=== PATIENT | female | born 1930 | race African-American/Black ===

== ENCOUNTER 2018-04-07 16:47 | Inpatient (IN) | payer OTHER ==
--- OUTSIDE RECORDS SUMMARY | 2018-04-07 16:49 | XMS REPORT | Clinical Summary ---
:1930 Author Organization [facility] Address [address] [place] [address] Care Team Providers Name Role Phone Sharpless Primary Care Provider Unavailable Allergies Active Allergy Reactions Severity Noted Date Comments Penicillins Other (See Comments) High 09/22/2015 Unknown reaction Medications Medication Sig Dispensed Refills Start Date End Date Status tolterodine (DETROL) 2 Take 2 mg by 0 Active MG tabletIndications: mouth 2 (two) Urinary Urgency times daily. allopurinol (ZYLOPRIM) Take 200 mg by 0 Active 100 MG mouth daily . tabletIndications: gout rivaroxaban (XARELTO) 20 Take 20 mg by 0 Active mg Tab mouth daily. tabletIndications: heart stent amLODIPine (NORVASC) 10 Take 10 mg by 0 Active MG tablet mouth daily. atenolol (TENORMIN) 50 Take 50 mg by 0 Active MG tablet mouth daily. furosemide (LASIX) 40 MG Take 60 mg by 0 Active tablet mouth daily . levETIRAcetam (KEPPRA) Take 750 mg by 0 Active 750 MG tablet mouth 2 (two) times daily. sertraline (ZOLOFT) 25 Take 25 mg by 0 Active MG tablet mouth daily. valsartan (DIOVAN) 160 Take 160 mg by 0 Active MG tablet mouth daily. benzonatate (TESSALON) Take 100 mg by 0 Active 100 MG capsule mouth every 6 (six) hours as needed for Cough. doxycycline (DORYX) 100 Take 100 mg by 0 Active MG EC tablet mouth 2 (two) times daily. 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 Last Filed Vital Signs Not on file Plan of Treatment Not on file Results Not on fileafter 04/06/2017 Insurance Payer Benefit Plan / Group Subscriber ID Type Phone Address [facility] Maps Contracted Advance Directives For more information, please contact:[address] [phone] Code Status Date Activated Date Inactivated Comments Full Code 09/22/2015 10:53 AM 10/03/2015 5:33 PM This code status was determined by: Patient
--- OUTSIDE RECORDS SUMMARY | 2018-04-07 16:50 | XMS REPORT ---
:1930 [facility] [address] [place] [id number] Care Team Providers Name Role Phone JORDEN MUNOZ Unavailable Unavailable Problems This patient has no known problems. Allergies, Adverse Reactions, Alerts This patient has no known allergies or adverse reactions. Medications This patient has no known medications. Results Test Description Test Time Test Comments Text Results Atomic Results Result Comments BLOOD CULTURE 2016-10-29 18:00:00 Test Item Value Reference Range Comments CULTURE (BEAKER) (test fzxi=5598) No growth in 5 days BLOOD [id number] 18:00:00 Test Item Value Reference Range Comments CULTURE (BEAKER) (test xvbq=7090) No growth in 5 days POCT-GLUCOSE [id number] 07:52:00 Test Item Value Reference Range Comments POC-GLUCOSE METER (BEAKER) 95 mg/dL 70-[address] [facility] [address] [facility] (test vhul=9170) [facility] [address] TSH/FREE T4 IF [id number] 06:35:00 Test Item Value Reference Range Comments THYROID STIMULATING HORMONE (BEAKER) (test 1.58 uIU/mL 0.35-4.94 knwq=830) VITAMIN D, [id number] 05:55:00 Test Item Value Reference Range Comments VITAMIN D 25-OH (BEAKER) (test wfkn=1373) < ng/mL 13.0-47.8 TROPONIN [id number] 05:12:00 Test Item Value Reference Range Comments TROPONIN I (BEAKER) (test rwgk=965) 0.02 ng/mL 0.00-0.03 Effective 01/24/2014: Reference Range ChangeNew: 0.00-0.03 Previous 0.00- 0.15Troponin I (TnI) levels must be interpreted in the context of the presenting symptoms and the clinical findings. Elevated TnI levels indicate myocardial damage, but are not specific for ischemic heart disease. Elevated TnI levels are seen in patients with other cardiac conditions (including myocarditis and congestive heartfailure), and slight TnI elevations occur in patients with other conditions, including sepsis, renalfailure, acidosis, acute neurological disease, and persistent tachyarrhythmia.[id number] 05:04: 00 Test Item Value Reference Range Comments PHOSPHORUS (BEAKER) (test ivbp=473) 2.9 mg/dL 2.3-4.7 [id number] 05:04:00 Test Item Value Reference Range Comments MAGNESIUM (BEAKER) (test evfo=383) 1.9 mg/dL 1.6-2.6 BASIC METABOLIC [id number] 05:04:00 Test Item Value Reference Range Comments SODIUM (BEAKER) (test 142 meq/L 136-145 qkyx=238) POTASSIUM (BEAKER) (test 3.9 meq/L 3.5-5.1 vtgn=909) CHLORIDE (BEAKER) (test 112 meq/L 98-107 qvjw=473) CO2 (BEAKER) (test 23 meq/L 22-29 sjia=028) BLOOD UREA NITROGEN 19 mg/dL 7-21 (BEAKER) (test fmpl=232) CREATININE (BEAKER) (test 0.84 mg/dL 0.57-1.25 iqpx=634) GLUCOSE RANDOM (BEAKER) 107 mg/dL 70-105 (test rggd=928) CALCIUM (BEAKER) (test 8.9 mg/dL 8.4-10.2 lbax=031) EGFR (BEAKER) (test 78 mL/min/1.73 sq m ESTIMATED GFR IS NOT lybu=8295) ACCURATE CREATININE CLEARANCE IN PREDICTING GLOMERULAR FILTRATION RATE. ESTIMATED GFR IS NOT APPLICABLE FOR DIALYSIS PATIENTS. CBC W/PLT COUNT & AUTO [id number] 04:51:00 Test Item Value Reference Range Comments WHITE BLOOD CELL COUNT (BEAKER) (test ipvx=609) 8.3 K/ L 3.5-10.5 RED BLOOD CELL COUNT (BEAKER) (test nxtd=294) 3.07 M/ L 3.93-5.22 HEMOGLOBIN (BEAKER) (test gmqu=990) 9.2 GM/DL 11.2-15.7 HEMATOCRIT (BEAKER) (test akxv=157) 29.1 % 34.1-44.9 MEAN CORPUSCULAR VOLUME (BEAKER) (test uabq=800) 94.8 fL 79.4-94.8 MEAN CORPUSCULAR HEMOGLOBIN (BEAKER) (test 30.0 pg 25.6-32.2 glrv=455) MEAN CORPUSCULAR HEMOGLOBIN CONC (BEAKER) (test 31.6 GM/DL 32.2-35.5 usyu=875) RED CELL DISTRIBUTION WIDTH (BEAKER) (test 14.3 % 11.7-14.4 cnvw=474) PLATELET COUNT (BEAKER) (test gejo=194) 182 K/CU MM 150-450 MEAN PLATELET VOLUME (BEAKER) (test cmnk=989) 9.8 fL 9.4-12.3 NUCLEATED RED BLOOD CELLS (BEAKER) (test 0 /100 WBC 0-0 jkoy=521) NEUTROPHILS RELATIVE PERCENT (BEAKER) (test 61 % zsrj=483) LYMPHOCYTES RELATIVE PERCENT (BEAKER) (test 31 % nsds=113) MONOCYTES RELATIVE PERCENT (BEAKER) (test 8 % qxht=371) EOSINOPHILS RELATIVE PERCENT (BEAKER) (test 0 % mygw=820) BASOPHILS RELATIVE PERCENT (BEAKER) (test 1 % tlsg=618) NEUTROPHILS ABSOLUTE COUNT (BEAKER) (test 5.03 K/ L 1.56-6.13 ylme=977) LYMPHOCYTES ABSOLUTE COUNT (BEAKER) (test 2.54 K/ L 1.18-3.74 cfav=919) MONOCYTES ABSOLUTE COUNT (BEAKER) (test 0.64 K/ L 0.24-0.36 koiw=758) EOSINOPHILS ABSOLUTE COUNT (BEAKER) (test 0.01 K/ L 0.04-0.36 bqhz=789) BASOPHILS ABSOLUTE COUNT (BEAKER) (test 0.05 K/ L 0.01-0.08 ezjs=266) IMMATURE GRANULOCYTES-RELATIVE PERCENT (BEAKER) 1 % 0-1 (test lsxq=7390) POCT-GLUCOSE [id number] 23:47:00 Test Item Value Reference Range Comments POC-GLUCOSE METER (BEAKER) 121 mg/dL 70-[address] [facility] [address] [facility] (test cvfi=9380) [place] [address] CBC W/PLT COUNT & AUTO [id number] 07:13:00 Test Item Value Reference Range Comments WHITE BLOOD CELL COUNT (BEAKER) (test spbs=211) 8.9 K/ L 3.5-10.5 RED BLOOD CELL COUNT (BEAKER) (test mota=162) 3.47 M/ L 3.93-5.22 HEMOGLOBIN (BEAKER) (test zzjh=936) 10.6 GM/DL 11.2-15.7 HEMATOCRIT (BEAKER) (test ugja=228) 33.4 % 34.1-44.9 MEAN CORPUSCULAR VOLUME (BEAKER) (test nsyx=488) 96.3 fL 79.4-94.8 MEAN CORPUSCULAR HEMOGLOBIN (BEAKER) (test 30.5 pg 25.6-32.2 nbyo=711) MEAN CORPUSCULAR HEMOGLOBIN CONC (BEAKER) (test 31.7 GM/DL 32.2-35.5 yicn=506) RED CELL DISTRIBUTION WIDTH (BEAKER) (test 14.6 % 11.7-14.4 aeve=529) PLATELET COUNT (BEAKER) (test xtfn=690) 206 K/CU MM 150-450 MEAN PLATELET VOLUME (BEAKER) (test gnec=324) 10.2 fL 9.4-12.3 NUCLEATED RED BLOOD CELLS (BEAKER) (test 0 /100 WBC 0-0 uoyq=199) NEUTROPHILS RELATIVE PERCENT (BEAKER) (test 66 % wxph=011) LYMPHOCYTES RELATIVE PERCENT (BEAKER) (test 28 % zryj=032) MONOCYTES RELATIVE PERCENT (BEAKER) (test 6 % onic=051) EOSINOPHILS RELATIVE PERCENT (BEAKER) (test 0 % gpxl=453) BASOPHILS RELATIVE PERCENT (BEAKER) (test 1 % ckfd=098) NEUTROPHILS ABSOLUTE COUNT (BEAKER) (test 5.84 K/ L 1.56-6.13 lfjy=726) LYMPHOCYTES ABSOLUTE COUNT (BEAKER) (test 2.47 K/ L 1.18-3.74 tlng=899) MONOCYTES ABSOLUTE COUNT (BEAKER) (test 0.51 K/ L 0.24-0.36 yqcu=919) EOSINOPHILS ABSOLUTE COUNT (BEAKER) (test 0.01 K/ L 0.04-0.36 ddmt=280) BASOPHILS ABSOLUTE COUNT (BEAKER) (test 0.06 K/ L 0.01-0.08 mwji=595) IMMATURE GRANULOCYTES-RELATIVE PERCENT (BEAKER) 0 % 0-1 (test mvgd=1004) PHENYTOIN LEVEL, [id number] 06:29:00 Test Item Value Reference Range Comments PHENYTOIN (DILANTIN) (BEAKER) (test eaqr=082) 21.3 ug/mL 10.0-20.0 Prior to morning dose [id number] 06:18:00 Test Item Value Reference Range Comments PHOSPHORUS (BEAKER) (test zsyh=555) 2.8 mg/dL 2.3-4.7 [id number] 06:18:00 Test Item Value Reference Range Comments MAGNESIUM (BEAKER) (test hxyy=836) 2.1 mg/dL 1.6-2.6 BASIC METABOLIC [id number] 06:18:00 Test Item Value Reference Range Comments SODIUM (BEAKER) (test 142 meq/L 136-145 uody=599) POTASSIUM (BEAKER) (test 3.7 meq/L 3.5-5.1 oipi=970) CHLORIDE (BEAKER) (test 109 meq/L 98-107 klou=743) CO2 (BEAKER) (test 24 meq/L 22-29 moac=679) BLOOD UREA NITROGEN 12 mg/dL 7-21 (BEAKER) (test dfpo=642) CREATININE (BEAKER) (test 0.78 mg/dL 0.57-1.25 lsei=730) GLUCOSE RANDOM (BEAKER) 87 mg/dL 70-105 (test gadz=818) CALCIUM (BEAKER) (test 9.4 mg/dL 8.4-10.2 nfwr=122) EGFR (BEAKER) (test 85 mL/min/1.73 sq m ESTIMATED GFR IS NOT jyhm=1565) ACCURATE CREATININE CLEARANCE IN PREDICTING GLOMERULAR FILTRATION RATE. ESTIMATED GFR IS NOT APPLICABLE FOR DIALYSIS PATIENTS. [id number] 06:12:00 Test Item Value Reference Range Comments POTASSIUM (BEAKER) (test 4.0 meq/L 3.5-5.1 Specimen slightly hemolyzed gkal=778) [id number] 09:55:00 Test Item Value Reference Range Comments PHOSPHORUS (BEAKER) (test dpks=848) 2.5 mg/dL 2.3-4.7 PHENYTOIN LEVEL, [id number] 07:57:00 Test Item Value Reference Range Comments PHENYTOIN (DILANTIN) (BEAKER) (test zowa=659) 20.0 ug/mL 10.0-20.0 BLOOD GAS, [id number] 05:02:00 Test Item Value Reference Range Comments PH ARTERIAL (BEAKER) (test bvvv=061) 7.46 7.35-7.45 PCO2 ARTERIAL (BEAKER) (test bypf=537) 39 mmHg 35-45 PO2 ARTERIAL (BEAKER) (test zsdd=736) 144 mmHg 80-90 O2 SATURATION ARTERIAL (BEAKER) (test ijsc=033) 99.0 % 96.0-97.0 HCO3 ARTERIAL (BEAKER) (test dgnw=394) 27 mmol/L 21-29 BASE EXCESS ARTERIAL (BEAKER) (test dekr=888) 3.0 mmol/L -2.0-3.0 PATIENT TEMPERATURE (BEAKER) (test lzhi=8254) 37.0 C FIO2 (BEAKER) (test crqn=2206) 21.0 % BASIC METABOLIC [id number] 04:34:00 Test Item Value Reference Range Comments SODIUM (BEAKER) (test 144 meq/L 136-145 iora=983) POTASSIUM (BEAKER) (test 3.5 meq/L 3.5-5.1 tfwb=733) CHLORIDE (BEAKER) (test 112 meq/L 98-107 hqdz=848) CO2 (BEAKER) (test 24 meq/L 22-29 kzgw=352) BLOOD UREA NITROGEN 9 mg/dL 7-21 (BEAKER) (test hcbv=409) CREATININE (BEAKER) (test 0.80 mg/dL 0.57-1.25 ifsu=779) GLUCOSE RANDOM (BEAKER) 108 mg/dL 70-105 (test dbzf=713) CALCIUM (BEAKER) (test 9.2 mg/dL 8.4-10.2 jhvq=831) EGFR (BEAKER) (test 82 mL/min/1.73 sq m ESTIMATED GFR IS NOT zrgq=2903) ACCURATE CREATININE CLEARANCE IN PREDICTING GLOMERULAR FILTRATION RATE. ESTIMATED GFR IS NOT APPLICABLE FOR DIALYSIS PATIENTS. [id number] 04:30:00 Test Item Value Reference Range Comments MAGNESIUM (BEAKER) (test jzla=700) 2.3 mg/dL 1.6-2.6 CBC W/PLT COUNT & AUTO [id number] 04:12:00 Test Item Value Reference Range Comments WHITE BLOOD CELL COUNT (BEAKER) (test vmcw=314) 9.7 K/ L 3.5-10.5 RED BLOOD CELL COUNT (BEAKER) (test mugi=168) 3.07 M/ L 3.93-5.22 HEMOGLOBIN (BEAKER) (test abot=290) 9.4 GM/DL 11.2-15.7 HEMATOCRIT (BEAKER) (test qweo=293) 29.4 % 34.1-44.9 MEAN CORPUSCULAR VOLUME (BEAKER) (test lald=378) 95.8 fL 79.4-94.8 MEAN CORPUSCULAR HEMOGLOBIN (BEAKER) (test 30.6 pg 25.6-32.2 hffg=101) MEAN CORPUSCULAR HEMOGLOBIN CONC (BEAKER) (test 32.0 GM/DL 32.2-35.5 myja=128) RED CELL DISTRIBUTION WIDTH (BEAKER) (test 14.4 % 11.7-14.4 tvhy=051) PLATELET COUNT (BEAKER) (test udiq=718) 182 K/CU MM 150-450 MEAN PLATELET VOLUME (BEAKER) (test xidy=468) 9.4 fL 9.4-12.3 NUCLEATED RED BLOOD CELLS (BEAKER) (test 0 /100 WBC 0-0 ubat=991) NEUTROPHILS RELATIVE PERCENT (BEAKER) (test 71 % tfcl=283) LYMPHOCYTES RELATIVE PERCENT (BEAKER) (test 21 % ngtr=796) MONOCYTES RELATIVE PERCENT (BEAKER) (test 7 % hpxe=861) EOSINOPHILS RELATIVE PERCENT (BEAKER) (test 0 % iyfz=542) BASOPHILS RELATIVE PERCENT (BEAKER) (test 1 % rswy=107) NEUTROPHILS ABSOLUTE COUNT (BEAKER) (test 6.89 K/ L 1.56-6.13 ekom=261) LYMPHOCYTES ABSOLUTE COUNT (BEAKER) (test 2.05 K/ L 1.18-3.74 auog=278) MONOCYTES ABSOLUTE COUNT (BEAKER) (test 0.65 K/ L 0.24-0.36 onej=396) EOSINOPHILS ABSOLUTE COUNT (BEAKER) (test 0.01 K/ L 0.04-0.36 owna=106) BASOPHILS ABSOLUTE COUNT (BEAKER) (test 0.06 K/ L 0.01-0.08 axeq=764) IMMATURE GRANULOCYTES-RELATIVE PERCENT (BEAKER) 0 % 0-1 (test qdfa=0182) PHENYTOIN LEVEL, [id number] 22:07:00 Test Item Value Reference Range Comments PHENYTOIN (DILANTIN) (BEAKER) (test ruzq=588) 14.2 ug/mL 10.0-20.0 POCT-GLUCOSE [id number] 13:56:00 Test Item Value Reference Range Comments POC-GLUCOSE METER (BEAKER) 119 mg/dL 70-[address] [facility] [address] [place] [address] (test azja=4286) [facility] [address] URINE [id number] 11:44:00 Test Item Value Reference Range Comments CULTURE (BEAKER) (test htth=6056) See comment <10,000 col/mL Gram Negative rodsSPUTUM CULTURE + GRAM [id number] 09:04: 00 Test Item Value Reference Range Comments CULTURE (BEAKER) (test 4+ Normal respiratory rachel ijyk=7517) present GRAM STAIN RESULT (BEAKER) 1+ WBCs (test bfsz=0276) GRAM STAIN RESULT (BEAKER) 0-5 epithelial cells (test wwnq=26918) GRAM STAIN RESULT (BEAKER) 2+ gram positive cocci in chains (test wyso=26446) and pairs [id number] 05:12:00 Test Item Value Reference Range Comments MAGNESIUM (BEAKER) (test 2.5 mg/dL 1.6-2.6 Specimen slightly hemolyzed plqt=711) [id number] 05:12:00 Test Item Value Reference Range Comments PHOSPHORUS (BEAKER) (test 2.2 mg/dL 2.3-4.7 Specimen slightly hemolyzed ipsj=574) BASIC METABOLIC [id number] 05:12:00 Test Item Value Reference Range Comments SODIUM (BEAKER) (test 142 meq/L 136-145 msph=870) POTASSIUM (BEAKER) (test 4.0 meq/L 3.5-5.1 Specimen slightly eulq=866) hemolyzed CHLORIDE (BEAKER) (test 108 meq/L 98-107 ipge=413) CO2 (BEAKER) (test 22 meq/L 22-29 xyuo=066) BLOOD UREA NITROGEN 11 mg/dL 7-21 (BEAKER) (test ngcw=637) CREATININE (BEAKER) (test 0.92 mg/dL 0.57-1.25 Specimen slightly ipym=894) hemolyzed GLUCOSE RANDOM (BEAKER) 94 mg/dL 70-105 (test ahxh=433) CALCIUM (BEAKER) (test 9.7 mg/dL 8.4-10.2 tjdn=292) EGFR (BEAKER) (test mL/min/1.73 sq m INSUFFICIENT CLINICAL DATA uvqd=1191) TO CALCULATE ESTIMATED GFR. CBC W/PLT COUNT & AUTO [id number] 05:01:00 Test Item Value Reference Range Comments WHITE BLOOD CELL COUNT (BEAKER) (test heyq=996) 12.6 K/ L 3.5-10.5 RED BLOOD CELL COUNT (BEAKER) (test ckec=801) 3.42 M/ L 3.93-5.22 HEMOGLOBIN (BEAKER) (test ezlb=866) 10.3 GM/DL 11.2-15.7 HEMATOCRIT (BEAKER) (test kcki=094) 32.4 % 34.1-44.9 MEAN CORPUSCULAR VOLUME (BEAKER) (test sgto=404) 94.7 fL 79.4-94.8 MEAN CORPUSCULAR HEMOGLOBIN (BEAKER) (test 30.1 pg 25.6-32.2 twfn=037) MEAN CORPUSCULAR HEMOGLOBIN CONC (BEAKER) (test 31.8 GM/DL 32.2-35.5 oloc=898) RED CELL DISTRIBUTION WIDTH (BEAKER) (test 14.2 % 11.7-14.4 hdqn=833) PLATELET COUNT (BEAKER) (test rcyn=403) 219 K/CU MM 150-450 MEAN PLATELET VOLUME (BEAKER) (test slui=939) 10.0 fL 9.4-12.3 NUCLEATED RED BLOOD CELLS (BEAKER) (test 0 /100 WBC 0-0 jmlr=417) NEUTROPHILS RELATIVE PERCENT (BEAKER) (test 57 % uhaj=416) LYMPHOCYTES RELATIVE PERCENT (BEAKER) (test 35 % qsqj=974) MONOCYTES RELATIVE PERCENT (BEAKER) (test 7 % wfzu=689) EOSINOPHILS RELATIVE PERCENT (BEAKER) (test 0 % cbpg=481) BASOPHILS RELATIVE PERCENT (BEAKER) (test 1 % bvki=249) NEUTROPHILS ABSOLUTE COUNT (BEAKER) (test 7.19 K/ L 1.56-6.13 mwxc=423) LYMPHOCYTES ABSOLUTE COUNT (BEAKER) (test 4.39 K/ L 1.18-3.74 ltst=917) MONOCYTES ABSOLUTE COUNT (BEAKER) (test 0.91 K/ L 0.24-0.36 exyy=664) EOSINOPHILS ABSOLUTE COUNT (BEAKER) (test 0.01 K/ L 0.04-0.36 vxwx=397) BASOPHILS ABSOLUTE COUNT (BEAKER) (test 0.06 K/ L 0.01-0.08 ical=285) IMMATURE GRANULOCYTES-RELATIVE PERCENT (BEAKER) 0 % 0-1 (test ahgt=2739) [id number] 21:19:00 Test Item Value Reference Range Comments POTASSIUM (BEAKER) (test tclj=557) 3.8 meq/L 3.5-5.1 POCT-GLUCOSE [id number] 18:19:00 Test Item Value Reference Range Comments POC-GLUCOSE METER (BEAKER) 113 mg/dL 70-110 TESTED AT [address] (test duhf=6203) [place] [address] POCT-GLUCOSE [id number] 13:32:00 Test Item Value Reference Range Comments POC-GLUCOSE METER (BEAKER) 107 mg/dL 70-110 TESTED AT [address] (test oudg=3287) [place] [address] POCT-GLUCOSE [id number] 07:32:00 Test Item Value Reference Range Comments POC-GLUCOSE METER (BEAKER) 105 mg/dL 70-110 TESTED AT [address] (test naqw=1582) [place] [address] BASIC METABOLIC [id number] 05:54:00 Test Item Value Reference Range Comments SODIUM (BEAKER) (test 143 meq/L 136-145 shsr=467) POTASSIUM (BEAKER) (test 3.3 meq/L 3.5-5.1 Specimen slightly edzx=663) hemolyzed CHLORIDE (BEAKER) (test 109 meq/L 98-107 xayc=779) CO2 (BEAKER) (test 24 meq/L 22-29 wgec=705) BLOOD UREA NITROGEN 11 mg/dL 7-21 (BEAKER) (test olky=038) CREATININE (BEAKER) (test 0.79 mg/dL 0.57-1.25 Specimen slightly qizj=002) hemolyzed GLUCOSE RANDOM (BEAKER) 98 mg/dL 70-105 (test tskt=668) CALCIUM (BEAKER) (test 9.2 mg/dL 8.4-10.2 nwej=475) EGFR (BEAKER) (test mL/min/1.73 sq m INSUFFICIENT CLINICAL DATA ywya=1225) TO CALCULATE ESTIMATED GFR. BLOOD GAS, [id number] 05:44:00 Test Item Value Reference Range Comments PH ARTERIAL (BEAKER) (test wjzy=021) 7.45 7.35-7.45 PCO2 ARTERIAL (BEAKER) (test jplw=473) 40 mmHg 35-45 PO2 ARTERIAL (BEAKER) (test brji=161) 59 mmHg 80-90 O2 SATURATION ARTERIAL (BEAKER) (test lamp=914) 91.1 % 96.0-97.0 HCO3 ARTERIAL (BEAKER) (test drnv=835) 27 mmol/L 21-29 BASE EXCESS ARTERIAL (BEAKER) (test ntct=650) 2.6 mmol/L -2.0-3.0 PATIENT TEMPERATURE (BEAKER) (test crgg=7627) 37.5 C FIO2 (BEAKER) (test rfzr=6152) 40.0 % [id number] 05:38:00 Test Item Value Reference Range Comments MAGNESIUM (BEAKER) (test 2.4 mg/dL 1.6-2.6 Specimen slightly hemolyzed azfz=767) [id number] 05:38:00 Test Item Value Reference Range Comments PHOSPHORUS (BEAKER) (test 2.0 mg/dL 2.3-4.7 Specimen slightly hemolyzed qhjz=839) CBC W/PLT COUNT & AUTO [id number] 05:14:00 Test Item Value Reference Range Comments WHITE BLOOD CELL COUNT (BEAKER) (test unpx=099) 9.8 K/ L 3.5-10.5 RED BLOOD CELL COUNT (BEAKER) (test byfk=327) 3.07 M/ L 3.93-5.22 HEMOGLOBIN (BEAKER) (test takc=648) 9.5 GM/DL 11.2-15.7 HEMATOCRIT (BEAKER) (test vjmq=407) 29.6 % 34.1-44.9 MEAN CORPUSCULAR VOLUME (BEAKER) (test rnzk=107) 96.4 fL 79.4-94.8 MEAN CORPUSCULAR HEMOGLOBIN (BEAKER) (test 30.9 pg 25.6-32.2 zfxt=401) MEAN CORPUSCULAR HEMOGLOBIN CONC (BEAKER) (test 32.1 GM/DL 32.2-35.5 aghx=659) RED CELL DISTRIBUTION WIDTH (BEAKER) (test 14.2 % 11.7-14.4 ajbq=411) PLATELET COUNT (BEAKER) (test ajzo=533) 192 K/CU MM 150-450 MEAN PLATELET VOLUME (BEAKER) (test vhub=928) 10.0 fL 9.4-12.3 NUCLEATED RED BLOOD CELLS (BEAKER) (test 0 /100 WBC 0-0 cxne=671) NEUTROPHILS RELATIVE PERCENT (BEAKER) (test 74 % ifqv=925) LYMPHOCYTES RELATIVE PERCENT (BEAKER) (test 18 % mbbb=901) MONOCYTES RELATIVE PERCENT (BEAKER) (test 8 % drgu=600) EOSINOPHILS RELATIVE PERCENT (BEAKER) (test 0 % wzjg=665) BASOPHILS RELATIVE PERCENT (BEAKER) (test 0 % pgax=383) NEUTROPHILS ABSOLUTE COUNT (BEAKER) (test 7.28 K/ L 1.56-6.13 dndi=343) LYMPHOCYTES ABSOLUTE COUNT (BEAKER) (test 1.72 K/ L 1.18-3.74 elvx=449) MONOCYTES ABSOLUTE COUNT (BEAKER) (test 0.76 K/ L 0.24-0.36 ddpw=598) EOSINOPHILS ABSOLUTE COUNT (BEAKER) (test 0.00 K/ L 0.04-0.36 nvus=587) BASOPHILS ABSOLUTE COUNT (BEAKER) (test 0.03 K/ L 0.01-0.08 myix=368) IMMATURE GRANULOCYTES-RELATIVE PERCENT (BEAKER) 1 % 0-1 (test jbnj=5364) RAD, CHEST, 1 VIEW, NON [id number] 03:01:00Reason for exam:->ETT verficiationShould this be performed at the bedside?->YesFINAL REPORT EXAMINATION: AP PORTABLE CHEST RADIOGRAPH CLINICAL INDICATION: Intubated. Evaluate positioning of the endotracheal tube. FINDINGS: Compared with 10/24/2016. The tip of the endotracheal tube has been pulled back and now projects over the midline approximately 3 cm superior to the rfanklin. The tip of the nasogastric tube has been pulled back and now projects over the left lung base near the level of the diaphragm. The nasogastric tube could be advanced if clinically appropriate. The heart is enlarged but stable. Mediastinal contours are grossly unchanged with a mildly dilated and ectatic thoracic aorta. No definite evidence of new lobar lung consolidation, pulmonary edema, large pleural effusion or pneumothorax. Elevation of the right hemidiaphragm is again noted. IMPRESSION: In summary, repositioning of the endotracheal tube as detailed. Consider advancing the nasogastric tube. Otherwise stable exam. Signed: Presley Robert MDReport Verified Date/Time: 2016 03:01:35 Reading Location: [address] Reading Room TROPONIN [id number] 02:55:00 Test Item Value Reference Range Comments TROPONIN I (BEAKER) (test pind=759) 0.31 ng/mL 0.00-0.03 Effective 01/24/2014: Reference Range ChangeNew: 0.00-0.03 Previous 0.00- 0.15Troponin I (TnI) levels must be interpreted in the context of the presenting symptoms and the clinical findings. Elevated TnI levels indicate myocardial damage, but are not specific for ischemic heart disease. Elevated TnI levels are seen in patients with other cardiac conditions (including myocarditis and congestive heartfailure), and slight TnI elevations occur in patients with other conditions, including sepsis, renalfailure, acidosis, acute neurological disease, and persistent tachyarrhythmia.CREATINE KINASE (CK), TOTAL AND [id number] 02:36:00 Test Item Value Reference Range Comments CREATINE KINASE TOTAL (BEAKER) (test mwcs=894) 260 U/L 29-200 CREATINE KINASE-MB (BEAKER) (test gbxe=840) 4.5 ng/mL 0.0-6.6 CREATINE KINASE-MB INDEX (BEAKER) (test dhwl=834) 1.7 % Effective 01/24/2014: CK-MB Reference Range ChangeNew: 0.0-6.6 Previous: 0.0- 4.9CK-MB Reference Range:<6.7 Normal6.7-10.0 Borderline>10.0 AbnormalPOCT-GLUCOSE [id number] 00:18:00 Test Item Value Reference Range Comments POC-GLUCOSE METER (BEAKER) 103 mg/dL 70-110 TESTED AT [address] (test vjlb=4031) [place] [id number] BASIC METABOLIC [id number] 18:32:00 Test Item Value Reference Range Comments SODIUM (BEAKER) (test 142 meq/L 136-145 lrta=552) POTASSIUM (BEAKER) (test 3.0 meq/L 3.5-5.1 yqah=327) CHLORIDE (BEAKER) (test 107 meq/L 98-107 kirm=864) CO2 (BEAKER) (test 22 meq/L 22-29 jotn=770) BLOOD UREA NITROGEN 14 mg/dL 7-21 (BEAKER) (test jopl=976) CREATININE (BEAKER) (test 0.97 mg/dL 0.57-1.25 laum=951) GLUCOSE RANDOM (BEAKER) 119 mg/dL 70-105 (test yyjg=780) CALCIUM (BEAKER) (test 8.9 mg/dL 8.4-10.2 luwa=178) EGFR (BEAKER) (test mL/min/1.73 sq m INSUFFICIENT CLINICAL DATA njqj=7858) TO CALCULATE ESTIMATED GFR. [id number] 18:23:00 Test Item Value Reference Range Comments PHOSPHORUS (BEAKER) (test yois=874) 1.6 mg/dL 2.3-4.7 [id number] 18:23:00 Test Item Value Reference Range Comments MAGNESIUM (BEAKER) (test exos=152) 1.6 mg/dL 1.6-2.6 POCT-GLUCOSE [id number] 18:16:00 Test Item Value Reference Range Comments POC-GLUCOSE METER (BEAKER) 118 mg/dL 70-110 TESTED AT [address] (test rjrh=7874) [place] [address] TROPONIN [id number] 16:10:00 Test Item Value Reference Range Comments TROPONIN I (BEAKER) (test zqfv=598) 0.27 ng/mL 0.00-0.03 Effective 01/24/2014: Reference Range ChangeNew: 0.00-0.03 Previous 0.00- 0.15Troponin I (TnI) levels must be interpreted in the context of the presenting symptoms and the clinical findings. Elevated TnI levels indicate myocardial damage, but are not specific for ischemic heart disease. Elevated TnI levels are seen in patients with other cardiac conditions (including myocarditis and congestive heartfailure), and slight TnI elevations occur in patients with other conditions, including sepsis, renalfailure, acidosis, acute neurological disease, and persistent tachyarrhythmia.CREATINE KINASE (CK), TOTAL AND [id number] 15:44:00 Test Item Value Reference Range Comments CREATINE KINASE TOTAL (BEAKER) (test ewkk=032) 117 U/L 29-200 CREATINE KINASE-MB (BEAKER) (test xhua=388) 5.0 ng/mL 0.0-6.6 CREATINE KINASE-MB INDEX (BEAKER) (test jayj=630) 4.3 % Effective 01/24/2014: CK-MB Reference Range ChangeNew: 0.0-6.6 Previous: 0.0- 4.9CK-MB Reference Range:<6.7 Normal6.7-10.0 Borderline>10.0 AbnormalURINALYSIS W/ [id number] 15:35:00 Test Item Value Reference Range Comments COLOR (BEAKER) (test tyuq=446) Light Yellow CLARITY (BEAKER) (test uvdy=519) Clear SPECIFIC GRAVITY UA (BEAKER) (test lndp=393) 1.006 1.001-1.035 PH UA (BEAKER) (test iueu=364) 7.5 5.0-8.0 PROTEIN UA (BEAKER) (test azrp=176) Negative Negative GLUCOSE UA (BEAKER) (test nlha=345) Negative Negative KETONES UA (BEAKER) (test pdfw=243) Negative Negative BILIRUBIN UA (BEAKER) (test eodo=330) Negative Negative BLOOD UA (BEAKER) (test nppt=558) Trace Negative NITRITE UA (BEAKER) (test qtkv=172) Negative Negative LEUKOCYTE ESTERASE UA (BEAKER) (test dzuu=248) Negative Negative UROBILINOGEN UA (BEAKER) (test gzwz=994) 0.2 mg/dL 0.2-1.0 RBC UA (BEAKER) (test vjvn=493) 2 /HPF WBC UA (BEAKER) (test mchf=013) 2 /HPF BACTERIA (BEAKER) (test gsqm=828) Rare SQUAMOUS EPITHELIAL (BEAKER) (test wcow=570) 1 /HPF SOURCE(BEAKER) (test qapi=3240) Urine, [place] HEPATIC FUNCTION [id number] 15:06:00 Test Item Value Reference Range Comments TOTAL PROTEIN (BEAKER) (test kdze=188) 7.4 gm/dL 6.0-8.3 ALBUMIN (BEAKER) (test pclo=1932) 3.6 g/dL 3.5-5.0 BILIRUBIN TOTAL (BEAKER) (test hfbl=778) 0.3 mg/dL 0.2-1.2 BILIRUBIN DIRECT (BEAKER) (test yrmo=976) 0.2 mg/dL 0.1-0.5 ALKALINE PHOSPHATASE (BEAKER) (test dspi=886) 97 U/L 40-150 AST (SGOT) (BEAKER) (test tadp=923) 20 U/L 5-34 ALT (SGPT) (BEAKER) (test vdjc=582) 8 U/L 6-55 PROTHROMBIN TIME/[id number] 14:53:00 Test Item Value Reference Range Comments PROTIME (BEAKER) (test aofk=520) 17.0 seconds 11.7-14.7 INR (BEAKER) (test avmt=760) 1.4 <=5.9 RECOMMENDED COUMADIN/WARFARIN INR THERAPY RANGESSTANDARD DOSE: 2.0 - 3.0 Includes: PROPHYLAXIS forvenous thrombosis, systemic embolization; TREATMENT for venous thrombosis and/or pulmonary embolus.HIGH RISK: Target INR is 2.5-3.5 for patients with mechanical heart valves.[id number] 14:53:00 Test Item Value Reference Range Comments PARTIAL THROMBOPLASTIN TIME (BEAKER) (test 33.9 seconds 22.5-36.0 zqxq=524) BLOOD GAS, [id number] 14:44:00 Test Item Value Reference Range Comments PH ARTERIAL (BEAKER) (test wokx=014) 7.36 7.35-7.45 PCO2 ARTERIAL (BEAKER) (test fhsn=127) 46 mmHg 35-45 PO2 ARTERIAL (BEAKER) (test ecmb=682) 51 mmHg 80-90 O2 SATURATION ARTERIAL (BEAKER) (test foim=595) 84.2 % 96.0-97.0 HCO3 ARTERIAL (BEAKER) (test rxio=131) 25 mmol/L 21-29 BASE EXCESS ARTERIAL (BEAKER) (test oiex=289) -0.6 mmol/L -2.0-3.0 PATIENT TEMPERATURE (BEAKER) (test zxoj=1367) 37.0 C FIO2 (BEAKER) (test jdhc=8034) 40.0 %
[2018-04-07 17:35] LABS: Absolute Lymphocytes (CBC) 0.8 K/uL (0.7-4.9); Absolute Monocytes 1.6 K/uL (0.1-1.3); Absolute Neutrophil 28.1 K/uL (1.8-8.0); Basophils % 0.3 % (0-1.3); Hematocrit 33.7 % (36.0-45.0); Lymphocytes % 2.6 % (15.3-44.8); MPV 7.6 fL (7.6-11.3); Monocytes % 5.1 % (3.3-12.3)
[2018-04-07 17:40] LABS: RBC Red Blood Cell Count 3.51 M/uL (3.86-4.86)
--- NOTE | 2018-04-07 17:40 | RAD REPORT ---
EXAM DESCRIPTION: CT - Head Brain Wo Cont - 04/07/2018 5:33 pm CLINICAL HISTORY: Alteration of awareness/confusion COMPARISON: March 2017 TECHNIQUE: Computed axial tomography of the head was obtained. IV contrast was not requested. All CT scans are performed using dose optimization technique as appropriate and may include automated exposure control or mA/KV adjustment according to patient size. FINDINGS: An intracranial bleed is not seen . The ventricles are normal in caliber. No extra-axial fluid collection is noted. Moderate low-density areas within periventricular, deep and subcortical white matter likely represent ischemic changes secondary to small vessel disease. Fluid within the sinuses/ mastoids is not seen. IMPRESSION: No acute intracranial abnormality is seen. If patient's symptoms persist MRI of the bra in would be recommended.
[2018-04-07] MEDS ORDERED: LEVETIRACETAM IV ONE (17:45)
[2018-04-07] MEDS ORDERED: NA CHLORIDE 0.9% IV ONE (17:45)
[2018-04-07] MEDS ORDERED: NA CHLORIDE 0.9% 2,000 ML ONE (17:46)
--- NOTE | 2018-04-07 17:51 | RAD REPORT ---
EXAM DESCRIPTION: Jamir Single View04/07/2018 5:45 pm CLINICAL HISTORY: Chest pain COMPARISON: June 2017 FINDINGS: Mild right upper lobe opacities seen. Left lung appears clear. The heart is normal size IMPRESSION: Mild right upper lobe opacity probably representing pneumonia. This should be followed u ntil it is clear to exclude a post obstructive process/underlying mass
[2018-04-07 18:10] LABS: ALT/SGPT 16 U/L (12-78); AST/SGOT 14 U/L (15-37); Albumin 3.3 g/dL (3.4-5.0); Alkaline Phosphatase 99 U/L (45-117); BUN Blood Urea Nitrogen 12 mg/dL (7-18); Bicarbonate 28 mmol/L (21-32); Bilirubin Direct 0.1 mg/dL (0-0.2); Bilirubin Total 0.4 mg/dL (0.2-1.0); Glucose Level 118 mg/dL (74-106); Lipase 73 U/L (73-393); Protein, Total 7.9 g/dL (6.4-8.2); Sodium Level 139 mmol/L (136-145); Troponin (Emerg Dept Use Only) < 0.02 ng/mL (0.0-0.045)
[2018-04-07] MEDS ORDERED: CEFTRIAXONE/SWI 1gm 1 GM/10 ML SYR ONE (18:10)
[2018-04-07 18:22] LABS: Anisocytosis SLIGHT; Blood Morphology Comment NOTED (NOT SEEN); Platelet Estimate ADEQ
--- NOTE | 2018-04-07 18:33 | ER ---
Nurse's Notes [facility] Name: Lizette Evans Age: 87 yrs Sex: Female : 1930 Arrival Date: 04/07/2018 Time: 16:49 Bed 4 Private MD: Diagnosis: Urinary tract infection, site not specified;Sepsis due to unspecified staphylococcus Presentation: 04/07 16:45 Presenting complaint: EMS states: Generalized weakness and malaise x 3 days. hb 16:45 Method Of Arrival: [facility] hb 16:45 Transition of care: patient was not received from another setting of care. Onset of hb symptoms was April 04, 2018. Risk Assessment: Do you want to hurt yourself or someone else? Patient reports no desire to harm self or others. Initial Sepsis Screen: Does the patient meet any 2 criteria? No. Patient's initial sepsis screen is negative. Does the patient have a suspected source of infection? No. Patient's initial sepsis screen is negative. Care prior to arrival: Medication(s) given: Normal saline infusion, 500 mL, IV initiated. 20 GA, in the right antecubital area, Glucose check: 146. 16:45 Acuity: ERICKA 3 hb Historical: - Allergies: 16:57 PENICILLINS; hb - Home Meds: 18:51 allopurinol 100 mg Oral tab 2 tabs once daily [Active]; amlodipine 10 mg tab 1 tab once hb daily [Active]; atenolol 50 mg Oral tab 1 tab once daily [Active]; tolterodine 2 mg Oral tab 1 tab 2 times per day [Active]; Lamictal 150 mg Oral tab 2 times per day [Active]; 19:32 furosemide 40 mg oral tab 1.5 tab once daily [Active]; levetiracetam 750 mg Oral tab 1 ed1 tab every morning [Active]; levetiracetam 750 mg oral tab 0.5 tab every evening [Active]; losartan 50 mg oral tab 1 tab nightly [Active]; warfarin 1 mg Oral tab 2 tabs once daily [Active]; Risperdal 0.5 mg Oral tab 1 tab nightly [Active]; escitalopram oxalate 5 mg oral tab 1 tab once daily [Active]; - PMHx: 16:57 CVA; DVT; Hypertension; Seizures; TIA; hb - PSHx: 16:57 cardiac stent; hb - Immunization history:: Adult Immunizations up to date. - Social history:: Smoking status: Patient/guardian denies using tobacco, Patient/guardian denies using alcohol, street drugs, The patient lives with family. - Ebola Screening: : No symptoms or risks identified at this time. - Family history:: not pertinent. Screenin:00 Abuse screen: Denies threats or abuse. Denies injuries from another. Nutritional hb screening: No deficits noted. Tuberculosis screening: No symptoms or risk factors identified. Fall Risk Total Vega Fall Scale indicates High Risk Score (45 or more points). Fall prevention measures have been instituted. Side Rails Up X 2 Frequent Obs/Assessments Occuring As available patient and family educated on Fall Prevention Program and Strategies. Assessment: 16:55 General: Appears in no apparent distress. Behavior is calm, cooperative. Pain: Pain hb currently is 3 out of 10 on a pain scale. Neuro: Level of Consciousness is awake, alert, obeys commands, Oriented to person, place, time, situation. Cardiovascular: Heart tones S1 S2 present Capillary refill < 3 seconds Patient's skin is warm and dry. Respiratory: Airway is patent Trachea midline Respiratory effort is even, unlabored, Respiratory pattern is regular, symmetrical, Breath sounds are clear bilaterally. GI: Abdomen is obese, Bowel sounds present X 4 quads. Abd is soft and non tender X 4 quads. Reports lower abdominal pain. : Parent/caregiver report the patient having dark foul smelling urine x 2-3 days. EENT: No signs and/or symptoms were reported regarding the EENT system. Derm: Skin is intact, is healthy with good turgor. Musculoskeletal: No signs and/or symptoms reported regarding the musculoskeletal system. 17:45 Reassessment: Patient appears in no apparent distress at this time. No changes from hb previously documented assessment. Patient and/or family updated on plan of care and expected duration. Pain level reassessed. Patient is alert, oriented x 3, equal unlabored respirations, skin warm/dry/pink. 18:44 Reassessment: Patient appears in no apparent distress at this time. No changes from hb previously documented assessment. Patient and/or family updated on plan of care and expected duration. Pain level reassessed. Patient is alert, oriented x 3, equal unlabored respirations, skin warm/dry/pink. Vital Signs: 16:56 BP 148 / 68; Pulse 88; Resp 18; Temp 99; Pulse Ox 100% on R/A; Pain 3/10; hb 18:21 Weight 113.4 kg (R); hb 18:30 BP 126 / 59; Pulse 75; Resp 18; Pulse Ox 97% ; Pain 1/10; hb 19:32 BP 103 / 52; Pulse 84; Resp 18; Temp 97.5(O); Pulse Ox 96% on R/A; Pain 2/10; ed1 ED Course: 16:49 Patient arrived in ED. dl4 16:49 Peg Castelan MD is Attending Physician. ma2 16:56 Triage completed. hb 16:56 Arm band placed on. hb 17:[address] sj 17:25 EKG done, by certified cytotechnologist. reviewed by Peg Castelan MD. dt2 17:30 CT completed. Patient tolerated procedure well. Patient moved back from CT. vm2 17:36 CT Head Brain wo Cont In Process Unspecified. EDMS 17:42 Chest Single View XRAY In Process Unspecified. EDMS 18:20 Veronica Coffey, RN is Primary Nurse. hb 18:32 Gema Davila MD is Hospitalizing Provider. ma2 18:48 Patient has correct armband on for positive identification. Placed in gown. Bed in low hb position. Call light in reach. Side rails up X2. 19:18 Report received from Veronica Coffey RN. ed1 19:19 Primary Nurse role handed off by Veronica Coffey RN ed1 19:19 Sarah Valentine RN is Primary Nurse. ed1 19:37 No provider procedures requiring assistance completed. Maintain EMS IV. Dressing ed1 intact. Good blood return noted. Site clean \T\ dry. Gauge \T\ site: 20g right forearm. Patient admitted, IV remains in place. intact, No redness/swelling at site. Administered Medications: 17:15 Drug: NS 0.9% (30 ml/kg) 30 ml/kg Route: IV; Rate: bolus; Site: right antecubital; hb 19:49 Follow up: IV Status: Completed infusion ed1 19:51 Follow up: IV Intake: 3000ml ed1 18:10 Drug: Keppra 1000 mg Route: IV; Rate: calculated rate; Site: right antecubital; hb 18:30 Follow up: Response: No adverse reaction; IV Status: Completed infusion hb 18:22 Drug: Rocephin 1 grams Route: IV; Rate: calculated rate; Site: right antecubital; hb 18:45 Follow up: Response: No adverse reaction; IV Status: Completed infusion hb Intake: 19:51 IV: 3000ml; Total: 3000ml. ed1 Outcome: 18:33 Decision to Hospitalize by Provider. ma2 20:14 Admitted to ICU accompanied by nurse, family with patient, via stretcher, room ICU 7, ed1 on monitor, with chart, Report called to ALIYA Luciano 20:14 Condition: stable 20:14 Discharge instructions given to patient, family, Instructed on the need for admit, Demonstrated understanding of instructions. 20:14 Patient left the ED. ed1 Signatures: Dispatcher [employer] EDMS Yashira Sepulveda Erika, RN RN ed1 Veronica Coffey RN RN Ale Aguilar [facility] Peg Castelan MD MD ma2 Joanne Gomez dt2 Jose Camargo dl4 Corrections: (The following items were deleted from the chart) 19:32 18:51 Home Meds: benzonatate 100 mg Oral cap 1 cap every 6 hours for PRN for cough; ed1 19:32 18:51 Home Meds: doxycycline hyclate 100 mg Oral cap 1 cap every 12 hours; ed1 19:32 18:51 Home Meds: furosemide 80 mg Oral tab; ed1 19:32 18:51 Home Meds: levetiracetam 750 mg Oral tab 1 tab; ed1 19:32 18:51 Home Meds: sertraline 25 mg Oral tab 1 tab once daily; ed1 19:32 18:51 Home Meds: valsartan 160 mg Oral tab 1 tab once daily; ed1 19:32 18:51 Home Meds: Xarelto 20 mg Oral tab 1 tab once daily; ed1
--- NOTE | 2018-04-07 18:34 | EDPHYS ---
Physician Documentation [facility] Name: Lizette Evans Age: 87 yrs Sex: Female : 1930 Arrival Date: 04/07/2018 Time: 16:49 Bed 4 Private MD: ED Physician Peg Castelan HPI: 04/07 17:19 This 87 yrs old Black Female presents to ER via EMS with complaints of Altered Mental ma2 Status. 17:19 The patient presents with confusion, decreased mental status. Onset: The ma2 symptoms/episode began/occurred gradually, 1 day(s) ago. Associated signs and symptoms: Pertinent positives: Pertinent negatives: abdominal pain, chest pain, combativeness, diaphoresis, diarrhea, dizziness, headache, lightheadedness. Current symptoms: In the emergency department the patient's symptoms have resolved. The patient has experienced similar episodes in the past. Historical: - Allergies: 16:57 PENICILLINS; hb - Home Meds: 18:51 allopurinol 100 mg Oral tab 2 tabs once daily [Active]; amlodipine 10 mg tab 1 tab once hb daily [Active]; atenolol 50 mg Oral tab 1 tab once daily [Active]; tolterodine 2 mg Oral tab 1 tab 2 times per day [Active]; Lamictal 150 mg Oral tab 2 times per day [Active]; 19:32 furosemide 40 mg oral tab 1.5 tab once daily [Active]; levetiracetam 750 mg Oral tab 1 ed1 tab every morning [Active]; levetiracetam 750 mg oral tab 0.5 tab every evening [Active]; losartan 50 mg oral tab 1 tab nightly [Active]; warfarin 1 mg Oral tab 2 tabs once daily [Active]; Risperdal 0.5 mg Oral tab 1 tab nightly [Active]; escitalopram oxalate 5 mg oral tab 1 tab once daily [Active]; - PMHx: 16:57 CVA; DVT; Hypertension; Seizures; TIA; hb - PSHx: 16:57 cardiac stent; hb - Immunization history:: Adult Immunizations up to date. - Social history:: Smoking status: Patient/guardian denies using tobacco, Patient/guardian denies using alcohol, street drugs, The patient lives with family. - Ebola Screening: : No symptoms or risks identified at this time. - Family history:: not pertinent. ROS: 17:19 Constitutional: Negative for fever, chills, and weight loss, Cardiovascular: Negative ma2 for chest pain, palpitations, and edema, Respiratory: Negative for shortness of breath, cough, wheezing, and pleuritic chest pain, Abdomen/GI: Negative for abdominal pain, nausea, diarrhea, and constipation, Back: Negative for injury and pain, : Negative for injury, bleeding, discharge, and swelling, Skin: Negative for injury, rash, and discoloration, Neuro: Negative for headache, weakness, numbness, tingling, and seizure, Psych: Negative for depression, anxiety, suicide ideation, homicidal ideation, and hallucinations, Allergy/Immunology: Negative for hives, rash, and allergies. 17:19 Neuro: Positive for altered mental status, Negative for gait disturbance, hearing loss, ma2 numbness, speech changes, syncope. 17:19 All other systems are negative. Exam: 17:19 Constitutional: This is a well developed, well nourished patient who is awake, alert, ma2 and in no acute distress. Chest/axilla: Normal chest wall appearance and motion. Nontender with no deformity. No lesions are appreciated. Cardiovascular: Regular rate and rhythm with a normal S1 and S2. No gallops, murmurs, or rubs. Normal PMI, no JVD. No pulse deficits. Respiratory: Lungs have equal breath sounds bilaterally, clear to auscultation and percussion. No rales, rhonchi or wheezes noted. No increased work of breathing, no retractions or nasal flaring. Abdomen/GI: Soft, non-tender, with normal bowel sounds. No distension or tympany. No guarding or rebound. No evidence of tenderness throughout. MS/ Extremity: Pulses equal, no cyanosis. Neurovascular intact. Full, normal range of motion. Neuro: Awake and alert, GCS 15, oriented to person, place, time, and situation. Cranial nerves II-XII grossly intact. Motor strength 5/5 in all extremities. Sensory grossly intact. Cerebellar exam normal. Normal gait. Vital Signs: 16:56 BP 148 / 68; Pulse 88; Resp 18; Temp 99; Pulse Ox 100% on R/A; Pain 3/10; hb 18:21 Weight 113.4 kg (R); hb 18:30 BP 126 / 59; Pulse 75; Resp 18; Pulse Ox 97% ; Pain 1/10; hb 19:32 BP 103 / 52; Pulse 84; Resp 18; Temp 97.5(O); Pulse Ox 96% on R/A; Pain 2/10; ed1 MDM: 16:49 Patient medically screened. ma2 17:19 Differential Diagnosis: electrolyte abnormality, pneumonia, sepsis, UTI, volume ma2 depletion. 18:21 Data reviewed: vital signs, nurses notes. ma2 18:23 Sepsis 6 hour Focused Exam: Focused assessment performed: April 07, 2018 at 18:23 ma2 Heart: Regular rate/rhythm. Neuro: Patient's neurological exam has improved from previous exam. Counseling: I had a detailed discussion with the patient and/or guardian regarding: the historical points, exam findings, and any diagnostic results supporting the discharge/admit diagnosis, the presence of at least one elevated blood pressure reading (>120/80) during this emergency department visit. 18:31 Response to treatment: the patient's symptoms have markedly improved after treatment. ma2 ED course: patient has UTI and sepsis with wbc 30 given IVF and antibiotics her mental status is back to baseline, accepted by dr. boggs . 04/07 16:51 Order name: Blood Culture Adult (2) [facility] 04/07 16:51 Order name: Basic Metabolic Panel; Complete Time: 18:20 [facility] 04/07 16:51 Order name: CBC with Diff [facility] 04/07 16:51 Order name: Lactate; Complete Time: 18:20 [facility] 04/07 16:51 Order name: LFT's; Complete Time: 18:20 [facility] 04/07 16:51 Order name: Lipase; Complete Time: 18:20 [facility] 04/07 16:51 Order name: Procalcitonin [facility] 04/07 16:51 Order name: Protime (+inr); Complete Time: 18:20 [facility] 04/07 16:51 Order name: Ptt, Activated; Complete Time: 18:20 [facility] 04/07 16:51 Order name: Troponin (emerg Dept Use Only); Complete Time: 18:20 [facility] 04/07 16:51 Order name: Urine Microscopic Only [facility] 04/07 18:21 Order name: Urine Dipstick--Ancillary (enter results) bd 04/07 18:22 Order name: Manual Differential EDMS 04/07 16:51 Order name: Chest Single View XRAY; Complete Time: 18:20 ms2 04/07 16:51 Order name: Accucheck; Complete Time: 17:29 ms2 04/07 16:51 Order name: Cardiac monitoring; Complete Time: 17:29 ms2 04/07 16:51 Order name: EKG - Nurse/Tech; Complete Time: 17:29 ms2 04/07 16:51 Order name: IV Saline Lock - Large Bore; Complete Time: 17:29 [facility] 04/07 16:51 Order name: Labs collected and sent; Complete Time: 17:29 ms2 04/07 16:51 Order name: O2 Per Protocol; Complete Time: 17:29 ms2 04/07 16:51 Order name: O2 Sat Monitoring; Complete Time: 17:29 [facility] 04/07 16:51 Order name: Urine Dipstick-Ancillary (obtain specimen); Complete Time: 18:54 [facility] 04/07 17:21 Order name: CT Head Brain wo Cont; Complete Time: 17:45 [facility] 04/07 17:40 Order name: EKG Electrocardiogram [facility] 04/07 18:23 Order name: Straight Cath - Urine; Complete Time: 18:23 hb Administered Medications: 17:15 Drug: NS 0.9% (30 ml/kg) 30 ml/kg Route: IV; Rate: bolus; Site: right antecubital; hb 19:49 Follow up: IV Status: Completed infusion ed1 19:51 Follow up: IV Intake: 3000ml ed1 18:10 Drug: Keppra 1000 mg Route: IV; Rate: calculated rate; Site: right antecubital; hb 18:30 Follow up: Response: No adverse reaction; IV Status: Completed infusion hb 18:22 Drug: Rocephin 1 grams Route: IV; Rate: calculated rate; Site: right antecubital; hb 18:45 Follow up: Response: No adverse reaction; IV Status: Completed infusion hb Disposition: 04/07/18 18:33 Hospitalization ordered by Gema Boggs for Inpatient Admission. Preliminary diagnosis are Urinary tract infection, site not specified, Sepsis due to unspecified staphylococcus. - Bed requested for Intensive Care Unit. - Status is Inpatient Admission. ed1 - Condition is Stable. - Problem is new. - Symptoms are unchanged. UTI on Admission? No Signatures: Dispatcher [employer] EDGA Florencia Garcia, RN RN Sarah Valentine RN RN ed1 Veronica Coffey, RN RN Peg Castelan MD MD ms2 Corrections: (The following items were deleted from the chart) 18:25 17:42 CBC Smear Scan ordered. [facility] 19:24 18:33 Hospitalization Ordered by Gema Boggs MD for Inpatient Admission. Preliminary diagnosis is Urinary tract infection, site not specified; Sepsis due to unspecified staphylococcus. Bed requested for Telemetry/MedSurg (Inpatient). Status is Inpatient Admission. Condition is Stable. Problem is new. Symptoms are unchanged. UTI on Admission? No. ma2 19:32 18:51 Home Meds: benzonatate 100 mg Oral cap 1 cap every 6 hours for PRN for cough; ed1 19:32 18:51 Home Meds: doxycycline hyclate 100 mg Oral cap 1 cap every 12 hours; ed1 19:32 18:51 Home Meds: furosemide 80 mg Oral tab; ed1 19:32 18:51 Home Meds: levetiracetam 750 mg Oral tab 1 tab; ed1 19:32 18:51 Home Meds: sertraline 25 mg Oral tab 1 tab once daily; ed1 19:32 18:51 Home Meds: valsartan 160 mg Oral tab 1 tab once daily; ed1 19:32 18:51 Home Meds: Xarelto 20 mg Oral tab 1 tab once daily; ed1 20:14 19:24 04/07/2018 18:33 Hospitalization Ordered by Gema Boggs MD for Inpatient ed1 Admission. Preliminary diagnosis is Urinary tract infection, site not specified; Sepsis due to unspecified staphylococcus. Bed requested for Intensive Care Unit. Status is Inpatient Admission. Condition is Stable. Problem is new. Symptoms are unchanged. UTI on Admission? No. dw
[2018-04-07 18:57] LABS: Urine Blood 2+ (NEG); Urine Glucose NEGATIVE (NEG); Urine Protein NEGATIVE (NEG)
[2018-04-07 19:04] LABS: Urine Bacteria LOADED /HPF (<20); Urine Culture Reflex Order REFLEXED
[2018-04-07] MEDS ORDERED: ACETAMINOPHEN 500 MG TAB PO PRN (19:45)
[2018-04-07] MEDS ORDERED: ONDANSETRON 4 MG/2 ML VIAL IV PRN (19:45)
[2018-04-07] MEDS: INSULIN -REGULAR HUMAN 50 UNIT/0.5 ML ML SQ SCH (21:00)
[2018-04-08] MEDS: Meropenem 1,000 MG in NA CHLORIDE 0.9% 100 ML IV SCH ×3 (01:00→20:55)
[2018-04-08] MEDS ORDERED: Meropenem 1000 MG/VIAL IV SCH (01:00)
[2018-04-08] MEDS: NA CHLORIDE 0.9% 1,000 ML IV SCH ×3 (01:28→22:45)
[2018-04-08] MEDS ORDERED: Meropenem 1 GM/100 ML BAG ONE (01:31)
[2018-04-08 05:13] LABS: Absolute Monocytes 1.7 K/uL (0.1-1.3); Absolute Neutrophil 32.3 K/uL (1.8-8.0); Basophils % 0.3 % (0-1.3); Hematocrit 30.5 % (36.0-45.0); Lymphocytes % 5.6 % (15.3-44.8); MPV 7.7 fL (7.6-11.3); Monocytes % 4.8 % (3.3-12.3); RBC Red Blood Cell Count 3.16 M/uL (3.86-4.86)
[2018-04-08 05:31] LABS: Albumin 2.8 g/dL (3.4-5.0); Bilirubin Total 0.4 mg/dL (0.2-1.0); Magnesium 2.1 mg/dL (1.8-2.4); Phosphorus 2.6 mg/dL (2.5-4.9); Protein, Total 7.1 g/dL (6.4-8.2)
[2018-04-08 05:34] LABS: Potassium 2.9 mmol/L (3.5-5.1)
--- NOTE | 2018-04-08 05:52 | EKG ---
Test Date: 2018-04-07 Test Time: 17:19:51 Educational Sign Language Interpreter: ELODIA MEASUREMENT RESULTS: Intervals: Rate: 80 ID: [id number] QRSD: 84 QT: 410 QTc: 472 [place]: P: 10 ID: [id number] QRS: -19 T: -25 INTERPRETIVE STATEMENTS: Normal sinus rhythm Nonspecific T wave abnormality Abnormal ECG Compared to ECG 03/11/2017 00:40:32 T-wave abnormality now present Left-axis deviation no longer present Electronically Signed On 04-08-18 05:51:22 SHOPPING INVESTIGATOR by Micheal Lama
[2018-04-08] MEDS: KCL 20 MEQ/100 mL IVPB 20 MEQ/100 ML BAG IV SCH ×3 (06:30→19:53)
[2018-04-08] MEDS: INSULIN -REGULAR HUMAN 50 UNIT/0.5 ML ML SQ SCH ×4 (07:30→20:59)
[2018-04-08] MEDS ORDERED: TOLTERODINE TARTRATE PO SCH (09:00)
[2018-04-08] MEDS ORDERED: HOME MED 1 EA UNK (Escitalopram Oxalate [Lexapro] 5 MG) PO SCH (09:00)
[2018-04-08] MEDS ORDERED: LEVETIRACETAM 750 MG PO SCH ×2 (09:00→21:00)
[2018-04-08] MEDS: ALLOPURINOL 100 MG TAB PO SCH (09:04)
[2018-04-08] MEDS: ATENOLOL 50 MG TAB PO SCH (09:04)
[2018-04-08] MEDS: lamoTRIgine 150 MG TAB PO SCH ×2 (09:09→20:56)
--- NOTE | 2018-04-08 09:29 | P.HP ---
Certification for Inpatient Patient admitted to: Inpatient With expected LOS: >2 Midnights Patient will require the following post-hospital care: None Practitioner: I am a practitioner with admitting privileges, knowledge of patient current condition, hospital course, and medical plan of care. Services: Services provided to patient in accordance with Admission requirements found in Title 42 Section 412.3 of the Code of Federal Regulations Patient History Date of Service: 04/07/18 Reason for admission: Sepsis History of Present Illness: Patient is a 70-year-old who came to the hospital with altered mental status. Patient has been having confusion for the last 24 hr. patient was found have a UTI with encephalopathy. Patient was admitted to the hospital for further workup. Patient was started on IV Merrem. Patient was also given IV fluids. Patient is hemodynamically stable at this time. Will continue to monitor patient closely. Patient will be admitted to the hospital for further workup. Allergies Penicillins Allergy (Verified 11/08/14 16:44) UNKNOWN Home Medications: Allopurinol 2 tab PO DAILY 04/08/18 Amlodipine Besylate 1 tab PO DAILY 04/08/18 Atenolol 1 tab PO DAILY 04/08/18 Escitalopram Oxalate [Lexapro] 5 mg PO DAILY 04/08/18 Furosemide 1.5 tab PO DAILY 04/08/18 Levetiracetam [Keppra] 0.5 tab PO BEDTIME 04/08/18 Levetiracetam [Keppra] 750 mg PO DAILY 04/08/18 Losartan Potassium 50 mg PO BEDTIME 04/08/18 Tolterodine Tartrate [Detrol] 1 tab PO BID 04/08/18 Warfarin Sodium 2 tab PO DAILY 04/08/18 lamoTRIgine [Lamotrigine] 1 tab PO BID 04/08/18 risperiDONE [Risperidone] 1 tab PO BEDTIME 04/08/18 - Past Medical/Surgical History Has patient received pneumonia vaccine in the past: Yes Diabetic: No -: HTN -: Chronic kidney disease -: Coronary disease with previous stent -: Asthma -: Allergies -: Seizure disorder -: History of DVT -: cardiac stents Psychosocial/ Personal History: She is a , has 14 children, she lives at home. Family takes care of her. - Family History Mother Medical History: Diabetes Brother Medical History: Seizures - Social History Smoking Status: Never smoker Alcohol use: No CD- Drugs: No Caffeine use: Yes Place of Residence: Home Review of Systems 10-point ROS is otherwise unremarkable Physical Examination - Vital Signs Temperature: 98.4 F Blood Pressure: 125/54 Pulse: 80 Respirations: 24 Pulse Ox (%): 97 - Physical Exam General: Alert, In no apparent distress, Oriented x2 HEENT: Atraumatic, Normocephalic, PERRLA, Mucous membr. moist/pink Neck: Supple, 2+ carotid pulse no bruit, JVD not distended Respiratory: Clear to auscultation bilaterally, Normal air movement Cardiovascular: Normal S1 S2, No rubs, No murmurs Gastrointestinal: Normal bowel sounds, Hypoactive, Soft and benign, Non- distended Musculoskeletal: No clubbing, No swelling Integumentary: No rashes Neurological: Normal speech, Normal strength at 5/5 x4 extr, Normal tone, Sensation intact, Cranial nerves 3-12 intact, Abnormal gait Lymphatics: No axilla or inguinal lymphadenopathy - Studies Laboratory Data (last 24 hrs) 04/07/18 17:15: PT 23.8 H, INR 2.00, APTT 39.6 H 04/07/18 17:15: WBC 30.5 H*, Hgb 10.7 L, Hct 33.7 L, Plt Count 246 04/07/18 17:15: Sodium 139, Potassium 3.0 L, BUN 12, Creatinine 1.28, Glucose 118 H, Total Bilirubin 0.4, AST 14 L, ALT 16, Alkaline Phosphatase 99, Lipase 73 Assessment & Plan - Problems (Diagnosis) (1) Sepsis Current Visit: Yes Status: Acute (2) Hypokalemia Current Visit: No Status: Acute (3) Seizure disorder Onset Date: 03/11/17 Current Visit: No Status: Acute (4) UTI (urinary tract infection) Onset Date: 03/11/17 Current Visit: No Status: Acute Qualifiers: Urinary tract infection type: site unspecified Hematuria presence: without hematuria Qualified Code(s): N39.0 - Urinary tract infection, site not specified (5) CAD (coronary artery disease) Onset Date: 03/11/17 Current Visit: No Status: Chronic (6) Hypertension Onset Date: 03/11/17 Current Visit: No Status: Chronic Qualifiers: - Plan Plan: 1. IV fluids and IV antibiotics 2. Monitor vital signs closely 3. procalcitonin level & lactate 4. monitor renal function and chemistries closely 5. GI and DVT prophylaxis Discharge Plan: Home Plan to discharge in: 72 Hours - Advance Directives Does patient have a Living Will: Yes Does patient have a Durable POA for Healthcare: Yes - Code Status/Comfort Care Code Status Assessed: Yes Code Status: Full Code Critical Care: No Time Spent Managing PTS Care (In Minutes): 55
[2018-04-08] MEDS ORDERED: VANCOMYCIN 1.25 GM in NA CHLORIDE 0.9% 250 ML IVPB SCH (12:00)
[2018-04-08] MEDS: ESCITALOPRAM OXALATE 5 MG PO SCH (12:06)
[2018-04-08] MEDS: LEVETIRACETAM 750 MG PO SCH (12:06)
[2018-04-08] MEDS ORDERED: WARFARIN SODIUM 1 MG TAB PO SCH (13:00)
[2018-04-08] MEDS: VANCOMYCIN 1.5 GM in NA CHLORIDE 0.9% 500 ML IVPB SCH (13:29)
[2018-04-08] MEDS: WARFARIN SODIUM 2 MG TAB PO SCH (13:29)
--- NOTE | 2018-04-08 13:33 | RAD REPORT ---
EXAM DESCRIPTION: CT - Thorax Wo Con - 04/08/2018 1:16 pm CLINICAL HISTORY: Lung mass COMPARISON: April 07, 2018 chest x-ray TECHNIQUE: Computed axial tomography of the chest was obtained. Contrast was not requested. All CT scans are performed using dose optimization technique as appropriate and may include automated exposure control or mA/KV adjustment according to patient size. FINDINGS: The evaluation of mediastinum, merly and vessels is limited secondary to lack of IV contras t administration. 7.5 centimeter consolidation is present within the posterior right upper lobe. The left lung is clear. No mediastinal or hilar lymphadenopathy is seen. A pleural effusion is not present. A pericardial effusion is not noted. A small left diaphragmatic hernia contains fat Multiple gallstones are present without gallbladder wall thickening A 2.1 centimeter nonspecific low-density right renal mass is noted 2 centimeter nodule is suspected within the lower pole left lobe the thyroid gland IMPRESSION: 7.5 centimeter consolidation within the right upper lobe likely represents pneumonia. Th is should be followed until it is clear to exclude a post obstructive process/underlying mass 2 centimeter nodule is suspected within the lower pole left lobe the thyroid gland. Ultrasound is rec ommended
[2018-04-08] MEDS ORDERED: D50W 25 GM/50 ML SYRINGE IV PRN (15:58)
[2018-04-08] MEDS ORDERED: GLUCAGON 1 MG/VIAL IM PRN (15:58)
--- NOTE | 2018-04-08 17:02 | P.PN ---
Subjective Date of Service: 04/08/18 Chief Complaint: Sepsis Subjective: No new changes, No C/O voiced, Worsening, Doing well Review of Systems 10-point ROS is otherwise unremarkable Physical Examination - Vital Signs Temperature: 98.4 F Blood Pressure: 101/43 Pulse: 73 Respirations: 25 Pulse Ox (%): 97 - Physical Exam General: Alert, In no apparent distress HEENT: Atraumatic, PERRLA, EOMI Neck: Supple, JVD not distended Respiratory: Normal air movement, Crackles/rales, Expiratory wheezes, Inspiratory wheezes Cardiovascular: Regular rate/rhythm, Normal S1 S2 Gastrointestinal: Normal bowel sounds, No tenderness Musculoskeletal: No tenderness Integumentary: No rashes Neurological: Normal speech, Normal tone, Normal affect Lymphatics: No axilla or inguinal lymphadenopathy - Studies Laboratory Data (last 24 hrs) 04/07/18 17:15: PT 23.8 H, INR 2.00, APTT 39.6 H 04/07/18 17:15: WBC 30.5 H*, Hgb 10.7 L, Hct 33.7 L, Plt Count 246 04/07/18 17:15: Sodium 139, Potassium 3.0 L, BUN 12, Creatinine 1.28, Glucose 118 H, Total Bilirubin 0.4, AST 14 L, ALT 16, Alkaline Phosphatase 99, Lipase 73 Medications List Reviewed: Yes Assessment And Plan - Current Problems (Diagnosis) (1) Sepsis Onset Date: 04/08/18 Current Visit: Yes Status: Acute Plan: Most likely secondary to UTI verses pneumonia. Elevated white count and pro calcitonin at this -currently on IV meropenem will add vancomycin at this time -will get chest CT to assess for pneumonia versus mass -blood culture, urine culture, sputum culture pending at this time -will consult pulmonology depending on the results of the chest CT. Qualifiers: Sepsis type: sepsis due to unspecified organism Qualified Code(s): A41.9 - Sepsis, unspecified organism (2) UTI (urinary tract infection) Onset Date: 04/08/18 Current Visit: Yes Status: Acute Plan: UA consistent with UTI -urine culture positive for 4+ gram-negative rods -currently on IV meropenem. Added vancomycin at this time Qualifiers: Urinary tract infection type: acute cystitis Hematuria presence: without hematuria Qualified Code(s): N30.00 - Acute cystitis without hematuria (3) Seizure disorder Onset Date: 03/11/17 Current Visit: No Status: Chronic Plan: Patient with history of seizure disease. -Bertha restarted here -neurology consulted. Appreciated recommendations (4) CAD (coronary artery disease) Onset Date: 03/11/17 Current Visit: No Status: Chronic Qualifiers: Coronary Disease-Associated Artery/Lesion type: [place] artery [place] vs. transplanted heart: [place] heart Associated angina: without angina Qualified Code(s): I25.10 - Atherosclerotic heart disease of [place] coronary artery without angina pectoris (5) History of DVT (deep vein thrombosis) Onset Date: 03/11/17 Current Visit: No Status: Chronic (6) Hypertension Onset Date: 03/11/17 Current Visit: No Status: Chronic Qualifiers: Hypertension type: essential hypertension Discharge Plan: Other Plan to discharge in: Greater than 2 days - Code Status/Comfort Care Code Status Assessed: Yes Critical Care: No
[2018-04-08] MEDS ORDERED: LEVALBUTEROL 0.63 MG/3 ML NEB NEB PRN (17:16)
[2018-04-08] MEDS ORDERED: IPRATROPIUM BROM 0.5MG/2.5ML NEB PRN ×2 (17:39→20:00)
[2018-04-08 18:01] LABS: Absolute Lymphocytes (CBC) 1.9 K/uL (0.7-4.9); Absolute Monocytes 1.5 K/uL (0.1-1.3); Absolute Neutrophil 22.9 K/uL (1.8-8.0); Basophils % 0.4 % (0-1.3); Eosinophils % 0.2 % (0-4.4); Hematocrit 30.4 % (36.0-45.0); Lymphocytes % 7.3 % (15.3-44.8); MPV 7.6 fL (7.6-11.3); Monocytes % 5.7 % (3.3-12.3); RBC Red Blood Cell Count 3.16 M/uL (3.86-4.86)
[2018-04-08 19:40] LABS: Blood Morphology Comment NOT SEEN (NOT SEEN); Platelet Estimate ADEQ; Urine White Blood Cell Casts OK
[2018-04-08] MEDS ORDERED: KCL 20 MEQ/100 mL IVPB 20 MEQ/100 ML BAG IV ONE (19:57)
--- NOTE | 2018-04-08 20:34 | RAD REPORT ---
EXAM DESCRIPTION: US - Thyroid Para Parotid Gland - 04/08/2018 7:54 pm CLINICAL HISTORY: Thyroid mass, abnormal CT COMPARISON: CT study April 08 TECHNIQUE: Thyroid sonography performed. FINDINGS: Exam was limited. Patient had limited ability to cooperate with the examination. Isthmus is 7 mm in thickness. Right lobe is 4.8 x 2.4 x 2.7 cm. Left lobe is 4.1 x 2.5 x 2.3 cm. Erica ent has multiple solid and cystic nodules throughout the gland. There are numerous 5 mm or less solid or cystic nodules seen. In the superior right thyroid lobe there is a 15 millimeter thin-walled cyst . Left lobe shows a 14 millimeter cystic nodule in the superior margin. Additional 11 millimeter cyst present mid to superior left lobe. A solid 2 centimeter nodule is present in the inferior left lobe. This is the correlate to the CT finding. There is an adjacent 10 mm cyst. IMPRESSION: Multiple bilateral solid and cystic nodules within an overall enlarged gland. There is a dominant 2 centimeter nodule in the inferior left lobe. As clinical findings warrant, fine -needle aspiration could be performed at an appropriate time.
--- NOTE | 2018-04-08 20:36 | RAD REPORT ---
EXAM DESCRIPTION: US - Renal Ultrasound-Complete - 04/08/2018 7:56 pm CLINICAL HISTORY: Right renal mass, abnormal CT study COMPARISON: CT study April 08 FINDINGS: The right kidney measures 8.9 x 4.2 x 4.3 cm. The left kidney measures 8.9 x 4.3 x 4.8 cm . Cortical thickness is normal. Cortical echogenicity is increased. This could be parenchymal disease or body habitus artifact. Exam was limited by patient and mobility. No hydronephrosis. In the upper pole right kidney a 2.1 centimeter hypoechoic mass is present. This is probably a cyst but does not m eet strict criteria. Exam is technically limited. No bladder wall thickening or mass. No intraluminal stone or mass. IMPRESSION: Proximally 2.1 centimeter hypoechoic mass upper pole left kidney seen as a correlate to the CT finding. Right renal finding is most likely a cyst but does not meet strict criteria. Exam is limited by body habitus and patient mobility. Long-term significance of the finding is felt to be low. This can be mo nitored on follow-up imaging in 4-6 months or could be evaluated at a time when the patient may under go a contrast CT abdomen study. No other significant findings.
[2018-04-08] MEDS: LOSARTAN POTASSIUM 50 MG TABLET PO SCH (20:55)
[2018-04-08] MEDS: TOLTERODINE TARTRATE 2 MG PO SCH (20:56)
[2018-04-08] MEDS: RISPERIDONE 1 MG TABLET PO SCH (21:00)
[2018-04-08] MEDS ORDERED: levETIRAcetam 500 MG TAB ONE (22:25)
[2018-04-08] MEDS: levETIRAcetam 500 MG TAB PO SCH (22:45)
--- NOTE | 2018-04-09 01:28 | CON ---
Continuation: Past Medical History: History of seizure, prior stroke, and cardiac issues as alluded to. Medications: Anticonvulsant regimen as noted. She is on Coumadin. Should also be on sertraline 25; I do not think that is highly important currently. She is on risperidone here, that is not normally a chronic medication for her. Amlodipine is 2.5, atenolol 50, allopurinol 100, and normally on Lasi x 40 twice daily according to her medication list from the office. Allergies: PENICILLIN. Social History: She has a very attentive family. The patient needs assistance with advanced activit ies of daily living, although she is able to do basic activities of daily living independently. Family History: Noncontributory. Review of Systems: General: Acutely ill. Eyes: Denies. Ears, Nose, and Throat: No dysphagia. No dysarthria. Cardiovascular: As alluded to. Pulmonary: Probable pneumonia. Gastrointestinal: Negative. Genitourinary: Possible UTI. Musculoskeletal: Arthralgias and tremor, right upper extremity. Neurologic: As noted. Psychiatric: Negative. Endocrine: Negative, although has some slightly elevated blood glucose here. Hematologic: On Coumadin. Physical Examination: Vital Signs: On examination, temperature 98.4, heart rate 74, respiratory rate 24, and blood pressur e 130/52. General: Pleasant, slightly tachypneic, elderly lady, in no distress. Heart: Sinus rhythm presently. She does have some coarse breath sounds, right upper lobe. Psychiatric: She is awake, alert, and oriented; recognizes me; knows she is in the hospital. HEENT/Neurologic/Extremities: Pupils are equal, round, and reactive. Ocular motion is full. Rodriguez are full. Facial strength and sensation are normal. Tongue protrudes evenly. Soft palate elevates symmetrically bilaterally. Examination of her extremities reveals mild drift and dyspraxia on the r ight with mild intermittent resting tremor on the right as well without cogwheeling or rigidity or br adykinesia. Sensation is intact. Reflexes are 1+ for right toe upgoing. Cerebellar examination dem onstrates no ataxia. Pertinent Laboratory Data: White count as noted, hemoglobin 9.6. INR 2. Creatinine normal. Procal citonin 0.93. CT scan chest; 7.5-cm consolidation, right upper lobe. 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 Plan: We will continue Lamictal 150 twice daily. I would, at this juncture, make the Keppra 750 in the morning and 500 in the evening, and that can be titrated back down on discharge. Thank you for the consult. I will actually be out of town Thursday and Thursday for CME meeting, but w ill be available should the patient's clinical condition change significantly. Thank you for the consult. We will continue to follow. TENZIN Voice ID: [id number] Report ID: [id number]
--- NOTE | 2018-04-09 01:37 | CON ---
Date of Consultation: 04/08/2018 Reason For Consultation: Seizures, prior stroke. History Of Present Illness: An 87-year-old lady, known to myself, history of poststroke epilepsy, pr ior left MCA distribution stroke, fairly good recovery, but left with resultant seizures that have be en difficult to control. Historically, she goes in the complex partial status fairly readily. Diffi culties with sedation on high-dose Keppra. So, we have been titrating Lamictal up slowly over about the last 6 months. More recently, issues with just elevated Keppra level on a 750 b.i.d. dosing. So , she is on 750 in the morning and then a half tab in the evening of the Keppra. Keppra level in the 40s on that dosing regimen. She was in the office fairly recently. The family has been noting some intermittent rhythmic tremor, right upper extremity, with some brief alteration in consciousness, a little concerning for partial seizure, although the tremor proper has slight rhythmic component that is somewhat reminiscent of Parkinson's as well, but it is improved on the increased dose of Lamictal. She was on Xarelto, but is now on Coumadin as the Xarelto is cost prohibitive, while family brought her to the hospital because they found her to be confused. She has had issues with highly fluctuati ng INRs and has a history of paroxysmal atrial fibrillation. Evaluation in the emergency department revealed findings consistent with sepsis with a white count of 30,000, and an elevated procalcitonin and infiltrate on the chest x-ray. So, she is admitted to the ICU. White count was actually up to 3 6,000, this morning. It is down to 24,000, today. The patient clinically seems better with a questi on of a brief seizure while in the emergency department as well. CT scan negative for any acute villalta ges. She was given 1000 mg of Keppra IV in the ER. DICTATION ENDS HERE. GLEN/ALEXX Voice ID: [id number] Report ID: [id number]
[2018-04-09] MEDS: NA CHLORIDE 0.9% 1,000 ML IV SCH (01:45)
[2018-04-09] MEDS ORDERED: POTASSIUM 25 MEQ EFFERV TAB PO ONE (02:08)
[2018-04-09 05:32] LABS: Absolute Lymphocytes (CBC) 2.8 K/uL (0.7-4.9); Absolute Monocytes 1.2 K/uL (0.1-1.3); Absolute Neutrophil 15.9 K/uL (1.8-8.0); Basophils % 0.4 % (0-1.3); Eosinophils % 0.3 % (0-4.4); Hematocrit 30.2 % (36.0-45.0); Lymphocytes % 14.1 % (15.3-44.8); MPV 7.6 fL (7.6-11.3); Monocytes % 5.8 % (3.3-12.3); RBC Red Blood Cell Count 3.14 M/uL (3.86-4.86)
[2018-04-09 05:34] LABS: Protime INR 2.48
[2018-04-09 05:59] VITALS: BMI 33.7
[2018-04-09 06:01] LABS: Albumin 2.7 g/dL (3.4-5.0); Bilirubin Total 0.4 mg/dL (0.2-1.0); Magnesium 2.1 mg/dL (1.8-2.4); Phosphorus 1.7 mg/dL (2.5-4.9); Potassium 4.1 mmol/L (3.5-5.1); Protein, Total 6.9 g/dL (6.4-8.2); T4,Total 12.1 ug/dL (4.8-13.9); Thyroid Stimulating Hormone 1.25 uIU/mL (0.360-3.740)
[2018-04-09] MEDS ORDERED: POTASSIUM PHOS IN 0.9 % NACL 15 MMOL/250 ML BAG IV ONE (07:00)
[2018-04-09] MEDS: INSULIN -REGULAR HUMAN 50 UNIT/0.5 ML ML SQ SCH ×4 (07:30→20:33)
[2018-04-09] MEDS: ATENOLOL 50 MG TAB PO SCH (08:36)
[2018-04-09] MEDS: Meropenem 1,000 MG in NA CHLORIDE 0.9% 100 ML IV SCH (08:36)
[2018-04-09] MEDS: ALLOPURINOL 100 MG TAB PO SCH (08:37)
[2018-04-09] MEDS: TOLTERODINE TARTRATE 2 MG PO SCH ×2 (08:37→20:24)
[2018-04-09] MEDS: ESCITALOPRAM OXALATE 5 MG PO SCH (08:38)
[2018-04-09] MEDS: lamoTRIgine 150 MG TAB PO SCH ×2 (08:39→20:32)
[2018-04-09] MEDS: LEVETIRACETAM 750 MG PO SCH (08:40)
[2018-04-09] MEDS ORDERED: LEVETIRACETAM 750 MG PO SCH (09:00)
--- NOTE | 2018-04-09 10:50 | P.CNS ---
Date of Consult: 04/09/18 Chief Complaint: Sepsis History of Present Illness: Patient is 87 years of age admitted with acute onset of cough fever duct tape sputum some chest discomfort admitted with a diagnosis of right upper lobe pneumonia no prior history of pulmonary complaints patient has never smoked she does have a history of coronary artery disease status post stent placement patient is ambulatory at home found to have an elevated white count white count is declining she is high risk for resistant organisms patient is anti coagulated history of DVT on warfarin Allergies Penicillins Allergy (Verified 11/08/14 16:44) UNKNOWN Home Medications: Allopurinol 2 tab PO DAILY 04/08/18 Amlodipine Besylate 1 tab PO DAILY 04/08/18 Atenolol 1 tab PO DAILY 04/08/18 Escitalopram Oxalate [Lexapro] 5 mg PO DAILY 04/08/18 Furosemide 1.5 tab PO DAILY 04/08/18 Levetiracetam [Keppra] 0.5 tab PO BEDTIME 04/08/18 Levetiracetam [Keppra] 750 mg PO DAILY 04/08/18 Losartan Potassium 50 mg PO BEDTIME 04/08/18 Tolterodine Tartrate [Detrol] 1 tab PO BID 04/08/18 Warfarin Sodium 2 tab PO DAILY 04/08/18 lamoTRIgine [Lamotrigine] 1 tab PO BID 04/08/18 risperiDONE [Risperidone] 1 tab PO BEDTIME 04/08/18 - Past Medical/Surgical History Diabetic: No -: HTN -: Chronic kidney disease -: Coronary disease with previous stent -: Asthma -: Allergies -: Seizure disorder -: History of DVT -: cardiac stents Psychosocial/ Personal History: She is a , has 14 children, she lives at home. Family takes care of her. - Family History Mother Medical History: Diabetes Brother Medical History: Seizures - Social History Smoking Status: Unknown if ever smoked Alcohol use: No CD- Drugs: No Caffeine use: Yes Place of Residence: Home Review of Systems General: Weakness Respiratory: Cough, Shortness of Breath Physical Examination Temp Pulse Resp BP Pulse Ox 99.4 F 75 25 H 138/58 L 98 04/09/18 04:00 04/09/18 10:00 04/09/18 10:00 04/09/18 10:00 04/09/18 10:00 General: Alert, Oriented x3 HEENT: Atraumatic Neck: Supple Respiratory: Crackles/rales (Some crackles in the right upper zone) Cardiovascular: No edema, Normal S1 S2 Gastrointestinal: Normal bowel sounds, Soft and benign - Problems (1) Pneumonia Current Visit: Yes Status: Acute Plan: Patient is 87 years of age admitted with a right upper lobe pneumonia continue with present antibiotics until her white count is normal so far blood cultures are negative sputum cultures are pending patient is unable to cough up any sputum is currently on vancomycin and Augmentin vital signs are stable oxygenation satisfactory patient also has a multinodular goiter with a solid lesion in 1 of lower lobes the TH is very elevated I have ordered a serum pro calcitonin level he probably going to need a biopsy of the nodule as an outpatient stable to be transferred to the floor Qualifiers: Pneumonia type: due to unspecified organism Laterality: right
[2018-04-09] MEDS: WARFARIN SODIUM 2 MG TAB PO SCH (12:46)
--- NOTE | 2018-04-09 13:01 | P.PN ---
Subjective Date of Service: 04/09/18 Chief Complaint: Sepsis Review of Systems 10-point ROS is otherwise unremarkable Physical Examination - Vital Signs Temperature: 97.4 F Blood Pressure: 139/57 Pulse: 77 Respirations: 17 Pulse Ox (%): 100 - Physical Exam General: Alert, In no apparent distress HEENT: Atraumatic, PERRLA, EOMI Neck: Supple, JVD not distended Respiratory: Normal air movement, Crackles/rales, Expiratory wheezes, Inspiratory wheezes Cardiovascular: Regular rate/rhythm, Normal S1 S2 Gastrointestinal: Normal bowel sounds, No tenderness Musculoskeletal: No tenderness Integumentary: No rashes Neurological: Normal speech, Normal tone, Normal affect Lymphatics: No axilla or inguinal lymphadenopathy - Studies Microbiology Data (last 24 hrs): 04/07/18 18:17 Clean Catch Urine [place] Count - Final >100,000 CFU/ML. 04/07/18 18:17 Clean Catch Urine - Final Escherichia Coli Medications List Reviewed: Yes Assessment And Plan - Current Problems (Diagnosis) (1) Sepsis Onset Date: 04/08/18 Current Visit: Yes Status: Acute Plan: Most likely secondary to UTI verses pneumonia. Elevated white count and pro calcitonin at this -On IV Vancomycin for PNA (Possible MRSA) and Switched to Augmentin for ECOLI UTI -urine Culture + for ECOLI and Blood culture pending along with Sputum culture Qualifiers: Sepsis type: sepsis due to unspecified organism Qualified Code(s): A41.9 - Sepsis, unspecified organism (2) UTI (urinary tract infection) Onset Date: 04/08/18 Current Visit: Yes Status: Acute Plan: UA consistent with UTI -urine culture positive for Ecoli -currently on switced to PO augmentin Qualifiers: Urinary tract infection type: acute cystitis Hematuria presence: without hematuria Qualified Code(s): N30.00 - Acute cystitis without hematuria (3) Thyroid nodule Current Visit: Yes Status: Acute Plan: CT chest with thyroid nodule, along with renal nodule and questionable lung nodule vs PNA -US of the thyroid with Left lobe nodule -TSH WNL with high suspicious of Cold nodule. Reccs Fine Needle Aspiration -Renal US with Hypogenic Mass repeat CT recc in 3 to 4 months -PTH is also elevated with Low CA most likely GI malabsorption vs nodule. (4) Seizure disorder Onset Date: 03/11/17 Current Visit: No Status: Chronic Plan: Patient with history of seizure disease. -Bertha restarted here -neurology consulted. Appreciated recommendations (5) CAD (coronary artery disease) Onset Date: 03/11/17 Current Visit: No Status: Chronic Qualifiers: Coronary Disease-Associated Artery/Lesion type: [place] artery [place] vs. transplanted heart: [place] heart Associated angina: without angina Qualified Code(s): I25.10 - Atherosclerotic heart disease of [place] coronary artery without angina pectoris (6) History of DVT (deep vein thrombosis) Onset Date: 03/11/17 Current Visit: No Status: Chronic (7) Hypertension Onset Date: 03/11/17 Current Visit: No Status: Chronic Qualifiers: Hypertension type: essential hypertension Discharge Plan: Home Plan to discharge in: Greater than 2 days - Code Status/Comfort Care Code Status Assessed: Yes Critical Care: Yes
[2018-04-09] MEDS: LOSARTAN POTASSIUM 50 MG TABLET PO SCH (20:26)
[2018-04-09] MEDS: AMOX/K CLAV 875 MG TAB PO SCH (20:26)
[2018-04-09] MEDS: levETIRAcetam 500 MG TAB PO SCH (20:26)
[2018-04-09] MEDS: RISPERIDONE 1 MG TABLET PO SCH (20:32)
[2018-04-10] MEDS: VANCOMYCIN 1.5 GM in NA CHLORIDE 0.9% 500 ML IVPB SCH (00:37)
[2018-04-10 05:39] LABS: Absolute Lymphocytes (CBC) 1.3 K/uL (0.7-4.9); Absolute Monocytes 0.6 K/uL (0.1-1.3); Basophils % 0.7 % (0-1.3); Eosinophils % 0.8 % (0-4.4); Hematocrit 31.9 % (36.0-45.0); Lymphocytes % 9.6 % (15.3-44.8); Monocytes % 4.5 % (3.3-12.3); RBC Red Blood Cell Count 3.34 M/uL (3.86-4.86)
[2018-04-10 06:01] LABS: Protime INR 1.73
[2018-04-10 06:06] LABS: Albumin 2.6 g/dL (3.4-5.0); Bilirubin Total 0.3 mg/dL (0.2-1.0); Magnesium 2.3 mg/dL (1.8-2.4); Phosphorus 2.2 mg/dL (2.5-4.9); Potassium 3.5 mmol/L (3.5-5.1); Protein, Total 7.1 g/dL (6.4-8.2)
[2018-04-10] MEDS: INSULIN -REGULAR HUMAN 50 UNIT/0.5 ML ML SQ SCH ×2 (07:30→11:30)
[2018-04-10] MEDS ORDERED: POTASSIUM PHOS IN 0.9 % NACL 15 MMOL/250 ML BAG IV ONE (09:00)
[2018-04-10] MEDS: TOLTERODINE TARTRATE 2 MG PO SCH (10:10)
[2018-04-10] MEDS: LEVETIRACETAM 750 MG PO SCH (10:11)
[2018-04-10] MEDS: ESCITALOPRAM OXALATE 5 MG PO SCH (10:12)
[2018-04-10] MEDS: lamoTRIgine 150 MG TAB PO SCH (10:13)
[2018-04-10] MEDS: AMOX/K CLAV 875 MG TAB PO SCH (10:13)
[2018-04-10] MEDS: ATENOLOL 50 MG TAB PO SCH (10:14)
[2018-04-10] MEDS: ALLOPURINOL 100 MG TAB PO SCH (10:14)
--- NOTE | 2018-04-10 10:23 | P.PN ---
Subjective Date of Service: 04/10/18 Chief Complaint: Pneumonia Subjective: Improving (Patient is doing much better wants to go home denies any cough sputum hemoptysis fever chills) Review of Systems Unremarkable Physical Examination - Vital Signs Temperature: 97.3 F Blood Pressure: 148/67 Pulse: 81 Respirations: 18 Pulse Ox (%): 95 - Physical Exam General: Alert, In no apparent distress, Oriented x3 Respiratory: Clear to auscultation bilaterally Cardiovascular: No edema, Regular rate/rhythm - Studies Microbiology Data (last 24 hrs): 04/07/18 18:17 Clean Catch Urine [place] Count - Final >100,000 CFU/ML. 04/07/18 18:17 Clean Catch Urine - Final Escherichia Coli Medications List Reviewed: Yes Assessment & Plan - Problems (Diagnosis) (1) Pneumonia Current Visit: Yes Status: Acute Plan: Patient is 87 years of age admitted with right upper lobe pneumonia doing much better white count has declined significantly patient can be discharged home on a combination of Augmentin and doxycycline follow up with me in a couple of weeks and show that her chest x-rays cleared up title signs are stable oxygenation stable Qualifiers: Pneumonia type: due to unspecified organism Laterality: right
--- NOTE | 2018-04-10 11:27 | P.DS ---
Admission Date: 04/07/18 Discharge Date: 04/10/18 Disposition: ROUTINE DISCHARGE Discharge Condition: GOOD Reason for Admission: Pneumonia Consultations: Pulmonology - Problems (1) Sepsis Onset Date: 04/08/18 Current Visit: Yes Status: Acute Qualifiers: Sepsis type: sepsis due to unspecified organism Qualified Code(s): A41.9 - Sepsis, unspecified organism (2) UTI (urinary tract infection) Onset Date: 04/08/18 Current Visit: Yes Status: Acute Qualifiers: Urinary tract infection type: acute cystitis Hematuria presence: without hematuria Qualified Code(s): N30.00 - Acute cystitis without hematuria (3) Thyroid nodule Current Visit: Yes Status: Acute (4) Seizure disorder Onset Date: 03/11/17 Current Visit: No Status: Chronic (5) CAD (coronary artery disease) Onset Date: 03/11/17 Current Visit: No Status: Chronic Qualifiers: Coronary Disease-Associated Artery/Lesion type: [place] artery [place] vs. transplanted heart: [place] heart Associated angina: without angina Qualified Code(s): I25.10 - Atherosclerotic heart disease of [place] coronary artery without angina pectoris (6) History of DVT (deep vein thrombosis) Onset Date: 03/11/17 Current Visit: No Status: Chronic (7) Hypertension Onset Date: 03/11/17 Current Visit: No Status: Chronic Qualifiers: Hypertension type: essential hypertension Qualified Code(s): I10 - Essential (primary) hypertension Brief History of Present Illness: Patient is a 70-year-old who came to the hospital with altered mental status. Patient has been having confusion for the last 24 hr. patient was found have a UTI with encephalopathy. Patient was admitted to the hospital for further workup. Patient was started on IV Merrem. Patient was also given IV fluids. Patient is hemodynamically stable at this time. Will continue to monitor patient closely. Patient will be admitted to the hospital for further workup. Hospital Course: Overall during the hospital stay patient remained stable Patient was initially admitted to the hospital for sepsis most likely secondary to UTI and pneumonia. Patient were presented to the ER with Hypertensin fever and toxic metabolic encephalopathy. Patient was found to have urinary tract infection on UA. Initially patient was started on IV meropenem and vancomycin was added due to white blood count not getting better. Patient had marked improvement after the addition of vancomycin. Urine culture eventually grew pansensitive E. coli and this patient was switched over to Augmentin. Patient was continued on IV vancomycin for pneumonia her white count did improve markedly in next 24-48 hr and thus was switched over to doxycycline. Over the course of the hospital stay patient had marked improvement in her symptoms and was hemodynamically stable and thus was transferred to the regular floor. Patient in the regular floor worked with physical therapy was able to ambulate and tolerate her diet well and wanted to go home and thus was discharged home under stable condition. Patient was given prescription for Augmentin and doxycycline to be taken for total of 14 days. Blood cultures remained negative while here in the hospital. Sputum culture was sent collected as patient did not have any sputum production. While here in the hospital patient had imaging study done which was consistent with thyroid nodule along with renal nodule and chest CT which was consistent with pneumonia versus lung nodule. Pulmonology was consulted who thought that patient's lung findings are most likely pneumonia related rather than lung nodule. Patient had thyroid ultrasound done to evaluate for thyroid nodule and TSH was within normal limits. Patient's thyroid ultrasound comes consistent with multinodular gland with left lower lobe thyroid nodule. The detailed discussion was done with family member and patient at bedside who wanted to followup outpatient with the primary care doctor and pursue the workup of thyroid nodule outpatient. Patient did not have any symptoms at this time and thus was discharged and was asked to follow up with oncology in about 1-2 days post discharge along with a primary care doctor. Patient demonstrated understanding and thus was discharged home under stable condition Vital Signs/Physical Exam: Temp Pulse Resp BP Pulse Ox 97.3 F 81 18 148/67 H 95 04/10/18 10:23 04/10/18 10:23 04/10/18 10:23 04/10/18 10:23 04/10/18 10:23 General: Alert, In no apparent distress HEENT: Atraumatic, PERRLA, EOMI Neck: Supple, JVD not distended Respiratory: Clear to auscultation bilaterally, Normal air movement Cardiovascular: Regular rate/rhythm, Normal S1 S2 Gastrointestinal: Normal bowel sounds, No tenderness Musculoskeletal: No tenderness Integumentary: No rashes Neurological: Normal speech, Normal tone, Normal affect Lymphatics: No axilla or inguinal lymphadenopathy Laboratory Data at Discharge: WBC 13.0 K/uL (4.3-10.9) H D 04/10/18 04:55 Hgb 10.1 g/dL (12.0-15.0) L 04/10/18 04:55 Hct 31.9 % (36.0-45.0) L 04/10/18 04:55 Plt Count 209 K/uL (152-406) 04/10/18 04:55 PT 20.5 SECONDS (9.5-12.5) H 04/10/18 04:55 INR 1.73 04/10/18 04:55 APTT 39.6 SECONDS (24.3-36.9) H 04/07/18 17:15 Sodium 142 mmol/L (136-145) 04/10/18 04:55 Potassium 3.5 mmol/L (3.5-5.1) 04/10/18 04:55 BUN 10 mg/dL (7-18) 04/10/18 04:55 Creatinine 0.84 mg/dL (0.55-1.3) 04/10/18 04:55 Glucose 89 mg/dL (74-106) 04/10/18 04:55 Phosphorus 2.2 mg/dL (2.5-4.9) L 04/10/18 04:55 Magnesium 2.3 mg/dL (1.8-2.4) 04/10/18 04:55 Total Bilirubin 0.3 mg/dL (0.2-1.0) 04/10/18 04:55 AST 26 U/L (15-37) 04/10/18 04:55 ALT 17 U/L (12-78) 04/10/18 04:55 Alkaline Phosphatase 88 U/L (45-117) 04/10/18 04:55 Lipase 73 U/L (73-393) 04/07/18 17:15 Home Medications: Allopurinol 2 tab PO DAILY 04/08/18 Amlodipine Besylate 1 tab PO DAILY 04/08/18 Atenolol 1 tab PO DAILY 04/08/18 Escitalopram Oxalate [Lexapro] 5 mg PO DAILY 04/08/18 Furosemide 1.5 tab PO DAILY 04/08/18 Levetiracetam [Keppra] 0.5 tab PO BEDTIME 04/08/18 Levetiracetam [Keppra] 750 mg PO DAILY 04/08/18 Losartan Potassium 50 mg PO BEDTIME 04/08/18 Tolterodine Tartrate [Detrol] 1 tab PO BID 04/08/18 Warfarin Sodium 2 tab PO DAILY 04/08/18 lamoTRIgine [Lamotrigine] 1 tab PO BID 04/08/18 risperiDONE [Risperidone] 1 tab PO BEDTIME 04/08/18 Amox/Clavulanate [Augmentin 875-125 Tab*] 875 mg PO BID #28 tab 04/10/18 Doxycycline Hyclate 100 mg PO BID #28 capsule 04/10/18 New Medications: Amox/Clavulanate [Augmentin 875-125 Tab*] 875 mg PO BID #28 tab Doxycycline Hyclate 100 mg PO BID #28 capsule Patient Discharge Instructions: Please f.u with PCP and Pulmonology 1 to 2 week post discharge. New medication. Augmentin and doxycycline for 14 days for UTI and PNA Diet: Regular Activity: Ad dennise Followup: Michele Ahuja MD [ACTIVE - CAN ADMIT] - 1 Week
[2018-04-10 13:20] VITALS: O2SAT 92
[2018-04-10] MEDS: WARFARIN SODIUM 2 MG TAB PO SCH (13:27)
[2018-04-10 15:25] VITALS: BP 138/65; TEMP 97.8
[2018-04-11] MEDS ORDERED: VANCOMYCIN 1.5 GM in NA CHLORIDE 0.9% 500 ML IVPB SCH ×2
== END 2018-04-10 15:11 | disposition home or self-care (01) | DRG 871 ==
LOC: ER 16:47 → ERHOLD 18:32 → 3RD-ICU 19:48 → 2ND 04-09 14:30
PROVIDERS: ADMIT Family Medicine; ATTEND Family Medicine
DX: A41.9 Sepsis, unspecified organism (principal); G92 Toxic encephalopathy; J18.9 Pneumonia, unspecified organism; N30.00 Acute cystitis without hematuria; E04.1 Nontoxic single thyroid nodule; G40.909 Epilepsy, unspecified, not intractable, without status epilepticus; I25.10 Atherosclerotic heart disease of native coronary artery without angina pectoris; Z86.718 Personal history of other venous thrombosis and embolism; B96.20 Unspecified Escherichia coli [E. coli] as the cause of diseases classified elsewhere; Z88.0 Allergy status to penicillin; Z79.01 Long term (current) use of anticoagulants; Z95.5 Presence of coronary angioplasty implant and graft; E87.6 Hypokalemia; Z86.73 Personal history of transient ischemic attack (TIA), and cerebral infarction without residual deficits; N28.89 Other specified disorders of kidney and ureter; I12.9 Hypertensive chronic kidney disease with stage 1 through stage 4 chronic kidney disease, or unspecified chronic kidney disease; N18.9 Chronic kidney disease, unspecified
CPT/HCPCS: 36415; 70450; 71045; 71250; 76536; 76770; 80048; 80053; 80076; 80202; 81003; 81015; 82962; 83605; 83690; 83735; 83970; 84100; 84132; 84145; 84436; 84443; 84480; 84484; 85025; 85610; 85730; 87040; 87077; 87086; 87088; 87186; 93005; 94640; 96365; 96367; 99285; J0696; J1953; J2185; J7030

== ENCOUNTER → 2018-05-07 | Day surgery (SDC) | payer OTHER ==
[~2018-05-07] MED LIST: EPINEPHRINE/PF 1 MG/ML AMP ONE; LIDOCAINE 1.5% W/EPI AMP 5 ML ONE; NA CHLORIDE 0.9% 0 ML ONE
--- OUTSIDE RECORDS SUMMARY | 2018-05-07 10:56 | XMS REPORT | Clinical Summary ---
:1930 Author Organization [facility] Address [address] [place] [address] Care Team Providers Name Role Phone Sharpless [...] Not on file Results Not on fileafter 05/06/2017 Insurance Payer Benefit Plan / Group Subscriber ID Type Phone Address [facility] xxxxxxxxx Maps Contracted Advance Directives For more information, please contact:[address] [phone] Code Status Date Activated Date Inactivated Comments Full Code 09/22/2015 10:53 AM 10/03/2015 5:33 PM This code status was determined by: Patient
--- OUTSIDE RECORDS SUMMARY | 2018-05-07 10:57 | XMS REPORT ---
:1930 [facility] Address [address] [place] [address] Dr. Ram [address] [place] [id number] Care Team Providers Name Role Phone JORDEN MUNOZ Unavailable Unavailable Problems This patient has no known problems. Allergies, Adverse Reactions, Alerts This patient has no known allergies or adverse reactions. Medications This patient has no known medications. Results Test Description Test Time Test Comments Text Results Atomic Results Result Comments BLOOD CULTURE 2016-10-29 18:00:00 Test Item Value Reference Range Comments CULTURE (BEAKER) (test ifxp=3014) No growth in 5 days BLOOD [id number] 18:00:00 Test Item Value Reference Range Comments CULTURE (BEAKER) (test kewx=3987) No growth in 5 days POCT-GLUCOSE [id number] 07:52:00 Test Item Value Reference Range Comments POC-GLUCOSE METER (BEAKER) 95 mg/dL 70-110 TESTED AT [facility] [address] [place] [address] (test slpl=4415) [facility] [address] TSH/FREE T4 IF [id number] 06:35:00 Test Item Value Reference Range Comments THYROID STIMULATING HORMONE (BEAKER) (test 1.58 uIU/mL 0.35-4.94 sryz=241) VITAMIN D, [id number] 05:55:00 Test Item Value Reference Range Comments VITAMIN D 25-OH (BEAKER) (test bktv=3760) < ng/mL 13.0-47.8 TROPONIN [id number] 05:12:00 Test Item Value Reference Range Comments TROPONIN I (BEAKER) (test loid=461) 0.02 ng/mL 0.00-0.03 Effective 01/24/2014: Reference Range [...] renalfailure, acidosis, acute neurological disease, and persistent tachyarrhythmia.[id number] 05:04: 00 Test Item Value Reference Range Comments PHOSPHORUS (BEAKER) (test orrs=542) 2.9 mg/dL 2.3-4.7 [id number] 05:04:00 Test Item Value Reference Range Comments MAGNESIUM (BEAKER) (test tzza=448) 1.9 mg/dL 1.6-2.6 BASIC METABOLIC [id number] 05:04:00 Test Item Value Reference Range Comments SODIUM (BEAKER) (test 142 meq/L 136-145 pzjn=978) POTASSIUM (BEAKER) (test 3.9 meq/L 3.5-5.1 mcga=466) CHLORIDE (BEAKER) (test 112 meq/L 98-107 heoa=762) CO2 (BEAKER) (test 23 meq/L 22-29 ckqi=599) BLOOD UREA NITROGEN 19 mg/dL 7-21 (BEAKER) (test byox=123) CREATININE (BEAKER) (test 0.84 mg/dL 0.57-1.25 edgt=360) GLUCOSE RANDOM (BEAKER) 107 mg/dL 70-105 (test csid=406) CALCIUM (BEAKER) (test 8.9 mg/dL 8.4-10.2 tsyz=504) EGFR (BEAKER) (test 78 mL/min/1.73 sq m ESTIMATED GFR IS NOT penc=1036) ACCURATE CREATININE CLEARANCE IN PREDICTING GLOMERULAR FILTRATION RATE. ESTIMATED GFR IS NOT APPLICABLE FOR DIALYSIS PATIENTS. CBC W/PLT COUNT & AUTO [id number] 04:51:00 Test Item Value Reference Range Comments WHITE BLOOD CELL COUNT (BEAKER) (test xzjz=735) 8.3 K/ L 3.5-10.5 RED BLOOD CELL COUNT (BEAKER) (test dnli=496) 3.07 M/ L 3.93-5.22 HEMOGLOBIN (BEAKER) (test dopk=856) 9.2 GM/DL 11.2-15.7 HEMATOCRIT (BEAKER) (test nczv=594) 29.1 % 34.1-44.9 MEAN CORPUSCULAR VOLUME (BEAKER) (test wmbu=027) 94.8 fL 79.4-94.8 MEAN CORPUSCULAR HEMOGLOBIN (BEAKER) (test 30.0 pg 25.6-32.2 rrhe=987) MEAN CORPUSCULAR HEMOGLOBIN CONC (BEAKER) (test 31.6 GM/DL 32.2-35.5 ktbp=909) RED CELL DISTRIBUTION WIDTH (BEAKER) (test 14.3 % 11.7-14.4 wfzc=532) PLATELET COUNT (BEAKER) (test jufb=285) 182 K/CU MM 150-450 MEAN PLATELET VOLUME (BEAKER) (test jqra=811) 9.8 fL 9.4-12.3 NUCLEATED RED BLOOD CELLS (BEAKER) (test 0 /100 WBC 0-0 yupg=027) NEUTROPHILS RELATIVE PERCENT (BEAKER) (test 61 % vsff=884) LYMPHOCYTES RELATIVE PERCENT (BEAKER) (test 31 % pkhj=153) MONOCYTES RELATIVE PERCENT (BEAKER) (test 8 % nsai=132) EOSINOPHILS RELATIVE PERCENT (BEAKER) (test 0 % oqkq=370) BASOPHILS RELATIVE PERCENT (BEAKER) (test 1 % bpda=513) NEUTROPHILS ABSOLUTE COUNT (BEAKER) (test 5.03 K/ L 1.56-6.13 gxum=025) LYMPHOCYTES ABSOLUTE COUNT (BEAKER) (test 2.54 K/ L 1.18-3.74 zmpx=513) MONOCYTES ABSOLUTE COUNT (BEAKER) (test 0.64 K/ L 0.24-0.36 ozrt=145) EOSINOPHILS ABSOLUTE COUNT (BEAKER) (test 0.01 K/ L 0.04-0.36 rwek=538) BASOPHILS ABSOLUTE COUNT (BEAKER) (test 0.05 K/ L 0.01-0.08 uteh=791) IMMATURE GRANULOCYTES-RELATIVE PERCENT (BEAKER) 1 % 0-1 (test cpho=0033) POCT-GLUCOSE [id number] 23:47:00 Test Item Value Reference Range Comments POC-GLUCOSE METER (BEAKER) 121 mg/dL 70-110 TESTED AT [facility] [address] [facility] (test wudv=3493) [place] [address] CBC W/PLT COUNT & AUTO [id number] 07:13:00 Test Item Value Reference Range Comments WHITE BLOOD CELL COUNT (BEAKER) (test iboa=904) 8.9 K/ L 3.5-10.5 RED BLOOD CELL COUNT (BEAKER) (test houz=970) 3.47 M/ L 3.93-5.22 HEMOGLOBIN (BEAKER) (test wrii=191) 10.6 GM/DL 11.2-15.7 HEMATOCRIT (BEAKER) (test xnky=429) 33.4 % 34.1-44.9 MEAN CORPUSCULAR VOLUME (BEAKER) (test lknt=757) 96.3 fL 79.4-94.8 MEAN CORPUSCULAR HEMOGLOBIN (BEAKER) (test 30.5 pg 25.6-32.2 ropc=010) MEAN CORPUSCULAR HEMOGLOBIN CONC (BEAKER) (test 31.7 GM/DL 32.2-35.5 nxtp=099) RED CELL DISTRIBUTION WIDTH (BEAKER) (test 14.6 % 11.7-14.4 slhe=739) PLATELET COUNT (BEAKER) (test hzmn=338) 206 K/CU MM 150-450 MEAN PLATELET VOLUME (BEAKER) (test zxeo=734) 10.2 fL 9.4-12.3 NUCLEATED RED BLOOD CELLS (BEAKER) (test 0 /100 WBC 0-0 nvxm=686) NEUTROPHILS RELATIVE PERCENT (BEAKER) (test 66 % ylls=716) LYMPHOCYTES RELATIVE PERCENT (BEAKER) (test 28 % tqol=119) MONOCYTES RELATIVE PERCENT (BEAKER) (test 6 % rvbj=402) EOSINOPHILS RELATIVE PERCENT (BEAKER) (test 0 % naav=068) BASOPHILS RELATIVE PERCENT (BEAKER) (test 1 % oqpb=813) NEUTROPHILS ABSOLUTE COUNT (BEAKER) (test 5.84 K/ L 1.56-6.13 mxfz=733) LYMPHOCYTES ABSOLUTE COUNT (BEAKER) (test 2.47 K/ L 1.18-3.74 jxmu=536) MONOCYTES ABSOLUTE COUNT (BEAKER) (test 0.51 K/ L 0.24-0.36 sfih=429) EOSINOPHILS ABSOLUTE COUNT (BEAKER) (test 0.01 K/ L 0.04-0.36 camu=265) BASOPHILS ABSOLUTE COUNT (BEAKER) (test 0.06 K/ L 0.01-0.08 imhv=393) IMMATURE GRANULOCYTES-RELATIVE PERCENT (BEAKER) 0 % 0-1 (test kefn=6932) PHENYTOIN LEVEL, [id number] 06:29:00 Test Item Value Reference Range Comments PHENYTOIN (DILANTIN) (BEAKER) (test qkqf=004) 21.3 ug/mL 10.0-20.0 Prior to morning dose [id number] 06:18:00 Test Item Value Reference Range Comments PHOSPHORUS (BEAKER) (test paku=317) 2.8 mg/dL 2.3-4.7 [id number] 06:18:00 Test Item Value Reference Range Comments MAGNESIUM (BEAKER) (test ktyg=904) 2.1 mg/dL 1.6-2.6 BASIC METABOLIC [id number] 06:18:00 Test Item Value Reference Range Comments SODIUM (BEAKER) (test 142 meq/L 136-145 vked=685) POTASSIUM (BEAKER) (test 3.7 meq/L 3.5-5.1 hrrw=617) CHLORIDE (BEAKER) (test 109 meq/L 98-107 owor=668) CO2 (BEAKER) (test 24 meq/L 22-29 jusw=607) BLOOD UREA NITROGEN 12 mg/dL 7-21 (BEAKER) (test fedt=486) CREATININE (BEAKER) (test 0.78 mg/dL 0.57-1.25 zsbt=023) GLUCOSE RANDOM (BEAKER) 87 mg/dL 70-105 (test ccfy=827) CALCIUM (BEAKER) (test 9.4 mg/dL 8.4-10.2 hxgh=677) EGFR (BEAKER) (test 85 mL/min/1.73 sq m ESTIMATED GFR IS NOT sjlk=8086) ACCURATE CREATININE CLEARANCE IN PREDICTING GLOMERULAR FILTRATION RATE. ESTIMATED GFR IS NOT APPLICABLE FOR DIALYSIS PATIENTS. [id number] 06:12:00 Test Item Value Reference Range Comments POTASSIUM (BEAKER) (test 4.0 meq/L 3.5-5.1 Specimen slightly hemolyzed ztme=006) [id number] 09:55:00 Test Item Value Reference Range Comments PHOSPHORUS (BEAKER) (test rqwa=679) 2.5 mg/dL 2.3-4.7 PHENYTOIN LEVEL, [id number] 07:57:00 Test Item Value Reference Range Comments PHENYTOIN (DILANTIN) (BEAKER) (test muda=105) 20.0 ug/mL 10.0-20.0 BLOOD GAS, [id number] 05:02:00 Test Item Value Reference Range Comments PH ARTERIAL (BEAKER) (test qmts=736) 7.46 7.35-7.45 PCO2 ARTERIAL (BEAKER) (test iayk=765) 39 mmHg 35-45 PO2 ARTERIAL (BEAKER) (test rlwm=748) 144 mmHg 80-90 O2 SATURATION ARTERIAL (BEAKER) (test xaez=881) 99.0 % 96.0-97.0 HCO3 ARTERIAL (BEAKER) (test mscx=647) 27 mmol/L 21-29 BASE EXCESS ARTERIAL (BEAKER) (test zejj=875) 3.0 mmol/L -2.0-3.0 PATIENT TEMPERATURE (BEAKER) (test tnjr=6095) 37.0 C FIO2 (BEAKER) (test bace=2579) 21.0 % BASIC METABOLIC [id number] 04:34:00 Test Item Value Reference Range Comments SODIUM (BEAKER) (test 144 meq/L 136-145 owyo=396) POTASSIUM (BEAKER) (test 3.5 meq/L 3.5-5.1 siye=442) CHLORIDE (BEAKER) (test 112 meq/L 98-107 jzii=669) CO2 (BEAKER) (test 24 meq/L 22-29 islk=680) BLOOD UREA NITROGEN 9 mg/dL 7-21 (BEAKER) (test bujm=513) CREATININE (BEAKER) (test 0.80 mg/dL 0.57-1.25 ibrl=940) GLUCOSE RANDOM (BEAKER) 108 mg/dL 70-105 (test ofta=422) CALCIUM (BEAKER) (test 9.2 mg/dL 8.4-10.2 mhck=737) EGFR (BEAKER) (test 82 mL/min/1.73 sq m ESTIMATED GFR IS NOT rmsb=6267) ACCURATE CREATININE CLEARANCE IN PREDICTING GLOMERULAR FILTRATION RATE. ESTIMATED GFR IS NOT APPLICABLE FOR DIALYSIS PATIENTS. [id number] 04:30:00 Test Item Value Reference Range Comments MAGNESIUM (BEAKER) (test shkm=185) 2.3 mg/dL 1.6-2.6 CBC W/PLT COUNT & AUTO [id number] 04:12:00 Test Item Value Reference Range Comments WHITE BLOOD CELL COUNT (BEAKER) (test nsnx=846) 9.7 K/ L 3.5-10.5 RED BLOOD CELL COUNT (BEAKER) (test rnlg=784) 3.07 M/ L 3.93-5.22 HEMOGLOBIN (BEAKER) (test vzex=335) 9.4 GM/DL 11.2-15.7 HEMATOCRIT (BEAKER) (test edbb=752) 29.4 % 34.1-44.9 MEAN CORPUSCULAR VOLUME (BEAKER) (test wpcl=324) 95.8 fL 79.4-94.8 MEAN CORPUSCULAR HEMOGLOBIN (BEAKER) (test 30.6 pg 25.6-32.2 jnjv=496) MEAN CORPUSCULAR HEMOGLOBIN CONC (BEAKER) (test 32.0 GM/DL 32.2-35.5 zism=711) RED CELL DISTRIBUTION WIDTH (BEAKER) (test 14.4 % 11.7-14.4 helr=227) PLATELET COUNT (BEAKER) (test klvx=390) 182 K/CU MM 150-450 MEAN PLATELET VOLUME (BEAKER) (test iqlv=270) 9.4 fL 9.4-12.3 NUCLEATED RED BLOOD CELLS (BEAKER) (test 0 /100 WBC 0-0 qjty=561) NEUTROPHILS RELATIVE PERCENT (BEAKER) (test 71 % zhpx=562) LYMPHOCYTES RELATIVE PERCENT (BEAKER) (test 21 % bvmw=217) MONOCYTES RELATIVE PERCENT (BEAKER) (test 7 % mxvq=104) EOSINOPHILS RELATIVE PERCENT (BEAKER) (test 0 % qbuu=844) BASOPHILS RELATIVE PERCENT (BEAKER) (test 1 % pqaz=363) NEUTROPHILS ABSOLUTE COUNT (BEAKER) (test 6.89 K/ L 1.56-6.13 nfdx=130) LYMPHOCYTES ABSOLUTE COUNT (BEAKER) (test 2.05 K/ L 1.18-3.74 jkwr=730) MONOCYTES ABSOLUTE COUNT (BEAKER) (test 0.65 K/ L 0.24-0.36 ndly=224) EOSINOPHILS ABSOLUTE COUNT (BEAKER) (test 0.01 K/ L 0.04-0.36 eurr=728) BASOPHILS ABSOLUTE COUNT (BEAKER) (test 0.06 K/ L 0.01-0.08 qtec=971) IMMATURE GRANULOCYTES-RELATIVE PERCENT (BEAKER) 0 % 0-1 (test sbjs=4524) PHENYTOIN LEVEL, [id number] 22:07:00 Test Item Value Reference Range Comments PHENYTOIN (DILANTIN) (BEAKER) (test ggee=604) 14.2 ug/mL 10.0-20.0 POCT-GLUCOSE [id number] 13:56:00 Test Item Value Reference Range Comments POC-GLUCOSE METER (BEAKER) 119 mg/dL 70-110 TESTED AT [facility] [address] [place] [address] (test uhja=9737) [facility] [address] URINE [id number] 11:44:00 Test Item Value Reference Range Comments CULTURE (BEAKER) (test xtbc=0970) See comment <10,000 col/mL Gram Negative rodsSPUTUM CULTURE + GRAM [id number] 09:04: 00 Test Item Value Reference Range Comments CULTURE (BEAKER) (test 4+ Normal respiratory rachel eacp=1883) present GRAM STAIN RESULT (BEAKER) 1+ WBCs (test nnsu=0221) GRAM STAIN RESULT (BEAKER) 0-5 epithelial cells (test gsnt=12199) GRAM STAIN RESULT (BEAKER) 2+ gram positive cocci in chains (test uzdj=58255) and pairs [id number] 05:12:00 Test Item Value Reference Range Comments MAGNESIUM (BEAKER) (test 2.5 mg/dL 1.6-2.6 Specimen slightly hemolyzed gfmw=370) [id number] 05:12:00 Test Item Value Reference Range Comments PHOSPHORUS (BEAKER) (test 2.2 mg/dL 2.3-4.7 Specimen slightly hemolyzed rhxi=136) BASIC METABOLIC [id number] 05:12:00 Test Item Value Reference Range Comments SODIUM (BEAKER) (test 142 meq/L 136-145 seig=129) POTASSIUM (BEAKER) (test 4.0 meq/L 3.5-5.1 Specimen slightly iriv=048) hemolyzed CHLORIDE (BEAKER) (test 108 meq/L 98-107 kxdd=088) CO2 (BEAKER) (test 22 meq/L 22-29 ctbj=540) BLOOD UREA NITROGEN 11 mg/dL 7-21 (BEAKER) (test aeck=709) CREATININE (BEAKER) (test 0.92 mg/dL 0.57-1.25 Specimen slightly ifsj=693) hemolyzed GLUCOSE RANDOM (BEAKER) 94 mg/dL 70-105 (test tixl=887) CALCIUM (BEAKER) (test 9.7 mg/dL 8.4-10.2 rjrc=483) EGFR (BEAKER) (test mL/min/1.73 sq m INSUFFICIENT CLINICAL DATA fzpi=8397) TO CALCULATE ESTIMATED GFR. CBC W/PLT COUNT & AUTO [id number] 05:01:00 Test Item Value Reference Range Comments WHITE BLOOD CELL COUNT (BEAKER) (test lqtd=536) 12.6 K/ L 3.5-10.5 RED BLOOD CELL COUNT (BEAKER) (test abbw=018) 3.42 M/ L 3.93-5.22 HEMOGLOBIN (BEAKER) (test saxa=736) 10.3 GM/DL 11.2-15.7 HEMATOCRIT (BEAKER) (test pxrw=992) 32.4 % 34.1-44.9 MEAN CORPUSCULAR VOLUME (BEAKER) (test ygzq=447) 94.7 fL 79.4-94.8 MEAN CORPUSCULAR HEMOGLOBIN (BEAKER) (test 30.1 pg 25.6-32.2 csbw=321) MEAN CORPUSCULAR HEMOGLOBIN CONC (BEAKER) (test 31.8 GM/DL 32.2-35.5 kvhy=274) RED CELL DISTRIBUTION WIDTH (BEAKER) (test 14.2 % 11.7-14.4 tjbc=171) PLATELET COUNT (BEAKER) (test oknn=096) 219 K/CU MM 150-450 MEAN PLATELET VOLUME (BEAKER) (test snmk=491) 10.0 fL 9.4-12.3 NUCLEATED RED BLOOD CELLS (BEAKER) (test 0 /100 WBC 0-0 obnh=498) NEUTROPHILS RELATIVE PERCENT (BEAKER) (test 57 % otra=431) LYMPHOCYTES RELATIVE PERCENT (BEAKER) (test 35 % smyi=942) MONOCYTES RELATIVE PERCENT (BEAKER) (test 7 % whcz=812) EOSINOPHILS RELATIVE PERCENT (BEAKER) (test 0 % bruy=841) BASOPHILS RELATIVE PERCENT (BEAKER) (test 1 % cfvw=523) NEUTROPHILS ABSOLUTE COUNT (BEAKER) (test 7.19 K/ L 1.56-6.13 lqrt=139) LYMPHOCYTES ABSOLUTE COUNT (BEAKER) (test 4.39 K/ L 1.18-3.74 yvxu=381) MONOCYTES ABSOLUTE COUNT (BEAKER) (test 0.91 K/ L 0.24-0.36 hctq=549) EOSINOPHILS ABSOLUTE COUNT (BEAKER) (test 0.01 K/ L 0.04-0.36 ypwm=270) BASOPHILS ABSOLUTE COUNT (BEAKER) (test 0.06 K/ L 0.01-0.08 fldp=465) IMMATURE GRANULOCYTES-RELATIVE PERCENT (BEAKER) 0 % 0-1 (test hlin=0572) [id number] 21:19:00 Test Item Value Reference Range Comments POTASSIUM (BEAKER) (test chwf=703) 3.8 meq/L 3.5-5.1 POCT-GLUCOSE [id number] 18:19:00 Test Item Value Reference Range Comments POC-GLUCOSE METER (BEAKER) 113 mg/dL 70-110 TESTED AT [address] (test nmyd=1825) [place] [address] POCT-GLUCOSE [id number] 13:32:00 Test Item Value Reference Range Comments POC-GLUCOSE METER (BEAKER) 107 mg/dL 70-110 TESTED AT [address] (test dzuc=7324) [place] [address] POCT-GLUCOSE [id number] 07:32:00 Test Item Value Reference Range Comments POC-GLUCOSE METER (BEAKER) 105 mg/dL 70-110 TESTED AT [address] (test djjx=2220) [place] [address] BASIC METABOLIC [id number] 05:54:00 Test Item Value Reference Range Comments SODIUM (BEAKER) (test 143 meq/L 136-145 webe=181) POTASSIUM (BEAKER) (test 3.3 meq/L 3.5-5.1 Specimen slightly chvk=077) hemolyzed CHLORIDE (BEAKER) (test 109 meq/L 98-107 vzsl=607) CO2 (BEAKER) (test 24 meq/L 22-29 anvj=521) BLOOD UREA NITROGEN 11 mg/dL 7-21 (BEAKER) (test nghh=057) CREATININE (BEAKER) (test 0.79 mg/dL 0.57-1.25 Specimen slightly rsbx=743) hemolyzed GLUCOSE RANDOM (BEAKER) 98 mg/dL 70-105 (test kvbt=509) CALCIUM (BEAKER) (test 9.2 mg/dL 8.4-10.2 ygij=744) EGFR (BEAKER) (test mL/min/1.73 sq m INSUFFICIENT CLINICAL DATA pxkd=9082) TO CALCULATE ESTIMATED GFR. BLOOD GAS, [id number] 05:44:00 Test Item Value Reference Range Comments PH ARTERIAL (BEAKER) (test kgzv=834) 7.45 7.35-7.45 PCO2 ARTERIAL (BEAKER) (test nzmw=501) 40 mmHg 35-45 PO2 ARTERIAL (BEAKER) (test dbsv=605) 59 mmHg 80-90 O2 SATURATION ARTERIAL (BEAKER) (test cddk=556) 91.1 % 96.0-97.0 HCO3 ARTERIAL (BEAKER) (test diur=356) 27 mmol/L 21-29 BASE EXCESS ARTERIAL (BEAKER) (test npfx=103) 2.6 mmol/L -2.0-3.0 PATIENT TEMPERATURE (BEAKER) (test yfwu=5554) 37.5 C FIO2 (BEAKER) (test bvtq=6824) 40.0 % [id number] 05:38:00 Test Item Value Reference Range Comments MAGNESIUM (BEAKER) (test 2.4 mg/dL 1.6-2.6 Specimen slightly hemolyzed gfjr=124) [id number] 05:38:00 Test Item Value Reference Range Comments PHOSPHORUS (BEAKER) (test 2.0 mg/dL 2.3-4.7 Specimen slightly hemolyzed mjkv=398) CBC W/PLT COUNT & AUTO [id number] 05:14:00 Test Item Value Reference Range Comments WHITE BLOOD CELL COUNT (BEAKER) (test bzca=086) 9.8 K/ L 3.5-10.5 RED BLOOD CELL COUNT (BEAKER) (test genj=918) 3.07 M/ L 3.93-5.22 HEMOGLOBIN (BEAKER) (test tyxd=821) 9.5 GM/DL 11.2-15.7 HEMATOCRIT (BEAKER) (test iquq=433) 29.6 % 34.1-44.9 MEAN CORPUSCULAR VOLUME (BEAKER) (test wsdq=350) 96.4 fL 79.4-94.8 MEAN CORPUSCULAR HEMOGLOBIN (BEAKER) (test 30.9 pg 25.6-32.2 nesq=195) MEAN CORPUSCULAR HEMOGLOBIN CONC (BEAKER) (test 32.1 GM/DL 32.2-35.5 vhrd=257) RED CELL DISTRIBUTION WIDTH (BEAKER) (test 14.2 % 11.7-14.4 fpta=483) PLATELET COUNT (BEAKER) (test scne=913) 192 K/CU MM 150-450 MEAN PLATELET VOLUME (BEAKER) (test bzkk=739) 10.0 fL 9.4-12.3 NUCLEATED RED BLOOD CELLS (BEAKER) (test 0 /100 WBC 0-0 fwca=683) NEUTROPHILS RELATIVE PERCENT (BEAKER) (test 74 % fmzo=056) LYMPHOCYTES RELATIVE PERCENT (BEAKER) (test 18 % cwrx=715) MONOCYTES RELATIVE PERCENT (BEAKER) (test 8 % bdzu=823) EOSINOPHILS RELATIVE PERCENT (BEAKER) (test 0 % itob=230) BASOPHILS RELATIVE PERCENT (BEAKER) (test 0 % uddf=706) NEUTROPHILS ABSOLUTE COUNT (BEAKER) (test 7.28 K/ L 1.56-6.13 ejmy=797) LYMPHOCYTES ABSOLUTE COUNT (BEAKER) (test 1.72 K/ L 1.18-3.74 vqbg=604) MONOCYTES ABSOLUTE COUNT (BEAKER) (test 0.76 K/ L 0.24-0.36 ptvt=464) EOSINOPHILS ABSOLUTE COUNT (BEAKER) (test 0.00 K/ L 0.04-0.36 qmmn=521) BASOPHILS ABSOLUTE COUNT (BEAKER) (test 0.03 K/ L 0.01-0.08 tyff=251) IMMATURE GRANULOCYTES-RELATIVE PERCENT (BEAKER) 1 % 0-1 (test jlgk=8586) RAD, CHEST, 1 VIEW, NON [id number] 03:01:00Reason for exam:->ETT verficiationShould this be performed at the bedside?->YesFINAL REPORT EXAMINATION: AP PORTABLE CHEST RADIOGRAPH CLINICAL INDICATION: Intubated. Evaluate positioning of the endotracheal tube. FINDINGS: Compared with 10/24/2016. The tip of the endotracheal tube has been pulled back and now projects over the midline approximately 3 cm superior to the franklin. The tip of the nasogastric tube has [...] MDReport Verified Date/Time: 2016 03:01:35 Reading Location: [address] Reading Room TROPONIN [id number] 02:55:00 Test Item Value Reference Range Comments TROPONIN I (BEAKER) (test vamr=759) 0.31 ng/mL 0.00-0.03 Effective 01/24/2014: Reference Range [...] and persistent tachyarrhythmia.CREATINE KINASE (CK), TOTAL AND [id number] 02:36:00 Test Item Value Reference Range Comments CREATINE KINASE TOTAL (BEAKER) (test ecej=472) 260 U/L 29-200 CREATINE KINASE-MB (BEAKER) (test pnat=052) 4.5 ng/mL 0.0-6.6 CREATINE KINASE-MB INDEX (BEAKER) (test zjkr=586) 1.7 % Effective 01/24/2014: CK-MB Reference Range ChangeNew: 0.0-6.6 Previous: 0.0- 4.9CK-MB Reference Range:<6.7 Normal6.7-10.0 Borderline>10.0 AbnormalPOCT-GLUCOSE [id number] 00:18:00 Test Item Value Reference Range Comments POC-GLUCOSE METER (BEAKER) 103 mg/dL 70-110 TESTED AT [address] (test hgph=8405) [place] [address] BASIC METABOLIC [id number] 18:32:00 Test Item Value Reference Range Comments SODIUM (BEAKER) (test 142 meq/L 136-145 bart=196) POTASSIUM (BEAKER) (test 3.0 meq/L 3.5-5.1 ggsu=670) CHLORIDE (BEAKER) (test 107 meq/L 98-107 vygr=768) CO2 (BEAKER) (test 22 meq/L 22-29 gvut=095) BLOOD UREA NITROGEN 14 mg/dL 7-21 (BEAKER) (test hqih=293) CREATININE (BEAKER) (test 0.97 mg/dL 0.57-1.25 tvvf=739) GLUCOSE RANDOM (BEAKER) 119 mg/dL 70-105 (test idwu=643) CALCIUM (BEAKER) (test 8.9 mg/dL 8.4-10.2 uduu=439) EGFR (BEAKER) (test mL/min/1.73 sq m INSUFFICIENT CLINICAL DATA wxjw=4751) TO CALCULATE ESTIMATED GFR. [id number] 18:23:00 Test Item Value Reference Range Comments PHOSPHORUS (BEAKER) (test tcok=824) 1.6 mg/dL 2.3-4.7 [id number] 18:23:00 Test Item Value Reference Range Comments MAGNESIUM (BEAKER) (test brkb=352) 1.6 mg/dL 1.6-2.6 POCT-GLUCOSE [id number] 18:16:00 Test Item Value Reference Range Comments POC-GLUCOSE METER (BEAKER) 118 mg/dL 70-110 TESTED AT [address] (test tksb=1055) [place] [address] TROPONIN [id number] 16:10:00 Test Item Value Reference Range Comments TROPONIN I (BEAKER) (test afcj=541) 0.27 ng/mL 0.00-0.03 Effective 01/24/2014: Reference Range [...] and persistent tachyarrhythmia.CREATINE KINASE (CK), TOTAL AND [id number] 15:44:00 Test Item Value Reference Range Comments CREATINE KINASE TOTAL (BEAKER) (test srav=900) 117 U/L 29-200 CREATINE KINASE-MB (BEAKER) (test bcwz=562) 5.0 ng/mL 0.0-6.6 CREATINE KINASE-MB INDEX (BEAKER) (test eaiu=700) 4.3 % Effective 01/24/2014: CK-MB Reference Range ChangeNew: 0.0-6.6 Previous: 0.0- 4.9CK-MB Reference Range:<6.7 Normal6.7-10.0 Borderline>10.0 AbnormalURINALYSIS W/ [id number] 15:35:00 Test Item Value Reference Range Comments COLOR (BEAKER) (test nzvj=622) Light Yellow CLARITY (BEAKER) (test oauc=733) Clear SPECIFIC GRAVITY UA (BEAKER) (test aywi=478) 1.006 1.001-1.035 PH UA (BEAKER) (test huuk=319) 7.5 5.0-8.0 PROTEIN UA (BEAKER) (test kmrg=781) Negative Negative GLUCOSE UA (BEAKER) (test ptzf=723) Negative Negative KETONES UA (BEAKER) (test imli=159) Negative Negative BILIRUBIN UA (BEAKER) (test cgyx=553) Negative Negative BLOOD UA (BEAKER) (test fqve=008) Trace Negative NITRITE UA (BEAKER) (test etoj=347) Negative Negative LEUKOCYTE ESTERASE UA (BEAKER) (test phnj=377) Negative Negative UROBILINOGEN UA (BEAKER) (test ahsr=776) 0.2 mg/dL 0.2-1.0 RBC UA (BEAKER) (test nqcz=461) 2 /HPF WBC UA (BEAKER) (test leua=214) 2 /HPF BACTERIA (BEAKER) (test usgl=222) Rare SQUAMOUS EPITHELIAL (BEAKER) (test gzom=018) 1 /HPF SOURCE(BEAKER) (test rylp=1241) Urine, [place] HEPATIC FUNCTION [id number] 15:06:00 Test Item Value Reference Range Comments TOTAL PROTEIN (BEAKER) (test ujzw=149) 7.4 gm/dL 6.0-8.3 ALBUMIN (BEAKER) (test zppo=0594) 3.6 g/dL 3.5-5.0 BILIRUBIN TOTAL (BEAKER) (test gdqo=003) 0.3 mg/dL 0.2-1.2 BILIRUBIN DIRECT (BEAKER) (test yrxw=371) 0.2 mg/dL 0.1-0.5 ALKALINE PHOSPHATASE (BEAKER) (test vney=458) 97 U/L 40-150 AST (SGOT) (BEAKER) (test naay=126) 20 U/L 5-34 ALT (SGPT) (BEAKER) (test smnj=303) 8 U/L 6-55 PROTHROMBIN [id number] 14:53:00 Test Item Value Reference Range Comments PROTIME (BEAKER) (test fmft=122) 17.0 seconds 11.7-14.7 INR (BEAKER) (test bbbh=122) 1.4 <=5.9 RECOMMENDED COUMADIN/WARFARIN INR THERAPY RANGESSTANDARD DOSE: 2.0 - 3.0 Includes: PROPHYLAXIS forvenous thrombosis, systemic embolization; TREATMENT for venous thrombosis and/or pulmonary embolus.HIGH RISK: Target INR is 2.5-3.5 for patients with mechanical heart valves.[id number] 14:53:00 Test Item Value Reference Range Comments PARTIAL THROMBOPLASTIN TIME (BEAKER) (test 33.9 seconds 22.5-36.0 ljnc=859) BLOOD GAS, [id number] 14:44:00 Test Item Value Reference Range Comments PH ARTERIAL (BEAKER) (test dedu=823) 7.36 7.35-7.45 PCO2 ARTERIAL (BEAKER) (test nqgh=220) 46 mmHg 35-45 PO2 ARTERIAL (BEAKER) (test hqcx=760) 51 mmHg 80-90 O2 SATURATION ARTERIAL (BEAKER) (test gius=433) 84.2 % 96.0-97.0 HCO3 ARTERIAL (BEAKER) (test oavq=488) 25 mmol/L 21-29 BASE EXCESS ARTERIAL (BEAKER) (test gdko=592) -0.6 mmol/L -2.0-3.0 PATIENT TEMPERATURE (BEAKER) (test hafb=0640) 37.0 C FIO2 (BEAKER) (test izwl=4435) 40.0 %
--- NOTE | 2018-05-07 12:55 | RAD REPORT ---
EXAM DESCRIPTION: US - Guided FNA Non Breast - 05/07/2018 11:18 am CLINICAL HISTORY: ^E04.1 COMPARISON: Thyroid ultrasound April 08, 2018. TECHNIQUE: The patient presents for ultrasound-guided fine-needle aspiration of a previously detaile d approximately 2 cminferior left lobe nodule. The procedure, risks and alternatives to procedure were discussed with the patient and family member that had medical power of securities attorney. After answering all questions, both oral and written consent were obtained. The patient had no contraindicated allergy. The patient was off Coumadin therapy for 7 day s. Preliminary imaging again identified the nodule. Anterior left neck was prepped and draped in the usu al sterile fashion. Skin and deeper tissues were anesthetized with 1% lidocaine. Under direct sonogra phic visualization was 25 gauge needle was advanced into the nodule. Multiple to and fro excursions o f the needle tip were made. The FNA procedure was repeated with 3 additional 25 gauge needles. All ma terial was given to pathology for assessment. Post FNA imaging showed no hematoma or evidence for bleeding in the neck. A bandage was placed over t he puncture site. Post-procedure care and precaution instructions were given to the patient and famil y member. FINDINGS: Ultrasound-guided FNA was performed of a 2 cm nodule left lobe thyroid gland.
== END ==
LOC: FNA 10:41
PROVIDERS: ATTEND Internal Medicine Sleep Medicine
PROC: 0G9G3ZX Drainage of Left Thyroid Gland Lobe, Percutaneous Approach, Diagnostic (ICD-10-PCS; principal; 2018-05-07)
PROC: BG44ZZZ Ultrasonography of Thyroid Gland (ICD-10-PCS; 2018-05-07)
DX: E04.1 Nontoxic single thyroid nodule (principal)
CPT/HCPCS: 88161; J0171; J2001

== ENCOUNTER 2018-05-14 10:49 | Inpatient (IN) | payer OTHER ==
--- OUTSIDE RECORDS SUMMARY | 2018-05-14 10:51 | XMS REPORT | Clinical Summary ---
:1930 Author Organization [facility] Address [address] [place] [address] Care Team Providers Name Role Phone Sharpless [...] Not on file Results Not on fileafter 05/13/2017 Insurance Payer Benefit Plan / Group Subscriber ID Type Phone Address [facility] xxxxxxxxx Maps Contracted Advance Directives For more information, please contact:[address] [phone] Code Status Date Activated Date Inactivated Comments Full Code 09/22/2015 10:53 AM 10/03/2015 5:33 PM This code status was determined by: Patient
--- OUTSIDE RECORDS SUMMARY | 2018-05-14 10:52 | XMS REPORT ---
:1930 [facility] Organization [facility] Address [address] [place] [address] Dr[address] Ram [address] [place] [id number] Care Team Providers Name Role Phone JORDEN MUNOZ Unavailable Unavailable Problems This patient has no known problems. Allergies, Adverse Reactions, Alerts This patient has no known allergies or adverse reactions. Medications This patient has no known medications. Results Test Description Test Time Test Comments Text Results Atomic Results Result Comments BLOOD CULTURE 2016-10-29 18:00:00 Test Item Value Reference Range Comments CULTURE (BEAKER) (test pxti=7670) No growth in 5 days BLOOD [id number] 18:00:00 Test Item Value Reference Range Comments CULTURE (BEAKER) (test whuw=5549) No growth in 5 days POCT-GLUCOSE [id number] 07:52:00 Test Item Value Reference Range Comments POC-GLUCOSE METER (BEAKER) 95 mg/dL 70-110 TESTED AT [facility] [address] [facility] (test dqut=8556) [facility] [address] TSH/FREE T4 IF [id number] 06:35:00 Test Item Value Reference Range Comments THYROID STIMULATING HORMONE (BEAKER) (test 1.58 uIU/mL 0.35-4.94 tqtj=908) VITAMIN D, [id number] 05:55:00 Test Item Value Reference Range Comments VITAMIN D 25-OH (BEAKER) (test lzbv=5555) < ng/mL 13.0-47.8 TROPONIN [id number] 05:12:00 Test Item Value Reference Range Comments TROPONIN I (BEAKER) (test ecrz=789) 0.02 ng/mL 0.00-0.03 Effective 01/24/2014: Reference Range [...] renalfailure, acidosis, acute neurological disease, and persistent tachyarrhythmia.[id number] 05:04: 00 Test Item Value Reference Range Comments PHOSPHORUS (BEAKER) (test ozll=072) 2.9 mg/dL 2.3-4.7 [id number] 05:04:00 Test Item Value Reference Range Comments MAGNESIUM (BEAKER) (test lgxr=565) 1.9 mg/dL 1.6-2.6 BASIC METABOLIC [id number] 05:04:00 Test Item Value Reference Range Comments SODIUM (BEAKER) (test 142 meq/L 136-145 tjme=611) POTASSIUM (BEAKER) (test 3.9 meq/L 3.5-5.1 jrrc=557) CHLORIDE (BEAKER) (test 112 meq/L 98-107 rrjc=304) CO2 (BEAKER) (test 23 meq/L 22-29 ejel=184) BLOOD UREA NITROGEN 19 mg/dL 7-21 (BEAKER) (test euvf=691) CREATININE (BEAKER) (test 0.84 mg/dL 0.57-1.25 urwh=226) GLUCOSE RANDOM (BEAKER) 107 mg/dL 70-105 (test nzkq=699) CALCIUM (BEAKER) (test 8.9 mg/dL 8.4-10.2 ksdb=917) EGFR (BEAKER) (test 78 mL/min/1.73 sq m ESTIMATED GFR IS NOT aqxv=1400) ACCURATE CREATININE CLEARANCE IN PREDICTING GLOMERULAR FILTRATION RATE. ESTIMATED GFR IS NOT APPLICABLE FOR DIALYSIS PATIENTS. CBC W/PLT COUNT & AUTO [id number] 04:51:00 Test Item Value Reference Range Comments WHITE BLOOD CELL COUNT (BEAKER) (test wcyu=657) 8.3 K/ L 3.5-10.5 RED BLOOD CELL COUNT (BEAKER) (test tkzn=755) 3.07 M/ L 3.93-5.22 HEMOGLOBIN (BEAKER) (test plnt=019) 9.2 GM/DL 11.2-15.7 HEMATOCRIT (BEAKER) (test wyzi=600) 29.1 % 34.1-44.9 MEAN CORPUSCULAR VOLUME (BEAKER) (test qtab=197) 94.8 fL 79.4-94.8 MEAN CORPUSCULAR HEMOGLOBIN (BEAKER) (test 30.0 pg 25.6-32.2 ujnm=649) MEAN CORPUSCULAR HEMOGLOBIN CONC (BEAKER) (test 31.6 GM/DL 32.2-35.5 udqm=794) RED CELL DISTRIBUTION WIDTH (BEAKER) (test 14.3 % 11.7-14.4 nguh=212) PLATELET COUNT (BEAKER) (test ifwc=481) 182 K/CU MM 150-450 MEAN PLATELET VOLUME (BEAKER) (test irdw=038) 9.8 fL 9.4-12.3 NUCLEATED RED BLOOD CELLS (BEAKER) (test 0 /100 WBC 0-0 nelw=679) NEUTROPHILS RELATIVE PERCENT (BEAKER) (test 61 % xbjl=952) LYMPHOCYTES RELATIVE PERCENT (BEAKER) (test 31 % aghw=163) MONOCYTES RELATIVE PERCENT (BEAKER) (test 8 % xulg=499) EOSINOPHILS RELATIVE PERCENT (BEAKER) (test 0 % lpao=327) BASOPHILS RELATIVE PERCENT (BEAKER) (test 1 % xsvt=117) NEUTROPHILS ABSOLUTE COUNT (BEAKER) (test 5.03 K/ L 1.56-6.13 zboj=877) LYMPHOCYTES ABSOLUTE COUNT (BEAKER) (test 2.54 K/ L 1.18-3.74 cmcv=812) MONOCYTES ABSOLUTE COUNT (BEAKER) (test 0.64 K/ L 0.24-0.36 lvgl=144) EOSINOPHILS ABSOLUTE COUNT (BEAKER) (test 0.01 K/ L 0.04-0.36 haue=562) BASOPHILS ABSOLUTE COUNT (BEAKER) (test 0.05 K/ L 0.01-0.08 cxtz=312) IMMATURE GRANULOCYTES-RELATIVE PERCENT (BEAKER) 1 % 0-1 (test eeja=8603) POCT-GLUCOSE [id number] 23:47:00 Test Item Value Reference Range Comments POC-GLUCOSE METER (BEAKER) 121 mg/dL 70-110 TESTED AT [facility] [address] [facility] (test sygi=8192) [facility] [address] CBC W/PLT COUNT & AUTO [id number] 07:13:00 Test Item Value Reference Range Comments WHITE BLOOD CELL COUNT (BEAKER) (test klro=078) 8.9 K/ L 3.5-10.5 RED BLOOD CELL COUNT (BEAKER) (test knmg=300) 3.47 M/ L 3.93-5.22 HEMOGLOBIN (BEAKER) (test zufw=953) 10.6 GM/DL 11.2-15.7 HEMATOCRIT (BEAKER) (test ijlf=637) 33.4 % 34.1-44.9 MEAN CORPUSCULAR VOLUME (BEAKER) (test jide=864) 96.3 fL 79.4-94.8 MEAN CORPUSCULAR HEMOGLOBIN (BEAKER) (test 30.5 pg 25.6-32.2 nkwo=679) MEAN CORPUSCULAR HEMOGLOBIN CONC (BEAKER) (test 31.7 GM/DL 32.2-35.5 klxo=206) RED CELL DISTRIBUTION WIDTH (BEAKER) (test 14.6 % 11.7-14.4 ygpz=513) PLATELET COUNT (BEAKER) (test aphh=103) 206 K/CU MM 150-450 MEAN PLATELET VOLUME (BEAKER) (test mnpn=895) 10.2 fL 9.4-12.3 NUCLEATED RED BLOOD CELLS (BEAKER) (test 0 /100 WBC 0-0 wmwt=624) NEUTROPHILS RELATIVE PERCENT (BEAKER) (test 66 % prnm=042) LYMPHOCYTES RELATIVE PERCENT (BEAKER) (test 28 % nekl=473) MONOCYTES RELATIVE PERCENT (BEAKER) (test 6 % dyua=127) EOSINOPHILS RELATIVE PERCENT (BEAKER) (test 0 % odxu=913) BASOPHILS RELATIVE PERCENT (BEAKER) (test 1 % cwip=303) NEUTROPHILS ABSOLUTE COUNT (BEAKER) (test 5.84 K/ L 1.56-6.13 xcyo=597) LYMPHOCYTES ABSOLUTE COUNT (BEAKER) (test 2.47 K/ L 1.18-3.74 nngj=098) MONOCYTES ABSOLUTE COUNT (BEAKER) (test 0.51 K/ L 0.24-0.36 merv=686) EOSINOPHILS ABSOLUTE COUNT (BEAKER) (test 0.01 K/ L 0.04-0.36 frnd=304) BASOPHILS ABSOLUTE COUNT (BEAKER) (test 0.06 K/ L 0.01-0.08 azxf=438) IMMATURE GRANULOCYTES-RELATIVE PERCENT (BEAKER) 0 % 0-1 (test qnsp=9843) PHENYTOIN LEVEL, [id number] 06:29:00 Test Item Value Reference Range Comments PHENYTOIN (DILANTIN) (BEAKER) (test guxk=102) 21.3 ug/mL 10.0-20.0 Prior to morning dose [id number] 06:18:00 Test Item Value Reference Range Comments PHOSPHORUS (BEAKER) (test qroh=971) 2.8 mg/dL 2.3-4.7 [id number] 06:18:00 Test Item Value Reference Range Comments MAGNESIUM (BEAKER) (test tgvu=388) 2.1 mg/dL 1.6-2.6 BASIC METABOLIC [id number] 06:18:00 Test Item Value Reference Range Comments SODIUM (BEAKER) (test 142 meq/L 136-145 ihrd=869) POTASSIUM (BEAKER) (test 3.7 meq/L 3.5-5.1 aafl=804) CHLORIDE (BEAKER) (test 109 meq/L 98-107 ibeo=195) CO2 (BEAKER) (test 24 meq/L 22-29 pquu=534) BLOOD UREA NITROGEN 12 mg/dL 7-21 (BEAKER) (test zoso=798) CREATININE (BEAKER) (test 0.78 mg/dL 0.57-1.25 duuv=229) GLUCOSE RANDOM (BEAKER) 87 mg/dL 70-105 (test tqxf=543) CALCIUM (BEAKER) (test 9.4 mg/dL 8.4-10.2 ukeq=595) EGFR (BEAKER) (test 85 mL/min/1.73 sq m ESTIMATED GFR IS NOT odkl=1164) ACCURATE CREATININE CLEARANCE IN PREDICTING GLOMERULAR FILTRATION RATE. ESTIMATED GFR IS NOT APPLICABLE FOR DIALYSIS PATIENTS. [id number] 06:12:00 Test Item Value Reference Range Comments POTASSIUM (BEAKER) (test 4.0 meq/L 3.5-5.1 Specimen slightly hemolyzed wkwx=308) [id number] 09:55:00 Test Item Value Reference Range Comments PHOSPHORUS (BEAKER) (test wbvx=671) 2.5 mg/dL 2.3-4.7 PHENYTOIN LEVEL, [id number] 07:57:00 Test Item Value Reference Range Comments PHENYTOIN (DILANTIN) (BEAKER) (test xyqe=369) 20.0 ug/mL 10.0-20.0 BLOOD GAS, [id number] 05:02:00 Test Item Value Reference Range Comments PH ARTERIAL (BEAKER) (test gfzr=825) 7.46 7.35-7.45 PCO2 ARTERIAL (BEAKER) (test saxy=572) 39 mmHg 35-45 PO2 ARTERIAL (BEAKER) (test rduc=397) 144 mmHg 80-90 O2 SATURATION ARTERIAL (BEAKER) (test svcn=277) 99.0 % 96.0-97.0 HCO3 ARTERIAL (BEAKER) (test zkgb=393) 27 mmol/L 21-29 BASE EXCESS ARTERIAL (BEAKER) (test izyi=524) 3.0 mmol/L -2.0-3.0 PATIENT TEMPERATURE (BEAKER) (test tsjc=3957) 37.0 C FIO2 (BEAKER) (test leen=6492) 21.0 % BASIC METABOLIC [id number] 04:34:00 Test Item Value Reference Range Comments SODIUM (BEAKER) (test 144 meq/L 136-145 pxly=646) POTASSIUM (BEAKER) (test 3.5 meq/L 3.5-5.1 aisa=971) CHLORIDE (BEAKER) (test 112 meq/L 98-107 ntrv=149) CO2 (BEAKER) (test 24 meq/L 22-29 lggf=000) BLOOD UREA NITROGEN 9 mg/dL 7-21 (BEAKER) (test jndw=165) CREATININE (BEAKER) (test 0.80 mg/dL 0.57-1.25 mmtf=343) GLUCOSE RANDOM (BEAKER) 108 mg/dL 70-105 (test tbhw=165) CALCIUM (BEAKER) (test 9.2 mg/dL 8.4-10.2 pojp=147) EGFR (BEAKER) (test 82 mL/min/1.73 sq m ESTIMATED GFR IS NOT jpla=7375) ACCURATE CREATININE CLEARANCE IN PREDICTING GLOMERULAR FILTRATION RATE. ESTIMATED GFR IS NOT APPLICABLE FOR DIALYSIS PATIENTS. [id number] 04:30:00 Test Item Value Reference Range Comments MAGNESIUM (BEAKER) (test ywys=787) 2.3 mg/dL 1.6-2.6 CBC W/PLT COUNT & AUTO [id number] 04:12:00 Test Item Value Reference Range Comments WHITE BLOOD CELL COUNT (BEAKER) (test musj=204) 9.7 K/ L 3.5-10.5 RED BLOOD CELL COUNT (BEAKER) (test qftb=409) 3.07 M/ L 3.93-5.22 HEMOGLOBIN (BEAKER) (test wmfn=610) 9.4 GM/DL 11.2-15.7 HEMATOCRIT (BEAKER) (test znws=148) 29.4 % 34.1-44.9 MEAN CORPUSCULAR VOLUME (BEAKER) (test yzjp=644) 95.8 fL 79.4-94.8 MEAN CORPUSCULAR HEMOGLOBIN (BEAKER) (test 30.6 pg 25.6-32.2 nvzy=349) MEAN CORPUSCULAR HEMOGLOBIN CONC (BEAKER) (test 32.0 GM/DL 32.2-35.5 fktm=174) RED CELL DISTRIBUTION WIDTH (BEAKER) (test 14.4 % 11.7-14.4 wyzl=072) PLATELET COUNT (BEAKER) (test vexd=495) 182 K/CU MM 150-450 MEAN PLATELET VOLUME (BEAKER) (test tyyw=411) 9.4 fL 9.4-12.3 NUCLEATED RED BLOOD CELLS (BEAKER) (test 0 /100 WBC 0-0 hnwe=980) NEUTROPHILS RELATIVE PERCENT (BEAKER) (test 71 % rcfw=224) LYMPHOCYTES RELATIVE PERCENT (BEAKER) (test 21 % exwj=273) MONOCYTES RELATIVE PERCENT (BEAKER) (test 7 % jhks=490) EOSINOPHILS RELATIVE PERCENT (BEAKER) (test 0 % sxvy=001) BASOPHILS RELATIVE PERCENT (BEAKER) (test 1 % uuiv=946) NEUTROPHILS ABSOLUTE COUNT (BEAKER) (test 6.89 K/ L 1.56-6.13 hzrq=458) LYMPHOCYTES ABSOLUTE COUNT (BEAKER) (test 2.05 K/ L 1.18-3.74 dldk=765) MONOCYTES ABSOLUTE COUNT (BEAKER) (test 0.65 K/ L 0.24-0.36 dnsk=593) EOSINOPHILS ABSOLUTE COUNT (BEAKER) (test 0.01 K/ L 0.04-0.36 hoab=836) BASOPHILS ABSOLUTE COUNT (BEAKER) (test 0.06 K/ L 0.01-0.08 llpy=442) IMMATURE GRANULOCYTES-RELATIVE PERCENT (BEAKER) 0 % 0-1 (test esnk=3665) PHENYTOIN LEVEL, [id number] 22:07:00 Test Item Value Reference Range Comments PHENYTOIN (DILANTIN) (BEAKER) (test coiy=213) 14.2 ug/mL 10.0-20.0 POCT-GLUCOSE [id number] 13:56:00 Test Item Value Reference Range Comments POC-GLUCOSE METER (BEAKER) 119 mg/dL 70-110 TESTED AT [facility] [address] [facility] (test aauf=6956) [facility] [address] URINE [id number] 11:44:00 Test Item Value Reference Range Comments CULTURE (BEAKER) (test dwzl=3171) See comment <10,000 col/mL Gram Negative rodsSPUTUM CULTURE + GRAM [id number] 09:04: 00 Test Item Value Reference Range Comments CULTURE (BEAKER) (test 4+ Normal respiratory rachel vnek=7054) present GRAM STAIN RESULT (BEAKER) 1+ WBCs (test yvtf=9318) GRAM STAIN RESULT (BEAKER) 0-5 epithelial cells (test fbyz=76588) GRAM STAIN RESULT (BEAKER) 2+ gram positive cocci in chains (test swqu=27478) and pairs [id number] 05:12:00 Test Item Value Reference Range Comments MAGNESIUM (BEAKER) (test 2.5 mg/dL 1.6-2.6 Specimen slightly hemolyzed gzyq=088) [id number] 05:12:00 Test Item Value Reference Range Comments PHOSPHORUS (BEAKER) (test 2.2 mg/dL 2.3-4.7 Specimen slightly hemolyzed umtz=469) BASIC METABOLIC [id number] 05:12:00 Test Item Value Reference Range Comments SODIUM (BEAKER) (test 142 meq/L 136-145 clal=630) POTASSIUM (BEAKER) (test 4.0 meq/L 3.5-5.1 Specimen slightly pjql=407) hemolyzed CHLORIDE (BEAKER) (test 108 meq/L 98-107 odex=961) CO2 (BEAKER) (test 22 meq/L 22-29 gfaa=433) BLOOD UREA NITROGEN 11 mg/dL 7-21 (BEAKER) (test girq=616) CREATININE (BEAKER) (test 0.92 mg/dL 0.57-1.25 Specimen slightly korm=670) hemolyzed GLUCOSE RANDOM (BEAKER) 94 mg/dL 70-105 (test payn=002) CALCIUM (BEAKER) (test 9.7 mg/dL 8.4-10.2 svva=935) EGFR (BEAKER) (test mL/min/1.73 sq m INSUFFICIENT CLINICAL DATA fgzb=9462) TO CALCULATE ESTIMATED GFR. CBC W/PLT COUNT & AUTO [id number] 05:01:00 Test Item Value Reference Range Comments WHITE BLOOD CELL COUNT (BEAKER) (test feyn=296) 12.6 K/ L 3.5-10.5 RED BLOOD CELL COUNT (BEAKER) (test sqqc=102) 3.42 M/ L 3.93-5.22 HEMOGLOBIN (BEAKER) (test uzzd=392) 10.3 GM/DL 11.2-15.7 HEMATOCRIT (BEAKER) (test bask=813) 32.4 % 34.1-44.9 MEAN CORPUSCULAR VOLUME (BEAKER) (test fzgy=274) 94.7 fL 79.4-94.8 MEAN CORPUSCULAR HEMOGLOBIN (BEAKER) (test 30.1 pg 25.6-32.2 xyqs=772) MEAN CORPUSCULAR HEMOGLOBIN CONC (BEAKER) (test 31.8 GM/DL 32.2-35.5 tpvi=700) RED CELL DISTRIBUTION WIDTH (BEAKER) (test 14.2 % 11.7-14.4 rhxz=995) PLATELET COUNT (BEAKER) (test gyzm=561) 219 K/CU MM 150-450 MEAN PLATELET VOLUME (BEAKER) (test svxg=495) 10.0 fL 9.4-12.3 NUCLEATED RED BLOOD CELLS (BEAKER) (test 0 /100 WBC 0-0 rxyn=423) NEUTROPHILS RELATIVE PERCENT (BEAKER) (test 57 % zbcg=729) LYMPHOCYTES RELATIVE PERCENT (BEAKER) (test 35 % uecq=477) MONOCYTES RELATIVE PERCENT (BEAKER) (test 7 % kdkb=865) EOSINOPHILS RELATIVE PERCENT (BEAKER) (test 0 % nhlc=748) BASOPHILS RELATIVE PERCENT (BEAKER) (test 1 % gdzr=831) NEUTROPHILS ABSOLUTE COUNT (BEAKER) (test 7.19 K/ L 1.56-6.13 hyre=064) LYMPHOCYTES ABSOLUTE COUNT (BEAKER) (test 4.39 K/ L 1.18-3.74 ynvq=375) MONOCYTES ABSOLUTE COUNT (BEAKER) (test 0.91 K/ L 0.24-0.36 stqu=077) EOSINOPHILS ABSOLUTE COUNT (BEAKER) (test 0.01 K/ L 0.04-0.36 skts=853) BASOPHILS ABSOLUTE COUNT (BEAKER) (test 0.06 K/ L 0.01-0.08 nxtx=433) IMMATURE GRANULOCYTES-RELATIVE PERCENT (BEAKER) 0 % 0-1 (test yfdg=4449) [id number] 21:19:00 Test Item Value Reference Range Comments POTASSIUM (BEAKER) (test jnco=502) 3.8 meq/L 3.5-5.1 POCT-GLUCOSE [id number] 18:19:00 Test Item Value Reference Range Comments POC-GLUCOSE METER (BEAKER) 113 mg/dL 70-110 TESTED AT [address] (test nptt=7795) [place] [address] POCT-GLUCOSE [id number] 13:32:00 Test Item Value Reference Range Comments POC-GLUCOSE METER (BEAKER) 107 mg/dL 70-110 TESTED AT [address] (test djpj=8042) [place] [address] POCT-GLUCOSE [id number] 07:32:00 Test Item Value Reference Range Comments POC-GLUCOSE METER (BEAKER) 105 mg/dL 70-110 TESTED AT [address] (test rfzr=6700) [place] [address] BASIC METABOLIC [id number] 05:54:00 Test Item Value Reference Range Comments SODIUM (BEAKER) (test 143 meq/L 136-145 trld=645) POTASSIUM (BEAKER) (test 3.3 meq/L 3.5-5.1 Specimen slightly odfs=172) hemolyzed CHLORIDE (BEAKER) (test 109 meq/L 98-107 dnfm=352) CO2 (BEAKER) (test 24 meq/L 22-29 sfid=313) BLOOD UREA NITROGEN 11 mg/dL 7-21 (BEAKER) (test amen=686) CREATININE (BEAKER) (test 0.79 mg/dL 0.57-1.25 Specimen slightly xnkv=244) hemolyzed GLUCOSE RANDOM (BEAKER) 98 mg/dL 70-105 (test gyan=398) CALCIUM (BEAKER) (test 9.2 mg/dL 8.4-10.2 nzua=741) EGFR (BEAKER) (test mL/min/1.73 sq m INSUFFICIENT CLINICAL DATA nvst=6379) TO CALCULATE ESTIMATED GFR. BLOOD GAS, [id number] 05:44:00 Test Item Value Reference Range Comments PH ARTERIAL (BEAKER) (test noam=291) 7.45 7.35-7.45 PCO2 ARTERIAL (BEAKER) (test tbjg=277) 40 mmHg 35-45 PO2 ARTERIAL (BEAKER) (test qhzo=208) 59 mmHg 80-90 O2 SATURATION ARTERIAL (BEAKER) (test hmys=233) 91.1 % 96.0-97.0 HCO3 ARTERIAL (BEAKER) (test sdad=016) 27 mmol/L 21-29 BASE EXCESS ARTERIAL (BEAKER) (test wozi=743) 2.6 mmol/L -2.0-3.0 PATIENT TEMPERATURE (BEAKER) (test ydqj=7611) 37.5 C FIO2 (BEAKER) (test vjjy=6180) 40.0 % [id number] 05:38:00 Test Item Value Reference Range Comments MAGNESIUM (BEAKER) (test 2.4 mg/dL 1.6-2.6 Specimen slightly hemolyzed lszn=075) [id number] 05:38:00 Test Item Value Reference Range Comments PHOSPHORUS (BEAKER) (test 2.0 mg/dL 2.3-4.7 Specimen slightly hemolyzed mrkn=238) CBC W/PLT COUNT & AUTO [id number] 05:14:00 Test Item Value Reference Range Comments WHITE BLOOD CELL COUNT (BEAKER) (test uiug=846) 9.8 K/ L 3.5-10.5 RED BLOOD CELL COUNT (BEAKER) (test qigy=147) 3.07 M/ L 3.93-5.22 HEMOGLOBIN (BEAKER) (test empc=994) 9.5 GM/DL 11.2-15.7 HEMATOCRIT (BEAKER) (test pthl=110) 29.6 % 34.1-44.9 MEAN CORPUSCULAR VOLUME (BEAKER) (test tuoh=477) 96.4 fL 79.4-94.8 MEAN CORPUSCULAR HEMOGLOBIN (BEAKER) (test 30.9 pg 25.6-32.2 sqag=233) MEAN CORPUSCULAR HEMOGLOBIN CONC (BEAKER) (test 32.1 GM/DL 32.2-35.5 krvm=074) RED CELL DISTRIBUTION WIDTH (BEAKER) (test 14.2 % 11.7-14.4 zxjq=243) PLATELET COUNT (BEAKER) (test hvcb=110) 192 K/CU MM 150-450 MEAN PLATELET VOLUME (BEAKER) (test loxu=154) 10.0 fL 9.4-12.3 NUCLEATED RED BLOOD CELLS (BEAKER) (test 0 /100 WBC 0-0 czsi=760) NEUTROPHILS RELATIVE PERCENT (BEAKER) (test 74 % mzmz=055) LYMPHOCYTES RELATIVE PERCENT (BEAKER) (test 18 % pxqz=122) MONOCYTES RELATIVE PERCENT (BEAKER) (test 8 % mtyc=388) EOSINOPHILS RELATIVE PERCENT (BEAKER) (test 0 % imcu=980) BASOPHILS RELATIVE PERCENT (BEAKER) (test 0 % yawz=516) NEUTROPHILS ABSOLUTE COUNT (BEAKER) (test 7.28 K/ L 1.56-6.13 ltbr=319) LYMPHOCYTES ABSOLUTE COUNT (BEAKER) (test 1.72 K/ L 1.18-3.74 mcvu=941) MONOCYTES ABSOLUTE COUNT (BEAKER) (test 0.76 K/ L 0.24-0.36 odcx=313) EOSINOPHILS ABSOLUTE COUNT (BEAKER) (test 0.00 K/ L 0.04-0.36 ghta=414) BASOPHILS ABSOLUTE COUNT (BEAKER) (test 0.03 K/ L 0.01-0.08 blqk=909) IMMATURE GRANULOCYTES-RELATIVE PERCENT (BEAKER) 1 % 0-1 (test zcji=4708) RAD, CHEST, 1 VIEW, NON [id number] 03:01:00Reason for exam:->ETT verficiationShould this be performed [...] MDReport Verified Date/Time: 2016 03:01:35 Reading Location: [address] Reading Room TROPONIN [id number] 02:55:00 Test Item Value Reference Range Comments TROPONIN I (BEAKER) (test touo=398) 0.31 ng/mL 0.00-0.03 Effective 01/24/2014: Reference Range [...] and persistent tachyarrhythmia.CREATINE KINASE (CK), TOTAL AND [id number] 02:36:00 Test Item Value Reference Range Comments CREATINE KINASE TOTAL (BEAKER) (test azqb=316) 260 U/L 29-200 CREATINE KINASE-MB (BEAKER) (test jzry=991) 4.5 ng/mL 0.0-6.6 CREATINE KINASE-MB INDEX (BEAKER) (test gitj=492) 1.7 % Effective 01/24/2014: CK-MB Reference Range ChangeNew: 0.0-6.6 Previous: 0.0- 4.9CK-MB Reference Range:<6.7 Normal6.7-10.0 Borderline>10.0 AbnormalPOCT-GLUCOSE [id number] 00:18:00 Test Item Value Reference Range Comments POC-GLUCOSE METER (BEAKER) 103 mg/dL 70-110 TESTED AT [address] (test mtlw=1053) [place] [address] BASIC METABOLIC [id number] 18:32:00 Test Item Value Reference Range Comments SODIUM (BEAKER) (test 142 meq/L 136-145 iejy=878) POTASSIUM (BEAKER) (test 3.0 meq/L 3.5-5.1 xrfp=483) CHLORIDE (BEAKER) (test 107 meq/L 98-107 ulzc=775) CO2 (BEAKER) (test 22 meq/L 22-29 eyrj=975) BLOOD UREA NITROGEN 14 mg/dL 7-21 (BEAKER) (test wqli=885) CREATININE (BEAKER) (test 0.97 mg/dL 0.57-1.25 tzrv=806) GLUCOSE RANDOM (BEAKER) 119 mg/dL 70-105 (test pzfm=139) CALCIUM (BEAKER) (test 8.9 mg/dL 8.4-10.2 acgm=819) EGFR (BEAKER) (test mL/min/1.73 sq m INSUFFICIENT CLINICAL DATA uhmn=0016) TO CALCULATE ESTIMATED GFR. [id number] 18:23:00 Test Item Value Reference Range Comments PHOSPHORUS (BEAKER) (test kboa=728) 1.6 mg/dL 2.3-4.7 [id number] 18:23:00 Test Item Value Reference Range Comments MAGNESIUM (BEAKER) (test xetl=688) 1.6 mg/dL 1.6-2.6 POCT-GLUCOSE [id number] 18:16:00 Test Item Value Reference Range Comments POC-GLUCOSE METER (BEAKER) 118 mg/dL 70-110 TESTED AT [address] (test daww=0181) [place] [address] TROPONIN [id number] 16:10:00 Test Item Value Reference Range Comments TROPONIN I (BEAKER) (test vqhq=463) 0.27 ng/mL 0.00-0.03 Effective 01/24/2014: Reference Range [...] and persistent tachyarrhythmia.CREATINE KINASE (CK), TOTAL AND [id number] 15:44:00 Test Item Value Reference Range Comments CREATINE KINASE TOTAL (BEAKER) (test rglm=897) 117 U/L 29-200 CREATINE KINASE-MB (BEAKER) (test nunw=203) 5.0 ng/mL 0.0-6.6 CREATINE KINASE-MB INDEX (BEAKER) (test rvks=880) 4.3 % Effective 01/24/2014: CK-MB Reference Range ChangeNew: 0.0-6.6 Previous: 0.0- 4.9CK-MB Reference Range:<6.7 Normal6.7-10.0 Borderline>10.0 AbnormalURINALYSIS W/ [id number] 15:35:00 Test Item Value Reference Range Comments COLOR (BEAKER) (test wjzt=270) Light Yellow CLARITY (BEAKER) (test jbqf=064) Clear SPECIFIC GRAVITY UA (BEAKER) (test xsss=172) 1.006 1.001-1.035 PH UA (BEAKER) (test hzfx=465) 7.5 5.0-8.0 PROTEIN UA (BEAKER) (test xenp=713) Negative Negative GLUCOSE UA (BEAKER) (test dhso=338) Negative Negative KETONES UA (BEAKER) (test beyf=877) Negative Negative BILIRUBIN UA (BEAKER) (test vzdc=035) Negative Negative BLOOD UA (BEAKER) (test wfjz=075) Trace Negative NITRITE UA (BEAKER) (test gfij=799) Negative Negative LEUKOCYTE ESTERASE UA (BEAKER) (test nefp=815) Negative Negative UROBILINOGEN UA (BEAKER) (test suzo=550) 0.2 mg/dL 0.2-1.0 RBC UA (BEAKER) (test vlvk=756) 2 /HPF WBC UA (BEAKER) (test rthb=665) 2 /HPF BACTERIA (BEAKER) (test ktsm=248) Rare SQUAMOUS EPITHELIAL (BEAKER) (test xiyo=138) 1 /HPF SOURCE(BEAKER) (test wotc=2852) Urine, [place] HEPATIC FUNCTION [id number] 15:06:00 Test Item Value Reference Range Comments TOTAL PROTEIN (BEAKER) (test ddam=748) 7.4 gm/dL 6.0-8.3 ALBUMIN (BEAKER) (test efav=9354) 3.6 g/dL 3.5-5.0 BILIRUBIN TOTAL (BEAKER) (test zzpb=410) 0.3 mg/dL 0.2-1.2 BILIRUBIN DIRECT (BEAKER) (test ajwh=537) 0.2 mg/dL 0.1-0.5 ALKALINE PHOSPHATASE (BEAKER) (test loti=259) 97 U/L 40-150 AST (SGOT) (BEAKER) (test okbt=219) 20 U/L 5-34 ALT (SGPT) (BEAKER) (test subq=680) 8 U/L 6-55 PROTHROMBIN TIME/[id number] 14:53:00 Test Item Value Reference Range Comments PROTIME (BEAKER) (test hywp=595) 17.0 seconds 11.7-14.7 INR (BEAKER) (test siuw=369) 1.4 <=5.9 RECOMMENDED COUMADIN/WARFARIN INR THERAPY RANGESSTANDARD DOSE: 2.0 - 3.0 Includes: PROPHYLAXIS forvenous thrombosis, systemic embolization; TREATMENT for venous thrombosis and/or pulmonary embolus.HIGH RISK: Target INR is 2.5-3.5 for patients with mechanical heart valves.[id number] 14:53:00 Test Item Value Reference Range Comments PARTIAL THROMBOPLASTIN TIME (BEAKER) (test 33.9 seconds 22.5-36.0 wvok=334) BLOOD GAS, [id number] 14:44:00 Test Item Value Reference Range Comments PH ARTERIAL (BEAKER) (test qqso=475) 7.36 7.35-7.45 PCO2 ARTERIAL (BEAKER) (test qpcg=704) 46 mmHg 35-45 PO2 ARTERIAL (BEAKER) (test sfxq=516) 51 mmHg 80-90 O2 SATURATION ARTERIAL (BEAKER) (test wdgj=682) 84.2 % 96.0-97.0 HCO3 ARTERIAL (BEAKER) (test crka=675) 25 mmol/L 21-29 BASE EXCESS ARTERIAL (BEAKER) (test jtph=953) -0.6 mmol/L -2.0-3.0 PATIENT TEMPERATURE (BEAKER) (test uqfu=2615) 37.0 C FIO2 (BEAKER) (test atht=2777) 40.0 %
[2018-05-14] MEDS ORDERED: NA CHLORIDE 0.9% 2,000 ML ONE (11:34)
--- NOTE | 2018-05-14 11:37 | RAD REPORT ---
EXAM DESCRIPTION: CT - Head Brain Wo Cont - 05/14/2018 11:28 am CLINICAL HISTORY: MENTAL STATUS CHANGE Headache, drowsiness COMPARISON: Head Brain Wo Cont dated 04/07/2018; Head Brain Wo Cont dated 03/10/2017 TECHNIQUE: All CT scans are performed using dose optimization technique as appropriate and may inclu de automated exposure control or mA/KV adjustment according to patient size. FINDINGS: No intracranial hemorrhage, hydrocephalus or extra-axial fluid collection.Advanced general ized brain atrophy is present with advanced periventricular and deep white matter chronic microvascul ar ischemic changes.No areas of brain edema or evidence of midline shift. The paranasal sinuses and mastoids are clear. The calvarium is intact. Mild vertebral atherosclerosis . IMPRESSION: No acute intracranial abnormality.
[2018-05-14] MEDS ORDERED: CEFTRIAXONE/SWI 1gm 1 GM/10 ML SYR ONE (11:40)
[2018-05-14 12:27] LABS: Protime INR 1.26
[2018-05-14 12:37] LABS: ALT/SGPT 18 U/L (12-78); AST/SGOT 22 U/L (15-37); Albumin 2.7 g/dL (3.4-5.0); Alkaline Phosphatase 131 U/L (45-117); BUN Blood Urea Nitrogen 12 mg/dL (7-18); Bicarbonate 29 mmol/L (21-32); Bilirubin Direct 0.1 mg/dL (0-0.2); Bilirubin Total 0.3 mg/dL (0.2-1.0); CKMB Creatine Kinase MB 3.8 ng/mL (0.3-3.6); Creatine Phosphokinase 166 U/L (26-192); Glucose Level 120 mg/dL (74-106); Lipase 84 U/L (73-393); Potassium 3.6 mmol/L (3.5-5.1); Protein, Total 7.2 g/dL (6.4-8.2); Sodium Level 143 mmol/L (136-145); Troponin (Emerg Dept Use Only) < 0.02 ng/mL (0.0-0.045)
[2018-05-14 12:42] LABS: Absolute Lymphocytes (CBC) 1.7 K/uL (0.7-4.9); Absolute Monocytes 0.7 K/uL (0.1-1.3); Absolute Neutrophil 5.3 K/uL (1.8-8.0); Eosinophils % 1.2 % (0-4.4); Hematocrit 31.1 % (36.0-45.0); Lymphocytes % 21.3 % (15.3-44.8); MPV 7.5 fL (7.6-11.3); RBC Red Blood Cell Count 3.28 M/uL (3.86-4.86)
[2018-05-14 12:43] LABS: Urine Blood 1+ (NEG); Urine Glucose NEGATIVE (NEG); Urine Protein NEGATIVE (NEG); Urine Specific Gravity 1.015 (1.005-1.030); Urine pH 7.5 (5.0-7.0)
[2018-05-14 12:46] LABS: Urine Bacteria <20 /HPF (<20); Urine Culture Reflex Order REFLEXED; Urine RBC <5 /HPF (NONE SEEN)
--- NOTE | 2018-05-14 13:14 | RAD REPORT ---
EXAM DESCRIPTION: RAD - Chest Single View - 05/14/2018 1:04 pm CLINICAL HISTORY: AMS Chest pain. COMPARISON: Chest Pa And Lat (2 Views) dated 05/03/2018; Chest Single View dated 04/07/2018; Chest Pa And Lat (2 Views) dated 06/19/2017; Chest Single View dated 03/10/2017 FINDINGS: Portable technique limits examination quality. The lungs are underinflated resulting in vascular crowding. The heart is mildly enlarged in size with a tortuous atherosclerotic thoracic aorta. Degenerative changes are present left shoulder. IMPRESSION: Underinflated lungs.
--- NOTE | 2018-05-14 14:23 | ER ---
Nurse's Notes [facility] Name: Lizette Evans Age: 87 yrs Sex: Female : 1930 Arrival Date: 05/14/2018 Time: 10:54 Bed 18 Private MD: Diagnosis: Altered mental status, unspecified;Urinary tract infection, site not specified Presentation: 05/14 10:53 Presenting complaint: EMS states: called out for AMS, diagnosed with UTI and pneumonia em and was given antibiotics (Cipro) x 1 week, pt responsive to loud verbal stimuli, unable to talk, daughter reports pt is normally A\\T\\O 4, but this morning pt stated she was hot and began to "babble" when talking, EMS reported HR 140's initially, given 1 L 0.9% NS BODY MAKER, HR improved to 70's, respirations even and unlabored, mild wheezing noted to garry. lungs. 10:53 Transition of care: patient was not received from another setting of care. Onset of em symptoms was May 14, 2018. Risk Assessment: Do you want to hurt yourself or someone else? Unable to obtain. Initial Sepsis Screen: Does the patient meet any 2 criteria? RR > 20 per min. Temp <36.0*C (96.8*F)) or > 38.3*C (100.9*F). Altered Mental Status. Initial Sepsis Screen: Does the patient have a suspected source of infection? Yes: Productive cough/pneumonia. Care prior to arrival: Medication(s) given: Normal saline infusion, 1000 mL. 10:53 Method Of Arrival: [facility] em 10:54 Acuity: ERICKA 2 ph Triage Assessment: 11:15 General: Appears comfortable, Behavior is unresponsive. Pain: Unable to use pain scale. em Patient is unresponsive. Historical: - Allergies: 11:15 PENICILLINS; em - Home Meds: 11:15 Risperdal 0.5 mg Oral tab 1 tab nightly [Active]; warfarin 1 mg Oral tab 2 tabs once em daily [Active]; Cipro 500 mg Oral tab 1 tab every 12 hours [Active]; escitalopram oxalate 5 mg Oral tab 1 tab once daily [Active]; levetiracetam 750 mg Oral tab 1 tab every morning [Active]; losartan 50 mg Oral tab 1 tab nightly [Active]; amlodipine 10 mg tab 1 tab once daily [Active]; Lamictal 150 mg Oral tab 2 times per day [Active]; tolterodine 2 mg Oral tab 1 tab 2 times per day [Active]; allopurinol 100 mg Oral tab 2 tabs once daily [Active]; buspirone 10 mg Oral tab 1 tab 2 times per day [Active]; atenolol 50 mg Oral tab 1 tab once daily [Active]; furosemide 40 mg Oral tab 1.5 tab once daily [Active]; galantamine 4 mg oral tab 1 tab 2 times per day [Active]; levetiracetam 750 mg Oral tab 0.5 tab every evening [Active]; - PMHx: 11:15 CVA; DVT; Hypertension; Seizures; TIA; ADD/ADHD; em - Immunization history:: Adult Immunizations unknown. - Social history:: Smoking status: unknown. - Ebola Screening: : Patient negative for fever greater than or equal to 101.5 degrees Fahrenheit, and additional compatible Ebola Virus Disease symptoms Patient denies exposure to infectious person Patient denies travel to an Ebola-affected area in the 21 days before illness onset No symptoms or risks identified at this time. Screenin:00 Abuse screen: no apparent signs noted. Nutritional screening: No deficits noted. em Tuberculosis screening: No symptoms or risk factors identified. Fall Risk Fall in past 12 months (25 points). Secondary diagnosis (15 points) TIA, impaired mobility, Ambulatory Aid- None/Bed Rest/Nurse Assist (0 pts). Gait- Impaired (20 pts.). Mental Status- Overestimates/Forgets Limitations (15 pts.). Total Vega Fall Scale indicates High Risk Score (45 or more points). Side Rails Up X 2 Placed Close to Nursing Station Family Present and informed to notify staff if the need to leave the bedside. Assessment: 11:00 General: Appears comfortable, Behavior is calm, listless, quiet. Pain: Denies pain. em Neuro: Level of Consciousness is listless, Pupils are sluggish, responsive to loud stimuli, unable to preform neuro exam. Cardiovascular: Capillary refill < 3 seconds Patient's skin is warm and dry. Respiratory: Airway is patent Respiratory effort is even, unlabored, Respiratory pattern is regular, symmetrical, Breath sounds are clear bilaterally. GI: Abdomen is obese. Derm: Skin is intact, Skin is pink, warm \\T\\ dry. 11:15 Reassessment: I agree with previous assessment. hb 12:28 Reassessment: Patient appears in no apparent distress at this time. Patient and/or ph family updated on plan of care and expected duration. Pain level reassessed. Pt resting quietly w/ eyes closed, straight cathed to obtain urine sample, tolerated well, pt cleaned of urinary incontinence and clean brief in place, family at bedside. 13:30 Reassessment: Patient appears in no apparent distress at this time. Patient and/or em family updated on plan of care and expected duration. Pain level reassessed. Patient is alert, oriented x 3, equal unlabored respirations, skin warm/dry/pink. Patient denies pain at this time. Patient states symptoms have improved. 14:30 Reassessment: Patient appears in no apparent distress at this time. Patient and/or em family updated on plan of care and expected duration. Pain level reassessed. Patient is alert, oriented x 3, equal unlabored respirations, skin warm/dry/pink. Patient denies pain at this time. Patient states feeling better. Patient states symptoms have improved. 15:38 Reassessment: Patient appears in no apparent distress at this time. Patient and/or em family updated on plan of care and expected duration. Pain level reassessed. Patient is alert, oriented x 3, equal unlabored respirations, skin warm/dry/pink. family at bedside, pending room assignment Patient states feeling better. Patient states symptoms have improved. Vital Signs: 11:19 BP 130 / 64; Pulse 71; Resp 20; Temp 99.8(O); Pulse Ox 95% on R/A; em 11:24 Weight 99.79 kg; em 12:29 BP 92 / 80; Pulse 67; Resp 20; Pulse Ox 95% on R/A; ph 13:30 BP 118 / 91; Pulse 66; Resp 18; Pulse Ox 95% on R/A; em 14:30 BP 113 / 58; Pulse 68; Resp 18; Pulse Ox 96% on R/A; em ED Course: 10:54 Patient arrived in ED. ph 10:54 Triage completed. ph 10:55 Gabe Matt NP is PHCP. pm1 10:55 Rk Dawson MD is Attending Physician. pm1 10:57 Wiley, Angelo, BLACK TOPPER is Primary Nurse. em 11:10 Patient has correct armband on for positive identification. Placed in gown. Bed in low em position. Call light in reach. Side rails up X2. Adult w/ patient. graphics coordinator on. Pulse ox on. NIBP on. 11:19 Arm band placed on. em 11:19 Maintain EMS IV. Dressing intact. Good blood return noted. Site clean \\T\\ dry. Gauge \\T\\ em site: 20. 11:29 CT completed. Patient tolerated procedure well. Patient moved to CT via stretcher. vr Patient moved back from CT. 11:29 CT Head Brain wo Cont In Process Unspecified. EDMS 12:27 Straight cath inserted, using sterile technique, 16 Fr. Specimen obtained. Returned ph clear yellow urine. Patient tolerated well. 13:02 X-ray completed. Portable x-ray completed in exam room. Patient tolerated procedure jb2 well. 13:04 Chest Single View XRAY In Process Unspecified. EDMS 14:19 Rk Dawson MD is Hospitalizing Provider. pm1 14:19 Buck Vegas MD is Hospitalizing Provider. pm1 16:30 No provider procedures requiring assistance completed. Patient admitted, IV remains in em place. Administered Medications: 11:50 Drug: NS 0.9% (30 ml/kg) 30 ml/kg Route: IV; Rate: bolus; Site: right forearm; em 15:41 Follow up: IV Status: Completed infusion; IV Intake: 3000ml em 12:27 Drug: Rocephin 1 grams Route: IV; Rate: calculated rate; Site: right forearm; ph 13:00 Follow up: Response: No adverse reaction; IV Status: Completed infusion; IV Intake: 10mlem Point of Care Testing: Blood Glucose: 11:30 Blood Glucose: 139 mg/dL; em Ranges: Intake: 13:00 IV: 10ml; Total: 10ml. em 15:41 IV: 3000ml; Total: 3010ml. em Outcome: 14:22 Decision to Hospitalize by Provider. pm1 16:30 Admitted to Med/surg accompanied by tech, family with patient, via stretcher, room 211, em with chart, Report called to ALIYA Burroughs 16:30 Condition: good 16:30 Instructed on the need for admit, Demonstrated understanding of instructions. 16:33 Patient left the ED. em Signatures: Dispatcher [facility] Doni Hong angi2 Angelo Wiley, BLACK TOPPER BLACK TOPPER Ale Thomas Patricia, RN RN Gabe Matt, NATASHA [employer] SALES REPRESENTATIVE pm1 Veronica Coffey RN RN Corrections: (The following items were deleted from the chart) 15:40 11:00 Neuro: Level of Consciousness is listless, Pupils are constricted, responsive to em loud stimuli, unable to preform neuro exam. em 16:33 16:30 Admitted to Med/surg accompanied by tech, family with patient, via stretcher, em room 211, em 16:33 16:30 Instructed on the need for admit, Demonstrated understanding of instructions, em em
--- NOTE | 2018-05-14 14:23 | EDPHYS ---
Physician Documentation [facility] Name: Lizette Evans Age: 87 yrs Sex: Female : 1930 Arrival Date: 05/14/2018 Time: 10:54 Bed 18 Private MD: ED Physician Rk Dawson HPI: 05/14 12:00 This 87 yrs old Black Female presents to ER via EMS with complaints of Altered Mental pm1 Status. 12:00 The patient presents with decreased mental status, decreased responsiveness. Onset: The pm1 symptoms/episode began/occurred this morning, at 07:30. Possible causes: seizure, the patient has a known seizure history. Associated signs and symptoms: The patient has no apparent associated signs or symptoms. Current symptoms: In the emergency department the patient's symptoms are unchanged from the initial presentation. Patient's baseline: Neuro: orientated to person, place, Motor: no deficits, inabilty to walk since March 2018, Ambulation: unable to walk, Speech: normal, The patient has a previous history of CVA, TIA. The patient has experienced a previous episode, At the beginning of this year. The patient has been recently seen by a physician: the patient's primary care provider, given a prescription of Cipro which she is currently taking for pneumonia and UTI. Historical: - Allergies: 11:15 PENICILLINS; em - Home Meds: 11:15 Risperdal 0.5 mg Oral tab 1 tab nightly [Active]; warfarin 1 mg Oral tab 2 tabs once em daily [Active]; Cipro 500 mg Oral tab 1 tab every 12 hours [Active]; escitalopram oxalate 5 mg Oral tab 1 tab once daily [Active]; levetiracetam 750 mg Oral tab 1 tab every morning [Active]; losartan 50 mg Oral tab 1 tab nightly [Active]; amlodipine 10 mg tab 1 tab once daily [Active]; Lamictal 150 mg Oral tab 2 times per day [Active]; tolterodine 2 mg Oral tab 1 tab 2 times per day [Active]; allopurinol 100 mg Oral tab 2 tabs once daily [Active]; buspirone 10 mg Oral tab 1 tab 2 times per day [Active]; atenolol 50 mg Oral tab 1 tab once daily [Active]; furosemide 40 mg Oral tab 1.5 tab once daily [Active]; galantamine 4 mg oral tab 1 tab 2 times per day [Active]; levetiracetam 750 mg Oral tab 0.5 tab every evening [Active]; - PMHx: 11:15 CVA; DVT; Hypertension; Seizures; TIA; ADD/ADHD; em - Immunization history:: Adult Immunizations unknown. - Social history:: Smoking status: unknown. - Ebola Screening: : Patient negative for fever greater than or equal to 101.5 degrees Fahrenheit, and additional compatible Ebola Virus Disease symptoms Patient denies exposure to infectious person Patient denies travel to an Ebola-affected area in the 21 days before illness onset No symptoms or risks identified at this time. ROS: 12:00 Constitutional: Negative for fever, chills, and weight loss, Eyes: Negative for injury, pm1 pain, redness, and discharge, ENT: Negative for injury, pain, and discharge, Neck: Negative for injury, pain, and swelling, Cardiovascular: Negative for chest pain, palpitations, and edema, Respiratory: Negative for shortness of breath, cough, wheezing, and pleuritic chest pain, Abdomen/GI: Negative for abdominal pain, nausea, vomiting, diarrhea, and constipation, Back: Negative for injury and pain, : Negative for injury, bleeding, discharge, and swelling, MS/Extremity: Negative for injury and deformity, Skin: Negative for injury, rash, and discoloration. 12:00 Neuro: Positive for altered mental status. 12:00 Unable to obtain ROS due to altered mental status, obtained from daughter that lives with her. Exam: 12:00 Constitutional: This is a well developed, well nourished patient who is awake, alert, pm1 and in no acute distress. Head/Face: Normocephalic, atraumatic. Eyes: Pupils equal round and reactive to light, extra-ocular motions intact. Lids and lashes normal. Conjunctiva and sclera are non-icteric and not injected. Cornea within normal limits. Periorbital areas with no swelling, redness, or edema. ENT: Nares patent. No nasal discharge, no septal abnormalities noted. Tympanic membranes are normal and external auditory canals are clear. Oropharynx with no redness, swelling, or masses, exudates, or evidence of obstruction, uvula midline. Mucous membranes moist. Neck: Trachea midline, no thyromegaly or masses palpated, and no cervical lymphadenopathy. Supple, full range of motion without nuchal rigidity, or vertebral point tenderness. No Meningismus. Chest/axilla: Normal chest wall appearance and motion. Nontender with no deformity. No lesions are appreciated. Cardiovascular: Regular rate and rhythm with a normal S1 and S2. No gallops, murmurs, or rubs. Normal PMI, no JVD. No pulse deficits. Respiratory: Lungs have equal breath sounds bilaterally, clear to auscultation and percussion. No rales, rhonchi or wheezes noted. No increased work of breathing, no retractions or nasal flaring. Abdomen/GI: Soft, non-tender, with normal bowel sounds. No distension or tympany. No guarding or rebound. No evidence of tenderness throughout. Back: No spinal tenderness. No costovertebral tenderness. Full range of motion. Skin: Warm, dry with normal turgor. Normal color with no rashes, no lesions, and no evidence of cellulitis. MS/ Extremity: Pulses equal, no cyanosis. Neurovascular intact. Full, normal range of motion. 12:00 Neuro: Abnormal movements: resting tremor, is located in the right hand, left hand, right foot and left foot. Vital Signs: 11:19 BP 130 / 64; Pulse 71; Resp 20; Temp 99.8(O); Pulse Ox 95% on R/A; em 11:24 Weight 99.79 kg; em 12:29 BP 92 / 80; Pulse 67; Resp 20; Pulse Ox 95% on R/A; ph 13:30 BP 118 / 91; Pulse 66; Resp 18; Pulse Ox 95% on R/A; em 14:30 BP 113 / 58; Pulse 68; Resp 18; Pulse Ox 96% on R/A; em MDM: 10:57 Patient medically screened. pm1 14:18 Data reviewed: vital signs. Data interpreted: Pulse oximetry: on room air is 95 %. pm1 Interpretation: normal. Counseling: I had a detailed discussion with the patient and/or guardian regarding: the historical points, exam findings, and any diagnostic results supporting the discharge/admit diagnosis, lab results, radiology results, the need for further work-up and treatment in the hospital. 05/14 10:55 Order name: Basic Metabolic Panel ph 05/14 10:55 Order name: Blood Culture Adult (2) ph 05/14 10:55 Order name: CBC with Diff ph 05/14 10:55 Order name: Ckmb ph 05/14 10:55 Order name: CPK; Complete Time: 12:48 ph 05/14 10:55 Order name: Lactate; Complete Time: 12:48 ph 05/14 10:55 Order name: LFT's; Complete Time: 12:48 ph 05/14 10:55 Order name: Lipase; Complete Time: 12:48 ph 05/14 10:55 Order name: Procalcitonin; Complete Time: 13:19 ph 05/14 10:55 Order name: Protime (+inr); Complete Time: 12:48 ph 05/14 10:55 Order name: Ptt, Activated; Complete Time: 12:48 ph 05/14 10:55 Order name: Troponin (emerg Dept Use Only); Complete Time: 12:48 ph 05/14 10:55 Order name: Urine Microscopic Only; Complete Time: 12:48 ph 05/14 10:56 Order name: Basic Metabolic Panel; Complete Time: 12:48 EDMS 05/14 10:55 Order name: Chest Single View XRAY; Complete Time: 13:19 ph 05/14 10:55 Order name: Accucheck; Complete Time: 12:04 ph 05/14 10:55 Order name: Cardiac monitoring; Complete Time: 12:05 ph 05/14 10:55 Order name: EKG - Nurse/Tech; Complete Time: 12:05 ph 05/14 10:55 Order name: IV Saline Lock - Large Bore; Complete Time: 12:05 ph 05/14 10:55 Order name: Labs collected and sent; Complete Time: 12:05 ph 05/14 10:55 Order name: O2 Per Protocol; Complete Time: 12:05 ph 05/14 10:55 Order name: O2 Sat Monitoring; Complete Time: 11:25 ph 05/14 10:56 Order name: Blood Culture EDMS 05/14 10:56 Order name: CBC with Automated Diff; Complete Time: 12:48 EDMS 05/14 10:56 Order name: CKMB Creatine Kinase MB; Complete Time: 12:48 EDMS 05/14 10:58 Order name: CT Head Brain wo Cont; Complete Time: 11:43 pm1 05/14 12:34 Order name: Urine Dipstick--Ancillary (enter results); Complete Time: 12:48 eb 05/14 12:47 Order name: Urine Culture [facility] 05/14 10:55 Order name: Urine Dipstick-Ancillary (obtain specimen); Complete Time: 12:34 ph 05/14 10:58 Order name: Straight Cath - Urine; Complete Time: 12:26 pm1 Administered Medications: 11:50 Drug: NS 0.9% (30 ml/kg) 30 ml/kg Route: IV; Rate: bolus; Site: right forearm; em 15:41 Follow up: IV Status: Completed infusion; IV Intake: 3000ml em 12:27 Drug: Rocephin 1 grams Route: IV; Rate: calculated rate; Site: right forearm; ph 13:00 Follow up: Response: No adverse reaction; IV Status: Completed infusion; IV Intake: 10mlem Point of Care Testing: Blood Glucose: 11:30 Blood Glucose: 139 mg/dL; em Ranges: Critical Glucose Levels:Adult <50 mg/dl or >400 mg/dl <40 mg/dl or >180 mg/dl Disposition: 05/14/18 14:22 Hospitalization ordered by Buck Vegas for Inpatient Admission. Preliminary diagnosis are Altered mental status, unspecified, Urinary tract infection, site not specified. - Bed requested for Telemetry/MedSurg (Inpatient). - Status is Inpatient Admission. em - Condition is Stable. - Problem is new. - Symptoms have improved. UTI on Admission? Yes Addendum: 05/17/2018 06:58 Co-signature as Attending Physician, Rk Dawson MD I agree with the assessment and k dr plan of care. Signatures: Dispatcher [employer] [facility] Rk Dawson MD MD [facility] Angelo Wiley, POSTAL CARRIER POSTAL CARRIER Cindy Pan RN RN ph Gabe Matt, BRASS FINISHER BRASS FINISHER pm1 Mariana Hand Corrections: (The following items were deleted from the chart) 05/14 14:47 14:22 Hospitalization Ordered by Buck Vegas MD for Inpatient Admission. Preliminary eb diagnosis is Altered mental status, unspecified; Urinary tract infection, site not specified. Bed requested for Telemetry/MedSurg (Inpatient). Status is Inpatient Admission. Condition is Stable. Problem is new. Symptoms have improved. UTI on Admission? Yes. pm1 15:49 14:47 05/14/2018 14:22 Hospitalization Ordered by Buck Vegas MD for Inpatient eb Admission. Preliminary diagnosis is Altered mental status, unspecified; Urinary tract infection, site not specified. Bed requested for Telemetry/MedSurg (Inpatient). Status is Inpatient Admission. Condition is Stable. Problem is new. Symptoms have improved. UTI on Admission? Yes. eb 16:33 15:49 05/14/2018 14:22 Hospitalization Ordered by Buck Vegas MD for Inpatient em Admission. Preliminary diagnosis is Altered mental status, unspecified; Urinary tract infection, site not specified. Bed requested for Telemetry/MedSurg (Inpatient). Status is Inpatient Admission. Condition is Stable. Problem is new. Symptoms have improved. UTI on Admission? Yes. eb
[2018-05-14] MEDS ORDERED: ONDANSETRON 4 MG/2 ML VIAL IV PRN (16:32)
[2018-05-14] MEDS ORDERED: ACETAMINOPHEN 500 MG TAB PO PRN (16:32)
[2018-05-14] MEDS ORDERED: CEFTRIAXONE/SWI 1gm 1 GM/10 ML SYR IVP SCH (17:00)
[2018-05-14] MEDS ORDERED: BISACODYL 10 MG RECTAL SUPP PR PRN (17:26)
[2018-05-14] MEDS ORDERED: POLYETHYL GLY 3350 17 GM/DOSE PO PRN (17:26)
[2018-05-14] MEDS: NA CHLORIDE 0.9% 1,000 ML IV SCH (17:58)
[2018-05-14] MEDS: WARFARIN SODIUM 5 MG TAB PO SCH (17:59)
[2018-05-14] MEDS ORDERED: TOLTERODINE TARTRATE PO SCH (21:00)
[2018-05-14] MEDS ORDERED: LEVETIRACETAM PO SCH (21:00)
[2018-05-14] MEDS ORDERED: BUSPIRONE HCL PO SCH (21:00)
[2018-05-14] MEDS ORDERED: RISPERIDONE PO SCH (21:00)
[2018-05-14] MEDS: lamoTRIgine 150 MG TAB PO SCH (21:43)
[2018-05-14] MEDS: BUSPIRONE HCL 5 MG TABLET PO SCH (21:43)
[2018-05-14] MEDS: LOSARTAN POTASSIUM 50 MG TABLET PO SCH (21:43)
[2018-05-14] MEDS: GALANTAMINE 4 MG TAB PO SCH (21:44)
[2018-05-14] MEDS: RISPERIDONE 0.25 MG TABLET PO SCH (21:54)
[2018-05-15] MEDS: NA CHLORIDE 0.9% 1,000 ML IV SCH ×2 (03:06→12:32)
--- NOTE | 2018-05-15 03:50 | HP ---
Date of Admission: 05/14/2018 Chief Complaint: Altered mental status. Code Status: Full code. Primary Care Physician: Dr. Hightower. Consultants: Dr. Baxter with Neurology. History Of Present Illness: The patient is an 87-year-old female with past medical history of hypert ension, chronic kidney disease, asthma, seizure disorder, and history of DVT, on Coumadin, who was di scharged from the hospital in early April with sepsis and UTI. The patient was also found to have a thyroid nodule, which was biopsied using FNA. The patient had finished a course of antibiotics up on discharge. Since the past few days, the patient has not been herself. On the day of admission, [facility] health nurse noticed that the patient was altered, not responsive, and seemed to have had a seizu re episode with bladder incontinence. The patient does have a history of seizures. The patient's sy mptoms are constant, moderate, and progressively worsening. Therefore, she was brought into the ER f or further evaluation. When seen in the ER, she was awake, alert, and more responsive after initial resuscitation with 1 L fluids. She was given IV antibiotics as well. Past Medical History: Hypertension, chronic kidney disease, coronary artery disease status post sten t, asthma, seasonal allergies, seizure disorder, and history of DVT, on Coumadin. Surgical History: Cardiac stents. Allergies: TO PENICILLIN, UNKNOWN. Medications: List reviewed. Social History: The patient denies any tobacco use, alcohol use, or illicit drug use. The patient l mackenzie at home. Has good social support. Does have home health care coming out to her house. The pat ient since April has now become nonambulatory and has difficulty feeding herself. Family History: Mother has diabetes. Brother has seizure disorder. Review of Systems: Ten-point system review negative except as per HPI. Physical Examination: Vital Signs: Temperature 99.8, heart rate 71, blood pressure 130/64, respirations 20, and O2 95% on room air. General: Awake, alert, and oriented x3. Elderly female, obese, ill-appearing. HEENT: Normocephalic, atraumatic. PERRLA. EOMI. Dry mucous membranes. Oropharynx is clear. Conj unctivae anicteric. Poor dentition. Neck: Supple. No JVD. Trachea midline. CV: S1, S2. Regular rate and rhythm. Peripheral pulses present. Respiratory: Diminished breath sounds at the bases, otherwise moving air well. No stridor. No use of accessory muscles. Gastrointestinal: Abdomen is soft, nontender, and nondistended. Positive bowel sounds. No guarding or rigidity. Extremities: No clubbing, cyanosis, or edema. Neuro: Cranial nerves 2-12 intact grossly. The patient does have resting pill-rolling tremor. Musc le strength is symmetric in bilateral upper and lower extremities. Sensation intact to light touch. Skin: No rashes. Normal skin turgor. Psych: Mood is depressed. Affect is flat. Insight and judgment are fair. Laboratory Data: Sodium 143, potassium 3.6, chloride 107, CO2 29, BUN 12, creatinine 1.41, glucose 1 28, lactate 1.2, and calcium 8.7. Troponin less than 0.02. Procalcitonin less than 0.05. Lactate 1 .2. INR 1.26. WBC 7.9, H and H 10.1 and 31.1, and platelets 301. Keppra levels ordered. UA shows 3+ leukocyte esterase, negative nitrite, 20-50 WBC, less than 20 bacteria, and 10-20 squamous epithel ial cells. Chest x-ray shows underinflated lungs with vascular crowding, tortuous thoracic aorta, an d degenerative changes in the left shoulder. Head CT scan shows no acute intracranial abnormality. Assessment And Plan: An 87-year-old female with: 1.Acute metabolic encephalopathy, unclear etiology, may be related to seizure disorder versus due to UTI. Dr. Baxter is patient's neurologist, who has been consulted. We will treat for UTI. We will o rder EEG to rule out seizure episode. 2.History of seizures. We will continue on Keppra. We will check Keppra level. Seizure precaution s. We will order EEG. Neurology consultation. 3.Essential hypertension. We will resume home medications. 4.Chronic kidney disease. We will hold Lasix and allopurinol for now. Baseline seems to be close t o 1. Chronic kidney disease stage 2. 5.Intermittent asthma. We will continue ipratropium. 6.History of deep venous thrombosis, on Coumadin. INR is subtherapeutic. We will increase dose to 5 mg and check daily INR. 7.Coronary artery disease, status post stent, stable. 8.Obesity, BMI 35.5. 9.DVT prophylaxis. The patient is already on Coumadin. Admit the patient to Med-Surg, place as observation. Follow up with Dr. Baxter's recommendations. Guerrero goldenw up with EEG. /ALEXX Voice ID: [id number]
[2018-05-15 06:52] LABS: Absolute Lymphocytes (CBC) 1.5 K/uL (0.7-4.9); Absolute Monocytes 0.6 K/uL (0.1-1.3); Absolute Neutrophil 4.2 K/uL (1.8-8.0); Eosinophils % 2.1 % (0-4.4); Hematocrit 29.1 % (36.0-45.0); Lymphocytes % 23.4 % (15.3-44.8); MPV 7.1 fL (7.6-11.3); Monocytes % 8.5 % (3.3-12.3); Protime INR 1.38; RBC Red Blood Cell Count 3.05 M/uL (3.86-4.86)
[2018-05-15 07:13] LABS: Albumin 2.6 g/dL (3.4-5.0); Bilirubin Total 0.2 mg/dL (0.2-1.0); Potassium 3.4 mmol/L (3.5-5.1); Protein, Total 6.8 g/dL (6.4-8.2); Thyroid Stimulating Hormone 1.89 uIU/mL (0.360-3.740)
--- NOTE | 2018-05-15 07:18 | EKG ---
Test Date: 2018-05-14 Test Time: 11:13:15 Health Actuary: CLARIBEL MEASUREMENT RESULTS: Intervals: Rate: 71 HI: QRSD: 94 QT: 434 QTc: 471 [place]: P: HI: QRS: 3 T: 66 INTERPRETIVE STATEMENTS: Sinus rhythm Low voltage QRS Incomplete right bundle branch block Nonspecific T wave abnormality Prolonged QT Abnormal ECG Compared to ECG 04/07/2018 17:19:51 Low QRS voltage now present Prolonged QT interval now present Electronically Signed On 05-15-18 07:17:40 BUSINESS ANALYSIS CONSULTANT by Micheal Lama
[2018-05-15] MEDS: lamoTRIgine 150 MG TAB PO SCH ×2 (08:38→21:22)
[2018-05-15] MEDS: ATENOLOL 50 MG TAB PO SCH (08:39)
[2018-05-15] MEDS: CEFTRIAXONE/SWI 1gm 1 GM/10 ML SYR IVP SCH (08:39)
[2018-05-15] MEDS: AMLODIPINE 10 MG TAB PO SCH (08:39)
[2018-05-15] MEDS: GALANTAMINE 4 MG TAB PO SCH ×2 (08:39→21:21)
[2018-05-15] MEDS ORDERED: HOME MED 1 EA UNK (Escitalopram Oxalate [Lexapro] 5 MG) PO SCH (09:00)
[2018-05-15] MEDS ORDERED: FUROSEMIDE 40 MG TABLET PO SCH (09:00)
[2018-05-15] MEDS ORDERED: ALLOPURINOL 100 MG TAB PO SCH (09:00)
[2018-05-15] MEDS ORDERED: LEVETIRACETAM 750 MG PO SCH (09:00)
--- NOTE | 2018-05-15 12:54 | P.PN ---
Subjective Date of Service: 05/15/18 Patient seen and examined at bedside with RN. Chart reviewed. Case discussed with neurology at this time. No complaints to offer overnight. Doing well overall. Continues to have some tremors which is baseline for her at this time. Review of Systems 10-point ROS is otherwise unremarkable Physical Examination - Vital Signs Temperature: 97.9 F Blood Pressure: 152/70 Pulse: 79 Respirations: 17 Pulse Ox (%): 97 - Physical Exam General: Alert, In no apparent distress, Demented, Obese HEENT: Atraumatic, PERRLA, EOMI Neck: Supple, JVD not distended Respiratory: Normal air movement, Expiratory wheezes, Inspiratory wheezes Cardiovascular: Regular rate/rhythm, Normal S1 S2 Gastrointestinal: Normal bowel sounds, Soft and benign, Non-distended, No tenderness Musculoskeletal: No tenderness Integumentary: No rashes Neurological: Normal speech, Normal tone, Normal affect Lymphatics: No axilla or inguinal lymphadenopathy - Studies Laboratory Data (last 24 hrs) 05/15/18 05:46: PT 16.1 H, INR 1.38 05/15/18 05:46: Sodium 146 H, Potassium 3.4 L, BUN 8, Creatinine 1.09, Glucose 95, Total Bilirubin 0.2, AST 20, ALT 18, Alkaline Phosphatase 116 05/15/18 05:46: WBC 6.5 D, Hgb 9.2 L, Hct 29.1 L, Plt Count 270 Medications List Reviewed: Yes Assessment And Plan - Plan Assessment and plan: 1. Acute metabolic encephalopathy, most likely toxic encephalopathy secondary to seizure disorder versus due to UTI. -Dr. Baxter is patient's neurologist, who has been consulted. Recommend getting EEG to rule out any seizure episode at this time -We will also continue to treat for UTI with IV antibiotics. Urine cultures pending at this time 2.History of seizures. -will continue patient on home medication of Keppra at this time. Will check Keppra levels here in the hospital as well. -neurology consulted. Appreciated recommendations at this time -EEGs pending at this time 3.Essential hypertension. We will resume home medications. 4.Chronic kidney disease. -We will hold Lasix and allopurinol for now. Baseline seems to be close to 1. Chronic kidney disease stage 2. -BUN creatinine improving today. 5.Intermittent asthma. We will continue ipratropium. 6.History of deep venous thrombosis -on Coumadin, has increased dose to 5 mg here in the hospital due to subtherapeutic INR. -will recheck INR this morning was 7.Coronary artery disease, status post stent, stable. 8.Obesity, BMI 35.5. Disposition: Will continue to monitor patient closely here in the hospital. Will continue IV antibiotics until urine culture Discharge Plan: [facility] Plan to discharge in: 48 Hours - Code Status/Comfort Care Code Status Assessed: Yes Critical Care: No
[2018-05-15] MEDS: WARFARIN SODIUM 5 MG TAB PO SCH (16:39)
--- NOTE | 2018-05-15 19:32 | CON ---
Date of Consultation: 05/15/2018 Time: 1430. Reason: Seizures. 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 Over the last 6 months, she has had a tremor on the right. It is a resting tremor. A little concerning for Parkinson's and was in the hospital end of March or early April for sepsis. Never really got back to baseline after that admission. We called in for the memory through the office. She comes back into the hospital with confusion and seizure when at home and then another questionable seizure in the ER, was confused and unresponsive, found to have urinary tract infection that has been treated. She is better now. She is awake, conversant, follows commands. She is not excessively confused. Has not had any further seizures. CAT scan of the brain , atrophy, chronic ischemic change. EKG was sinus rhythm. Chest x-ray underinflated. White count 6.5, hemoglobin 9.2. INR subtherapeutic at 1.3. Procalcitonin negative. Given the seizure, consultation was requested. Past Medical History: As alluded to. Allergies: PENICILLIN. Medications: Normally BuSpar, Coumadin, atenolol, Detrol, losartan, Razadyne 4 twice daily, Lamictal 150 twice daily, Keppra 750 in the morning, half of a 750 at night, Risperdal, Lexapro, allopurinol. Social History: Patient requires assistance with activities of daily living. She is not ambulatory in the community setting. Review of Systems: General: Chronically ill. Eyes: Negative. Ears, Nose, Throat: Negative. Cardiovascular: Hypertension, history AFib. Pulmonary: Negative. GI: Negative. : Urinary infection. Musculoskeletal: Arthralgias, tremor. Neurologic: As noted. Psychiatric: Dementia with some behavioral problems. Endocrine: Negative. Hematologic: Anemia, on Coumadin. Physical Examination: Vital Signs: 97.9, 79, 17, 152/70. General: Pleasant , lady lying in bed, in no distress. Awake, alert, knows she is in the hospital. Knows her name. Follows simple commands. Neurologic: Pupils reactive. Ocular motion full. Rodriguez full. Facial strength sensation normal. Tongue protrudes evenly. Soft palate elevates symmetrically bilaterally. Dyspraxia and drift on the right. Full strength on the left. Resting tremor right hand occasionally. Right lip and face without cogwheeling or bradykinesia. Sensation decreased symmetrically distally. Reflexes trace to 1/4. Right toe was upgoing. Cerebellar exam demonstrates no ataxia given the tremor on the right. Pertinent Labs: Keppra level pending. 1+ blood, 3+ esterase on UA. White count and other labs as noted. She is subtherapeutic on her Coumadin with the INR 1.3. Impression: Intractable epilepsy, prior stroke. Plan: We will increase the Lamictal to 200 mg twice daily. She has an EEG pending for Thursday. I think that is a very appropriate study. We will request a brain MRI as well. Thank you for the consult. We will continue to follow with you. TENZIN Voice ID: [id number] Report ID: [id number] [place]
[2018-05-15] MEDS: lamoTRIgine 100 MG TAB PO SCH (21:20)
[2018-05-15] MEDS: JUVEN PACKET PO SCH (21:20)
[2018-05-15] MEDS: LOSARTAN POTASSIUM 50 MG TABLET PO SCH (21:20)
[2018-05-15] MEDS: BUSPIRONE HCL 5 MG TABLET PO SCH (21:21)
[2018-05-15] MEDS: RISPERIDONE 0.25 MG TABLET PO SCH (21:21)
[2018-05-16 05:09] LABS: Absolute Lymphocytes (CBC) 1.4 K/uL (0.7-4.9); Absolute Monocytes 0.5 K/uL (0.1-1.3); Absolute Neutrophil 4.2 K/uL (1.8-8.0); Basophils % 1.1 % (0-1.3); Eosinophils % 2.1 % (0-4.4); Hematocrit 30.5 % (36.0-45.0); Lymphocytes % 22.4 % (15.3-44.8); MPV 7.3 fL (7.6-11.3); Monocytes % 7.7 % (3.3-12.3); RBC Red Blood Cell Count 3.15 M/uL (3.86-4.86)
[2018-05-16 05:29] LABS: Albumin 2.8 g/dL (3.4-5.0); Bilirubin Total 0.2 mg/dL (0.2-1.0); Potassium 3.8 mmol/L (3.5-5.1); Protein, Total 7.1 g/dL (6.4-8.2)
[2018-05-16 05:45] LABS: Protime INR 1.87
[2018-05-16] MEDS: JUVEN PACKET PO SCH ×2 (09:06→21:23)
[2018-05-16] MEDS: lamoTRIgine 100 MG TAB PO SCH ×2 (09:07→21:22)
[2018-05-16] MEDS: GALANTAMINE 4 MG TAB PO SCH ×2 (09:07→21:26)
[2018-05-16] MEDS: ATENOLOL 50 MG TAB PO SCH (09:07)
[2018-05-16] MEDS: AMLODIPINE 10 MG TAB PO SCH (09:08)
[2018-05-16] MEDS ORDERED: LEVALBUTEROL 0.63 MG/3 ML NEB NEB PRN (09:10)
[2018-05-16] MEDS ORDERED: IPRATROPIUM BROM 0.5MG/2.5ML NEB PRN (09:10)
[2018-05-16] MEDS: lamoTRIgine 150 MG TAB PO SCH ×2 (09:11→21:00)
[2018-05-16] MEDS: CEFTRIAXONE/SWI 1gm 1 GM/10 ML SYR IVP SCH (09:12)
--- NOTE | 2018-05-16 10:33 | P.PN ---
Subjective Date of Service: 05/16/18 Patient seen and examined at bedside with RN. Chart reviewed. Case discussed with neurology at this time. No complaints to offer overnight. Doing well overall. Continues to have some tremors which is baseline for her at this time. Does state that her breakfast was bland. Review of Systems 10-point ROS is otherwise unremarkable Physical Examination - Vital Signs Temperature: 98.7 F Blood Pressure: 135/61 Pulse: 76 Respirations: 28 Pulse Ox (%): 97 - Physical Exam General: Alert, In no apparent distress, Other (Ill appearing) HEENT: Atraumatic, PERRLA, EOMI Neck: Supple, JVD not distended Respiratory: Normal air movement, Expiratory wheezes, Inspiratory wheezes Cardiovascular: Regular rate/rhythm, Normal S1 S2 Gastrointestinal: Normal bowel sounds, No tenderness Musculoskeletal: No tenderness Integumentary: No rashes Neurological: Normal speech, Normal tone, Normal affect Lymphatics: No axilla or inguinal lymphadenopathy - Studies Microbiology Data (last 24 hrs): 05/14/18 12:20 Clean Catch Urine [place] Count - Final >100,000 CFU/ML. 05/14/18 12:20 Clean Catch Urine - Final Proteus Mirabilis Medications List Reviewed: Yes Assessment And Plan - Plan Assessment and plan: 1. Acute metabolic encephalopathy, most likely toxic encephalopathy secondary to seizure disorder versus due to UTI. -Dr. Baxter has been consulted. Recommend getting EEG and brain MRI to rule out any seizure episode at this time. -urine Culture + for Proteus. Sensitive to Augmentin. Started on Augmentin today 2.History of seizures. No Seizures noted in last 24hrs. -will continue patient on home medication of Keppra and lamictal at this time. -Keppra Level pending at this time. -neurology consulted. Appreciated recommendations at this time -EEGs and Brain MRI pending at this time 3.Essential hypertension. -On Home medication 4. Acute on Chronic kidney disease. -We will hold Lasix and allopurinol for now. -Baseline seems to be close to 1. Chronic kidney disease stage 2. -BUN creatinine back to baseline 5.Intermittent asthma. -On Duonebs now. 6.History of deep venous thrombosis -on Coumadin, increased dose to 5 mg due to subtherapeutic INR. -INR today is 1.87. Will recheck melania AM 7.Coronary artery disease, status post stent, stable. 8.Obesity, BMI 35.5. Disposition: Will continue to monitor patient closely here in the hospital. Awaiting MRI and EEG at this time Discharge Plan: Assisted Plan to discharge in: 48 Hours - Code Status/Comfort Care Code Status Assessed: Yes Critical Care: No
[2018-05-16] MEDS: AMOX TR/K CLAV 400MG CHEW TAB PO SCH ×2 (12:40→21:22)
[2018-05-16] MEDS: WARFARIN SODIUM 5 MG TAB PO SCH (16:40)
[2018-05-16 18:27] VITALS: BMI 27.9
[2018-05-16] MEDS: BUSPIRONE HCL 5 MG TABLET PO SCH (21:22)
[2018-05-16] MEDS: RISPERIDONE 0.25 MG TABLET PO SCH (21:22)
[2018-05-16] MEDS: LOSARTAN POTASSIUM 50 MG TABLET PO SCH (21:23)
[2018-05-17 06:03] LABS: Absolute Lymphocytes (CBC) 1.5 K/uL (0.7-4.9); Absolute Monocytes 0.6 K/uL (0.1-1.3); Absolute Neutrophil 4.4 K/uL (1.8-8.0); Basophils % 1.3 % (0-1.3); Eosinophils % 2.4 % (0-4.4); Hematocrit 30.8 % (36.0-45.0); Lymphocytes % 22.4 % (15.3-44.8); MPV 7.2 fL (7.6-11.3); Monocytes % 8.3 % (3.3-12.3); Protime INR 2.32; RBC Red Blood Cell Count 3.21 M/uL (3.86-4.86)
[2018-05-17 06:17] LABS: Albumin 2.7 g/dL (3.4-5.0); Bilirubin Total 0.3 mg/dL (0.2-1.0); Protein, Total 6.9 g/dL (6.4-8.2)
[2018-05-17] MEDS: JUVEN PACKET PO SCH ×2 (09:00→20:38)
[2018-05-17] MEDS: AMLODIPINE 10 MG TAB PO SCH (09:46)
[2018-05-17] MEDS: AMOX TR/K CLAV 400MG CHEW TAB PO SCH ×2 (09:46→20:37)
[2018-05-17] MEDS: ATENOLOL 50 MG TAB PO SCH (09:47)
[2018-05-17] MEDS: GALANTAMINE 4 MG TAB PO SCH ×2 (09:47→20:37)
[2018-05-17] MEDS: lamoTRIgine 150 MG TAB PO SCH ×2 (09:48→20:38)
[2018-05-17] MEDS: lamoTRIgine 100 MG TAB PO SCH ×2 (09:48→20:38)
--- NOTE | 2018-05-17 11:51 | RAD REPORT ---
EXAM DESCRIPTION: MRI - Brain Wo Cont - 05/17/2018 11:43 am CLINICAL HISTORY: seizures Headache, drowsiness, seizure COMPARISON: Head Brain Wo Cont dated 05/14/2018 TECHNIQUE: Multi-sequence, multiplanar MR imaging of the brain was performed utilizing seizure claribel col without contrast. FINDINGS: Moderate global brain atrophy seen. No intracranial hemorrhage, hydrocephalus or extra-axi al fluid collections.Moderate confluent T2/FLAIR hyperintensity in the periventricular and deep white matter is present compatible with chronic microvascular ischemic changes. No edema or shift of midli ne structures. No findings to suspect brain mass. DWI is negative for acute CVA. Midline structures are normally formed. Coronal T1 and T2 thin-section imaging shows symmetric tempor al lobes and hippocampal structures. Mastoid air cells and paranasal sinuses are clear. IMPRESSION: No intracranial finding seen to explain seizure history. Negative for acute CVA or other acute intracranial process.
--- NOTE | 2018-05-17 14:02 | P.PN ---
Subjective Date of Service: 05/17/18 Patient seen and examined at bedside with RN. Chart reviewed. Case discussed with neurology at this time. No complaints to offer overnight. Doing well overall. Continues to have some tremors which is baseline for her at this time. This AM does appear Distress and repeats that she wants to go home. Review of Systems 10-point ROS is otherwise unremarkable Physical Examination - Vital Signs Temperature: 97.5 F Blood Pressure: 142/63 Pulse: 69 Respirations: 18 Pulse Ox (%): 96 - Physical Exam General: In no apparent distress, Demented HEENT: Atraumatic, PERRLA, EOMI Neck: Supple, JVD not distended Respiratory: Clear to auscultation bilaterally, Normal air movement Cardiovascular: Regular rate/rhythm, Normal S1 S2 Gastrointestinal: Normal bowel sounds, No tenderness Musculoskeletal: No tenderness Integumentary: No rashes Neurological: Normal speech, Normal tone, Normal affect Lymphatics: No axilla or inguinal lymphadenopathy - Studies Medications List Reviewed: Yes Assessment And Plan - Plan Assessment and plan: 1. Acute metabolic encephalopathy, most likely toxic encephalopathy secondary to seizure disorder versus due to UTI. -Dr. Baxter has been consulted. Recommend getting EEG and brain MRI to rule out any seizure episode at this time. -Pending EEG and MRI today -urine Culture + for Proteus. Sensitive to Augmentin. Started on Augmentin 04/22 2.History of seizures. No Seizures noted in last 24hrs. -will continue patient on home medication of Keppra and lamictal at this time. -Keppra Level pending at this time. -neurology consulted. Appreciated recommendations at this time -EEGs and Brain MRI pending at this time 3.Essential hypertension. -On Home medication 4. Acute on Chronic kidney disease. -We will hold Lasix and allopurinol for now. -Baseline seems to be close to 1. Chronic kidney disease stage 2. -BUN creatinine back to baseline 5.Intermittent asthma. -On Duonebs now. 6.History of deep venous thrombosis -on Coumadin, increased dose to 5 mg due to subtherapeutic INR. -INR today is 1.87. Will recheck melania AM 7.Coronary artery disease, status post stent, stable. 8.Obesity, BMI 35.5. Disposition: Will continue to monitor patient closely here in the hospital. Awaiting MRI and EEG at this time Discharge Plan: Other Plan to discharge in: 48 Hours - Code Status/Comfort Care Code Status Assessed: Yes Critical Care: No
--- NOTE | 2018-05-17 16:18 | RAD REPORT ---
EXAM DESCRIPTION: RAD - Barium Swallow Modified - 05/17/2018 4:01 pm CLINICAL HISTORY: ^Trouble swallowing COMPARISON: None. TECHNIQUE: The patient was given liquid, semi-solid and solid forms of barium. Lateral view fluorosc opic imaging was performed in conjunction with speech pathology service. FINDINGS: Cineloop acquisitions: 17 Fluoro time: 2 minutes 59 seconds Pharyngeal residue: Vallecular, mild to moderate residue with wayne cracker coated in barium pudding , cleared on subsequent swallows. Significantly reduced / inefficient mastication with regular solids, prolonged oral hold. unable to c lear barium tablet from oral cavity. mild to moderate esophageal stasis with regular wayne cracker. IMPRESSION: Modified barium swallow as detailed above and fully detailed on speech pathology report.
[2018-05-17] MEDS: WARFARIN SODIUM 5 MG TAB PO SCH (17:15)
--- NOTE | 2018-05-17 18:01 | PN ---
Date of Progress Note: 05/17/2018 Reason: Seizures. History: No seizures. The patient is stable, seen by Speech Therapy, who recommended a modified bar ium swallow. The patient was in the hospital just less than 2 months ago with pneumonia and sepsis. EEG pending. Brain MRI, no acute stroke or other structural explanation for the symptom complex. I think prudent to just get the modified barium swallow performed if the diet needs to be modified maday t can be accomplished, seems safer than having the patient come back in another 6 weeks with pneumoni a. Physical Examination: She is awake, alert, slightly confused, thinks she is at home or in the long term, not in the hosp ital. Conversant. Ocular motion full. Rodriguez full. Strength full. Sensation intact. Reflexes sy mmetric. Upgoing toe on the right. Pertinent Laboratory Data: White count 6.7, hemoglobin 10. INR 2.3. Creatinine 0.99. Keppra level pending. Impression: Complex partial seizures, stable. Plan: Continue Lamictal 200 twice daily on discharge as well as the Keppra. We will follow up on EE G once performed. Thank you for the consult. We will continue to follow with you. TENZIN Voice ID: [id number] Report ID: [id number]
[2018-05-17] MEDS: RISPERIDONE 0.25 MG TABLET PO SCH (20:37)
[2018-05-17] MEDS: BUSPIRONE HCL 5 MG TABLET PO SCH (20:37)
[2018-05-17] MEDS: LOSARTAN POTASSIUM 50 MG TABLET PO SCH (20:37)
[2018-05-18 06:26] LABS: Protime INR 2.99
[2018-05-18] MEDS: AMLODIPINE 10 MG TAB PO SCH (08:21)
[2018-05-18] MEDS: JUVEN PACKET PO SCH (08:21)
[2018-05-18] MEDS: AMOX TR/K CLAV 400MG CHEW TAB PO SCH (08:21)
[2018-05-18] MEDS: ATENOLOL 50 MG TAB PO SCH (08:21)
[2018-05-18] MEDS: lamoTRIgine 100 MG TAB PO SCH (08:22)
[2018-05-18] MEDS: GALANTAMINE 4 MG TAB PO SCH (08:22)
[2018-05-18] MEDS: lamoTRIgine 150 MG TAB PO SCH (08:23)
--- NOTE | 2018-05-18 11:22 | EEG ---
CHART: [id number] TEST ID#: [id number] DATE OF STUDY: 05/17/2018 THE EEG WAS RECORDED PORTABLE IN THE PATIENTS ROOM ON A 17 CHANNEL MACHINE. ELECTRODES WERE APPLIED IN THE USUAL MANNER USING THE INTERNATIONAL 10-20 SYSTEM. THE WAKING BACKGROUND RHYTHM IN THIS RECORD CONSISTS OF FAIRLY WELL DEVELOPED AND FAIRLY WELL ORGANIZED WAVES OF 9 HZ., MAXIMAL IN THE POSTERIOR HEAD REGIONS WHICH ATTENUATE NORMALLY WITH EYE OPENING. IN DROWSINESS THE BACKGROUND DROPS TO 8 HZ. EPISODES OF RIGHT HAND SHAKING ARE NOT ASSOCIATED WITH ANY CHANGES IN THE ONGOING EEG. THERE ARE NO FOCAL OR LATERALIZING FEATURES. NO EPILEPTIFORM ACTIVITY APPEARS. SLEEP DID NOT OCCUR. HYPERVENTILATION WAS NOT PERFORMED. PHOTIC STIMULATION PRODUCED FAIR DRIVING BILATERALLY. IMPRESSION: NORMAL EEG OF THE AGE OF THE PATIENT IN WAKE AND DROWSINESS.
[2018-05-18 12:45] VITALS: O2SAT 97
[2018-05-18 15:12] VITALS: BP 132/61; TEMP 97.8
--- NOTE | 2018-05-18 18:06 | P.DS ---
Admission Date: 05/15/18 Discharge Date: 05/18/18 Disposition: ROUTINE DISCHARGE Discharge Condition: GOOD Reason for Admission: Altered mental status Consultations: Neurology Brief History of Present Illness: The patient is an 87-year-old female with past medical history of hypertension, chronic kidney disease, asthma, seizure disorder, and history of DVT, on Coumadin, who was discharged from the hospital in early April with sepsis and UTI. The patient was also found to have a thyroid nodule, which was biopsied using FNA. The patient had finished a course of antibiotics upon discharge. Since the past few days, the patient has not been herself. On the day of admission, home health nurse noticed that the patient was altered, not responsive, and seemed to have had a seizure episode with bladder incontinence. The patient does have a history of seizures. The patient's symptoms are constant, moderate, and progressively worsening. Therefore, she was brought into the ER for further evaluation. When seen in the ER, she was awake, alert, and more responsive after initial resuscitation with 1 L fluids. She was given IV antibiotics as well. Hospital Course: Discharge diagnosis 1. Acute toxic encephalopathy 2.History of seizures. No Seizures noted in last 24hrs. 3.Essential hypertension. 4. Acute on Chronic kidney disease. 5.Intermittent asthma. 6.History of deep venous thrombosis 7.Coronary artery disease, status post stent, stable. 8.Obesity, BMI 35.5. Hospital Course Overall during the hospital course patient remained stable Patient was initially admitted to the hospital for acute metabolic encephalopathy most likely secondary to UTI. UA was done here in the hospital which was positive for Proteus. Initially patient was started on broad- spectrum antibiotics however was switched over to Augmentin as the Proteus was sensitive to Augmentin. Patient was initially admitted to the hospital with concerns of acute CVA. Thus head CT was done which was negative for any acute abnormality. Neurology was consulted who recommended an EEG to evaluate for seizures due to the underlying history of seizures. Patient's EEG was also within normal limits. Brain MRI was also negative for any acute abnormality. Patient also had speech therapy consulted who recommended modified barium swallow. Modified barium swallow was done and speech therapy recommended the chemical soft diet. Patient was thus switched to the chemical soft diet here in the hospital. Overall patient did well did have resolution of her altered mental status and thus was discharged home under stable condition was asked to follow up with primary care provider in about 1-2 days post discharge. Vital Signs/Physical Exam: Temp Pulse Resp BP Pulse Ox 97.8 F 75 18 132/61 98 05/18/18 12:00 05/18/18 12:00 05/18/18 12:00 05/18/18 12:00 05/18/18 12:00 General: Alert, In no apparent distress HEENT: Atraumatic, PERRLA, EOMI Neck: Supple, JVD not distended Respiratory: Clear to auscultation bilaterally, Normal air movement Cardiovascular: Regular rate/rhythm, Normal S1 S2 Gastrointestinal: Normal bowel sounds, No tenderness Musculoskeletal: No tenderness Integumentary: No rashes Neurological: Normal speech, Normal tone, Normal affect Lymphatics: No axilla or inguinal lymphadenopathy Laboratory Data at Discharge: WBC 6.7 K/uL (4.3-10.9) 05/17/18 05:36 Hgb 10.0 g/dL (12.0-15.0) L 05/17/18 05:36 Hct 30.8 % (36.0-45.0) L 05/17/18 05:36 Plt Count 266 K/uL (152-406) 05/17/18 05:36 PT 33.8 SECONDS (9.5-12.5) H 05/18/18 05:16 INR 2.99 05/18/18 05:16 APTT 35.7 SECONDS (24.3-36.9) 05/14/18 11:55 Sodium 143 mmol/L (136-145) 05/17/18 05:36 Potassium 4.0 mmol/L (3.5-5.1) 05/17/18 05:36 BUN 19 mg/dL (7-18) H 05/17/18 05:36 Creatinine 0.99 mg/dL (0.55-1.3) 05/17/18 05:36 Glucose 93 mg/dL (74-106) 05/17/18 05:36 Total Bilirubin 0.3 mg/dL (0.2-1.0) 05/17/18 05:36 AST 23 U/L (15-37) 05/17/18 05:36 ALT 20 U/L (12-78) 05/17/18 05:36 Alkaline Phosphatase 118 U/L (45-117) H 05/17/18 05:36 Lipase 84 U/L (73-393) 05/14/18 11:55 Home Medications: Allopurinol 2 tab PO DAILY 04/08/18 Amlodipine Besylate 1 tab PO DAILY 04/08/18 Atenolol 1 tab PO DAILY 04/08/18 Escitalopram Oxalate [Lexapro] 5 mg PO DAILY 04/08/18 Furosemide 1.5 tab PO DAILY 04/08/18 Levetiracetam [Keppra] 0.5 tab PO BEDTIME 04/08/18 Levetiracetam [Keppra] 750 mg PO DAILY 04/08/18 Losartan Potassium 50 mg PO BEDTIME 04/08/18 Tolterodine Tartrate [Detrol] 1 tab PO BID 04/08/18 lamoTRIgine [Lamotrigine] 1 tab PO BID 04/08/18 risperiDONE [Risperidone] 1 tab PO BEDTIME 04/08/18 Buspirone HCl [Buspar] 0.5 tab PO BEDTIME 05/14/18 Galantamine HBr [Razadyne] 4 mg PO BID 05/14/18 Amox/Clavulanate [Augmentin 400 mg Tab*] 400 mg PO BID #14 tab.chew 05/17/18 Warfarin Sodium [Coumadin*] 5 mg PO DAILY 5 PM #30 tab 05/17/18 New Medications: Amox/Clavulanate [Augmentin 400 mg Tab*] 400 mg PO BID #14 tab.chew Warfarin Sodium [Coumadin*] 5 mg PO DAILY 5 PM #30 tab Patient Discharge Instructions: Please f.u with PCP and Neurology in 1 to 2 week post discharge. New medication. Augmentin for 7 days for UTI. Warfarin Please take 5mg M,W,,Thu and take 3mg T,,Sat Diet: Regular Activity: Ad dennise Followup: Gerry Garcia MD [ASSOCIATE-ACTIVE - CAN ADMIT] - 1 Week
== END 2018-05-18 16:24 | disposition home health service (06) | DRG 689 ==
LOC: ER 10:49 → ERHOLD 14:56 → 2ND 16:22 → OBSVTOIN 05-15 11:01
PROVIDERS: ADMIT Family Medicine; ATTEND Family Medicine
DX: N39.0 Urinary tract infection, site not specified (principal); G92 Toxic encephalopathy; N17.9 Acute kidney failure, unspecified; G40.209 Localization-related (focal) (partial) symptomatic epilepsy and epileptic syndromes with complex partial seizures, not intractable, without status epilepticus; B96.4 Proteus (mirabilis) (morganii) as the cause of diseases classified elsewhere; J45.20 Mild intermittent asthma, uncomplicated; Z86.718 Personal history of other venous thrombosis and embolism; I25.10 Atherosclerotic heart disease of native coronary artery without angina pectoris; Z95.5 Presence of coronary angioplasty implant and graft; E66.9 Obesity, unspecified; Z68.35 Body mass index [BMI] 35.0-35.9, adult; Z88.0 Allergy status to penicillin; Z79.01 Long term (current) use of anticoagulants; I12.9 Hypertensive chronic kidney disease with stage 1 through stage 4 chronic kidney disease, or unspecified chronic kidney disease; N18.2 Chronic kidney disease, stage 2 (mild); F03.90 Unspecified dementia, unspecified severity, without behavioral disturbance, psychotic disturbance, mood disturbance, and anxiety; I48.0 Paroxysmal atrial fibrillation
CPT/HCPCS: 36415; 51702; 70450; 70551; 71045; 74230; 80048; 80053; 80076; 80177; 81003; 81015; 82550; 82553; 82962; 83605; 83690; 84145; 84443; 84484; 85025; 85610; 85730; 87040; 87077; 87086; 87088; 87186; 92610; 92611; 93005; 94640; 94760; 95819; 96365; 96366; 97110; 97163; 97530; 99285; G0378; J0696; J7030

== ENCOUNTER 2018-12-20 14:30 | Emergency (ER) | payer OTHER ==
[2018-12-20 15:40] LABS: Protime INR 2.47
--- NOTE | 2018-12-20 16:08 | ER ---
Nurse's Notes [facility] Name: Lizette Evans Age: 88 yrs Sex: Female : 1930 Arrival Date: 12/20/2018 Time: 14:31 Bed 19 Private MD: Diagnosis: Spontaneous ecchymoses Presentation: 12/20 14:37 Presenting complaint: Patient states: LEFT THIGH SWELLING. Transition of care: patient ss was not received from another setting of care. Onset of symptoms is unknown. Risk Assessment: Do you want to hurt yourself or someone else? Patient reports no desire to harm self or others. Initial Sepsis Screen: Does the patient meet any 2 criteria? No. Patient's initial sepsis screen is negative. Does the patient have a suspected source of infection? No. Patient's initial sepsis screen is negative. Care prior to arrival: None. 14:37 Method Of Arrival: Wheelchair ss 14:37 Acuity: ERICKA 3 ss Historical: - Allergies: 14:36 PENICILLINS; ss - Home Meds: 14:36 allopurinol 100 mg Oral tab 2 tabs once daily [Active]; amlodipine 10 mg tab 1 tab once ss daily [Active]; atenolol 50 mg Oral tab 1 tab once daily [Active]; buspirone 10 mg Oral tab 1 tab 2 times per day [Active]; escitalopram oxalate 5 mg Oral tab 1 tab once daily [Active]; furosemide 40 mg Oral tab 1.5 tab once daily [Active]; warfarin 1 mg Oral tab 2 tabs once daily [Active]; tolterodine 2 mg Oral tab 1 tab 2 times per day [Active]; Risperdal 0.5 mg Oral tab 1 tab nightly [Active]; losartan 50 mg Oral tab 1 tab nightly [Active]; levetiracetam 750 mg Oral tab 0.5 tab every evening [Active]; levetiracetam 750 mg Oral tab 1 tab every morning [Active]; Lamictal 150 mg Oral tab 2 times per day [Active]; galantamine 4 mg Oral tab 1 tab 2 times per day [Active]; - PMHx: 14:36 ADD/ADHD; CVA; DVT; Hypertension; Seizures; TIA; ss - Immunization history:: Adult Immunizations up to date. - Social history:: Smoking status: Patient/guardian denies using tobacco. - Ebola Screening: : No symptoms or risks identified at this time. Screenin:45 Abuse screen: Denies threats or abuse. Denies injuries from another. Nutritional sg screening: No deficits noted. Tuberculosis screening: No symptoms or risk factors identified. Never had TB. Fall Risk Gait- Weak (10 pts.). Total Vega Fall Scale indicates Low Risk Score (25-44 pts). Fall prevention measures have been instituted. Frequent Obs/Assesments occuring Family Present and informed to notify staff if they need to leave bedside. Assessment: 14:52 General: Appears in no apparent distress. well groomed, well developed, well nourished, sg Behavior is calm, cooperative, appropriate for age, quiet. Pain: Complains of pain in medial aspect of left thigh. Neuro: Level of Consciousness is awake, alert, obeys commands, Oriented to person, place, time, [employer] are equal bilaterally Moves all extremities. Speech is normal, Facial symmetry appears normal. Cardiovascular: Capillary refill is brisk in bilateral fingers Patient's skin is warm and dry. Respiratory: Airway is patent Respiratory effort is even, unlabored, Respiratory pattern is regular, symmetrical. GI: Abdomen is round non-distended, Reports tolerance of fluids, tolerance of food. : No signs and/or symptoms were reported regarding the genitourinary system. Derm: Skin is normal, Skin temperature is warm Rash noted that is red, on medial aspect of left thigh. Musculoskeletal: Circulation, motion, and sensation intact. Swelling present in medial aspect of left thigh. Vital Signs: 14:37 BP 107 / 58; Pulse 67; Resp 20; Temp 97.5; Pulse Ox 96% ; Weight 80.74 kg; ss 16:00 BP 126 / 59; Pulse 65 MON; Resp 17; Pulse Ox 100% on R/A; sg ED Course: 14:31 Patient arrived in ED. as 14:37 Triage completed. ss 14:37 Arm band placed on. ss 14:43 Charli Mcpherson PA is PHCP. jr8 14:43 Tacos Bland MD is Attending Physician. jr8 14:45 No provider procedures requiring assistance completed. sg 14:52 Krishna Thompson, RN is Primary Nurse. sg 15:29 Initial lab(s) drawn, by me, sent to lab. Inserted saline lock: 22 gauge in right sg wrist, using aseptic technique. Blood collected. 16:08 Ld wrap to left thigh. sg Administered Medications: No medications were administered Outcome: 16:07 Discharge ordered by MD. fowler 16:17 Patient left the ED. sg Signatures: Krishna Thompson RN Neha Issa Shelby, RN RN Charli Mcpherson PA PA jr8
--- NOTE | 2018-12-20 16:08 | EDPHYS ---
Physician Documentation [facility] Name: Lizette Evans Age: 88 yrs Sex: Female : 1930 Arrival Date: 12/20/2018 Time: 14:31 Bed 19 Private MD: ANEUDY Physician Tacos Bland HPI: 12/20 14:58 This 88 yrs old Black Female presents to ER via Wheelchair with complaints of Leg jr8 Swelling. 14:58 The patient presents with pain. The complaints affect the medial aspect of left thigh. jr8 Context: The problem was sustained at an unknown site, resulted from an unknown cause. Onset: The symptoms/episode began/occurred gradually, 2 day(s) ago. Modifying factors: The symptoms are alleviated by nothing. the symptoms are aggravated by movement. Associated signs and symptoms: The patient has no apparent associated signs or symptoms. Severity of symptoms: At their worst the symptoms were mild, in the emergency department the symptoms are unchanged. The patient has not experienced similar symptoms in the past. The patient has not recently seen a physician. Home health came to evaluate patient today. Noted tenderness and mass like structure under the skin to left medial thigh . Historical: - Allergies: 14:36 PENICILLINS; ss - Home Meds: 14:36 allopurinol 100 mg Oral tab 2 tabs once daily [Active]; amlodipine 10 mg tab 1 tab once ss daily [Active]; atenolol 50 mg Oral tab 1 tab once daily [Active]; buspirone 10 mg Oral tab 1 tab 2 times per day [Active]; escitalopram oxalate 5 mg Oral tab 1 tab once daily [Active]; furosemide 40 mg Oral tab 1.5 tab once daily [Active]; warfarin 1 mg Oral tab 2 tabs once daily [Active]; tolterodine 2 mg Oral tab 1 tab 2 times per day [Active]; Risperdal 0.5 mg Oral tab 1 tab nightly [Active]; losartan 50 mg Oral tab 1 tab nightly [Active]; levetiracetam 750 mg Oral tab 0.5 tab every evening [Active]; levetiracetam 750 mg Oral tab 1 tab every morning [Active]; Lamictal 150 mg Oral tab 2 times per day [Active]; galantamine 4 mg Oral tab 1 tab 2 times per day [Active]; - PMHx: 14:36 ADD/ADHD; CVA; DVT; Hypertension; Seizures; TIA; ss - Immunization history:: Adult Immunizations up to date. - Social history:: Smoking status: Patient/guardian denies using tobacco. - Ebola Screening: : No symptoms or risks identified at this time. ROS: 14:58 Eyes: Negative for injury, pain, redness, and discharge, ENT: Negative for injury, jr8 pain, and discharge, Neck: Negative for injury, pain, and swelling, Cardiovascular: Negative for chest pain, palpitations, and edema, Respiratory: Negative for shortness of breath, cough, wheezing, and pleuritic chest pain, Abdomen/GI: Negative for abdominal pain, nausea, vomiting, diarrhea, and constipation, Back: Negative for injury and pain, Skin: Negative for injury, rash, and discoloration, Neuro: Negative for headache, weakness, numbness, tingling, and seizure. 14:58 MS/extremity: Positive for pain, swelling, tenderness, of the left leg. Exam: 14:58 Eyes: Pupils equal round and reactive to light, extra-ocular motions intact. Lids and jr8 lashes normal. Conjunctiva and sclera are non-icteric and not injected. Cornea within normal limits. Periorbital areas with no swelling, redness, or edema. ENT: Nares patent. No nasal discharge, no septal abnormalities noted. Tympanic membranes are normal and external auditory canals are clear. Oropharynx with no redness, swelling, or masses, exudates, or evidence of obstruction, uvula midline. Mucous membranes moist. Neck: Trachea midline, no thyromegaly or masses palpated, and no cervical lymphadenopathy. Supple, full range of motion without nuchal rigidity, or vertebral point tenderness. No Meningismus. Cardiovascular: Regular rate and rhythm with a normal S1 and S2. No gallops, murmurs, or rubs. Normal PMI, no JVD. No pulse deficits. Respiratory: Lungs have equal breath sounds bilaterally, clear to auscultation and percussion. No rales, rhonchi or wheezes noted. No increased work of breathing, no retractions or nasal flaring. Abdomen/GI: Soft, non-tender, with normal bowel sounds. No distension or tympany. No guarding or rebound. No evidence of tenderness throughout. Back: No spinal tenderness. No costovertebral tenderness. Full range of motion. Skin: Warm, dry with normal turgor. Normal color with no rashes, no lesions, and no evidence of cellulitis. Neuro: Awake and alert, GCS 15, oriented to person, place, time, and situation. Cranial nerves II-XII grossly intact. Motor strength 5/5 in all extremities. Sensory grossly intact. Cerebellar exam normal. Normal gait. 14:58 Musculoskeletal/extremity: Extremities: grossly normal except: noted in the left leg and medial aspect of left thigh: Patient has bruising to left medial thigh with palpated round, well circumscribed cystic structure about 4 cm x 4 cm in dimension. No erythema or surrounding cellulitis. No other trauma noted , ROM: intact in all extremities, Circulation is intact in all extremities. Sensation intact. Vital Signs: 14:37 BP 107 / 58; Pulse 67; Resp 20; Temp 97.5; Pulse Ox 96% ; Weight 80.74 kg; ss 16:00 BP 126 / 59; Pulse 65 MON; Resp 17; Pulse Ox 100% on R/A; sg MDM: 14:43 Patient medically screened. jr8 16:04 Data reviewed: vital signs, nurses notes, and as a result, I will discharge patient. jr8 Data interpreted: Pulse oximetry: on room air is 100 %. Interpretation: normal. Counseling: I had a detailed discussion with the patient and/or guardian regarding: the historical points, exam findings, and any diagnostic results supporting the discharge/admit diagnosis, the need for outpatient follow up, a family practitioner, to return to the emergency department if symptoms worsen or persist or if there are any questions or concerns that arise at home. ED course: Hematoma palpated to left medial thigh with ecchymosis, no overlying cellulitis. Pt therapeutic on her warfarin. Discussed return precautions and FU. 12/20 14:58 Order name: Protime (+inr); Complete Time: 15:49 jr8 12/20 14:58 Order name: Ptt, Activated; Complete Time: 15:49 jr8 12/20 16:04 Order name: Ld Wrap; Complete Time: 16:07 jr8 Administered Medications: No medications were administered Disposition: 12/21 06:26 Co-signature as Attending Physician, Tacos Bland MD I agree with the assessment and corky plan of care. Disposition: 12/20/18 16:07 Discharged to Home. Impression: Spontaneous ecchymoses. - Condition is Stable. - Discharge Instructions: Hematoma, Warfarin Coagulopathy, What You Need to Know About Warfarin. - Medication Reconciliation Form, Thank You Letter form. - Follow up: Private Physician; When: 2 - 3 days; Reason: Recheck today's complaints, Re-evaluation by your physician. - Problem is new. - Symptoms are unchanged. Signatures: Dispatcher [employer] EDMS Krishna Thompson RN RN sg Anderson, Corey, MD MD cha Smirch, Shelby, RN RN ss Roszak, Josh, PA PA jr8 Corrections: (The following items were deleted from the chart) 12/20 16:17 16:07 12/20/2018 16:07 Discharged to Home. Impression: Spontaneous ecchymoses. sg Condition is Stable. Forms are Medication Reconciliation Form, Thank You Letter, Antibiotic Education, Prescription Opioid Use. Follow up: Private Physician; When: 2 - 3 days; Reason: Recheck today's complaints, Re-evaluation by your physician. Problem is new. Symptoms are unchanged. jr8
[2018-12-20 16:39] VITALS: TEMP 97.5
[2018-12-20 16:41] VITALS: BP 126/59; O2SAT 100
== END 2018-12-20 16:17 | disposition home or self-care (01) ==
LOC: ER 14:30
DX: R23.3 Spontaneous ecchymoses (principal); I10 Essential (primary) hypertension; F90.9 Attention-deficit hyperactivity disorder, unspecified type; Z86.73 Personal history of transient ischemic attack (TIA), and cerebral infarction without residual deficits; Z88.0 Allergy status to penicillin
CPT/HCPCS: 36415; 85610; 85730; 99283

== ENCOUNTER 2018-12-28 11:07 | Emergency (ER) | payer OTHER ==
--- NOTE | 2018-12-28 12:48 | RAD REPORT ---
EXAM DESCRIPTION: USExtremity Venous Uni Ltd12/28/2018 12:37 pm CLINICAL HISTORY: left leg pain and swelling. COMPARISON: None. FINDINGS: Left common femoral, superficial femoral, popliteal and posterior tibial veins are compre ssible and demonstrate augmentation. Doppler demonstrates good flow. IMPRESSION: No evidence of deep venous thrombosis involving the left lower extremity.
--- NOTE | 2018-12-28 12:55 | RAD REPORT ---
EXAM DESCRIPTION: US - Extremity Nonvascular Complete - 12/28/2018 12:37 pm CLINICAL HISTORY: Left thigh mass COMPARISON: None FINDINGS: 4.4 centimeter complex cystic mass is palpable within the left thigh. Smaller additional h ypoechoic mass seen. Increased vascularity is not noted. IMPRESSION: Complex cystic masses left thigh with the largest measuring 4.4 centimeters. These may r epresent necrotic lymph nodes. An infectious/inflammatory process is another consideration
[2018-12-28 13:39] LABS: Absolute Lymphocytes (CBC) 1.3 K/uL (0.7-4.9); Basophils % 1.2 % (0-1.3); Hematocrit 30.4 % (36.0-45.0); Lymphocytes % 15.2 % (15.3-44.8); MPV 7.3 fL (7.6-11.3); RBC Red Blood Cell Count 3.15 M/uL (3.86-4.86)
[2018-12-28 13:51] LABS: Protime INR 3.61
[2018-12-28 13:53] LABS: Albumin 3.1 g/dL (3.4-5.0); Bilirubin Total 0.4 mg/dL (0.2-1.0); Potassium 3.2 mmol/L (3.5-5.1); Protein, Total 7.5 g/dL (6.4-8.2)
--- NOTE | 2018-12-28 14:56 | EDPHYS ---
Physician Documentation [facility] Name: Lizette Evans Age: 88 yrs Sex: Female : 1930 Arrival Date: 12/28/2018 Time: 11:09 Bed 13 Private MD: ED Physician Connor Burton HPI: 12/28 12:36 This 88 yrs old Black Female presents to ER via Wheelchair with complaints of Bump on pm1 left thigh. 12:36 The patient presents with pain, mass. The complaints affect the medial aspect of left pm1 thigh. Context: The problem was sustained at home, resulted from an unknown cause, Problem is a result from a previous injury: No. Onset: The symptoms/episode began/occurred 10 day(s) ago. Modifying factors: The symptoms are alleviated by nothing. the symptoms are aggravated by palpation. Associated signs and symptoms: Pertinent negatives calf tenderness, fever. Treatment prior to arrival includes: no previous treatment. Severity of symptoms: in the emergency department the symptoms are actually worse, reports has grown in size since evaluation in the ER 7 days ago. The patient has not experienced similar symptoms in the past. The patient has been recently seen at the [facility] Emergency Department, 7 days ago for same complaint and dx with spontaneous hematoma. Historical: - Allergies: 11:39 PENICILLINS; la1 - PMHx: 11:39 ADD/ADHD; CVA; DVT; Hypertension; Seizures; TIA; la1 - Immunization history:: Adult Immunizations up to date. - Social history:: Smoking status: Patient/guardian denies using tobacco. - Ebola Screening: : No symptoms or risks identified at this time. ROS: 12:36 Constitutional: Negative for fever, chills, and weight loss, Cardiovascular: Negative pm1 for chest pain, palpitations, and edema, Respiratory: Negative for shortness of breath, cough, wheezing, and pleuritic chest pain, Abdomen/GI: Negative for abdominal pain, nausea, vomiting, diarrhea, and constipation, Back: Negative for injury and pain, MS/Extremity: Negative for injury and deformity. 12:36 Neuro: Negative for headache, weakness, numbness, tingling, and seizure. 12:36 Skin: Positive for bruise, mass on left medial thigh that grown in size. Exam: 12:36 Constitutional: This is a well developed, well nourished patient who is awake, alert, pm1 and in no acute distress. Head/Face: Normocephalic, atraumatic. Neck: Trachea midline, no thyromegaly or masses palpated, and no cervical lymphadenopathy. Supple, full range of motion without nuchal rigidity, or vertebral point tenderness. No Meningismus. Chest/axilla: Normal chest wall appearance and motion. Nontender with no deformity. No lesions are appreciated. Cardiovascular: Regular rate and rhythm with a normal S1 and S2. No gallops, murmurs, or rubs. Normal PMI, no JVD. No pulse deficits. Respiratory: Lungs have equal breath sounds bilaterally, clear to auscultation and percussion. No rales, rhonchi or wheezes noted. No increased work of breathing, no retractions or nasal flaring. Abdomen/GI: Soft, non-tender, with normal bowel sounds. No distension or tympany. No guarding or rebound. No evidence of tenderness throughout. Back: No spinal tenderness. No costovertebral tenderness. Full range of motion. 12:36 Skin: Appearance: normal except for affected area, cellulitis, is not appreciated, 3 cm x 5 cm palpable mass present on left medial thigh. Small reddish area central to mass. Vital Signs: 11:40 BP 119 / 91; Pulse 97; Resp 16; Temp 98.1; Pulse Ox 98% on R/A; la1 13:00 BP 118 / 84; Pulse 84; Resp 18; Pulse Ox 98% on R/A; ph 14:22 BP 105 / 54; Pulse 67; Resp 20; Temp 97.9(O); Pulse Ox 100% ; lt1 Procedures: 14:57 Performed Needle aspiration of left thigh mass with sterile technique. Cleansed with pm1 betadine prior to needle aspiration. Clear, light yellowish fluid aspirated which is consistent with lymph fluid. No purulent drainage present and minimal bleeding present after procedure. Cindy PISANO present to assist and thermal cutter hand. Patient tolerated procedure well . MDM: 11:57 Patient medically screened. pm1 14:52 Data reviewed: vital signs. Data interpreted: Pulse oximetry: on room air is 100 %. pm1 Interpretation: normal. Counseling: I had a detailed discussion with the patient and/or guardian regarding: the historical points, exam findings, and any diagnostic results supporting the discharge/admit diagnosis, lab results, radiology results, the need for outpatient follow up, to return to the emergency department if symptoms worsen or persist or if there are any questions or concerns that arise at home. 15:11 ED course: Patient's wbc wnls after 10 days of mass. Lymph fluid aspirated and no pm1 indication of abscess or cellulitis present. Due to small central area of redness over mass will prescribe doxycycline. Among ABX that would be appropriate, Doxycycline with minor interaction to warfarin. 12/28 12:04 Order name: CBC with Diff; Complete Time: 13:55 pm1 12/28 12:04 Order name: CMP; Complete Time: 13:55 pm1 12/28 12:04 Order name: PT-INR; Complete Time: 13:55 pm1 12/28 12:28 Order name: Extremity Venous Uni Ltd; Complete Time: 12:51 EDMS 12/28 12:04 Order name: IV Saline Lock; Complete Time: 13:59 pm1 12/28 12:30 Order name: Extremity Nonvascular Complete; Complete Time: 13:05 EDMS Administered Medications: 15:20 Drug: Doxycycline 100 mg Route: PO; la1 15:21 Follow up: Response: No adverse reaction la1 Disposition: 16:30 Co-signature as Attending Physician, Connor Burton MD. rn Disposition: 12/28/18 14:55 Discharged to Home. Impression: Localized swelling, mass and lump, left lower limb. - Condition is Stable. - Prescriptions for Doxycycline Hyclate 100 mg Oral Tablet - take 1 tablet by ORAL route every 12 hours; 20 tablet. - Medication Reconciliation Form, Thank You Letter, Antibiotic Education, Prescription Opioid Use form. - Follow up: Emergency Department; When: As needed; Reason: Worsening of condition. Follow up: Alfredo Jensen MD; When: 2 - 3 days; Reason: Recheck today's complaints, Continuance of care, Re-evaluation by your physician. - Problem is new. - Symptoms have improved. Signatures: Dispatcher [employer] EDMS Connor Burton MD MD rn Attema, Lee RN RN la1 Cindy Pan RN RN ph Marinas, Patrick, NATASHA TRACK REPAIR LABORER pm1 Corrections: (The following items were deleted from the chart) 12:27 12:05 Extremity Venous Uni Ltd+[email or web address] ordered. EDMS EDMS 12:28 12:27 Extremity Nonvascular Complete ordered. EDNV EDMS 15:36 14:55 12/28/2018 14:55 Discharged to Home. Impression: Localized swelling, mass and ph lump, left lower limb. Condition is Stable. Forms are Medication Reconciliation Form, Thank You Letter, Antibiotic Education, Prescription Opioid Use. Follow up: Emergency Department; When: As needed; Reason: Worsening of condition. Follow up: Alfredo Jensen; When: 2 - 3 days; Reason: Recheck today's complaints, Continuance of care, Re-evaluation by your physician. Problem is new. Symptoms have improved. pm1
--- NOTE | 2018-12-28 14:56 | ER ---
Nurse's Notes [facility] Name: Lizette Evans Age: 88 yrs Sex: Female : 1930 Arrival Date: 12/28/2018 Time: 11:09 Bed 13 Private MD: Diagnosis: Localized swelling, mass and lump, left lower limb Presentation: 12/28 11:39 Presenting complaint: Child states: She has a bump on her left thigh that has been la1 there for a while now, she was seen here and we were told it was a hematoma but its gotten bigger and the home health nurse was concerned. Transition of care: patient was not received from another setting of care. Onset of symptoms was December 28, 2018. Risk Assessment: Do you want to hurt yourself or someone else? Patient reports no desire to harm self or others. Initial Sepsis Screen: Does the patient meet any 2 criteria? No. Patient's initial sepsis screen is negative. Care prior to arrival: None. 11:39 Method Of Arrival: Wheelchair la1 11:39 Acuity: ERICKA 3 la1 18:51 Initial Sepsis Screen: Does the patient have a suspected source of infection?. ph Historical: - Allergies: 11:39 PENICILLINS; la1 - PMHx: 11:39 ADD/ADHD; CVA; DVT; Hypertension; Seizures; TIA; la1 - Immunization history:: Adult Immunizations up to date. - Social history:: Smoking status: Patient/guardian denies using tobacco. - Ebola Screening: : No symptoms or risks identified at this time. Screenin:21 Abuse screen: Denies threats or abuse. Denies injuries from another. Nutritional ph screening: No deficits noted. Tuberculosis screening: No symptoms or risk factors identified. Fall Risk None identified. Assessment: 12:30 General: Appears in no apparent distress. comfortable, well groomed, Behavior is calm, ph cooperative, appropriate for age, Denies fever. Pain: Complains of pain in medial aspect of left thigh. Neuro: Level of Consciousness is awake, alert, obeys commands, Oriented to person, place, time, situation. Cardiovascular: Capillary refill < 3 seconds in bilateral fingers Patient's skin is warm and dry. Respiratory: Airway is patent Respiratory effort is even, unlabored. Derm: Skin is intact, Skin is pink, warm \T\ dry. Musculoskeletal: Swelling present in medial aspect of left thigh. 14:00 Reassessment: Patient appears in no apparent distress at this time. Patient and/or ph family updated on plan of care and expected duration. Pain level reassessed. Patient is alert, oriented x 3, equal unlabored respirations, skin warm/dry/pink. Vital Signs: 11:40 BP 119 / 91; Pulse 97; Resp 16; Temp 98.1; Pulse Ox 98% on R/A; la1 13:00 BP 118 / 84; Pulse 84; Resp 18; Pulse Ox 98% on R/A; ph 14:22 BP 105 / 54; Pulse 67; Resp 20; Temp 97.9(O); Pulse Ox 100% ; lt1 ED Course: 11:09 Patient arrived in ED. mr 11:40 Triage completed. la1 11:41 Arm band placed on left wrist. la1 11:44 Gabe Matt NP is PHCP. pm1 11:44 Connor Burton MD is Attending Physician. pm1 12:01 Cindy Pan, ALIYA is Primary Nurse. ph 12:37 Extremity Venous Uni Ltd In Process Unspecified. EDMS 12:37 Extremity Nonvascular Complete In Process Unspecified. EDMS 13:16 Inserted saline lock: 22 gauge in left antecubital area, using aseptic technique. lt1 14:21 needle aspiration of L inner thigh. ph 14:22 Patient has correct armband on for positive identification. Placed in gown. Bed in low ph position. Call light in reach. Side rails up X 1. Pulse ox on. NIBP on. 14:53 Alfredo Jensen MD is Referral Physician. pm1 15:00 IV discontinued, intact, bleeding controlled, No redness/swelling at site. Pressure ph dressing applied. Administered Medications: 15:20 Drug: Doxycycline 100 mg Route: PO; la1 15:21 Follow up: Response: No adverse reaction la1 Outcome: 14:55 Discharge ordered by . pm1 15:22 Discharged to home via wheelchair. la1 15:22 Condition: stable 15:22 Discharge instructions given to patient, Instructed on discharge instructions, follow up and referral plans. medication usage, Demonstrated understanding of instructions, follow-up care, medications, Prescriptions given X 1. 15:36 Patient left the ED. ph Signatures: Dispatcher [employer] Celeste Hinson mr Austin, Baltazar, RN RN la1 Cindy Pan, RN RN Gabe Hines, SUPERVISOR FABRICATION DEPARTMENT SUPERVISOR FABRICATION DEPARTMENT pm1 Claudia Casillas [facility]
[2018-12-28] MEDS ORDERED: DOXYCYCLINE 100 MG CAP PO ONE (15:12)
[2018-12-28 15:55] VITALS: BP 105/54; TEMP 97.9; O2SAT 100
== END 2018-12-28 15:36 | disposition home or self-care (01) ==
LOC: ER 11:07
PROC: 0H9JXZX Drainage of Left Upper Leg Skin, External Approach, Diagnostic (ICD-10-PCS; principal; 2018-12-28)
DX: R22.42 Localized swelling, mass and lump, left lower limb (principal); I10 Essential (primary) hypertension; Z88.0 Allergy status to penicillin
CPT/HCPCS: 36415; 76881; 80053; 85025; 85610; 93971; 99284

== ENCOUNTER 2019-05-24 08:51 | Inpatient (IN) | payer OTHER ==
--- OUTSIDE RECORDS SUMMARY | 2019-05-24 08:55 | XMS REPORT ---
:1930 [facility] Organization [facility] Address [address] [place] [address] [address] [place] [address] Care Team Providers Name Role Phone JORDEN MUNOZ Unavailable Unavailable Problems This patient has no known problems. Allergies, Adverse Reactions, Alerts This patient has no known allergies or adverse reactions. Medications This patient has no known medications. Results Test Description Test Time Test Comments Text Results Atomic Results Result Comments BLOOD CULTURE 2016-10-29 18:00:00 Test Item Value Reference Range Comments CULTURE (BEAKER) (test pkff=1088) No growth in 5 days BLOOD [id number] 18:00:00 Test Item Value Reference Range Comments CULTURE (BEAKER) (test bbef=5675) No growth in 5 days POCT-GLUCOSE [id number] 07:52:00 Test Item Value Reference Range Comments POC-GLUCOSE METER (BEAKER) 95 mg/dL 70-110 TESTED AT [facility] [address] [place] [address] (test qxcz=1373) [facility] [address] TSH/FREE T4 IF [id number] 06:35:00 Test Item Value Reference Range Comments THYROID STIMULATING HORMONE (BEAKER) (test 1.58 uIU/mL 0.35-4.94 rceo=983) VITAMIN D, [id number] 05:55:00 Test Item Value Reference Range Comments VITAMIN D 25-OH (BEAKER) (test tuyk=5099) < ng/mL 13.0-47.8 TROPONIN [id number] 05:12:00 Test Item Value Reference Range Comments TROPONIN I (BEAKER) (test bzyt=245) 0.02 ng/mL 0.00-0.03 Effective 01/24/2014: Reference Range [...] renalfailure, acidosis, acute neurological disease, and persistent tachyarrhythmia.[id number] 05:04: 00 Test Item Value Reference Range Comments PHOSPHORUS (BEAKER) (test ncef=128) 2.9 mg/dL 2.3-4.7 [id number] 05:04:00 Test Item Value Reference Range Comments MAGNESIUM (BEAKER) (test xbyy=029) 1.9 mg/dL 1.6-2.6 BASIC METABOLIC [id number] 05:04:00 Test Item Value Reference Range Comments SODIUM (BEAKER) (test 142 meq/L 136-145 qkpz=848) POTASSIUM (BEAKER) (test 3.9 meq/L 3.5-5.1 wcwl=362) CHLORIDE (BEAKER) (test 112 meq/L 98-107 engf=219) CO2 (BEAKER) (test 23 meq/L 22-29 cwrf=608) BLOOD UREA NITROGEN 19 mg/dL 7-21 (BEAKER) (test jiai=111) CREATININE (BEAKER) (test 0.84 mg/dL 0.57-1.25 lcib=576) GLUCOSE RANDOM (BEAKER) 107 mg/dL 70-105 (test vizo=782) CALCIUM (BEAKER) (test 8.9 mg/dL 8.4-10.2 fzrd=314) EGFR (BEAKER) (test 78 mL/min/1.73 sq m ESTIMATED GFR IS NOT lyrs=1729) ACCURATE CREATININE CLEARANCE IN PREDICTING GLOMERULAR FILTRATION RATE. ESTIMATED GFR IS NOT APPLICABLE FOR DIALYSIS PATIENTS. CBC W/PLT COUNT & AUTO [id number] 04:51:00 Test Item Value Reference Range Comments WHITE BLOOD CELL COUNT (BEAKER) (test fjzu=064) 8.3 K/ L 3.5-10.5 RED BLOOD CELL COUNT (BEAKER) (test ngmm=631) 3.07 M/ L 3.93-5.22 HEMOGLOBIN (BEAKER) (test gtrl=586) 9.2 GM/DL 11.2-15.7 HEMATOCRIT (BEAKER) (test wmtw=517) 29.1 % 34.1-44.9 MEAN CORPUSCULAR VOLUME (BEAKER) (test hggp=250) 94.8 fL 79.4-94.8 MEAN CORPUSCULAR HEMOGLOBIN (BEAKER) (test 30.0 pg 25.6-32.2 hbcy=340) MEAN CORPUSCULAR HEMOGLOBIN CONC (BEAKER) (test 31.6 GM/DL 32.2-35.5 tonn=596) RED CELL DISTRIBUTION WIDTH (BEAKER) (test 14.3 % 11.7-14.4 cdmh=404) PLATELET COUNT (BEAKER) (test mjkt=601) 182 K/CU MM 150-450 MEAN PLATELET VOLUME (BEAKER) (test lusm=122) 9.8 fL 9.4-12.3 NUCLEATED RED BLOOD CELLS (BEAKER) (test 0 /100 WBC 0-0 rptx=754) NEUTROPHILS RELATIVE PERCENT (BEAKER) (test 61 % rkhu=484) LYMPHOCYTES RELATIVE PERCENT (BEAKER) (test 31 % onyz=017) MONOCYTES RELATIVE PERCENT (BEAKER) (test 8 % ucrj=135) EOSINOPHILS RELATIVE PERCENT (BEAKER) (test 0 % bqfx=594) BASOPHILS RELATIVE PERCENT (BEAKER) (test 1 % kmoh=947) NEUTROPHILS ABSOLUTE COUNT (BEAKER) (test 5.03 K/ L 1.56-6.13 ekrl=524) LYMPHOCYTES ABSOLUTE COUNT (BEAKER) (test 2.54 K/ L 1.18-3.74 ukhx=940) MONOCYTES ABSOLUTE COUNT (BEAKER) (test 0.64 K/ L 0.24-0.36 kcdw=027) EOSINOPHILS ABSOLUTE COUNT (BEAKER) (test 0.01 K/ L 0.04-0.36 fgne=980) BASOPHILS ABSOLUTE COUNT (BEAKER) (test 0.05 K/ L 0.01-0.08 bdir=802) IMMATURE GRANULOCYTES-RELATIVE PERCENT (BEAKER) 1 % 0-1 (test pjli=2117) POCT-GLUCOSE [id number] 23:47:00 Test Item Value Reference Range Comments POC-GLUCOSE METER (BEAKER) 121 mg/dL 70-110 TESTED AT [facility] [address] [facility] (test cokm=0919) [facility] [address] CBC W/PLT COUNT & AUTO [id number] 07:13:00 Test Item Value Reference Range Comments WHITE BLOOD CELL COUNT (BEAKER) (test kwal=293) 8.9 K/ L 3.5-10.5 RED BLOOD CELL COUNT (BEAKER) (test ofhr=680) 3.47 M/ L 3.93-5.22 HEMOGLOBIN (BEAKER) (test ehgs=069) 10.6 GM/DL 11.2-15.7 HEMATOCRIT (BEAKER) (test yggy=690) 33.4 % 34.1-44.9 MEAN CORPUSCULAR VOLUME (BEAKER) (test pquy=043) 96.3 fL 79.4-94.8 MEAN CORPUSCULAR HEMOGLOBIN (BEAKER) (test 30.5 pg 25.6-32.2 auqe=884) MEAN CORPUSCULAR HEMOGLOBIN CONC (BEAKER) (test 31.7 GM/DL 32.2-35.5 wgyi=711) RED CELL DISTRIBUTION WIDTH (BEAKER) (test 14.6 % 11.7-14.4 mmeh=151) PLATELET COUNT (BEAKER) (test vuin=869) 206 K/CU MM 150-450 MEAN PLATELET VOLUME (BEAKER) (test bcki=093) 10.2 fL 9.4-12.3 NUCLEATED RED BLOOD CELLS (BEAKER) (test 0 /100 WBC 0-0 ummc=604) NEUTROPHILS RELATIVE PERCENT (BEAKER) (test 66 % ghos=710) LYMPHOCYTES RELATIVE PERCENT (BEAKER) (test 28 % rbwg=222) MONOCYTES RELATIVE PERCENT (BEAKER) (test 6 % urjs=320) EOSINOPHILS RELATIVE PERCENT (BEAKER) (test 0 % hztv=380) BASOPHILS RELATIVE PERCENT (BEAKER) (test 1 % waqv=046) NEUTROPHILS ABSOLUTE COUNT (BEAKER) (test 5.84 K/ L 1.56-6.13 hxks=750) LYMPHOCYTES ABSOLUTE COUNT (BEAKER) (test 2.47 K/ L 1.18-3.74 rnvd=568) MONOCYTES ABSOLUTE COUNT (BEAKER) (test 0.51 K/ L 0.24-0.36 ypue=100) EOSINOPHILS ABSOLUTE COUNT (BEAKER) (test 0.01 K/ L 0.04-0.36 fbqv=370) BASOPHILS ABSOLUTE COUNT (BEAKER) (test 0.06 K/ L 0.01-0.08 zfwb=226) IMMATURE GRANULOCYTES-RELATIVE PERCENT (BEAKER) 0 % 0-1 (test smut=7368) PHENYTOIN LEVEL, [id number] 06:29:00 Test Item Value Reference Range Comments PHENYTOIN (DILANTIN) (BEAKER) (test uqmx=750) 21.3 ug/mL 10.0-20.0 Prior to morning dose [id number] 06:18:00 Test Item Value Reference Range Comments PHOSPHORUS (BEAKER) (test wklt=014) 2.8 mg/dL 2.3-4.7 [id number] 06:18:00 Test Item Value Reference Range Comments MAGNESIUM (BEAKER) (test ynmt=496) 2.1 mg/dL 1.6-2.6 BASIC METABOLIC [id number] 06:18:00 Test Item Value Reference Range Comments SODIUM (BEAKER) (test 142 meq/L 136-145 wxym=066) POTASSIUM (BEAKER) (test 3.7 meq/L 3.5-5.1 mrnh=167) CHLORIDE (BEAKER) (test 109 meq/L 98-107 cjro=589) CO2 (BEAKER) (test 24 meq/L 22-29 abqe=138) BLOOD UREA NITROGEN 12 mg/dL 7-21 (BEAKER) (test nhvs=160) CREATININE (BEAKER) (test 0.78 mg/dL 0.57-1.25 zksp=248) GLUCOSE RANDOM (BEAKER) 87 mg/dL 70-105 (test hbvc=055) CALCIUM (BEAKER) (test 9.4 mg/dL 8.4-10.2 bujv=885) EGFR (BEAKER) (test 85 mL/min/1.73 sq m ESTIMATED GFR IS NOT ovmp=4988) ACCURATE CREATININE CLEARANCE IN PREDICTING GLOMERULAR FILTRATION RATE. ESTIMATED GFR IS NOT APPLICABLE FOR DIALYSIS PATIENTS. [id number] 06:12:00 Test Item Value Reference Range Comments POTASSIUM (BEAKER) (test 4.0 meq/L 3.5-5.1 Specimen slightly hemolyzed wjwv=219) [id number] 09:55:00 Test Item Value Reference Range Comments PHOSPHORUS (BEAKER) (test ktfn=981) 2.5 mg/dL 2.3-4.7 PHENYTOIN LEVEL, [id number] 07:57:00 Test Item Value Reference Range Comments PHENYTOIN (DILANTIN) (BEAKER) (test jhrm=644) 20.0 ug/mL 10.0-20.0 BLOOD GAS, [id number] 05:02:00 Test Item Value Reference Range Comments PH ARTERIAL (BEAKER) (test czfv=154) 7.46 7.35-7.45 PCO2 ARTERIAL (BEAKER) (test xfbm=923) 39 mmHg 35-45 PO2 ARTERIAL (BEAKER) (test eyhw=470) 144 mmHg 80-90 O2 SATURATION ARTERIAL (BEAKER) (test aysi=676) 99.0 % 96.0-97.0 HCO3 ARTERIAL (BEAKER) (test iqyg=654) 27 mmol/L 21-29 BASE EXCESS ARTERIAL (BEAKER) (test hdet=940) 3.0 mmol/L -2.0-3.0 PATIENT TEMPERATURE (BEAKER) (test xkss=1989) 37.0 C FIO2 (BEAKER) (test frpo=5984) 21.0 % BASIC METABOLIC [id number] 04:34:00 Test Item Value Reference Range Comments SODIUM (BEAKER) (test 144 meq/L 136-145 vgwl=009) POTASSIUM (BEAKER) (test 3.5 meq/L 3.5-5.1 pjkd=078) CHLORIDE (BEAKER) (test 112 meq/L 98-107 bwzt=631) CO2 (BEAKER) (test 24 meq/L 22-29 opzb=729) BLOOD UREA NITROGEN 9 mg/dL 7-21 (BEAKER) (test aocr=050) CREATININE (BEAKER) (test 0.80 mg/dL 0.57-1.25 stvy=878) GLUCOSE RANDOM (BEAKER) 108 mg/dL 70-105 (test nsbg=362) CALCIUM (BEAKER) (test 9.2 mg/dL 8.4-10.2 hnjg=174) EGFR (BEAKER) (test 82 mL/min/1.73 sq m ESTIMATED GFR IS NOT isgg=7533) ACCURATE CREATININE CLEARANCE IN PREDICTING GLOMERULAR FILTRATION RATE. ESTIMATED GFR IS NOT APPLICABLE FOR DIALYSIS PATIENTS. [id number] 04:30:00 Test Item Value Reference Range Comments MAGNESIUM (BEAKER) (test pdjt=809) 2.3 mg/dL 1.6-2.6 CBC W/PLT COUNT & AUTO [id number] 04:12:00 Test Item Value Reference Range Comments WHITE BLOOD CELL COUNT (BEAKER) (test yimf=907) 9.7 K/ L 3.5-10.5 RED BLOOD CELL COUNT (BEAKER) (test pzsf=741) 3.07 M/ L 3.93-5.22 HEMOGLOBIN (BEAKER) (test uphy=962) 9.4 GM/DL 11.2-15.7 HEMATOCRIT (BEAKER) (test cdsy=713) 29.4 % 34.1-44.9 MEAN CORPUSCULAR VOLUME (BEAKER) (test lzeo=724) 95.8 fL 79.4-94.8 MEAN CORPUSCULAR HEMOGLOBIN (BEAKER) (test 30.6 pg 25.6-32.2 jmbr=706) MEAN CORPUSCULAR HEMOGLOBIN CONC (BEAKER) (test 32.0 GM/DL 32.2-35.5 lmes=032) RED CELL DISTRIBUTION WIDTH (BEAKER) (test 14.4 % 11.7-14.4 idxr=695) PLATELET COUNT (BEAKER) (test uzrr=954) 182 K/CU MM 150-450 MEAN PLATELET VOLUME (BEAKER) (test dzmw=147) 9.4 fL 9.4-12.3 NUCLEATED RED BLOOD CELLS (BEAKER) (test 0 /100 WBC 0-0 nbly=591) NEUTROPHILS RELATIVE PERCENT (BEAKER) (test 71 % ohuf=960) LYMPHOCYTES RELATIVE PERCENT (BEAKER) (test 21 % lxjx=473) MONOCYTES RELATIVE PERCENT (BEAKER) (test 7 % xhaj=371) EOSINOPHILS RELATIVE PERCENT (BEAKER) (test 0 % ppiv=363) BASOPHILS RELATIVE PERCENT (BEAKER) (test 1 % pxhc=717) NEUTROPHILS ABSOLUTE COUNT (BEAKER) (test 6.89 K/ L 1.56-6.13 fwyp=332) LYMPHOCYTES ABSOLUTE COUNT (BEAKER) (test 2.05 K/ L 1.18-3.74 fpvv=802) MONOCYTES ABSOLUTE COUNT (BEAKER) (test 0.65 K/ L 0.24-0.36 iolg=030) EOSINOPHILS ABSOLUTE COUNT (BEAKER) (test 0.01 K/ L 0.04-0.36 tgom=003) BASOPHILS ABSOLUTE COUNT (BEAKER) (test 0.06 K/ L 0.01-0.08 qjjw=010) IMMATURE GRANULOCYTES-RELATIVE PERCENT (BEAKER) 0 % 0-1 (test mjvk=9630) PHENYTOIN LEVEL, [id number] 22:07:00 Test Item Value Reference Range Comments PHENYTOIN (DILANTIN) (BEAKER) (test nquy=710) 14.2 ug/mL 10.0-20.0 POCT-GLUCOSE [id number] 13:56:00 Test Item Value Reference Range Comments POC-GLUCOSE METER (BEAKER) 119 mg/dL 70-110 TESTED AT [facility] [address] [facility] (test zeoh=2372) [facility] [address] URINE [id number] 11:44:00 Test Item Value Reference Range Comments CULTURE (BEAKER) (test xfen=3690) See comment <10,000 col/mL Gram Negative rodsSPUTUM CULTURE + GRAM [id number] 09:04: 00 Test Item Value Reference Range Comments CULTURE (BEAKER) (test 4+ Normal respiratory rachel nqrz=3756) present GRAM STAIN RESULT (BEAKER) 1+ WBCs (test trgb=7509) GRAM STAIN RESULT (BEAKER) 0-5 epithelial cells (test hlrx=92661) GRAM STAIN RESULT (BEAKER) 2+ gram positive cocci in chains (test ruev=94220) and pairs [id number] 05:12:00 Test Item Value Reference Range Comments MAGNESIUM (BEAKER) (test 2.5 mg/dL 1.6-2.6 Specimen slightly hemolyzed jqnv=336) [id number] 05:12:00 Test Item Value Reference Range Comments PHOSPHORUS (BEAKER) (test 2.2 mg/dL 2.3-4.7 Specimen slightly hemolyzed rgua=739) BASIC METABOLIC [id number] 05:12:00 Test Item Value Reference Range Comments SODIUM (BEAKER) (test 142 meq/L 136-145 icmg=417) POTASSIUM (BEAKER) (test 4.0 meq/L 3.5-5.1 Specimen slightly gejy=028) hemolyzed CHLORIDE (BEAKER) (test 108 meq/L 98-107 zwzq=942) CO2 (BEAKER) (test 22 meq/L 22-29 hevx=113) BLOOD UREA NITROGEN 11 mg/dL 7-21 (BEAKER) (test urop=449) CREATININE (BEAKER) (test 0.92 mg/dL 0.57-1.25 Specimen slightly qyin=642) hemolyzed GLUCOSE RANDOM (BEAKER) 94 mg/dL 70-105 (test xfpf=985) CALCIUM (BEAKER) (test 9.7 mg/dL 8.4-10.2 whjq=486) EGFR (BEAKER) (test mL/min/1.73 sq m INSUFFICIENT CLINICAL DATA ghmj=6769) TO CALCULATE ESTIMATED GFR. CBC W/PLT COUNT & AUTO [id number] 05:01:00 Test Item Value Reference Range Comments WHITE BLOOD CELL COUNT (BEAKER) (test cqte=756) 12.6 K/ L 3.5-10.5 RED BLOOD CELL COUNT (BEAKER) (test alfl=006) 3.42 M/ L 3.93-5.22 HEMOGLOBIN (BEAKER) (test jace=426) 10.3 GM/DL 11.2-15.7 HEMATOCRIT (BEAKER) (test olof=968) 32.4 % 34.1-44.9 MEAN CORPUSCULAR VOLUME (BEAKER) (test czdr=826) 94.7 fL 79.4-94.8 MEAN CORPUSCULAR HEMOGLOBIN (BEAKER) (test 30.1 pg 25.6-32.2 ccup=079) MEAN CORPUSCULAR HEMOGLOBIN CONC (BEAKER) (test 31.8 GM/DL 32.2-35.5 vnav=330) RED CELL DISTRIBUTION WIDTH (BEAKER) (test 14.2 % 11.7-14.4 ldxn=152) PLATELET COUNT (BEAKER) (test qtfe=400) 219 K/CU MM 150-450 MEAN PLATELET VOLUME (BEAKER) (test jxux=735) 10.0 fL 9.4-12.3 NUCLEATED RED BLOOD CELLS (BEAKER) (test 0 /100 WBC 0-0 xclc=308) NEUTROPHILS RELATIVE PERCENT (BEAKER) (test 57 % nvtf=751) LYMPHOCYTES RELATIVE PERCENT (BEAKER) (test 35 % navr=861) MONOCYTES RELATIVE PERCENT (BEAKER) (test 7 % nqja=704) EOSINOPHILS RELATIVE PERCENT (BEAKER) (test 0 % zjwo=876) BASOPHILS RELATIVE PERCENT (BEAKER) (test 1 % qrvz=161) NEUTROPHILS ABSOLUTE COUNT (BEAKER) (test 7.19 K/ L 1.56-6.13 mhqm=071) LYMPHOCYTES ABSOLUTE COUNT (BEAKER) (test 4.39 K/ L 1.18-3.74 osje=198) MONOCYTES ABSOLUTE COUNT (BEAKER) (test 0.91 K/ L 0.24-0.36 gyqz=029) EOSINOPHILS ABSOLUTE COUNT (BEAKER) (test 0.01 K/ L 0.04-0.36 sdwg=300) BASOPHILS ABSOLUTE COUNT (BEAKER) (test 0.06 K/ L 0.01-0.08 ovtw=938) IMMATURE GRANULOCYTES-RELATIVE PERCENT (BEAKER) 0 % 0-1 (test gjxs=1638) [id number] 21:19:00 Test Item Value Reference Range Comments POTASSIUM (BEAKER) (test imkc=866) 3.8 meq/L 3.5-5.1 POCT-GLUCOSE [id number] 18:19:00 Test Item Value Reference Range Comments POC-GLUCOSE METER (BEAKER) 113 mg/dL 70-110 TESTED AT [address] (test ahyz=9488) [place] [address] POCT-GLUCOSE [id number] 13:32:00 Test Item Value Reference Range Comments POC-GLUCOSE METER (BEAKER) 107 mg/dL 70-110 TESTED AT [address] (test cnsu=9601) [place] [address] POCT-GLUCOSE [id number] 07:32:00 Test Item Value Reference Range Comments POC-GLUCOSE METER (BEAKER) 105 mg/dL 70-110 TESTED AT [address] (test mcpy=1696) [place] [address] BASIC METABOLIC [id number] 05:54:00 Test Item Value Reference Range Comments SODIUM (BEAKER) (test 143 meq/L 136-145 ilfk=171) POTASSIUM (BEAKER) (test 3.3 meq/L 3.5-5.1 Specimen slightly wjjj=729) hemolyzed CHLORIDE (BEAKER) (test 109 meq/L 98-107 mekq=982) CO2 (BEAKER) (test 24 meq/L 22-29 vqyb=265) BLOOD UREA NITROGEN 11 mg/dL 7-21 (BEAKER) (test obuy=939) CREATININE (BEAKER) (test 0.79 mg/dL 0.57-1.25 Specimen slightly xfex=855) hemolyzed GLUCOSE RANDOM (BEAKER) 98 mg/dL 70-105 (test rsce=142) CALCIUM (BEAKER) (test 9.2 mg/dL 8.4-10.2 wfwt=119) EGFR (BEAKER) (test mL/min/1.73 sq m INSUFFICIENT CLINICAL DATA hgzj=9440) TO CALCULATE ESTIMATED GFR. BLOOD GAS, [id number] 05:44:00 Test Item Value Reference Range Comments PH ARTERIAL (BEAKER) (test fuvr=158) 7.45 7.35-7.45 PCO2 ARTERIAL (BEAKER) (test dlkt=751) 40 mmHg 35-45 PO2 ARTERIAL (BEAKER) (test iwzy=435) 59 mmHg 80-90 O2 SATURATION ARTERIAL (BEAKER) (test vgfv=932) 91.1 % 96.0-97.0 HCO3 ARTERIAL (BEAKER) (test xfgr=690) 27 mmol/L 21-29 BASE EXCESS ARTERIAL (BEAKER) (test vgqd=957) 2.6 mmol/L -2.0-3.0 PATIENT TEMPERATURE (BEAKER) (test igsp=9976) 37.5 C FIO2 (BEAKER) (test mxnb=8324) 40.0 % [id number] 05:38:00 Test Item Value Reference Range Comments MAGNESIUM (BEAKER) (test 2.4 mg/dL 1.6-2.6 Specimen slightly hemolyzed mxll=369) [id number] 05:38:00 Test Item Value Reference Range Comments PHOSPHORUS (BEAKER) (test 2.0 mg/dL 2.3-4.7 Specimen slightly hemolyzed yqnd=011) CBC W/PLT COUNT & AUTO [id number] 05:14:00 Test Item Value Reference Range Comments WHITE BLOOD CELL COUNT (BEAKER) (test sdbq=903) 9.8 K/ L 3.5-10.5 RED BLOOD CELL COUNT (BEAKER) (test ayua=249) 3.07 M/ L 3.93-5.22 HEMOGLOBIN (BEAKER) (test ikzj=225) 9.5 GM/DL 11.2-15.7 HEMATOCRIT (BEAKER) (test pysx=345) 29.6 % 34.1-44.9 MEAN CORPUSCULAR VOLUME (BEAKER) (test bpso=102) 96.4 fL 79.4-94.8 MEAN CORPUSCULAR HEMOGLOBIN (BEAKER) (test 30.9 pg 25.6-32.2 yvvt=448) MEAN CORPUSCULAR HEMOGLOBIN CONC (BEAKER) (test 32.1 GM/DL 32.2-35.5 lzel=920) RED CELL DISTRIBUTION WIDTH (BEAKER) (test 14.2 % 11.7-14.4 hzdp=921) PLATELET COUNT (BEAKER) (test cotn=605) 192 K/CU MM 150-450 MEAN PLATELET VOLUME (BEAKER) (test cptp=014) 10.0 fL 9.4-12.3 NUCLEATED RED BLOOD CELLS (BEAKER) (test 0 /100 WBC 0-0 vvhx=602) NEUTROPHILS RELATIVE PERCENT (BEAKER) (test 74 % zied=289) LYMPHOCYTES RELATIVE PERCENT (BEAKER) (test 18 % ekox=559) MONOCYTES RELATIVE PERCENT (BEAKER) (test 8 % isgn=921) EOSINOPHILS RELATIVE PERCENT (BEAKER) (test 0 % kvjv=383) BASOPHILS RELATIVE PERCENT (BEAKER) (test 0 % ifgm=600) NEUTROPHILS ABSOLUTE COUNT (BEAKER) (test 7.28 K/ L 1.56-6.13 ohrc=266) LYMPHOCYTES ABSOLUTE COUNT (BEAKER) (test 1.72 K/ L 1.18-3.74 lczs=698) MONOCYTES ABSOLUTE COUNT (BEAKER) (test 0.76 K/ L 0.24-0.36 xtto=071) EOSINOPHILS ABSOLUTE COUNT (BEAKER) (test 0.00 K/ L 0.04-0.36 gidd=463) BASOPHILS ABSOLUTE COUNT (BEAKER) (test 0.03 K/ L 0.01-0.08 kzur=205) IMMATURE GRANULOCYTES-RELATIVE PERCENT (BEAKER) 1 % 0-1 (test dhbu=9773) RAD, CHEST, 1 VIEW, NON [id number] 03:01:00Reason for exam:->ETT verficiationShould this be performed [...] MDReport Verified Date/Time: 2016 03:01:35 Reading Location: [address] Reading Room TROPONIN [id number] 02:55:00 Test Item Value Reference Range Comments TROPONIN I (BEAKER) (test bvjo=900) 0.31 ng/mL 0.00-0.03 Effective 01/24/2014: Reference Range [...] and persistent tachyarrhythmia.CREATINE KINASE (CK), TOTAL AND [id number] 02:36:00 Test Item Value Reference Range Comments CREATINE KINASE TOTAL (BEAKER) (test orey=781) 260 U/L 29-200 CREATINE KINASE-MB (BEAKER) (test vpip=264) 4.5 ng/mL 0.0-6.6 CREATINE KINASE-MB INDEX (BEAKER) (test iyqs=541) 1.7 % Effective 01/24/2014: CK-MB Reference Range ChangeNew: 0.0-6.6 Previous: 0.0- 4.9CK-MB Reference Range:<6.7 Normal6.7-10.0 Borderline>10.0 AbnormalPOCT-GLUCOSE [id number] 00:18:00 Test Item Value Reference Range Comments POC-GLUCOSE METER (BEAKER) 103 mg/dL 70-110 TESTED AT [address] (test cqjc=3825) [place] [address] BASIC METABOLIC [id number] 18:32:00 Test Item Value Reference Range Comments SODIUM (BEAKER) (test 142 meq/L 136-145 rhwc=305) POTASSIUM (BEAKER) (test 3.0 meq/L 3.5-5.1 izdx=881) CHLORIDE (BEAKER) (test 107 meq/L 98-107 womp=664) CO2 (BEAKER) (test 22 meq/L 22-29 usel=791) BLOOD UREA NITROGEN 14 mg/dL 7-21 (BEAKER) (test fonf=388) CREATININE (BEAKER) (test 0.97 mg/dL 0.57-1.25 rfoa=493) GLUCOSE RANDOM (BEAKER) 119 mg/dL 70-105 (test qxfn=423) CALCIUM (BEAKER) (test 8.9 mg/dL 8.4-10.2 nwhb=806) EGFR (BEAKER) (test mL/min/1.73 sq m INSUFFICIENT CLINICAL DATA tgar=7714) TO CALCULATE ESTIMATED GFR. [id number] 18:23:00 Test Item Value Reference Range Comments PHOSPHORUS (BEAKER) (test ynjy=057) 1.6 mg/dL 2.3-4.7 [id number] 18:23:00 Test Item Value Reference Range Comments MAGNESIUM (BEAKER) (test hfah=929) 1.6 mg/dL 1.6-2.6 POCT-GLUCOSE [id number] 18:16:00 Test Item Value Reference Range Comments POC-GLUCOSE METER (BEAKER) 118 mg/dL 70-110 TESTED AT [address] (test upwg=5312) [place] [address] TROPONIN [id number] 16:10:00 Test Item Value Reference Range Comments TROPONIN I (BEAKER) (test jvjx=148) 0.27 ng/mL 0.00-0.03 Effective 01/24/2014: Reference Range [...] and persistent tachyarrhythmia.CREATINE KINASE (CK), TOTAL AND [id number] 15:44:00 Test Item Value Reference Range Comments CREATINE KINASE TOTAL (BEAKER) (test daju=373) 117 U/L 29-200 CREATINE KINASE-MB (BEAKER) (test sxiy=573) 5.0 ng/mL 0.0-6.6 CREATINE KINASE-MB INDEX (BEAKER) (test uqow=096) 4.3 % Effective 01/24/2014: CK-MB Reference Range ChangeNew: 0.0-6.6 Previous: 0.0- 4.9CK-MB Reference Range:<6.7 Normal6.7-10.0 Borderline>10.0 AbnormalURINALYSIS W/ [id number] 15:35:00 Test Item Value Reference Range Comments COLOR (BEAKER) (test irtg=956) Light Yellow CLARITY (BEAKER) (test blqo=470) Clear SPECIFIC GRAVITY UA (BEAKER) (test jwcj=243) 1.006 1.001-1.035 PH UA (BEAKER) (test veyv=084) 7.5 5.0-8.0 PROTEIN UA (BEAKER) (test lukj=112) Negative Negative GLUCOSE UA (BEAKER) (test avcr=400) Negative Negative KETONES UA (BEAKER) (test xqji=860) Negative Negative BILIRUBIN UA (BEAKER) (test bkvk=862) Negative Negative BLOOD UA (BEAKER) (test yjac=161) Trace Negative NITRITE UA (BEAKER) (test avfc=824) Negative Negative LEUKOCYTE ESTERASE UA (BEAKER) (test kpyx=913) Negative Negative UROBILINOGEN UA (BEAKER) (test sitj=314) 0.2 mg/dL 0.2-1.0 RBC UA (BEAKER) (test nbyk=683) 2 /HPF WBC UA (BEAKER) (test lcuu=536) 2 /HPF BACTERIA (BEAKER) (test oewe=966) Rare SQUAMOUS EPITHELIAL (BEAKER) (test rils=464) 1 /HPF SOURCE(BEAKER) (test bnyo=7533) Urine, [facility] HEPATIC FUNCTION [id number] 15:06:00 Test Item Value Reference Range Comments TOTAL PROTEIN (BEAKER) (test zdav=967) 7.4 gm/dL 6.0-8.3 ALBUMIN (BEAKER) (test jzdb=4813) 3.6 g/dL 3.5-5.0 BILIRUBIN TOTAL (BEAKER) (test eaci=755) 0.3 mg/dL 0.2-1.2 BILIRUBIN DIRECT (BEAKER) (test nils=620) 0.2 mg/dL 0.1-0.5 ALKALINE PHOSPHATASE (BEAKER) (test zctb=741) 97 U/L 40-150 AST (SGOT) (BEAKER) (test nmpr=617) 20 U/L 5-34 ALT (SGPT) (BEAKER) (test upca=067) 8 U/L 6-55 PROTHROMBIN [id number] 14:53:00 Test Item Value Reference Range Comments PROTIME (BEAKER) (test fzxs=089) 17.0 seconds 11.7-14.7 INR (BEAKER) (test iltv=047) 1.4 <=5.9 RECOMMENDED COUMADIN/WARFARIN INR THERAPY RANGESSTANDARD DOSE: 2.0 - 3.0 Includes: PROPHYLAXIS forvenous thrombosis, systemic embolization; TREATMENT for venous thrombosis and/or pulmonary embolus.HIGH RISK: Target INR is 2.5-3.5 for patients with mechanical heart valves.[id number] 14:53:00 Test Item Value Reference Range Comments PARTIAL THROMBOPLASTIN TIME (BEAKER) (test 33.9 seconds 22.5-36.0 thtt=961) BLOOD GAS, [id number] 14:44:00 Test Item Value Reference Range Comments PH ARTERIAL (BEAKER) (test boqw=174) 7.36 7.35-7.45 PCO2 ARTERIAL (BEAKER) (test wqaa=217) 46 mmHg 35-45 PO2 ARTERIAL (BEAKER) (test ukiw=947) 51 mmHg 80-90 O2 SATURATION ARTERIAL (BEAKER) (test akdg=116) 84.2 % 96.0-97.0 HCO3 ARTERIAL (BEAKER) (test tgoe=598) 25 mmol/L 21-29 BASE EXCESS ARTERIAL (BEAKER) (test vqqp=099) -0.6 mmol/L -2.0-3.0 PATIENT TEMPERATURE (BEAKER) (test tsfp=9586) 37.0 C FIO2 (BEAKER) (test nqxt=5008) 40.0 %
[2019-05-24 09:37] LABS: Absolute Lymphocytes (CBC) 1.7 K/uL (0.7-4.9); Basophils % 1.2 % (0-1.3); Hematocrit 27.7 % (36.0-45.0); MPV 7.5 fL (7.6-11.3); RBC Red Blood Cell Count 2.78 M/uL (3.86-4.86)
[2019-05-24 09:51] LABS: Potassium 3.4 mmol/L (3.5-5.1)
--- NOTE | 2019-05-24 10:07 | RAD REPORT ---
EXAM DESCRIPTION: US - Extremity Nonvascular Limited - 05/24/2019 9:45 am CLINICAL HISTORY: Left lower ext swelling, possible abscess, eval size/depth COMPARISON: None FINDINGS: Limited sonographic evaluation was performed of the posterolateral left calf with the anupam ent has localized pain and swelling. Overlying subcutaneous fatty tissues are edematous. At the area of concern, there is a 7 x 3 x 5 cm h eterogeneous hypoechoic mass. No thickened rim or rind identified. Doppler evaluation shows no production internship al blood flow and no increased blood flow along the rim or rind of this collection. The mass has the appearance of an old hematoma. There is overlap in the characteristics of hematoma and abscess. Secon ramon infection of the hematoma is possible. The superficial margin of this mass is 4 mm below the skin surface. IMPRESSION: A superficial 7 x 3 x 5 cm heterogeneous hypoechoic mass is present in the soft tissues posterolateral left calf at the area of concern. Overlying soft tissues are edematous. No other focal abnormality seen. The mass has the appearance of an old hematoma. However, is secondarily infected hematoma or an absce ss can have similar characteristics. The superficial margin of the mass is 4 mm below the skin surface.
[2019-05-24] MEDS ORDERED: NA CHLORIDE 0.9% 500 ML ONE (10:32)
[2019-05-24] MEDS ORDERED: VANCOMYCIN/NS 1 gm 1 GM/250 ML BAG IV ONE (10:45)
--- NOTE | 2019-05-24 10:47 | ER ---
Nurse's Notes [facility] Name: Lizette Evans Age: 88 yrs Sex: Female : 1930 Arrival Date: 05/24/2019 Time: 08:55 Bed 19 Private MD: Diagnosis: Infected hematoma left lower leg;Abscess, left lower leg Presentation: 05/23 09:10 Chief complaint: Patient's son or daughter states: bump on leg left leg, reports fever em at 99.9 today, was seen for bump on leg before and was told it was not a blood clot, redness and swelling noted. Coronavirus screen: The patient has NOT traveled to a country currently being monitored by the [facility] within the last 14 days. The patient has NOT had contact with any known and/or suspected case of coronavirus. Ebola Screen: Patient negative for fever greater than or equal to 101.5 degrees Fahrenheit, and additional compatible Ebola Virus Disease symptoms Patient denies exposure to infectious person. Patient denies travel to an Ebola-affected area in the 21 days before illness onset. No symptoms or risks identified at this time. Initial Sepsis Screen: Does the patient meet any 2 criteria? No. Patient's initial sepsis screen is negative. Does the patient have a suspected source of infection? Yes: Skin breakdown/wound. Risk Assessment: Do you want to hurt yourself or someone else? Patient reports no desire to harm self or others. 09:10 Method Of Arrival: Wheelchair em 09:10 Acuity: ERICKA 3 em Historical: - Allergies: 09:16 PENICILLINS; em - Home Meds: 09:16 allopurinol 100 mg Oral tab 2 tabs once daily [Active]; amlodipine 10 mg tab 1 tab once em daily [Active]; atenolol 50 mg Oral tab 1 tab once daily [Active]; buspirone 10 mg Oral tab 1 tab 2 times per day [Active]; escitalopram oxalate 10 mg oral tab 1 tab [Active]; furosemide 40 mg Oral tab 1.5 tab once daily [Active]; galantamine 4 mg Oral tab 1 tab 2 times per day [Active]; levetiracetam 750 mg Oral tab 1 tab every morning [Active]; losartan 50 mg Oral tab 1 tab nightly [Active]; Risperdal 0.5 mg Oral tab 1 tab nightly [Active]; warfarin 2 mg oral tab 1 tab [Active]; carbidopa-levodopa 25-100 mg Oral tab [Active]; Protonix 40 mg Oral TbEC [Active]; - PMHx: 09:16 ADD/ADHD; CVA; DVT; Hypertension; Seizures; TIA; em - Immunization history:: Adult Immunizations up to date. - Social history:: Smoking status: Patient denies any tobacco usage or history of. - Family history:: not pertinent. - Hospitalizations: : No recent hospitalization is reported. Screenin:17 Abuse screen: Denies threats or abuse. Nutritional screening: No deficits noted. em Tuberculosis screening: No symptoms or risk factors identified. Fall Risk None identified. Assessment: 09:10 General: Appears in no apparent distress. comfortable, Behavior is calm, cooperative, em Reports fever for 1-2 days. Pain: Complains of pain in left calf Pain currently is 10 out of 10 on a pain scale. Pain began about 3 weeks ago. Neuro: Level of Consciousness is awake, alert, obeys commands, Oriented to person, place, time, situation, Appropriate for age. Cardiovascular: Capillary refill < 3 seconds Patient's skin is warm and dry. Respiratory: Airway is patent Respiratory effort is even, unlabored, Respiratory pattern is regular, symmetrical. Derm: Skin is intact, is thin, Skin is pink, warm \T\ dry. Wound noted left calf Wound is red and hot to touch, no drainage noted. Musculoskeletal: Capillary refill < 3 seconds, Range of motion: intact in all extremities. 11:57 Reassessment: Patient appears in no apparent distress at this time. Patient and/or em family updated on plan of care and expected duration. Pain level reassessed. Patient is alert, oriented x 3, equal unlabored respirations, skin warm/dry/pink. Vital Signs: 09:10 BP 102 / 54; Pulse 70; Resp 18; Temp 97.5(O); Pulse Ox 99% on R/A; Weight 74.84 kg; em Height 5 ft. 0 in. (152.40 cm); Pain 10/10; 10:15 BP 95 / 52; Pulse 69; Resp 18; Pulse Ox 97% on R/A; em 10:45 BP 119 / 51; Pulse 67; Resp 18; Pulse Ox 98% on R/A; em 11:57 BP 119 / 53; Pulse 72; Resp 18; Pulse Ox 100% on R/A; em 09:10 Body Mass Index 32.22 (74.84 kg, 152.40 cm) em ED Course: 08:55 Patient arrived in ED. rg4 08:57 Connor Burton MD is Attending Physician. rn 08:57 Angelo Wiley RN is Primary Nurse. em 09:12 Triage completed. em 09:16 Arm band placed on. em 09:16 Patient has correct armband on for positive identification. Bed in low position. Call em light in reach. Side rails up X2. Adult w/ patient. Pulse ox on. NIBP on. 09:30 Inserted saline lock: 20 gauge in right forearm, using aseptic technique. Blood em collected. 09:30 Initial lab(s) drawn, by me, sent to lab. First set of blood cultures drawn by me. em 09:45 US Extrmty Nonvasular Limited In Process Unspecified. EDMS 10:45 Gerard Fournier DO is Hospitalizing Provider. rn 12:21 No provider procedures requiring assistance completed. Patient admitted, IV remains in em place. Administered Medications: 10:38 Drug: NS 0.9% 500 ml Route: IV; Rate: bolus; Site: right forearm; em 11:09 Follow up: IV Status: Completed infusion; IV Intake: 500ml em 11:08 Drug: vancoMYCIN 1 grams Route: IVPB; Infused Over: 2 hrs; Site: right forearm; em Intake: 11:09 IV: 500ml; Total: 500ml. em Outcome: 10:46 Decision to Hospitalize by Provider. rn 12:45 Admitted to Med/surg accompanied by tech, via stretcher, room 430, with chart, Report em called to ALIYA Caal 12:45 Condition: good 12:45 Instructed on the need for admit, Demonstrated understanding of instructions. 12:50 Patient left the ED. em Signatures: Dispatcher [employer] EDOR Angelo Wiley, RN RN em Connor Burton MD MD rn Garcia, Rubi rg4
--- NOTE | 2019-05-24 10:48 | EDPHYS ---
Physician Documentation [facility] Name: Lizette Evans Age: 88 yrs Sex: Female : 1930 Arrival Date: 05/24/2019 Time: 08:55 Bed 19 Private MD: ED Physician Connor Burton HPI: 05/23 09:04 This 88 yrs old Black Female presents to ER via Unassigned with complaints of Leg Pain, rn Fever. 09:04 The patient presents with pain, swelling. The complaints affect the left calf. Onset: rn The symptoms/episode began/occurred 2 week(s) ago. Modifying factors: The symptoms are alleviated by nothing. the symptoms are aggravated by movement. Severity of symptoms: At their worst the symptoms were moderate, in the emergency department the symptoms are unchanged. The patient has not experienced similar symptoms in the past. Reports leg pain and fever, started small, present for about 2 weeks, tender to touch, no trauma, is bedbound. . Historical: - Allergies: 09:16 PENICILLINS; em - Home Meds: 09:16 allopurinol 100 mg Oral tab 2 tabs once daily [Active]; amlodipine 10 mg tab 1 tab once em daily [Active]; atenolol 50 mg Oral tab 1 tab once daily [Active]; buspirone 10 mg Oral tab 1 tab 2 times per day [Active]; escitalopram oxalate 10 mg oral tab 1 tab [Active]; furosemide 40 mg Oral tab 1.5 tab once daily [Active]; galantamine 4 mg Oral tab 1 tab 2 times per day [Active]; levetiracetam 750 mg Oral tab 1 tab every morning [Active]; losartan 50 mg Oral tab 1 tab nightly [Active]; Risperdal 0.5 mg Oral tab 1 tab nightly [Active]; warfarin 2 mg oral tab 1 tab [Active]; carbidopa-levodopa 25-100 mg Oral tab [Active]; Protonix 40 mg Oral TbEC [Active]; - PMHx: 09:16 ADD/ADHD; CVA; DVT; Hypertension; Seizures; TIA; em - Immunization history:: Adult Immunizations up to date. - Social history:: Smoking status: Patient denies any tobacco usage or history of. - Family history:: not pertinent. - Hospitalizations: : No recent hospitalization is reported. ROS: 09:04 Constitutional: + fever Neck: Negative for injury, pain, and swelling, Cardiovascular: rn Negative for chest pain, palpitations, and edema, Respiratory: Negative for shortness of breath, cough, wheezing, and pleuritic chest pain, Abdomen/GI: Negative for abdominal pain, nausea, vomiting, diarrhea, and constipation, MS/Extremity: + left leg pain and swelling Skin: + warmth and pain to LLE Neuro: Negative for headache, weakness, numbness, tingling, and seizure. Exam: 09:04 Constitutional: This is a well developed, well nourished patient who is awake, alert, rn and in no acute distress. ENT: dry MM Cardiovascular: Regular rate and rhythm . No pulse deficits. Respiratory: No increased work of breathing, no retractions or nasal flaring. Abdomen/GI: soft, non-tender Skin: Warm, dry MS/ Extremity: Pulses equal, no cyanosis. + area of unduration approx 10cm x 8cm left lateral lower ext and calf, + central fluctuance and warmth. Neuro: Awake and alert, GCS 15 Vital Signs: 09:10 BP 102 / 54; Pulse 70; Resp 18; Temp 97.5(O); Pulse Ox 99% on R/A; Weight 74.84 kg; em Height 5 ft. 0 in. (152.40 cm); Pain 10/10; 10:15 BP 95 / 52; Pulse 69; Resp 18; Pulse Ox 97% on R/A; em 10:45 BP 119 / 51; Pulse 67; Resp 18; Pulse Ox 98% on R/A; em 11:57 BP 119 / 53; Pulse 72; Resp 18; Pulse Ox 100% on R/A; em 09:10 Body Mass Index 32.22 (74.84 kg, 152.40 cm) em MDM: 08:57 Patient medically screened. rn 10:41 Differential diagnosis: abscess, hematoma. Data reviewed: vital signs, nurses notes, endoscopy rn test result(s), radiologic studies, ultrasound, and as a result, I will admit patient. Counseling: I had a detailed discussion with the patient and/or guardian regarding: the historical points, exam findings, and any diagnostic results supporting the discharge/admit diagnosis, lab results, radiology results, the need for further work-up and treatment in the hospital. Response to treatment: the patient's symptoms have mildly improved after treatment, and as a result, I will admit patient. Admission orders: after a detailed discussion of the patient's condition and case, the admit orders are written by me. ED course: Consulted with Dr. Jensen, will admit with IV abx to hospitalist, and likely OR drainage of infected hematoma/abscess. 05/23 09:04 Order name: CBC with Diff; Complete Time: 10:27 rn 05/23 09:04 Order name: Basic Metabolic Panel; Complete Time: 10:27 rn 05/23 09:04 Order name: Blood Culture Adult (2) rn 05/23 09:04 Order name: Procalcitonin; Complete Time: 10:27 rn 05/23 10:38 Order name: Lactate; Complete Time: 11:41 em 05/23 10:55 Order name: PT-INR; Complete Time: 12:27 rn 05/23 09:04 Order name: IV Start; Complete Time: 09:32 rn 05/23 09:04 Order name: US Extrmty Nonvasular Limited; Complete Time: 10:33 rn Administered Medications: 10:38 Drug: NS 0.9% 500 ml Route: IV; Rate: bolus; Site: right forearm; em 11:09 Follow up: IV Status: Completed infusion; IV Intake: 500ml em 11:08 Drug: vancoMYCIN 1 grams Route: IVPB; Infused Over: 2 hrs; Site: right forearm; em Disposition: 05/24/19 10:46 Hospitalization ordered by Gerard Fournier for Inpatient Admission. Preliminary diagnosis are Infected hematoma left lower leg, Abscess, left lower leg. - Bed requested for Telemetry/MedSurg (Inpatient). - Status is Inpatient Admission. em - Condition is Stable. - Problem is new. - Symptoms have improved. Signatures: Dispatcher [employer] Florencia Bennett RN RN dw Munoz, Edgar, RN RN em Nieto, Roman, MD MD rn Attema, Lee, HYPO DIPPER-C HYPO DIPPER-Cla1 Corrections: (The following items were deleted from the chart) 11:48 10:46 Hospitalization Ordered by Gerard Fournier DO for Inpatient Admission. Preliminary dw diagnosis is Infected hematoma left lower leg; Abscess, left lower leg. Bed requested for Telemetry/MedSurg (Inpatient). Status is Inpatient Admission. Condition is Stable. Problem is new. Symptoms have improved. rn 12:50 11:48 05/24/2019 10:46 Hospitalization Ordered by Gerard Fournier DO for Inpatient em Admission. Preliminary diagnosis is Infected hematoma left lower leg; Abscess, left lower leg. Bed requested for Telemetry/MedSurg (Inpatient). Status is Inpatient Admission. Condition is Stable. Problem is new. Symptoms have improved. dw
--- NOTE | 2019-05-24 12:10 | P.HP ---
Certification for Inpatient Patient admitted to: Inpatient With expected LOS: >2 Midnights Patient will require the following post-hospital care: Home Health Services Practitioner: I am a practitioner with admitting privileges, knowledge of patient current condition, hospital course, and medical plan of care. Services: Services provided to patient in accordance with Admission requirements found in Title 42 Section 412.3 of the Code of Federal Regulations Patient History Date of Service: 05/24/19 Primary Care Provider: NATASHA Hightower; Cardiology-Dr. Benavides; Neurology-Dr. Baxter Reason for admission: Lower extremity calf pain History of Present Illness: 88-year-old female with history of CAD, CVA, seizure disorder, atrial fibrillation on chronic anti coagulation therapy-Coumadin, hypertension, GERD, Parkinson's and dementia. Patient presented with left calf pain. Most information came from the daughter who was present. She reports that she had a possibly Dunbar cyst to the left Knee region. Then over the last 2-3 weeks this appear to have ruptured as the daughter in noted edema from the knee to the calf. Over the last several days she has been having increasing pain, erythema to the left lateral calf region. Patient reports fever. Pain rated above 8. She was seen by her home health agent today. It was recommended she go to the ER for further evaluation and treatment. Patient was evaluated in the emergency room. Vital signs stable. White count 9.8, hemoglobin 9.0. Platelet count 275. INR pending at this time. Lactic acid and pro calcitonin within normal range. Sodium 140, potassium 3.4, BUN of 20, creatinine 1.32 with a GFR 46. Venous Doppler of the lower extremity showed superficial 7 x 3 x 5 cm heterogeneous hypoechoic mass present in the soft tissues posterior lateral left calf region. This likely is an old hematoma suspect infected. Superficial margin of the mass this 4 mm pillow the skin surface. Patient was started on IV vancomycin in the ER. ER spoke to the ER physician. Patient admitted for further evaluation and treatment. When I saw the patient the ER, she did not appear in any distress. She did appear septic. Family at bedside. Allergies Penicillins Allergy (Verified 01/12/19 11:18) UNKNOWN Home medications list reviewed: Yes Home Medications: Amlodipine Besylate 1 tab PO [id number] 04/08/18 Escitalopram Oxalate [Lexapro] 10 mg PO DAILY 04/08/18 Furosemide 1.5 tab PO DAILY 04/08/18 Levetiracetam [Keppra] 0.5 tab PO BEDTIME 04/08/18 Levetiracetam [Keppra] 750 mg PO DAILY 04/08/18 Losartan Potassium 50 mg PO BEDTIME 04/08/18 Tolterodine Tartrate [Detrol] 1 tab PO BID 04/08/18 allopurinoL [Allopurinol] 2 tab PO DAILY 04/08/18 atenoloL [Atenolol] 1 tab PO [id number] 04/08/18 lamoTRIgine [Lamotrigine] 1 tab PO BID 04/08/18 risperiDONE [Risperidone] 1 tab PO BEDTIME 04/08/18 Buspirone HCl [Buspar] 0.5 tab PO BID 05/14/18 Galantamine HBr [Razadyne] 4 mg PO BID 05/14/18 Carbidopa/Levodopa [Carbidopa-Levo 25-100 mg Odt] 1 each PO BID 01/12/19 Potassium Chloride [Micro-K] 10 meq PO DAILY 01/12/19 Warfarin Sodium [Coumadin*] 4 mg PO DAILY 5 PM 01/12/19 - Past Medical/Surgical History Diabetic: No -: HTN -: Chronic kidney disease stage 3 -: Coronary disease with previous stent -: Parkinson's -: Chronic allergies -: Seizure disorder -: History of DVT -: A. fibrillation on chronic anti coagulation -: cardiac stents Psychosocial/ Personal History: She is a , has 14 children, she lives at home. Family takes care of her. - Family History Family History: Reviewed- Non-Contributory - Family History Mother -: Diabetes Brother -: Seizures - Social History Smoking Status: Never smoker Alcohol use: No CD- Drugs: No Caffeine use: Yes Place of Residence: Home Review of Systems General: Fever, As per HPI Eyes: Unremarkable ENT: Unremarkable Respiratory: Unremarkable Cardiovascular: Unremarkable Gastrointestinal: Unremarkable Genitourinary: Unremarkable Musculoskeletal: As per HPI (Pain to the left lower extremity) Integumentary: As per HPI Neurological: Unremarkable Lymphatics: Unremarkable Physical Examination - Physical Exam General: Alert, In no apparent distress, Cooperative, Demented (Mild) HEENT: Atraumatic, Normocephalic, EOMI Neck: Supple Respiratory: Clear to auscultation bilaterally, Normal air movement Cardiovascular: Normal pulses, Regular rate/rhythm Gastrointestinal: Normal bowel sounds, No tenderness, No masses, No rebound, No guarding Musculoskeletal: Other (Posterior lateral calf region has area of erythema and pain.) Integumentary: Tenderness/swelling (To the left posterior lateral calf region), Other (Multiple decubitus ulcers to the sacral region) Neurological: Normal speech, Normal strength at 5/5 x4 extr, Normal tone, Other (Patient is bed-bound.), Dementia (Mild dementia) - Studies Laboratory Data (last 24 hrs) 05/24/19 09:30: Sodium 140, Potassium 3.4 L, BUN 20 H, Creatinine 1.32 H, Glucose 97 05/24/19 09:30: WBC 9.8, Hgb 9.0 L, Hct 27.7 L, Plt Count 275 Assessment and Plan - Plan Impression: Posterior lateral left infected hematoma likely from ruptured Dunbar's cyst Atrial fibrillation on chronic anti coagulation therapy-Coumadin Multiple sacral decubitus ulcers, chronic Seizure disorder History of CVA Hypertension GERD Dementia Plan: Posterior lateral left infected hematoma likely from ruptured Dunbar's cyst: Patient admitted for further evaluation and treatment. Procalcitonin and lactic acid within normal range. Patient is not septic. Will start IV vancomycin. ER discuss case with surgery. Will discuss further with surgery. Anticipate no surgical intervention. Will monitor on antibiotic therapy. Will pharmacy monitor and adjust medication. Awaiting INR to adjust Coumadin. This is being monitored and adjusted by her rug cutter. Anticipate improvement over the next 48-72 hr. Atrial fibrillation on chronic anti coagulation therapy-Coumadin: Patient takes Coumadin. Will need to verify doses. Will check INR. Will adjust accordingly. Maintain INR between 2 and 3. Will hold Coumadin if INR greater than 3.0. Multiple sacral decubitus ulcers, chronic: Multiple ulcers appear chronic. Will have wound care evaluate and treat. Will also have them document. Seizure disorder: Continue her Keppra. History of CVA: Obtain and verify home medication. Hypertension: Obtain and verify and restart home medication. GERD: Restart Protonix. Dementia: Obtain and verify and restart home medication. Discharge Plan: Home Plan to discharge in: Greater than 2 days - Advance Directives Does patient have a Living Will: Yes Does patient have a Durable POA for Healthcare: Yes - Code Status/Comfort Care Code Status Assessed: Yes (Patient is DNR) Time Spent Managing Pts Care (In Minutes): 55
[2019-05-24 12:21] LABS: Protime INR 2.87
[2019-05-24] MEDS ORDERED: WARFARIN SODIUM 4 MG TAB PO SCH (13:22)
[2019-05-24] MEDS ORDERED: ACETAMINOPHEN 500 MG TAB PO PRN (13:22)
[2019-05-24] MEDS ORDERED: ONDANSETRON 4 MG/2 ML VIAL IV PRN (13:22)
[2019-05-24 13:45] VITALS: BMI 32.2
[2019-05-24] MEDS ORDERED: WARFARIN SODIUM 2 MG TAB PO SCH ×2 (14:00)
--- NOTE | 2019-05-24 16:20 | CON ---
Date of Consultation: 05/24/2019 Brief History Of Present Illness: Patient is an 88-year-old black female with a history of coronary artery disease, CVA, seizure disorder, atrial fibrillation on chronic anticoagulation with Coumadin/w arfarin. She additionally has hypertension, GERD, Parkinson's dementia. She reports left calf pain. Her daughter was present at the bedside. I spoke to her regarding this. She has apparently had se veral episodes of hematomas in the same said leg, but the last time was on the medial upper thigh are a, which took some period of time to resolve, but ultimately did resolve well, as of late she had not ed a new fluid collection on the posterior medial calf area which emerged over an unspecified period of time, but got somewhat larger and more tender as of late. She was seen by home health agency [facility], was recommended to go to the ER for further evaluation as there had been several days of increasin g pain to this area. Past Medical History: As above includes CVA, coronary artery disease, seizure disorder, atrial fibri llation, on chronic anticoagulation, hypertension, GERD, Parkinson's, chronic kidney disease, chronic allergies, history of a DVT. Past Surgical History: She has coronary artery stents placed. She is a and has 14 children. Lives at home. Her family takes care of her. Allergies: PENICILLIN. Home Medications: Include Keppra, losartan, Detrol, allopurinol, atenolol, lamotrigine, risperidone, BuSpar, galantamine, carbidopa and levodopa combination, Micro-K, Coumadin 4 mg per day. Social History: She has no smoking, alcohol, or recreational drug use history. Review of Systems: On 10-point review of systems other than HPI, denies although patient is minimally conversive. Physical Examination: Vital Signs: At the time of my examination, her BMI is 32. Her blood pressure is 116/76, pulse 72, respiratory rate 17, temperature 98.0. General: She is awake and alert, but has low-grade confusion. She is accompanied by family, one of her daughters who takes care of her. HEENT: Otherwise sclerae were anicteric. Mucous membranes are moist. Chest: Normal expansion and excursion. Cardiovascular: Regular rate and rhythm. Pulmonary: Clear to auscultation bilaterally. Extremities: Focused examination of the left lower e xtremity posterior calf area, there is approximately 4 cm round tender cyst consistent with a hematom a of the calf area. There is no expansion of this area. No ecchymosis. Laboratory Data: Reveals a white blood count of 9.8, hemoglobin is 9.0, hematocrit of 27.7, platelet count is 275. Her PT is 32.5, INR 2.87. Her sodium is 140, potassium 3.4, chloride 107, carbon saira xide 27, BUN 20, creatinine 1.3, glucose is 97. Lactic acid 1.2. Procalcitonin less than 0.05. She had an ultrasound performed which was officially read as a superficial 7 x 3 x 5 cm heterogeneous hy poechoic mass present within the soft tissue of the posterior lateral left calf. Overlying soft tiss ues are edematous. No focal abnormality seen. The mass has the appearance of an old hematoma, but a secondarily infected hematoma or abscess had a similar characteristics. Superficial margin of the m ass is 4 mm below the skin surface. Assessment And Plan: This is an 88-year-old female who has a superficial hematoma likely due to anti coagulation of the left calf area. 1.Continue medical management. 2.I recommend wrapping with gentle Ld bandages, elevation and cooling packs to the area as well as antibiotic coverage. We will try nonoperative management as the patient is currently on anticoagulat ion and has a significant intraoperative complication risk by her previous medical comorbidities. Fahad sheppard, I have discussed that should our nonoperative management be unsuccessful, we will consider ashok hernan at that time, understanding that the risk would be significantly increased and we would likely l vanessa to bridge her off her Coumadin onto a shorter acting anticoagulation medication, perform the surg torsten, and then resume her as soon as safely can be done postoperatively. The patient and family agree s to proceed as indicated. Thank you for this interesting consult. MERY/ALEXX Voice ID: [id number] Report ID: [id number]
[2019-05-24] MEDS: GALANTAMINE 4 MG TAB PO SCH (16:40)
[2019-05-24] MEDS: FUROSEMIDE 40 MG TABLET PO SCH (16:40)
[2019-05-24] MEDS ORDERED: POTASSIUM CL SA 10 MEQ TAB PO ONE (21:00)
[2019-05-24] MEDS: RISPERIDONE 0.25 MG TABLET PO SCH (22:54)
[2019-05-24] MEDS: BUSPIRONE HCL 5 MG TABLET PO SCH (22:55)
[2019-05-24] MEDS: levETIRAcetam 500 MG TAB PO SCH (22:55)
[2019-05-25] MEDS: atenoloL 50 MG TAB PO SCH (06:00)
[2019-05-25] MEDS: PANTOPRAZOLE 40MG TABLET PO SCH (06:10)
[2019-05-25 06:15] LABS: Magnesium 2.3 mg/dL (1.8-2.4); Potassium 3.9 mmol/L (3.5-5.1)
[2019-05-25 06:17] LABS: Absolute Lymphocytes (CBC) 1.7 K/uL (0.7-4.9); Basophils % 1.1 % (0-1.3); Hematocrit 28.7 % (36.0-45.0); Lymphocytes % 18.8 % (15.3-44.8); MPV 7.5 fL (7.6-11.3)
[2019-05-25 06:19] LABS: Protime INR 2.73
[2019-05-25] MEDS ORDERED: POTASSIUM 25 MEQ EFFERV TAB PO ONE (08:00)
[2019-05-25] MEDS: BUSPIRONE HCL 5 MG TABLET PO SCH ×2 (08:47→21:36)
[2019-05-25] MEDS: LOSARTAN POTASSIUM 50 MG TABLET PO SCH (08:47)
[2019-05-25] MEDS: FUROSEMIDE 40 MG TABLET PO SCH ×2 (08:48→17:19)
[2019-05-25] MEDS: GALANTAMINE 4 MG TAB PO SCH ×2 (08:48→17:18)
[2019-05-25] MEDS: levETIRAcetam 500 MG TAB PO SCH ×2 (08:48→21:36)
[2019-05-25] MEDS: ESCITALOPRAM 20 MG TAB PO SCH (08:48)
[2019-05-25] MEDS: AMLODIPINE 10 MG TAB PO SCH (08:49)
[2019-05-25] MEDS: CARBIDOPA/LEVODOPA 25/100 TAB PO SCH (08:49)
[2019-05-25] MEDS: allopurinoL 100 MG TAB PO SCH (08:49)
[2019-05-25] MEDS ORDERED: VANCOMYCIN 1 GM in NA CHLORIDE 0.9% 500 ML IVPB SCH (09:00)
--- NOTE | 2019-05-25 09:34 | P.PN ---
Subjective Date of Service: 05/25/19 Primary Care Provider: NATASHA Hightower; Cardiology-Dr. Benavides; Neurology-Dr. Baxter Chief Complaint: Lower extremity calf pain Subjective: Improving Physical Examination - Vital Signs Temperature: 98.6 F Blood Pressure: 103/52 Pulse: 73 Respirations: 18 Pulse Ox (%): 94 - Physical Exam General: Alert, In no apparent distress, Oriented x3, Cooperative HEENT: Atraumatic Neck: Supple Respiratory: Clear to auscultation bilaterally, Normal air movement Cardiovascular: Normal pulses, Regular rate/rhythm Integumentary: Other (Erythema and swelling improved to the left lower extremity.) Neurological: Normal speech, Normal strength at 5/5 x4 extr, Normal tone, Normal affect - Studies Laboratory Data (last 24 hrs) 05/24/19 09:30: Sodium 140, Potassium 3.4 L, BUN 20 H, Creatinine 1.32 H, Glucose 97 05/24/19 09:30: WBC 9.8, Hgb 9.0 L, Hct 27.7 L, Plt Count 275 Medications List Reviewed: Yes Assessment & Plan Discharge Plan: Home Plan to discharge in: 24 Hours Physician Review Additional Text: Impression: Posterior lateral left infected hematoma likely from ruptured Dunbar's cyst Atrial fibrillation on chronic anti coagulation therapy-Coumadin Multiple sacral decubitus ulcers, chronic Seizure disorder History of CVA Hypertension GERD Dementia Plan: Posterior lateral left infected hematoma likely from ruptured Dunbar's cyst: Erythema and swelling has significantly improved. Continue IV vancomycin. Will discuss with surgery. No surgical intervention needed at this time. Anticipate improvement over the next 24 hr. Will plan for discharge likely tomorrow. Atrial fibrillation on chronic anti coagulation therapy-Coumadin: Patient currently takes Coumadin. Will check with cardiology to see if this can be changed over to Eliquis or Xarelto. Patient previously on Xarelto likely changed over to Coumadin related to cost. INR stable this time. Multiple sacral decubitus ulcers, chronic: Multiple ulcers appear chronic. Will have wound care evaluate and treat. Will also have them document. Seizure disorder: Continue her Keppra. History of CVA: Obtain and restart home medication. Hypertension: Obtain and restart home medication. GERD: Continue Protonix. Dementia: Obtain and verify and restart home medication. Time Spent Managing Pts Care (In Minutes): 55
--- NOTE | 2019-05-25 17:34 | P.PN ---
Subjective Date of Service: 05/25/19 Primary Care Provider: NATASHA Hightower; Cardiology-Dr. Benavides; Neurology-Dr. Baxter Chief Complaint: Lower extremity calf pain Subjective: Improving (patient has less pain.) Physical Examination - Vital Signs Temperature: 97.6 F Blood Pressure: 107/49 Pulse: 75 Respirations: 18 Pulse Ox (%): 97 - Physical Exam General: Alert, In no apparent distress Integumentary: Other (LLE swelling is slightly improved, no significant change) - Studies Medications List Reviewed: Yes Assessment And Plan - Plan 88 year old woman with hematoma of calf - continue daily wraps - cool packing PRN - elevate lower extremity - no surgical indication at this time - continue medical managment Physician Review Additional Text: Impression: Posterior lateral left infected hematoma likely from ruptured Dunbar's cyst Atrial fibrillation on chronic anti coagulation therapy-Coumadin Multiple sacral decubitus ulcers, chronic Seizure disorder History of CVA Hypertension GERD Dementia Plan: Posterior lateral left infected hematoma likely from ruptured Dunbar's cyst: Erythema and swelling has significantly improved. Continue IV vancomycin. Will discuss with surgery. No surgical intervention needed at this time. Anticipate improvement over the next 24 hr. Will plan for discharge likely tomorrow. Atrial fibrillation on chronic anti coagulation therapy-Coumadin: Patient currently takes Coumadin. Will check with cardiology to see if this can be changed over to Eliquis or Xarelto. Patient previously on Xarelto likely changed over to Coumadin related to cost. INR stable this time. Multiple sacral decubitus ulcers, chronic: Multiple ulcers appear chronic. Will have wound care evaluate and treat. Will also have them document. Seizure disorder: Continue her Keppra. History of CVA: Obtain and restart home medication. Hypertension: Obtain and restart home medication. GERD: Continue Protonix. Dementia: Obtain and verify and restart home medication.
[2019-05-25] MEDS ORDERED: VANCOMYCIN 1.25 GM in NA CHLORIDE 0.9% 250 ML IVPB SCH (18:00)
[2019-05-25] MEDS: JUVEN PACKET PO SCH (21:00)
[2019-05-25] MEDS: RISPERIDONE 0.25 MG TABLET PO SCH (21:36)
[2019-05-26] MEDS: atenoloL 50 MG TAB PO SCH (05:46)
[2019-05-26] MEDS: PANTOPRAZOLE 40MG TABLET PO SCH (05:46)
[2019-05-26 06:39] LABS: Absolute Lymphocytes (CBC) 1.8 K/uL (0.7-4.9); Basophils % 1.1 % (0-1.3); Hematocrit 29.1 % (36.0-45.0); Lymphocytes % 18.3 % (15.3-44.8); MPV 7.6 fL (7.6-11.3); RBC Red Blood Cell Count 2.99 M/uL (3.86-4.86)
[2019-05-26 06:54] LABS: Protime INR 2.25
[2019-05-26 07:42] LABS: Magnesium 2.3 mg/dL (1.8-2.4); Potassium 3.6 mmol/L (3.5-5.1)
[2019-05-26] MEDS: CARBIDOPA/LEVODOPA 25/100 TAB PO SCH (09:05)
[2019-05-26] MEDS: BUSPIRONE HCL 5 MG TABLET PO SCH (09:05)
[2019-05-26] MEDS: AMLODIPINE 10 MG TAB PO SCH (09:05)
[2019-05-26] MEDS: allopurinoL 100 MG TAB PO SCH (09:05)
[2019-05-26] MEDS: FUROSEMIDE 40 MG TABLET PO SCH (09:05)
[2019-05-26] MEDS: GALANTAMINE 4 MG TAB PO SCH (09:06)
[2019-05-26] MEDS: levETIRAcetam 500 MG TAB PO SCH (09:06)
[2019-05-26] MEDS: ESCITALOPRAM 20 MG TAB PO SCH (09:06)
[2019-05-26] MEDS: LOSARTAN POTASSIUM 50 MG TABLET PO SCH (09:06)
[2019-05-26] MEDS: JUVEN PACKET PO SCH (09:07)
[2019-05-26 10:59] VITALS: O2SAT 96
--- NOTE | 2019-05-26 11:05 | P.DS ---
Admission Date: 05/24/19 Discharge Date: 05/26/19 Primary Care Provider: NATASHA Hightower; Cardiology-Dr. Benavides; Neurology-Dr. Baxter Disposition: ROUTINE DISCHARGE Discharge Condition: GOOD Reason for Admission: Lower extremity calf pain Consultations: Surgery-Dr. Jensen Procedures: Venous Doppler: Medical Problem List: Posterior lateral left infected hematoma likely from ruptured Dunbar's cyst Atrial fibrillation on chronic anti coagulation therapy-Coumadin Multiple sacral decubitus ulcers, chronic Seizure disorder History of CVA Hypertension GERD Dementia Brief History of Present Illness: 88-year-old female with history of CAD, CVA, seizure disorder, atrial fibrillation on chronic anti coagulation therapy-Coumadin, hypertension, GERD, Parkinson's and dementia. Patient presented with left calf pain. Most information came from the daughter who was present. She reports that she had a possibly Dunbar cyst to the left Knee region. Then over the last 2-3 weeks this appear to have ruptured as the daughter in noted edema from the knee to the calf. Over the last several days she has been having increasing pain, erythema to the left lateral calf region. Patient reports fever. Pain rated above 8. She was seen by her home health agent today. It was recommended she go to the ER for further evaluation and treatment. Patient was evaluated in the emergency room. Vital signs stable. White count 9.8, hemoglobin 9.0. Platelet count 275. INR pending at this time. Lactic acid and pro calcitonin within normal range. Sodium 140, potassium 3.4, BUN of 20, creatinine 1.32 with a GFR 46. Venous Doppler of the lower extremity showed superficial 7 x 3 x 5 cm heterogeneous hypoechoic mass present in the soft tissues posterior lateral left calf region. This likely is an old hematoma suspect infected. Superficial margin of the mass this 4 mm pillow the skin surface. Patient was started on IV vancomycin in the ER. ER spoke to the ER physician. Patient admitted for further evaluation and treatment. When I saw the patient the ER, she did not appear in any distress. She did appear septic. Family at bedside. Hospital Course: Patient presented with posterior lateral left infected hematoma. This is likely from a ruptured Dunbar cyst. Patient was placed on IV antibiotic therapy. Patient improved. Surgery was consulted. No surgical intervention was required. At discharge patient will continue with doxycycline 100 mg twice daily for 7 more days. Recommend follow up with surgery in 1-2 weeks. Recommend to elevate leg when sitting or lying. Patient with atrial fibrillation on chronic anti coagulation therapy. Patient has been taking Coumadin. It was recommended to discontinue Coumadin and replace it with Eliquis. She had been on Xarelto in the past but this was too costly. At discharge she will continue off Coumadin and switched over to Eliquis 2.5 mg twice daily. This has been adjusted for her kidney function and age. Education on Eliquis will be provided. This was discussed with nephrology. 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 Patient also history with hypertension. Patient will continue with Norvasc 10 mg daily, atenolol 50 mg daily, and losartan 50 mg daily. Recommend to monitor her blood pressure daily. Recommend to maintain blood pressures less 150/80. For adjustment can be done by her PCP or cardiology. Patient with history of seizure disorder. Patient will continue with Keppra as previous. Patient with GERD. Patient will continue with her medication. Patient with dementia. She will continue with her medication. Patient with Parkinson's. At discharge she will continue with carbidopa levodopa 25/100 mg 1 pill twice daily. Patient with urinary incontinence. Patient may continue with Detrol. Patient with chronic renal disease stage III. This has remained stable. I was able to get in contact with nephrology who follows her. Plan of care discussed with him. Recommend to recheck BMP in 1-2 weeks to follow up this hospitalization. Recommend no further use of nonsteroidal anti-inflammatories. Future medications will need to be renally dose. Vital Signs/Physical Exam: Temp Pulse Resp BP Pulse Ox 97.5 F 73 16 113/53 L 95 05/26/19 08:00 05/26/19 09:05 05/26/19 08:00 05/26/19 09:05 05/26/19 08:00 General: Alert, In no apparent distress, Oriented x3, Oriented x1 HEENT: Atraumatic Neck: Supple Respiratory: Clear to auscultation bilaterally, Normal air movement Cardiovascular: Normal pulses, Regular rate/rhythm Gastrointestinal: Normal bowel sounds, Soft and benign, Non-distended, No masses , No rebound, No guarding Musculoskeletal: No warmth Integumentary: Other (Left calf hematoma if approved. Less swelling noted. No erythema. Minimal pain.) Neurological: Normal speech, Normal strength at 5/5 x4 extr, Normal tone, Normal affect Laboratory Data at Discharge: WBC 9.8 K/uL (4.3-10.9) 05/26/19 06:06 Hgb 9.4 g/dL (12.0-15.0) L 05/26/19 06:06 Hct 29.1 % (36.0-45.0) L 05/26/19 06:06 Plt Count 291 K/uL (152-406) D 05/26/19 06:06 PT 26.1 SECONDS (9.5-12.5) H 05/26/19 06:06 INR 2.25 05/26/19 06:06 Sodium 141 mmol/L (136-145) 05/26/19 06:06 Potassium 3.6 mmol/L (3.5-5.1) 05/26/19 06:06 BUN 22 mg/dL (7-18) H 05/26/19 06:06 Creatinine 1.04 mg/dL (0.55-1.3) 05/26/19 06:06 Glucose 97 mg/dL (74-106) 05/26/19 06:06 Magnesium 2.3 mg/dL (1.8-2.4) 05/26/19 06:06 Home Medications: Amlodipine Besylate 1 tab PO DAILY 04/08/18 Escitalopram Oxalate [Lexapro] 10 mg PO DAILY 04/08/18 Furosemide 1.5 tab PO DAILY 04/08/18 Levetiracetam [Keppra] 0.5 tab PO BEDTIME 04/08/18 Levetiracetam [Keppra] 750 mg PO DAILY 04/08/18 Losartan Potassium 50 mg PO BEDTIME 04/08/18 Tolterodine Tartrate [Detrol] 1 tab PO BID 04/08/18 allopurinoL [Allopurinol] 2 tab PO DAILY 04/08/18 atenoloL [Atenolol] 1 tab PO DAILY 04/08/18 lamoTRIgine [Lamotrigine] 1 tab PO BID 04/08/18 risperiDONE [Risperidone] 1 tab PO BEDTIME 04/08/18 Galantamine HBr [Razadyne] 4 mg PO BID 05/14/18 Carbidopa/Levodopa [Carbidopa-Levo 25-100 mg Odt] 1 each PO BID 11/06/19 Potassium Chloride [Micro-K] 10 meq PO DAILY 01/12/19 Buspirone HCl [Buspar] 10 mg PO DAILY 05/24/19 Escitalopram Oxalate [Lexapro] 10 mg PO DAILY 05/24/19 Ferrous Sulfate [Ferrous Sulfate*] 1 tab PO DAILY 05/24/19 Pantoprazole Sodium 40 mg PO DAILY 05/24/19 Apixaban [Eliquis] 2.5 mg PO BID #60 tablet 05/25/19 Doxycycline Hyclate 100 mg PO BID #14 tablet 05/26/19 New Medications: Apixaban [Eliquis] 2.5 mg PO BID #60 tablet Doxycycline Hyclate 100 mg PO BID #14 tablet Patient Discharge Instructions: 1. Follow up with her PCP in 1 week to follow up this hospitalization. 2. Patient presented with posterior lateral left infected hematoma. This is likely from a ruptured Dunbar cyst. Patient was placed on IV antibiotic therapy. Patient improved. Surgery was consulted. No surgical intervention was required. At discharge patient will continue with doxycycline 100 mg twice daily for 7 more days. Recommend follow up with surgery in 1-2 weeks. Recommend to elevate leg when sitting or lying. 3. Patient with atrial fibrillation on chronic anti coagulation therapy. Patient has been taking Coumadin. It was recommended to discontinue Coumadin and replace it with Eliquis. She had been on Xarelto in the past but this was too costly. At discharge she will continue off Coumadin and switched over to Eliquis 2.5 mg twice daily. This has been adjusted for her kidney function and age. Education on Eliquis will be provided. This was discussed with nephrology. 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 4. Patient also history with hypertension. Patient will continue with Norvasc 10 mg daily, atenolol 50 mg daily, and losartan 50 mg daily. Recommend to monitor her blood pressure daily. Recommend to maintain blood pressures less 150/80. For adjustment can be done by her PCP or cardiology. 5. Patient with history of seizure disorder. Patient will continue with Keppra as previous. 6. Patient with GERD. Patient will continue with her medication. 7. Patient with dementia. She will continue with her medication. 8. Patient with Parkinson's. At discharge she will continue with carbidopa levodopa 25/100 mg 1 pill twice daily. 9. Patient with urinary incontinence. Patient may continue with Detrol. 10. Patient with chronic renal disease stage III. This has remained stable. I was able to get in contact with nephrology who follows her. Plan of care discussed with him. Recommend to recheck BMP in 1-2 weeks to follow up this hospitalization. Recommend no further use of nonsteroidal anti-inflammatories. Future medications will need to be renally dose. Diet: AHA Activity: Fall precautions Time spent managing pt's care (in minutes): 55
[2019-05-26 12:55] VITALS: BP 102/52; TEMP 97.3
== END 2019-05-26 13:10 | disposition home health service (06) | DRG 555 ==
LOC: ER 08:51 → ERHOLD 11:31 → 2ND 12:26
PROVIDERS: ADMIT Family Medicine; ATTEND Family Medicine
DX: M79.81 Nontraumatic hematoma of soft tissue (principal); L89.153 Pressure ulcer of sacral region, stage 3; I48.20 Chronic atrial fibrillation, unspecified; I48.91 Unspecified atrial fibrillation; I25.10 Atherosclerotic heart disease of native coronary artery without angina pectoris; K21.9 Gastro-esophageal reflux disease without esophagitis; G20 Parkinson's disease; F02.80 Dementia in other diseases classified elsewhere, unspecified severity, without behavioral disturbance, psychotic disturbance, mood disturbance, and anxiety; I12.9 Hypertensive chronic kidney disease with stage 1 through stage 4 chronic kidney disease, or unspecified chronic kidney disease; N18.3 Chronic kidney disease, stage 3 (moderate); G40.909 Epilepsy, unspecified, not intractable, without status epilepticus; M66.0 Rupture of popliteal cyst; Z79.01 Long term (current) use of anticoagulants; Z86.73 Personal history of transient ischemic attack (TIA), and cerebral infarction without residual deficits; Z95.5 Presence of coronary angioplasty implant and graft
CPT/HCPCS: 36415; 76882; 80048; 80202; 83605; 83735; 84145; 85025; 85610; 87040; 96361; 96374; 99285; J3370; J7030; J7040

== ENCOUNTER 2019-06-24 09:49 | Emergency (ER) | payer OTHER ==
--- OUTSIDE RECORDS SUMMARY | 2019-06-24 10:01 | XMS REPORT ---
:1930 Author Organization [facility] t Address [address] [place] [address] Care Team Providers Name Role Phone HARINIARIDIS Unavailable Unavailable Problems This patient has no known problems. Allergies, Adverse Reactions, Alerts This patient has no known allergies or adverse reactions. Medications This patient has no known medications. Results Test Description Test Time Test Comments Text Results Atomic Results Result Comments BLOOD CULTURE 2016-10-29 18:00:00 Test Item Value Reference Range Comments CULTURE (BEAKER) (test code = 1095) No growth in 5 days BLOOD [id number] 18:00:00 Test Item Value Reference Range Comments CULTURE (BEAKER) (test code = 1095) No growth in 5 days POCT-GLUCOSE [id number] 07:52:00 Test Item Value Reference Range Comments POC-GLUCOSE METER (BEAKER) 95 mg/dL 70-110 TESTE D AT [facility] [address] [facility] (test code = 1538) [facility] 77 030 TSH/FREE T4 IF [id number] 06:35:00 Test Item Value Reference Range Comments THYROID STIMULATING HORMONE (BEAKER) (test code 1.58 uIU/mL 0.35-4.94 = 772) VITAMIN D, [id number] 05:55:00 Test Item Value Reference Range Comments VITAMIN D 25-OH (BEAKER) (test code = 2764) < ng/mL 13.0 -47.8 TROPONIN [id number] 05:12:00 Test Item Value Reference Range Comments TROPONIN I (BEAKER) (test code = 397) 0.02 ng/mL 0.00-0.03 Effective 01/24/2014: Reference Range [...] renalfailure, acidosis, acute neurological disease, and persistent tachyarrhythmia.[id number] 05:04:00 Test Item Value Reference Range Comments PHOSPHORUS (BEAKER) (test code = 604) 2.9 mg/dL 2.3-4.7 [id number] 05:04:00 Test Item Value Reference Range Comments MAGNESIUM (BEAKER) (test code = 627) 1.9 mg/dL 1.6-2.6 BASIC METABOLIC [id number] 05:04:00 Test Item Value Reference Range Comments SODIUM (BEAKER) (test 142 meq/L 136-145 code = 381) POTASSIUM (BEAKER) (test 3.9 meq/L 3.5-5.1 code = 379) CHLORIDE (BEAKER) (test 112 meq/L 98-107 code = 382) CO2 (BEAKER) (test code = 23 meq/L 22-29 355) BLOOD UREA NITROGEN 19 mg/dL 7-21 (BEAKER) (test code = 354) CREATININE (BEAKER) (test 0.84 mg/dL 0.57-1.25 code = 358) GLUCOSE RANDOM (BEAKER) 107 mg/dL 70-105 (test code = 652) CALCIUM (BEAKER) (test 8.9 mg/dL 8.4-10.2 code = 697) EGFR (BEAKER) (test code 78 mL/min/1.73 sq m EST IMATED GFR IS NOT = 1092) ACCURATE CREA TININE CLEARANCE IN PRE DICTING GLOMERULAR FILTR ATION RATE. ESTIMATED GFR IS NOT APPLICABLE F OR DIALYSIS PATIENT S. CBC W/PLT COUNT & AUTO [id number] 04:51:00 Test Item Value Reference Range Comments WHITE BLOOD CELL COUNT (BEAKER) (test code = 8.3 K/ L 3.5 -10.5 775) RED BLOOD CELL COUNT (BEAKER) (test code = 761) 3.07 M/ L 3.93-5.22 HEMOGLOBIN (BEAKER) (test code = 410) 9.2 GM/DL 11.2-15.7 HEMATOCRIT (BEAKER) (test code = 411) 29.1 % 34.1-44.9 MEAN CORPUSCULAR VOLUME (BEAKER) (test code = 94.8 fL 79 .4-94.8 753) MEAN CORPUSCULAR HEMOGLOBIN (BEAKER) (test code 30.0 pg 25.6-32.2 = 751) MEAN CORPUSCULAR HEMOGLOBIN CONC (BEAKER) (test 31.6 GM/DL 32.2-35.5 code = 752) RED CELL DISTRIBUTION WIDTH (BEAKER) (test code 14.3 % 11.7-14.4 = 412) PLATELET COUNT (BEAKER) (test code = 756) 182 K/CU MM 150-45 0 MEAN PLATELET VOLUME (BEAKER) (test code = 754) 9.8 fL 9.4-12.3 NUCLEATED RED BLOOD CELLS (BEAKER) (test code = 0 /100 WBC 0-0 413) NEUTROPHILS RELATIVE PERCENT (BEAKER) (test code 61 % = 429) LYMPHOCYTES RELATIVE PERCENT (BEAKER) (test code 31 % = 430) MONOCYTES RELATIVE PERCENT (BEAKER) (test code = 8 % 431) EOSINOPHILS RELATIVE PERCENT (BEAKER) (test code 0 % = 432) BASOPHILS RELATIVE PERCENT (BEAKER) (test code = 1 % 437) NEUTROPHILS ABSOLUTE COUNT (BEAKER) (test code = 5.03 K/ L 1.56-6.13 670) LYMPHOCYTES ABSOLUTE COUNT (BEAKER) (test code = 2.54 K/ L 1.18-3.74 414) MONOCYTES ABSOLUTE COUNT (BEAKER) (test code = 0.64 K/ L 0 .24-0.36 415) EOSINOPHILS ABSOLUTE COUNT (BEAKER) (test code = 0.01 K/ L 0.04-0.36 416) BASOPHILS ABSOLUTE COUNT (BEAKER) (test code = 0.05 K/ L 0 .01-0.08 417) IMMATURE GRANULOCYTES-RELATIVE PERCENT (BEAKER) 1 % 0-1 (test code = 2801) POCT-GLUCOSE [id number] 23:47:00 Test Item Value Reference Range Comments POC-GLUCOSE METER (BEAKER) 121 mg/dL 70-110 TESTE D AT [facility] [address] (test code = 1538) [facility] 77 030 CBC W/PLT COUNT & AUTO [id number] 07:13:00 Test Item Value Reference Range Comments WHITE BLOOD CELL COUNT (BEAKER) (test code = 8.9 K/ L 3.5 -10.5 775) RED BLOOD CELL COUNT (BEAKER) (test code = 761) 3.47 M/ L 3.93-5.22 HEMOGLOBIN (BEAKER) (test code = 410) 10.6 GM/DL 11.2-15.7 HEMATOCRIT (BEAKER) (test code = 411) 33.4 % 34.1-44.9 MEAN CORPUSCULAR VOLUME (BEAKER) (test code = 96.3 fL 79 .4-94.8 753) MEAN CORPUSCULAR HEMOGLOBIN (BEAKER) (test code 30.5 pg 25.6-32.2 = 751) MEAN CORPUSCULAR HEMOGLOBIN CONC (BEAKER) (test 31.7 GM/DL 32.2-35.5 code = 752) RED CELL DISTRIBUTION WIDTH (BEAKER) (test code 14.6 % 11.7-14.4 = 412) PLATELET COUNT (BEAKER) (test code = 756) 206 K/CU MM 150-45 0 MEAN PLATELET VOLUME (BEAKER) (test code = 754) 10.2 fL 9.4-12.3 NUCLEATED RED BLOOD CELLS (BEAKER) (test code = 0 /100 WBC 0-0 413) NEUTROPHILS RELATIVE PERCENT (BEAKER) (test code 66 % = 429) LYMPHOCYTES RELATIVE PERCENT (BEAKER) (test code 28 % = 430) MONOCYTES RELATIVE PERCENT (BEAKER) (test code = 6 % 431) EOSINOPHILS RELATIVE PERCENT (BEAKER) (test code 0 % = 432) BASOPHILS RELATIVE PERCENT (BEAKER) (test code = 1 % 437) NEUTROPHILS ABSOLUTE COUNT (BEAKER) (test code = 5.84 K/ L 1.56-6.13 670) LYMPHOCYTES ABSOLUTE COUNT (BEAKER) (test code = 2.47 K/ L 1.18-3.74 414) MONOCYTES ABSOLUTE COUNT (BEAKER) (test code = 0.51 K/ L 0 .24-0.36 415) EOSINOPHILS ABSOLUTE COUNT (BEAKER) (test code = 0.01 K/ L 0.04-0.36 416) BASOPHILS ABSOLUTE COUNT (BEAKER) (test code = 0.06 K/ L 0 .01-0.08 417) IMMATURE GRANULOCYTES-RELATIVE PERCENT (BEAKER) 0 % 0-1 (test code = 2801) PHENYTOIN LEVEL, [id number] 06:29:00 Test Item Value Reference Range Comments PHENYTOIN (DILANTIN) (BEAKER) (test code = 605) 21.3 ug/mL 10.0-20.0 Prior to morning dose [id number] 06:18:00 Test Item Value Reference Range Comments PHOSPHORUS (BEAKER) (test code = 604) 2.8 mg/dL 2.3-4.7 [id number] 06:18:00 Test Item Value Reference Range Comments MAGNESIUM (BEAKER) (test code = 627) 2.1 mg/dL 1.6-2.6 BASIC METABOLIC [id number] 06:18:00 Test Item Value Reference Range Comments SODIUM (BEAKER) (test 142 meq/L 136-145 code = 381) POTASSIUM (BEAKER) (test 3.7 meq/L 3.5-5.1 code = 379) CHLORIDE (BEAKER) (test 109 meq/L 98-107 code = 382) CO2 (BEAKER) (test code = 24 meq/L 22-29 355) BLOOD UREA NITROGEN 12 mg/dL 7-21 (BEAKER) (test code = 354) CREATININE (BEAKER) (test 0.78 mg/dL 0.57-1.25 code = 358) GLUCOSE RANDOM (BEAKER) 87 mg/dL 70-105 (test code = 652) CALCIUM (BEAKER) (test 9.4 mg/dL 8.4-10.2 code = 697) EGFR (BEAKER) (test code 85 mL/min/1.73 sq m EST IMATED GFR IS NOT = 1092) ACCURATE CREA TININE CLEARANCE IN PRE DICTING GLOMERULAR FILTR ATION RATE. ESTIMATED GFR IS NOT APPLICABLE F OR DIALYSIS PATIENT S. [id number] 06:12:00 Test Item Value Reference Range Comments POTASSIUM (BEAKER) (test code = 4.0 meq/L 3.5-5.1 Specimen slightly hemolyzed 379) [id number] 09:55:00 Test Item Value Reference Range Comments PHOSPHORUS (BEAKER) (test code = 604) 2.5 mg/dL 2.3-4.7 PHENYTOIN LEVEL, [id number] 07:57:00 Test Item Value Reference Range Comments PHENYTOIN (DILANTIN) (BEAKER) (test code = 605) 20.0 ug/mL 10.0-20.0 BLOOD GAS, [id number] 05:02:00 Test Item Value Reference Range Comments PH ARTERIAL (BEAKER) (test code = 383) 7.46 7.35-7.45 PCO2 ARTERIAL (BEAKER) (test code = 384) 39 mmHg 35-45 PO2 ARTERIAL (BEAKER) (test code = 385) 144 mmHg 80-90 O2 SATURATION ARTERIAL (BEAKER) (test code = 386) 99.0 % 96.0-97.0 HCO3 ARTERIAL (BEAKER) (test code = 388) 27 mmol/L 21-29 BASE EXCESS ARTERIAL (BEAKER) (test code = 387) 3.0 mmol/L -2.0-3.0 PATIENT TEMPERATURE (BEAKER) (test code = 1818) 37.0 C FIO2 (BEAKER) (test code = 1819) 21.0 % BASIC METABOLIC [id number] 04:34:00 Test Item Value Reference Range Comments SODIUM (BEAKER) (test 144 meq/L 136-145 code = 381) POTASSIUM (BEAKER) (test 3.5 meq/L 3.5-5.1 code = 379) CHLORIDE (BEAKER) (test 112 meq/L 98-107 code = 382) CO2 (BEAKER) (test code = 24 meq/L 22-29 355) BLOOD UREA NITROGEN 9 mg/dL 7-21 (BEAKER) (test code = 354) CREATININE (BEAKER) (test 0.80 mg/dL 0.57-1.25 code = 358) GLUCOSE RANDOM (BEAKER) 108 mg/dL 70-105 (test code = 652) CALCIUM (BEAKER) (test 9.2 mg/dL 8.4-10.2 code = 697) EGFR (BEAKER) (test code 82 mL/min/1.73 sq m EST IMATED GFR IS NOT = 1092) ACCURATE CREA TININE CLEARANCE IN PRE DICTING GLOMERULAR FILTR ATION RATE. ESTIMATED GFR IS NOT APPLICABLE F OR DIALYSIS PATIENT S. [id number] 04:30:00 Test Item Value Reference Range Comments MAGNESIUM (BEAKER) (test code = 627) 2.3 mg/dL 1.6-2.6 CBC W/PLT COUNT & AUTO [id number] 04:12:00 Test Item Value Reference Range Comments WHITE BLOOD CELL COUNT (BEAKER) (test code = 9.7 K/ L 3.5 -10.5 775) RED BLOOD CELL COUNT (BEAKER) (test code = 761) 3.07 M/ L 3.93-5.22 HEMOGLOBIN (BEAKER) (test code = 410) 9.4 GM/DL 11.2-15.7 HEMATOCRIT (BEAKER) (test code = 411) 29.4 % 34.1-44.9 MEAN CORPUSCULAR VOLUME (BEAKER) (test code = 95.8 fL 79 .4-94.8 753) MEAN CORPUSCULAR HEMOGLOBIN (BEAKER) (test code 30.6 pg 25.6-32.2 = 751) MEAN CORPUSCULAR HEMOGLOBIN CONC (BEAKER) (test 32.0 GM/DL 32.2-35.5 code = 752) RED CELL DISTRIBUTION WIDTH (BEAKER) (test code 14.4 % 11.7-14.4 = 412) PLATELET COUNT (BEAKER) (test code = 756) 182 K/CU MM 150-45 0 MEAN PLATELET VOLUME (BEAKER) (test code = 754) 9.4 fL 9.4-12.3 NUCLEATED RED BLOOD CELLS (BEAKER) (test code = 0 /100 WBC 0-0 413) NEUTROPHILS RELATIVE PERCENT (BEAKER) (test code 71 % = 429) LYMPHOCYTES RELATIVE PERCENT (BEAKER) (test code 21 % = 430) MONOCYTES RELATIVE PERCENT (BEAKER) (test code = 7 % 431) EOSINOPHILS RELATIVE PERCENT (BEAKER) (test code 0 % = 432) BASOPHILS RELATIVE PERCENT (BEAKER) (test code = 1 % 437) NEUTROPHILS ABSOLUTE COUNT (BEAKER) (test code = 6.89 K/ L 1.56-6.13 670) LYMPHOCYTES ABSOLUTE COUNT (BEAKER) (test code = 2.05 K/ L 1.18-3.74 414) MONOCYTES ABSOLUTE COUNT (BEAKER) (test code = 0.65 K/ L 0 .24-0.36 415) EOSINOPHILS ABSOLUTE COUNT (BEAKER) (test code = 0.01 K/ L 0.04-0.36 416) BASOPHILS ABSOLUTE COUNT (BEAKER) (test code = 0.06 K/ L 0 .01-0.08 417) IMMATURE GRANULOCYTES-RELATIVE PERCENT (BEAKER) 0 % 0-1 (test code = 2801) PHENYTOIN LEVEL, [id number] 22:07:00 Test Item Value Reference Range Comments PHENYTOIN (DILANTIN) (BEAKER) (test code = 605) 14.2 ug/mL 10.0-20.0 POCT-GLUCOSE [id number] 13:56:00 Test Item Value Reference Range Comments POC-GLUCOSE METER (BEAKER) 119 mg/dL 70-110 TESTE D AT [facility] [address] [facility] (test code = 1538) [facility] 77 030 URINE [id number] 11:44:00 Test Item Value Reference Range Comments CULTURE (BEAKER) (test code = 1095) See comment <10,000 col/mL Gram Negative rodsSPUTUM CULTURE + GRAM [id number] 09:04:00 Test Item Value Reference Range Comments CULTURE (BEAKER) (test code 4+ Normal respiratory rachel = 1095) present GRAM STAIN RESULT (BEAKER) 1+ WBCs (test code = 1123) GRAM STAIN RESULT (BEAKER) 0-5 epithelial cells (test code = 47403) GRAM STAIN RESULT (BEAKER) 2+ gram positive cocci in chains (test code = 55095) and pairs [id number] 05:12:00 Test Item Value Reference Range Comments MAGNESIUM (BEAKER) (test code = 2.5 mg/dL 1.6-2.6 Specimen slightly hemolyzed 627) [id number] 05:12:00 Test Item Value Reference Range Comments PHOSPHORUS (BEAKER) (test code 2.2 mg/dL 2.3-4.7 S pecimen slightly hemolyzed = 604) BASIC METABOLIC [id number] 05:12:00 Test Item Value Reference Range Comments SODIUM (BEAKER) (test 142 meq/L 136-145 code = 381) POTASSIUM (BEAKER) (test 4.0 meq/L 3.5-5.1 Specime n slightly code = 379) hemolyzed CHLORIDE (BEAKER) (test 108 meq/L 98-107 code = 382) CO2 (BEAKER) (test code = 22 meq/L 22-29 355) BLOOD UREA NITROGEN 11 mg/dL 7-21 (BEAKER) (test code = 354) CREATININE (BEAKER) (test 0.92 mg/dL 0.57-1.25 Specim en slightly code = 358) hemolyzed GLUCOSE RANDOM (BEAKER) 94 mg/dL 70-105 (test code = 652) CALCIUM (BEAKER) (test 9.7 mg/dL 8.4-10.2 code = 697) EGFR (BEAKER) (test code mL/min/1.73 sq m INSUF FICIENT CLINICAL DATA = 1092) TO CALCULATE EST IMATED GFR. CBC W/PLT COUNT & AUTO [id number] 05:01:00 Test Item Value Reference Range Comments WHITE BLOOD CELL COUNT (BEAKER) (test code = 12.6 K/ L 3.5 -10.5 775) RED BLOOD CELL COUNT (BEAKER) (test code = 761) 3.42 M/ L 3.93-5.22 HEMOGLOBIN (BEAKER) (test code = 410) 10.3 GM/DL 11.2-15.7 HEMATOCRIT (BEAKER) (test code = 411) 32.4 % 34.1-44.9 MEAN CORPUSCULAR VOLUME (BEAKER) (test code = 94.7 fL 79 .4-94.8 753) MEAN CORPUSCULAR HEMOGLOBIN (BEAKER) (test code 30.1 pg 25.6-32.2 = 751) MEAN CORPUSCULAR HEMOGLOBIN CONC (BEAKER) (test 31.8 GM/DL 32.2-35.5 code = 752) RED CELL DISTRIBUTION WIDTH (BEAKER) (test code 14.2 % 11.7-14.4 = 412) PLATELET COUNT (BEAKER) (test code = 756) 219 K/CU MM 150-45 0 MEAN PLATELET VOLUME (BEAKER) (test code = 754) 10.0 fL 9.4-12.3 NUCLEATED RED BLOOD CELLS (BEAKER) (test code = 0 /100 WBC 0-0 413) NEUTROPHILS RELATIVE PERCENT (BEAKER) (test code 57 % = 429) LYMPHOCYTES RELATIVE PERCENT (BEAKER) (test code 35 % = 430) MONOCYTES RELATIVE PERCENT (BEAKER) (test code = 7 % 431) EOSINOPHILS RELATIVE PERCENT (BEAKER) (test code 0 % = 432) BASOPHILS RELATIVE PERCENT (BEAKER) (test code = 1 % 437) NEUTROPHILS ABSOLUTE COUNT (BEAKER) (test code = 7.19 K/ L 1.56-6.13 670) LYMPHOCYTES ABSOLUTE COUNT (BEAKER) (test code = 4.39 K/ L 1.18-3.74 414) MONOCYTES ABSOLUTE COUNT (BEAKER) (test code = 0.91 K/ L 0 .24-0.36 415) EOSINOPHILS ABSOLUTE COUNT (BEAKER) (test code = 0.01 K/ L 0.04-0.36 416) BASOPHILS ABSOLUTE COUNT (BEAKER) (test code = 0.06 K/ L 0 .01-0.08 417) IMMATURE GRANULOCYTES-RELATIVE PERCENT (BEAKER) 0 % 0-1 (test code = 2801) [id number] 21:19:00 Test Item Value Reference Range Comments POTASSIUM (BEAKER) (test code = 379) 3.8 meq/L 3.5-5.1 POCT-GLUCOSE [id number] 18:19:00 Test Item Value Reference Range Comments POC-GLUCOSE METER (BEAKER) 113 mg/dL 70-110 TESTE D AT [address] (test code = 1538) [place] [address] POCT-GLUCOSE [id number] 13:32:00 Test Item Value Reference Range Comments POC-GLUCOSE METER (BEAKER) 107 mg/dL 70-110 TESTE D AT [address] (test code = 1538) [place] [address] POCT-GLUCOSE [id number] 07:32:00 Test Item Value Reference Range Comments POC-GLUCOSE METER (BEAKER) 105 mg/dL 70-110 TESTE D AT [address] (test code = 1538) [place] [address] BASIC METABOLIC [id number] 05:54:00 Test Item Value Reference Range Comments SODIUM (BEAKER) (test 143 meq/L 136-145 code = 381) POTASSIUM (BEAKER) (test 3.3 meq/L 3.5-5.1 Specime n slightly code = 379) hemolyzed CHLORIDE (BEAKER) (test 109 meq/L 98-107 code = 382) CO2 (BEAKER) (test code = 24 meq/L 22-29 355) BLOOD UREA NITROGEN 11 mg/dL 7-21 (BEAKER) (test code = 354) CREATININE (BEAKER) (test 0.79 mg/dL 0.57-1.25 Specim en slightly code = 358) hemolyzed GLUCOSE RANDOM (BEAKER) 98 mg/dL 70-105 (test code = 652) CALCIUM (BEAKER) (test 9.2 mg/dL 8.4-10.2 code = 697) EGFR (BEAKER) (test code mL/min/1.73 sq m INSUF FICIENT CLINICAL DATA = 1092) TO CALCULATE EST IMATED GFR. BLOOD GAS, [id number] 05:44:00 Test Item Value Reference Range Comments PH ARTERIAL (BEAKER) (test code = 383) 7.45 7.35-7.45 PCO2 ARTERIAL (BEAKER) (test code = 384) 40 mmHg 35-45 PO2 ARTERIAL (BEAKER) (test code = 385) 59 mmHg 80-90 O2 SATURATION ARTERIAL (BEAKER) (test code = 386) 91.1 % 96.0-97.0 HCO3 ARTERIAL (BEAKER) (test code = 388) 27 mmol/L 21-29 BASE EXCESS ARTERIAL (BEAKER) (test code = 387) 2.6 mmol/L -2.0-3.0 PATIENT TEMPERATURE (BEAKER) (test code = 1818) 37.5 C FIO2 (BEAKER) (test code = 1819) 40.0 % [id number] 05:38:00 Test Item Value Reference Range Comments MAGNESIUM (BEAKER) (test code = 2.4 mg/dL 1.6-2.6 Specimen slightly hemolyzed 627) [id number] 05:38:00 Test Item Value Reference Range Comments PHOSPHORUS (BEAKER) (test code 2.0 mg/dL 2.3-4.7 S pecimen slightly hemolyzed = 604) CBC W/PLT COUNT & AUTO [id number] 05:14:00 Test Item Value Reference Range Comments WHITE BLOOD CELL COUNT (BEAKER) (test code = 9.8 K/ L 3.5 -10.5 775) RED BLOOD CELL COUNT (BEAKER) (test code = 761) 3.07 M/ L 3.93-5.22 HEMOGLOBIN (BEAKER) (test code = 410) 9.5 GM/DL 11.2-15.7 HEMATOCRIT (BEAKER) (test code = 411) 29.6 % 34.1-44.9 MEAN CORPUSCULAR VOLUME (BEAKER) (test code = 96.4 fL 79 .4-94.8 753) MEAN CORPUSCULAR HEMOGLOBIN (BEAKER) (test code 30.9 pg 25.6-32.2 = 751) MEAN CORPUSCULAR HEMOGLOBIN CONC (BEAKER) (test 32.1 GM/DL 32.2-35.5 code = 752) RED CELL DISTRIBUTION WIDTH (BEAKER) (test code 14.2 % 11.7-14.4 = 412) PLATELET COUNT (BEAKER) (test code = 756) 192 K/CU MM 150-45 0 MEAN PLATELET VOLUME (BEAKER) (test code = 754) 10.0 fL 9.4-12.3 NUCLEATED RED BLOOD CELLS (BEAKER) (test code = 0 /100 WBC 0-0 413) NEUTROPHILS RELATIVE PERCENT (BEAKER) (test code 74 % = 429) LYMPHOCYTES RELATIVE PERCENT (BEAKER) (test code 18 % = 430) MONOCYTES RELATIVE PERCENT (BEAKER) (test code = 8 % 431) EOSINOPHILS RELATIVE PERCENT (BEAKER) (test code 0 % = 432) BASOPHILS RELATIVE PERCENT (BEAKER) (test code = 0 % 437) NEUTROPHILS ABSOLUTE COUNT (BEAKER) (test code = 7.28 K/ L 1.56-6.13 670) LYMPHOCYTES ABSOLUTE COUNT (BEAKER) (test code = 1.72 K/ L 1.18-3.74 414) MONOCYTES ABSOLUTE COUNT (BEAKER) (test code = 0.76 K/ L 0 .24-0.36 415) EOSINOPHILS ABSOLUTE COUNT (BEAKER) (test code = 0.00 K/ L 0.04-0.36 416) BASOPHILS ABSOLUTE COUNT (BEAKER) (test code = 0.03 K/ L 0 .01-0.08 417) IMMATURE GRANULOCYTES-RELATIVE PERCENT (BEAKER) 1 % 0-1 (test code = 2801) RAD, CHEST, 1 VIEW, NON [id number] 03:01:00Reason for exam:->ETT verficiationShould this be performed [...] exam. Signed: Presley Robert MDReport Verified Date/Time: 10/25/2016 03:01:35 Reading Location: [address] Reading Room TROPONIN [id number] 02:55:00 Test Item Value Reference Range Comments TROPONIN I (BEAKER) (test code = 397) 0.31 ng/mL 0.00-0.03 Effective 01/24/2014: Reference Range [...] and persistent tachyarrhythmia.CREATINE KINASE (CK), TOTAL AND MB 2016-10-25 02:36:00 Test Item Value Reference Range Comments CREATINE KINASE TOTAL (BEAKER) (test code = 380) 260 U/L 29-200 CREATINE KINASE-MB (BEAKER) (test code = 750) 4.5 ng/mL 0. 0-6.6 CREATINE KINASE-MB INDEX (BEAKER) (test code = 1.7 % 395) Effective 01/24/2014: CK-MB Reference Range ChangeNew: 0.0-6.6 Previous: 0.0-4.9CK-MB Reference Range:<6.7 Normal6.7-10.0 Borderline>10.0 AbnormalPOCT-GLUCOSE [id number] 00:18:00 Test Item Value Reference Range Comments POC-GLUCOSE METER (BEAKER) 103 mg/dL 70-110 TESTE D AT [address] (test code = 1538) [place] [address] BASIC METABOLIC [id number] 18:32:00 Test Item Value Reference Range Comments SODIUM (BEAKER) (test 142 meq/L 136-145 code = 381) POTASSIUM (BEAKER) (test 3.0 meq/L 3.5-5.1 code = 379) CHLORIDE (BEAKER) (test 107 meq/L 98-107 code = 382) CO2 (BEAKER) (test code = 22 meq/L 22-29 355) BLOOD UREA NITROGEN 14 mg/dL 7-21 (BEAKER) (test code = 354) CREATININE (BEAKER) (test 0.97 mg/dL 0.57-1.25 code = 358) GLUCOSE RANDOM (BEAKER) 119 mg/dL 70-105 (test code = 652) CALCIUM (BEAKER) (test 8.9 mg/dL 8.4-10.2 code = 697) EGFR (BEAKER) (test code mL/min/1.73 sq m INSUF FICIENT CLINICAL DATA = 1092) TO CALCULATE EST IMATED GFR. [id number] 18:23:00 Test Item Value Reference Range Comments PHOSPHORUS (BEAKER) (test code = 604) 1.6 mg/dL 2.3-4.7 [id number] 18:23:00 Test Item Value Reference Range Comments MAGNESIUM (BEAKER) (test code = 627) 1.6 mg/dL 1.6-2.6 POCT-GLUCOSE [id number] 18:16:00 Test Item Value Reference Range Comments POC-GLUCOSE METER (BEAKER) 118 mg/dL 70-110 TESTE D AT [place] [id number] [facility] (test code = 1538) [place] [address] 030 TROPONIN [id number] 16:10:00 Test Item Value Reference Range Comments TROPONIN I (BEAKER) (test code = 397) 0.27 ng/mL 0.00-0.03 Effective 01/24/2014: Reference Range [...] and persistent tachyarrhythmia.CREATINE KINASE (CK), TOTAL AND MB 2016-10-24 15:44:00 Test Item Value Reference Range Comments CREATINE KINASE TOTAL (BEAKER) (test code = 380) 117 U/L 29-200 CREATINE KINASE-MB (BEAKER) (test code = 750) 5.0 ng/mL 0. 0-6.6 CREATINE KINASE-MB INDEX (BEAKER) (test code = 4.3 % 395) Effective 01/24/2014: CK-MB Reference Range ChangeNew: 0.0-6.6 Previous: 0.0-4.9CK-MB Reference Range:<6.7 Normal6.7-10.0 Borderline>10.0 AbnormalURINALYSIS W/ [id number] 15:35:00 Test Item Value Reference Range Comments COLOR (BEAKER) (test code = 470) Light Yellow CLARITY (BEAKER) (test code = 469) Clear SPECIFIC GRAVITY UA (BEAKER) (test code = 468) 1.006 1 .001-1.035 PH UA (BEAKER) (test code = 467) 7.5 5.0-8.0 PROTEIN UA (BEAKER) (test code = 464) Negative Negative GLUCOSE UA (BEAKER) (test code = 365) Negative Negative KETONES UA (BEAKER) (test code = 371) Negative Negative BILIRUBIN UA (BEAKER) (test code = 462) Negative Negative BLOOD UA (BEAKER) (test code = 461) Trace Negative NITRITE UA (BEAKER) (test code = 465) Negative Negative LEUKOCYTE ESTERASE UA (BEAKER) (test code = Negative Nega tive 466) UROBILINOGEN UA (BEAKER) (test code = 463) 0.2 mg/dL 0.2-1 .0 RBC UA (BEAKER) (test code = 519) 2 /HPF WBC UA (BEAKER) (test code = 520) 2 /HPF BACTERIA (BEAKER) (test code = 517) Rare SQUAMOUS EPITHELIAL (BEAKER) (test code = 516) 1 /HPF SOURCE(BEAKER) (test code = 2795) Urine, [place] HEPATIC FUNCTION [id number] 15:06:00 Test Item Value Reference Range Comments TOTAL PROTEIN (BEAKER) (test code = 770) 7.4 gm/dL 6.0-8.3 ALBUMIN (BEAKER) (test code = 1145) 3.6 g/dL 3.5-5.0 BILIRUBIN TOTAL (BEAKER) (test code = 377) 0.3 mg/dL 0.2-1 .2 BILIRUBIN DIRECT (BEAKER) (test code = 706) 0.2 mg/dL 0.1- 0.5 ALKALINE PHOSPHATASE (BEAKER) (test code = 346) 97 U/L 40-150 AST (SGOT) (BEAKER) (test code = 353) 20 U/L 5-34 ALT (SGPT) (BEAKER) (test code = 347) 8 U/L 6-55 PROTHROMBIN [id number] 14:53:00 Test Item Value Reference Range Comments PROTIME (BEAKER) (test code = 759) 17.0 seconds 11.7-14.7 INR (BEAKER) (test code = 370) 1.4 <=5.9 RECOMMENDED COUMADIN/WARFARIN INR THERAPY RANGESSTANDARD DOSE: 2.0 - 3.0 Includes: PROPHYLAXIS forvenous thrombosis, systemic embolization; TREATMENT for venous thrombosis and/or pulmonary embolus.HIGH RISK: Target INR is 2.5-3.5 for patients with mechanical heart valves.[id number] 14:53:00 Test Item Value Reference Range Comments PARTIAL THROMBOPLASTIN TIME (BEAKER) (test code 33.9 seconds 22.5-36.0 = 760) BLOOD GAS, [id number] 14:44:00 Test Item Value Reference Range Comments PH ARTERIAL (BEAKER) (test code = 383) 7.36 7.35-7.45 PCO2 ARTERIAL (BEAKER) (test code = 384) 46 mmHg 35-45 PO2 ARTERIAL (BEAKER) (test code = 385) 51 mmHg 80-90 O2 SATURATION ARTERIAL (BEAKER) (test code = 84.2 % 96. 0-97.0 386) HCO3 ARTERIAL (BEAKER) (test code = 388) 25 mmol/L 21-29 BASE EXCESS ARTERIAL (BEAKER) (test code = 387) -0.6 mmol/L -2.0-3.0 PATIENT TEMPERATURE (BEAKER) (test code = 1818) 37.0 C FIO2 (BEAKER) (test code = 1819) 40.0 %
[2019-06-24 10:55] LABS: Absolute Lymphocytes (CBC) 1.6 K/uL (0.7-4.9); Basophils % 0.2 % (0-1.3); Hematocrit 29.9 % (36.0-45.0); Lymphocytes % 25.7 % (15.3-44.8); MPV 7.6 fL (7.6-11.3)
[2019-06-24 11:06] LABS: Potassium 3.2 mmol/L (3.5-5.1)
--- NOTE | 2019-06-24 11:09 | RAD REPORT ---
EXAM DESCRIPTION: RAD - Tib Fib Left - 06/24/2019 11:02 am CLINICAL HISTORY: PAIN COMPARISON: No comparisons FINDINGS: Prominent diffuse osteopenia is seen. Small calcaneal spurs are evident. No acute fracture or dislocation seen. Mild vascular calcifications.
--- NOTE | 2019-06-24 11:10 | RAD REPORT ---
EXAM DESCRIPTION: RAD - Foot Left 3 View - 06/24/2019 11:02 am CLINICAL HISTORY: PAIN COMPARISON: No comparisons FINDINGS: Diffuse osteopenia is seen. Moderate soft tissue swelling is seen along the dorsum of the foot. Acute fracture is not identified. Small calcaneal spurs are seen.
--- NOTE | 2019-06-24 11:33 | RAD REPORT ---
EXAM DESCRIPTION: US - Extremity Venous Uni Ltd - 06/24/2019 11:27 am CLINICAL HISTORY: PAIN Leg swelling and edema. COMPARISON: Extremity Venous Uni Ltd dated 12/28/2018 FINDINGS: Left lower extremity venous system was interrogated with Doppler technique. Normal flow, c ompressibility and augmentation was noted. There is no DVT present. IMPRESSION: No evidence of left lower extremity deep venous thrombosis.
--- NOTE | 2019-06-24 12:32 | EDPHYS ---
Physician Documentation [facility] Name: Lizette Evans Age: 88 yrs Sex: Female : 1930 Arrival Date: 06/24/2019 Time: 09:50 Bed 3 Private MD: ED Physician Rk Dawson HPI: 06/23 14:58 This 88 yrs old Black Female presents to ER via EMS with complaints of Leg Swelling. kdr 14:58 The patient was sent by family for possible increased pain and swelling to left lower kdr extremity. The patient reportedly has chronic pain in the left lower extremity but that may be worse. The patient herself denies pain but when the extremity is moved, she winces in apparent pain.. 18:31 Onset: The symptoms/episode began/occurred today, and became worse and became kdr persistent. Severity of symptoms: At their worst the symptoms were mild in the emergency department the symptoms are unchanged. The patient has experienced similar episodes in the past, multiple times, chronically. It is unknown whether or not the patient has recently seen a physician. Historical: - Allergies: 09:54 PENICILLINS; bp - PMHx: 09:54 ADD/ADHD; CVA; DVT; Hypertension; Seizures; TIA; Atrial Fib; bp - Immunization history:: Adult Immunizations unknown. - Social history:: Smoking status: Patient denies any tobacco usage or history of. ROS: 18:31 Constitutional: Negative for fever, chills, and weight loss, Eyes: Negative for injury, kdr pain, redness, and discharge, Neck: Negative for injury, pain, and swelling, Cardiovascular: Negative for chest pain, palpitations, and edema, Respiratory: Negative for shortness of breath, cough, wheezing, and pleuritic chest pain, Abdomen/GI: Negative for abdominal pain, nausea, vomiting, diarrhea, and constipation, Back: Negative for injury and pain, : Negative for injury, bleeding, discharge, and swelling, Psych: Negative for depression, anxiety, suicide ideation, homicidal ideation, and hallucinations, Allergy/Immunology: Negative for hives, rash, and allergies, Endocrine: Negative for neck swelling, polydipsia, polyuria, polyphagia, and marked weight changes, Hematologic/Lymphatic: Negative for swollen nodes, abnormal bleeding, and unusual bruising. 18:31 MS/extremity: Positive for decreased range of motion, pain, tenderness, Negative for injury or acute deformity, contusion, deformity, laceration, pain, paresthesias, tenderness. Exam: 18:31 Constitutional: This is a well developed, well nourished patient who is awake, alert, kdr and in no acute distress. Head/Face: Normocephalic, atraumatic. Eyes: Pupils equal round and reactive to light, extra-ocular motions intact. Lids and lashes normal. Conjunctiva and sclera are non-icteric and not injected. Cornea within normal limits. Periorbital areas with no swelling, redness, or edema. Neck: Trachea midline, no thyromegaly or masses palpated, and no cervical lymphadenopathy. Supple, full range of motion without nuchal rigidity, or vertebral point tenderness. No Meningismus. Chest/axilla: Normal chest wall appearance and motion. Nontender with no deformity. No lesions are appreciated. Cardiovascular: Regular rate and rhythm with a normal S1 and S2. No gallops, murmurs, or rubs. Normal PMI, no JVD. No pulse deficits. Respiratory: Lungs have equal breath sounds bilaterally, clear to auscultation and percussion. No rales, rhonchi or wheezes noted. No increased work of breathing, no retractions or nasal flaring. Abdomen/GI: Soft, non-tender, with normal bowel sounds. No distension or tympany. No guarding or rebound. No evidence of tenderness throughout. Back: No spinal tenderness. No costovertebral tenderness. Full range of motion. Skin: Warm, dry with normal turgor. Normal color with no rashes, no lesions, and no evidence of cellulitis. MS/ Extremity: Pulses equal, no cyanosis. Neurovascular intact. Full, normal range of motion. 18:31 Neuro: Orientation: to person, Not oriented to Vital Signs: 09:50 Weight 72.57 kg; bp 09:54 BP 98 / 48; Pulse 62; Resp 24; Pulse Ox 98% ; bp 09:59 BP 98 / 48; Pulse 63; Resp 14; Temp 97.8; Pulse Ox 99% on R/A; ph 10:58 BP 106 / 54; Pulse 59; Resp 22; Pulse Ox 99% on R/A; ph 11:58 BP 119 / 55; Pulse 59; Resp 17; Pulse Ox 99% ; bp 12:44 BP 110 / 64; Pulse 61; Resp 19; Pulse Ox 100% ; bp 13:35 Temp 97.6(A); ph MDM: 12:31 Patient medically screened. kdr 18:34 Data reviewed: vital signs, nurses notes, lab test result(s), radiologic studies. kdr Counseling: I had a detailed discussion with the patient and/or guardian regarding: the historical points, exam findings, and any diagnostic results supporting the discharge/admit diagnosis, lab results, radiology results, the need for outpatient follow up. 06/23 10:19 Order name: CBC with Diff; Complete Time: 12:27 kdr 06/23 10:19 Order name: Chem 7; Complete Time: 12:27 kdr 06/23 10:19 Order name: Tib Fib Left XRAY; Complete Time: 12:27 kdr 06/23 10:19 Order name: Foot Left 3 View XRAY; Complete Time: 12:27 kdr 06/23 10:19 Order name: US Extremity Venous Unilateral Ltd; Complete Time: 12:27 [facility] 06/23 12:47 Order name: Urine Dipstick--Ancillary (enter results) eb 06/23 10:19 Order name: Urine Dipstick-Ancillary (obtain specimen): Cath; Complete Time: 12:42 kdr Administered Medications: 13:10 Drug: Rocephin - (cefTRIAXone) 1 grams Route: IVPB; Infused Over: 30 mins; Site: right bp hand; 13:36 Follow up: Response: No adverse reaction; IV Status: Completed infusion ph Disposition: 06/24/19 12:31 Discharged to Home. Impression: Left Lower Extremity Pain. - Condition is Stable. - Discharge Instructions: Leg Cramps, Musculoskeletal Pain. - Medication Reconciliation Form, Thank You Letter form. - Follow up: Private Physician; When: 2 - 3 days; Reason: If symptoms return, Further diagnostic work-up, Recheck today's complaints, Continuance of care, Re-evaluation by your physician. - Problem is an ongoing problem. - Symptoms are unchanged. Signatures: Dispatcher [employer] EDMS Rk Dawson MD MD kdr Cindy Pan RN RN ph Presley Fisher RN RN bp Corrections: (The following items were deleted from the chart) 13:36 12:31 06/24/2019 12:31 Discharged to Home. Impression: Left Lower Extremity Pain. ph Condition is Stable. Forms are Medication Reconciliation Form, Thank You Letter, Antibiotic Education, Prescription Opioid Use. Follow up: Private Physician; When: 2 - 3 days; Reason: If symptoms return, Further diagnostic work-up, Recheck today's complaints, Continuance of care, Re-evaluation by your physician. Problem is an ongoing problem. Symptoms are unchanged. kdr
--- NOTE | 2019-06-24 12:32 | ER ---
Nurse's Notes [facility] Name: Lizette Evans Age: 88 yrs Sex: Female : 1930 Arrival Date: 06/24/2019 Time: 09:50 Bed 3 Private MD: Diagnosis: Left Lower Extremity Pain Presentation: 06/23 09:50 Chief complaint: EMS states: INCREASED LLE SWELLING/PAIN. Coronavirus screen: Proceed bp with normal triage. Ebola Screen: No symptoms or risks identified at this time. Initial Sepsis Screen: Does the patient meet any 2 criteria? Altered Mental Status. No. Patient's initial sepsis screen is negative. Does the patient have a suspected source of infection? Yes: Skin breakdown/wound. Risk Assessment: Do you want to hurt yourself or someone else? Patient reports no desire to harm self or others. Onset of symptoms is unknown. Care prior to arrival: IV initiated. 22 GA, in the right hand. 09:50 Method Of Arrival: EMS: [facility] bp 09:50 Acuity: ERICKA 3 bp Triage Assessment: 09:54 General: Appears in no apparent distress. uncomfortable, Behavior is cooperative, bp drowsy. Pain: Complains of pain in left leg. EENT: No deficits noted. Neuro: Level of Consciousness is obeys commands, confused, lethargic, Oriented to person. Cardiovascular: Rhythm is. Respiratory: No deficits noted. GI: Abdomen is. : No signs and/or symptoms were reported regarding the genitourinary system. Injury Description: Bruise. Historical: - Allergies: 09:54 PENICILLINS; bp - PMHx: 09:54 ADD/ADHD; CVA; DVT; Hypertension; Seizures; TIA; Atrial Fib; bp - Immunization history:: Adult Immunizations unknown. - Social history:: Smoking status: Patient denies any tobacco usage or history of. Screenin:02 Abuse screen: Denies threats or abuse. Denies injuries from another. Nutritional ph screening: No deficits noted. Tuberculosis screening: No symptoms or risk factors identified. Fall Risk No fall in past 12 months (0 pts). Secondary diagnosis (15 points) seizures, TIA, impaired mobility, CVA, IV access (20 points). Ambulatory Aid- None/Bed Rest/Nurse Assist (0 pts). Gait- Normal/Bed Rest/Wheelchair (0 pts) Mental Status- Overestimates/Forgets Limitations (15 pts.). Total Vega Fall Scale indicates High Risk Score (45 or more points). Fall prevention measures have been instituted. Side Rails Up X 2 Placed Close to Nursing Station Frequent Obs/Assessments Occuring As available patient and family educated on Fall Prevention Program and Strategies. Assessment: 10:02 General: SEE TRIAGE NOTE. bp 10:57 Reassessment: Patient appears in no apparent distress at this time. Patient and/or ph family updated on plan of care and expected duration. Pain level reassessed. US at bedside. 11:59 Reassessment: UOP PENDING. U/S COMPLETE. AWAITING FINAL RESULTS FOR DISPO. bp 12:44 Reassessment: PT D/C HOME, DX WITH LEG CRAMPS. TRANSPORT PENDING. bp 13:35 Reassessment: Patient appears in no apparent distress at this time. Patient and/or ph family updated on plan of care and expected duration. Pain level reassessed. IV antibiotics complete, pt assisted into wheelchair and d/c home w/ son. Vital Signs: 09:50 Weight 72.57 kg; bp 09:54 BP 98 / 48; Pulse 62; Resp 24; Pulse Ox 98% ; bp 09:59 BP 98 / 48; Pulse 63; Resp 14; Temp 97.8; Pulse Ox 99% on R/A; ph 10:58 BP 106 / 54; Pulse 59; Resp 22; Pulse Ox 99% on R/A; ph 11:58 BP 119 / 55; Pulse 59; Resp 17; Pulse Ox 99% ; bp 12:44 BP 110 / 64; Pulse 61; Resp 19; Pulse Ox 100% ; bp 13:35 Temp 97.6(A); ph ED Course: 09:50 Patient arrived in ED. bp 09:52 Triage completed. bp 09:54 Arm band placed on. bp 09:56 Rk Dawson MD is Attending Physician. kdr 10:02 Maintain EMS IV. Dressing intact. Good blood return noted. Site clean \T\ dry. Gauge \T\ bp site: 22 GAUGE R HAND. 10:03 Patient has correct armband on for positive identification. Bed in low position. Call ph light in reach. Side rails up X2. monitoring engineer on. Pulse ox on. NIBP on. Warm blanket given. 10:36 Presley Fisher, RN is Primary Nurse. bp 11:02 Tib Fib Left XRAY In Process Unspecified. EDMS 11:02 Foot Left 3 View XRAY In Process Unspecified. EDMS 11:27 US Extremity Venous Unilateral Ltd In Process Unspecified. EDMS 12:46 Straight cath inserted, using sterile technique, 16 Fr. Specimen obtained. Returned ph cloudy urine. Patient tolerated well. 12:46 No provider procedures requiring assistance completed. ph 13:36 IV discontinued, intact, bleeding controlled, No redness/swelling at site. Pressure ph dressing applied. Administered Medications: 13:10 Drug: Rocephin - (cefTRIAXone) 1 grams Route: IVPB; Infused Over: 30 mins; Site: right bp hand; 13:36 Follow up: Response: No adverse reaction; IV Status: Completed infusion ph Outcome: 12:31 Discharge ordered by . kdr 13:36 Discharged to home via wheelchair, with family. ph 13:36 Condition: good 13:36 Discharge instructions given to patient, family, Instructed on discharge instructions, follow up and referral plans. Demonstrated understanding of instructions, follow-up care. 13:36 Patient left the ED. ph Signatures: Dispatcher [employer] [facility] Rk Dawson MD MD kdr Cindy Pan RN RN ph rPesley Fisher, ALIYA RN bp
[2019-06-24 13:00] LABS: Urine Blood 3+ (NEG); Urine Glucose NEGATIVE (NEG); Urine Protein 2+ (NEG)
[2019-06-24] MEDS ORDERED: CEFTRIAXONE/SWI 1gm 1 GM/10 ML SYR ONE (13:12)
[2019-06-24] MEDS ORDERED: NA CHLORIDE 0.9% 100 ML IV ONE (13:12)
[2019-06-24 13:48] VITALS: BP 110/64; O2SAT 100
[2019-06-24 13:49] VITALS: TEMP 97.6
== END 2019-06-24 13:36 | disposition home or self-care (01) ==
LOC: ER 09:49
DX: M79.662 Pain in left lower leg (principal); I10 Essential (primary) hypertension; Z88.0 Allergy status to penicillin; Z86.73 Personal history of transient ischemic attack (TIA), and cerebral infarction without residual deficits
CPT/HCPCS: 96365; 85025; 80048; 36415; 81003; 73630; 73590; 93971; 51702; 99284; J0696

== ENCOUNTER 2019-08-01 21:07 | Inpatient (IN) | payer OTHER ==
--- OUTSIDE RECORDS SUMMARY | 2019-08-01 21:13 | XMS REPORT ---
:1930 Author Organization [facility] t Address [address] [place] [address] Care Team Providers Name Role Phone Doctor Unassigned, Name Attending Clinician Unavailable LAZARIDIS Attending Clinician Unavailable LAZARIDIS Admitting Clinician Unavailable Problems This patient has no known problems. Allergies, Adverse Reactions, Alerts This patient has no known allergies or adverse reactions. Medications This patient has no known medications. Procedures This patient has no known procedures. Encounters Start End Encounter Admission Attending Care Care Encounter Source Date/Time Date/Time Type Type Clinicians Facility Department ID 2018-11-18 2018-11-18 Orders Doctor ENEDELIA [id number] 00:00:00 00:00:00 Only Unassigned, HANH [id number] [facility] [id number] Results Test Description Test Time Test Comments Results Result Comments Source BLOOD CULTURE 2016-10-29 18:00:00 Test Item Value Reference Range Interpretation Comme nts CULTURE ([employer]) (test code = 1095) No growth in 5 days BLOOD [id number] 18:00:00 Test Item Value Reference Range Interpretation Comments CULTURE ([employer]) (test No growth in 5 days code = 1095) POCT-GLUCOSE [id number] 07:52:00 Test Item Value Reference Range Interpretation Comments POC-GLUCOSE METER 95 mg/dL 70-110 TESTED AT [facility] [address] ([facility]) (test code = RASHAD Farah [facility] [address] 1538) TSH/FREE T4 IF [id number] 06:35:00 Test Item Value Reference Range Interpretation Comments THYROID STIMULATING HORMONE 1.58 uIU/mL 0.35-4.94 (BEAKER) (test code = 772) VITAMIN D, [id number] 05:55:00 Test Item Value Reference Range Interpretation Comments VITAMIN D 25-OH (BEAKER) (test code = < ng/mL 13.0-47.8 L 2764) TROPONIN [id number] 05:12:00 Test Item Value Reference Range Interpretation Comments TROPONIN I (BEAKER) (test code = 0.02 ng/mL 0.00-0.03 397) Effective 01/24/2014: Reference Range ChangeNew: 0.00-0.03 Previous [...] renalfailure, acidosis, acute neurological disease, and persistent tachyarrhythmia.[id number] 05:04:00 Test Item Value Reference Range Interpretation Comments PHOSPHORUS (BEAKER) (test code = 2.9 mg/dL 2.3-4.7 604) [id number] 05:04:00 Test Item Value Reference Range Interpretation Comments MAGNESIUM (BEAKER) (test code = 1.9 mg/dL 1.6-2.6 627) BASIC METABOLIC [id number] 05:04:00 Test Item Value Reference Range Interpretation Comments SODIUM (BEAKER) 142 meq/L 136-145 (test code = 381) POTASSIUM (BEAKER) 3.9 meq/L 3.5-5.1 (test code = 379) CHLORIDE (BEAKER) 112 meq/L 98-107 H (test code = 382) CO2 (BEAKER) (test 23 meq/L 22-29 code = 355) BLOOD UREA NITROGEN 19 mg/dL 7-21 (BEAKER) (test code = 354) CREATININE (BEAKER) 0.84 mg/dL 0.57-1.25 (test code = 358) GLUCOSE RANDOM 107 mg/dL 70-105 H (BEAKER) (test code = 652) CALCIUM (BEAKER) 8.9 mg/dL 8.4-10.2 (test code = 697) EGFR (BEAKER) (test 78 mL/min/1.73 ESTIMA WALE GFR IS code = 1092) sq m NOT ACCURATE CREATININE CLEARANCE IN PREDICTING GLOMERULAR FILTRATION RATE . ESTIMATED GFR I S NOT APPLICABLE FOR DIALYSIS PATIEN TS. CBC W/PLT COUNT & AUTO [id number] 04:51:00 Test Item Value Reference Range Interpretation Comments WHITE BLOOD CELL COUNT (BEAKER) 8.3 K/ L 3.5-10.5 (test code = 775) RED BLOOD CELL COUNT (BEAKER) 3.07 M/ L 3.93-5.22 L (test code = 761) HEMOGLOBIN (BEAKER) (test code = 9.2 GM/DL 11.2-15.7 L 410) HEMATOCRIT (BEAKER) (test code = 29.1 % 34.1-44.9 L 411) MEAN CORPUSCULAR VOLUME (BEAKER) 94.8 fL 79.4-94.8 (test code = 753) MEAN CORPUSCULAR HEMOGLOBIN 30.0 pg 25.6-32.2 (BEAKER) (test code = 751) MEAN CORPUSCULAR HEMOGLOBIN CONC 31.6 GM/DL 32.2-35.5 L (BEAKER) (test code = 752) RED CELL DISTRIBUTION WIDTH 14.3 % 11.7-14.4 (BEAKER) (test code = 412) PLATELET COUNT (BEAKER) (test 182 K/CU MM 150-450 code = 756) MEAN PLATELET VOLUME (BEAKER) 9.8 fL 9.4-12.3 (test code = 754) NUCLEATED RED BLOOD CELLS 0 /100 WBC 0-0 (BEAKER) (test code = 413) NEUTROPHILS RELATIVE PERCENT 61 % (BEAKER) (test code = 429) LYMPHOCYTES RELATIVE PERCENT 31 % (BEAKER) (test code = 430) MONOCYTES RELATIVE PERCENT 8 % (BEAKER) (test code = 431) EOSINOPHILS RELATIVE PERCENT 0 % (BEAKER) (test code = 432) BASOPHILS RELATIVE PERCENT 1 % (BEAKER) (test code = 437) NEUTROPHILS ABSOLUTE COUNT 5.03 K/ L 1.56-6.13 (BEAKER) (test code = 670) LYMPHOCYTES ABSOLUTE COUNT 2.54 K/ L 1.18-3.74 (BEAKER) (test code = 414) MONOCYTES ABSOLUTE COUNT (BEAKER) 0.64 K/ L 0.24-0.36 H (test code = 415) EOSINOPHILS ABSOLUTE COUNT 0.01 K/ L 0.04-0.36 L (BEAKER) (test code = 416) BASOPHILS ABSOLUTE COUNT (BEAKER) 0.05 K/ L 0.01-0.08 (test code = 417) IMMATURE GRANULOCYTES-RELATIVE 1 % 0-1 PERCENT (BEAKER) (test code = 2801) POCT-GLUCOSE [id number] 23:47:00 Test Item Value Reference Range Interpretation Comments POC-GLUCOSE METER 121 mg/dL 70-110 H TESTED AT [facility] 6720 (BEAKER) (test code = RASHAD ALLRED 1538) [address] CBC W/PLT COUNT & AUTO [id number] 07:13:00 Test Item Value Reference Range Interpretation Comments WHITE BLOOD CELL COUNT (BEAKER) 8.9 K/ L 3.5-10.5 (test code = 775) RED BLOOD CELL COUNT (BEAKER) 3.47 M/ L 3.93-5.22 L (test code = 761) HEMOGLOBIN (BEAKER) (test code = 10.6 GM/DL 11.2-15.7 L 410) HEMATOCRIT (BEAKER) (test code = 33.4 % 34.1-44.9 L 411) MEAN CORPUSCULAR VOLUME (BEAKER) 96.3 fL 79.4-94.8 H (test code = 753) MEAN CORPUSCULAR HEMOGLOBIN 30.5 pg 25.6-32.2 (BEAKER) (test code = 751) MEAN CORPUSCULAR HEMOGLOBIN CONC 31.7 GM/DL 32.2-35.5 L (BEAKER) (test code = 752) RED CELL DISTRIBUTION WIDTH 14.6 % 11.7-14.4 H (BEAKER) (test code = 412) PLATELET COUNT (BEAKER) (test 206 K/CU MM 150-450 code = 756) MEAN PLATELET VOLUME (BEAKER) 10.2 fL 9.4-12.3 (test code = 754) NUCLEATED RED BLOOD CELLS 0 /100 WBC 0-0 (BEAKER) (test code = 413) NEUTROPHILS RELATIVE PERCENT 66 % (BEAKER) (test code = 429) LYMPHOCYTES RELATIVE PERCENT 28 % (BEAKER) (test code = 430) MONOCYTES RELATIVE PERCENT 6 % (BEAKER) (test code = 431) EOSINOPHILS RELATIVE PERCENT 0 % (BEAKER) (test code = 432) BASOPHILS RELATIVE PERCENT 1 % (BEAKER) (test code = 437) NEUTROPHILS ABSOLUTE COUNT 5.84 K/ L 1.56-6.13 (BEAKER) (test code = 670) LYMPHOCYTES ABSOLUTE COUNT 2.47 K/ L 1.18-3.74 (BEAKER) (test code = 414) MONOCYTES ABSOLUTE COUNT (BEAKER) 0.51 K/ L 0.24-0.36 H (test code = 415) EOSINOPHILS ABSOLUTE COUNT 0.01 K/ L 0.04-0.36 L (BEAKER) (test code = 416) BASOPHILS ABSOLUTE COUNT (BEAKER) 0.06 K/ L 0.01-0.08 (test code = 417) IMMATURE GRANULOCYTES-RELATIVE 0 % 0-1 PERCENT (BEAKER) (test code = 2801) PHENYTOIN LEVEL, [id number] 06:29:00 Test Item Value Reference Range Interpretation Comments PHENYTOIN (DILANTIN) (BEAKER) 21.3 ug/mL 10.0-20.0 H (test code = 605) Prior to morning dose [id number] 06:18:00 Test Item Value Reference Range Interpretation Comments PHOSPHORUS (BEAKER) (test code = 2.8 mg/dL 2.3-4.7 604) [id number] 06:18:00 Test Item Value Reference Range Interpretation Comments MAGNESIUM (BEAKER) (test code = 2.1 mg/dL 1.6-2.6 627) BASIC METABOLIC [id number] 06:18:00 Test Item Value Reference Range Interpretation Comments SODIUM (BEAKER) 142 meq/L 136-145 (test code = 381) POTASSIUM (BEAKER) 3.7 meq/L 3.5-5.1 (test code = 379) CHLORIDE (BEAKER) 109 meq/L 98-107 H (test code = 382) CO2 (BEAKER) (test 24 meq/L 22-29 code = 355) BLOOD UREA NITROGEN 12 mg/dL 7-21 (BEAKER) (test code = 354) CREATININE (BEAKER) 0.78 mg/dL 0.57-1.25 (test code = 358) GLUCOSE RANDOM 87 mg/dL 70-105 (BEAKER) (test code = 652) CALCIUM (BEAKER) 9.4 mg/dL 8.4-10.2 (test code = 697) EGFR (BEAKER) (test 85 mL/min/1.73 ESTIMA WALE GFR IS code = 1092) sq m NOT ACCURATE CREATININE CLEARANCE IN PREDICTING GLOMERULAR FILTRATION RATE . ESTIMATED GFR I S NOT APPLICABLE FOR DIALYSIS PATIEN TS. [id number] 06:12:00 Test Item Value Reference Range Interpretation Comments POTASSIUM (BEAKER) 4.0 meq/L 3.5-5.1 Specimen slightly (test code = 379) hemolyzed [id number] 09:55:00 Test Item Value Reference Range Interpretation Comments PHOSPHORUS (BEAKER) (test code = 2.5 mg/dL 2.3-4.7 604) PHENYTOIN LEVEL, [id number] 07:57:00 Test Item Value Reference Range Interpretation Comments PHENYTOIN (DILANTIN) (BEAKER) 20.0 ug/mL 10.0-20.0 (test code = 605) BLOOD GAS, [id number] 05:02:00 Test Item Value Reference Range Interpretation Comments PH ARTERIAL (BEAKER) (test code = 7.46 7.35-7.45 H 383) PCO2 ARTERIAL (BEAKER) (test code 39 mmHg 35-45 = 384) PO2 ARTERIAL (BEAKER) (test code = 144 mmHg 80-90 H 385) O2 SATURATION ARTERIAL (BEAKER) 99.0 % 96.0-97.0 H (test code = 386) HCO3 ARTERIAL (BEAKER) (test code 27 mmol/L 21-29 = 388) BASE EXCESS ARTERIAL (BEAKER) 3.0 mmol/L -2.0-3.0 (test code = 387) PATIENT TEMPERATURE (BEAKER) (test 37.0 C code = 1818) FIO2 (BEAKER) (test code = 1819) 21.0 % BASIC METABOLIC [id number] 04:34:00 Test Item Value Reference Range Interpretation Comments SODIUM (BEAKER) 144 meq/L 136-145 (test code = 381) POTASSIUM (BEAKER) 3.5 meq/L 3.5-5.1 (test code = 379) CHLORIDE (BEAKER) 112 meq/L 98-107 H (test code = 382) CO2 (BEAKER) (test 24 meq/L 22-29 code = 355) BLOOD UREA NITROGEN 9 mg/dL 7-21 (BEAKER) (test code = 354) CREATININE (BEAKER) 0.80 mg/dL 0.57-1.25 (test code = 358) GLUCOSE RANDOM 108 mg/dL 70-105 H (BEAKER) (test code = 652) CALCIUM (BEAKER) 9.2 mg/dL 8.4-10.2 (test code = 697) EGFR (BEAKER) (test 82 mL/min/1.73 ESTIMA WALE GFR IS code = 1092) sq m NOT ACCURATE CREATININE CLEARANCE IN PREDICTING GLOMERULAR FILTRATION RATE . ESTIMATED GFR I S NOT APPLICABLE FOR DIALYSIS PATIEN TS. [id number] 04:30:00 Test Item Value Reference Range Interpretation Comments MAGNESIUM (BEAKER) (test code = 2.3 mg/dL 1.6-2.6 627) CBC W/PLT COUNT & AUTO [id number] 04:12:00 Test Item Value Reference Range Interpretation Comments WHITE BLOOD CELL COUNT (BEAKER) 9.7 K/ L 3.5-10.5 (test code = 775) RED BLOOD CELL COUNT (BEAKER) 3.07 M/ L 3.93-5.22 L (test code = 761) HEMOGLOBIN (BEAKER) (test code = 9.4 GM/DL 11.2-15.7 L 410) HEMATOCRIT (BEAKER) (test code = 29.4 % 34.1-44.9 L 411) MEAN CORPUSCULAR VOLUME (BEAKER) 95.8 fL 79.4-94.8 H (test code = 753) MEAN CORPUSCULAR HEMOGLOBIN 30.6 pg 25.6-32.2 (BEAKER) (test code = 751) MEAN CORPUSCULAR HEMOGLOBIN CONC 32.0 GM/DL 32.2-35.5 L (BEAKER) (test code = 752) RED CELL DISTRIBUTION WIDTH 14.4 % 11.7-14.4 (BEAKER) (test code = 412) PLATELET COUNT (BEAKER) (test 182 K/CU MM 150-450 code = 756) MEAN PLATELET VOLUME (BEAKER) 9.4 fL 9.4-12.3 (test code = 754) NUCLEATED RED BLOOD CELLS 0 /100 WBC 0-0 (BEAKER) (test code = 413) NEUTROPHILS RELATIVE PERCENT 71 % (BEAKER) (test code = 429) LYMPHOCYTES RELATIVE PERCENT 21 % (BEAKER) (test code = 430) MONOCYTES RELATIVE PERCENT 7 % (BEAKER) (test code = 431) EOSINOPHILS RELATIVE PERCENT 0 % (BEAKER) (test code = 432) BASOPHILS RELATIVE PERCENT 1 % (BEAKER) (test code = 437) NEUTROPHILS ABSOLUTE COUNT 6.89 K/ L 1.56-6.13 H (BEAKER) (test code = 670) LYMPHOCYTES ABSOLUTE COUNT 2.05 K/ L 1.18-3.74 (BEAKER) (test code = 414) MONOCYTES ABSOLUTE COUNT (BEAKER) 0.65 K/ L 0.24-0.36 H (test code = 415) EOSINOPHILS ABSOLUTE COUNT 0.01 K/ L 0.04-0.36 L (BEAKER) (test code = 416) BASOPHILS ABSOLUTE COUNT (BEAKER) 0.06 K/ L 0.01-0.08 (test code = 417) IMMATURE GRANULOCYTES-RELATIVE 0 % 0-1 PERCENT (BEAKER) (test code = 2801) PHENYTOIN LEVEL, [id number] 22:07:00 Test Item Value Reference Range Interpretation Comments PHENYTOIN (DILANTIN) (BEAKER) 14.2 ug/mL 10.0-20.0 (test code = 605) POCT-GLUCOSE [id number] 13:56:00 Test Item Value Reference Range Interpretation Comments POC-GLUCOSE METER 119 mg/dL 70-110 H TESTED AT [facility] 6720 (BEAKER) (test code = RASHAD [place] 1538) [id number] URINE [id number] 11:44:00 Test Item Value Reference Range Interpretation Comments CULTURE (BEAKER) (test code = See comment 1095) <10,000 col/mL Gram Negative rodsSPUTUM CULTURE + GRAM [id number] 09:04:00 Test Item Value Reference Range Interpretation Comments CULTURE (BEAKER) 4+ Normal respiratory (test code = 1095) rachel present GRAM STAIN RESULT 1+ WBCs (BEAKER) (test code = 1123) GRAM STAIN RESULT 0-5 epithelial cells (BEAKER) (test code = 41488) GRAM STAIN RESULT 2+ gram positive cocci (BEAKER) (test code = in chains and pairs 41964) [id number] 05:12:00 Test Item Value Reference Range Interpretation Comments MAGNESIUM (BEAKER) 2.5 mg/dL 1.6-2.6 Specimen slightly (test code = 627) hemolyzed [id number] 05:12:00 Test Item Value Reference Range Interpretation Comments PHOSPHORUS (BEAKER) 2.2 mg/dL 2.3-4.7 L Specimen slightly (test code = 604) hemolyzed BASIC METABOLIC [id number] 05:12:00 Test Item Value Reference Range Interpretation Comments SODIUM (BEAKER) 142 meq/L 136-145 (test code = 381) POTASSIUM (BEAKER) 4.0 meq/L 3.5-5.1 Specimen slightly (test code = 379) hemolyzed CHLORIDE (BEAKER) 108 meq/L 98-107 H (test code = 382) CO2 (BEAKER) (test 22 meq/L 22-29 code = 355) BLOOD UREA NITROGEN 11 mg/dL 7-21 (BEAKER) (test code = 354) CREATININE (BEAKER) 0.92 mg/dL 0.57-1.25 Specimen slightly (test code = 358) hemolyzed GLUCOSE RANDOM 94 mg/dL 70-105 (BEAKER) (test code = 652) CALCIUM (BEAKER) 9.7 mg/dL 8.4-10.2 (test code = 697) EGFR (BEAKER) (test mL/min/1.73 INSUFFIC IENT CLINICAL code = 1092) sq m DATA TO CALCULA TE ESTIMATED GFR. CBC W/PLT COUNT & AUTO [id number] 05:01:00 Test Item Value Reference Range Interpretation Comments WHITE BLOOD CELL COUNT (BEAKER) 12.6 K/ L 3.5-10.5 H (test code = 775) RED BLOOD CELL COUNT (BEAKER) 3.42 M/ L 3.93-5.22 L (test code = 761) HEMOGLOBIN (BEAKER) (test code = 10.3 GM/DL 11.2-15.7 L 410) HEMATOCRIT (BEAKER) (test code = 32.4 % 34.1-44.9 L 411) MEAN CORPUSCULAR VOLUME (BEAKER) 94.7 fL 79.4-94.8 (test code = 753) MEAN CORPUSCULAR HEMOGLOBIN 30.1 pg 25.6-32.2 (BEAKER) (test code = 751) MEAN CORPUSCULAR HEMOGLOBIN CONC 31.8 GM/DL 32.2-35.5 L (BEAKER) (test code = 752) RED CELL DISTRIBUTION WIDTH 14.2 % 11.7-14.4 (BEAKER) (test code = 412) PLATELET COUNT (BEAKER) (test 219 K/CU MM 150-450 code = 756) MEAN PLATELET VOLUME (BEAKER) 10.0 fL 9.4-12.3 (test code = 754) NUCLEATED RED BLOOD CELLS 0 /100 WBC 0-0 (BEAKER) (test code = 413) NEUTROPHILS RELATIVE PERCENT 57 % (BEAKER) (test code = 429) LYMPHOCYTES RELATIVE PERCENT 35 % (BEAKER) (test code = 430) MONOCYTES RELATIVE PERCENT 7 % (BEAKER) (test code = 431) EOSINOPHILS RELATIVE PERCENT 0 % (BEAKER) (test code = 432) BASOPHILS RELATIVE PERCENT 1 % (BEAKER) (test code = 437) NEUTROPHILS ABSOLUTE COUNT 7.19 K/ L 1.56-6.13 H (BEAKER) (test code = 670) LYMPHOCYTES ABSOLUTE COUNT 4.39 K/ L 1.18-3.74 H (BEAKER) (test code = 414) MONOCYTES ABSOLUTE COUNT (BEAKER) 0.91 K/ L 0.24-0.36 H (test code = 415) EOSINOPHILS ABSOLUTE COUNT 0.01 K/ L 0.04-0.36 L (BEAKER) (test code = 416) BASOPHILS ABSOLUTE COUNT (BEAKER) 0.06 K/ L 0.01-0.08 (test code = 417) IMMATURE GRANULOCYTES-RELATIVE 0 % 0-1 PERCENT (BEAKER) (test code = 2801) [id number] 21:19:00 Test Item Value Reference Range Interpretation Comments POTASSIUM (BEAKER) (test code = 3.8 meq/L 3.5-5.1 379) POCT-GLUCOSE [id number] 18:19:00 Test Item Value Reference Range Interpretation Comments POC-GLUCOSE METER 113 mg/dL 70-110 H TESTED AT [facility] 6720 (BEAKER) (test code = RASHAD ALLRED 1538) [id number] POCT-GLUCOSE [id number] 13:32:00 Test Item Value Reference Range Interpretation Comments POC-GLUCOSE METER 107 mg/dL 70-110 TESTED AT [facility] 6720 (BEAKER) (test code = RASHAD Farah [place] 1538) [address] POCT-GLUCOSE [id number] 07:32:00 Test Item Value Reference Range Interpretation Comments POC-GLUCOSE METER 105 mg/dL 70-110 TESTED AT [facility] 6720 (BEAKER) (test code = RASHAD Farah [place] 1538) [id number] BASIC METABOLIC [id number] 05:54:00 Test Item Value Reference Range Interpretation Comments SODIUM (BEAKER) 143 meq/L 136-145 (test code = 381) POTASSIUM (BEAKER) 3.3 meq/L 3.5-5.1 L Specimen slightly (test code = 379) hemolyzed CHLORIDE (BEAKER) 109 meq/L 98-107 H (test code = 382) CO2 (BEAKER) (test 24 meq/L 22-29 code = 355) BLOOD UREA NITROGEN 11 mg/dL 7-21 (BEAKER) (test code = 354) CREATININE (BEAKER) 0.79 mg/dL 0.57-1.25 Specimen slightly (test code = 358) hemolyzed GLUCOSE RANDOM 98 mg/dL 70-105 (BEAKER) (test code = 652) CALCIUM (BEAKER) 9.2 mg/dL 8.4-10.2 (test code = 697) EGFR (BEAKER) (test mL/min/1.73 INSUFFIC IENT CLINICAL code = 1092) sq m DATA TO CALCULA TE ESTIMATED GFR. BLOOD GAS, [id number] 05:44:00 Test Item Value Reference Range Interpretation Comments PH ARTERIAL (BEAKER) (test code = 7.45 7.35-7.45 383) PCO2 ARTERIAL (BEAKER) (test code 40 mmHg 35-45 = 384) PO2 ARTERIAL (BEAKER) (test code = 59 mmHg 80-90 L 385) O2 SATURATION ARTERIAL (BEAKER) 91.1 % 96.0-97.0 L (test code = 386) HCO3 ARTERIAL (BEAKER) (test code 27 mmol/L 21-29 = 388) BASE EXCESS ARTERIAL (BEAKER) 2.6 mmol/L -2.0-3.0 (test code = 387) PATIENT TEMPERATURE (BEAKER) (test 37.5 C code = 1818) FIO2 (BEAKER) (test code = 1819) 40.0 % [id number] 05:38:00 Test Item Value Reference Range Interpretation Comments MAGNESIUM (BEAKER) 2.4 mg/dL 1.6-2.6 Specimen slightly (test code = 627) hemolyzed [id number] 05:38:00 Test Item Value Reference Range Interpretation Comments PHOSPHORUS (BEAKER) 2.0 mg/dL 2.3-4.7 L Specimen slightly (test code = 604) hemolyzed CBC W/PLT COUNT & AUTO [id number] 05:14:00 Test Item Value Reference Range Interpretation Comments WHITE BLOOD CELL COUNT (BEAKER) 9.8 K/ L 3.5-10.5 (test code = 775) RED BLOOD CELL COUNT (BEAKER) 3.07 M/ L 3.93-5.22 L (test code = 761) HEMOGLOBIN (BEAKER) (test code = 9.5 GM/DL 11.2-15.7 L 410) HEMATOCRIT (BEAKER) (test code = 29.6 % 34.1-44.9 L 411) MEAN CORPUSCULAR VOLUME (BEAKER) 96.4 fL 79.4-94.8 H (test code = 753) MEAN CORPUSCULAR HEMOGLOBIN 30.9 pg 25.6-32.2 (BEAKER) (test code = 751) MEAN CORPUSCULAR HEMOGLOBIN CONC 32.1 GM/DL 32.2-35.5 L (BEAKER) (test code = 752) RED CELL DISTRIBUTION WIDTH 14.2 % 11.7-14.4 (BEAKER) (test code = 412) PLATELET COUNT (BEAKER) (test 192 K/CU MM 150-450 code = 756) MEAN PLATELET VOLUME (BEAKER) 10.0 fL 9.4-12.3 (test code = 754) NUCLEATED RED BLOOD CELLS 0 /100 WBC 0-0 (BEAKER) (test code = 413) NEUTROPHILS RELATIVE PERCENT 74 % (BEAKER) (test code = 429) LYMPHOCYTES RELATIVE PERCENT 18 % (BEAKER) (test code = 430) MONOCYTES RELATIVE PERCENT 8 % (BEAKER) (test code = 431) EOSINOPHILS RELATIVE PERCENT 0 % (BEAKER) (test code = 432) BASOPHILS RELATIVE PERCENT 0 % (BEAKER) (test code = 437) NEUTROPHILS ABSOLUTE COUNT 7.28 K/ L 1.56-6.13 H (BEAKER) (test code = 670) LYMPHOCYTES ABSOLUTE COUNT 1.72 K/ L 1.18-3.74 (BEAKER) (test code = 414) MONOCYTES ABSOLUTE COUNT (BEAKER) 0.76 K/ L 0.24-0.36 H (test code = 415) EOSINOPHILS ABSOLUTE COUNT 0.00 K/ L 0.04-0.36 L (BEAKER) (test code = 416) BASOPHILS ABSOLUTE COUNT (BEAKER) 0.03 K/ L 0.01-0.08 (test code = 417) IMMATURE GRANULOCYTES-RELATIVE 1 % 0-1 PERCENT (BEAKER) (test code = 2801) RAD, CHEST, 1 VIEW, NON [id number] 03:01:00Reason for exam:->ETT verficiationShould this be performed [...] MDReport Verified Date/Time: 10/25/2016 03:01:35 Reading Location: [address] Reading Room TROPONIN [id number] 02:55:00 Test Item Value Reference Range Interpretation Comments TROPONIN I (BEAKER) (test code = 0.31 ng/mL 0.00-0.03 HH 397) Effective 01/24/2014: Reference Range ChangeNew: 0.00-0.03 Previous [...] 2016-10-25 02:36:00 Test Item Value Reference Range Interpretation Comments CREATINE KINASE TOTAL (BEAKER) 260 U/L 29-200 H (test code = 380) CREATINE KINASE-MB (BEAKER) (test 4.5 ng/mL 0.0-6.6 code = 750) CREATINE KINASE-MB INDEX (BEAKER) 1.7 % (test code = 395) Effective 01/24/2014: CK-MB Reference Range ChangeNew: 0.0-6.6 Previous: 0.0-4.9CK-MB Reference Range:<6.7 Normal6.7-10.0 Borderline>10.0 AbnormalPOCT-GLUCOSE [id number] 00:18:00 Test Item Value Reference Range Interpretation Comments POC-GLUCOSE METER 103 mg/dL 70-110 TESTED AT [facility] [address] ([facility]) (test code = [place] 1538) [address] BASIC METABOLIC [id number] 18:32:00 Test Item Value Reference Range Interpretation Comments SODIUM (BEAKER) 142 meq/L 136-145 (test code = 381) POTASSIUM (BEAKER) 3.0 meq/L 3.5-5.1 L (test code = 379) CHLORIDE (BEAKER) 107 meq/L 98-107 (test code = 382) CO2 (BEAKER) (test 22 meq/L 22-29 code = 355) BLOOD UREA NITROGEN 14 mg/dL 7-21 (BEAKER) (test code = 354) CREATININE (BEAKER) 0.97 mg/dL 0.57-1.25 (test code = 358) GLUCOSE RANDOM 119 mg/dL 70-105 H (ASHOKAKER) (test code = 652) CALCIUM (BEAKER) 8.9 mg/dL 8.4-10.2 (test code = 697) EGFR (BEAKER) (test mL/min/1.73 INSUFFIC IENT CLINICAL code = 1092) sq m DATA TO CALCULA TE ESTIMATED GFR. [id number] 18:23:00 Test Item Value Reference Range Interpretation Comments PHOSPHORUS (BEAKER) (test code = 1.6 mg/dL 2.3-4.7 L 604) [id number] 18:23:00 Test Item Value Reference Range Interpretation Comments MAGNESIUM (BEAKER) (test code = 1.6 mg/dL 1.6-2.6 627) POCT-GLUCOSE [id number] 18:16:00 Test Item Value Reference Range Interpretation Comments POC-GLUCOSE METER 118 mg/dL 70-110 H TESTED AT [facility] [address] ([facility]) (test code = RASHAD Farah [facility] 1538) [id number] TROPONIN [id number] 16:10:00 Test Item Value Reference Range Interpretation Comments TROPONIN I (MAT) (test code = 0.27 ng/mL 0.00-0.03 HH 397) Effective 01/24/2014: Reference Range ChangeNew: 0.00-0.03 Previous [...] 2016-10-24 15:44:00 Test Item Value Reference Range Interpretation Comments CREATINE KINASE TOTAL (ASHOKAKER) 117 U/L 29-200 (test code = 380) CREATINE KINASE-MB (BEAKER) (test 5.0 ng/mL 0.0-6.6 code = 750) CREATINE KINASE-MB INDEX (ASHOKAKER) 4.3 % (test code = 395) Effective 01/24/2014: CK-MB Reference Range ChangeNew: 0.0-6.6 Previous: 0.0-4.9CK-MB Reference Range:<6.7 Normal6.7-10.0 Borderline>10.0 AbnormalURINALYSIS W/ [id number] 15:35:00 Test Item Value Reference Range Interpretation Comments COLOR (BEAKER) (test code = 470) Light Yellow CLARITY (BEAKER) (test code = Clear 469) SPECIFIC GRAVITY UA (BEAKER) 1.006 1.001-1.035 (test code = 468) PH UA (BEAKER) (test code = 467) 7.5 5.0-8.0 PROTEIN UA (BEAKER) (test code = Negative Negative 464) GLUCOSE UA (BEAKER) (test code = Negative Negative 365) KETONES UA (BEAKER) (test code = Negative Negative 371) BILIRUBIN UA (BEAKER) (test code Negative Negative = 462) BLOOD UA (BEAKER) (test code = Trace Negative A 461) NITRITE UA (BEAKER) (test code = Negative Negative 465) LEUKOCYTE ESTERASE UA (BEAKER) Negative Negative (test code = 466) UROBILINOGEN UA (BEAKER) (test 0.2 mg/dL 0.2-1.0 code = 463) RBC UA (BEAKER) (test code = 2 /HPF 519) WBC UA (BEAKER) (test code = 2 /HPF 520) BACTERIA (BEAKER) (test code = Rare 517) SQUAMOUS EPITHELIAL (BEAKER) 1 /HPF (test code = 516) SOURCE(BEAKER) (test code = Urine, [place] 2986) HEPATIC FUNCTION [id number] 15:06:00 Test Item Value Reference Range Interpretation Comments TOTAL PROTEIN (BEAKER) (test code = 7.4 gm/dL 6.0-8.3 770) ALBUMIN (BEAKER) (test code = 1145) 3.6 g/dL 3.5-5.0 BILIRUBIN TOTAL (BEAKER) (test code 0.3 mg/dL 0.2-1.2 = 377) BILIRUBIN DIRECT (BEAKER) (test 0.2 mg/dL 0.1-0.5 code = 706) ALKALINE PHOSPHATASE (BEAKER) (test 97 U/L 40-150 code = 346) AST (SGOT) (BEAKER) (test code = 20 U/L 5-34 353) ALT (SGPT) (BEAKER) (test code = 8 U/L 6-55 347) PROTHROMBIN [id number] 14:53:00 Test Item Value Reference Range Interpretation Comments PROTIME (BEAKER) (test code = 17.0 seconds 11.7-14.7 H 759) INR (BEAKER) (test code = 370) 1.4 <=5.9 RECOMMENDED COUMADIN/WARFARIN INR THERAPY RANGESSTANDARD DOSE: 2.0 - 3.0 Includes: PROPHYLAXIS forvenous thrombosis, systemic embolization; TREATMENT for venous thrombosis and/or pulmonary embolus.HIGH RISK: Target INR is 2.5-3.5 for patients with mechanical heart valves.[id number] 14:53:00 Test Item Value Reference Range Interpretation Comments PARTIAL THROMBOPLASTIN TIME 33.9 seconds 22.5-36.0 (BEAKER) (test code = 760) BLOOD GAS, [id number] 14:44:00 Test Item Value Reference Range Interpretation Comments PH ARTERIAL (BEAKER) (test code = 7.36 7.35-7.45 383) PCO2 ARTERIAL (BEAKER) (test code 46 mmHg 35-45 H = 384) PO2 ARTERIAL (BEAKER) (test code 51 mmHg 80-90 L = 385) O2 SATURATION ARTERIAL (BEAKER) 84.2 % 96.0-97.0 L (test code = 386) HCO3 ARTERIAL (BEAKER) (test code 25 mmol/L 21-29 = 388) BASE EXCESS ARTERIAL (BEAKER) -0.6 mmol/L -2.0-3.0 (test code = 387) PATIENT TEMPERATURE (BEAKER) 37.0 C (test code = 1818) FIO2 (BEAKER) (test code = 1819) 40.0 %
--- OUTSIDE RECORDS SUMMARY | 2019-08-01 21:13 | XMS REPORT | Clinical Summary ---
:1930 Author Organization [facility] Address [address] [place] [address] Care Team Providers Name Role Phone Sharpless Primary Care Provider Unavailable Allergies Active Allergy Reactions Severity Noted Date Comments Penicillins Other (See Comments) High 09/22/2015 Unknown reaction Medications Medication Sig Dispensed Refills Start Date End Date Status tolterodine (DETROL) 2 Take 2 mg by 0 Active MG tabletIndications: mouth 2 (two) urinary urgency times daily. 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
[2019-08-01] MEDS ORDERED: NA CHLORIDE 0.9% 2,000 ML ONE (21:40)
[2019-08-01] MEDS ORDERED: ACETAMINOPHEN 500 MG TAB ONE (21:40)
[2019-08-01] MEDS ORDERED: CEFTRIAXONE/SWI 1gm 1 GM/10 ML SYR ONE (21:40)
[2019-08-01 21:44] LABS: Absolute Lymphocytes (CBC) 0.4 K/uL (0.7-4.9); Basophils % 0.4 % (0-1.3); Hematocrit 29.3 % (36.0-45.0); Lymphocytes % 1.8 % (15.3-44.8); MPV 8.7 fL (7.6-11.3); RBC Red Blood Cell Count 2.96 M/uL (3.86-4.86)
[2019-08-01 21:59] LABS: Protime INR 1.79
[2019-08-01 22:05] LABS: Albumin 2.4 g/dL (3.4-5.0); Alkaline Phosphatase 95 U/L (45-117); Amylase 74 U/L (25-115); BUN Blood Urea Nitrogen 41 mg/dL (7-18); Bicarbonate 25 mmol/L (21-32); Bilirubin Direct 0.2 mg/dL (0-0.2); Bilirubin Total 0.4 mg/dL (0.2-1.0); CKMB Creatine Kinase MB < 1.0 ng/mL (0.3-3.6); Creatine Phosphokinase 70 U/L (26-192); Glucose Level 130 mg/dL (74-106); Lipase 35 U/L (73-393); Protein, Total 7.2 g/dL (6.4-8.2); Sodium Level 137 mmol/L (136-145); Troponin (Emerg Dept Use Only) < 0.02 ng/mL (0.0-0.045)
--- NOTE | 2019-08-01 22:05 | RAD REPORT ---
EXAM DESCRIPTION: RAD - Chest Single View - 08/01/2019 9:58 pm CLINICAL HISTORY: CONGESTION Chest pain. COMPARISON: Chest Single View dated 05/14/2018; Chest Pa And Lat (2 Views) dated 05/03/2018; Chest Sing le View dated 04/07/2018; Chest Pa And Lat (2 Views) dated 06/19/2017 FINDINGS: Portable technique limits examination quality. Mild interstitial prominence is present suggesting interstitial pulmonary edema or interstitial pneum onia. The heart is moderately enlarged in size. Tortuous thoracic aorta.
[2019-08-01 22:06] LABS: ALT/SGPT < 6 U/L (12-78); AST/SGOT 15 U/L (15-37)
[2019-08-01] MEDS ORDERED: ACETAMINOPHEN 650MG/RECT SUPP PR ONE (22:14)
[2019-08-01 22:30] LABS: Blood Morphology Comment NOT SEEN (NOT SEEN); Platelet Estimate ADEQ
[2019-08-01 22:40] LABS: Urine Bacteria LOADED /HPF (<20); Urine Culture Reflex Order NOT NEEDED
[2019-08-01 22:41] LABS: Urine RBC <5 /HPF (NONE SEEN)
[2019-08-01] MEDS ORDERED: NA CHLORIDE 0.9% 250 ML ONE (23:43)
[2019-08-01] MEDS ORDERED: VANCOMYCIN 1 GM/VIAL ONE (23:43)
[2019-08-02] MEDS ORDERED: ONDANSETRON 4 MG/2 ML VIAL IV PRN (00:44)
[2019-08-02] MEDS ORDERED: ACETAMINOPHEN 500 MG TAB PO PRN (00:44)
[2019-08-02] MEDS ORDERED: ALBUTEROL 2.5 MG/3 ML NEB SOL NEB PRN (00:44)
[2019-08-02] MEDS ORDERED: LORAZEPAM 0.5 MG TABLET PO PRN (00:46)
[2019-08-02] MEDS ORDERED: Oxycodone HCl/Acetaminophen 1 TAB TAB PO PRN (00:46)
[2019-08-02] MEDS ORDERED: HYDRALAZINE HCL 20 MG/ML VIAL IV PRN (00:46)
--- NOTE | 2019-08-02 00:56 | P.HP ---
Certification for Inpatient With expected LOS: >2 Midnights Patient will require the following post-hospital care: Home Health Services Practitioner: I am a practitioner with admitting privileges, knowledge of patient current condition, hospital course, and medical plan of care. Services: Services provided to patient in accordance with Admission requirements found in Title 42 Section 412.3 of the Code of Federal Regulations Patient History Date of Service: 08/02/19 Reason for admission: Fever, altered mental status History of Present Illness: 88-year-old female with past medical history of HTN, dementia, history of seizure disorder , AFib on chronic anticoagulation with Eliquis,status post recent admission for fall with ruptured Dunbar's cyst and hematoma 2 months ago, baseline CKD with creatinine of 1.0-1.1 admitted today after being prompted by daughter because of increasing lethargy, worsening confusion and reported fever at home. In the ER are temperature was 103. She admits to mild cough but no sputum. Daughter works as a nurse in a prison but states recent covid testing for her was negative. On presentation patient was noted with urine showing multiple WBCs and bacteria. Chest x-ray shows no infiltrate. Her blood pressure was low with systolic in the 80s but improved with 1 L bolus to 100s systolic now. Patient mentation has improved and she is able to answer questions. She admits to intermittent abdominal cramps but denies any nausea or vomiting. She feels she would like to eat something now. She is drowsy but she is giving appropriate answers at this time. Hydrated temperature has decreased to 100.2 after a rectal Tylenol given Allergies nitrofurantoin Allergy (Verified 05/24/19 14:17) unknown Penicillins Allergy (Verified 05/24/19 14:15) UNKNOWN Home medications list reviewed: No Home Medications: Amlodipine Besylate 1 tab PO DAILY 04/08/18 Escitalopram Oxalate [Lexapro] 10 mg PO DAILY 04/08/18 Furosemide 1.5 tab PO DAILY 04/08/18 Levetiracetam [Keppra] 0.5 tab PO BEDTIME 04/08/18 Levetiracetam [Keppra] 750 mg PO DAILY 04/08/18 Losartan Potassium 50 mg PO BEDTIME 04/08/18 Tolterodine Tartrate [Detrol] 1 tab PO BID 04/08/18 allopurinoL [Allopurinol] 2 tab PO DAILY 04/08/18 atenoloL [Atenolol] 1 tab PO DAILY 04/08/18 lamoTRIgine [Lamotrigine] 1 tab PO BID 04/08/18 risperiDONE [Risperidone] 1 tab PO BEDTIME 04/08/18 Galantamine HBr [Razadyne] 4 mg PO BID 05/14/18 Carbidopa/Levodopa [Carbidopa-Levo 25-100 mg Odt] 1 each PO BID 01/12/19 Potassium Chloride [Micro-K] 10 meq PO DAILY 01/12/19 Buspirone HCl [Buspar] 10 mg PO DAILY 05/24/19 Escitalopram Oxalate [Lexapro] 10 mg PO DAILY 05/24/19 Ferrous Sulfate [Ferrous Sulfate*] 1 tab PO DAILY 05/24/19 Pantoprazole Sodium 40 mg PO DAILY 05/24/19 Apixaban [Eliquis] 2.5 mg PO BID #60 tablet 05/25/19 Doxycycline Hyclate 100 mg PO BID #14 tablet 05/26/19 - Past Medical/Surgical History Diabetic: No -: HTN -: Chronic kidney disease stage 3 -: Coronary disease with previous stent -: Parkinson's -: Chronic allergies -: Seizure disorder -: History of DVT -: A. fibrillation on chronic anti coagulation -: cardiac stents Psychosocial/ Personal History: She is a , has 14 children, she lives at home. Family takes care of her. - Family History Mother -: Diabetes Brother -: Hypertension, Diabetes - Social History Alcohol use: No CD- Drugs: No Caffeine use: No Place of Residence: Home Review of Systems 10-point ROS is otherwise unremarkable (Except as noted in HPI) Physical Examination - Vital Signs Temperature: 100.2 F Blood Pressure: 104/65 Pulse: 74 Respirations: 19 Pulse Ox (%): 98 - Physical Exam General: In no apparent distress, Other ( drowsy but is easily arousable) HEENT: Atraumatic, Normocephalic Neck: Supple, 2+ carotid pulse no bruit, JVD not distended Respiratory: Clear to auscultation bilaterally, Normal air movement Cardiovascular: No edema, Regular rate/rhythm, Normal S1 S2 Capillary refill: <2 Seconds Gastrointestinal: Normal bowel sounds, Soft and benign, Non-distended, No ascites, No tenderness Musculoskeletal: No clubbing, No swelling Integumentary: Rash(es) (Dry flaky on lower extremity ) Neurological: Normal speech, Cranial nerves 3-12 intact - Studies Laboratory Data (last 24 hrs) 08/01/19 21:23: PT 20.9 H, INR 1.79, APTT 34.8 08/01/19 21:23: WBC 21.8 H*, Hgb 9.3 L, Hct 29.3 L, Plt Count 256 08/01/19 21:23: Sodium 137, Potassium 4.0, BUN 41 H, Creatinine 3.00 H, Glucose 130 H, Total Bilirubin 0.4, AST 15, ALT < 6 L, Alkaline Phosphatase 95, Amylase 74, Lipase 35 L Microbiology Data (last 24 hrs): 08/01/19 21:15 Nasopharnyx Coronavirus COVID-19 PCR - Final 08/01/19 21:15 Throat Group A Streptococcus Rapid Screen - Final 08/01/19 21:15 Nasopharnyx Influenza Type A Antigen Screen - Final 08/01/19 21:15 Nasopharnyx Influenza Type B Antigen Screen - Final Assessment and Plan - Problems (Diagnosis) (1) Sepsis associated hypotension Current Visit: Yes Status: Acute (2) Leukocytosis Current Visit: Yes Status: Acute (3) Acute renal failure Current Visit: Yes Status: Acute (4) Chronic anticoagulation Current Visit: Yes Status: Acute (5) UTI (urinary tract infection) Onset Date: 03/11/17 Current Visit: No Status: Acute Qualifiers: Urinary tract infection type: site unspecified Hematuria presence: without hematuria Qualified Code(s): N39.0 - Urinary tract infection, site not specified (6) Chronic renal disease Current Visit: No Status: Chronic Qualifiers: Chronic kidney disease stage: stage 2 (mild) Qualified Code(s): N18.2 - Chronic kidney disease, stage 2 (mild) - Advance Directives Does patient have a Living Will: Yes Does patient have a Durable POA for Healthcare: Yes Physician Review: Patient Assessed, Agree with Above Assessment and Plan Physician Review Additional Text: UTI with sepsis-improving low blood pressure with IVF Continue gentle IVF with normal saline at 75 cc/hour. P Week repeat bolus IV fluid if recurrent low blood pressure. Start empirical antibiotics with Rocephin Follow urine and blood culture Continue anti-pyretic with Tylenol as needed -follow leukocytosis trend Hypertension-improving Continue to hold BP meds-atenolol/losartan/amlodipine Continue IVF Acute renal failure-likely due to pre renal azotemia Follow with gentle IVF Will consult Nephrology - obtain random urine creatinine/sodium if not improving in a.m. -we hold losartan for now Chronic anticoagulation-resume Eliquis Metabolic encephalopathy-improving with improving blood pressure Hold sedative medications for now Weakness-patient admits to history of non ambulate tree status at baseline -if resolved sepsis will consider PT/OT planning prior to discharge History of recent sacral decubitus ulcers noted DVT prophylaxis-on Eliquis Advanced directive-we keep full code for now - will need to rediscuss with family Time Spent Managing Pts Care (In Minutes): 65
[2019-08-02] MEDS ORDERED: D5 0.9 NS 1,000 ML IV SCH (01:00)
[2019-08-02] MEDS ORDERED: NA CHLORIDE 0.9% 1,000 ML ONE (03:12)
[2019-08-02] MEDS: MIDODRINE HCL 5 MG TABLET PO SCH ×4 (04:44→20:49)
--- NOTE | 2019-08-02 06:51 | P.PN ---
Date of Service: 08/02/19 Patient seen again, developed worsening shortness of breath with mild upper respiratory wheezes. Her blood pressure trended down to the 80s systolic with reduce IVF. Shortness of breath improved with nasal cannula O2 use. New onset shortness of breath Was felt to be due to fluid IV fluid was held. She was started on Midodrine for low blood pressure and blood pressure has improved to 95/65 now after 1 dose. - We will obtain repeat labs this morning. -continue midodrine, if recurrent hypotension ,will transferred to the ICU with need for IV pressors
[2019-08-02 07:23] LABS: Basophils % 0.3 % (0-1.3); Hematocrit 29.1 % (36.0-45.0); Lymphocytes % 6.1 % (15.3-44.8); RBC Red Blood Cell Count 2.94 M/uL (3.86-4.86)
[2019-08-02 07:38] LABS: Potassium 3.6 mmol/L (3.5-5.1)
[2019-08-02] MEDS: Levofloxacin500mg IV 500 MG/100 ML BAG IV SCH (08:03)
[2019-08-02] MEDS: FAMOTIDINE 20 MG TAB PO SCH (08:03)
[2019-08-02] MEDS: APIXABAN 2.5 MG TABLET PO SCH ×2 (08:03→20:48)
[2019-08-02] MEDS: ALBUTEROL 2.5 MG/3 ML NEB SOL NEB SCH ×3 (14:40→23:05)
[2019-08-02] MEDS ORDERED: METHYLPREDNISOLONE 125 MG INJ IV SCH (14:59)
--- NOTE | 2019-08-02 15:24 | RAD REPORT ---
EXAM DESCRIPTION: RAD - Chest Single View - 08/02/2019 3:16 pm CLINICAL HISTORY: SOB Chest pain. COMPARISON: Chest Single View dated 08/01/2019; Chest Single View dated 05/14/2018; Chest Pa And Lat (2 Views) dated 05/03/2018; Chest Single View dated 04/07/2018 FINDINGS: Portable technique limits examination quality. The lungs are grossly clear. The heart is mildly enlarged with a tortuous thoracic aorta. No displace d fractures. IMPRESSION: No acute intrathoracic process suspected.
[2019-08-02 15:29] LABS: Arterial Blood Carboxyhemoglob 0.9 % (0-1.5); Blood Gas Oxyhemoglobin 94.8 % (94-97); Blood O2 Saturation 96.5 % (92-98.5)
[2019-08-02] MEDS: levETIRAcetam 750 MG in NA CHLORIDE 0.9% 100 ML IV SCH ×3 (15:30→20:48)
[2019-08-02] MEDS ORDERED: FUROSEMIDE 40 MG/4 ML VIAL IV ONE (16:00)
[2019-08-02] MEDS ORDERED: ALBUMIN HUMAN 25% 12.5 GM, FUROSEMIDE 100 MG in NA CHLORIDE 0.9% 40 ML IV SCH (16:00)
[2019-08-02] MEDS: METHYLPREDNISOLONE 125 MG INJ IV SCH ×2 (18:09→23:34)
--- NOTE | 2019-08-02 18:19 | RAD REPORT ---
EXAM DESCRIPTION: CT - Head Brain Wo Cont - 08/02/2019 2:51 am CLINICAL HISTORY: 88 years Female CONFUSED COMPARISON: MRI brain dated May 17, 2018 TECHNIQUE: Contiguous axial images of the brain were obtained without the administration of intraven ous contrast.This exam was performed according to our departmental dose-optimization program which in cludes use of Automated Exposure Control, adjustment of the mA and/or kV according to patient size an d/or use of iterative reconstruction technique. DLP: 819 mGy*cm FINDINGS: Brain: No acute intracranial hemorrhage. No extra-axial collection. No mass effect or mono iation. Prominence of the sulci and cisterns. Confluent periventricular and subcortical white matte r hypodensity is noted. Intracranial vascular calcifications. Ventricles: Prominence of the ventricular system without hydrocephalus.. Globes and orbits: No acute abnormality. Bones: No acute osseous finding Paranasal sinuses: No air-fluid level. Mastoid air cells: Well pneumatized. Soft tissues: Within normal limits IMPRESSION: No acute intracranial hemorrhage, hydrocephalus or herniation. Cerebral volume loss and advanced chronic small vessel ischemic changes. If persistent clinical sky rn for acute ischemia, consider MRI brain without contrast for further evaluation. Electronically signed by: Jose Eduardo Connor DO 08/01/2019 11:34 PM CDT Due to temporary technical issues with the PACS/Fluency reporting system, reports are being signed by the in house radiologist without review as a courtesy to ensure prompt reporting. The interpreting r adiologist is fully responsible for the content of the report.
[2019-08-02] MEDS: BUSPIRONE HCL 5 MG TABLET PO SCH (20:48)
[2019-08-02] MEDS: LOSARTAN POTASSIUM 50 MG TABLET PO SCH (20:48)
[2019-08-02] MEDS: RISPERIDONE 0.25 MG TABLET PO SCH (20:49)
[2019-08-02] MEDS: lamoTRIgine 150 MG TAB PO SCH (20:49)
[2019-08-02] MEDS: GALANTAMINE 4 MG TAB PO SCH (20:49)
[2019-08-02] MEDS: LEVETIRACETAM PO SCH (20:49)
[2019-08-02] MEDS: CARBIDOPA/LEVODOPA 25/100 TAB PO SCH (20:49)
[2019-08-02] MEDS ORDERED: TOLTERODINE TARTRATE PO SCH (21:00)
[2019-08-02] MEDS ORDERED: HOME MED 1 EA UNK (Buspirone Hcl [Buspar] 10 MG) PO SCH (21:00)
[2019-08-02] MEDS ORDERED: CEFTRIAXONE/SWI 1gm 1 GM/10 ML SYR IV SCH (21:00)
[2019-08-02] MEDS ORDERED: HOME MED 1 EA UNK (Risperidone [Risperidone] 0.5 MG) PO SCH (21:00)
[2019-08-03] MEDS: ALBUTEROL 2.5 MG/3 ML NEB SOL NEB SCH ×3 (03:20→12:00)
--- NOTE | 2019-08-03 06:12 | EKG ---
Test Date: 2019-08-01 Test Time: 21:21:49 Engineer Second Assistant: CHRISTOPHER MEASUREMENT RESULTS: Intervals: Rate: 83 WY: 166 QRSD: 86 QT: 378 QTc: 444 [place]: P: -29 WY: 166 QRS: -20 T: 4 INTERPRETIVE STATEMENTS: Normal sinus rhythm Possible Lateral infarct, age undetermined Abnormal ECG Compared to ECG 05/14/2018 11:13:15 Myocardial infarct finding now present Incomplete right bundle-branch block no longer present T-wave abnormality no longer present Prolonged QT interval no longer present Electronically Signed On 08-03-19 06:11:16 CDT by Soham Fitzgerald
[2019-08-03 06:31] LABS: Bilirubin Total 0.3 mg/dL (0.2-1.0); Protein, Total 6.5 g/dL (6.4-8.2)
[2019-08-03] MEDS: METHYLPREDNISOLONE 125 MG INJ IV SCH ×2 (06:39→12:22)
[2019-08-03 06:45] LABS: Protime INR 1.61
[2019-08-03 07:08] LABS: Absolute Lymphocytes (CBC) 0.7 K/uL (0.7-4.9); Basophils % 0.2 % (0-1.3); Hematocrit 25.6 % (36.0-45.0); Lymphocytes % 3.7 % (15.3-44.8); RBC Red Blood Cell Count 2.58 M/uL (3.86-4.86)
[2019-08-03] MEDS ORDERED: POTASSIUM CL SA 10 MEQ TAB PO ONE (07:58)
[2019-08-03] MEDS: ESCITALOPRAM 20 MG TAB PO SCH (08:34)
[2019-08-03] MEDS: FAMOTIDINE 20 MG TAB PO SCH (08:35)
[2019-08-03] MEDS: allopurinoL 100 MG TAB PO SCH (08:35)
[2019-08-03] MEDS: MIDODRINE HCL 5 MG TABLET PO SCH ×3 (08:35→21:42)
[2019-08-03] MEDS: APIXABAN 2.5 MG TABLET PO SCH ×2 (08:36→21:43)
[2019-08-03] MEDS: FERROUS SULFATE 325 MG TAB PO SCH (08:36)
[2019-08-03] MEDS: POTASSIUM CL SA 10 MEQ TAB PO SCH (08:37)
[2019-08-03] MEDS ORDERED: FUROSEMIDE 40 MG TABLET PO SCH (09:00)
[2019-08-03] MEDS ORDERED: HOME MED 1 EA UNK (Potassium Chloride [Micro-K] 10 MEQ) PO SCH (09:00)
[2019-08-03] MEDS ORDERED: HOME MED 1 EA UNK (Escitalopram Oxalate [Lexapro] 10 MG) PO SCH (09:00)
[2019-08-03] MEDS ORDERED: PANTOPRAZOLE 40MG TABLET PO SCH (09:00)
[2019-08-03] MEDS: CARBIDOPA/LEVODOPA 25/100 TAB PO SCH ×2 (09:46→21:42)
[2019-08-03] MEDS: GALANTAMINE 4 MG TAB PO SCH ×2 (09:46→21:41)
[2019-08-03] MEDS: lamoTRIgine 150 MG TAB PO SCH ×2 (09:46→21:41)
[2019-08-03] MEDS: BUSPIRONE HCL 5 MG TABLET PO SCH ×2 (09:46→21:41)
[2019-08-03] MEDS: levETIRAcetam 750 MG in NA CHLORIDE 0.9% 100 ML IV SCH ×2 (09:47→22:07)
--- NOTE | 2019-08-03 11:58 | PN ---
Date of Progress Note: 08/03/2019 Patient seen and examined. Chart reviewed and case discussed with RN. Code status full. Patient has been doing well. No seizure activity overnight. Blood pressure improving. Did have some difficulty breathing yesterday with wheezing but chest x-ray was clear. Medications: List reviewed. Physical Examination: Vital Signs: Temperature 97.4, heart rate 69, blood pressure 111/59, respirations 14, O2 100% on room air. General: Awake, alert, oriented x3. Elderly female, not in any acute distress. CV: S1, S2. Peripheral pulses present. Respiratory: Moving air well bilaterally. No wheezing or stridor. Gastrointestinal: Abdomen is soft, nontender, nondistended. Positive bowel sounds. Extremities: No clubbing, cyanosis. Trace pedal edema. Neuro: Patient has weakness bilateral lower extremities, which is chronic. Skin: Patient has stage II sacral decubitus ulcer. Laboratory Data: Sodium 142, potassium 3, chloride 109, CO2 of 22, BUN 46, creatinine 2.71, glucose 159, calcium 8.1. WBC is 19.7, H and H 8.1/25.6, platelets 201, neutrophils 93%. Urine culture growing out 4+ gram-negative rods. Blood cultures, no growth to date. COVID screen is negative. Chest x- ray shows no acute intrathoracic process. Assessment: 88-year-old female with: 1. Sepsis with septic shock, improving likely secondary to urinary tract infection. Continue antibiotics, renally dosed. Procalcitonin is still elevated. White blood cell count elevated. 2. Acute cystitis without hematuria secondary to gram-negative rods. ID and sensitivity are pending. We will continue with Levaquin, renally dosed. Follow up on culture results. 3. Acute kidney injury. Creatinine is somewhat better. Nephrology has been consulted. Patient still has low urine volume, may be due to sepsis. Does have chronic kidney disease stage 3. 4. Atrial fibrillation, controlled ventricular rate, on chronic anticoagulation. Continue with rate control. 5. Acute metabolic encephalopathy, improved likely secondary to hypotension. 6. Generalized weakness. Patient is nonambulatory at baseline, uses a wheelchair. 7. History of seizure disorder. Keppra has been resumed. 8. Deep vein thrombosis prophylaxis. Patient is on Eliquis, renally dosed. Plan: We will step down from ICU. We will touch base with Nephrology. SA/ALEXX Voice ID: [id number] Report ID: [id number] [place]
--- NOTE | 2019-08-03 12:31 | P.CNS ---
Date of Consult: 08/03/19 Reason for Consult: Respiratory distress Chief Complaint: Respiratory distress History of Present Illness: Patient is 88 years of age was transferred from the floor with respiratory distress she was moaning as some grunting sounds patient improved fairly quickly she has had a history of seizures patient is very alert oriented responsive cooperative no prior history of respiratory complaints patient is on seizure medication has had seizures at home chronic renal failure a Allergies nitrofurantoin Allergy (Verified 05/24/19 14:17) unknown Penicillins Allergy (Verified 05/24/19 14:15) UNKNOWN Home Medications: Furosemide 1.5 tab PO DAILY 04/08/18 Levetiracetam [Keppra] 0.5 tab PO BEDTIME 04/08/18 Levetiracetam [Keppra] 750 mg PO DAILY 04/08/18 Losartan Potassium 50 mg PO BEDTIME 04/08/18 Tolterodine Tartrate [Detrol] 1 tab PO BID 04/08/18 allopurinoL [Allopurinol] 2 tab PO DAILY 04/08/18 atenoloL [Atenolol] 50 mg PO DAILY 04/08/18 lamoTRIgine [Lamotrigine] 1 tab PO BID 04/08/18 risperiDONE [Risperidone] 0.5 mg PO BEDTIME 04/08/18 Galantamine HBr [Razadyne] 4 mg PO BID 05/14/18 Potassium Chloride [Micro-K] 10 meq PO DAILY 01/12/19 Buspirone HCl [Buspar] 10 mg PO BID 05/24/19 Escitalopram Oxalate [Lexapro] 10 mg PO DAILY 05/24/19 Ferrous Sulfate [Ferrous Sulfate*] 1 tab PO DAILY 05/24/19 Pantoprazole Sodium 40 mg PO DAILY 05/24/19 Apixaban [Eliquis] 2.5 mg PO BID #60 tablet 05/25/19 Carbidopa/Levodopa 25-100 [Sinemet 25-100*] 1 tab PO BID 08/02/19 - Past Medical/Surgical History Diabetic: No -: HTN -: Chronic kidney disease stage 3 -: Coronary disease with previous stent -: Parkinson's -: Chronic allergies -: Seizure disorder -: History of DVT -: A. fibrillation on chronic anti coagulation -: cardiac stents -: castellanos cyst Psychosocial/ Personal History: She is a , has 14 children, she lives at home. Family takes care of her. - Family History Mother Medical History: Diabetes Brother Medical History: Hypertension, Diabetes - Social History Smoking Status: Unknown if ever smoked Alcohol use: No CD- Drugs: No Caffeine use: Yes Place of Residence: Home Review of Systems 10-point ROS is otherwise unremarkable General: Weakness Physical Examination Temp Pulse Resp BP Pulse Ox 97.6 F 96 H 17 103/65 98 08/03/19 08:00 08/03/19 09:00 08/03/19 09:00 08/03/19 09:00 08/03/19 08:00 General: Alert, In no apparent distress, Oriented x3 HEENT: Atraumatic Neck: Supple Respiratory: Clear to auscultation bilaterally Cardiovascular: No edema, Regular rate/rhythm Gastrointestinal: Normal bowel sounds, Soft and benign - Problems (1) Respiratory distress Current Visit: Yes Status: Acute Plan: Patient is 88 years of age transferred to to the ICU with respiratory distress and may be having some seizures acute on chronic renal failure patient is bacteremic urine is positive for gram-negative rods white count is declining patient is on IV Levaquin chest x-rays clear vital signs stable patient has an essential tremor history of Parkinson's (2) Renal failure (ARF), acute on chronic Current Visit: Yes Status: Acute Plan: Patient has acute on chronic renal failure hold on diuretics for now all of some IV fluid Qualifiers: Acute renal failure type: unspecified Chronic kidney disease stage: stage 3 (moderate) Qualified Code(s): N17.9 - Acute kidney failure, unspecified; N18.3 - Chronic kidney disease, stage 3 (moderate)
[2019-08-03] MEDS: NA CHLORIDE 0.9% 1,000 ML IV SCH (13:55)
--- NOTE | 2019-08-03 14:48 | RAD REPORT ---
EXAM DESCRIPTION: US - Renal Ultrasound-Complete - 08/03/2019 2:33 pm CLINICAL HISTORY: Renal failure COMPARISON: None FINDINGS: The right kidney measures 8.2 x 4.2 x 3.9 cm. The left kidney measures 10.4 x 5.8 x 4.1 c m. Cortical thickness is normal in each kidney. There is increased echogenicity in the right renal pa renchyma. Pelvis and calyx dilatation noted on the left. A nonobstructing 10 mm calyx or pyramid calc ifications present on the left. The left UPJ was not sufficiently visualized to evaluate for any poss ible stone. A 2.3 centimeter cyst present upper pole of the right kidney. Bladder is too contracted allow assessment. IMPRESSION: Left hydronephrosis is evident with suboptimal visualization. UPJ and ureter were not ad equately visualized for possible stone detection. Smaller more echogenic right kidney indicating medical renal disease. No right-sided hydronephrosis.
--- NOTE | 2019-08-03 20:44 | P.CNS ---
Date of Consult: 08/01/19 Reason for Consult: COSME on CKD Requesting Physician: Virginia Lu Chief Complaint: Respiratory distress History of Present Illness: Pt is an 88 y/o female with past medical hx of Afib on eliquis, hypertension, CKD with a known baseline of 1.0 to 1.14, who presented with progressive lethargy, fatigue, poor p.o. intake per daughter. History is limited because patient is altered. On arrival, patient was noted to be hypotensive, possibly septic and is currently being treated with antibiotics. She was initially maintained in ICU, got some fluids but became short of breath and was then discontinued. She was placed on midodrine which maintain blood pressures between 100 to 120s over 70s to 150s. subsequently once more stable, fluids was resumed and is currently infusing Renal ultrasound was obtained, and results pending.On arrival, patient's creatinine was noted to be high 2s with his gradually down trended to lower 2s. Unclear of patient's baseline. Renal has been consulted due to the elevated creatinine and COSME which has gradually been improving. Allergies nitrofurantoin Allergy (Verified 05/24/19 14:17) unknown Penicillins Allergy (Verified 05/24/19 14:15) UNKNOWN Home medications list reviewed: Yes Home Medications: Furosemide 1.5 tab PO DAILY 04/08/18 Levetiracetam [Keppra] 0.5 tab PO BEDTIME 04/08/18 Levetiracetam [Keppra] 750 mg PO DAILY 04/08/18 Losartan Potassium 50 mg PO BEDTIME 04/08/18 Tolterodine Tartrate [Detrol] 1 tab PO BID 04/08/18 allopurinoL [Allopurinol] 2 tab PO DAILY 04/08/18 atenoloL [Atenolol] 50 mg PO DAILY 04/08/18 lamoTRIgine [Lamotrigine] 1 tab PO BID 04/08/18 risperiDONE [Risperidone] 0.5 mg PO BEDTIME 04/08/18 Galantamine HBr [Razadyne] 4 mg PO BID 05/14/18 Potassium Chloride [Micro-K] 10 meq PO DAILY 01/12/19 Buspirone HCl [Buspar] 10 mg PO BID 05/24/19 Escitalopram Oxalate [Lexapro] 10 mg PO DAILY 05/24/19 Ferrous Sulfate [Ferrous Sulfate*] 1 tab PO DAILY 05/24/19 Pantoprazole Sodium 40 mg PO DAILY 05/24/19 Apixaban [Eliquis] 2.5 mg PO BID #60 tablet 05/25/19 Carbidopa/Levodopa 25-100 [Sinemet 25-100*] 1 tab PO BID 08/02/19 - Past Medical/Surgical History Diabetic: No Past Medical History: Reviewed- Non-Contributory -: HTN -: Chronic kidney disease stage 3 -: Coronary disease with previous stent -: Parkinson's -: Chronic allergies -: Seizure disorder -: History of DVT -: A. fibrillation on chronic anti coagulation -: cardiac stents -: castellanos cyst Psychosocial/ Personal History: She is a , has 14 children, she lives at home. Family takes care of her. - Family History Mother Medical History: Diabetes Brother Medical History: Hypertension, Diabetes - Social History Smoking Status: Unknown if ever smoked Alcohol use: No CD- Drugs: No Caffeine use: Yes Place of Residence: Home Review of Systems unable to obtain due to altered mentation Physical Examination Temp Pulse Resp BP Pulse Ox 97.0 F 76 20 114/57 L 98 08/03/19 16:00 08/03/19 16:00 08/03/19 16:00 08/03/19 16:08/03/19 16:00 General: Alert, Demented HEENT: Atraumatic, Normocephalic, PERRLA Neck: Supple, No Thyromegaly Respiratory: Diminished Cardiovascular: No edema Gastrointestinal: Normal bowel sounds, Soft and benign Musculoskeletal: No swelling, No contractures, No tenderness, No warmth Integumentary: Rash(es), No ulcers Neurological: Dementia Urinary: Dialysis catheter - Problems (1) Renal failure (ARF), acute on chronic Current Visit: Yes Status: Acute Plan: Most likely acute on chronic kidney failure Acute portion 2/2 ATN, obstructive uropathy Renal ultrasound suggestive of renal disease, also notable mild obstructive uropathy from left hydronephrosis Discussed with primary team urology consulted Continue gentle hydration with IVF @75CC/H Maintain warren for strict i/os and obstructive uropathy Avoid nephrotoxins, nsaids, CT contrasted studies, caution with acei and arb Would hold lasix at this time. Qualifiers: Acute renal failure type: with other specified pathological lesion Chronic kidney disease stage: stage 3 (moderate) Qualified Code(s): N17.8 - Other acute kidney failure; N18.3 - Chronic kidney disease, stage 3 (moderate) (2) Hypokalemia Onset Date: 04/08/18 Current Visit: No Status: Acute Plan: Repleted with 20meq of Kcl. Cautious repletion given compromised kidney function (3) UTI (urinary tract infection) Onset Date: 04/08/18 Current Visit: No Status: Acute Qualifiers: Urinary tract infection type: acute cystitis Hematuria presence: without hematuria Qualified Code(s): N30.00 - Acute cystitis without hematuria Conclusions/Impression: Management per primary team Antibiotic adeqautely dosed
[2019-08-03] MEDS: LEVETIRACETAM PO SCH (21:00)
[2019-08-03] MEDS: RISPERIDONE 0.25 MG TABLET PO SCH (21:42)
[2019-08-04] MEDS: NA CHLORIDE 0.9% 1,000 ML IV SCH ×2 (02:35→15:14)
[2019-08-04 05:01] LABS: Absolute Lymphocytes (CBC) 0.9 K/uL (0.7-4.9); Basophils % 0.3 % (0-1.3); Hematocrit 26.2 % (36.0-45.0); Lymphocytes % 5.1 % (15.3-44.8); MPV 9.1 fL (7.6-11.3); RBC Red Blood Cell Count 2.67 M/uL (3.86-4.86)
[2019-08-04 05:20] LABS: AST/SGOT 24 U/L (15-37); Albumin 2.1 g/dL (3.4-5.0); Alkaline Phosphatase 120 U/L (45-117); BUN Blood Urea Nitrogen 61 mg/dL (7-18); Bicarbonate 24 mmol/L (21-32); Bilirubin Total 0.1 mg/dL (0.2-1.0); Glucose Level 148 mg/dL (74-106); Potassium 3.2 mmol/L (3.5-5.1); Protein, Total 6.6 g/dL (6.4-8.2); Sodium Level 139 mmol/L (136-145)
[2019-08-04 05:22] LABS: ALT/SGPT < 6 U/L (12-78)
[2019-08-04] MEDS: Levofloxacin500mg IV 500 MG/100 ML BAG IV SCH (06:22)
[2019-08-04] MEDS: POTASSIUM CL SA 10 MEQ TAB PO SCH (09:00)
[2019-08-04] MEDS: levETIRAcetam 750 MG in NA CHLORIDE 0.9% 100 ML IV SCH ×2 (09:43→21:28)
[2019-08-04] MEDS: BUSPIRONE HCL 5 MG TABLET PO SCH ×2 (09:47→21:28)
[2019-08-04] MEDS: lamoTRIgine 150 MG TAB PO SCH ×2 (09:47→21:27)
[2019-08-04] MEDS: GALANTAMINE 4 MG TAB PO SCH ×2 (09:47→21:28)
[2019-08-04] MEDS: FERROUS SULFATE 325 MG TAB PO SCH (09:48)
[2019-08-04] MEDS: APIXABAN 2.5 MG TABLET PO SCH ×2 (09:48→21:27)
[2019-08-04] MEDS: FAMOTIDINE 20 MG TAB PO SCH (09:48)
[2019-08-04] MEDS: allopurinoL 100 MG TAB PO SCH (09:48)
[2019-08-04] MEDS: POTASSIUM CL SA 10 MEQ TAB PO ONE ×2 (09:49→09:51)
[2019-08-04] MEDS: CARBIDOPA/LEVODOPA 25/100 TAB PO SCH ×2 (09:49→21:27)
[2019-08-04] MEDS: ESCITALOPRAM 20 MG TAB PO SCH (09:50)
[2019-08-04] MEDS: MIDODRINE HCL 5 MG TABLET PO SCH ×3 (09:50→21:27)
[2019-08-04] MEDS: JUVEN PACKET PO SCH ×2 (09:52→21:29)
[2019-08-04] MEDS: CEFTRIAXONE/SWI 1gm 1 GM/10 ML SYR IV SCH ×2 (09:58→21:26)
[2019-08-04] MEDS ORDERED: POTASSIUM CL SA 10 MEQ TAB PO ONE (10:37)
--- NOTE | 2019-08-04 10:56 | RAD REPORT ---
EXAM DESCRIPTION: CT - Stone Protocol - 08/04/2019 10:41 am CLINICAL HISTORY: Abdominal pain. COMPARISON: August 03, 2019 ultrasound TECHNIQUE: Computed axial tomography of the abdomen pelvis was obtained without oral or IV contrast. Lack of IV and oral contrast limits evaluation of solid organs, bowel, and vessels. Coronal reformat hitesh images were obtained and reviewed. All CT scans are performed using dose optimization technique as appropriate and may include automated exposure control or mA/KV adjustment according to patient size. FINDINGS: Bilateral renal calculi. 15 millimeter calculus left UPJ Hounsfield unit 630. Moderate lef t hydronephrosis. Small renal cysts. Gallstones. Gallbladder wall is not thickened. The liver, spleen, pancreas and adrenals appear grossly normal There is no evidence of diverticulitis. The appendix appears normal The rectum is distended with stool. Rectum measures 8 centimeters. A Huntley catheter is present within the bladder. Small umbilical hernia IMPRESSION: 15 millimeter calculus left UPJ resulting in moderate left hydronephrosis
--- NOTE | 2019-08-04 11:16 | RAD REPORT ---
EXAM DESCRIPTION: RAD - Barium Swallow Modified - 08/04/2019 11:08 am CLINICAL HISTORY: Coughing, choking, dysphagia FINDINGS: No aspiration. No supraglottic penetration. Pharyngeal Residue: Vallecular: trace w/ thin, cleared on subsequent swallow Other: 2 sec swallow delay, prominent cricopharyngeal Fluoroscopy time 2 minutes. Fifteen fluoroscopic spot series obtained
--- NOTE | 2019-08-04 11:26 | P.PN ---
Subjective Date of Service: 08/04/19 Chief Complaint: Respiratory distress Subjective: Doing well Pt seen and examined. Daughter by bedside. She feels like her mother is improved. She still feels liek he rmother is having difficulty ingeting foods probably because of the consistency. She eats a pureed diet at home. Otherwise no acute events overnight Review of Systems Unremarkable (Still has decreased po intake) Physical Examination - Vital Signs Temperature: 97.3 F Blood Pressure: 112/54 Pulse: 71 Respirations: 20 Pulse Ox (%): 99 - Physical Exam General: In no apparent distress HEENT: Atraumatic, Normocephalic, PERRLA Neck: Supple Respiratory: Diminished Cardiovascular: No edema Gastrointestinal: Normal bowel sounds, Soft and benign Musculoskeletal: No swelling, No tenderness, No warmth Integumentary: No rashes Neurological: Dementia Urinary: Warren catheter - Studies Microbiology Data (last 24 hrs): 08/01/19 21:15 Throat Culture & Sensitivity - Final NORMAL UPPER RESPIRATORY TEGAN GROWN. 08/01/19 22:02 Catheterized Urine Lester Count - Final >100,000 CFU/ML. 08/01/19 22:02 Catheterized Urine - Final Proteus Mirabilis 08/01/19 21:58 Blood - Blood Blood Culture Gram Stain - Final 08/01/19 21:58 Blood - Blood Anaerobic Blood Culture - Final 08/01/19 21:40 Blood - Blood Aerobic Blood Culture - Final Proteus Mirabilis 08/01/19 21:40 Blood - Blood Blood Culture Gram Stain - Final 08/01/19 21:40 Blood - Blood Anaerobic Blood Culture - Final Proteus Mirabilis 08/01/19 21:40 Blood - Blood Gram Stain - Final Assessment & Plan - Problems (Diagnosis) (1) Renal failure (ARF), acute on chronic Current Visit: Yes Status: Acute Plan: Most likely acute on chronic kidney failure; Improving Acute portion 2/2 ATN, obstructive uropathy Renal ultrasound suggestive of renal disease, also notable mild obstructive uropathy from left hydronephrosis Urology consult pending Continue gentle hydration with IVF @75CC/H Maintain warren for strict i/os and obstructive uropathy. Bladder scan negative fro retention in bladder Avoid nephrotoxins, nsaids, CT contrasted studies, caution with acei and arb Would continue to hold lasix at this time. Qualifiers: Acute renal failure type: with other specified pathological lesion Chronic kidney disease stage: stage 3 (moderate) Qualified Code(s): N17.8 - Other acute kidney failure; N18.3 - Chronic kidney disease, stage 3 (moderate) (2) Hypokalemia Onset Date: 04/08/18 Current Visit: No Status: Acute Plan: Repleted with 20meq of Kcl. Cautious repletion given compromised kidney function (3) UTI (urinary tract infection) Onset Date: 04/08/18 Current Visit: No Status: Acute Qualifiers: Urinary tract infection type: acute cystitis Hematuria presence: without hematuria Qualified Code(s): N30.00 - Acute cystitis without hematuria Physician Review: Patient Assessed, Agree with Above Assessment and Plan
--- NOTE | 2019-08-04 13:59 | PN ---
Date of Progress Note: 08/04/2019 Subjective: Patient seen and examined, chart reviewed, and case discussed with RN and speech therapist. Patient having some confusion today. Also has had some difficulty swallowing, therefore modified barium swallow study was recommended by speech therapist. I did speak with Dr. Soto, touch up edger, saw the patient yesterday. Medications: List reviewed. Physical Examination: Vital Signs: Temperature 96, heart rate 65, blood pressure 119/58, respirations 18, O2 99% on room air. General: Awake, alert, oriented x3. Somewhat confused elderly female. CV: S1, S2. Peripheral pulses present. Regular rate and rhythm. Respiratory: Moving air well bilaterally. No wheezing or stridor. Gastrointestinal: Abdomen is soft, nontender, nondistended. Positive bowel sounds. Extremities: No clubbing, cyanosis, or edema. Neurologic: Nonfocal. Cranial nerves 2 through 12 intact grossly. Moves all 4 extremities. Speech is normal. Laboratory Data: Sodium 139, potassium 3.2, chloride 110, CO2 of 24, BUN 61, creatinine 2.35, glucose 148, calcium 8.7, albumin 2.1. WBC 17.6, H and H 8.2 and 26.2, platelets 215, neutrophils 91%. Urine culture growing out Proteus, resistant to Levaquin. Blood culture is also growing out Proteus, also resistant to fluoroquinolones. Assessment: An 88-year-old female with: 1. Sepsis with shock, improving, secondary to urinary tract infection and bacteremia. We will adjust antibiotics. Levaquin is resistant. Therefore, we will switch over to Rocephin. Patient's white blood cell count trending down slowly. 2. Acute cystitis without hematuria secondary to Proteus. Culture results and sensitivities reviewed. 3. Bacteremia secondary to Proteus. Likely source is the cystitis. We will adjust IV antibiotics. We will consult Infectious Disease. 4. Acute kidney injury. Creatinine slightly better. Appreciate Nephrology input. We will continue to monitor urine output closely. 5. Atrial fibrillation with controlled ventricular rate, on chronic anticoagulation. Continue rate control. 6. Acute metabolic encephalopathy, likely secondary to bacteremia, hypotension, and kidney dysfunction. Somewhat confused this morning. 7. Generalized weakness. Patient is nonambulatory at baseline, uses wheelchair. We will continue with PT. 8. History of seizure disorder. Continue Keppra. 9. Deep venous thrombosis prophylaxis with Eliquis, renally dosed. Plan: Continue monitoring closely. IV antibiotics had been adjusted. Likely discharge in the next 48-72 hours depending on clinical improvement. ADDENDUM: Case discussed with touch up edger Dr. Soto and urologist Dr. Bustillos. Patient seems to have decreased urinary output. Renal ultrasound showing hydronephrosis. CT stone protocol was ordered and showed a 1.5 mm stone on the left. Patient will need to go for surgery likely stent placement by neurology for decompression. Patient unfortunately ate lunch therefore will not be able to go for procedure until tomorrow. Patient will be NPO after midnight. Assessment and plan -Hydronephrosis secondary to urolithiasis. Huntley catheter in place. Continue IV fluids. Urology on board. Surgery in a.m. -urolithiasis SA/MODL Voice ID: [id number] Report ID: [id number] MTDD
--- NOTE | 2019-08-04 14:55 | P.CNS ---
Date of Consult: 08/04/19 Subjective: Patient is an 88 year old female who presents with AMS, lethargy and fever. Patient has history of dementia. Patients daughter lives with her and helps take care of her. Patient found to have UTI and bacteremia which I have been consulted for. Patient with history of dementia therefore is a poor historian. Medical history obtained from the medical records. Past medical/surgical history: HTN, CKD, CAD, Parkinsons, Seizure disorder, DVT, A.fib Family history: Mother with diabetes. Brother with HTN and diabetes Allergies: Nitrofurantoin, PCN Active Medications Acetaminophen (Tylenol -Extra Strength) 500 mg PO Q6H PRN PRN Reason: TEMP > 100' F Stop: 09/01/19 00:45 Allopurinol (Zyloprim) 200 mg PO DAILY [facility] Stop: 09/02/19 09:01 Last Admin: 08/04/19 09:48 Dose: 200 mg Documented by: Apixaban (Eliquis) 2.5 mg PO BID [facility] Stop: 09/01/19 09:01 Last Admin: 08/04/19 09:48 Dose: 2.5 mg Documented by: Atenolol (Tenormin) 50 mg PO DAILY [facility] Stop: 09/02/19 09:01 Buspirone HCl (Buspar) 10 mg PO BID [facility] Stop: 09/01/19 21:01 Last Admin: 08/04/19 09:47 Dose: 10 mg Documented by: Carbidopa/Levodopa (Sinemet 25-100) 1 tab PO BID [facility] Stop: 09/01/19 21:01 Last Admin: 08/04/19 09:49 Dose: 1 tab Documented by: Escitalopram Oxalate (Lexapro) 10 mg PO DAILY [facility] Stop: 09/02/19 09:01 Last Admin: 08/04/19 09:50 Dose: 10 mg Documented by: Famotidine (Pepcid) 20 mg PO DAILY [facility]; Protocol Stop: 09/01/19 09:01 Last Admin: 08/04/19 09:48 Dose: 20 mg Documented by: Ferrous Sulfate (Feosol) 325 mg PO DAILY [facility] Stop: 09/02/19 09:01 Last Admin: 08/04/19 09:48 Dose: 325 mg Documented by: Galantamine Hydrobromide (Razadyne) 4 mg PO BID [facility] Stop: 09/01/19 21:01 Last Admin: 08/04/19 09:47 Dose: 4 mg Documented by: Home Med (Levetiracetam [Keppra]) 0.5 tab PO BEDTIME [facility] Stop: 09/01/19 21:01 Last Admin: 08/03/19 21:00 Dose: Not Given Documented by: Home Med (Tolterodine Tartrate [Detrol]) 1 tab PO BID [facility] Stop: 09/01/19 21:01 Hydralazine HCl (Apresoline) 10 mg IV Q6HP PRN PRN Reason: Titrate to SBP (MUST DEFINE) Stop: 09/01/19 00:47 Levetiracetam 750 mg/ Sodium (Chloride) 107.5 mls @ 430 mls/hr IV BID [facility] Stop: 09/01/19 15:31 Last Admin: 08/04/19 09:43 Dose: 107.5 mls Documented by: Sodium Chloride (Ns 1000 Ml Ivbag) 1,000 mls @ 75 mls/hr IV .[id number] [facility] Stop: 09/02/19 13:01 Last Admin: 08/04/19 02:35 Dose: 1,000 mls Documented by: Ceftriaxone Sodium/Sodium Chloride (Rocephin 1 Gm/10 Ml Swi Ivp) 1 gm in 10 mls @ 600 mls/hr IV Q12HR [facility]; Protocol Stop: 09/03/19 09:46 Last Admin: 08/04/19 09:58 Dose: 10 mls Documented by: L-Arginine/L-Glutamine/HMB (Jamel) 1 pkt PO BID [facility] Stop: 09/03/19 09:01 Last Admin: 08/04/19 09:52 Dose: 1 pkt Documented by: Lamotrigine (Lamictal) 150 mg PO BID [facility] Stop: 09/01/19 21:01 Last Admin: 08/04/19 09:47 Dose: 150 mg Documented by: Levetiracetam (Keppra Tab) 750 mg PO DAILY [facility] Stop: 09/02/19 09:01 Lorazepam (Ativan) 0.5 mg PO DAILY PRN PRN Reason: INSOMNIA Stop: 09/01/19 00:47 Losartan Potassium (Cozaar) 50 mg PO BEDTIME [facility] Stop: 09/01/19 21:01 Last Admin: 08/02/19 20:48 Dose: Not Given Documented by: Midodrine (Proamatine) 10 mg PO TID [facility] Stop: 09/01/19 04:41 Last Admin: 08/04/19 09:50 Dose: 10 mg Documented by: Morphine Sulfate (Morphine Sulfate) 2 mg IV Q4H PRN PRN Reason: Pain scale 5-7 (Moderate) Stop: 09/01/19 00:45 Ondansetron HCl (Zofran) 4 mg IV Q8H PRN PRN Reason: NAUSEA / VOMITING Stop: 09/01/19 00:45 Oxycodone/Acetaminophen (Percocet 5/325 Tab) 1 tab PO Q4H PRN PRN Reason: Pain scale 5-7 (Moderate) Stop: 09/01/19 00:47 Potassium Chloride (Klor-Con 10 Meq Tab) 10 meq PO DAILY [facility] Stop: 09/02/19 09:01 Last Admin: 08/04/19 09:00 Dose: Not Given Documented by: Risperidone (Risperdal 0.25 Mg Tab) 0.5 mg PO BEDTIME [facility] Stop: 09/01/19 21:01 Last Admin: 08/03/19 21:42 Dose: 0.5 mg Documented by: Sodium Chloride (Normal Saline Flush) 10 ml IV BID [facility] Stop: 09/01/19 09:01 Last Admin: 08/04/19 09:52 Dose: 10 ml Documented by: ROS: CV: Denies chest pain RESP: Denies shortness of breath : Denies dysuria GI: Denies nausea, reports episode of diarrhea MSK: Reports nonambulatory Objective: Temp Pulse Resp BP Pulse Ox 97.3 F 71 20 112/54 L 99 08/04/19 11:31 08/04/19 11:31 08/04/19 11:31 08/04/19 11:31 08/04/19 11:31 Labs: Na 139, K 43., BUN 61, Creat 2.35, Pro angelica 85.62, WBC 17.6, Hgb 8.2, Hct 26.2, Bands 16 Chest x-ray 07/31: Pulmonary edema Vs. Pneumonia Chest x-ray 08/01: Negative Abd CT 08/03: 15mm Calculus left UPJ and Left hydronephrosis ROS: General: Awake, alert, unsure of where she is CV: S1,S2 RESP: good breath sounds ABD: round, soft, bowel sounds present : Huntley catheter with cloudy dark urine Extremities: no edema Assessment and plan: Leukocytosis secondary to UTI and bacteremia Urine and blood culture positive for Proteus Mirabilis, sensitive to Rocephin Renal stone, patient to have renal stent placed tomorrow Recommend to continue Rocephin IV, will repeat blood cultures and reevaluate antibiotics Pro angelica malnourished, MBS done and recommended Puree diet Will continue to monitor Patient discussed with Dr. Katz
[2019-08-04] MEDS: LEVETIRACETAM PO SCH (21:00)
[2019-08-04] MEDS: RISPERIDONE 0.25 MG TABLET PO SCH (21:27)
[2019-08-05] MEDS: NA CHLORIDE 0.9% 1,000 ML IV SCH (04:28)
[2019-08-05 05:05] VITALS: BMI 29.3
[2019-08-05 05:37] LABS: Bilirubin Total 0.1 mg/dL (0.2-1.0); Potassium 3.8 mmol/L (3.5-5.1)
[2019-08-05 05:43] LABS: Absolute Lymphocytes (CBC) 0.4 K/uL (0.7-4.9); Basophils % 0.3 % (0-1.3); MPV 8.9 fL (7.6-11.3); RBC Red Blood Cell Count 2.67 M/uL (3.86-4.86)
[2019-08-05] MEDS: CEFTRIAXONE/SWI 1gm 1 GM/10 ML SYR IV SCH (08:45)
[2019-08-05] MEDS: MORPHINE 2 MG/ML SYR IV PRN ×2 (08:49→14:57)
[2019-08-05] MEDS: FERROUS SULFATE 325 MG TAB PO SCH (08:53)
[2019-08-05] MEDS: JUVEN PACKET PO SCH ×2 (08:53→21:22)
[2019-08-05] MEDS: BUSPIRONE HCL 5 MG TABLET PO SCH ×2 (08:53→21:19)
[2019-08-05] MEDS: lamoTRIgine 150 MG TAB PO SCH ×2 (08:53→21:19)
[2019-08-05] MEDS: APIXABAN 2.5 MG TABLET PO SCH ×2 (08:53→21:19)
[2019-08-05] MEDS: POTASSIUM CL SA 10 MEQ TAB PO SCH (08:53)
[2019-08-05] MEDS: ESCITALOPRAM 20 MG TAB PO SCH (08:54)
[2019-08-05] MEDS: FAMOTIDINE 20 MG TAB PO SCH (08:55)
[2019-08-05] MEDS: GALANTAMINE 4 MG TAB PO SCH ×2 (08:58→21:18)
[2019-08-05] MEDS: MIDODRINE HCL 5 MG TABLET PO SCH ×3 (08:58→21:18)
[2019-08-05] MEDS: allopurinoL 100 MG TAB PO SCH (08:58)
[2019-08-05] MEDS: CARBIDOPA/LEVODOPA 25/100 TAB PO SCH ×2 (08:58→21:18)
--- NOTE | 2019-08-05 09:34 | RAD REPORT ---
EXAM DESCRIPTION: RAD - Abdomen 1 View (KUB) - 08/05/2019 9:16 am CLINICAL HISTORY: pre stent placement , obstructing left UPJ calculus COMPARISON: Stone Protocol dated 08/04/2019 FINDINGS: The oval-shaped obstructing UPJ calculus is again identified along the left lateral margin L3 body. Lower pole left renal calculi seen on the CT study are obscured by retained contrast and st ool in the colon. Patient has a large amount of stool distending the rectum. No bowel obstruction or free air. IMPRESSION: Oval shaped obstructing left UPJ calculus is identified and unchanged in position from August 03 CT study.
[2019-08-05] MEDS ORDERED: CEFEPIME 2 GM in NA CHLORIDE 0.9% 100 ML IV SCH (10:00)
[2019-08-05] MEDS: levETIRAcetam 750 MG in NA CHLORIDE 0.9% 100 ML IV SCH ×2 (10:07→21:17)
--- NOTE | 2019-08-05 10:17 | PN ---
Date of Progress Note: 08/05/2019 Patient seen and examined. Chart reviewed and case discussed with RN and Dr. Bustillos. The patient is going for a procedure today by Dr. Bustillos, currently n.p.o. Medications: List reviewed. Physical Examination: Vital Signs: Temperature 97, heart rate 74, blood pressure 135/57, respirations 20, O2 98% on room air. General: Awake, alert, oriented x2, somewhat confused, elderly female, ill- appearing. CV: S1, S2. Regular rate and rhythm. Peripheral pulses present. Respiratory: Moving air well bilaterally. No wheezing or stridor. No use of accessory muscles. Gastrointestinal: Abdomen is soft, nontender, nondistended. Some left-sided flank pain. Extremities: No clubbing, cyanosis, or significant edema. Neuro: Nonfocal. Skin: No rashes. Normal skin turgor. Laboratory Data: Sodium 145, potassium 3.8, chloride 114, CO2 of 23, BUN 58, creatinine 2.04, glucose 92, calcium 8.4. WBC 14.5, H and H 8.1 and 26, platelets 211, neutrophils 91%. Urine culture is growing out proteus. Blood culture is growing out proteus as well, and now pseudomonas resistant to Rocephin. Assessment And Plan: 88-year-old female with: 1. Sepsis with shock, improving. Blood pressure is better. Secondary to urinary tract infection and bacteremia. Blood cultures now showing pseudomonas as well which is resistant to Rocephin. We will adjust intravenous antibiotics. White blood cell count trending down. 2. Bacteremia secondary to proteus and pseudomonas. Intravenous antibiotics adjusted again. We will start on cefepime, renally dosed. Appreciate Infectious Disease input. 3. Acute cystitis without hematuria secondary to proteus. 4. Acute kidney injury. Creatinine is improving. Appreciate Nephrology input. We will continue to monitor closely. 5. Left ureteropelvic junction stone. Patient is scheduled for procedure today by Dr. Bustillos. Patient does have hydronephrosis. 6. Hydronephrosis on the left kidney secondary to above. 7. Atrial fibrillation, controlled ventricular rate. We will hold Eliquis due to procedure. Continue rate control. 8. Acute metabolic encephalopathy secondary to sepsis, bacteremia, and hypotension. Should improve as clinical status improves. 9. Generalized weakness. Patient is nonambulatory at baseline, uses wheelchair. 10. History of seizure disorder. Continue Keppra. No seizure episodes during the hospitalization. 11. Deep vein thrombosis prophylaxis. Eliquis currently held due to procedure. 12. Dysphagia. The patient usually is on a pureed diet. Plan: Anticipate procedure today. IV antibiotics have been adjusted. Likely discharge in the next 48 hours depending on clinical improvement. MARTY Voice ID: [id number] Report ID: [id number] [place]
[2019-08-05] MEDS: CEFEPIME/SWI 2gm 2 GM/20 ML SYR IV SCH (10:31)
[2019-08-05] MEDS ORDERED: Ringers Lactate 1,000 ML IV ONE (12:33)
[2019-08-05] MEDS ORDERED: propofoL 200 MG/20 ML VIAL IV ONE ×2 (12:52→13:27)
[2019-08-05] MEDS ORDERED: FENTANYL CITR 100 MCG/2 ML ONE (12:53)
[2019-08-05] MEDS ORDERED: Phenylephrine HCl 10 MG/ML 1 ML VIAL ONE (13:20)
[2019-08-05] MEDS ORDERED: NS 0.9% VIAL 20 ML ONE (13:21)
--- NOTE | 2019-08-05 13:44 | ECHO ---
HEIGHT: 5 ft 2 in WEIGHT: 160 lb 4.8 oz DATE OF STUDY: 08/04/[address]: Michele Ahuja MD 2-DIMENSIONAL: YES M.MODE: YES DOPPLER: YES COLOR FLOW: YES TDS: YES PORTABLE: NO DEFINITY: NO BUBBLE STUDY: NO DIAGNOSIS: HISTORY OF CONGESTIVE HEART FAILURE CARDIAC HISTORY: CATHERIZATION: SURGERY: PROSTHETIC VALVE: PACEMAKER: MEASUREMENTS (cm) DIASTOLIC (NORMALS) SYSTOLIC (NORMALS) IVSd 1.0 (0.6-1.2) LA Diam 3.4 (1.9-4.0) LVEF 55-60% LVIDd 4.3 (3.5-5.7) LVIDs 2.3 (2.0-3.5) %FS 47% LVPWd 1.1 (0.6-1.2) Ao Diam 2.9 (2.0-3.7) 2 DIMENSIONAL ASSESSMENT: RIGHT ATRIUM: NORMAL LEFT ATRIUM: NORMAL RIGHT VENTRICLE: NORMAL LEFT VENTRICLE: NORMAL TRICUSPID VALVE: MODERATE TRICUSPID REGURGITATION MITRAL VALVE: MILD MITRAL REGURGITATION PULMONIC VALVE: MILD PULMONARY INSUFFICIENCY AORTIC VALVE: MILD AORTIC INSUFFICIENCY PERICARDIAL EFFUSION: NONE AORTIC ROOT: NORMAL LEFT VENTRICULAR WALL MOTION: NORMAL. DOPPLER/COLOR FLOW: AT LEAST MODERATE PULMONARY HYPERTENSION. COMMENTS: NORMAL LEFT VENTRICULAR EJECTION FRACTION 55-60% WITH NORMAL WALL MOTION. DIASTOLIC DYSFUNCTION. MODERATE PULMONARY HYPERTENSION, RIGHT VENTRICULAR SYSTOLIC PRESSURE IS GREATER THAN 50mmHg. MILD MITRAL REGURGITATION, MILD AORTIC INSUFFICIENCY, MILD PULMONIC INSUFFICIENCY, MODERATE TRICUSPID REGURGITATION. TECHNOLOGIST: KEISHA KEENAN
--- NOTE | 2019-08-05 14:02 | RAD REPORT ---
EXAM DESCRIPTION: RAD - Cystography - 08/05/2019 1:48 pm CLINICAL HISTORY: ICD N 20.0 ureteral calculus FINDINGS: 8 fluoroscopic spot images obtained. Fluoroscopy time 0.50 minutes Left ureter was cannulated and contrast administered. Subsequently a left ureteral stent was placed. Examination was performed by
--- NOTE | 2019-08-05 15:26 | P.PN ---
Date of Service: 08/05/19 Subjective: Patient is an 88 year old female who presents with AMS, lethargy and fever. Patient has history of dementia. Patients daughter lives with her and helps take care of her. Patient found to have UTI and bacteremia which I have been consulted for. Patient examined at bedside, lethargic. Patient had renal stent placed today. Urine and blood cultures positive. Patient has daughter who lives at home with her and able to care for her. Objective: Temp Pulse Resp BP Pulse Ox 98 F 72 16 113/56 L 97 08/05/19 14:12 08/05/19 14:12 08/05/19 14:12 08/05/19 14:12 08/05/19 12:00 Labs: Na 145, K 3.8, BUN 58, Creat 2.04, Pro angelica 85.62, WBC 14.5, Hgb 8.1, Hct 26.0, Bands 16 Chest x-ray 07/31: Pulmonary edema Vs. Pneumonia Chest x-ray 08/01: Negative Abd CT 08/03: 15mm Calculus left UPJ and Left hydronephrosis ROS: General: lethargic CV: S1,S2 RESP: good breath sounds ABD: round, soft, bowel sounds present : Huntley catheter with hematuria s/p renal stent Extremities: no edema Assessment and plan: Leukocytosis secondary to UTI and bacteremia Urine culture positive for Proteus Mirabilis Blood cultures positive for Proteus Mirabilis and Pseudomonas Aeruinosa Recommend to continue IV Merrem, awaiting repeat blood cultures Patient will need 2 weeks of antibiotics Pro angelica malnourished, MBS done and recommended Puree diet Will continue to monitor Patient discussed with Dr. Katz
--- NOTE | 2019-08-05 17:36 | P.PN ---
Subjective Date of Service: 08/05/19 Chief Complaint: Respiratory distress Subjective: No new changes No new acute changes. Pt in no distress. Plans for stenting of left hydronephrosis tommorrow, Npo after midnight Review of Systems Unable to obtain due to dementia Physical Examination - Vital Signs Temperature: 97.6 F Blood Pressure: 182/85 Pulse: 65 Respirations: 18 Pulse Ox (%): 96 - Physical Exam HEENT: Atraumatic, Normocephalic, PERRLA Neck: 2+ carotid pulse no bruit Respiratory: Clear to auscultation bilaterally, Diminished Cardiovascular: No edema, Normal pulses Capillary refill: <2 Seconds Gastrointestinal: Normal bowel sounds, Soft and benign, No ascites Integumentary: No rashes, No erythema, No warmth Urinary: Dialysis catheter - Studies Microbiology Data (last 24 hrs): 08/01/19 21:58 Blood - Blood Aerobic Blood Culture - Final Pseudomonas Aeruginosa 08/01/19 21:58 Blood - Blood Blood Culture Gram Stain - Final 08/01/19 21:58 Blood - Blood Anaerobic Blood Culture - Final Assessment And Plan - Current Problems (Diagnosis) (1) Renal failure (ARF), acute on chronic Current Visit: Yes Status: Acute Plan: Most likely acute on chronic kidney failure; Improving Acute portion 2/2 prerenal , ATN, obstructive uropathy Renal ultrasound suggestive of renal disease, also notable mild obstructive uropathy from left hydronephrosis Pt to get ureteral stenting due to large size of stone Continue gentle hydration with IVF @75CC/H, however will switch fluids to 1/2ns@75cc/h Maintain warren for strict i/os and obstructive uropathy. Avoid nephrotoxins, nsaids, CT contrasted studies, caution with acei and arb Would continue to hold lasix and losartan at this time. Qualifiers: Acute renal failure type: with other specified pathological lesion Chronic kidney disease stage: stage 3 (moderate) Qualified Code(s): N17.8 - Other acute kidney failure; N18.3 - Chronic kidney disease, stage 3 (moderate) (2) UTI (urinary tract infection) Onset Date: 04/08/18 Current Visit: No Status: Acute Plan: Management with antibiotics per primary team. On cefepime. Renallydosed appropriately Qualifiers: Urinary tract infection type: acute cystitis Hematuria presence: without hematuria Qualified Code(s): N30.00 - Acute cystitis without hematuria (3) Hypertension Onset Date: 03/11/17 Current Visit: No Status: Chronic Plan: Hypertension controlled earlier in the day 114/80. Now worsened top 180/90. If persistently high tommorrow, would increase atenolol. Recommend holding losartan still kris to recovering COSME Qualifiers: Hypertension type: essential hypertension Qualified Code(s): I10 - Essential (primary) hypertension - Plan Initially controlled earlier in the day 114/80, now 180/90, if sustained tomorrow, will need to increase atenolol. Would still hold losartan in the setting of COSME Physician Review: Patient Assessed, Agree with Above Assessment and Plan
[2019-08-05] MEDS: NACHLORIDE 0.45% 1,000 ML IV SCH (18:21)
--- NOTE | 2019-08-05 18:58 | CON ---
History Of Present Illness: An 88-year-old black lady presented with altered mental status, lethargy, and fever. She was diagnosed for urosepsis. She was found to have left hydronephrosis. CT scan showed 15 mm left UPJ stone Hounsfield unit 630 with moderate left hydro and small cysts. She also had some stones on the right side, but nonobstructive. Appears that they were on the right may be in the parenchyma of the kidney and she may possible have had a percutaneous procedure done before. However, she is a poor historian, does not remember that. Past Medical History: Hypertension, chronic kidney disease, coronary artery disease, Parkinson's, seizure, DVT, atrial fibrillation. Family History: Significant for diabetes. Allergies: TO NITROFURANTOIN, PENICILLIN. Active Medications: Tylenol, allopurinol, Eliquis, atenolol, BuSpar, Sinemet, Lexapro, Pepcid, iron, Razadyne, Keppra, tolterodine, hydralazine, levetiracetam, ceftriaxone, Jamel, Lamictal, lorazepam, Cozaar, morphine sulfate, Zofran, Percocet, potassium chloride, Risperdal. Review of Systems: Denies chest pain. Respiratory: no shortness of breath. : No dysuria. GI: No nausea, no vomiting. Musculoskeletal: Nonambulatory. Physical Examination: Vital Signs: Today; 96.9, 74, respirations 22, BP 103/58, saturations 97%. HEENT: Atraumatic, normocephalic. Chest: Clear. Heart: Regular rate and rhythm. Abdomen: Soft, nontender. Extremities: Normal range of motion. Laboratory Data: White count was 21.8 on 07/31, today is 14.5 with antibiotics; H and H are 8 and 26, platelet count 211. Coagulations: PT 18.8, INR 1.6. Chemistry shows sodium 145, potassium 3.8, chloride 114, carbon dioxide 23, BUN 58, creatinine 2, GFR 28, glucose 92. Microbiology: Urine culture grew Proteus mirabilis. Proteus mirabilis sensitive to Bactrim, Augmentin, Keflex; resistant to Cipro and Levaquin. Assessment: 15 mm left ureteropelvic junction stone, status post urosepsis, now better on IV antibiotics. Plan: Plan is to go ahead and place a double-J stent placement. She will eventually need a lithotripsy of some sort. The Hounsfield unit is low 630, so since the stone can be seen in KUB, which certainly can give the shot and try to do an ESWL in a few weeks. She knows all general information, alternatives, and risks. Consent was obtained from the power of banking attorney, one of her daughters and ready to proceed. JOI/ALEXX Voice ID: [id number] Report ID: [id number] MTDD
[2019-08-05] MEDS: LEVETIRACETAM PO SCH (21:00)
[2019-08-05] MEDS: RISPERIDONE 0.25 MG TABLET PO SCH (21:18)
[2019-08-06 05:32] LABS: Absolute Lymphocytes (CBC) 0.8 K/uL (0.7-4.9); Basophils % 0.4 % (0-1.3); Hematocrit 25.1 % (36.0-45.0); Lymphocytes % 8.2 % (15.3-44.8); MPV 9.6 fL (7.6-11.3); RBC Red Blood Cell Count 2.56 M/uL (3.86-4.86)
[2019-08-06 05:42] LABS: AST/SGOT 52 U/L (15-37); Alkaline Phosphatase 98 U/L (45-117); BUN Blood Urea Nitrogen 42 mg/dL (7-18); Bicarbonate 24 mmol/L (21-32); Bilirubin Total 0.2 mg/dL (0.2-1.0); Glucose Level 75 mg/dL (74-106); Potassium 3.3 mmol/L (3.5-5.1); Sodium Level 146 mmol/L (136-145)
[2019-08-06 05:51] LABS: ALT/SGPT < 6 U/L (12-78)
[2019-08-06] MEDS: MORPHINE 2 MG/ML SYR IV PRN ×2 (08:39→15:36)
[2019-08-06] MEDS: lamoTRIgine 150 MG TAB PO SCH ×2 (08:52→20:20)
[2019-08-06] MEDS: APIXABAN 2.5 MG TABLET PO SCH ×2 (08:52→20:20)
[2019-08-06] MEDS: MIDODRINE HCL 5 MG TABLET PO SCH ×3 (08:52→20:20)
[2019-08-06] MEDS: GALANTAMINE 4 MG TAB PO SCH ×2 (08:53→20:20)
[2019-08-06] MEDS: allopurinoL 100 MG TAB PO SCH (08:53)
[2019-08-06] MEDS: BUSPIRONE HCL 5 MG TABLET PO SCH ×2 (08:53→20:20)
[2019-08-06] MEDS: levETIRAcetam 500 MG TAB PO SCH (08:54)
[2019-08-06] MEDS: CARBIDOPA/LEVODOPA 25/100 TAB PO SCH ×2 (08:55→20:20)
[2019-08-06] MEDS: FAMOTIDINE 20 MG TAB PO SCH (08:55)
[2019-08-06] MEDS: ESCITALOPRAM 20 MG TAB PO SCH (08:55)
[2019-08-06] MEDS: POTASSIUM CL SA 10 MEQ TAB PO SCH (08:56)
[2019-08-06] MEDS: FERROUS SULFATE 325 MG TAB PO SCH (08:56)
[2019-08-06] MEDS: JUVEN PACKET PO SCH ×2 (08:57→20:21)
[2019-08-06] MEDS: levETIRAcetam 750 MG in NA CHLORIDE 0.9% 100 ML IV SCH ×2 (08:57→20:20)
[2019-08-06] MEDS: atenoloL 50 MG TAB PO SCH (08:58)
[2019-08-06] MEDS: CEFEPIME/SWI 2gm 2 GM/20 ML SYR IV SCH (08:59)
[2019-08-06] MEDS: NACHLORIDE 0.45% 1,000 ML IV SCH ×2 (08:59→17:10)
--- NOTE | 2019-08-06 10:39 | P.PN ---
Subjective Date of Service: 08/06/19 Chief Complaint: Respiratory distress Subjective: No new changes Review of Systems is unable to be obtained Physical Examination - Vital Signs Temperature: 97.2 F Blood Pressure: 118/58 Pulse: 79 Respirations: 18 Pulse Ox (%): 97 - Physical Exam General: Alert, Confused HEENT: Atraumatic, Normocephalic Neck: Supple Respiratory: Clear to auscultation bilaterally Cardiovascular: Normal pulses, Regular rate/rhythm Capillary refill: <2 Seconds Gastrointestinal: Soft and benign, W/out hepatosplenomegaly Musculoskeletal: No clubbing, No swelling Integumentary: No rashes Neurological: Other (Alert , ) Lymphatics: No axilla or inguinal lymphadenopathy Rectal: Deferred - Studies Laboratory Last Values WBC 21.8 K/uL (4.3-10.9) H* 08/01/19 21: RBC 2.96 M/uL (3.86-4.86) L 08/01/19 21:23 Hgb 9.3 g/dL (12.0-15.0) L 08/01/19 21:23 Hct 29.3 % (36.0-45.0) L 08/01/19 21:23 MCV 98.9 fL (80-100) 08/01/19 21:23 MCH 31.4 pg (27.0-35.0) 08/01/19 21: MCHC 31.7 g/dL (32.0-36.0) L 08/01/19 21:23 RDW 15.9 % (12.1-15.2) H 08/01/19 21:23 Plt Count 256 K/uL (152-406) 08/01/19 21:23 MPV 8.7 fL (7.6-11.3) 08/01/19 21:23 Neutrophils % 93.8 % (41.7-73.7) H 08/01/19 21:23 Lymphocytes % 1.8 % (15.3-44.8) L 08/01/19 21:23 Monocytes % 4.0 % (3.3-12.3) 08/01/19 21: Eosinophils % 0.0 % (0-4.4) 08/01/19 21: Basophils % 0.4 % (0-1.3) 08/01/19 21:23 Absolute Neutrophils 20.5 K/uL (1.8-8.0) H 08/01/19 21:23 Segmented Neutrophils 74 % (40-80) 08/01/19 21: Band Neutrophils 16 % (0-1) H* 08/01/19 21:23 Absolute Lymphocytes 0.4 K/uL (0.7-4.9) L 08/01/19 21: Lymphocytes 4 % (15-42) L 08/01/19 21: Monocytes 6 % (0-10) 08/01/19 21: Absolute Monocytes 0.9 K/uL (0.1-1.3) 08/01/19 21: Absolute Eosinophils 0.0 K/uL (0-0.5) 08/01/19 21: Absolute Basophils 0.1 K/uL (0-0.5) 08/01/19 21: Morphology Comment Not seen (NOT SEEN) 08/01/19 21: PT 20.9 SECONDS (9.5-12.5) H 08/01/19 21: INR 1.79 08/01/19 21:23 APTT 34.8 SECONDS (24.3-36.9) 08/01/19 21:23 Sodium 137 mmol/L (136-145) 08/01/19 21: Potassium 4.0 mmol/L (3.5-5.1) 08/01/19 21: Chloride 103 mmol/L (98-107) 08/01/19 21: Carbon Dioxide 25 mmol/L (21-32) 08/01/19 21: BUN 41 mg/dL (7-18) H 08/01/19 21:23 Creatinine 3.00 mg/dL (0.55-1.3) H 08/01/19 21:23 Estimated GFR 18 mL/min (=/>90) L 08/01/19 21:23 Glucose 130 mg/dL (74-106) H 08/01/19 21:23 Lactic Acid 1.3 mmol/L (0.4-2.0) 08/01/19 21: Calcium 8.4 mg/dL (8.5-10.1) L 08/01/19 21:23 Total Bilirubin 0.4 mg/dL (0.2-1.0) 08/01/19 21:23 Direct Bilirubin 0.2 mg/dL (0-0.2) 08/01/19 21:23 AST 15 U/L (15-37) 08/01/19 21:23 ALT < 6 U/L (12-78) L 08/01/19 21:23 Alkaline Phosphatase 95 U/L (45-117) 08/01/19 21:23 Creatine Kinase 70 U/L (26-192) 08/01/19 21:23 CK-MB (CK-2) < 1.0 ng/mL (0.3-3.6) 08/01/19 21: Rapid Troponin I < 0.02 ng/mL (0.0-0.045) 08/01/19 21: Serum Total Protein 7.2 g/dL (6.4-8.2) 08/01/19 21: Albumin 2.4 g/dL (3.4-5.0) L 08/01/19 21: Globulin 4.8 g/dL (2.3-3.5) H 08/01/19 21: Albumin/Globulin Ratio 0.5 (1.1-1.8) L 08/01/19 21: Amylase 74 U/L (25-115) 08/01/19 21: Lipase 35 U/L (73-393) L 08/01/19 21:23 Procalcitonin 85.62 ng/mL (<0.50) H 08/01/19 21:23 Urine RBC <5 /HPF (NONE SEEN) 08/01/19 22:02 Urine WBC >50 /HPF (<5) H 08/01/19 22:02 Ur Squamous Epith Cells 10-20 /HPF (NONE SEEN) H 08/01/19 22:02 Ur Urothelial Cells 5-10 /HPF (NONE SEEN) 08/01/19 22:02 Urine Bacteria Loaded /HPF (<20) H 08/01/19 22:02 Urine Culture Reflexed Not needed 08/01/19 22:02 Microbiology Data (last 24 hrs): 08/01/19 21:58 Blood - Blood Aerobic Blood Culture - Final Pseudomonas Aeruginosa 08/01/19 21:58 Blood - Blood Blood Culture Gram Stain - Final 08/01/19 21:58 Blood - Blood Anaerobic Blood Culture - Final Assessment & Plan Physician Review: Patient Assessed, Agree with Above Assessment and Plan Physician Review Additional Text: Assessment And Plan: 1. Sepsis with shock, improving. Secondary to urinary tract infection and bacteremia. Blood cultures positive for Proteus and Pseudomonas Leukocytosis normalized . 2. Bacteremia with proteus and pseudomonas. Appreciate ID consult Antibiotics adjusted Repeat blood cultures negative so far 3. Acute cystitis without hematuria secondary to proteus. 4. Acute kidney injury. Creatinine is improving. Appreciate Nephrology input. We will continue to monitor closely. 5. Left ureteropelvic junction stone. Appreciate help from Dr. Bustillos. Status post stent placement 6. Hydronephrosis on the left kidney secondary to above. Monitor renal parameters 7. Atrial fibrillation, controlled ventricular rate. Continue rate control. Continue anticoagulation 8. Acute metabolic encephalopathy secondary to sepsis, bacteremia, and hypotension. Monitor neuro vital signs closely 9. Generalized weakness. Patient is nonambulatory at baseline, uses wheelchair. 10. History of seizure disorder. Continue Keppra. No seizure episodes duringthe hospitalization. 11. Deep vein thrombosis prophylaxis. Eliquis currently held due to procedure. 12. Dysphagia. The patient usually is on a pureed diet. Disposition Awaiting final culture report or the blood If negative and if clinically better possible DC to SNF Time Spent Managing Pts Care (In Minutes): 36
[2019-08-06] MEDS: LEVETIRACETAM PO SCH (20:11)
[2019-08-06] MEDS: RISPERIDONE 0.25 MG TABLET PO SCH (20:20)
[2019-08-07] MEDS: NACHLORIDE 0.45% 1,000 ML IV SCH ×4 (03:42→20:21)
[2019-08-07] MEDS: APIXABAN 2.5 MG TABLET PO SCH ×2 (08:46→20:19)
[2019-08-07] MEDS: atenoloL 50 MG TAB PO SCH (08:46)
[2019-08-07] MEDS: levETIRAcetam 500 MG TAB PO SCH (08:46)
[2019-08-07] MEDS: BUSPIRONE HCL 5 MG TABLET PO SCH ×2 (08:47→20:19)
[2019-08-07] MEDS: allopurinoL 100 MG TAB PO SCH (08:47)
[2019-08-07] MEDS: GALANTAMINE 4 MG TAB PO SCH ×2 (08:47→20:19)
[2019-08-07] MEDS: CARBIDOPA/LEVODOPA 25/100 TAB PO SCH ×2 (08:48→20:20)
[2019-08-07] MEDS: FERROUS SULFATE 325 MG TAB PO SCH (08:48)
[2019-08-07] MEDS: ESCITALOPRAM 20 MG TAB PO SCH (08:48)
[2019-08-07] MEDS: FAMOTIDINE 20 MG TAB PO SCH (08:48)
[2019-08-07] MEDS: lamoTRIgine 150 MG TAB PO SCH ×2 (08:49→20:19)
[2019-08-07] MEDS: POTASSIUM CL SA 10 MEQ TAB PO SCH (08:49)
[2019-08-07] MEDS: levETIRAcetam 750 MG in NA CHLORIDE 0.9% 100 ML IV SCH ×2 (08:50→20:19)
[2019-08-07] MEDS: CEFEPIME/SWI 2gm 2 GM/20 ML SYR IV SCH (08:50)
[2019-08-07] MEDS: JUVEN PACKET PO SCH ×2 (08:53→20:19)
--- NOTE | 2019-08-07 08:57 | P.PN ---
Subjective Date of Service: 08/06/19 Chief Complaint: Respiratory distress Subjective: No new changes S/p ureteral stenting. Urine output dramatically increased. Suspect post obstructive diuresis. Pt comfortable. No complaints. Still confused Review of Systems Unable to obtain due to dementia but looks comfortable. No complaints Physical Examination - Vital Signs Temperature: 96.6 F Blood Pressure: 144/55 Pulse: 82 Respirations: 18 Pulse Ox (%): 95 - Physical Exam General: Alert, Oriented x1 HEENT: Atraumatic, Normocephalic Neck: Supple, JVD not distended Respiratory: Clear to auscultation bilaterally, Normal air movement, Diminished Cardiovascular: No edema, No gallops, No rubs Capillary refill: Brisk Gastrointestinal: Normal bowel sounds, Soft and benign, Non-distended Musculoskeletal: No clubbing Integumentary: No rashes Assessment & Plan - Problems (Diagnosis) (1) Renal failure (ARF), acute on chronic Current Visit: Yes Status: Acute Plan: Most likely acute on chronic kidney failure; Improving s/p ureteral stenting; 2.1--->1.6 Acute portion 2/2 prerenal , ATN, obstructive uropathy Will increase hydration to 1/2ns @100cc/h due to hypernatremia if persistently elevated will switch to 1/4 ns Maintain warren for strict i/os Avoid nephrotoxins, nsaids, CT contrasted studies, caution with acei and arb Would continue to hold lasix and losartan at this time, if kidney function and blood pressure improved or clsoe to baseline . May resume losartan on discharge. If kidney fucntion improved as well as sodium improved to normal tommorrow, pt is renally clear for discharge to follow up in 2 weeks in clinic Will continue to follow Qualifiers: Acute renal failure type: with other specified pathological lesion Chronic kidney disease stage: stage 3 (moderate) Qualified Code(s): N17.8 - Other acute kidney failure; N18.3 - Chronic kidney disease, stage 3 (moderate) (2) UTI (urinary tract infection) Onset Date: 04/08/18 Current Visit: No Status: Acute Plan: Management with antibiotics per primary team. On cefepime. Renally dosed appropriately Qualifiers: Urinary tract infection type: acute cystitis Hematuria presence: without hematuria Qualified Code(s): N30.00 - Acute cystitis without hematuria (3) Hypertension Onset Date: 03/11/17 Current Visit: No Status: Chronic Plan: Stable. Continue to monitor need to resume antihypertensive. May start with atenolol before losartan prior to discharge. Please if any questions regarding care of pt. Please free to call [phone] Qualifiers: Hypertension type: essential hypertension
[2019-08-07] MEDS: MIDODRINE HCL 5 MG TABLET PO SCH (09:00)
[2019-08-07 09:33] LABS: Potassium 3.4 mmol/L (3.5-5.1)
--- NOTE | 2019-08-07 11:36 | PN ---
Date of Progress Note: 08/07/2019 Patient seen and examined. Chart reviewed and case discussed with RN. Patient is still somewhat confused. No family at the bedside. Medications: List reviewed. Code status addressed Physical Examination: Vital Signs: Temperature 96.6, heart rate 82, blood pressure 144/55, respirations 18, O2 95% on room air. General: Awake, alert, oriented x1, elderly female, somewhat confused, ill- appearing. CV: S1, S2. Regular rate and rhythm. Peripheral pulses present. Respiratory: Diminished breath sounds at the bases. No wheezing or stridor. Gastrointestinal: Abdomen is soft, nontender, nondistended. Positive bowel sounds. Extremities: No clubbing or cyanosis. No pedal edema. Neuro: Moves all 4 extremities, confused, not really able to follow commands. Skin: No rashes. Normal skin turgor. Laboratory Data: Labs pending. Cultures growing out proteus from urine and pseudomonas, as well as proteus from the blood. Assessment: 88-year-old female with: 1. Sepsis with shock, improving. Blood pressure is better. We will hold midodrine secondary to urinary tract infection and bacteremia. Cultures positive for proteus and pseudomonas. White blood cells normalized. 2. Bacteremia secondary to proteus and pseudomonas. Appreciate Infectious Disease input. Patient is on cefepime. May need long-term intravenous antibiotics. We will discuss with Infectious Disease. Repeat blood cultures are negative. 3. Acute cystitis without hematuria secondary to proteus. Continue cefepime. 4. Acute kidney injury. Creatinine is improving. Nephrology on board. We will continue to monitor creatinine level closely. Avoid nonsteroidal anti- inflammatory drugs and nephrotoxins. 5. Left ureteropelvic junction stone with pus found in the left kidney. Patient has now stent placement. She will need stone retrieval in a couple weeks with Dr. Bustillos. 6. Hydronephrosis secondary to above, improving. Urine output is better. 7. Atrial fibrillation, controlled ventricular rate. Continue rate control and anticoagulation. 8. Acute metabolic encephalopathy secondary to sepsis, bacteremia, and hypotension. Patient is still somewhat confused. Consider neurology evaluation. 9. Generalized weakness. Patient is nonambulatory at baseline. Continue physical therapy. 10. History of seizure disorder. Continue Keppra. No seizure episodes currently. Continue with seizure precautions. 11. Deep venous thrombosis prophylaxis with Eliquis. 12. Dysphagia. Patient is on pureed diet. Plan: May need to discharge to SNF due to her condition. We will discuss with family. Mental status not improving, consider Neuro eval. SA/MODL Voice ID: [id number] Report ID: [id number] MTDD
[2019-08-07] MEDS ORDERED: POTASSIUM 25 MEQ EFFERV TAB PO ONE (12:00)
[2019-08-07] MEDS: RISPERIDONE 0.25 MG TABLET PO SCH (20:19)
[2019-08-07] MEDS: LEVETIRACETAM PO SCH (20:21)
[2019-08-07] MEDS: MORPHINE 2 MG/ML SYR IV PRN (21:55)
[2019-08-08] MEDS: NACHLORIDE 0.45% 1,000 ML IV SCH ×3 (05:00→10:05)
[2019-08-08 06:22] LABS: Absolute Lymphocytes (CBC) 1.8 K/uL (0.7-4.9); Basophils % 0.8 % (0-1.3); Hematocrit 24.4 % (36.0-45.0); Lymphocytes % 13.5 % (15.3-44.8); MPV 8.8 fL (7.6-11.3); RBC Red Blood Cell Count 2.53 M/uL (3.86-4.86)
[2019-08-08 06:31] LABS: Potassium 3.8 mmol/L (3.5-5.1)
[2019-08-08 07:30] LABS: Anisocytosis 1+; Blood Morphology Comment NOTED (NOT SEEN); Platelet Estimate ADEQ; Poikilocytosis 1+
[2019-08-08] MEDS: GALANTAMINE 4 MG TAB PO SCH ×2 (08:02→22:54)
[2019-08-08] MEDS: FAMOTIDINE 20 MG TAB PO SCH (08:02)
[2019-08-08] MEDS: FERROUS SULFATE 325 MG TAB PO SCH (08:02)
[2019-08-08] MEDS: APIXABAN 2.5 MG TABLET PO SCH ×2 (08:03→22:54)
[2019-08-08] MEDS: POTASSIUM CL SA 10 MEQ TAB PO SCH (08:03)
[2019-08-08] MEDS: BUSPIRONE HCL 5 MG TABLET PO SCH ×2 (08:03→22:54)
[2019-08-08] MEDS: allopurinoL 100 MG TAB PO SCH (08:03)
[2019-08-08] MEDS: CARBIDOPA/LEVODOPA 25/100 TAB PO SCH ×2 (08:03→22:57)
[2019-08-08] MEDS: ESCITALOPRAM 20 MG TAB PO SCH (08:03)
[2019-08-08] MEDS: lamoTRIgine 150 MG TAB PO SCH ×2 (08:03→22:55)
[2019-08-08] MEDS: levETIRAcetam 500 MG TAB PO SCH (08:03)
[2019-08-08] MEDS: atenoloL 50 MG TAB PO SCH (08:04)
[2019-08-08] MEDS: JUVEN PACKET PO SCH ×2 (08:04→21:00)
[2019-08-08] MEDS: levETIRAcetam 750 MG in NA CHLORIDE 0.9% 100 ML IV SCH ×2 (08:15→22:55)
[2019-08-08] MEDS ORDERED: POTASSIUM 25 MEQ EFFERV TAB PO ONE (09:00)
[2019-08-08] MEDS: CEFEPIME/SWI 2gm 2 GM/20 ML SYR IV SCH (09:11)
--- NOTE | 2019-08-08 10:05 | P.PN ---
Subjective Date of Service: 08/08/19 Chief Complaint: Respiratory distress Pt more confused today compared to other days. Review of Systems Neurological: Confusion Physical Examination - Vital Signs Temperature: 97.5 F Blood Pressure: 145/65 Pulse: 75 Respirations: 16 Pulse Ox (%): 95 - Physical Exam General: Alert, Oriented x1 HEENT: Atraumatic, Normocephalic, PERRLA Neck: Supple Respiratory: Clear to auscultation bilaterally, Diminished Cardiovascular: No edema, Normal pulses, No gallops, No rubs, No murmurs Capillary refill: >2 Seconds Gastrointestinal: Normal bowel sounds, Soft and benign, Non-distended, No ascites Assessment And Plan - Current Problems (Diagnosis) (1) Renal failure (ARF), acute on chronic Current Visit: Yes Status: Acute Plan: 2/2 acute on chronic kidney failure; Improving s/p ureteral stenting; 2.1--->1.6--->1.2--->0.98 Acute portion 2/2 prerenal , ATN, obstructive uropathy Fluids down to KVO Consider discontinuing warren cather and assess for post void residuals. Avoid nephrotoxins, nsaids, CT contrasted studies, caution with acei and arb If needed may resume losartan for blood pressure cotrol Qualifiers: Acute renal failure type: with other specified pathological lesion Chronic kidney disease stage: stage 3 (moderate) Qualified Code(s): N17.8 - Other acute kidney failure; N18.3 - Chronic kidney disease, stage 3 (moderate) (2) UTI (urinary tract infection) Onset Date: 04/08/18 Current Visit: No Status: Acute Plan: Management with antibiotics per primary team. On cefepime. Renally dosed appropriately Qualifiers: Urinary tract infection type: acute cystitis Hematuria presence: without hematuria Qualified Code(s): N30.00 - Acute cystitis without hematuria (3) Hypertension Onset Date: 03/11/17 Current Visit: No Status: Chronic Plan: Stable. Currently controlled on atenolol. May resume patients home dose of losartan for icnreasing bloo dpressures as needed. Pt is renally clear for discharge. Will continue to follow during hospital course Please free to call [phone] if you have any questions Qualifiers: Hypertension type: essential hypertension Qualified Code(s): I10 - Essential (primary) hypertension
--- NOTE | 2019-08-08 11:07 | RAD REPORT ---
EXAM DESCRIPTION: CT - Abdomen Pelvis W Contrast - 08/08/2019 10:37 am CLINICAL HISTORY: ureteral stent, on anticoag, r/out retroperi bleed, abdominal pain COMPARISON: Stone Protocol dated 08/04/2019; Thorax Wo Con dated 04/08/2018 TECHNIQUE: Biphasic, helical CT imaging of the abdomen and pelvis was performed following 100 ml non -ionic IV contrast. Oral contrast was given. All CT scans are performed using dose optimization technique as appropriate and may include automated exposure control or mA/KV adjustment according to patient size. FINDINGS: No suspicious findings in the lung bases. Cardiomegaly is present. Liver and spleen show no suspicious findings. Pancreatic duct is enlarged in the head. No pancreatic parenchymal abnormality identifiable. Gallbladder size is normal. Multiple small stones or collecting in the fundus of the gallbladder. No biliary tree dilatation. Renal function is symmetric. 3 centimeter cyst in the upper pole of the right kidney noted. No pyelon ephritis or acute renal parenchymal process seen. Double pigtail stent is in place in the left collec ting system. Proximal pigtail is in the upper pole of the right kidney. A 10 millimeter UPJ calculus is still present. No intraparenchymal or perinephric hemorrhage. There is a 12 millimeter stone in th e lower pole. Urinary bladder is fully contracted around a Huntley catheter. This precludes ability to accurately assess for any hemorrhage within the urinary bladder. No adrenal abnormalities. Uterus and ovaries show no suspicious findings for age. No dilated bowel loops or bowel wall thickening. Prominent bustillos diverticulosis without diverticulitis. The appendix is normal. Large amount of stool and contrast dilates the rectum to 8 cm. No free air o r pneumatosis. Fluid retention is present in the subcutaneous fatty tissues. No ascites. No soft tiss ue hematoma or acute hemorrhage seen. No mass or bulky lymphadenopathy. Disc and bony degenerative changes are present. No clearly pathologic bone process seen. IMPRESSION: Double pigtail stent is in place in the left collecting system. No renal or perinephric hemorrhage. The obstructing UPJ stone 10 mm in size is still present. Urinary bladder is fully contracted around a Huntley catheter limiting assessment of any hemorrhage wit hin the bladder lumen. No soft tissue hematoma or evidence for acute bleeding. Pancreatic duct dilatation in the head. No mass identified. Stones can be occult. Biliary tree is not dilated though the patient does have cholelithiasis. Correlation is needed with any evidence for bustillos creatic duct or biliary tree duct obstructive process.
--- NOTE | 2019-08-08 12:47 | ER ---
Nurse's Notes [facility] Name: Lizette Evans Age: 88 yrs Sex: Female : 1930 Arrival Date: 08/01/2019 Time: 21:14 Bed 8 Private MD: Diagnosis: Severe sepsis without septic shock;Cystitis, unspecified without hematuria Presentation: 07/31 21:15 Chief complaint: EMS states: patient developed fever and is complaining of generalized rv weakness. patient is living with a positive covid patient. 21:15 Coronavirus screen: Surgical mask placed on patient. Patient moved to private room, rv placed in contact and droplet isolation with eye protection until further assessment. Patient reports a cough. Patient reports a measured and/or subjective temperature greater than 100.4F. Patient reports contact with known and/or suspected case of COVID-19. Ebola Screen: No symptoms or risks identified at this time. Initial Sepsis Screen: Does the patient meet any 2 criteria? RR > 20 per min. Temp <36.0*C (96.8*F)) or > 38.3*C (100.9*F). HR > 90 bpm. Initial Sepsis Screen: Does the patient have a suspected source of infection? Yes: Productive cough/pneumonia. Risk Assessment: Do you want to hurt yourself or someone else? Patient reports no desire to harm self or others. Onset of symptoms is unknown. 21:15 Acuity: ERICKA 2 rv Triage Assessment: 21:43 General: Appears ill, Behavior is calm, cooperative. EENT: No signs and/or symptoms rv were reported regarding the EENT system. Neuro: Level of Consciousness is awake, confused, Oriented to person. Cardiovascular: Patient's skin is warm and dry. Rhythm is sinus rhythm. Respiratory: Airway is patent Respiratory effort is even, unlabored, Breath sounds are coarse bilaterally. GI: No signs and/or symptoms were reported involving the gastrointestinal system. GI: No signs and/or symptoms were reported involving the gastrointestinal system. Derm: Skin with poor turgor. Historical: - Allergies: 21:43 PENICILLINS; rv 22:33 Nitrofurantoin; sg - Home Meds: 08/01 00:02 FeroSul 325 mg (65 mg iron) oral tab daily [Active]; Eliquis 2.5 mg oral tab 1 tab 2 ea times per day [Active]; lamotrigine 150 mg oral tab 1 tab 2 times per day [Active]; galantamine 4 mg Oral tab 1 tab daily [Active]; buspirone 10 mg Oral tab 1 tab 2 times per day [Active]; tolterodine 2 mg Oral tab 1 tab 2 times per day [Active]; escitalopram oxalate 10 mg Oral tab 1 tab once daily [Active]; furosemide 40 mg Oral tab 1.5 tab once daily [Active]; levetiracetam 750 mg Oral tab 1 tab every morning [Active]; Risperdal 0.5 mg Oral tab 1 tab nightly [Active]; atenolol 50 mg Oral tab 1 tab once daily [Active]; amlodipine 10 mg tab 1 tab once daily [Active]; potassium chloride 10 mEq Oral cpER 1 cap once daily [Active]; - PMHx: 07/31 21:43 ADD/ADHD; Atrial Fib; CVA; DVT; Hypertension; Seizures; TIA; rv - PSHx: 21:43 Unable to obtain; rv - Immunization history:: Adult Immunizations up to date. - Social history:: Smoking status: unknown Patient/guardian denies using alcohol, street drugs, The patient lives with family. Screenin:52 Abuse screen: confused. Nutritional screening: No deficits noted. Tuberculosis ea screening: No symptoms or risk factors identified. Fall Risk No fall in past 12 months (0 pts). Secondary diagnosis (15 points) confused. IV access (20 points). Ambulatory Aid- None/Bed Rest/Nurse Assist (0 pts). Gait- Weak (10 pts.). Mental Status- Overestimates/Forgets Limitations (15 pts.). Total Vega Fall Scale indicates High Risk Score (45 or more points). Fall prevention measures have been instituted. Side Rails Up X 2 Frequent Obs/Assessments Occuring As available patient and family educated on Fall Prevention Program and Strategies. Assessment: 21:30 General: Appears uncomfortable, Behavior is cooperative, drowsy. Pain: Unable to use ea pain scale. FLACC scale score is 3 out of 10. Neuro: Level of Consciousness is confused, Oriented to none. Respiratory: Airway is patent Respiratory effort is even, unlabored, Respiratory pattern is regular, tachypnea. Derm: Skin is fragile, Skin is dry, Skin is normal, Skin temperature is warm. 22:30 Reassessment: Pt resting with eyes closed, respiration rate improved. Pt is confused, ea is able to follow some commands. 23:20 Reassessment: Pt returned from CT. Pt resting with eyes closed, respirations even and ea unlabored. Chest expansions even and symmetrical. 08/01 00:03 Reassessment: Patient and/or family updated on plan of care and expected duration. Pain ea level reassessed. Pt resting with eyes closed, respirations even and unlabored. Chest expansions even and symmetrical. No s/s of pain or discomfort noted at this time. 01:08 Reassessment: Patient and/or family updated on plan of care and expected duration. Pain ea level reassessed. Pt awake, alert and oriented to self. Pt denies pain at this time. 01:48 Reassessment: Patient and/or family updated on plan of care and expected duration. Pain ea level reassessed. Pt alert and oriented to self. Pt admitted to fourth floor, per tech, pt tolerating well. No s/s of pain or discomfort noted at this time. Vital Signs: 07/31 21:15 BP 87 / 34; Pulse 81; Resp 27; Temp 103; Pulse Ox 96% on R/A; ea 21:36 Weight 81.65 kg; rv 22:37 BP 88 / 44; Pulse 79; Resp 22; Pulse Ox 98% on 2 lpm NC; ea 22:56 BP 92 / 53; Pulse 79; Resp 21; Temp 100.2(O); Pulse Ox 100% on 2 lpm NC; rv 23:06 Temp 100.2(O); rv 23:56 BP 100 / 50; Pulse 73; Resp 22; Pulse Ox 99% on 2 lpm NC; ea 08/01 00:28 BP 103 / 51; Pulse 74; Resp 23; Pulse Ox 99% on R/A; ea 01:10 BP 105 / 87; Pulse 73; Resp 20; Temp 97.6(O); Pulse Ox 100% on R/A; ea ED Course: 07/31 21:14 Patient arrived in ED. ma2 21:16 Peg Castelan MD is Attending Physician. ma2 21:42 Triage completed. rv 21:43 Arm band placed on Patient placed in the treatment room, on a stretcher, on cardiac rv monitor, on pulse oximetry, Patient notified of wait time. EKG completed in triage. Results shown to MD. 21:53 Patient has correct armband on for positive identification. pest control service technician on. Pulse ea ox on. NIBP on. 21:58 Chest Single View XRAY In Process Unspecified. EDMS 22:13 Phillip Laurent, RN is Primary Nurse. rv 22:56 Inserted midline power glide 20G x 10cm, right upper arm. rv 23:30 CT Head Brain wo Cont In Process Unspecified. EDMS 23:38 Virginia Lu MD is Hospitalizing Provider. ma2 23:54 No provider procedures requiring assistance completed. Patient admitted, IV remains in ea place. Administered Medications: 21:25 Drug: NS 0.9% (30 ml/kg) 30 ml/kg Route: IV; Rate: bolus; Site: right forearm; rv 23:07 Follow up: IV Status: Completed infusion; IV Intake: 2500ml rv 22:00 Drug: Rocephin 1 grams Route: IV; Rate: calculated rate; Site: right forearm; rv 23:53 Follow up: Response: No adverse reaction; IV Status: Completed infusion ea 22:12 Drug: Tylenol Suppository 650 mg Route: [place]; rv 23:06 Follow up: Temp 100.2 Oral; Response: Temperature is decreased rv 23:43 Drug: vancoMYCIN 1 grams Route: IVPB; Infused Over: 2 hrs; Site: right upper arm; rv 08/01 01:29 Follow up: Response: No adverse reaction; IV Status: Completed infusion; IV Intake: ea 250ml Intake: 07/31 23:07 IV: 2500ml; Total: 2500ml. rv 08/01 01:29 IV: 250ml; Total: 2750ml. ea Outcome: 07/31 23:39 Decision to Hospitalize by Provider. ma2 23:54 Instructed on Family Katelin notified of admission (daughter) [phone] 08/01 01:47 Admitted to Med/surg accompanied by tech, room 414, with chart, Report called to fredrick Allan RN Condition: stable 01:49 Patient left the ED. ea Signatures: Dispatcher [employer] Krishna Reyes, RN Mary Santiago RN Peg Herrera ea, MD MD fl2 Mehran, Phillip, RN RN rv
--- NOTE | 2019-08-08 12:47 | EDPHYS ---
Physician Documentation [facility] Name: Lizette Evans Age: 88 yrs Sex: Female : 1930 Arrival Date: 08/01/2019 Time: 21:14 Bed 8 Private MD: ED Physician Peg Castelan HPI: 07/31 23:35 This 88 yrs old Black Female presents to ER via Unassigned with complaints of Fever, ma2 General Weakness. 23:35 The patient presents with confusion, decreased mental status. Onset: The ma2 symptoms/episode began/occurred gradually, 1 day(s) ago. Associated signs and symptoms: Pertinent negatives: ataxia, chest pain, confusion, diarrhea, dizziness. The patient reports fever, with an emergency department temperature of 103 degrees Fahrenheit. Associated signs and symptoms: Pertinent negatives: abdominal pain, backache, chest pain, diarrhea, nausea, night sweats, sinus congestion. Severity of symptoms: At their worst the symptoms were moderate in the emergency department the symptoms are unchanged. The patient has experienced a previous episode. Historical: - Allergies: 21:43 PENICILLINS; rv 22:33 Nitrofurantoin; sg - Home Meds: 08/01 00:02 FeroSul 325 mg (65 mg iron) oral tab daily [Active]; Eliquis 2.5 mg oral tab 1 tab 2 ea times per day [Active]; lamotrigine 150 mg oral tab 1 tab 2 times per day [Active]; galantamine 4 mg Oral tab 1 tab daily [Active]; buspirone 10 mg Oral tab 1 tab 2 times per day [Active]; tolterodine 2 mg Oral tab 1 tab 2 times per day [Active]; escitalopram oxalate 10 mg Oral tab 1 tab once daily [Active]; furosemide 40 mg Oral tab 1.5 tab once daily [Active]; levetiracetam 750 mg Oral tab 1 tab every morning [Active]; Risperdal 0.5 mg Oral tab 1 tab nightly [Active]; atenolol 50 mg Oral tab 1 tab once daily [Active]; amlodipine 10 mg tab 1 tab once daily [Active]; potassium chloride 10 mEq Oral cpER 1 cap once daily [Active]; - PMHx: 07/31 21:43 ADD/ADHD; Atrial Fib; CVA; DVT; Hypertension; Seizures; TIA; rv - PSHx: 21:43 Unable to obtain; rv - Immunization history:: Adult Immunizations up to date. - Social history:: Smoking status: unknown Patient/guardian denies using alcohol, street drugs, The patient lives with family. ROS: 23:35 Constitutional: Negative for fever, chills, and weight loss. ma2 23:35 All other systems are negative. 23:35 Unable to obtain ROS due to altered mental status. Exam: 23:35 Eyes: Pupils equal round and reactive to light, extra-ocular motions intact. Lids and ma2 lashes normal. Conjunctiva and sclera are non-icteric and not injected. Cornea within normal limits. Periorbital areas with no swelling, redness, or edema. ENT: Nares patent. No nasal discharge, no septal abnormalities noted. Tympanic membranes are normal and external auditory canals are clear. Oropharynx with no redness, swelling, or masses, exudates, or evidence of obstruction, uvula midline. Mucous membranes moist. Neck: Trachea midline, no thyromegaly or masses palpated, and no cervical lymphadenopathy. Supple, full range of motion without nuchal rigidity, or vertebral point tenderness. No Meningismus. Chest/axilla: Normal chest wall appearance and motion. Nontender with no deformity. No lesions are appreciated. Cardiovascular: Regular rate and rhythm with a normal S1 and S2. No gallops, murmurs, or rubs. Normal PMI, no JVD. No pulse deficits. Respiratory: Lungs have equal breath sounds bilaterally, clear to auscultation and percussion. No rales, rhonchi or wheezes noted. No increased work of breathing, no retractions or nasal flaring. Abdomen/GI: Soft, non-tender, with normal bowel sounds. No distension or tympany. No guarding or rebound. No evidence of tenderness throughout. 23:35 Constitutional: The patient appears lethargic, obviously ill. 23:35 Neuro: Orientation: unable to test, ams. she is arousable to verbal stimuli, moving all extremities. Vital Signs: 21:15 BP 87 / 34; Pulse 81; Resp 27; Temp 103; Pulse Ox 96% on R/A; ea 21:36 Weight 81.65 kg; rv 22:37 BP 88 / 44; Pulse 79; Resp 22; Pulse Ox 98% on 2 lpm NC; ea 22:56 BP 92 / 53; Pulse 79; Resp 21; Temp 100.2(O); Pulse Ox 100% on 2 lpm NC; rv 23:06 Temp 100.2(O); rv 23:56 BP 100 / 50; Pulse 73; Resp 22; Pulse Ox 99% on 2 lpm NC; ea 08/01 00:28 BP 103 / 51; Pulse 74; Resp 23; Pulse Ox 99% on R/A; ea 01:10 BP 105 / 87; Pulse 73; Resp 20; Temp 97.6(O); Pulse Ox 100% on R/A; ea MDM: 07/31 21:16 Patient medically screened. [facility] 23:35 Differential diagnosis: viral Infection, bacterial infection, URI, bronchitis, ma2 pneumonia UTI, gastroenteritis. Differential Diagnosis: hypoglycemia, meningitis, overdose, seizure, volume depletion. Data reviewed: vital signs, nurses notes. Post IV fluid administration reassessment for Sepsis: Sepsis focused reassessment complete. Focused assessment performed: August 01, 2019 at 23:37 Heart: Regular rate/rhythm. Lungs: noted to be clear bilaterally. Capillary refill examination performed. Capillary refill noted to be brisk. Peripheral pulse evaluation performed. Radial Peripheral pulses noted to be 3+ normal. Skin examination performed. Skin noted to be flushed. Current patient vital signs reviewed: Yes. Passive leg raise examination performed. Neuro: Patient's neurological exam has improved from previous exam. Cardio: Cardiovascular exam improved from previous exam. Heart rate and blood pressure have improved. Respiratory: Respiratory exam improved from previous exam. Counseling: I had a detailed discussion with the patient and/or guardian regarding: the historical points, exam findings, and any diagnostic results supporting the discharge/admit diagnosis, the presence of at least one elevated blood pressure reading (>120/80) during this emergency department visit, the need for further work-up and treatment in the hospital. 07/31 21:20 Order name: Urine Culture [facility] 07/31 21:20 Order name: Amylase, Serum; Complete Time: 23:31 [facility] 07/31 21:20 Order name: Basic Metabolic Panel; Complete Time: 23:31 [facility] 07/31 21:20 Order name: Blood Culture Adult (2) [facility] 07/31 21:20 Order name: CBC with Diff; Complete Time: 23:31 [facility] 07/31 21:20 Order name: Ckmb; Complete Time: : [facility] 07/31 21:20 Order name: CPK; Complete Time: : [facility] 07/31 21:20 Order name: Lactate; Complete Time: : [facility] 07/31 21:20 Order name: LFT's; Complete Time: : [facility] 07/31 21:20 Order name: Lipase; Complete Time: : [facility] 07/31 21:20 Order name: Procalcitonin; Complete Time: : [facility] 07/31 21:20 Order name: Protime (+inr); Complete Time: : [facility] 07/31 21:20 Order name: Ptt, Activated; Complete Time: : [facility] 07/31 21:20 Order name: Troponin (emerg Dept Use Only); Complete Time: : [facility] 07/31 21:20 Order name: Urine Microscopic Only; Complete Time: : [facility] 07/31 21:20 Order name: Chest Single View XRAY; Complete Time: : [facility] 07/31 21:20 Order name: Flu; Complete Time: : [facility] 07/31 21:20 Order name: COVID-19 [facility] 07/31 21:20 Order name: Strep; Complete Time: : [facility] 07/31 21:55 Order name: Manual Differential; Complete Time: : [facility] 07/31 22:05 Order name: Throat Culture [facility] 07/31 22:31 Order name: CT Head Brain wo Cont [facility] 08/01 01:00 Order name: CBC with Automated Diff [facility] 08/01 01:00 Order name: CBC with Automated Diff [facility] 08/01 01:00 Order name: Comprehensive Metabolic Panel [facility] 08/01 01:00 Order name: Comprehensive Metabolic Panel [facility] 08/01 01:00 Order name: Protime (+INR) [facility] 08/01 01:00 Order name: Protime (+INR) [facility] 07/31 21:20 Order name: Accucheck; Complete Time: 23:08 [facility] 07/31 21:20 Order name: Cardiac monitoring; Complete Time: 22:10 [facility] 07/31 21:20 Order name: EKG - Nurse/Tech; Complete Time: 22:10 [facility] 07/31 21:20 Order name: IV Saline Lock - Large Bore; Complete Time: 22:10 [facility] 07/31 21:20 Order name: Labs collected and sent; Complete Time: 22:11 [facility] 07/31 21:20 Order name: O2 Per Protocol; Complete Time: 22:11 [facility] 07/31 21:20 Order name: O2 Sat Monitoring; Complete Time: 22:11 [facility] 07/31 21:20 Order name: Urine Dipstick-Ancillary (obtain specimen); Complete Time: 22:09 [facility] 07/31 21:20 Order name: Droplet/Contact Precautions; Complete Time: 22:13 [facility] 08/01 00:58 Order name: CONS Pharmacy Consult [facility] 08/01 00:58 Order name: CONS Physician Consult [facility] 08/01 00:59 Order name: Full Liquid EDDE Administered Medications: 21:25 Drug: NS 0.9% (30 ml/kg) 30 ml/kg Route: IV; Rate: bolus; Site: right forearm; rv 23:07 Follow up: IV Status: Completed infusion; IV Intake: 2500ml rv 22:00 Drug: Rocephin 1 grams Route: IV; Rate: calculated rate; Site: right forearm; rv 23:53 Follow up: Response: No adverse reaction; IV Status: Completed infusion ea 22:12 Drug: Tylenol Suppository 650 mg Route: [place]; rv 23:06 Follow up: Temp 100.2 Oral; Response: Temperature is decreased rv 23:43 Drug: vancoMYCIN 1 grams Route: IVPB; Infused Over: 2 hrs; Site: right upper arm; rv 08/01 01:29 Follow up: Response: No adverse reaction; IV Status: Completed infusion; IV Intake: ea 250ml Disposition: 07/31 23:35 Critical Care:. ma2 Disposition: 08/01/19 23:39 Hospitalization ordered by Virginia Lu for Inpatient Admission. Preliminary diagnosis are Severe sepsis without septic shock, Cystitis, unspecified without hematuria. - Bed requested for Telemetry/MedSurg (Inpatient). - Status is Inpatient Admission. ea - Condition is Stable. - Problem is new. - Symptoms are unchanged. Critical care time excluding procedures: 23:35 Critical care time: Bedside Care: 20 minutes, Consultation: 10 minutes, Family ma2 Intervention: 5 minutes. Total time: 35 minutes Signatures: Dispatcher [employer] EDDE Ashley Alonso RN RN Krishna Thompson RN ALIYA Mary Griffin RN RN ea Alzahri, Mohammad, MD MD [facility] Phillip Laurent RN ALIYA rv Corrections: (The following items were deleted from the chart) 08/01 00:56 07/31 23:39 Hospitalization Ordered by Virginia Lu MD for Inpatient Admission. Preliminary diagnosis is Severe sepsis without septic shock; Cystitis, unspecified without hematuria. Bed requested for Telemetry/MedSurg (Inpatient). Status is Inpatient Admission. Condition is Stable. Problem is new. Symptoms are unchanged. [facility] 08/01 01:49 00:56 08/01/2019 23:39 Hospitalization Ordered by Virginia Lu MD for Inpatient ea Admission. Preliminary diagnosis is Severe sepsis without septic shock; Cystitis, unspecified without hematuria. Bed requested for Telemetry/MedSurg (Inpatient). Status is Inpatient Admission. Condition is Stable. Problem is new. Symptoms are unchanged.
--- NOTE | 2019-08-08 16:00 | PN ---
Date of Progress Note: 08/08/2019 Subjective: Patient seen and examined. Chart reviewed and case discussed with RN. Patient still so mewhat confused, slightly better than yesterday. Medications List: Reviewed. Physical Examination: Vital Signs: Temperature 97.5, heart rate 75, blood pressure 145/65, respirations 16, O2 95% on room air. General: Awake, alert, oriented x2, not in any acute distress, elderly female. CV: S1, S2. Regular rate and rhythm. Peripheral pulses present. Respiratory: Diminished breath sounds at the bases. No wheezing or stridor. No use of accessory mu scles. Gastrointestinal: Abdomen is soft, nontender, nondistended. Positive bowel sounds. No guarding or rigidity. Extremities: No clubbing, cyanosis. Patient has some pedal edema. Skin: Patient has dry lower extremity skin and excoriations. Neurologic: Nonfocal. Patient has generalized weakness and decreased strength in the bilateral lowe r extremities. Laboratory Data: Sodium 144, potassium 3.8, chloride 114, CO2 of 22, BUN 20, creatinine 0.98, glucos e 92, calcium 8.1. WBC 13, H and H 7.7 and 24.4, platelets 159, neutrophils 75%. Blood cultures, Ps eudomonas and Proteus. Urine culture growing Proteus. Abdomen and pelvis CT scan shows a double pig tail stent in place in the left collecting system. No renal or perinephric hemorrhage, obstructing U PJ stone 10 mm size is still present. Urinary bladder is fully contracted. No soft tissue hematoma or evidence of acute bleeding. Pancreatic duct dilatation in the head. No mass identified. Stones can be occult. Biliary tree is not dilated, though the patient does have cholelithiasis. Assessment: An 88-year-old female with: 1.Sepsis with shock, improved. Blood pressure better. Continue antibiotics secondary to bacteremia and urinary tract infection. Cultures positive for Proteus and Pseudomonas both in the blood and Pr oteus in the urine. 2.Bacteremia secondary to Proteus and Pseudomonas. Infectious Disease on board. Continue cefepime. Patient will likely need long-term IV antibiotics. Repeat blood cultures are negative to date. 3.Acute cystitis without hematuria secondary to Proteus. We will continue cefepime. 4.Acute kidney injury. Creatinine is normalized. Appreciate Nephrology input. Avoid NSAIDs and ne phrotoxins. Continue to monitor creatinine level. 5.Left ureteropelvic junction stone with pus in the left kidney, status post stent placement by Dr. Bustillos. Will need stone retrieval in a couple weeks. 6.Hydronephrosis secondary to above, improving. 7.Acute metabolic encephalopathy, likely secondary to sepsis, bacteremia, and hypotension, still héctor ewhat confused. Neurology evaluation. 8.Atrial fibrillation, controlled ventricular rate. Continue rate control and anticoagulation. 9.Anemia may be secondary to blood thinners. CT scan of the abdomen was done to rule out any retrop eritoneal bleed negative. 10.Generalized weakness, nonambulatory at baseline. We will continue PT for in bed exercises. Uses wheelchair at home. 11.History of seizure disorder. Continue Keppra. No episodes currently. 12.Dysphagia. Continue pureed diet. 13.Deep venous thrombosis prophylaxis. Continue Eliquis. Plan: Patient will likely need placement for IV antibiotics and due to rehab, Neurology evaluation. Follow up on H and H, stool occult. /ALEXX Voice ID: [id number] Report ID: [id number]
--- NOTE | 2019-08-08 19:25 | RAD REPORT ---
EXAM DESCRIPTION: MRI - Brain W/Wo Cont - 08/08/2019 6:38 pm CLINICAL HISTORY: CVA Headache, drowsiness, CVA symptomology COMPARISON: MRA Head Wo Cont dated 08/08/2019 TECHNIQUE: Multi-sequence, multiplanar MR imaging of the brain was performed with contrast. FINDINGS: No intracranial hemorrhage, hydrocephalus, or extra-axial fluid collection.Moderate genera lized brain atrophy is present with advanced periventricular and deep white matter chronic microvascu lar ischemic changes. No edema or shift of midline structures. No intracranial mass. DWI is negative for acute CVA. The midline structures are normally formed. Mastoid air cells and paranasal sinuses are clear. Post-contrast images show no abnormal enhancement to suggest tumor or infection. IMPRESSION: Negative for acute CVA or other acute intracranial process.
--- NOTE | 2019-08-08 19:35 | RAD REPORT ---
EXAM DESCRIPTION: MRI - MRA Head Wo Cont - 08/08/2019 6:17 pm CLINICAL HISTORY: r/o cva CVA COMPARISON: Head Brain Wo Cont dated 08/01/2019 FINDINGS: 3D noncontrast [id number] MR angiography of the [place] was performed. No aneurysm, flow-limiting stenosis or vascular malformation is seen. Forward flow seen in codominant vertebral arteries. The visualized dural venous sinuses appear patent. IMPRESSION: No significant flow abnormality of the [place] is identified.
--- NOTE | 2019-08-08 19:38 | RAD REPORT ---
EXAM DESCRIPTION: MRI - MRA Neck W/Wo Cont - 08/08/2019 6:38 pm CLINICAL HISTORY: CVA Headache, drowsiness, CVA symptomology COMPARISON: No comparisons FINDINGS: Contrast enhance 2D [id number] MR angiography of the neck vessels was performed. A left aortic arch is noted. Both common carotid arteries and subclavian arteries are widely patent. No significant internal carotid artery stenosis is seen. Narrowing is present at the origin of both e xternal carotid arteries. Antegrade flow seen in both vertebral arteries. IMPRESSION: No significant internal carotid artery stenosis is identified.
[2019-08-08] MEDS: LEVETIRACETAM PO SCH (21:00)
--- NOTE | 2019-08-08 21:08 | CON ---
Date of Consultation: 08/08/2019 Time: 1600 Reason For Consultation: Altered mental status. History: This is an 88-year-old lady with a history of prior stroke, [facility] to the fact that she tends to go into partial seizures fairly easily, atrial fibrillation , chronic renal insufficiency, brought to the emergency department on the with lethargy, confusi on, fever, relative hypotension with blood pressures systolic in the 80s. Workup revealed bacterial sepsis from the urinary tract with hydronephrosis. White count on admission 21,000; 16% bands, creat inine 3, procalcitonin 85. She is doing better. Creatinine is down to 0.98. White count is 13, but now plagued with anemia with a hemoglobin of 7.7, 9.[address] scan of the brain on admission atrophy, chronic ischemic change, no acute intracranial abnormalities. The patient is not back to her baseline, which is she has memory problems, but patient is still somewhat confused. No one has noticed any seizure activity. She is taking her anticonvulsants. She is on Lamictal 150 twice a day. The Keppra has been changed to IV at 750 b.i.d. She does tend to run a little high on t he Keppra level at that dose, but as noted no one has noticed any seizure activity. Given the improv ement in the renal function and the white count and the overall clinical picture with a slight lag in her mentation, consultation was requested. Past Medical History: As alluded to. Medications: Are copious: Allopurinol, Eliquis 2.5 twice daily, atenolol, BuSpar, Sinemet b.i.d. S he is on cefepime, Lexapro, iron, galantamine 4 mg b.i.d., hydralazine, Lamictal 150 b.i.d., Keppra 7 50 IV b.i.d., Cozaar, Zofran, Risperdal. Allergies: PENICILLIN, NITROFURANTOIN. Social History: Patient lives with family. Requires assistance with activities of daily living. No rmally nonambulatory. Review of Systems: General: Chronically ill. Eyes: Negative. Ears, Nose, Throat: Presbycusis. Cardiovascular: Atrial fibrillation. Pulmonary: Negative. GI: As alluded to. : Anemia. Musculoskeletal: Arthralgias. Neurologic: As noted. Psychiatric: Dementia. Endocrine: Negative. Hematologic: Anemia, on Eliquis. Physical Examination: Vital Signs: 97.2, 76, 16, 145/64. General: She is an elderly, female lying in bed, in no distress. She is awake. Ea sily arousable to verbal stimuli. Knows her name. Follows simple 1 and 2 step commands. Does not k now the day or the date. HEENT: Pupils are reactive. Ocular motion is full without nystagmus. Visual marino are full to thr eat. Facial strength and sensation are normal. Tongue protrudes evenly. Soft palate elevates symme trically bilaterally. Extremities: Examination of her extremities reveal greater than 4+ out of 5 throughout. Sensation i ntact to pain. Reflexes 1/4. Toes are neutral. Gait and cerebellar not tested. Pertinent Laboratory Data: As alluded to. Impression: Post stroke epilepsy, altered mental status, likely multifactorial. She does not appear to be in complex partial status currently, although patient has a history of having complex partial status in the past. It has been difficult to control sometimes. Plan: We will check an EEG tomorrow. She has chronic AFib. She is a high risk for stroke. Check b rain MRI. Check Lamictal and Keppra levels in the morning as well. Thank you for the consult. We will continue to follow with you. TENZIN Voice ID: [id number] Report ID: [id number]
[2019-08-08] MEDS: LOSARTAN POTASSIUM 50 MG TABLET PO SCH (22:54)
[2019-08-08] MEDS: RISPERIDONE 0.25 MG TABLET PO SCH (22:57)
[2019-08-09 05:17] LABS: Absolute Lymphocytes (CBC) 1.9 K/uL (0.7-4.9); Basophils % 0.5 % (0-1.3); Hematocrit 24.5 % (36.0-45.0); Lymphocytes % 20.1 % (15.3-44.8); MPV 7.8 fL (7.6-11.3); RBC Red Blood Cell Count 2.54 M/uL (3.86-4.86)
[2019-08-09 05:34] LABS: Potassium 3.6 mmol/L (3.5-5.1)
[2019-08-09] MEDS: ESCITALOPRAM 20 MG TAB PO SCH (08:41)
[2019-08-09] MEDS: FAMOTIDINE 20 MG TAB PO SCH (08:41)
[2019-08-09] MEDS: APIXABAN 2.5 MG TABLET PO SCH ×2 (08:42→21:42)
[2019-08-09] MEDS: allopurinoL 100 MG TAB PO SCH (08:42)
[2019-08-09] MEDS: GALANTAMINE 4 MG TAB PO SCH ×2 (08:42→21:42)
[2019-08-09] MEDS: lamoTRIgine 150 MG TAB PO SCH ×2 (08:42→21:43)
[2019-08-09] MEDS: BUSPIRONE HCL 5 MG TABLET PO SCH ×2 (08:42→21:42)
[2019-08-09] MEDS: CARBIDOPA/LEVODOPA 25/100 TAB PO SCH ×2 (08:43→21:44)
[2019-08-09] MEDS: atenoloL 50 MG TAB PO SCH (08:43)
[2019-08-09] MEDS: levETIRAcetam 750 MG in NA CHLORIDE 0.9% 100 ML IV SCH (08:45)
[2019-08-09] MEDS: JUVEN PACKET PO SCH ×2 (08:46→21:43)
[2019-08-09] MEDS: POTASSIUM CL SA 10 MEQ TAB PO SCH (08:58)
[2019-08-09] MEDS ORDERED: POTASSIUM 25 MEQ EFFERV TAB PO ONE (09:00)
[2019-08-09] MEDS: CEFEPIME/SWI 2gm 2 GM/20 ML SYR IV SCH (09:59)
[2019-08-09 11:00] LABS: Hematocrit 25.5 % (36.0-45.0)
--- NOTE | 2019-08-09 13:19 | P.PN ---
Subjective Date of Service: 08/09/19 Chief Complaint: Respiratory distress Subjective: No new changes, Tolerating diet, Improving Review of Systems General: Unremarkable Eyes: Unremarkable ENT: Unremarkable Respiratory: Unremarkable Cardiovascular: Unremarkable Gastrointestinal: Unremarkable Genitourinary: Unremarkable Musculoskeletal: Unremarkable Integumentary: Unremarkable Neurological: Unremarkable Lymphatics: Unremarkable Physical Examination - Vital Signs Temperature: 97.1 F Blood Pressure: 147/65 Pulse: 71 Respirations: 18 Pulse Ox (%): 98 - Physical Exam General: Alert HEENT: Atraumatic, Normocephalic Neck: Supple Respiratory: Clear to auscultation bilaterally, Normal air movement Cardiovascular: Normal S1 S2 Capillary refill: <2 Seconds Gastrointestinal: Normal bowel sounds, Soft and benign Musculoskeletal: No clubbing Integumentary: No erythema Neurological: Normal tone Assessment & Plan Discharge Plan: Other (nursing home facility) Plan to discharge in: 24 Hours - Code Status/Comfort Care Code Status Assessed: Yes Physician Review: Patient Assessed, Agree with Above Assessment and Plan Physician Review Additional Text: Assessment Sepsis with bacteremia and shock secondary to acute cystitis with left ureteropelvic junction stone with possible kidney status post stent placement Acute kidney injury Acute metabolic encephalopathy Atrial fibrillation, controlled ventricular rate Anemia Generalized weakness History of seizure disorder Dysphagia Deep venous thrombosis prophylaxis Plan Sepsis with bacteremia and shock secondary to acute cystitis with left ureteropelvic junction stone with possible kidney status post stent placement, improved. Blood pressure better. Continue antibiotics secondary to bacteremia and urinary tract infection. Cultures positive for Proteus and Pseudomonas both in the blood and Proteus in the urine. Bacteremia secondary to Proteus and Pseudomonas. Infectious Disease on board. Continue cefepime. Patient will likely need long-term IV antibiotics. Repeat blood cultures are negative to date. Acute kidney injury. Creatinine is normalized. Appreciate Nephrology input. Avoid NSAIDs and nephrotoxins. Continue to monitor creatinine level. Acute metabolic encephalopathy, likely secondary to sepsis, bacteremia, and hypotension, still somewhat confused. Neurology evaluation, patient has had an MRI stroke protocol and in the EEG appreciate further input from the Neurology. Atrial fibrillation, controlled ventricular rate. Continue rate control and anticoagulation. Anemia H&H stable at this time. Will continue to monitor. Generalized weakness, nonambulatory at baseline. We will continue PT for in bed exercises. Uses wheelchair at home. History of seizure disorder. Continue Keppra. No episodes currently. Dysphagia. Continue pureed diet. Deep venous thrombosis prophylaxis. Continue Eliquis. Plan: Patient will likely need placement for IV antibiotics and due to rehab, Neurology evaluation. Critical Care: No Time Spent Managing Pts Care (In Minutes): 55
--- NOTE | 2019-08-09 14:48 | P.PN ---
Date of Service: 08/09/19 Subjective: Patient is an 88 year old female who presents with AMS, lethargy and fever. Patient has history of dementia. Patients daughter lives with her and helps take care of her. Patient found to have UTI and bacteremia which I have been consulted for. Patient examined at bedside, lethargic. Patient had renal stent placed today. Urine and blood cultures positive. Patient has daughter who lives at home with her and able to care for her. Objective: Temp Pulse Resp BP Pulse Ox 97.1 F 71 18 147/65 H 98 08/09/19 13:19 08/09/19 13:19 08/09/19 13:19 08/09/19 13:19 08/09/19 13:19 Labs: Na 142, K 3.6, BUN 14, Creat 0.88, Pro angelica 85.62, WBC 9.3, Hgb 8.1, Hct 25.5 Chest x-ray 07/31: Pulmonary edema Vs. Pneumonia Chest x-ray 08/01: Negative Abd CT 08/03: 15mm Calculus left UPJ and Left hydronephrosis ROS: General: lethargic CV: S1,S2 RESP: good breath sounds ABD: round, soft, bowel sounds present : Huntley catheter with dark urine Extremities: no edema Assessment and plan: Leukocytosis secondary to UTI and bacteremia Urine culture positive for Proteus Mirabilis Blood cultures positive for Proteus Mirabilis and Pseudomonas Aeruinosa Recommend to continue Maxipime Patient will need 2 weeks of antibiotics from negative blood cultures on 08/03 Pro angelica malnourished, MBS done and recommended Puree diet Patient would benefit from LTAC facility for IV antibiotics Will continue to monitor Patient discussed with Dr. Katz
[2019-08-09] MEDS: LOSARTAN POTASSIUM 50 MG TABLET PO SCH (21:42)
[2019-08-09] MEDS: ENSURE HIGH PROTEIN 237 ML CAN PO SCH (21:43)
[2019-08-09] MEDS: RISPERIDONE 0.25 MG TABLET PO SCH (21:44)
[2019-08-09] MEDS: levETIRAcetam 500 MG TAB PO SCH (21:50)
--- NOTE | 2019-08-09 23:27 | PN ---
Date of Progress Note: 08/09/2019 Time: 1914. Reason: Altered mental status, seizures. Interval History: Patient is stable, arousable to verbal stimuli. I think it just may take some red e for her to improve back to baseline, which is debilitated. Anticonvulsant level is pending. EEG; generalized slowing, 8 Hz, but no epileptiform abnormalities. Physical Examination: She is awake, easily arousable, tangential, somewhat confused. Thought the IV pole was a door. Pupi ls reactive. Ocular motion full. Rodriguez full. Follow commands. Strength greater than 4+. Sensati on intact. Reflexes symmetric. Toes downgoing. Pertinent Laboratory Data: EEG is noted. Brain MRI; no acute stroke, no large vessel stenosis. Hem oglobin is 8.1, white count is 9.3. Creatinine is 0.88. Impression: 1.Complex partial seizures. 2.Dementia. Plan: We will decrease the Keppra to 500 p.o. b.i.d. It may be contributing to some of the sedation as noted. Historically, the Keppra level at that dose was felt to be high. We will continue to fol low with you. GLEN/ALEXX Voice ID: [id number] Report ID: [id number]
[2019-08-10] MEDS: NACHLORIDE 0.45% 1,000 ML IV SCH (03:26)
[2019-08-10 05:53] LABS: Potassium 3.2 mmol/L (3.5-5.1)
[2019-08-10] MEDS: KCL 20 MEQ/100 mL IVPB 20 MEQ/100 ML BAG IV SCH ×2 (07:46→09:56)
[2019-08-10] MEDS: FERROUS SULFATE 325 MG TAB PO SCH (08:12)
[2019-08-10] MEDS: lamoTRIgine 150 MG TAB PO SCH ×2 (08:12→21:20)
[2019-08-10] MEDS: ESCITALOPRAM 20 MG TAB PO SCH (08:12)
[2019-08-10] MEDS: GALANTAMINE 4 MG TAB PO SCH ×2 (08:12→21:20)
[2019-08-10] MEDS: allopurinoL 100 MG TAB PO SCH (08:12)
[2019-08-10] MEDS: JUVEN PACKET PO SCH ×2 (08:13→21:15)
[2019-08-10] MEDS: FAMOTIDINE 20 MG TAB PO SCH (08:13)
[2019-08-10] MEDS: levETIRAcetam 500 MG TAB PO SCH ×2 (08:13→21:20)
[2019-08-10] MEDS: CARBIDOPA/LEVODOPA 25/100 TAB PO SCH ×2 (08:13→21:20)
[2019-08-10] MEDS: APIXABAN 2.5 MG TABLET PO SCH ×2 (08:13→21:20)
[2019-08-10] MEDS: BUSPIRONE HCL 5 MG TABLET PO SCH ×2 (08:13→21:20)
[2019-08-10] MEDS: ENSURE HIGH PROTEIN 237 ML CAN PO SCH ×2 (08:14→21:15)
[2019-08-10] MEDS: POTASSIUM CL SA 10 MEQ TAB PO SCH (08:21)
--- NOTE | 2019-08-10 08:30 | EEG ---
CHART: [id number] TEST ID#: [id number] DATE OF STUDY: 08/09/19 THE EEG WAS RECORDED PORTABLE IN THE PATIENT'S ROOM ON A 17 CHANNEL MACHINE. ELECTRODES WERE APPLIED IN THE USUAL MANNER USING THE INTERNATIONAL 10-20 SYSTEM. THE WAKING BACKGROUND RHYTHM IN THIS RECORD CONSISTS OF POORLY DEVELOPED AND POORLY ORGANIZED WAVES OF 8 HZ., MAXIMAL IN THE POSTERIOR HEAD REGIONS WHICH ATTENUATE NORMALLY WITH EYE OPENING. IN DROWSINESS THE BACKGROUND DROPS TO 7 HZ. THERE ARE NO FOCAL OR LATERALIZING FEATURES. NO EPILEPTIFORM ACTIVITY APPEARS. SLEEP DID NOT OCCUR. HYPERVENTILATION WAS NOT PERFORMED. PHOTIC STIMULATION PRODUCED FAIR DRIVING BILATERALLY. IMPRESSION: ABNORMAL EEG BECAUSE OF GENERALIZED SLOWING OF THE BACKGROUND. THE ABOVE SUGGESTS DIFFUSE CEREBRAL DYSFUNCTION.
[2019-08-10] MEDS: atenoloL 50 MG TAB PO SCH (09:57)
[2019-08-10] MEDS: CEFEPIME/SWI 2gm 2 GM/20 ML SYR IV SCH (09:58)
--- NOTE | 2019-08-10 15:16 | RAD REPORT ---
EXAM DESCRIPTION: RAD - Chest Single View - 08/10/2019 2:57 pm CLINICAL HISTORY: PICC line placement COMPARISON: August 01 FINDINGS: Portable chest was obtained following placement of a right upper extremity PICC line. The catheter tip is in the proximal to mid SVC.
--- NOTE | 2019-08-10 17:06 | P.PN ---
Subjective Date of Service: 08/10/19 Chief Complaint: Respiratory distress Subjective: No new changes Review of Systems Unremarkable General: Unremarkable Eyes: Unremarkable ENT: Unremarkable Respiratory: Unremarkable Cardiovascular: Unremarkable Gastrointestinal: Unremarkable Genitourinary: As per HPI, Unremarkable Musculoskeletal: Unremarkable Integumentary: Unremarkable Physical Examination - Vital Signs Temperature: 97 F Blood Pressure: 146/70 Pulse: 76 Respirations: 20 Pulse Ox (%): 100 - Physical Exam General: Alert, In no apparent distress HEENT: Normocephalic Neck: Supple Respiratory: Clear to auscultation bilaterally, Normal air movement Cardiovascular: Normal S1 S2 Capillary refill: <2 Seconds Gastrointestinal: Normal bowel sounds, Soft and benign Musculoskeletal: No clubbing Integumentary: No significant lesion Neurological: Normal speech Assessment & Plan Discharge Plan: Home Plan to discharge in: 24 Hours Physician Review: Patient Assessed, Agree with Above Assessment and Plan Physician Review Additional Text: Assessment Sepsis with bacteremia and shock secondary to acute cystitis with left ureteropelvic junction stone with possible kidney status post stent placement Acute kidney injury Acute metabolic encephalopathy Atrial fibrillation, controlled ventricular rate Anemia Generalized weakness History of seizure disorder Dysphagia Deep venous thrombosis prophylaxis Plan Sepsis with bacteremia and shock secondary to acute cystitis with left ureteropelvic junction stone with possible kidney status post stent placement, improved. Blood pressure better. Continue antibiotics secondary to bacteremia and urinary tract infection. Cultures positive for Proteus and Pseudomonas both in the blood and Proteus in the urine. Infectious disease consult on the case recommend long-term antibiotics family prefers that the patient receive IV antibiotics at home rather than at nursing facility. Working with social and political studies professor to determine if patient can receive IV antibiotics at home. Plan discharge next 24-48 hr pending approval for home antibiotics. If not improved patient may need halfway facility for IV antibiotics. Acute kidney injury. Creatinine is normalized. Appreciate Nephrology input. Avoid NSAIDs and nephrotoxins. Continue to monitor creatinine level. Acute metabolic encephalopathy, likely secondary to sepsis, bacteremia, and hypotension, still somewhat confused. Patient is more oriented today, appears to be improving. Will continue to monitor. Atrial fibrillation, controlled ventricular rate. Continue rate control and anticoagulation. Anemia H&H stable at this time. Will continue to monitor. Generalized weakness, nonambulatory at baseline. We will continue PT for in bed exercises. Uses wheelchair at home. History of seizure disorder. Continue Keppra. No episodes currently. Dysphagia. Continue pureed diet. Deep venous thrombosis prophylaxis. Continue Eliquis. Critical Care: No Time Spent Managing Pts Care (In Minutes): 55
--- NOTE | 2019-08-10 19:16 | PN ---
Subjective: Patient is lying in bed. No new acute event. Chart reviewed. Objective: Vital Signs: Temperature 97, pulse 70, respirations 16, blood pressure 152/66. Lungs: Re veal few crackles. Heart: S1, S2. Abdomen: Soft, nontender. Bowel sounds present. EXTREMITIES: No edema. Laboratory Data: WBC 9.3, hemoglobin 7.9, platelets 180. Micro data, blood cultures are growing Pse udomonas aeruginosa and Proteus mirabilis. Urine cultures are growing Proteus mirabilis. Proteus mi rabilis is sensitive to everything except quinolones. Pseudomonas sensitive to gentamicin, ceftazidim e, tobramycin, Zosyn, cefepime, meropenem, amikacin. Patient is currently being treated with cefepim e and home medication. Assessment And Plan: Bacteremia secondary to Proteus mirabilis and Pseudomonas aeruginosa, urinary t ract infection. Leukocytosis is improved. Continue antibiotic and supportive care. We will follow the patient as needed. Consider long-term acute care. NF/MODL Voice ID: [id number] Report ID: [id number]
[2019-08-10] MEDS ORDERED: KCL 20 MEQ/100 mL IVPB 20 MEQ/100 ML BAG IV SCH (21:00)
[2019-08-10] MEDS: RISPERIDONE 0.25 MG TABLET PO SCH (21:20)
[2019-08-10] MEDS: LOSARTAN POTASSIUM 50 MG TABLET PO SCH (21:27)
[2019-08-11 05:53] LABS: BUN Blood Urea Nitrogen 17 mg/dL (7-18); Bicarbonate 29 mmol/L (21-32); Glucose Level 82 mg/dL (74-106); Potassium 3.6 mmol/L (3.5-5.1); Sodium Level 142 mmol/L (136-145)
[2019-08-11] MEDS: ENSURE HIGH PROTEIN 237 ML CAN PO SCH (07:47)
[2019-08-11] MEDS: APIXABAN 2.5 MG TABLET PO SCH (07:47)
[2019-08-11] MEDS: ESCITALOPRAM 20 MG TAB PO SCH (07:47)
[2019-08-11] MEDS: GALANTAMINE 4 MG TAB PO SCH (07:47)
[2019-08-11] MEDS: BUSPIRONE HCL 5 MG TABLET PO SCH (07:47)
[2019-08-11] MEDS: allopurinoL 100 MG TAB PO SCH (07:48)
[2019-08-11] MEDS: atenoloL 50 MG TAB PO SCH (07:48)
[2019-08-11] MEDS: POTASSIUM CL SA 10 MEQ TAB PO SCH (07:48)
[2019-08-11] MEDS: lamoTRIgine 150 MG TAB PO SCH (07:48)
[2019-08-11] MEDS: levETIRAcetam 500 MG TAB PO SCH (07:48)
[2019-08-11] MEDS: FERROUS SULFATE 325 MG TAB PO SCH (07:48)
[2019-08-11] MEDS: FAMOTIDINE 20 MG TAB PO SCH (07:48)
[2019-08-11] MEDS: JUVEN PACKET PO SCH (07:49)
[2019-08-11] MEDS: CARBIDOPA/LEVODOPA 25/100 TAB PO SCH (07:49)
[2019-08-11] MEDS: CEFEPIME/SWI 2gm 2 GM/20 ML SYR IV SCH (07:50)
[2019-08-11] MEDS ORDERED: KCL 20 MEQ/100 mL IVPB 20 MEQ/100 ML BAG IV SCH (09:00)
[2019-08-11 09:50] VITALS: O2SAT 96
[2019-08-11 10:06] VITALS: TEMP 97
--- NOTE | 2019-08-11 11:42 | P.DS ---
Admission Date: 08/02/19 Discharge Date: 08/11/19 Primary Care Provider: NATASHA Hightower(Dr. Sosa) Disposition: [place] HOME/HOME HEALTH CARE Discharge Condition: GOOD Reason for Admission: Respiratory distress Consultations: Nephrology-Dr. Soto Infectious disease-Dr. Katz Neurology-Dr. Baxter Urology-Dr. Bustillos Procedures: Renal US: FINDINGS: The right kidney measures 8.2 x 4.2 x 3.9 cm. The left kidney measures 10.4 x 5.8 x 4.1 cm. Cortical thickness is normal in each kidney. There is increased echogenicity in the right renal parenchyma. Pelvis and calyx dilatation noted on the left. A nonobstructing 10 mm calyx or pyramid calcifications present on the left. The left UPJ was not sufficiently visualized to evaluate for any possible stone. A 2.3 centimeter cyst present upper pole of the right kidney. Bladder is too contracted allow assessment. IMPRESSION: Left hydronephrosis is evident with suboptimal visualization. UPJ and ureter were not adequately visualized for possible stone detection. Smaller more echogenic right kidney indicating medical renal disease. No right- sided hydronephrosis. Urology Procedure: Cystoscopy with Stent placement Follow up CT AB: FINDINGS: No suspicious findings in the lung bases. Cardiomegaly is present. Liver and spleen show no suspicious findings. Pancreatic duct is enlarged in the head. No pancreatic parenchymal abnormality identifiable. Gallbladder size is normal. Multiple small stones or collecting in the fundus of the gallbladder. No biliary tree dilatation. Renal function is symmetric. 3 centimeter cyst in the upper pole of the right kidney noted. No pyelonephritis or acute renal parenchymal process seen. Double pigtail stent is in place in the left collecting system. Proximal pigtail is in the upper pole of the right kidney. A 10 millimeter UPJ calculus is still present. No intraparenchymal or perinephric hemorrhage. There is a 12 millimeter stone in the lower pole. Urinary bladder is fully contracted around a Huntley catheter. This precludes ability to accurately assess for any hemorrhage within the urinary bladder. No adrenal abnormalities. Uterus and ovaries show no suspicious findings for age. No dilated bowel loops or bowel wall thickening. Prominent bustillos diverticulosis without diverticulitis. The appendix is normal. Large amount of stool and contrast dilates the rectum to 8 cm. No free air or pneumatosis. Fluid retention is present in the subcutaneous fatty tissues. No ascites. No soft tissue hematoma or acute hemorrhage seen. No mass or bulky lymphadenopathy. Disc and bony degenerative changes are present. No clearly pathologic bone process seen. IMPRESSION: Double pigtail stent is in place in the left collecting system. No renal or perinephric hemorrhage. The obstructing UPJ stone 10 mm in size is still present. Urinary bladder is fully contracted around a Huntley catheter limiting assessment of any hemorrhage within the bladder lumen. No soft tissue hematoma or evidence for acute bleeding. Pancreatic duct dilatation in the head. No mass identified. Stones can be occult. Biliary tree is not dilated though the patient does have cholelithiasis. Correlation is needed with any evidence for pancreatic duct or biliary tree duct obstructive process. ECHO: Ejection fraction 55% LEFT VENTRICULAR WALL MOTION: NORMAL. DOPPLER/COLOR FLOW: AT LEAST MODERATE PULMONARY HYPERTENSION. COMMENTS: NORMAL LEFT VENTRICULAR EJECTION FRACTION 55-60% WITH NORMAL WALL MOTION. DIASTOLIC DYSFUNCTION. MODERATE PULMONARY HYPERTENSION, RIGHT VENTRICULAR SYSTOLIC PRESSURE IS GREATER THAN 50mmHg. MILD MITRAL REGURGITATION, MILD AORTIC INSUFFICIENCY, MILD PULMONIC INSUFFICIENCY, MODERATE TRICUSPID REGURGITATION. MRI Brain: FINDINGS: No intracranial hemorrhage, hydrocephalus, or extra-axial fluid collection.Moderate generalized brain atrophy is present with advanced periventricular and deep white matter chronic microvascular ischemic changes. No edema or shift of midline structures. No intracranial mass. DWI is negative for acute CVA. The midline structures are normally formed. Mastoid air cells and paranasal sinuses are clear. Post-contrast images show no abnormal enhancement to suggest tumor or infection. IMPRESSION: Negative for acute CVA or other acute intracranial process. MRA Brain: COMPARISON: Head Brain Wo Cont dated 08/01/2019 FINDINGS: 3D noncontrast [id number] MR angiography of the [place] was performed. No aneurysm, flow-limiting stenosis or vascular malformation is seen. Forward flow seen in codominant vertebral arteries. The visualized dural venous sinuses appear patent. IMPRESSION: No significant flow abnormality of the [place] is identified. MRA Neck: FINDINGS: Contrast enhance 2D [id number] MR angiography of the neck vessels was performed. A left aortic arch is noted. Both common carotid arteries and subclavian arteries are widely patent. No significant internal carotid artery stenosis is seen. Narrowing is present at the origin of both external carotid arteries. Antegrade flow seen in both vertebral arteries. IMPRESSION: No significant internal carotid artery stenosis is identified. Medical problem list: Acute metabolic encephalopathy secondary to Sepsis with bacteremia and septic shock related to acute cystitis with left obstructing UPJ stone 10 mm/left hydronephrosis status post double pigtail stent placed in the left collecting system, urine culture positive for Proteus, blood culture positive for Pseudomonas and Proteus Acute kidney injury secondary to above Atrial fibrillation, controlled on chronic anti coagulation therapy Chronic diastolic CHF with moderate pulmonary hypertension ejection fraction 55- 60% with noted moderate tricuspid regurgitation Anemia of chronic disease History of post CVA seizure disorder Dysphagia History of dementia History of Parkinson's Hypertension Depression with anxiety Brief History of Present Illness: 80-year-old female with multiple medical problems including atrial fibrillation, chronic diastolic CHF, anemia of chronic disease, post CVA seizure disorder, dementia, Parkinson's anxiety. Patient presented with altered mental status. Patient was found to have septic shock. Patient admitted for further evaluation. Hospital Course: Patient presented with acute metabolic encephalopathy secondary to sepsis with bacteremia and septic shock related to acute cystitis with left obstructing UPJ stone 10 mm in size. Patient also had left hydronephrosis. The course of her stay was complicated. She saw multiple specialists including Nephrology, Urology, Neurology and Infectious Disease. Patient required cystoscopy with double pigtail stent placed to the left collecting system. Patient also had acute renal injury secondary to above. Her condition improved. Patient was found to have the urine culture positive for Proteus and blood culture positive for Pseudomonas and Proteus. Both showed multiple resistance to medications. Infectious Disease was consulted. Sensitivity was noted to cefepime. Patient r equires IV antibiotic therapy for a total of 14 days. PICC line has been placed. At discharge renal function back to baseline. Family preferred patient to go home with IV antibiotic therapy. Arrangements have been made to continue IV antibiotic therapy at home with home health and physical therapy. At discharge patient will continue with cefepime 2 g IV daily for the next 7 days. Recommend to recheck urine and blood culture at that time to monitor resolution. Patient will also continue with Detrol 2 mg 1 pill twice daily. Recommend follow up with urology in 2-4 weeks to further monitor and address. Her stent will need to be removed likely at that time. Will reach out to her PCP to discuss plan of care. Recommend follow up with nephrology in 1-2 weeks to further address and monitor. Will discuss further with nephrology. Patient with atrial fibrillation on chronic anti coagulation therapy, and diastolic CHF with pulmonary hypertension. This has remained stable. At discharge she will continue with Eliquis 2.5 mg 1 pill twice daily, losartan 50 mg daily, and atenolol 50 mg daily. Patient will also continue with Lasix 60 mg daily along with potassium supplementation. Patient may continue with a 1500 cc per day fluid restriction and low-salt diet. Recommend to monitor her weight daily. Recommend follow up with cardiology to further monitor and address. Patient with anemia chronic disease. This has remained stable. At discharge will recommend to increase iron to 325 mg 1 pill twice daily. Recommend to recheck lab-CBC in 2-4 weeks to monitor progress. Patient with history of post CVA seizure disorder. Patient was evaluated by Neurology during the course of her stay. MRI brain, MRA brain/neck were unremarkable. Medications were adjusted. Keppra was adjusted. At discharge she will continue with Lamictal 150 mg 1 pill twice daily and Keppra 500 mg 1 pill twice daily. Patient may follow up with neurology in 2-4 weeks to follow up this hospitalization. Patient with Parkinson's. At discharge she will continue with her regimen of carbidopa levodopa twice daily. Patient with underlying dementia. At discharge she will continue with Galantamine 4 mg 1 pill twice daily. Patient with depression with anxiety. At discharge she will continue with Buspar 10 mg 1 pill twice daily, Lexapro 10 mg daily, and Risperdal 0.5mg 1 pill at bedtime. Further adjustment can be done by her PCP. Patient with GERD. At discharge she will continue with Protonix 40 mg daily. Vital Signs/Physical Exam: Temp Pulse Resp BP Pulse Ox 97 F 72 20 144/65 H 0 L 08/11/19 08:00 08/11/19 08:00 08/11/19 08:00 08/11/19 08:00 08/11/19 08:00 General: Alert, In no apparent distress, Oriented x3, Cooperative HEENT: Atraumatic Neck: Supple Respiratory: Clear to auscultation bilaterally, Normal air movement Cardiovascular: Normal pulses, Regular rate/rhythm Gastrointestinal: Normal bowel sounds, No masses, No rebound, No guarding Musculoskeletal: No tenderness, No warmth Integumentary: No cyanosis Neurological: Normal speech, Normal strength at 5/5 x4 extr, Other (Patient mainly bed-bound) Laboratory Data at Discharge: WBC 9.3 K/uL (4.3-10.9) D 08/09/19 04:29 Hgb 8.1 g/dL (12.0-15.0) L 08/09/19 10:44 Hct 25.5 % (36.0-45.0) L 08/09/19 10:44 Plt Count 180 K/uL (152-406) 08/09/19 04:29 PT 18.8 SECONDS (9.5-12.5) H 08/03/19 04:45 INR 1.61 08/03/19 04:45 APTT 34.8 SECONDS (24.3-36.9) 08/01/19 21:23 Sodium 142 mmol/L (136-145) 08/11/19 04:47 Potassium 3.6 mmol/L (3.5-5.1) 08/11/19 04:47 BUN 17 mg/dL (7-18) 08/11/19 04:47 Creatinine 0.71 mg/dL (0.55-1.3) 08/11/19 04:47 Glucose 82 mg/dL (74-106) 08/11/19 04:47 Total Bilirubin 0.2 mg/dL (0.2-1.0) 08/06/19 05:00 AST 52 U/L (15-37) H 08/06/19 05:00 ALT < 6 U/L (12-78) L 08/06/19 05:00 Alkaline Phosphatase 98 U/L (45-117) 08/06/19 05:00 Amylase 74 U/L (25-115) 08/01/19 21:23 Lipase 35 U/L (73-393) L 08/01/19 21:23 Home Medications: Furosemide 1.5 tab PO DAILY 04/08/18 Losartan Potassium 50 mg PO BEDTIME 04/08/18 Tolterodine Tartrate [Detrol] 1 tab PO BID 04/08/18 allopurinoL [Allopurinol] 2 tab PO DAILY 04/08/18 atenoloL [Atenolol] 50 mg PO DAILY 04/08/18 lamoTRIgine [Lamotrigine] 1 tab PO BID 04/08/18 risperiDONE [Risperidone] 0.5 mg PO BEDTIME 04/08/18 Galantamine HBr [Razadyne] 4 mg PO BID 05/14/18 Potassium Chloride [Micro-K] 10 meq PO DAILY 01/12/19 Buspirone HCl [Buspar] 10 mg PO BID 05/24/19 Escitalopram Oxalate [Lexapro] 10 mg PO DAILY 05/24/19 Pantoprazole Sodium 40 mg PO DAILY 05/24/19 Apixaban [Eliquis *] 2.5 mg PO BID #60 tablet 05/25/19 Carbidopa/Levodopa 25-100 [Sinemet 25-100*] 1 tab PO BID 08/02/19 Ensure High Protein 237 ml PO BID #60 can 08/11/19 Ferrous Sulfate [Ferrous Sulfate*] 1 tab PO BID #60 tab 08/11/19 levETIRAcetam [Keppra*] 500 mg PO BID #60 tab 08/11/19 New Medications: Ensure High Protein 237 ml PO BID #60 can Ferrous Sulfate [Ferrous Sulfate*] 1 tab PO BID #60 tab levETIRAcetam [Keppra*] 500 mg PO BID #60 tab Patient Discharge Instructions: 1. Patient will go home with home health and IV antibiotic therapy. 2. Patient presented with acute metabolic encephalopathy secondary to sepsis with bacteremia and septic shock related to acute cystitis with left obstructing UPJ stone 10 mm in size. Patient also had left hydronephrosis. The course of her stay was complicated. She saw multiple specialists including Nephrology, Urology, Neurology and Infectious Disease. Patient required cystoscopy with double pigtail stent placed to the left collecting system. Patient also had acute renal injury secondary to above. Her condition improved. Patient was found to have the urine culture positive for Proteus and blood culture positive for Pseudomonas and Proteus. Both showed multiple resistance to medications. Infectious Disease was consulted. Sensitivity was noted to cefepime. Patient requires IV antibiotic therapy for a total of 14 days. PICC line has been placed. At discharge renal function back to baseline. Family preferred patient to go home with IV antibiotic t herapy. Arrangements have been made to continue IV antibiotic therapy at home with home health and physical therapy. At discharge patient will continue with cefepime 2 g IV daily for the next 7 days. Recommend to recheck urine and blood culture at that time to monitor resolution. Patient will also continue with Detrol 2 mg 1 pill twice daily. Recommend follow up with urology in 2-4 weeks to further monitor and address. Her stent will need to be removed likely at that time. Will reach out to her PCP to discuss plan of care. Recommend follow up with nephrology in 1-2 weeks to further address and monitor. Will discuss further with nephrology. 3. Patient with atrial fibrillation on chronic anti coagulation therapy, and diastolic CHF with pulmonary hypertension. This has remained stable. At discharge she will continue with Eliquis 2.5 mg 1 pill twice daily, losartan 50 mg daily, and atenolol 50 mg daily. Patient will also continue with Lasix 60 mg daily along with potassium supplementation. Patient may continue with a 1500 cc per day fluid restriction and low-salt diet. Recommend to monitor her weight daily. Recommend follow up with cardiology to further monitor and address. 4. Patient with anemia chronic disease. This has remained stable. At discharge will recommend to increase iron to 325 mg 1 pill twice daily. Recommend to recheck lab-CBC in 2-4 weeks to monitor progress. 5. Patient with history of post CVA seizure disorder. Patient was evaluated by Neurology during the course of her stay. MRI brain, MRA brain/neck were unremarkable. Medications were adjusted. Keppra was adjusted. At discharge she will continue with Lamictal 150 mg 1 pill twice daily and Keppra 500 mg 1 pill twice daily. Patient may follow up with neurology in 2-4 weeks to follow up this hospitalization. 6. Patient with Parkinson's. At discharge she will continue with her regimen of carbidopa levodopa twice daily. 7. Patient with underlying dementia. At discharge she will continue with Galantamine 4 mg 1 pill twice daily. 8. Patient with depression with anxiety. At discharge she will continue with Buspar 10 mg 1 pill twice daily, Lexapro 10 mg daily, and Risperdal 0.5mg 1 pill at bedtime. Further adjustment can be done by her PCP. 9. Patient with GERD. At discharge she will continue with Protonix 40 mg daily. Diet: AHA Activity: Fall precautions Time spent managing pt's care (in minutes): 55
--- NOTE | 2019-08-11 15:19 | P.PN ---
Date of Service: 08/11/19 Subjective: Patient is an 88 year old female who presents with AMS, lethargy and fever. Patient has history of dementia. Patients daughter lives with her and helps take care of her. Patient found to have UTI and bacteremia which I have been consulted for. Patient examined at bedside, more alert. Daughter at bedside. Patient to be di scharged home with HH and PT. Objective: Temp Pulse Resp BP Pulse Ox 97 F 70 20 135/72 97 08/11/19 12:08/11/19 12:08/11/19 12:08/11/19 12:08/11/19 12:00 Labs: Na 142, K 3.6, BUN 147, Creat 0.71 No new CBC available Chest x-ray 07/31: Pulmonary edema Vs. Pneumonia Chest x-ray 08/01: Negative Abd CT 08/03: 15mm Calculus left UPJ and Left hydronephrosis ROS: General: More alert CV: S1,S2 RESP: good breath sounds ABD: round, soft, bowel sounds present : Huntley catheter with blood tinged urine Extremities: no edema Assessment and plan: Leukocytosis secondary to UTI and bacteremia Urine culture positive for Proteus Mirabilis Blood cultures positive for Proteus Mirabilis and Pseudomonas Aeruinosa Recommend to continue Maxipime Patient will need 2 weeks of antibiotics from negative blood cultures on 08/03 Pro angelica malnourished, MBS done and recommended Puree diet Patient lives with daughter, will discharge home with HH and PT Will continue to monitor Patient discussed with Dr. Katz
[2019-08-11 17:29] VITALS: BP 138/59
--- NOTE | 2019-08-16 22:17 | P.PN ---
Subjective Date of Service: 08/16/19 Primary Care Provider: NATASHA Hightower(Dr. Sosa) Chief Complaint: Respiratory distress Subjective: Improving Pt doing well, pretty much ready for discharge. No fevers or chills. Doing well. Daughter by bed side. Answer all questions Review of Systems General: Unremarkable Eyes: Unremarkable ENT: Unremarkable Respiratory: Unremarkable Cardiovascular: Unremarkable Gastrointestinal: Unremarkable Genitourinary: Unremarkable Physical Examination - Vital Signs Temperature: 97 F Blood Pressure: 138/59 Pulse: 76 Respirations: 20 Pulse Ox (%): 98 - Physical Exam General: Alert, Oriented x1 HEENT: Atraumatic, Normocephalic, PERRLA Neck: Supple Respiratory: Clear to auscultation bilaterally Cardiovascular: No edema, Regular rate/rhythm, Normal S1 S2 Capillary refill: <2 Seconds Gastrointestinal: Normal bowel sounds, Soft and benign, Non-distended, No ascites, No tenderness Musculoskeletal: No swelling, No erythema Integumentary: No rashes, No breakdown Neurological: Normal gait, Normal speech Assessment And Plan - Current Problems (Diagnosis) (1) Renal failure (ARF), acute on chronic Status: Acute Plan: 2/2 acute on chronic kidney failure; Improving s/p ureteral stenting; 2.1--->1.6--->1.2--->0.98-->0.86 Acute portion 2/2 prerenal , ATN, obstructive uropathy; completely resolved Consider discontinuing warren cather and assess for post void residuals. Avoid nephrotoxins, nsaids, CT contrasted studies, caution with acei and arb Qualifiers: Acute renal failure type: with other specified pathological lesion Chronic kidney disease stage: stage 3 (moderate) Qualified Code(s): N17.8 - Other acute kidney failure; N18.3 - Chronic kidney disease, stage 3 (moderate) (2) UTI (urinary tract infection) Onset Date: 04/08/18 Status: Acute Plan: Management with antibiotics per primary team. On cefepime. Renally dosed appropriately Qualifiers: Urinary tract infection type: acute cystitis Hematuria presence: without hematuria Qualified Code(s): N30.00 - Acute cystitis without hematuria (3) Hypertension Onset Date: 03/11/17 Status: Chronic Plan: Stable. Currently controlled on atenolol and losartan Pt is renally clear for discharge. Please free to call [phone] if you have any questions Qualifiers: Hypertension type: essential hypertension Qualified Code(s): I10 - Esse ntial (primary) hypertension - Plan Blood pressure and kidney function improved. Daughter by bedside, Gave clinic information for follow up in the outpatient. May follow up in 2-3 weeks post discharge Physician Review: Patient Assessed, Agree with Above Assessment and Plan
== END 2019-08-11 18:44 | disposition home health service (06) | DRG 853 ==
LOC: ER 21:07 → ERHOLD 08-02 01:03 → 4TH 08-02 01:31 → 3RD-ICU 08-02 14:50 → 2ND 08-03 09:22
PROVIDERS: ADMIT Internal Medicine; ATTEND Family Medicine
PROC: BT1F1ZZ Fluoroscopy of Left Kidney, Ureter and Bladder using Low Osmolar Contrast (ICD-10-PCS; 2019-08-05)
PROC: 0T778DZ Dilation of Left Ureter with Intraluminal Device, Via Natural or Artificial Opening Endoscopic (ICD-10-PCS; principal; 2019-08-05 13:45)
PROC: 02HV33Z Insertion of Infusion Device into Superior Vena Cava, Percutaneous Approach (ICD-10-PCS; 2019-08-10)
DX: A41.9 Sepsis, unspecified organism (principal); G93.41 Metabolic encephalopathy; N17.0 Acute kidney failure with tubular necrosis; R65.21 Severe sepsis with septic shock; E46 Unspecified protein-calorie malnutrition; N13.6 Pyonephrosis; E87.0 Hyperosmolality and hypernatremia; G40.209 Localization-related (focal) (partial) symptomatic epilepsy and epileptic syndromes with complex partial seizures, not intractable, without status epilepticus; I48.91 Unspecified atrial fibrillation; Z79.01 Long term (current) use of anticoagulants; Z20.828 Contact with and (suspected) exposure to other viral communicable diseases; R50.9 Fever, unspecified; R05 Cough; Z88.1 Allergy status to other antibiotic agents; Z88.0 Allergy status to penicillin; Z79.899 Other long term (current) drug therapy; I12.9 Hypertensive chronic kidney disease with stage 1 through stage 4 chronic kidney disease, or unspecified chronic kidney disease; I25.10 Atherosclerotic heart disease of native coronary artery without angina pectoris; Z95.5 Presence of coronary angioplasty implant and graft; G20 Parkinson's disease; Z86.718 Personal history of other venous thrombosis and embolism; N13.9 Obstructive and reflux uropathy, unspecified; N18.3 Chronic kidney disease, stage 3 (moderate); E87.6 Hypokalemia; R06.03 Acute respiratory distress; B96.4 Proteus (mirabilis) (morganii) as the cause of diseases classified elsewhere; B96.5 Pseudomonas (aeruginosa) (mallei) (pseudomallei) as the cause of diseases classified elsewhere; Z68.29 Body mass index [BMI] 29.0-29.9, adult; F03.90 Unspecified dementia, unspecified severity, without behavioral disturbance, psychotic disturbance, mood disturbance, and anxiety; R13.10 Dysphagia, unspecified; D64.9 Anemia, unspecified; Z86.73 Personal history of transient ischemic attack (TIA), and cerebral infarction without residual deficits
CPT/HCPCS: 36415; 36569; 51600; 70450; 70544; 70549; 70553; 71045; 74018; 74176; 74177; 74230; 74430; 76377; 76770; 80048; 80053; 80076; 80177; 81015; 82150; 82274; 82550; 82553; 82805; 82947; 83605; 83690; 84132; 84145; 84484; 85014; 85018; 85025; 85610; 85730; 87040; 87070; 87077; 87081; 87086; 87088; 87186; 87205; 87804; 92526; 92610; 92611; 93005; 93306; 94660; 95819; 97110; 97161; 97530; 99285; A9577; J0360; J0692; J0696; J1940; J1953; J2270; J2370; J2704; J2930; J3010; J7030; J7042; J7120; P9047; Q9967; U0002

== ENCOUNTER 2019-08-17 12:44 | Emergency (ER) | payer OTHER ==
--- OUTSIDE RECORDS SUMMARY | 2019-08-17 12:47 | XMS REPORT | Clinical Summary ---
:1930 Author Organization [facility] Address [address] [place] [address] Care Team Providers Name Role Phone Sharpless Primary Care Provider Unavailable Allergies Active Allergy Reactions Severity Noted Date Comments Penicillins Other (See Comments) High 09/22/2015 Unknown reaction Medications Medication Sig Dispensed Refills Start Date End Date Status tolterodine (DETROL) 2 Take 2 mg by 0 Active MG tabletIndications: mouth 2 (two) urinary urgency, or the times daily. sudden urge to urinate allopurinol (ZYLOPRIM) Take 200 mg by 0 Active 100 MG mouth daily . tabletIndications: a type of joint disorder due to excess uric acid in the blood called gout rivaroxaban (XARELTO) 20 Take 20 mg [...] extremity 09/23/2015 Status epilepticus 09/23/2015 Seizure 09/22/2015 Encounters Date Type Specialty Care Team Description 08/02/2019 Lab Requisition Lab after 08/16/2018 Social History Tobacco Use Types Packs/Day Years Used Date Never Smoker Alcohol Use Drinks/Week oz/Week Comments No Sex Assigned at Date Recorded Not on file Job Start Date Occupation Industry Not on file Not on file Not on file Travel History Travel Start Travel End No recent travel history available. Last Filed Vital Signs Not on file Plan of Treatment Not on file Procedures Procedure Name Priority Date/Time Associated Diagnosis Comme nts SARS-COV2/RT-PCR Routine 08/01/2019 9:15 PM Resu lts for this ([facility]) CDT procedure are in the results section. after 08/16/2018 Results SARS-CoV2/RT-PCR ([facility]) (08/01/2019 9:15 PM CDT) SARS-COV2/RT-PCR Not Detected Not Detected, Negative [facility] SARS-COV-2 PERFORMING LAB [facility] Specimen Other Narrative Performed At Negative results do not preclude SARS-CoV-2 [facility] infection and should not be used as the sole basis for patient management decisions. Negative results must be combined with clinical observations, patient history, and epidemiological information. A false negative result may occur if a specimen is improperly collected, transported or handled. The limit of detection for this assay is 250 copies/mL. This SARS CoV-2 test is a rapid, real-time RT-PCR test intended for the qualitative detection of nucleic acid from SARS-CoV-2 in a nasopharyngeal swab specimen collected from individuals suspected of COVID-19 by their healthcare provider. This test has not been Food and Drug Administration (FDA) cleared or approved and has been authorized by FDA under an Emergency Use Authorization (EUA). This EUA will be effective until the declaration that circumstances exist justifying the authorization of the emergency use of in vitro diagnostic tests for detection and/or diagnosis of COVID-19 is terminated under Section 564(b)(2) of the Act or the EUA is revoked under Section 564(g) of the Act. Fact Sheet for Healthcare Providers: https://www.[employer]/Documents/Xpert%20Xpre ss%20SARS%20CoV-2/Fact%20Sheets/3023802%20SAR S-COV-2%20HEALTHCARE%20PROVIDERS%20FACT%20SHEE T.pdf Fact Sheet for Healthcare Patients: https://www.[employer]/Documents/Xpert%20Xpre ss%20SARS%20CoV-2/Fact%20Sheets/3023801%20SAR S-COV-2%20PATIENT%20FACT%20SHEET.pdf Performing Laboratory: [address] [place] [address] Performing Organization Address City/State/Zipcode Phone Number [address] [address] CENTER after 08/16/2018 Insurance Payer Benefit Plan / Group Subscriber ID Type Phone A ddress [employer] xxxxxxxxx Maps Contracted Advance Directives For more information, please contact:[address] [phone] Code Status Date Activated Date Inactivated Comments Full Code 09/22/2015 10:53 AM 10/03/2015 5:33 PM This code status was determined by: Patient
--- OUTSIDE RECORDS SUMMARY | 2019-08-17 12:49 | XMS REPORT | Continuity of Care Document ---
:1930 Author Organization [facility] t Address [address] [place] [address] Care Team Providers Name Role Phone Sharpless Primary Care Physician Unavailable Doctor Unassigned, Name Attending Clinician Unavailable LAZARIDIS Attending Clinician Unavailable LAZARIDIS Admitting Clinician Unavailable Payers Payer Name Policy Type Policy Number Effective Expiration Source Date Date TEXANPLUSTEXANPLUS O xxxxxxxxx [facility] Problems Condition Condition Condition Status Onset Resolution Last Treating Co mments Source Name Details Category Date Date Treatment Clinician Date Essential Essential Disease Active [facility] hypertensi hypertensi 09-27 Elana kes - on on 00:00: Medical 00 [place] 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 [place] - type 2, type 2, 00:00: Medical controlled controlled 00 Ce nter , without , without complicati complicati ons ons Atrial Atrial Disease Active [facility] fibrillati fibrillati 09-27 Elana kes - on on 00:00: Medical 00 [place] 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-27 Elana kes - heart heart 00:00: Medical failure failure 00 Center 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 n n On enteral On enteral Disease Active [facility] nutrition nutrition 09-27 Luestrella s - 00:00: Medical 00 Center Physical Physical Disease Active [facility] deconditio deconditio 09-27 kes - yrn yrn 00:00: Medical 00 [place] 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 7-17 Luke s - requiring requiring 00:00: Medi angelica intubation intubation 00 Ce nter 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 7 Elana kes - 00:00: Medical 00 [place] 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[facility] 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 00:00: Me dical (DVT) of (DVT) of 00 Center distal distal vein of vein of right right lower lower extremity extremity Status 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 09-22 Elana kes - s s 00:00: Medical 00 [place] Seizure Seizure Disease Active [facility] 09-21 [facility] - 00:00: Medical 00 [place] Allergies, Adverse Reactions, Alerts Allergy Allergy Status Severity Reaction(s) Onset Inactive Treating Comm ents Source Name Type Date Date Clinician Penicill Drug Active Other (See Unknown [facility] ins Allergy Comments) 09-21 reaction Luke s - 00:00: Medical 00 [place] Social History Social Habit Start Date Stop Date Quantity Comments Source Sex Assigned At [facility] Smoking Status Start Date Stop Date Source Never smoker [facility] Medications Ordered Filled Start Stop Current Ordering Indication Dosage Frequency Signature Comments Components Source Medication Medication Date Date Medication? Clinician (SIG) Name Name furosemide Yes 60mg QD Take [address] (LASIX) 40 8-18 by mouth [facility] - MG tablet 16:48: daily . Medic al 52 [place] allopurinol Yes a type of 200mg QD Take [address] [address] (ZYLOPRIM) 8-18 joint mg by [facility] - 100 MG 13:18: disorder mouth Medica l tablet 18 due to daily . 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 Medical tablet 18 [place] levETIRAcet Yes 750mg Q.5D Take [address] am (KEPPRA) 8-18 mg by [facility] - 750 MG 13:18: mouth 2 Medical tablet 18 (two) Center times daily. sertraline 2017 Yes 25mg QD Take [address] (ZOLOFT) 25 8-18 by mouth Luke s - MG tablet 13:18: daily. Medica l 18 Center valsartan Yes 160mg QD Take [address] (DIOVAN) 8-18 mg by [facility] - 160 MG 13:18: mouth Medical tablet 18 daily. Center benzonatate Yes 100mg Take [address] (TESSALON) 8-18 mg by [facility] - 100 MG 13:18: mouth Medical capsule 18 every 6 Center (six) hours as needed for Cough. doxycycline 2017 Yes 100mg Q.5D Take [address] (DORYX) 100 8-18 mg by [facility] - MG EC 13:18: mouth 2 Medical tablet 18 (two) Center times daily. amLODIPine Yes 10mg QD Take [address] (NORVASC) 8-18 by mouth [facility] - 10 MG 13:18: daily. Medical tablet 17 Center rivaroxaban Yes 20mg QD Take [address] (XARELTO) 7-16 by mouth [facility] - 20 mg Tab 11:25: daily. Medica l tablet 24 Center tolterodine Yes urinary 2mg Q.5D Take [address] [facility] (DETROL) 2 7-16 urgency, or by mouth 2 [facility] - MG tablet 11:25: the sudden (two) M edical 23 urge to times Center urinate daily. Procedures Procedure Date / Time Performed Performing Clinician Sour e SARS-COV2/RT-PCR ([facility] 2019-08-01 21:15:00 [facility] Center Encounters Start End Encounter Admission Attending Care Care Encounter Source Date/Time Date/Time Type Type Clinicians Facility Department ID 2018-11-18 2018-11-18 Orders Doctor ENEDELIA [id number] 00:00:00 00:00:00 Only Unassigned, HANH [id number] [place] [facility] [id number] Results Test Description Test Time Test Comments Results Result Comments Source SARS-CoV2/RT-PCR ([facility] & Ref Labs) 2019-08-02 05:46:00 Test Item Value Reference Range Interpretation Comme nts SARS-COV2/RT-PCR (test code = Not Detected Not Detected, Negative ) SARS-COV-2 PERFORMING LAB [facility] (test code = 8525530) LONG (test code = LONG) Negative results do not preclude SARS-CoV-2 infection and should not be used as [...] of the Act. Fact Sheet for Healthcare Providers:https://www.DigiMeld/Documents/Xpert%20Xpress %20SARS%20CoV-2/Fact%20Sheets /3023802%34IABD-PEI-4%20HEAL THCARE%20PROVIDERS%20FACT%20S HEET.pdf Fact Sheet for Healthcare Patients:https://www.Office Depot/Documents/Xpert%20Xpress% 20SARS%20CoV-2/Fact%20Sheets/ 3023801%51YWZJ-ASR-1%20PATIE NT%20FACT%20SHEET.pdf Performing Laboratory:[facility] [place] [address] [facility] & REF LABS)2019-08-02 05:46:00 Test Item Value Reference Range Interpretation Comments SARS-COV2/RT-PCR (test Not Detected Not Detected, Negative code = 9850804) SARS-COV-2 PERFORMING LAB [facility] (test code = 2521719) Negative results do not preclude SARS-CoV-2 infection and should not be used as the sole basis for patient management decisions. Negative results must be combined with clinical observations, patient history, and epidemiological information. A false negative result may occur if a specimen is improperly collected, transported or handled.The limit of detection for this assay is 250 copies/mL.This SARS CoV-2 test is a rapid, real-time RT-PCR test intended for the qualitative detection of nucleic acid from SARS-CoV-2 in a nasopharyngeal swab specimen collected from individuals suspected of COVID-19 by their healthcare provider.This test has not been Food and Drug [...] is revoked under Section 564(g) of the Act.Fact Sheet for Healthcare Pro viders:https://www.Flytenow.CritiTech/Documents/Xpert%20Xpress%20SARS%20CoV-2/Fact%20Sh eets/302-3802%58ZVXV-EZR-6%20HEALTHCARE%20PROVIDERS%20FACT%20SHEET.pdfFact Sheet for Healthcare Patients:https://www.Go Overseas id.CritiTech/Documents/Xpert%20Xpress%20SARS%20CoV-2/Fact%20Sheets/302-3801%20SARS-COV -2%20PATIENT%20FACT%20SHEET.pdfPerforming Laboratory:[facility], [place] [address]INSGK [id number] 18:00:00 Test Item Value Reference Range Interpretation Comments CULTURE (BEAKER) (test No growth in 5 days code = 1095) BLOOD [id number] 18:00:00 Test Item Value Reference Range Interpretation Comments CULTURE (BEAKER) (test No growth in 5 days code = 1095) POCT-GLUCOSE [id number] 07:52:00 Test Item Value Reference Range Interpretation Comments POC-GLUCOSE METER 95 mg/dL 70-110 TESTED AT [facility] 6720 (BEAKER) (test code = [place] [address] 1538) TSH/FREE T4 IF [id number] 06:35:00 Test Item Value Reference Range Interpretation Comments THYROID STIMULATING HORMONE 1.58 uIU/mL 0.35-4.94 (BEAKER) (test code = 772) VITAMIN D, [id number] 05:55:00 Test Item Value Reference Range Interpretation Comments VITAMIN D 25-OH (BEAKER) (test code = < ng/mL 13.0-47.8 L 2764) TROPONIN [id number] 05:12:00 Test Item Value Reference Range Interpretation [...] renalfailure, acidosis, acute neurological disease, and persistent tachyarrhythmia.[id number] 05:04:00 Test Item Value Reference Range Interpretation Comments PHOSPHORUS (BEAKER) (test code = 2.9 mg/dL 2.3-4.7 604) [id number] 05:04:00 Test Item Value Reference Range Interpretation Comments MAGNESIUM (BEAKER) (test code = 1.9 mg/dL 1.6-2.6 627) BASIC METABOLIC [id number] 05:04:00 Test Item Value Reference Range Interpretation [...] PATIEN TS. CBC W/PLT COUNT & AUTO [id number] 04:51:00 Test Item Value Reference Range Interpretation [...] PERCENT (BEAKER) (test code = 2801) POCT-GLUCOSE [id number] 23:47:00 Test Item Value Reference Range Interpretation Comments POC-GLUCOSE METER 121 mg/dL 70-110 H TESTED AT [facility] 6720 (BEAKER) (test code = RASHAD [facility] 1538) [address] CBC W/PLT COUNT & AUTO [id number] 07:13:00 Test Item Value Reference Range Interpretation [...] (BEAKER) (test code = 2801) PHENYTOIN LEVEL, [id number] 06:29:00 Test Item Value Reference Range Interpretation Comments PHENYTOIN (DILANTIN) (BEAKER) 21.3 ug/mL 10.0-20.0 H (test code = 605) Prior to morning dose [id number] 06:18:00 Test Item Value Reference Range Interpretation Comments PHOSPHORUS (BEAKER) (test code = 2.8 mg/dL 2.3-4.7 604) [id number] 06:18:00 Test Item Value Reference Range Interpretation Comments MAGNESIUM (BEAKER) (test code = 2.1 mg/dL 1.6-2.6 627) BASIC METABOLIC [id number] 06:18:00 Test Item Value Reference Range Interpretation [...] S NOT APPLICABLE FOR DIALYSIS PATIEN TS. [id number] 06:12:00 Test Item Value Reference Range Interpretation Comments POTASSIUM (BEAKER) 4.0 meq/L 3.5-5.1 Specimen slightly (test code = 379) hemolyzed [id number] 09:55:00 Test Item Value Reference Range Interpretation Comments PHOSPHORUS (BEAKER) (test code = 2.5 mg/dL 2.3-4.7 604) PHENYTOIN LEVEL, [id number] 07:57:00 Test Item Value Reference Range Interpretation Comments PHENYTOIN (DILANTIN) (BEAKER) 20.0 ug/mL 10.0-20.0 (test code = 605) BLOOD GAS, [id number] 05:02:00 Test Item Value Reference Range Interpretation [...] TEMPERATURE (BEAKER) (test 37.0 C code = 7948) FIO2 (BEAKER) (test code = 1819) 21.0 % BASIC METABOLIC [id number] 04:34:00 Test Item Value Reference Range Interpretation [...] S NOT APPLICABLE FOR DIALYSIS PATIEN TS. [id number] 04:30:00 Test Item Value Reference Range Interpretation Comments MAGNESIUM (BEAKER) (test code = 2.3 mg/dL 1.6-2.6 627) CBC W/PLT COUNT & AUTO [id number] 04:12:00 Test Item Value Reference Range Interpretation [...] (BEAKER) (test code = 2801) PHENYTOIN LEVEL, [id number] 22:07:00 Test Item Value Reference Range Interpretation Comments PHENYTOIN (DILANTIN) (BEAKER) 14.2 ug/mL 10.0-20.0 (test code = 605) POCT-GLUCOSE [id number] 13:56:00 Test Item Value Reference Range Interpretation Comments POC-GLUCOSE METER 119 mg/dL 70-110 H TESTED AT [facility] 6720 (BEAKER) (test code = [place] 1538) [address] URINE [id number] 11:44:00 Test Item Value Reference Range Interpretation Comments CULTURE (BEAKER) (test code = See comment 1095) <10,000 col/mL Gram Negative rodsSPUTUM CULTURE + GRAM [id number] 09:04:00 Test Item Value Reference Range Interpretation Comments CULTURE (BEAKER) 4+ Normal respiratory (test code = 1095) rachel present GRAM STAIN RESULT 1+ WBCs (BEAKER) (test code = 1123) GRAM STAIN RESULT 0-5 epithelial cells (BEAKER) (test code = 92801) GRAM STAIN RESULT 2+ gram positive cocci (BEAKER) (test code = in chains and pairs 84290) [id number] 05:12:00 Test Item Value Reference Range Interpretation Comments MAGNESIUM (BEAKER) 2.5 mg/dL 1.6-2.6 Specimen slightly (test code = 627) hemolyzed [id number] 05:12:00 Test Item Value Reference Range Interpretation Comments PHOSPHORUS (BEAKER) 2.2 mg/dL 2.3-4.7 L Specimen slightly (test code = 604) hemolyzed BASIC METABOLIC [id number] 05:12:00 Test Item Value Reference Range Interpretation [...] ESTIMATED GFR. CBC W/PLT COUNT & AUTO [id number] 05:01:00 Test Item Value Reference Range Interpretation [...] 0-1 PERCENT (BEAKER) (test code = 2801) [id number] 21:19:00 Test Item Value Reference Range Interpretation Comments POTASSIUM (BEAKER) (test code = 3.8 meq/L 3.5-5.1 379) POCT-GLUCOSE [id number] 18:19:00 Test Item Value Reference Range Interpretation Comments POC-GLUCOSE METER 113 mg/dL 70-110 H TESTED AT [place] [address] (BEAKER) (test code = RASH[place] 1538) [address] POCT-GLUCOSE [id number] 13:32:00 Test Item Value Reference Range Interpretation Comments POC-GLUCOSE METER 107 mg/dL 70-110 TESTED AT [place] [address] (BEAKER) (test code = [facility] 1538) [address] POCT-GLUCOSE [id number] 07:32:00 Test Item Value Reference Range Interpretation Comments POC-GLUCOSE METER 105 mg/dL 70-110 TESTED AT [place] [address] (BEAKER) (test code = [facility] 1538) [address] BASIC METABOLIC [id number] 05:54:00 Test Item Value Reference Range Interpretation [...] TO CALCULA TE ESTIMATED GFR. BLOOD GAS, [id number] 05:44:00 Test Item Value Reference Range Interpretation [...] (BEAKER) (test code = 1819) 40.0 % [id number] 05:38:00 Test Item Value Reference Range Interpretation Comments MAGNESIUM (BEAKER) 2.4 mg/dL 1.6-2.6 Specimen slightly (test code = 627) hemolyzed [id number] 05:38:00 Test Item Value Reference Range Interpretation Comments PHOSPHORUS (BEAKER) 2.0 mg/dL 2.3-4.7 L Specimen slightly (test code = 604) hemolyzed CBC W/PLT COUNT & AUTO [id number] 05:14:00 Test Item Value Reference Range Interpretation [...] = 2801) RAD, CHEST, 1 VIEW, NON [id number] 03:01:00Reason for exam:->ETT verficiationShould this be performed [...] the nasogastric tube. Otherwise stable exam. Signed: Daysi Robert MDReport Verified Date/Time: 10/25/2016 03:01:35 Reading Location: [address] Reading Room TROPONIN [id number] 02:55:00 Test Item Value Reference Range Interpretation Comments TROPONIN I (BEAKER) (test code = 0.31 ng/mL 0.00-0.03 397) Effective 01/24/2014: Reference Range [...] Previous: 0.0-4.9CK-MB Reference Range:<6.7 Normal6.7-10.0 Borderline>10.0 AbnormalPOCT-GLUCOSE [id number] 00:18:00 Test Item Value Reference Range Interpretation Comments POC-GLUCOSE METER 103 mg/dL 70-110 TESTED AT [facility] 67[address] (BEAKER) (test code = RASH[place] 1538) [address] BASIC METABOLIC [id number] 18:32:00 Test Item Value Reference Range Interpretation [...] 358) GLUCOSE RANDOM 119 mg/dL 70-105 H (BEAKER) (test code = 652) CALCIUM (BEAKER) 8.9 mg/dL 8.4-10.2 (test code = 697) EGFR (BEAKER) (test mL/min/1.73 INSUFFIC IENT CLINICAL code = 1092) sq m DATA TO CALCULA TE ESTIMATED GFR. [id number] 18:23:00 Test Item Value Reference Range Interpretation Comments PHOSPHORUS (BEAKER) (test code = 1.6 mg/dL 2.3-4.7 L 604) [id number] 18:23:00 Test Item Value Reference Range Interpretation Comments MAGNESIUM (BEAKER) (test code = 1.6 mg/dL 1.6-2.6 627) POCT-GLUCOSE [id number] 18:16:00 Test Item Value Reference Range Interpretation Comments POC-GLUCOSE METER 118 mg/dL 70-110 H TESTED AT [facility] [address] (BEAKER) (test code = [place] 1538) [address] TROPONIN [id number] 16:10:00 Test Item Value Reference Range Interpretation Comments TROPONIN I (BEAKER) (test code = 0.27 ng/mL 0.00-0.03 397) Effective 01/24/2014: Reference Range [...] Range Interpretation Comments CREATINE KINASE TOTAL (BEAKER) 117 U/L 29-200 (test code = 380) CREATINE KINASE-MB (BEAKER) (test 5.0 ng/mL 0.0-6.6 code = 750) CREATINE KINASE-MB INDEX (BEAKER) 4.3 % (test code = 395) Effective 01/24/2014: CK-MB Reference Range ChangeNew: 0.0-6.6 Previous: 0.0-4.9CK-MB Reference Range:<6.7 Normal6.7-10.0 Borderline>10.0 AbnormalURINALYSIS W/ [id number] 15:35:00 Test Item Value Reference Range Interpretation [...] 516) SOURCE(BEAKER) (test code = Urine, [place] 5561) HEPATIC FUNCTION [id number] 15:06:00 Test Item Value Reference Range Interpretation [...] code = 8 U/L 6-55 347) PROTHROMBIN TIME/[id number] 14:53:00 Test Item Value Reference Range Interpretation Comments PROTIME (BEAKER) (test code = 17.0 seconds 11.7-14.7 H 759) INR (BEAKER) (test code = 370) 1.4 <=5.9 RECOMMENDED COUMADIN/WARFARIN INR THERAPY RANGESSTANDARD DOSE: 2.0 - 3.0 Includes: PROPHYLAXIS forvenous thrombosis, systemic embolization; TREATMENT for venous thrombosis and/or pulmonary embolus.HIGH RISK: Target INR is 2.5-3.5 for patients with mechanical heart valves.[id number] 14:53:00 Test Item Value Reference Range Interpretation Comments PARTIAL THROMBOPLASTIN TIME 33.9 seconds 22.5-36.0 (BEAKER) (test code = 760) BLOOD GAS, [id number] 14:44:00 Test Item Value Reference Range Interpretation [...]
[2019-08-17 13:24] LABS: Absolute Lymphocytes (CBC) 1.9 K/uL (0.7-4.9); Basophils % 0.2 % (0-1.3); Hematocrit 27.5 % (36.0-45.0); Lymphocytes % 25.9 % (15.3-44.8); MPV 7.8 fL (7.6-11.3); RBC Red Blood Cell Count 2.87 M/uL (3.86-4.86)
[2019-08-17 13:38] LABS: Potassium 3.8 mmol/L (3.5-5.1)
--- NOTE | 2019-08-17 15:46 | ER ---
Nurse's Notes [facility] Name: Lizette Evans Age: 88 yrs Sex: Female : 1930 Arrival Date: 08/17/2019 Time: 12:46 Bed 15 Private MD: Diagnosis: Anemia Presentation: 08/16 12:48 Chief complaint: EMS states: was sent by Dr. Hightower for low hemoglobin, needs a blood iw transfusion, pt c/o feeling tired, pt has PICC line in place, and warren catheter in place, does not know what medications she is on. Coronavirus screen: Proceed with normal triage. Patient denies a cough. Patient denies shortness of breath or difficulty breathing. Patient denies measured and/or subjective temperature greater than 100.4F prior to today's visit. Patient denies travel on a cruise ship or to a country the [facility] currently lists as an affected area. Patient denies contact with known and/or suspected case of COVID-19. Ebola Screen: Patient negative for fever greater than or equal to 101.5 degrees Fahrenheit, and additional compatible Ebola Virus Disease symptoms Patient denies exposure to infectious person. Patient denies travel to an Ebola-affected area in the 21 days before illness onset. No symptoms or risks identified at this time. 12:48 Method Of Arrival: EMS: [facility] iw 12:48 Acuity: ERICKA 3 iw 13:00 Initial Sepsis Screen: Does the patient meet any 2 criteria? No. Patient's initial iw sepsis screen is negative. Does the patient have a suspected source of infection? No. Patient's initial sepsis screen is negative. Risk Assessment: Do you want to hurt yourself or someone else? Patient reports no desire to harm self or others. Onset of symptoms was August 17, 2019. Historical: - Allergies: 15:45 PENICILLINS; iw 15:45 Nitrofurantoin; iw - PMHx: 15:45 ADD/ADHD; Atrial Fib; CVA; DVT; Hypertension; Seizures; TIA; iw - Immunization history:: Adult Immunizations unknown. - Social history:: Smoking status: Patient denies any tobacco usage or history of. Screenin:51 Abuse screen: Denies threats or abuse. Nutritional screening: No deficits noted. tw2 Tuberculosis screening: No symptoms or risk factors identified. Fall Risk Secondary diagnosis (15 points) impaired mobility. Assessment: 13:00 General: Appears in no apparent distress. Behavior is anxious. Pain: Denies pain. iw Neuro: Level of Consciousness is awake, alert, obeys commands, Weakness in bilateral leg(s). Cardiovascular: Patient's skin is warm and dry. Respiratory: Respiratory effort is even, unlabored, Respiratory pattern is regular. : Warren in place to gravity drainage. Derm: Skin is normal. Derm: Decubitus located on sacrum. Musculoskeletal: Range of motion: limited in all extremities. 14:00 Reassessment: Patient appears in no apparent distress at this time. Patient and/or iw family updated on plan of care and expected duration. Pain level reassessed. Patient denies pain at this time. 16:18 Reassessment: Patient waiting on EMS for ride home. vc Vital Signs: 12:55 BP 103 / 64; Pulse 74; Resp 16; Temp 98.0; Pulse Ox 98% on R/A; Pain 0/10; iw 13:47 BP 94 / 73; Pulse 121; Resp 15; Pulse Ox 98% ; vc 14:15 BP 85 / 73; Pulse 71; Resp 16; Pulse Ox 98% ; vc 15:15 BP 91 / 49; Pulse 69; Resp 15; Pulse Ox 96% ; vc 16:00 BP 97 / 46; Pulse 75; Resp 15; Pulse Ox 98% ; vc ED Course: 12:46 Patient arrived in ED. iw 12:47 Nikki Houston, RN is Primary Nurse. iw 12:50 Triage completed. iw 12:51 Bed in low position. Call light in reach. Side rails up X2. equipment monitor phototypesetting on. Pulse tw2 ox on. NIBP on. Warm blanket given. 12:52 Arm band placed on. tw2 12:54 Charli Mcpherson PA is PHCP. jr8 12:54 Tacos Bland MD is Attending Physician. jr8 13:00 Accessed PICC line. using per hospital protocol. Clean \T\ dry. Dressing intact. Good iw blood return. Flushes easily. 15:20 Cleaned of incontinence. calazime cream applied to ulcer in sacral area. jp3 16:53 No provider procedures requiring assistance completed. Patient did not have IV access iw during this emergency room visit. Administered Medications: No medications were administered Outcome: 15:45 Discharge ordered by MD. jr8 16:53 Discharged to home via ambulance. iw 16:53 Condition: good 16:53 Discharge instructions given to family, Instructed on discharge instructions, follow up and referral plans. Demonstrated understanding of instructions, follow-up care. 16:54 Patient left the ED. iw Signatures: Nikki Houston RN RN Charli Mcpherson PA PA jr8 Kristina Thomas RN RN tw2 Devaughn Deshpande jp3 Ashley Wilson RN RN vc
--- NOTE | 2019-08-17 15:46 | EDPHYS ---
Physician Documentation [facility] Name: Lizette Evans Age: 88 yrs Sex: Female : 1930 Arrival Date: 08/17/2019 Time: 12:46 Bed 15 Private MD: ED Physician Tacos Bland HPI: 08/16 14:17 This 88 yrs old Black Female presents to ER via EMS with complaints of Abnormal Lab jr8 Results. 14:17 Patient was sent to ED on behalf of her PCP for low H/H. Stated that she was just jr8 released from hospital for sepsis secondary to UTI. Patient on Eliquis . Severity of symptoms: At their worst the symptoms were mild. It is unknown whether or not the patient has had similar symptoms in the past. The patient has been recently seen by a physician:. Historical: - Allergies: 15:45 PENICILLINS; iw 15:45 Nitrofurantoin; iw - PMHx: 15:45 ADD/ADHD; Atrial Fib; CVA; DVT; Hypertension; Seizures; TIA; iw - Immunization history:: Adult Immunizations unknown. - Social history:: Smoking status: Patient denies any tobacco usage or history of. ROS: 14:17 Eyes: Negative for injury, pain, redness, and discharge, ENT: Negative for injury, jr8 pain, and discharge, Neck: Negative for injury, pain, and swelling, Cardiovascular: Negative for chest pain, palpitations, and edema, Respiratory: Negative for shortness of breath, cough, wheezing, and pleuritic chest pain, Abdomen/GI: Negative for abdominal pain, nausea, vomiting, diarrhea, and constipation, Back: Negative for injury and pain, MS/Extremity: Negative for injury and deformity, Skin: Negative for injury, rash, and discoloration, Neuro: Negative for headache, weakness, numbness, tingling, and seizure. Exam: 14:17 Eyes: Pupils equal round and reactive to light, extra-ocular motions intact. Lids and jr8 lashes normal. Conjunctiva and sclera are non-icteric and not injected. Cornea within normal limits. Periorbital areas with no swelling, redness, or edema. ENT: Nares patent. No nasal discharge, no septal abnormalities noted. Tympanic membranes are normal and external auditory canals are clear. Oropharynx with no redness, swelling, or masses, exudates, or evidence of obstruction, uvula midline. Mucous membranes moist. Neck: Trachea midline, no thyromegaly or masses palpated, and no cervical lymphadenopathy. Supple, full range of motion without nuchal rigidity, or vertebral point tenderness. No Meningismus. Cardiovascular: Regular rate and rhythm with a normal S1 and S2. No gallops, murmurs, or rubs. Normal PMI, no JVD. No pulse deficits. Respiratory: Lungs have equal breath sounds bilaterally, clear to auscultation and percussion. No rales, rhonchi or wheezes noted. No increased work of breathing, no retractions or nasal flaring. Abdomen/GI: Soft, non-tender, with normal bowel sounds. No distension or tympany. No guarding or rebound. No evidence of tenderness throughout. Negative stool guiac Back: No spinal tenderness. No costovertebral tenderness. Full range of motion. Skin: Warm, dry with normal turgor. Normal color with no rashes, no lesions, and no evidence of cellulitis. MS/ Extremity: Pulses equal, no cyanosis. Neurovascular intact. Full, normal range of motion. Neuro: Awake and alert, GCS 15, oriented to person, place, time, and situation. Cranial nerves II-XII grossly intact. Motor strength 5/5 in all extremities. Sensory grossly intact. Vital Signs: 12:55 BP 103 / 64; Pulse 74; Resp 16; Temp 98.0; Pulse Ox 98% on R/A; Pain 0/10; iw 13:47 BP 94 / 73; Pulse 121; Resp 15; Pulse Ox 98% ; vc 14:15 BP 85 / 73; Pulse 71; Resp 16; Pulse Ox 98% ; vc 15:15 BP 91 / 49; Pulse 69; Resp 15; Pulse Ox 96% ; vc 16:00 BP 97 / 46; Pulse 75; Resp 15; Pulse Ox 98% ; vc MDM: 12:54 Patient medically screened. jr8 14:17 Data reviewed: vital signs, nurses notes, lab test result(s). Data interpreted: Pulse jr8 oximetry: on room air is 98 %. Interpretation: normal. Counseling: I had a detailed discussion with the patient and/or guardian regarding: the historical points, exam findings, and any diagnostic results supporting the discharge/admit diagnosis, lab results. ED course: Discussed with family that patient does not require blood transfusion at this time based on todays labs. That they can set up for an outpatient iron transfusion at there PCPs discretion and that there rack puller needs to assess whether patient should stay on Eliquis or not. Negative quaiac study. Not likely that Eliquis is cause for hemoglobin. Based on previous labs appears that patient has underlying long standing anemia. Recommend redraw of H/H after the weekend to further assess stability. If worse to come back to ED. Family and patient is good with this plan . 08/16 12:59 Order name: CBC with Diff; Complete Time: 13:33 [facility] 08/16 12:59 Order name: Basic Metabolic Panel; Complete Time: 13:46 [facility] 08/16 12:59 Order name: T\T\S; Complete Time: 14:15 [facility] 08/16 12:59 Order name: IV; Complete Time: 14:48 [facility] 08/16 14:14 Order name: Labs collected and sent: collect abo/rh no charge; Complete Time: 16:41 bd 08/16 15:42 Order name: Occult Blood--Ancillary; Complete Time: 15:46 bd Administered Medications: No medications were administered Disposition: 08/17/19 15:45 Discharged to Home. Impression: Anemia. - Condition is Stable. - Discharge Instructions: Iron Deficiency Anemia, Adult, Anemia, Nonspecific. - Medication Reconciliation Form, Thank You Letter, Antibiotic Education, Prescription Opioid Use form. - Follow up: Private Physician; When: 2 - 3 days; Reason: Recheck today's complaints, Continuance of care, Re-evaluation by your physician. - Problem is new. - Symptoms are unchanged. Addendum: 08/18/2019 18:41 Co-signature as Attending Physician, Tacos Bland MD I agree with the assessment and c goyal plan of care. Signatures: Dispatcher [employer] EDMS Debbie Chaduhry Corey, MD MD cha Williams, Irene, RN RN iw Roszak, Josh, PA PA jr8 Corrections: (The following items were deleted from the chart) 08/16 15:42 14:17 Eyes: Pupils equal round and reactive to light, extra-ocular motions intact. Lids jr8 and lashes normal. Conjunctiva and sclera are non-icteric and not injected. Cornea within normal limits. Periorbital areas with no swelling, redness, or edema. ENT: Nares patent. No nasal discharge, no septal abnormalities noted. Tympanic membranes are normal and external auditory canals are clear. Oropharynx with no redness, swelling, or masses, exudates, or evidence of obstruction, uvula midline. Mucous membranes moist. Neck: Trachea midline, no thyromegaly or masses palpated, and no cervical lymphadenopathy. Supple, full range of motion without nuchal rigidity, or vertebral point tenderness. No Meningismus. Cardiovascular: Regular rate and rhythm with a normal S1 and S2. No gallops, murmurs, or rubs. Normal PMI, no JVD. No pulse deficits. Respiratory: Lungs have equal breath sounds bilaterally, clear to auscultation and percussion. No rales, rhonchi or wheezes noted. No increased work of breathing, no retractions or nasal flaring. Abdomen/GI: Soft, non-tender, with normal bowel sounds. No distension or tympany. No guarding or rebound. No evidence of tenderness throughout. Back: No spinal tenderness. No costovertebral tenderness. Full range of motion. Skin: Warm, dry with normal turgor. Normal color with no rashes, no lesions, and no evidence of cellulitis. MS/ Extremity: Pulses equal, no cyanosis. Neurovascular intact. Full, normal range of motion. Neuro: Awake and alert, GCS 15, oriented to person, place, time, and situation. Cranial nerves II-XII grossly intact. Motor strength 5/5 in all extremities. Sensory grossly intact. jr8 15:44 14:17 ED course: Discussed with family that patient does not require blood transfusion jr8 at this time based on todays labs. That they can set up for an outpatient iron transfusion at there PCPs discretion and that there rack puller needs to assess whether patient should stay on Eliquis or not. jr8 16:54 15:45 08/17/2019 15:45 Discharged to Home. Impression: Anemia. Condition is Stable. iw Forms are Medication Reconciliation Form, Thank You Letter, Antibiotic Education, Prescription Opioid Use. Follow up: Private Physician; When: 2 - 3 days; Reason: Recheck today's complaints, Continuance of care, Re-evaluation by your physician. Problem is new. Symptoms are unchanged. jr8
[2019-08-17 17:00] VITALS: TEMP 98
[2019-08-17 17:05] VITALS: BP 97/46; O2SAT 98
== END 2019-08-17 16:54 | disposition home or self-care (01) ==
LOC: ER 12:44
DX: D64.9 Anemia, unspecified (principal); Z88.0 Allergy status to penicillin; Z88.8 Allergy status to other drugs, medicaments and biological substances
CPT/HCPCS: 36415; 80048; 82272; 85025; 86850; 86900; 86901; 99285

== ENCOUNTER 2019-08-29 09:55 | Emergency (ER) | payer OTHER ==
[2019-08-29] MEDS ORDERED: VANCOMYCIN/NS 1 gm 1 GM/250 ML BAG IV ONE (10:30)
[2019-08-29] MEDS ORDERED: ACETAMINOPHEN 650MG/RECT SUPP PR ONE (10:42)
[2019-08-29] MEDS ORDERED: NA CHLORIDE 0.9% 2,000 ML ONE (10:43)
[2019-08-29 11:08] LABS: Absolute Lymphocytes (CBC) 2.3 K/uL (0.7-4.9); Basophils % 0.6 % (0-1.3); Hematocrit 29.5 % (36.0-45.0); Lymphocytes % 10.3 % (15.3-44.8); MPV 7.6 fL (7.6-11.3); RBC Red Blood Cell Count 3.03 M/uL (3.86-4.86)
[2019-08-29 11:15] LABS: Protime INR 1.83
--- OUTSIDE RECORDS SUMMARY | 2019-08-29 11:28 | XMS REPORT | Clinical Summary ---
:1930 Author Organization [facility] Address [address] [place] [address] Care Team Providers Name Role Phone Sharpless [...] Team Description 08/02/2019 Lab Requisition Lab after 08/28/2018 Social History Tobacco Use Types Packs/Day Years [...] procedure are in the results section. after 08/28/2018 Results SARS-CoV2/RT-PCR ([facility]) (08/01/2019 9:15 PM CDT) SARS-COV2/RT-PCR Not Detected Not Detected, Negative [facility] SARS-COV-2 PERFORMING LAB [facility] Specimen Other Narrative Performed At Negative results do not preclude SARS-CoV-2 [facility] infection and should not be used as [...] the Act. Fact Sheet for Healthcare Providers: https://www.[employer]/Documents/Xpert%20Xpre ss%20SARS%20CoV-2/Fact%20Sheets/3023802%20SAR S-COV-2%20HEALTHCARE%20PROVIDERS%20FACT%20SHEE T.pdf Fact Sheet for Healthcare Patients: https://www.[employer]/Documents/Xpert%20Xpre ss%20SARS%20CoV-2/Fact%20Sheets/3023801%20SAR S-COV-2%20PATIENT%20FACT%20SHEET.pdf Performing Laboratory: [address] [place] [address] Performing Organization Address City/State/Zipcode Phone Number [address] [address] CENTER after 08/28/2018 Insurance Payer Benefit Plan / Group Subscriber ID Type Phone A ddress [employer] xxxxxxxxx Maps Contracted Advance Directives For more information, please contact:[address] [phone] Code Status Date Activated Date Inactivated Comments Full Code 09/22/2015 10:53 AM 10/03/2015 5:33 PM This code status was determined by: Patient
--- OUTSIDE RECORDS SUMMARY | 2019-08-29 11:29 | XMS REPORT | Continuity of Care Document ---
:1930 Author Organization [facility] t Address [address] [place] [address] Care Team Providers Name Role Phone Sharpless Primary Care Physician Unavailable Doctor Unassigned, Name Attending Clinician Unavailable LAZARIDIS Attending Clinician Unavailable LAZARIDIS Admitting Clinician Unavailable Payers Payer Name Policy Type Policy Number Effective Expiration Source Date Date TEXANPLUSTEXANPLUS O xxxxxxxxx I St ALLxxxxxxxxxMaps [facility] [place] Problems Condition Condition Condition Status Onset Resolution Last Treating Co mments Source Name Details Category Date Date Treatment Clinician Date Essential Essential Disease Active [facility] hypertensi hypertensi 09-27 Elana kes - on on 00:00: Medical 00 [place] 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 [place] - type 2, type 2, 00:00: Medical controlled controlled 00 Ce nter , without , without complicati complicati ons ons Atrial Atrial Disease Active [facility] fibrillati fibrillati 09-27 Elana kes - on on 00:00: Medical 00 Center 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-27 Elana kes - heart heart 00:00: Medical failure failure 00 Center 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 n n On enteral On enteral Disease Active [facility] nutrition nutrition 09-27 Luke s - 00:00: Medical 00 [place] Physical Physical Disease Active [facility] deconditio deconditio 09-27 estrellas - yrn yrn 00:00: Medical 00 [place] 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 09-22 Luke s - requiring requiring 00:00: Medi angelica intubation intubation 00 Ce nter 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 09-22 Elana kes - 00:00: Medical 00 [place] 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[facility] 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 00:00: Me dical (DVT) of (DVT) of 00 Center distal distal vein of vein of right right lower lower extremity extremity 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 Ordered Filled Start Stop Current Ordering Indication Dosage Frequency Signature Comments Components Source Medication Medication Date Date Medication? Clinician (SIG) Name Name furosemide Yes 60mg QD Take [address] (LASIX) 40 8-18 by mouth [facility] - MG tablet 16:48: daily . Medic al 52 [place] allopurinol Yes a type of 200mg QD Take [address] (ZYLOPRIM) 8-18 joint mg by [facility] - 100 MG 13:18: disorder mouth Medica l tablet 18 due to daily . 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 Medical tablet 18 [place] levETIRAcet Yes 750mg Q.5D Take 750 C [...] mouth Medical tablet 18 daily. Center benzonatate 2017 Yes 100mg Take [address] [...] Procedure Date / Time Performed Performing Clinician Sourc e SARS-COV2/RT-PCR ([facility] 2019-08-01 21:15:00 [facility] Center Encounters Start End Encounter Admission Attending Care Care Encounter Source Date/Time Date/Time Type Type Clinicians Facility Department ID 2018-11-18 2018-11-18 Orders Doctor MCDANIELS [id number] 00:00:00 00:00:00 Only Unassigned, HANH [id number] [place] [facility] [id number] Results Test Description Test Time Test Comments Results Result Comments Source SARS-CoV2/RT-PCR ([facility] & Ref Labs) 2019-08-02 05:46:00 Test Item Value Reference Range Interpretation Comme nts SARS-COV2/RT-PCR (test code = Not Detected Not Detected, Negative 22590-3) SARS-COV-2 PERFORMING LAB [facility] (test code = 63415-8) LONG (test code = LONG) Negative results [...] of the Act. Fact Sheet for Healthcare Providers:https://www.Droplet/Documents/Xpert%20Xpress %20SARS%20CoV-2/Fact%20Sheets /3023802%71LZRG-SCV-9%20HEAL THCARE%20PROVIDERS%20FACT%20S HEET.pdf Fact Sheet for Healthcare Patients:https://www.ReadyForZero/Documents/Xpert%20Xpress% 20SARS%20CoV-2/Fact%20Sheets/ 3023801%94QINV-DDL-1%20PATIE NT%20FACT%20SHEET.pdf Performing Laboratory:[facility] [place] [address] [facility] & REF LABS)2019-08-02 05:46:00 Test Item Value Reference Range Interpretation Comments SARS-COV2/RT-PCR (test Not Detected Not Detected, Negative code = 0607920) SARS-COV-2 PERFORMING LAB [facility] (test code = 5358784) Negative results do not preclude SARS-CoV-2 infection [...] of the Act.Fact Sheet for Healthcare Pro viders:https://www.NaviExpert.GaN Systems/Documents/Xpert%20Xpress%20SARS%20CoV-2/Fact%20Sh eets/3023802%20ZCBL-QDB-0%20HEALTHCARE%20PROVIDERS%20FACT%20SHEET.pdfFact Sheet for Healthcare Patients:https://www.Subimage/Documents/Xpert%20Xpress%20SARS%20CoV-2/Fact%20Sheets/3023801%20SARS-COV -2%20PATIENT%20FACT%20SHEET.pdfPerforming Laboratory:[facility], [place] [address]AENJI [id number] 18:00:00 Test Item Value Reference Range Interpretation Comments CULTURE (BEAKER) (test No growth in 5 days code = 1095) BLOOD [id number] 18:00:00 Test Item Value Reference Range Interpretation Comments CULTURE (BEAKER) (test No growth in 5 days code = 1095) POCT-GLUCOSE [id number] 07:52:00 Test Item Value Reference Range Interpretation Comments POC-GLUCOSE METER 95 mg/dL 70-110 TESTED AT [facility] [address] (BEAKER) (test code = [place] [address] 1538) TSH/FREE T4 IF [id number] 06:35:00 Test Item Value Reference Range Interpretation Comments THYROID STIMULATING HORMONE 1.58 uIU/mL 0.35-4.94 (BEAKER) (test code = 772) VITAMIN D, [id number] 05:55:00 Test Item Value Reference Range Interpretation Comments VITAMIN D 25-OH (BEAKER) (test code = < ng/mL 13.0-47.8 L 2764) TROPONIN [id number] 05:12:00 Test Item Value Reference Range Interpretation [...] renalfailure, acidosis, acute neurological disease, and persistent tachyarrhythmia.[id number] 05:04:00 Test Item Value Reference Range Interpretation Comments PHOSPHORUS (BEAKER) (test code = 2.9 mg/dL 2.3-4.7 604) [id number] 05:04:00 Test Item Value Reference Range Interpretation Comments MAGNESIUM (BEAKER) (test code = 1.9 mg/dL 1.6-2.6 627) BASIC METABOLIC [id number] 05:04:00 Test Item Value Reference Range Interpretation [...] PATIEN TS. CBC W/PLT COUNT & AUTO [id number] 04:51:00 Test Item Value Reference Range Interpretation [...] PERCENT (BEAKER) (test code = 2801) POCT-GLUCOSE [id number] 23:47:00 Test Item Value Reference Range Interpretation Comments POC-GLUCOSE METER 121 mg/dL 70-110 H TESTED AT [facility] [address] (BEAKER) (test code = [place] 1538) [address] CBC W/PLT COUNT & AUTO [id number] 07:13:00 Test Item Value Reference Range Interpretation [...] (BEAKER) (test code = 2801) PHENYTOIN LEVEL, [id number] 06:29:00 Test Item Value Reference Range Interpretation Comments PHENYTOIN (DILANTIN) (BEAKER) 21.3 ug/mL 10.0-20.0 H (test code = 605) Prior to morning dose [id number] 06:18:00 Test Item Value Reference Range Interpretation Comments PHOSPHORUS (BEAKER) (test code = 2.8 mg/dL 2.3-4.7 604) [id number] 06:18:00 Test Item Value Reference Range Interpretation Comments MAGNESIUM (BEAKER) (test code = 2.1 mg/dL 1.6-2.6 627) BASIC METABOLIC [id number] 06:18:00 Test Item Value Reference Range Interpretation [...] S NOT APPLICABLE FOR DIALYSIS PATIEN TS. [id number] 06:12:00 Test Item Value Reference Range Interpretation Comments POTASSIUM (BEAKER) 4.0 meq/L 3.5-5.1 Specimen slightly (test code = 379) hemolyzed [id number] 09:55:00 Test Item Value Reference Range Interpretation Comments PHOSPHORUS (BEAKER) (test code = 2.5 mg/dL 2.3-4.7 604) PHENYTOIN LEVEL, [id number] 07:57:00 Test Item Value Reference Range Interpretation Comments PHENYTOIN (DILANTIN) (BEAKER) 20.0 ug/mL 10.0-20.0 (test code = 605) BLOOD GAS, [id number] 05:02:00 Test Item Value Reference Range Interpretation [...] code = 1819) 21.0 % BASIC METABOLIC [id number] 04:34:00 Test Item Value Reference Range Interpretation [...] S NOT APPLICABLE FOR DIALYSIS PATIEN TS. [id number] 04:30:00 Test Item Value Reference Range Interpretation Comments MAGNESIUM (BEAKER) (test code = 2.3 mg/dL 1.6-2.6 627) CBC W/PLT COUNT & AUTO [id number] 04:12:00 Test Item Value Reference Range Interpretation [...] (BEAKER) (test code = 2801) PHENYTOIN LEVEL, [id number] 22:07:00 Test Item Value Reference Range Interpretation Comments PHENYTOIN (DILANTIN) (BEAKER) 14.2 ug/mL 10.0-20.0 (test code = 605) POCT-GLUCOSE [id number] 13:56:00 Test Item Value Reference Range Interpretation Comments POC-GLUCOSE METER 119 mg/dL 70-110 H TESTED AT [facility] [address] (BEAKER) (test code = [place] [place] 1538) [address] URINE [id number] 11:44:00 Test Item Value Reference Range Interpretation Comments CULTURE (BEAKER) (test code = See comment 1095) <10,000 col/mL Gram Negative rodsSPUTUM CULTURE + GRAM [id number] 09:04:00 Test Item Value Reference Range Interpretation Comments CULTURE (BEAKER) 4+ Normal respiratory (test code = 1095) rachel present GRAM STAIN RESULT 1+ WBCs (BEAKER) (test code = 1123) GRAM STAIN RESULT 0-5 epithelial cells (BEAKER) (test code = 16331) GRAM STAIN RESULT 2+ gram positive cocci (BEAKER) (test code = in chains and pairs 04835) [id number] 05:12:00 Test Item Value Reference Range Interpretation Comments MAGNESIUM (BEAKER) 2.5 mg/dL 1.6-2.6 Specimen slightly (test code = 627) hemolyzed [id number] 05:12:00 Test Item Value Reference Range Interpretation Comments PHOSPHORUS (BEAKER) 2.2 mg/dL 2.3-4.7 L Specimen slightly (test code = 604) hemolyzed BASIC METABOLIC [id number] 05:12:00 Test Item Value Reference Range Interpretation [...] ESTIMATED GFR. CBC W/PLT COUNT & AUTO [id number] 05:01:00 Test Item Value Reference Range Interpretation [...] 0-1 PERCENT (BEAKER) (test code = 2801) [id number] 21:19:00 Test Item Value Reference Range Interpretation Comments POTASSIUM (BEAKER) (test code = 3.8 meq/L 3.5-5.1 379) POCT-GLUCOSE [id number] 18:19:00 Test Item Value Reference Range Interpretation Comments POC-GLUCOSE METER 113 mg/dL 70-110 H TESTED AT [facility] [address] (BEAKER) (test code = [address] [place] 1538) [address] POCT-GLUCOSE [id number] 13:32:00 Test Item Value Reference Range Interpretation Comments POC-GLUCOSE METER 107 mg/dL 70-110 TESTED AT [facility] [address] (BEAKER) (test code = MACARIOSD [place] 1538) [address] POCT-GLUCOSE [id number] 07:32:00 Test Item Value Reference Range Interpretation Comments POC-GLUCOSE METER 105 mg/dL 70-110 TESTED AT [place] [address] ([facility]) (test code = [facility] [place] 1538) [address] BASIC METABOLIC [id number] 05:54:00 Test Item Value Reference Range Interpretation [...] TO CALCULA TE ESTIMATED GFR. BLOOD GAS, [id number] 05:44:00 Test Item Value Reference Range Interpretation [...] (BEAKER) (test code = 1819) 40.0 % [id number] 05:38:00 Test Item Value Reference Range Interpretation Comments MAGNESIUM (BEAKER) 2.4 mg/dL 1.6-2.6 Specimen slightly (test code = 627) hemolyzed [id number] 05:38:00 Test Item Value Reference Range Interpretation Comments PHOSPHORUS (BEAKER) 2.0 mg/dL 2.3-4.7 L Specimen slightly (test code = 604) hemolyzed CBC W/PLT COUNT & AUTO [id number] 05:14:00 Test Item Value Reference Range Interpretation [...] = 2801) RAD, CHEST, 1 VIEW, NON [id number] 03:01:00Reason for exam:->ETT verficiationShould this be performed [...] MDReport Verified Date/Time: 10/25/2016 03:01:35 Reading Location: [address] Reading Room TROPONIN [id number] 02:55:00 Test Item Value Reference Range Interpretation [...] Previous: 0.0-4.9CK-MB Reference Range:<6.7 Normal6.7-10.0 Borderline>10.0 AbnormalPOCT-GLUCOSE [id number] 00:18:00 Test Item Value Reference Range Interpretation Comments POC-GLUCOSE METER 103 mg/dL 70-110 TESTED AT [facility] [address] (BEAKER) (test code = [place] 1538) [address] BASIC METABOLIC [id number] 18:32:00 Test Item Value Reference Range Interpretation [...] m DATA TO CALCULA TE ESTIMATED GFR. [id number] 18:23:00 Test Item Value Reference Range Interpretation Comments PHOSPHORUS (BEAKER) (test code = 1.6 mg/dL 2.3-4.7 L 604) [id number] 18:23:00 Test Item Value Reference Range Interpretation Comments MAGNESIUM (BEAKER) (test code = 1.6 mg/dL 1.6-2.6 627) POCT-GLUCOSE [id number] 18:16:00 Test Item Value Reference Range Interpretation Comments POC-GLUCOSE METER 118 mg/dL 70-110 H TESTED AT [facility] [address] (BEAKER) (test code = [place] 1538) [address] TROPONIN [id number] 16:10:00 Test Item Value Reference Range Interpretation [...] 0.0-4.9CK-MB Reference Range:<6.7 Normal6.7-10.0 Borderline>10.0 AbnormalURINALYSIS W/ [id number] 15:35:00 Test Item Value Reference Range Interpretation [...] 516) SOURCE(BEAKER) (test code = Urine, [place] 6605) HEPATIC FUNCTION [id number] 15:06:00 Test Item Value Reference Range Interpretation [...] code = 8 U/L 6-55 347) PROTHROMBIN TIME/[id number] 14:53:00 Test Item Value Reference Range Interpretation Comments PROTIME (BEAKER) (test code = 17.0 seconds 11.7-14.7 H 759) INR (BEAKER) (test code = 370) 1.4 <=5.9 RECOMMENDED COUMADIN/WARFARIN INR THERAPY RANGESSTANDARD DOSE: 2.0 - 3.0 Includes: PROPHYLAXIS forvenous thrombosis, systemic embolization; TREATMENT for venous thrombosis and/or pulmonary embolus.HIGH RISK: Target INR is 2.5-3.5 for patients with mechanical heart valves.[id number] 14:53:00 Test Item Value Reference Range Interpretation Comments PARTIAL THROMBOPLASTIN TIME 33.9 seconds 22.5-36.0 (BEAKER) (test code = 760) BLOOD GAS, [id number] 14:44:00 Test Item Value Reference Range Interpretation [...]
[2019-08-29 11:32] LABS: AST/SGOT 16 U/L (15-37); Albumin 2.1 g/dL (3.4-5.0); Alkaline Phosphatase 89 U/L (45-117); BUN Blood Urea Nitrogen 34 mg/dL (7-18); Bicarbonate 29 mmol/L (21-32); Bilirubin Direct 0.1 mg/dL (0-0.2); Bilirubin Total 0.2 mg/dL (0.2-1.0); Creatine Phosphokinase 97 U/L (26-192); Glucose Level 130 mg/dL (74-106); Lipase 65 U/L (73-393); Potassium 3.1 mmol/L (3.5-5.1); Protein, Total 7.4 g/dL (6.4-8.2); Sodium Level 150 mmol/L (136-145); Troponin (Emerg Dept Use Only) < 0.02 ng/mL (0.0-0.045)
[2019-08-29 11:34] LABS: ALT/SGPT < 6 U/L (12-78)
[2019-08-29 11:54] LABS: Urine Bacteria >50 /HPF (<20); Urine Culture Reflex Order NOT NEEDED; Urine RBC >50 /HPF (NONE SEEN); Urine Yeast PRESENT (NONE SEEN)
--- NOTE | 2019-08-29 12:03 | RAD REPORT ---
EXAM DESCRIPTION: Jamir Single View08/29/2019 11:42 am CLINICAL HISTORY: Hypertension/atrial fibrillation COMPARISON: July 2019 FINDINGS: PICC line has its tip in the right atrium. Lungs appear clear of acute infiltrate. The heart is moderately enlarged
[2019-08-29 12:52] LABS: Blood Morphology Comment NOT SEEN (NOT SEEN); Platelet Estimate ADEQ
[2019-08-29] MEDS ORDERED: PANTOPRAZOLE 40 MG INJ ONE (13:10)
[2019-08-29] MEDS ORDERED: KCL 20 MEQ/100 mL IVPB 20 MEQ/100 ML BAG IV ONE (13:11)
[2019-08-29] MEDS ORDERED: PANTOPRAZOLE INJ 80 MG in NA CHLORIDE 0.9% 250 ML IV ONE (13:15)
--- NOTE | 2019-08-29 13:22 | EDPHYS ---
Physician Documentation [facility] Name: Lizette Evans Age: 88 yrs Sex: Female : 1930 Arrival Date: 08/29/2019 Time: 10:02 Bed 3 Private MD: ED Physician Peg Castelan HPI: 08/28 10:03 This 88 yrs old Black Female presents to ER via Unassigned with complaints of Altered cp Mental Status. 10:03 The patient presents with decreased responsiveness. cp 10:05 Onset: The symptoms/episode began/occurred at an unknown time. cp 10:05 Possible causes: sepsis, the patient has an indwelling Huntley catheter. Associated signs cp and symptoms: Pertinent positives: dark colored stools and low grade fever. Patient's baseline: Motor: no deficits, Ambulation: unable to walk, is bedridden, Speech: the patient makes incomprehensible sounds, patient is usually responsive to voice. Historical: - Allergies: 10:08 Nitrofurantoin; hb 10:08 PENICILLINS; hb - Home Meds: 10:08 allopurinol 100 mg Oral tab 2 tabs once daily [Active]; amlodipine 10 mg tab 1 tab once hb daily [Active]; atenolol 50 mg Oral tab 1 tab once daily [Active]; buspirone 10 mg Oral tab 1 tab 2 times per day [Active]; carbidopa-levodopa 25-100 mg Oral tab [Active]; Eliquis 2.5 mg Oral tab 1 tab 2 times per day [Active]; escitalopram oxalate 10 mg Oral tab 1 tab once daily [Active]; FeroSul 325 mg (65 mg iron) Oral tab daily [Active]; furosemide 40 mg Oral tab 1.5 tab once daily [Active]; galantamine 4 mg Oral tab 1 tab daily [Active]; Lamictal 150 mg Oral tab 2 times per day [Active]; lamotrigine 150 mg Oral tab 1 tab 2 times per day [Active]; levetiracetam 750 mg Oral tab 1 tab every morning [Active]; losartan 50 mg Oral tab 1 tab nightly [Active]; potassium chloride 10 mEq Oral cpER 1 cap once daily [Active]; Protonix 40 mg Oral TbEC [Active]; Risperdal 0.5 mg Oral tab 1 tab nightly [Active]; tolterodine 2 mg Oral tab 1 tab 2 times per day [Active]; - PMHx: 10:08 ADD/ADHD; Atrial Fib; CVA; Hypertension; DVT; Seizures; TIA; hb - Immunization history:: Adult Immunizations up to date. - Social history:: Smoking status: Patient denies any tobacco usage or history of. ROS: 10:03 Unable to obtain ROS due to altered mental status. cp Exam: 10:10 Head/Face: Normocephalic, atraumatic. cp 10:10 Constitutional: The patient appears non-diaphoretic, non-toxic, well developed, well nourished. 10:10 Eyes: Periorbital structures: appear normal, Pupils: equal, round, and reactive to light and accomodation, Conjunctiva: normal, no exudate, no injection, Sclera: no appreciated abnormality, Lids and lashes: appear normal, bilaterally. 10:10 ENT: External ear(s): are unremarkable, Nose: is normal, Mouth: Lips: moist, Oral mucosa: moist, Posterior pharynx: Airway: no evidence of obstruction, patent. 10:10 Neck: ROM/movement: Meningeal signs: are not present, nuchal rigidity, is not appreciated. 10:10 Chest/axilla: Inspection: normal, Palpation: is normal, no crepitus, no tenderness. 10:10 Cardiovascular: Rate: normal, Rhythm: regular, Edema: is not appreciated, JVD: is not appreciated. 10:10 Respiratory: the patient does not display signs of respiratory distress, Respirations: cp normal, no use of accessory muscles, no retractions, no tachypnea, labored breathing, is not present, Breath sounds: bronchial sounds, that are mild, are heard diffusely, stridor, is not appreciated, wheezing: is not appreciated. 10:10 Abdomen/GI: Inspection: abdomen appears normal, Bowel sounds: active, all quadrants, Palpation: abdomen is soft and non-tender, in all quadrants, involuntary guarding, is not appreciated. 10:10 Skin: cellulitis, is not appreciated, no rash present. 10:10 Neuro: Mentation: responsive to pain. 11:20 ECG was reviewed by the Attending Physician. cp Vital Signs: 10:02 BP 95 / 53; Pulse 83; Resp 16; Temp 100.2(TE); Pulse Ox 97% on R/A; Weight 80 kg; Pain hb 5/10; 11:00 BP 94 / 49; Pulse 80; Resp 26; Pulse Ox 98% on R/A; hb 12:00 BP 101 / 51; Pulse 80; Resp 19; Pulse Ox 98% on R/A; hb 13:00 BP 113 / 95; Pulse 74; Resp 20; Temp 99; Pulse Ox 99% ; hb 13:30 BP 101 / 46; Pulse 72; Resp 20; Pulse Ox 99% on R/A; hb 14:00 BP 95 / 50; Pulse 74; Resp 27; Pulse Ox 100% ; hb 14:30 BP 96 / 52; Pulse 70; Resp 23; Pulse Ox 100% ; hb 15:00 BP 108 / 50; Pulse 72; Resp 25; Temp 98.7(TE); Pulse Ox 98% on R/A; hb 15:30 BP 94 / 46; Pulse 70; Resp 20; Pulse Ox 98% ; hb 16:00 BP 87 / 48; Pulse 70; Resp 17; Pulse Ox 100% on R/A; hb 16:30 BP 94 / 51; Pulse 70; Resp 22; Pulse Ox 98% on R/A; hb 16:45 BP 83 / 48; Pulse 69; hb 17:00 BP 86 / 49; Pulse 69; hb 17:15 BP 94 / 56; Pulse 73; Resp 18; Pulse Ox 100% ; hb 17:30 BP 91 / 57; Pulse 74; hb 17:45 BP 98 / 55; Pulse 74; hb 18:00 BP 103 / 54; Pulse 77; Resp 20; Temp 99; Pulse Ox 99% ; hb 18:15 BP 107 / 54; Pulse 78; hb 19:50 BP 107 / 60; Pulse 75; Resp 19; Temp 96.7; Pulse Ox 99% on R/A; mg2 20:10 BP 115 / 70; Pulse 76; Resp 18; Temp 96.8(TE); Pulse Ox 99% on 2 lpm NC; mg2 21:15 BP 92 / 55; Pulse 72; Resp 19; Temp 96.9(TE); Pulse Ox 99% on R/A; mg2 21:35 BP 122 / 77; Pulse 73; Resp 19; Temp 96.7; Pulse Ox 99% on R/A; mg2 23:22 BP 96 / 52; Pulse 67; Resp 18; Pulse Ox 100% on R/A; mg2 23:34 BP 107 / 56; Pulse 67; Resp 18; Pulse Ox 100% on R/A; mg2 / 00:52 BP 113 / 66; Pulse 68; Resp 19; Temp 96.8(TE); Pulse Ox 100% on R/A; mg2 01:03 BP 115 / 65; Pulse 67; Resp 19; Temp 96.8; Pulse Ox 100% on R/A; mg2 02:00 BP 109 / 64; Pulse 65; Resp 18; Pulse Ox 100% on R/A; mg2 02:16 BP 116 / 55; Pulse 67; Resp 19; Pulse Ox 100% on R/A; mg2 03:39 BP 106 / 55; Pulse 69; Resp 18; Pulse Ox 100% on R/A; mg2 03:49 BP 124 / 60; Pulse 69; Resp 18; Pulse Ox 100% on R/A; mg2 04:24 BP 111 / 74; Pulse 68; Resp 20; Temp 96.9; Pulse Ox 100% on R/A; mg2 05:06 BP 110 / 66; Pulse 69; Resp 20; Temp 96.9; Pulse Ox 98% on R/A; mg2 06:10 BP 116 / 61; Pulse 70; Resp 18; Temp 96.9(TE); Pulse Ox 100% on R/A; mg2 07:39 BP 110 / 59; Pulse 74; Resp 23; Temp 97.9(TE); Pulse Ox 99% ; hb 08:15 BP 115 / 61; Pulse 71; Resp 22; Temp 97.2; Pulse Ox 98% on 2 lpm NC; hb 08/28 10:02 Elyssa (FACES) hb MDM: 08/28 10:09 Patient medically screened. 12:35 Data reviewed: vital signs, nurses notes, lab test result(s), EKG, I have discussed the cp patient's presentation/case with the attending Emergency Department Physician;. 12:35 Test interpretation: by ED physician or midlevel provider: ECG. cp 13:01 Physician consultation: was contacted at 13:01, regarding regarding transfer, to [facility]. DR Lord, GI physician, requests transfer to ICU. 13:20 Physician consultation: was contacted at 13:10, regarding regarding transfer, to [facility]. patient's condition, DR Morse, precision instrument maker, will accept patient as transfer. 08/28 10:08 Order name: Urine Culture 08/28 10:08 Order name: Basic Metabolic Panel; Complete Time: 11:39 08/28 11:39 Interpretation: Normal except: NA 150; K 3.1; CL 115; GLUC 130; BUN 34; CRE 2.07; GFR cp 27. 08/28 10:08 Order name: Blood Culture Adult (2) 08/28 10:08 Order name: CBC with Diff; Complete Time: 12:59 08/28 11:40 Interpretation: Normal except: WBC 22.1; RBC 3.03; HGB 9.0; HCT 29.5; MCHC 30.5; PLT cp 393; RDW 16.8; TRANG% 82.4; LYM% 10.3; NEUT A 18.2; MNA 1.4. 08/28 10:08 Order name: CPK; Complete Time: 11:39 08/28 10:08 Order name: Lactate; Complete Time: 11:39 08/28 11:41 Interpretation: LAC 0.8; Reviewed. 08/28 10:08 Order name: LFT's; Complete Time: 11:39 08/28 10:08 Order name: Lipase; Complete Time: 11:39 08/28 10:08 Order name: Procalcitonin; Complete Time: 11:54 08/28 11:54 Interpretation: Abnormal: Procalcitonin 0.67. 08/28 10:08 Order name: Protime (+inr); Complete Time: 11:39 08/28 11:40 Interpretation: Reviewed. 08/28 10:08 Order name: Ptt, Activated; Complete Time: 11:39 08/28 10:08 Order name: Troponin (emerg Dept Use Only); Complete Time: 11:39 08/28 11:41 Interpretation: TROPED < 0.02; Reviewed. 08/28 10:08 Order name: Urine Microscopic Only; Complete Time: 12:22 08/28 12:23 Interpretation: Reviewed. 08/28 10:08 Order name: Influenza Screen (a \T\ B); Complete Time: 11:39 08/28 10:08 Order name: Chest Single View XRAY; Complete Time: 12:22 08/28 12:23 Interpretation: Report review. cp 08/28 10:08 Order name: Type And Screen cp 08/28 10:08 Order name: COVID-19; Complete Time: 17:43 cp 08/28 11:24 Order name: Urine Dipstick--Ancillary (enter results); Complete Time: 07:21 bd 08/28 12:47 Order name: Occult Blood--Ancillary; Complete Time: 17:43 bd 08/28 12:53 Order name: Manual Differential; Complete Time: 12:59 EDMS 08/28 16:29 Order name: Hematocrit; Complete Time: 17:43 cp 08/28 16:29 Order name: Hemoglobin; Complete Time: 17:43 cp 08/28 16:40 Order name: Bb Add On ss 08/28 16:51 Order name: Packed RBCs (Additional Unit) EDTN 08/29 04:25 Order name: CBC with Diff; Complete Time: 07:21 mg2 08/29 08:08 Order name: Glucose, Ancillary Testing EDTN 08/29 08:09 Order name: Glucose, Ancillary Testing EDTN 08/28 10:08 Order name: Accucheck; Complete Time: 11:28 cp 08/28 10:08 Order name: Cardiac monitoring; Complete Time: 11:28 cp 08/28 10:08 Order name: EKG - Nurse/Tech; Complete Time: 11:28 cp 08/28 10:08 Order name: IV Saline Lock - Large Bore; Complete Time: 11:28 cp 08/28 10:08 Order name: Labs collected and sent; Complete Time: 11:28 cp 08/28 10:08 Order name: O2 Per Protocol; Complete Time: 11:28 cp 08/28 10:08 Order name: O2 Sat Monitoring; Complete Time: 11:28 cp 08/28 10:08 Order name: Urine Dipstick-Ancillary (obtain specimen); Complete Time: 11:28 cp 08/28 14:35 Order name: EKG Electrocardiogram EDTN 08/28 17:43 Order name: Transfuse; Complete Time: 20:05 cp EC:20 Rate is 79 beats/min. Rhythm is regular. VT interval is normal. QRS interval is normal. cp QT interval is normal. Interpreted by me. Reviewed by me. Administered Medications: 10:55 Drug: NS 0.9% (30 ml/kg) 30 ml/kg Route: IV; Rate: bolus; Site: PICC; hb 12:15 Follow up: Response: No adverse reaction; IV Status: Completed infusion; IV Intake: hb 2400ml 10:55 Drug: Tylenol Suppository 650 mg Route: VT; hb 12:00 Follow up: Response: No adverse reaction; Temperature is decreased hb 10:55 Drug: Cefepime 1 grams Route: IVPB; Rate: 200 ml/hr; Infused Over: 30 mins; Site: PICC; hb 11:59 Follow up: Response: No adverse reaction; IV Status: Completed infusion; IV Intake: hb 100ml 11:45 Drug: vancoMYCIN 1 grams Route: IVPB; Infused Over: 2 hrs; Site: PICC; hb 13:45 Follow up: Response: No adverse reaction; IV Status: Completed infusion; IV Intake: hb 100ml 13:25 Drug: ProTONIX 40 mg Route: IVP; Site: PICC; hb 14:00 Follow up: Response: No adverse reaction hb 13:29 Drug: Potassium Chloride 20 mEq Route: IV; Rate: calculated rate; Site: PICC; hb 14:32 Follow up: Response: No adverse reaction; IV Status: Completed infusion; IV Intake: hb 100ml 13:29 Drug: ProTONIX 8 mg/hr Route: IV; Rate: 25 ml/hr; Site: PICC; hb 08/29 01:11 Follow up: Response: No adverse reaction; IV Status: Completed infusion; IV Intake: mg2 250ml 08/28 13:53 Drug: Ativan 0.5 mg Route: IVP; Site: PICC; hb 14:30 Follow up: Response: No adverse reaction hb 16:09 Drug: NS 0.9% 1000 ml Route: IV; Rate: 100 ml/hr; Site: PICC; hb 21:15 Follow up: Response: No adverse reaction; IV Status: Completed infusion; IV Intake: mg2 1000ml 17:09 Drug: Norepinephrine (4 mg/250 mL D5W) 4 mcg/min Route: IV; Rate: calculated rate; hb Site: PICC; 08/29 01:10 Follow up: Response: No adverse reaction; IV Status: Completed infusion mg2 01:30 Drug: ProTONIX 8 mg/hr Route: IV; Rate: 25 ml/hr; Site: right upper arm; mg2 Disposition: 08/28 13:30 Chart complete. cp Disposition: 08/29/19 13:21 Transfer ordered to [facility]. Diagnosis are Altered mental status, unspecified, Other sepsis, Gastrointestinal hemorrhage, unspecified, Anemia in chronic diseases classified elsewhere. - Reason for transfer: Higher level of care. - Accepting physician is DR Morse. - Condition is Stable. - Problem is new. - Symptoms have improved. Addendum: 09/04/2019 02:27 Co-signature as Attending Physician, Peg Castelan MD. m a2 Signatures: Dispatcher [employer] EDMS Connor Burton MD MD rn Tacos Ballesteros PA PA cp Veronica Coffey, RN RN hb Presley Fisher RN RN bp Peg Castelan MD MD ma2 Norman Otoole RN RN mg2 Corrections: (The following items were deleted from the chart) 08/28 11:40 11:40 Normal except: WBC 22.1; RBC 3.03; HGB 9.0; HCT 29.5; MCHC 30.5; PLT 393; RDW cp 16.8; TRANG% 82.4; LYM% 10.3; NEUT A 18.2. cp 12:46 10:08 Home Meds: levetiracetam 750 mg Oral tab 0.5 tab every evening; hb hb 12:46 10:08 Home Meds: warfarin 2 mg Oral tab 1 tab; hb hb 08/29 09:36 08/28 13:21 08/29/2019 13:21 Transfer ordered to [facility]. hb Diagnosis is Altered mental status, unspecified; Other sepsis; Gastrointestinal hemorrhage, unspecified; Anemia in chronic diseases classified elsewhere. Reason for transfer: Higher level of care. Accepting physician is DR Morse. Condition is Stable. Problem is new. Symptoms have improved. cp
--- NOTE | 2019-08-29 13:22 | ER ---
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 SBP 70s, hb T101, BGL 137. Coronavirus screen: Proceed with normal triage. Ebola Screen: No symptoms or risks identified at this time. Initial Sepsis Screen: Does the patient meet any 2 criteria? Temp <36.0*C (96.8*F)) or > 38.3*C (100.9*F). Does the patient have a suspected source of infection? No. Patient's initial sepsis screen is negative. Risk Assessment: Do you want to hurt yourself or someone else? Patient reports no desire to harm self or others. Onset of symptoms was August 29, 2019. 10:02 Method Of Arrival: EMS[facility] hb 10:02 Acuity: ERICKA 2 hb Triage Assessment: 10:05 General: Appears in no apparent distress. Behavior is calm. Pain: Unable to use pain hb scale. FLACC scale score is 5 out of 10. EENT: No signs and/or symptoms were reported regarding the EENT system. Neuro: Level of Consciousness is lethargic, Oriented to person. Cardiovascular: Capillary refill < 3 seconds Patient's skin is warm and dry. Respiratory: Airway is patent Respiratory effort is labored, Respiratory pattern is regular, symmetrical. GI: No signs and/or symptoms were reported involving the gastrointestinal system. : No signs and/or symptoms were reported regarding the genitourinary system. Derm: Skin is pink, warm \\T\\ dry. Musculoskeletal: No signs and/or symptoms reported regarding the musculoskeletal system. Historical: - Allergies: 10:08 Nitrofurantoin; hb 10:08 PENICILLINS; hb - Home Meds: 10:08 allopurinol 100 mg Oral tab 2 tabs once daily [Active]; amlodipine 10 mg tab 1 tab once hb daily [Active]; atenolol 50 mg Oral tab 1 tab once daily [Active]; buspirone 10 mg Oral tab 1 tab 2 times per day [Active]; carbidopa-levodopa 25-100 mg Oral tab [Active]; Eliquis 2.5 mg Oral tab 1 tab 2 times per day [Active]; escitalopram oxalate 10 mg Oral tab 1 tab once daily [Active]; FeroSul 325 mg (65 mg iron) Oral tab daily [Active]; furosemide 40 mg Oral tab 1.5 tab once daily [Active]; galantamine 4 mg Oral tab 1 tab daily [Active]; Lamictal 150 mg Oral tab 2 times per day [Active]; lamotrigine 150 mg Oral tab 1 tab 2 times per day [Active]; levetiracetam 750 mg Oral tab 1 tab every morning [Active]; losartan 50 mg Oral tab 1 tab nightly [Active]; potassium chloride 10 mEq Oral cpER 1 cap once daily [Active]; Protonix 40 mg Oral TbEC [Active]; Risperdal 0.5 mg Oral tab 1 tab nightly [Active]; tolterodine 2 mg Oral tab 1 tab 2 times per day [Active]; - PMHx: 10:08 ADD/ADHD; Atrial Fib; CVA; Hypertension; DVT; Seizures; TIA; hb - Immunization history:: Adult Immunizations up to date. - Social history:: Smoking status: Patient denies any tobacco usage or history of. Screenin:08 Abuse screen: Denies threats or abuse. Denies injuries from another. Nutritional hb screening: No deficits noted. Tuberculosis screening: No symptoms or risk factors identified. Fall Risk Total Vega Fall Scale indicates High Risk Score (45 or more points). Fall prevention measures have been instituted. Side Rails Up X 2 Frequent Obs/Assessments Occuring As available patient and family educated on Fall Prevention Program and Strategies. Assessment: 10:05 General: see triage. hb 11:00 Reassessment: Pt resting with eyes closed, SBP remains in the 90s, PA Page aware. No hb new orders at this time. 12:00 Reassessment: Pt restless, moaning loudly, PA Page notified, no new orders at this hb time. Pt repositioned, lights turned down. Bed locked in low position. Awaiting lab result at this time. 13:00 Reassessment: No changes from previously documented assessment. Remains loudly moaning, hb SBP 90s-low 100s, PA Page aware. No new orders at this time. 13:45 Reassessment: Pt agitated, moaning loudly, PA Page notified, Ativan administered as hb ordered. 14:30 Reassessment: Pt resting with eyes closed, SBP 80-90s, respirations even and unlabored hb on RA. PA Page aware. 15:30 Reassessment: Patient appears in no apparent distress at this time. No changes from hb previously documented assessment. 16:30 Reassessment: Patient appears in no apparent distress at this time. No changes from hb previously documented assessment. PA Page aware of BP. 17:15 Reassessment: SBP 80s-90s, PA page notified again, Levophed started at 5mcg/min. hb 18:06 Reassessment: Pt resting with eyes closed, arouses to verbal stimuli, answers yes or no hb to simple questions. Levophed infusing 10 mcg/min. Awaiting room assignment at this time. 18:25 Reassessment: Daughters Katelin [phone], Gsiel [phone]. hb 19:10 Reassessment: blood transfusion consent was called to Katelin (daughter) -consented to mg2 give the blood to the patient. me and DANELLE Martin verified the consent via telephone. 21:14 Reassessment: Patient appears in no apparent distress at this time. Patient and/or mg2 family updated on plan of care and expected duration. Pain level reassessed. 08/29 00:51 Reassessment: Patient appears in no apparent distress at this time. Patient and/or mg2 family updated on plan of care and expected duration. Pain level reassessed. dressing done by ANEUDY Hawkins in the buttocks. 2nd degree pressure sores noted on each buttocks. 03:49 Reassessment: Patient appears in no apparent distress at this time. patient sleeping. mg2 04:23 Reassessment: patient might be transferred to [facility] in the morning due to mg2 unavailability of ICU bed. 06:11 Reassessment: Patient appears in no apparent distress at this time. mg2 07:28 Reassessment: Dr. Burton, Charge Nurse Nikki PISANO, and ED Director Alexys notified pt hb transfer to [facility] ICU still pending, awaiting plan update at this time. Pt awake, alert, AOx1-2, VSS. NAD. 08:15 Reassessment: Report called to Patricia PISANO at [facility]. hb 08:20 Reassessment: BGL 91, Dr. Burton notified, no new orders oat this time. VSS. Protonix hb and NS infusing to RUE PICC. Vital Signs: 08/28 10:02 BP 95 / 53; Pulse 83; Resp 16; Temp 100.2(TE); Pulse Ox 97% on R/A; Weight 80 kg; Pain hb 5/10; 11:00 BP 94 / 49; Pulse 80; Resp 26; Pulse Ox 98% on R/A; hb 12:00 BP 101 / 51; Pulse 80; Resp 19; Pulse Ox 98% on R/A; hb 13:00 BP 113 / 95; Pulse 74; Resp 20; Temp 99; Pulse Ox 99% ; hb 13:30 BP 101 / 46; Pulse 72; Resp 20; Pulse Ox 99% on R/A; hb 14:00 BP 95 / 50; Pulse 74; Resp 27; Pulse Ox 100% ; hb 14:30 BP 96 / 52; Pulse 70; Resp 23; Pulse Ox 100% ; hb 15:00 BP 108 / 50; Pulse 72; Resp 25; Temp 98.7(TE); Pulse Ox 98% on R/A; hb 15:30 BP 94 / 46; Pulse 70; Resp 20; Pulse Ox 98% ; hb 16:00 BP 87 / 48; Pulse 70; Resp 17; Pulse Ox 100% on R/A; hb 16:30 BP 94 / 51; Pulse 70; Resp 22; Pulse Ox 98% on R/A; hb 16:45 BP 83 / 48; Pulse 69; hb 17:00 BP 86 / 49; Pulse 69; hb 17:15 BP 94 / 56; Pulse 73; Resp 18; Pulse Ox 100% ; hb 17:30 BP 91 / 57; Pulse 74; hb 17:45 BP 98 / 55; Pulse 74; hb 18:00 BP 103 / 54; Pulse 77; Resp 20; Temp 99; Pulse Ox 99% ; hb 18:15 BP 107 / 54; Pulse 78; hb 19:50 BP 107 / 60; Pulse 75; Resp 19; Temp 96.7; Pulse Ox 99% on R/A; mg2 20:10 BP 115 / 70; Pulse 76; Resp 18; Temp 96.8(TE); Pulse Ox 99% on 2 lpm NC; mg2 21:15 BP 92 / 55; Pulse 72; Resp 19; Temp 96.9(TE); Pulse Ox 99% on R/A; mg2 21:35 BP 122 / 77; Pulse 73; Resp 19; Temp 96.7; Pulse Ox 99% on R/A; mg2 23:22 BP 96 / 52; Pulse 67; Resp 18; Pulse Ox 100% on R/A; mg2 23:34 BP 107 / 56; Pulse 67; Resp 18; Pulse Ox 100% on R/A; mg2 08/29 00:52 BP 113 / 66; Pulse 68; Resp 19; Temp 96.8(TE); Pulse Ox 100% on R/A; mg2 01:03 BP 115 / 65; Pulse 67; Resp 19; Temp 96.8; Pulse Ox 100% on R/A; mg2 02:00 BP 109 / 64; Pulse 65; Resp 18; Pulse Ox 100% on R/A; mg2 02:16 BP 116 / 55; Pulse 67; Resp 19; Pulse Ox 100% on R/A; mg2 03:39 BP 106 / 55; Pulse 69; Resp 18; Pulse Ox 100% on R/A; mg2 03:49 BP 124 / 60; Pulse 69; Resp 18; Pulse Ox 100% on R/A; mg2 04:24 BP 111 / 74; Pulse 68; Resp 20; Temp 96.9; Pulse Ox 100% on R/A; mg2 05:06 BP 110 / 66; Pulse 69; Resp 20; Temp 96.9; Pulse Ox 98% on R/A; mg2 06:10 BP 116 / 61; Pulse 70; Resp 18; Temp 96.9(TE); Pulse Ox 100% on R/A; mg2 07:39 BP 110 / 59; Pulse 74; Resp 23; Temp 97.9(TE); Pulse Ox 99% ; hb 08:15 BP 115 / 61; Pulse 71; Resp 22; Temp 97.2; Pulse Ox 98% on 2 lpm NC; hb 08/28 10:02 Elyssa (FACES) hb ED Course: 08/28 10:02 Patient arrived in ED. hb 10:02 Tacos Ballesteros PA is PHCP. cp 10:02 Peg Castelan MD is Attending Physician. cp 10:04 Triage completed. hb 10:08 Arm band placed on. hb 10:09 Patient has correct armband on for positive identification. Bed in low position. Call light in reach. Side rails up X2. quality assurance monitor on. Pulse ox on. NIBP on. 11:27 Veronica Coffey, RN is Primary Nurse. hb 11:27 Chest Single View XRAY Sent. hb 11:43 Chest Single View XRAY In Process Unspecified. EDMS 13:[address] [facility], no icu bed available at this time. one will bd be available in a couple of hrs, talked to payam ballesteros, he states that is ok for the patient to wait for icu bed. Mariana Hardin will call back when bed becomes available. 16:[address] [facility] called, states icu bed still isnt available. bd 16:08 attempted transfer to [facility], pt denied for lack of capacity at any of the [facility] hospitals, per Ketty. 16:12 attempted transfer to [facility], pt denied due to no icu beds available. per cheo. 16:15 attempted transfer to [facility]. bd 16:43 pt denied at [facility] due to lack of capacity, per lorri saldaña. bd 16:49 attempted transfer to [facility]. bd 17:[address] [facility] for lack of capacity,per Lior. bd 17:[address] [facility], talked to Mariana Hardin, still waiting on icu bed to become available. 18:36 talked with pts family, they are of why pt is still in er, informed them that i had attempted to transfer pt to another hospitals, they prefer pt to go to [facility]. 18:49 talked to Mariana Hardin at [facility], pt is still on the list to get a icu bed, hospital is now on saturation until 1100. 19:50 Inserted saline lock: 20 gauge in left wrist, using aseptic technique. mg2 20:05 No provider procedures requiring assistance completed. mg2 21:35 Patient transferred, IV remains in place. mg2 22:17 called [facility] spoke with Denisha Child to get status update on transfer. she mw2 stated "still no beds". 23:35 Bettie Vasquez called me from [facility] to notify me that they "will not have any beds mw2 tonight maybe in the morning but we will keep her on the waiting list.". 08/29 00:53 Door closed. Warm blanket given. Cleaned of incontinence. mg2 05:00 Notified ED physician of a critical lab result(s). WBC of 23.3 Notified primary nurse sg of. Administered Medications: 08/28 10:55 Drug: NS 0.9% (30 ml/kg) 30 ml/kg Route: IV; Rate: bolus; Site: PICC; hb 12:15 Follow up: Response: No adverse reaction; IV Status: Completed infusion; IV Intake: hb 2400ml 10:55 Drug: Tylenol Suppository 650 mg Route: CT; hb 12:00 Follow up: Response: No adverse reaction; Temperature is decreased hb 10:55 Drug: Cefepime 1 grams Route: IVPB; Rate: 200 ml/hr; Infused Over: 30 mins; Site: PICC; hb 11:59 Follow up: Response: No adverse reaction; IV Status: Completed infusion; IV Intake: hb 100ml 11:45 Drug: vancoMYCIN 1 grams Route: IVPB; Infused Over: 2 hrs; Site: PICC; hb 13:45 Follow up: Response: No adverse reaction; IV Status: Completed infusion; IV Intake: hb 100ml 13:25 Drug: ProTONIX 40 mg Route: IVP; Site: PICC; hb 14:00 Follow up: Response: No adverse reaction hb 13:29 Drug: Potassium Chloride 20 mEq Route: IV; Rate: calculated rate; Site: PICC; hb 14:32 Follow up: Response: No adverse reaction; IV Status: Completed infusion; IV Intake: hb 100ml 13:29 Drug: ProTONIX 8 mg/hr Route: IV; Rate: 25 ml/hr; Site: PICC; hb 08/29 01:11 Follow up: Response: No adverse reaction; IV Status: Completed infusion; IV Intake: mg2 250ml 08/28 13:53 Drug: Ativan 0.5 mg Route: IVP; Site: PICC; hb 14:30 Follow up: Response: No adverse reaction hb 16:09 Drug: NS 0.9% 1000 ml Route: IV; Rate: 100 ml/hr; Site: PICC; hb 21:15 Follow up: Response: No adverse reaction; IV Status: Completed infusion; IV Intake: mg2 1000ml 17:09 Drug: Norepinephrine (4 mg/250 mL D5W) 4 mcg/min Route: IV; Rate: calculated rate; hb Site: PICC; 08/29 01:10 Follow up: Response: No adverse reaction; IV Status: Completed infusion mg2 01:30 Drug: ProTONIX 8 mg/hr Route: IV; Rate: 25 ml/hr; Site: right upper arm; mg2 Medication: 08/28 19:55 Blood products: PRBCs X 1 unit given. See transfusion record. mg2 22:05 Blood products: PRBCs X 1 unit given. See transfusion record. mg2 Intake: 11:59 IV: 100ml; Total: 100ml. hb 12:15 IV: 2400ml; Total: 2500ml. hb 13:45 IV: 100ml; Total: 2600ml. hb 14:32 IV: 100ml; Total: 2700ml. hb 21:15 IV: 1000ml; Total: 3700ml. mg2 08/29 01:11 IV: 250ml; Total: 3950ml. mg2 01:12 bloody urine noted mg2 Output: 01:12 Urine: 500ml ([place]); Total: 500ml. mg2 01:12 bloody urine noted mg2 Outcome: 08/28 13:21 ER care complete, transfer ordered by . thelma 08/29 09:36 Patient left the ED. hb Signatures: Dispatcher [employer] EDMS Debbie Chaudhry Steven, RN RN sg Page, Corey, PA PA Veroinca Coffey RN RN Kaity Whitley 2 Norman Otoole RN RN mg2 Corrections: (The following items were deleted from the chart) 08/28 12:46 10:08 Home Meds: levetiracetam 750 mg Oral tab 0.5 tab every evening; hb hb 12:46 10:08 Home Meds: warfarin 2 mg Oral tab 1 tab; hb hb 12:51 12:00 BP 124 / 5; hb hb 20:33 20:32 BP 107 / 60; Pulse 75bpm; Resp 19bpm; Pulse Ox 99% RA; Temp 96.7F; mg2 mg2 08/29 05:02 05:00 Notified ED physician of a critical lab result(s). WBC of 20.3 Notified primary sg nurse of 06:11 08/28 23:21 Reassessment: Patient appears in no apparent distress at this time. Patient mg2 is alert, oriented x 3, equal unlabored respirations, skin warm/dry/pink. mg2
[2019-08-29] MEDS ORDERED: LORazepam 2 MG/ML VIAL ONE (13:58)
[2019-08-29] MEDS ORDERED: NA CHLORIDE 0.9% 1,000 ML ONE (16:12)
[2019-08-29] MEDS ORDERED: NOREPINEPHRINE 4mg/D5W 250mL 4 MG/250 ML BAG IV ONE (17:01)
[2019-08-29 17:34] LABS: Hematocrit 23.3 % (36.0-45.0)
[2019-08-29 18:54] LABS: Urine Blood 3+ (NEG); Urine Glucose NEGATIVE (NEG); Urine Protein 3+ (NEG); Urine pH 5.5 (5.0-7.0)
[2019-08-29] MEDS ORDERED: NA CHLORIDE 0.9% 500 ML ONE (19:45)
[2019-08-30] MEDS ORDERED: NA CHLORIDE 0.9% 250 ML ONE (01:48)
[2019-08-30] MEDS ORDERED: PANTOPRAZOLE 40 MG INJ ONE (01:48)
[2019-08-30 04:53] LABS: Absolute Lymphocytes (CBC) 1.3 K/uL (0.7-4.9); Basophils % 0.4 % (0-1.3); Hematocrit 36.7 % (36.0-45.0); Lymphocytes % 5.7 % (15.3-44.8); MPV 7.2 fL (7.6-11.3); RBC Red Blood Cell Count 3.87 M/uL (3.86-4.86)
[2019-08-30] MEDS ORDERED: NA CHLORIDE 0.9% 1,000 ML ONE (07:42)
[2019-08-30 10:32] VITALS: TEMP 96.9
[2019-08-30 10:34] VITALS: BP 110/66; O2SAT 98
== END 2019-08-30 09:36 | disposition short-term general hospital (02) ==
LOC: ER 09:55
PROC: 30233N1 Transfusion of Nonautologous Red Blood Cells into Peripheral Vein, Percutaneous Approach (ICD-10-PCS; principal; 2019-08-30)
DX: A41.89 Other specified sepsis (principal); D64.9 Anemia, unspecified; K92.2 Gastrointestinal hemorrhage, unspecified; Z88.0 Allergy status to penicillin; Z88.8 Allergy status to other drugs, medicaments and biological substances; I10 Essential (primary) hypertension; I48.91 Unspecified atrial fibrillation; Z79.01 Long term (current) use of anticoagulants; Z86.73 Personal history of transient ischemic attack (TIA), and cerebral infarction without residual deficits; G40.909 Epilepsy, unspecified, not intractable, without status epilepticus
CPT/HCPCS: 36415; 36430; 71045; 80048; 80076; 81003; 81015; 82272; 82550; 82947; 83605; 83690; 84145; 84484; 85014; 85018; 85025; 85610; 85730; 86850; 86900; 86901; 87040; 87086; 87088; 87205; 87804; 93005; 96365; 96366; 96367; 96368; 99285; C9113; J3370; J7030; J7040; P9016; U0002

== ENCOUNTER 2019-09-01 22:27 | Inpatient (IN) | payer OTHER ==
--- OUTSIDE RECORDS SUMMARY | 2019-09-01 22:31 | XMS REPORT | Clinical Summary ---
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 automated exposure control, adjustment of the mA and/or kV according to patient size and/or use of interactive reconstruction technique. COMMENT: Liver and spleen are normal in size without focal abnormality. Gallbladder is contracted. Multiple small gallstones are present. No biliary dilatation is no hitesh. Pancreas and adrenals are unremarkable. Both kidneys are normal in size. No hydr onephrosis, hydroureter, urolithiasis is seen. A 2.1 x 2.6 cm cys t is seen in the upper pole right kidney. A 1.5 x 2 cm cyst is seen in the inferior pole left kidney. A peripheral calcified hypodense lesion is seen in the inferior pole left kidney measuring 1.1 cm in size. A 5 x 12 mm stone is seen in the inferior pole left kidney . A 2 mm stone is seen in the inferior pole right kidney. A double-J ureteral stent is seen on the left. No hydronephrosis or hydroureter is seen. Diverticular disease is seen in the larg e bowel without diverticulitis. Small bowel and appendix are normal in caliber. Wall thickening is seen in the distal si gmoid colon and rectum suggestive of proctocolitis. There is so ft tissue stranding in the presacral pelvis and perirectal fascia. IMPRESSION: 1. Findings suggestive of proctocolitis. 2. Diverticulosis. 3. Bilateral renal cysts and peripheral calcified cystic lesion in the inferior pole left kidney. 4. Bilateral renal stones with posterior left ureteral stent without hydronephrosis. 5. Cholelithiasis without biliary dilata tion. Signed: Theresa Verde MD Report Verified Date/Time: 08/30/2019 1 7:31:27 Reading Location: [facility] B1 C013Y CT [facility] Room Performing Organization Address City/State/Zipcode Phone Number GE RIS Urinalysis w/Microscopic + Reflex to Culture (08/30/2019 3:36 PM CDT) Color, UA [place] [facility] Clarity, UA Hazy [facility] Specific [employer], UA 1.016 1.001 - 1.035 [facility] pH, UA 6.5 5.0 - 8.[address] [facility] Protein, UA 200 mg/dL (A) Negative [facility] Glucose, UA Negative Negative [facility] Ketones, UA Trace (A) Negative [facility] Bilirubin, UA Negative Negative [facility] Blood, UA Large (A) Negative [facility] Nitrite, UA Negative Negative [facility] Leukocytes, UA Large (A) Negative [facility] Urobilinogen, UA 0.2 0.2 - 1.0 mg/dL [facility] RBC, UA 701 /HPF [facility] WBC, UA 44 /HPF [facility] Mucus Rare [facility] Squam Epithel, UA 2 /HPF [facility] Specimen Source [facility] Specimen Urine Narrative Performed At Handicapped Teacher ID - [auto] [facility] Handicapped Teacher ID - tech Performing Organization Address City/State/Zipcode Phone Number [facility] [address] [place] [address] CENTER US renal complete (08/30/2019 2:07 PM CDT) Specimen Narrative Performed At FINAL REPORT [employer] TECHNIQUE: Grayscale ultrasound of the k idneys and bladder. INDICATION: hematuria. COMPARISON: None. FINDINGS: RIGHT KIDNEY: The right kidney measures 8.7 x 4.5 x 3.7 cm with a cortical thickness of 0.8 cm. Mildly hyp erechoic cortex. No solid mass lesions. No hydronephrosis. Renal a rtery and vein are patent. A right upper pole anechoic renal lesion w ith posterior acoustic enhancement measures 2 x 2.7 x 2.2 cm. N o routine follow-up imaging is recommended. LEFT KIDNEY: The left kidney measures 9. 1 x 5.2 x 4.1 cm with a cortical thickness of 1.1 cm. No solid m ass lesions. No hydronephrosis. Renal artery and vein ar e patent. A hyperechoic focus in the left lower pole with posterior ac oustic shadowing measures 1 cm. BLADDER: Not visualized. IMPRESSION: 1.A left lower pole renal stone measures 1 cm. 2.The right kidney is small, and the cor tices are mildly hyperechoic. This can be seen with chronic medical re nal disease. Signed: Neri Kim MD Report Verified Date/Time:08/30/2019 16:20:28 Reading Location: [address] Radiolog [address] Reading Room Procedure Note Interface, External Ris In - 08/30/2019 4:22 PM CDT FINAL REPORT TECHNIQUE: Grayscale ultrasound of the k idneys and bladder. INDICATION: hematuria. COMPARISON: None. FINDINGS: RIGHT KIDNEY: The right kidney measures 8.7 x 4.5 x 3.7 cm with a cortical thickness of 0.8 cm. Mildly hyp erechoic cortex. No solid mass lesions. No hydronephrosis. Renal a rtery and vein are patent. A right upper pole anechoic renal lesion w ith posterior acoustic enhancement measures 2 x 2.7 x 2.2 cm. N o routine follow-up imaging is recommended. LEFT KIDNEY: The left kidney measures 9. 1 x 5.2 x 4.1 cm with a cortical thickness of 1.1 cm. No solid m ass lesions. No hydronephrosis. Renal artery and vein ar e patent. A hyperechoic focus in the left lower pole with posterior ac oustic shadowing measures 1 cm. BLADDER: Not visualized. IMPRESSION: 1.A left lower pole renal stone measures 1 cm. 2.The right kidney is small, and the cor tices are mildly hyperechoic. This can be seen with chronic medical re nal disease. Signed: Neri Kim MD Report Verified Date/Time: 08/30/2019 1 6:20:28 Reading Location: [address] Radiolog y Reading Room Performing Organization Address City/State/Zipcode Phone Number [facility] Clostridium difficile GDH Toxin (08/30/2019 1:27 PM CDT) C. Difficle Toxin Positive (A) Negative [facility] C. Difficile [facility] Antigen Positive (A) Negative [facility] Comment: MEDICAL CENTER Confirms Clostridium difficile-associated infect ion. First line therapy - oral [place] ncomycin.Continue enteric isolation until 72 hours after treatment is discontinued and symptoms have resolved. Specimen Stool Narrative Performed At Testing performed by [employer] [facility] Assay.For GDH, published sensitivity of the assay is 98.7% compared to cytotoxicity testing.For Toxin AB, published sensitivity is 87.8% and specificity 99.4% compared to cytotoxicity testing. Verification of kit performance was done by the [facility] Microbiology Lab prior to clinical use. Performing Organization Address City/State/Zipcode Phone Number [address] [address] CENTER [place]H, manual (08/30/2019 12:52 PM CDT) ABO Grouping O [facility] Rh Factor POS [facility] Specimen Blood Performing Organization Address City/[facility] Phone Number [address] [address] XR chest 1 view portable / bedside (08/30/2019 11:48 AM CDT) Specimen Narrative Performed At FINAL REPORT GE [facility] INDICATION: arrived from OSH, GI bleed a nd PICC in place COMPARISON: October 25, 2016 TECHNIQUE: Single frontal view of the est. FINDINGS: Lungs and pleura: Clear lungs. No effusi on. Heart and mediastinum: Normal heart size . Unremarkable mediastinal contours. Osseous structures: No acute abnormality . Other: PICC tip overlies right atrium. R etraction of 3-4 cm is suggested.. IMPRESSION: No acute intrathoracic abnormality. Signed: Cristina Méndez MD Report Verified Date/Time:08/30/2019 12:14:27 Reading Location: [facility] y Reading Room Procedure Note Interface, External Ris In - 08/30/2019 12:16 PM CDT FINAL REPORT INDICATION: arrived from OSH, GI bleed a nd PICC in place COMPARISON: October 25, 2016 TECHNIQUE: Single frontal view of the est. FINDINGS: Lungs and pleura: Clear lungs. No effusi on. Heart and mediastinum: Normal heart size . Unremarkable mediastinal contours. Osseous structures: No acute abnormality . Other: PICC tip overlies right atrium. R etraction of 3-4 cm is suggested.. IMPRESSION: No acute intrathoracic abnormality. Signed: Cristina Méndez MD Report Verified Date/Time: 08/30/2019 1 2:14:27 Reading Location: [facility] Radiolog y Reading Room Performing Organization Address [facility] Phone Number GE RIS Type and screen, automated (08/30/2019 11:48 AM CDT) ABO/RH AUTOMATED (BEAKER) O POSITIVE [facility] Ab Scrn NEGATIVE [facility] Specimen Blood Performing Organization Address [facility] Phone Number [address] [address] PT/aPTT (08/30/2019 11:47 AM CDT) Protime 18.2 (H) 11.9 - 14.2 seconds [facility] INR 1.6 <=5.9 [facility] PTT 35.4 22.5 - 36.0 seconds [facility] Specimen Blood Narrative Performed At Effective 08/04/2018: PT Reference Range [facility] Change New: 11.9-14.2Previous: 11.7-14.7 RECOMMENDED COUMADIN/WARFARIN INR THERAPY RANGES STANDARD DOSE: 2.0-3.0Includes: PROPHYLAXIS for venous thrombosis, systemic embolization; TREATMENT for venous thrombosis and/or pulmonary embolus. HIGH RISK: Target INR is 2.5-3.5 for patients wiht mechanical heart valves. Performing Organization Address [facility] Phone Number [address] [address] [place] Prothrombin time/INR (08/30/2019 11:47 AM CDT) Protime 18.2 (H) 11.9 - 14.2 seconds [facility] INR 1.6 <=5.9 [facility] Specimen Blood Narrative Performed At Effective 08/04/2018: PT Reference Range [facility] Change New: 11.9-14.2Previous: 11.7-14.7 RECOMMENDED COUMADIN/WARFARIN INR THERAPY RANGES STANDARD DOSE: 2.0-3.0Includes: PROPHYLAXIS for venous thrombosis, systemic embolization; TREATMENT for venous thrombosis and/or pulmonary embolus. HIGH RISK: Target INR is 2.5-3.5 for patients wiht mechanical heart valves. Performing Organization Address [facility] Phone Number [address] [address] [place] Blood gas, venous (08/30/2019 11:47 AM CDT) pH, Vimal 7.35 7.32 - 7.42 [facility] pCO2, Vimal 39 (L) 41 - 51 mmHg [facility] pO2, Vimal 51 (H) 25 - 40 mmHg [facility] O2 Sat, Vimal 84.4 (H) 40.0 - 70.0 % [facility] HCO3, Vimal 21 21 - 29 mmol/L [facility] Base Excess, Vimal -4.3 (L) -2.0 - 3.0 mmol/L [facility] Patient Temperature 36.8 C [facility] FIO2 21.0 % [facility] Specimen Blood Performing Organization Address City/[facility] Phone Number [address] [address] [place] SARS-CoV2/RT-PCR ([facility] & Ref Labs) (08/29/2019 10:30 AM CDT)Only the most recent of2 resultswithin the time period is included. SARS-COV2/RT-PCR Not Detected Not Detected, Negative [facility] SARS-COV-2 PERFORMING LAB BSC [facility] Specimen Other Narrative Performed At Negative results do not preclude SARS-CoV-2 [facility] infection and should not be used as [...] the Act. Fact Sheet for Healthcare Providers: https://www.ProTip/Documents/Xpert%20Xpre ss%20SARS%20CoV-2/Fact%20Sheets/3023802%20SAR S-COV-2%20HEALTHCARE%20PROVIDERS%20FACT%20SHEE T.pdf Fact Sheet for Healthcare Patients: https://www.ProTip/Documents/Xpert%20Xpre ss%20SARS%20CoV-2/Fact%20Sheets/3023801%20SAR S-COV-2%20PATIENT%20FACT%20SHEET.pdf Performing Laboratory: [facility] [address] [place] [address] Performing Organization Address City/State/Zipcode Phone Number [facility] [address] [place] [address] CENTER after 08/31/2018 Insurance Payer Benefit Plan / Group Subscriber ID Type Phone A ddress [employer] ALL xxxxxxxxx Maps Contracted Advance Directives For more information, please contact:[facility] [place], [place] [phone] Code Status Date Activated Date Inactivated Comments Partial Code 08/30/2019 1:13 PM This code status was determined by: Child Drug Protocol After Arrest Occurs? No Mechanical Ventilation with Intubation? Yes Bag/Mask? Yes Internal/External Pacemaker? Yes Transfer to Critical Care? Yes Chest Compressions? No Defibrillation/Cardioversion? No Partial Code 08/30/2019 11:50 AM 08/30/2019 1:13 PM This code status was determined by: Child Drug Protocol After Arrest Occurs? No Mechanical Ventilation with Intubation? Yes Bag/Mask? Yes Internal/External Pacemaker? Yes Transfer to Critical Care? Yes Chest Compressions? No Defibrillation/Cardioversion? No Full Code 08/30/2019 11:07 AM 08/30/2019 11:50 AM This code status was determined by: Patient Full Code 09/22/2015 10:53 AM 10/03/2015 5:33 PM This code status was determined by: Patient
--- OUTSIDE RECORDS SUMMARY | 2019-09-01 22:37 | XMS REPORT | Continuity of Care Document ---
:1930 Author Organization [facility] t Address [address] [place] [address] Care Team Providers Name Role Phone Pcp Primary Care Physician Unavailable SHAHZAD Attending Clinician Unavailable Shahzad PENG Attending Clinician Jonny Andrade MD Attending Clinician Doctor Unassigned, Name Attending Clinician Unavailable ALEXANDER Attending Clinician Unavailable SHAHZAD Admitting Clinician Unavailable ALEXANDER Admitting Clinician Unavailable Payers Payer Name Policy Type Policy Number Effective Expiration Source Date Date TEXANPLUSTEXANPLUS O x[facility] Advance Directives Directive Decision Effective Date Termination Date Comments Sour ce Partial Code This Yes 2019-08-[address] [facility] - code status was 00:00:00 Medical C enter determined by: Child Drug Protocol After Arrest Occurs? No Mechanical Ventilation with Intubation? Yes Bag/Mask? Yes Internal/External Pacemaker? Yes Transfer to Critical Care? Yes Chest Compressions? No Defibrillation/Card ioversion? 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, type 2, 00:00: Medical controlled controlled 00 Ce nter , without , without complicati complicati ons ons Atrial Atrial Disease Active [facility] fibrillati fibrillati 09-27 Elana kes - on on 00:00: Medical Center 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-27 Elana kes - heart heart 00:00: Medical failure failure 00 Center 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 n n On enteral On enteral Disease Active [facility] nutrition nutrition 09-27 [facility] - 00:00: Medical [place] Physical Physical Disease Active [facility] deconditio deconditio 09-27 Elana kes - yrn yrn 00:00: Medical Center 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 09-22 [facility] - requiring requiring 00:00: Medi angelica intubation intubation 00 Ce nter 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 09-22 Elana kes - 00:00: Medical Center 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[facility] 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 00:00: Me dical (DVT) of (DVT) of 00 Center distal distal vein of vein of right right lower lower extremity extremity Status 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 09-22 Elana kes - s s 00:00: Medical 00 Center Seizure Seizure Disease Active [facility] - 00:[facility]: Medical 00 Center Allergies, Adverse Reactions, Alerts Allergy Allergy Status Severity Reaction(s) Onset Inactive Treating Comm ents Source Name Type Date Date Clinician Garrickfushahzad Leeensi Active unknown [facility] antoin ty to 08-29 [facility] - adverse 00:00: Medical reaction 00 Center s Penicill Drug Active Other (See Unknown [facility] ins Allergy Comments) 09-21 reaction [facility] - 00:00: Medical 00 Center Social History Social Habit Start Date Stop Date Quantity Comments Source Sex Assigned At [facility] Smoking Status Start Date Stop Date Source Never smoker [facility] Medications Ordered Filled Start Stop Current Ordering Indication Dosage Frequency Signature Comments Components Source Medication Medication Date Date Medication? Clinician (SIG) Name Name furosemide Yes 60mg QD Take [address] (LASIX) 40 8-18 by mouth [facility] - MG tablet 16:48: daily . Medic al 52 [place] allopurinol Yes a type of 200mg QD Take [address] [address] (ZYLOPRIM) 8-18 joint mg by [facility] - 100 MG 13:18: disorder mouth Medica l tablet 18 due to daily . 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 Medical tablet 18 [place] levETIRAcet Yes 750mg Q.5D Take [address] am (KEPPRA) 8-18 mg by [facility] - 750 MG 13:18: mouth 2 Medical tablet 18 (two) Center times daily. sertraline Yes 25mg QD Take [address] (ZOLOFT) 25 8-18 by mouth [facility] - MG tablet 13:18: daily. Medica l 18 [place] valsartan Yes 160mg QD Take [address] (DIOVAN) 8-18 mg by [facility] - 160 MG 13:18: mouth Medical tablet 18 daily. [place] benzonatate Yes 100mg Take [address] (TESSALON) 8-18 mg by [facility] - 100 MG 13:18: mouth Medical capsule 18 every 6 Center (six) hours as needed for Cough. doxycycline Yes 100mg Q.5D Take [address] (DORYX) 100 8-18 mg by [facility] - MG EC 13:18: mouth 2 Medical tablet 18 (two) Center times daily. amLODIPine Yes 10mg QD Take [address] (NORVASC) 8-18 by mouth [facility] - 10 MG 13:18: daily. Medical tablet 17 [place] rivaroxaban Yes 20mg QD Take [address] (XARELTO) 7-16 by mouth [facility] - 20 mg Tab 11:25: daily. Medica l tablet 24 Center tolterodine 2016-0 Yes urinary 2mg Q.5D Take 2 mg [facility] (DETROL) 2 7-16 urgency, or by mouth 2 [facility] - MG tablet 11:25: the sudden (two) M edical 23 urge to times Center urinate daily. Vital Signs Vital Name Observation Time Observation Value Comments Source Systolic blood 2019-09-01 20:00:00 116 mm[Hg] [facility] Diastolic blood 2019-09-01 20:00:00 64 mm[Hg] [facility] Heart rate 2019-09-01 20:00:00 83 /min [facility] Respiratory rate 2019-09-01 20:00:00 18 /min [facility] Oxygen saturation in 2019-09-01 20:00:00 100 /min [facility] Arterial blood by Medical Ce nter Pulse oximetry Body temperature 2019-09-01 16:00:00 36.39 Hilda [facility] Body weight Measured 2019-09-01 05:15:00 68.6 kg [facility] BMI 2019-09-01 05:15:00 28.58 kg/m2 [facility] Body height 2019-08-30 11:00:[address] [facility] Procedures Procedure Date / Time Performed Performing Clinician Sour e BASIC METABOLIC PANEL 2019-09-01 15:20:00 Rachelle Esparza [facility] (7) [facility] MAGNESIUM 2019-09-01 15:20:[address] [facility] 2D ECHO W/ DOPPLER 2019-09-01 14:51:00 Susan Sierra [facility] (CW/PW/COLOR) [facility] POCT-GLUCOSE METER 2019-09-01 11:45:00 Chaz Andrade [facility] CBC W/PLT COUNT & AUTO 2019-09-01 11:45:00 Derrek Gonzalez [facility] POCT-GLUCOSE METER 2019-09-01 06:19:00 Chaz Andrade [facility] BASIC METABOLIC PANEL 2019-09-01 03:01:00 Yarely Garcia [place] [id number]) [facility] HEPATIC FUNCTION PANEL 2019-09-01 03:01:00 Yarely Garcia [facility] MAGNESIUM 2019-09-01 03:01:00 Yarely Garcia [facility] PHOSPHORUS 2019-09-01 03:01:00 Yarely Garcia [facility] HEMOGLOBIN AND 2019-09-01 03:01:00 [facility] HEMOGLOBIN AND 2019-08-31 21:46:00 Marley Rizo [facility] - HEMATOCRIT [facility] BASIC METABOLIC PANEL 2019-08-31 21:46:00 Cristina Duran CH, I [address] POCT-GLUCOSE METER 2019-08-31 20:58:00 [facility] 2019-08-31 18:46:00 Raymond [facility] TRANSFUSION SERVICE 2019-08-31 18:03:00 Jimmy Dias [facility] POCT-GLUCOSE METER 2019-08-31 16:51:00 Chaz Andrade [facility] HEMOGLOBIN AND 2019-08-31 16:46:00 Marley Rizo [facility] - HEMATOCRIT [facility] HEMOGLOBIN AND 2019-08-31 10:08:00 Marley Rizo [facility] - HEMATOCRIT [facility] LACTIC ACID, VENOUS 2019-08-31 08:41:00 Derrek Gonzalez [facility] BASIC METABOLIC PANEL 2019-08-31 04:21:00 Yarely Garcia [place] [id number]) [facility] HEPATIC FUNCTION PANEL 2019-08-31 04:21:00 Yarely Garcia [facility] MAGNESIUM 2019-08-31 04:21:00 Yarely Garcia [facility] PHOSPHORUS 2019-08-31 04:21:00 Yarely Garcia [facility] VANCOMYCIN LEVEL, RANDOM 2019-08-31 04:21:00 [facility] INDICATED 2019-08-31 04:21:00 [facility] HEMOGLOBIN AND 2019-08-31 04:21:00 [place] HEMATOCRIT [facility] CBC (HEMOGRAM ONLY) 2019-08-30 21:47:00 [facility] HEMOGLOBIN AND 2019-08-30 18:09:00 Radha [facility] HEMATOCRIT [facility] BASIC METABOLIC PANEL 2019-08-30 18:09:00 [facility] () [facility] CT ABDOMEN/PELVIS 2019-08-30 16:45:00 [facility] WITHOUT IV CONTRAST Medical Cent er URINE CULTURE 2019-08-30 15:36:00 Radha [facility] URINALYSIS W/ REFLEX 2019-08-30 15:36:00 Yarely Garcia [facility] URINE CULTURE [facility] US RENAL COMPLETE 2019-08-30 14:07:00 Radha [facility] C. DIFFICILE GDH TOXIN 2019-08-30 13:27:00 Yarely Garcia [facility] ABORH, MANUAL 2019-08-30 12:52:00 Martha Trujillo [facility] XR CHEST 1 VIEW 2019-08-30 11:48:00 Yarely Garcia [facility] - PORTABLE/BEDSIDE Medical Center TYPE AND SCREEN, 2019-08-30 11:48:00 Yarely Garcia [facility] - AUTOMATED [facility] BLOOD CULTURE 2019-08-30 11:47:00 Yarely Garcia [facility] BLOOD GAS, VENOUS 2019-08-30 11:47:00 Yarely Garcia [facility] CBC (HEMOGRAM ONLY) 2019-08-30 11:47:[address] [facility] BASIC METABOLIC PANEL 2019-08-30 11:47:00 Yarely Garcia [facility] () [facility] LACTIC ACID, VENOUS 2019-08-30 11:47:[address] [facility] PROTHROMBIN TIME/INR 2019-08-30 11:47:00 Radha Yarely [facility] PT/APTT 2019-08-30 11:47:00 Yarely Garcia [facility] BLOOD CULTURE 2019-08-30 11:46:00 GarciaYarely [facility] SARS-COV2/RT-PCR ([facility] & 2019-08-29 10:30:00 [facility] REF LABS) [facility] SARS-COV2/RT-PCR ([facility] & 2019-08-01 21:15:00 [facility] REF LABS) [facility] Encounters Start End Encounter Admission Attending Care Care Encounter Source Date/Time Date/Time Type Type Clinicians Facility Department ID 2018-11-18 2018-11-18 Orders Doctor ENEDELIA [id number] 00:00:00 00:00:00 Only Unassigned, HANH [id number] Di Giorgio [facility] [id number] Results Test Description Test Time Test Comments Results Result Sour e Comments 2D Echo 2019-08-09 [facility]/PW/C 5 ECHO [facility] - [facility]) 18:34:29 [facility] CPACSInterface, External Ris In - 09/01/2019 6:34 PM CDTTransthoracic Echocardiography Report (TTE) Demographics Patient Name MICAELA MARIANO Date of Study 09/01/2019 ROSALIO Gender Female Visit Number [id number] Race Black Room Number 7107 Number Date of 1930 Referring Physician Susan Sierra Age 88 year(s) Vacuum Frame Operator Dana Maria, LOYD Interpreting Shashank Hu MD Physician Fellow NORMA Lira Procedure Type of Study TTE procedure:2DECHO W DOPPLER(CW/PW/COLOR) (Routine) Indications:Sepsis.Cl inical HistoryHGB 10.2HCT 33.8 %A-fib, DM, CHF, DVT, Epilepsy, HTN, Sepsis, C-diffHeight: 61 inches Weight: 68.49 kg (151 lbs) BSA: 1.68 m^2 BMI: 28.53 kg/m^2HR: 80 bpm BP: 118/50 mmHg Summary 1. [...] Previous Study No prior studies available for comparison. Signature - - Findings Technical Quality: Technically adequate exam. Rhythm/BP Regular sinus rhythm during the exam. Left Ventricle The LV endocardium is well visualized. The left ventricle is chamber size (by vol index) is small. Normal LV wall thickness. All of the LV segments are hyperkinetic . LVEF by Vaughn's method of disk assessment is increased (>60%) . Grade 1 diastolic dysfunction (impaired relaxation and low-normal LA pressure). Left Atrium LA size is normal . Right Ventricle The right ventricular chamber size and systolic function are within normal limits. Right Atrium RA size is probably normal based on available views. Atrial Septum Normal interatrial septum by available views. Aortic Valve Mild AoV cusp thickening. Trace central aortic insufficiency Mitral Valve Mild MV leaflet thickening. Trace mitral regurgitation. Tricuspid Valve TV structure is normal. Mild tricuspid regurgitation. Estimated peak systolic PA pressure is 40-45 mmHg (mild pulmonary hypertension) Pulmonic Valve Normal PV structure. Mild pulmonary regurgitation. Aorta Aortic root size (SInus of Valsalva diameter) is normal . Pericardium No significant pericardial effusion is visualized. IVC/SVC/PA/PV/Pleural The estimated RA [...] Mitral Valve MV Peak E-Wave: 0.63 m/s MV Peak A-Wave: 1.03 m/s E/A Ratio: 0.62 Peak Gradient: 1.6 mmHg Deceleration Time: 251.9 msec MV Fady. Peak: Tissue Doppler E' Septal Velocity: 0.04 m/s E/E': 11.09 E' Lateral Velocity: 0.06 m/s Aortic Valve Peak Velocity: 1.16 m/s Mean Velocity: 0.82 m/s Peak Gradient: 5.37 mmHg Mean Gradient: 3 mmHg AV Area (continuity): 3.61 cm^2 AV VTI: 21.3 cm AV DVI: 1.14 LVOT Peak Velocity: 1.18 m/s Peak Gradient: 5.61 mmHg Mean Velocity: 0.79 m/s Mean Gradient: 2.78 mmHg LVOT Diameter: 2.01 cm LVOT VTI: 24.23 cm LVOT Area: 3.17 cm^2 LVOT SV:76.84 ml LVOT CO: 6.15 l/min LVOT CI: 3.66 l/min/m^2 Tricuspid Valve TR Velocity: 3.17 m/s TR Gradient: 40.07 mmHg Magnesium 2019-09-01 16:40:00 Test Item Value Reference Range Interpretation Comme nts Magnesium (test code = 08829-0) 2.3 mg/dL 1.6-2.6 LONG (test code = LONG) Loan Documentation Specialist ID - DB Lab Interpretation (test code = 26160-9) Normal [facility] 16:40:00 Test Item Value Reference Range Interpretation Comments MAGNESIUM (BEAKER) (test code = 2.3 mg/dL 1.6-2.6 627) Loan Documentation Specialist ID - DBBasi Metabolic [id number] 15:55:00 Test Item Value Reference Range Interpretation Comments Sodium (test code = 152 meq/L 136-145 H 2951-2) Potassium (test code = 3.4 meq/L 3.5-5.1 L 2823-3) Chloride (test code = 125 meq/L 98-107 H 2075-0) CO2 (test code = 22 meq/L 22-29 2028-9) BUN (test code = 19 mg/dL 7-21 3094-0) Creatinine (test code 1.24 mg/dL 0.57-1.25 = 2160-0) Glucose (test code = 190 mg/dL 70-105 H 2345-7) Calcium (test code = 8.4 mg/dL 8.4-10.2 81093-5) EGFR (test code = 49 mL/min/1.73 [place] [address]-5) NOT ACCURATE CREATININE CLEARANCE IN PREDICTING GLOMERULAR FILTRATION RATE . ESTIMATED GFR I S NOT APPLICABLE FOR DIALYSIS PATIENTS. LONG (test code = LONG) Loan Documentation Specialist ID - DB Lab Interpretation Abnormal (test code = 35704-1) [facility] METABOLIC [id number] 15:55:00 Test Item Value Reference Range Interpretation Comments SODIUM (BEAKER) 152 meq/L 136-145 H (test code = 381) POTASSIUM (BEAKER) 3.4 meq/L 3.5-5.1 L (test code = 379) CHLORIDE (BEAKER) 125 meq/L 98-107 H (test code = 382) CO2 (BEAKER) (test 22 meq/L 22-29 code = 355) BLOOD UREA NITROGEN 19 mg/dL 7-21 (BEAKER) (test code = 354) CREATININE (BEAKER) 1.24 mg/dL 0.57-1.25 (test code = 358) GLUCOSE RANDOM 190 mg/dL 70-105 H (BEAKER) (test code = 652) CALCIUM (BEAKER) 8.4 mg/dL 8.4-10.2 (test code = 697) EGFR (MAT) (test 49 mL/min/1.73 ESTIMA WALE GFR IS code = 1092) sq m NOT ACCURATE CREATININE CLEARANCE IN PREDICTING GLOMERULAR FILTRATION RATE . ESTIMATED GFR I S NOT APPLICABLE FOR DIALYSIS PATIEN TS. Loan Documentation Specialist ID - DBPOC-Glucose [id number] 11:57:00 Test Item Value Reference Range Interpretation Comments POC-Glucose Meter (test 166 mg/dL 70-110 H : TE STED AT [facility] code = 1538) [address] [facility], 770 30: Loan Documentation Specialist/Techni colby ID = [id number] for GISELLE SOUTH Lab Interpretation (test Abnormal code = 85351-5) [facility] [id number] 11:57:00 Test Item Value Reference Range Interpretation Comments POC-GLUCOSE METER 166 mg/dL 70-110 H : TESTED A T [facility] 6720 (MAT) (test code = BERTKY R [facility], 1538) [address]: Loan Documentation Specialist/Techni colby ID = [id number] for GISELLE JOHNSON CBC with platelet count + automated [id number] 11:54:00 Test Item Value Reference Range Interpretation Comments WBC (test code = 6690-2) 21.1 3.5- 10.5 K/L H RBC (test code = 789-8) 3.46 3.93- 5.22 M/L L MCHC (test code = 786-4) 30.2 32.2- 35.5 GM/DL L Hematocrit (test code = 4544-3) 33.8 % 34.1-44.9 L MCV (test code = 787-2) 97.7 fL 79.4-94.8 H MCH (test code = 785-6) 29.5 pg 25.6-32.2 RDW (test code = 788-0) 18.6 % 11.7-14.4 H Platelets (test code = 777-3) 204 150- 450 K/CU MM MPV (test code = 29933-2) 8.8 fL 9.4-12.3 L nRBC (test code = 413) 0 0- 0 /100 WBC % Neutros (test code = 429) 86 % % Lymphs (test code = 430) 7 % % Monos (test code = 431) 5 % % Eos (test code = 432) 0 % % Baso (test code = 437) 0 % # Neutros (test code = 670) 18.19 1.56- 6.13 K/L H # Lymphs (test code = 414) 1.47 1.18- 3.74 K/L # Monos (test code = 415) 1.06 0.24- 0.36 K/L H # Eos (test code = 416) 0.09 0.04- 0.36 K/L # Baso (test code = 417) 0.09 0.01- 0.08 K/L H Immature Granulocytes-Relative 1 % 0-1 (test code = 2801) Lab Interpretation (test code = Abnormal 03209-2) [facility] W/PLT COUNT & AUTO [id number] 11:54:00 Test Item Value Reference Range Interpretation Comments WHITE BLOOD CELL COUNT (BEAKER) 21.1 K/ L 3.5-10.5 H (test code = 775) RED BLOOD CELL COUNT (BEAKER) 3.46 M/ L 3.93-5.22 L (test code = 761) HEMOGLOBIN (BEAKER) (test code = 10.2 GM/DL 11.2-15.7 L 410) HEMATOCRIT (BEAKER) (test code = 33.8 % 34.1-44.9 L 411) MEAN CORPUSCULAR VOLUME (BEAKER) 97.7 fL 79.4-94.8 H (test code = 753) MEAN CORPUSCULAR HEMOGLOBIN 29.5 pg 25.6-32.2 (BEAKER) (test code = 751) MEAN CORPUSCULAR HEMOGLOBIN CONC 30.2 GM/DL 32.2-35.5 L (BEAKER) (test code = 752) RED CELL DISTRIBUTION WIDTH 18.6 % 11.7-14.4 H (BEAKER) (test code = 412) PLATELET COUNT (BEAKER) (test 204 K/CU MM 150-450 code = 756) MEAN PLATELET VOLUME (BEAKER) 8.8 fL 9.4-12.3 L (test code = 754) NUCLEATED RED BLOOD CELLS 0 /100 WBC 0-0 (BEAKER) (test code = 413) NEUTROPHILS RELATIVE PERCENT 86 % (BEAKER) (test code = 429) LYMPHOCYTES RELATIVE PERCENT 7 % (BEAKER) (test code = 430) MONOCYTES RELATIVE PERCENT 5 % (BEAKER) (test code = 431) EOSINOPHILS RELATIVE PERCENT 0 % (BEAKER) (test code = 432) BASOPHILS RELATIVE PERCENT 0 % (BEAKER) (test code = 437) NEUTROPHILS ABSOLUTE COUNT 18.19 K/ L 1.56-6.13 H (BEAKER) (test code = 670) LYMPHOCYTES ABSOLUTE COUNT 1.47 K/ L 1.18-3.74 (BEAKER) (test code = 414) MONOCYTES ABSOLUTE COUNT (BEAKER) 1.06 K/ L 0.24-0.36 H (test code = 415) EOSINOPHILS ABSOLUTE COUNT 0.09 K/ L 0.04-0.36 (BEAKER) (test code = 416) BASOPHILS ABSOLUTE COUNT (BEAKER) 0.09 K/ L 0.01-0.08 H (test code = 417) IMMATURE GRANULOCYTES-RELATIVE 1 % 0-1 PERCENT (BEAKER) (test code = 2801) POCT-GLUCOSE [id number] 06:30:00 Test Item Value Reference Range Interpretation Comments POC-GLUCOSE METER 98 mg/dL 70-110 : TESTED A T [facility] 6720 (BEAKER) (test code = [place], 1538) [address]: Loan Documentation Specialist/Techni colby ID = [id number] for ANDER JOHNSON Hepatic function [id number] 05:45:00 Test Item Value Reference Range Interpretation Comments Protein, Total (test code 5.4 6.0- 8.3 gm/dL L = 2885-2) Albumin (test code = 2.3 g/dL 3.5-5 L 52727-5) Total Bilirubin (test code 0.3 mg/dL 0.2-1.2 = 1975-2) Bilirubin, Direct (test 0.2 mg/dL 0.1-0.5 code = 1967-7) Alkaline Phosphatase (test 68 U/L 40-150 code = 6768-6) AST (test code = 1920-8) 11 U/L 5-34 ALT (test code = 1742-6) <6 6-55 L LONG (test code = LONG) Loan Documentation Specialist ID - PIAYA L Lab Interpretation (test Abnormal code = 91573-6) [facility] [id number] 05:45:00 Test Item Value Reference Range Interpretation Comments TOTAL PROTEIN (BEAKER) (test code = 5.4 gm/dL 6.0-8.3 L 770) ALBUMIN (BEAKER) (test code = 1145) 2.3 g/dL 3.5-5.0 L BILIRUBIN TOTAL (BEAKER) (test code 0.3 mg/dL 0.2-1.2 = 377) BILIRUBIN DIRECT (BEAKER) (test 0.2 mg/dL 0.1-0.5 code = 706) ALKALINE PHOSPHATASE (BEAKER) (test 68 U/L 40-150 code = 346) AST (SGOT) (BEAKER) (test code = 11 U/L 5-34 353) ALT (SGPT) (BEAKER) (test code = < U/L 6-55 L 347) Loan Documentation Specialist ID - PIAYA LBASIC METABOLIC [id number] 04:02:00 Test Item Value Reference Range Interpretation Comments SODIUM (BEAKER) 148 meq/L 136-145 H (test code = 381) POTASSIUM (BEAKER) 3.5 meq/L 3.5-5.1 (test code = 379) CHLORIDE (BEAKER) 124 meq/L 98-107 H (test code = 382) CO2 (BEAKER) (test 17 meq/L 22-29 L code = 355) BLOOD UREA NITROGEN 18 mg/dL 7-21 (BEAKER) (test code = 354) CREATININE (BEAKER) 1.27 mg/dL 0.57-1.25 H (test code = 358) GLUCOSE RANDOM 101 mg/dL 70-105 (BEAKER) (test code = 652) CALCIUM (BEAKER) 8.1 mg/dL 8.4-10.2 L (test code = 697) EGFR (BEAKER) (test 48 mL/min/1.73 ESTIMA WALE GFR IS code = 1092) sq m NOT ACCURATE CREATININE CLEARANCE IN PREDICTING GLOMERULAR FILTRATION RATE . ESTIMATED GFR I S NOT APPLICABLE FOR DIALYSIS PATIEN TS. Loan Documentation Specialist ID - PIAYA [id number] 03:55:00 Test Item Value Reference Range Interpretation Comments Phosphorus (test code = 1.9 mg/dL 2.3-4.7 L 2777-1) LONG (test code = LONG) Loan Documentation Specialist ID - PIAYA L Lab Interpretation (test Abnormal code = 85883-2) [facility] 03:55:00 Test Item Value Reference Range Interpretation Comments PHOSPHORUS (BEAKER) (test code = 1.9 mg/dL 2.3-4.7 L 604) Loan Documentation Specialist ID - HANNAH [id number] 03:55:00 Test Item Value Reference Range Interpretation Comments MAGNESIUM (BEAKER) (test code = 1.8 mg/dL 1.6-2.6 627) Loan Documentation Specialist ID - PIAYA LHemoglobin and [id number] 03:40:00 Test Item Value Reference Range Interpretation Comments Hemoglobin (test code = 9.7 11.2- 15.7 GM/DL L 786-4) Hematocrit (test code = 32.9 % 34.1-44.9 L 4544-3) LONG (test code = LONG) Loan Documentation Specialist ID - [id number] Lab Interpretation (test Abnormal code = 00648-7) [facility]MOGLOBIN AND [id number] 03:40:00 Test Item Value Reference Range Interpretation Comments HEMOGLOBIN (BEAKER) (test code = 9.7 GM/DL 11.2-15.7 L 410) HEMATOCRIT (BEAKER) (test code = 32.9 % 34.1-44.9 L 411) Loan Documentation Specialist ID - [id number] METABOLIC [id number] 22:41:00 Test Item Value Reference Range Interpretation Comments SODIUM (BEAKER) 149 meq/L 136-145 H (test code = 381) POTASSIUM (BEAKER) 3.1 meq/L 3.5-5.1 L (test code = 379) CHLORIDE (BEAKER) 122 meq/L 98-107 H (test code = 382) CO2 (BEAKER) (test 18 meq/L 22-29 L code = 355) BLOOD UREA NITROGEN 24 mg/dL 7-21 H (BEAKER) (test code = 354) CREATININE (BEAKER) 1.33 mg/dL 0.57-1.25 H (test code = 358) GLUCOSE RANDOM 95 mg/dL 70-105 (BEAKER) (test code = 652) CALCIUM (BEAKER) 8.1 mg/dL 8.4-10.2 L (test code = 697) EGFR (BEAKER) (test 46 mL/min/1.73 ESTIMA WALE GFR IS code = 1092) sq m NOT ACCURATE CREATININE CLEARANCE IN PREDICTING GLOMERULAR FILTRATION RATE . ESTIMATED GFR I S NOT APPLICABLE FOR DIALYSIS PATIEN TS. Loan Documentation Specialist ID - BSHEMOGLOBIN AND [id number] 22:20:00 Test Item Value Reference Range Interpretation Comments HEMOGLOBIN (BEAKER) (test code = 10.0 GM/DL 11.2-15.7 L 410) HEMATOCRIT (BEAKER) (test code = 33.5 % 34.1-44.9 L 411) Loan Documentation Specialist ID - 6000POCT-GLUCOSE [id number] 21:09:00 Test Item Value Reference Range Interpretation Comments POC-GLUCOSE METER 97 mg/dL 70-110 : TESTED A T [facility] 6720 (BEAKER) (test code = [facility], 153) 05118: Loan Documentation Specialist/Techni colby ID = [id number] for RIDL ING, PATRICE POCT-GLUCOSE [id number] 18:59:00 Test Item Value Reference Range Interpretation Comments POC-GLUCOSE METER 91 mg/dL 70-110 : TESTED A T [facility] 6720 (BEAKER) (test code = [facility], 153) 05063: Loan Documentation Specialist/Techni colby ID = [id number] for JUANJOSE CARDENAS, WANDA POCT-GLUCOSE [id number] 17:02:00 Test Item Value Reference Range Interpretation Comments POC-GLUCOSE METER 65 mg/dL 70-110 L : TESTED A T [facility] 6720 (BEAKER) (test code = [facility], 153) 38632: Loan Documentation Specialist/Techni colby ID = [id number] for ELO HUTTON HEMOGLOBIN AND [id number] 16:54:00 Test Item Value Reference Range Interpretation Comments HEMOGLOBIN (BEAKER) (test code = 10.5 GM/DL 11.2-15.7 L 410) HEMATOCRIT (BEAKER) (test code = 34.7 % 34.1-44.9 411) Loan Documentation Specialist ID - [id number] AND [id number] 10:22:00 Test Item Value Reference Range Interpretation Comments HEMOGLOBIN (BEAKER) (test code = 10.8 GM/DL 11.2-15.7 L 410) HEMATOCRIT (BEAKER) (test code = 36.0 % 34.1-44.9 411) Loan Documentation Specialist ID - 6000Lactic acid, [id number] 09:05:00 Test Item Value Reference Range Interpretation Comments Lactate, Venous (test 0.74 mmol/L 0.5-2.2 Specim en code = 2872) slightly hemolyzed LONG (test code = LONG) Loan Documentation Specialist ID - LA Lab Interpretation Normal (test code = 43273-6) [facility], [id number] 09:05:00 Test Item Value Reference Range Interpretation Comments LACTATE BLOOD VENOUS 0.74 mmol/L 0.50-2.20 Specime n slightly (2) (BEAKER) (test hemolyzed code = 2872) Loan Documentation Specialist ID - LATSH/Free T4 If [id number] 07:36:00 Test Item Value Reference Range Interpretation Comments TSH (test code = 14960-0) 1.025 0.350- 4.940 uIU/mL LONG (test code = LONG) Loan Documentation Specialist ID - LA Lab Interpretation (test Normal code = 03966-5) [facility] T4 IF [id number] 07:36:00 Test Item Value Reference Range Interpretation Comments THYROID STIMULATING HORMONE 1.025 uIU/mL 0.350-4.940 (BEAKER) (test code = 772) Loan Documentation Specialist ID - LABASIC METABOLIC [id number] 05:23:00 Test Item Value Reference Range Interpretation Comments SODIUM (BEAKER) 149 meq/L 136-145 H (test code = 381) POTASSIUM (BEAKER) 3.0 meq/L 3.5-5.1 L (test code = 379) CHLORIDE (BEAKER) 121 meq/L 98-107 H (test code = 382) CO2 (BEAKER) (test 20 meq/L 22-29 L code = 355) BLOOD UREA NITROGEN 26 mg/dL 7-21 H (BEAKER) (test code = 354) CREATININE (BEAKER) 1.35 mg/dL 0.57-1.25 H (test code = 358) GLUCOSE RANDOM 80 mg/dL 70-105 (BEAKER) (test code = 652) CALCIUM (BEAKER) 8.2 mg/dL 8.4-10.2 L (test code = 697) EGFR (BEAKER) (test 45 mL/min/1.73 ESTIMA WALE GFR IS code = 1092) sq m NOT ACCURATE CREATININE CLEARANCE IN PREDICTING GLOMERULAR FILTRATION RATE . ESTIMATED GFR I S NOT APPLICABLE FOR DIALYSIS PATIEN TS. Loan Documentation Specialist ID - GERALDO BHEPATIC FUNCTION [id number] 05:23:00 Test Item Value Reference Range Interpretation Comments TOTAL PROTEIN (BEAKER) (test code = 5.9 gm/dL 6.0-8.3 L 770) ALBUMIN (BEAKER) (test code = 1145) 2.5 g/dL 3.5-5.0 L BILIRUBIN TOTAL (BEAKER) (test code 0.3 mg/dL 0.2-1.2 = 377) BILIRUBIN DIRECT (BEAKER) (test 0.2 mg/dL 0.1-0.5 code = 706) ALKALINE PHOSPHATASE (BEAKER) (test 83 U/L 40-150 code = 346) AST (SGOT) (BEAKER) (test code = 12 U/L 5-34 353) ALT (SGPT) (BEAKER) (test code = < U/L 6-55 L 347) Loan Documentation Specialist ID - GERALDO [id number] 05:04:00 Test Item Value Reference Range Interpretation Comments PHOSPHORUS (BEAKER) (test code = 2.4 mg/dL 2.3-4.7 604) Loan Documentation Specialist ID - GERALDO [id number] 05:04:00 Test Item Value Reference Range Interpretation Comments MAGNESIUM (BEAKER) (test code = 1.9 mg/dL 1.6-2.6 627) Loan Documentation Specialist ID - GERALDO BVancomycin level, [id number] 04:59:00 Test Item Value Reference Range Interpretation Comments Vancomycin Rm (test 6.5 ug/mL code = 41612-0) LONG (test code = Reference Range: No LONG) NormalsOperator ID - GERALDO B [facility] HospitalVANCOMYCIN LEVEL, [id number] 04:59:00 Test Item Value Reference Range Interpretation Comments VANCOMYCIN RANDOM (BEAKER) (test 6.5 ug/mL code = 523) Reference Range: No NormalsOperator ID - GERALDO BHEMOGLOBIN AND HEMATOCRIT 2019-08-31 04:44:00 Test Item Value Reference Range Interpretation Comments HEMOGLOBIN (BEAKER) (test code = 10.7 GM/DL 11.2-15.7 L 410) HEMATOCRIT (BEAKER) (test code = 35.7 % 34.1-44.9 411) Loan Documentation Specialist ID - [id number] (Hemogram only)2019-08-30 21:59:00 Test Item Value Reference Range Interpretation Comments WBC (test code = 6690-2) 29.9 3.5- 10.5 K/L H RBC (test code = 789-8) 3.52 3.93- 5.22 M/L L MCHC (test code = 786-4) 30.3 32.2- 35.5 GM/DL L Hematocrit (test code = 4544-3) 34.6 % 34.1-44.9 MCV (test code = 787-2) 98.3 fL 79.4-94.8 H MCH (test code = 785-6) 29.8 pg 25.6-32.2 RDW (test code = 788-0) 19.2 % 11.7-14.4 H Platelets (test code = 777-3) 262 150- 450 K/CU MM MPV (test code = 12142-9) 9.5 fL 9.4-12.3 nRBC (test code = 413) 0 0- 0 /100 WBC Lab Interpretation (test code = Abnormal 90516-2) [facility] (HEMOGRAM ONLY)2019-08-30 21:59:00 Test Item Value Reference Range Interpretation Comments WHITE BLOOD CELL COUNT (BEAKER) 29.9 K/ L 3.5-10.5 H (test code = 775) RED BLOOD CELL COUNT (BEAKER) 3.52 M/ L 3.93-5.22 L (test code = 761) HEMOGLOBIN (BEAKER) (test code = 10.5 GM/DL 11.2-15.7 L 410) HEMATOCRIT (BEAKER) (test code = 34.6 % 34.1-44.9 411) MEAN CORPUSCULAR VOLUME (BEAKER) 98.3 fL 79.4-94.8 H (test code = 753) MEAN CORPUSCULAR HEMOGLOBIN 29.8 pg 25.6-32.2 (BEAKER) (test code = 751) MEAN CORPUSCULAR HEMOGLOBIN CONC 30.3 GM/DL 32.2-35.5 L (BEAKER) (test code = 752) RED CELL DISTRIBUTION WIDTH 19.2 % 11.7-14.4 H (BEAKER) (test code = 412) PLATELET COUNT (BEAKER) (test 262 K/CU MM 150-450 code = 756) MEAN PLATELET VOLUME (BEAKER) 9.5 fL 9.4-12.3 (test code = 754) NUCLEATED RED BLOOD CELLS 0 /100 WBC 0-0 (BEAKER) (test code = 413) BASIC METABOLIC [id number] 18:48:00 Test Item Value Reference Range Interpretation Comments SODIUM (BEAKER) 149 meq/L 136-145 H (test code = 381) POTASSIUM (BEAKER) 4.2 meq/L 3.5-5.1 (test code = 379) CHLORIDE (BEAKER) 120 meq/L 98-107 H (test code = 382) CO2 (BEAKER) (test 19 meq/L 22-29 L code = 355) BLOOD UREA NITROGEN 30 mg/dL 7-21 H (BEAKER) (test code = 354) CREATININE (BEAKER) 1.53 mg/dL 0.57-1.25 H (test code = 358) GLUCOSE RANDOM 82 mg/dL 70-105 (BEAKER) (test code = 652) CALCIUM (BEAKER) 8.0 mg/dL 8.4-10.2 L (test code = 697) EGFR (BEAKER) (test 39 mL/min/1.73 ESTIMA WALE GFR IS code = 1092) sq m NOT ACCURATE CREATININE CLEARANCE IN PREDICTING GLOMERULAR FILTRATION RATE . ESTIMATED GFR I S NOT APPLICABLE FOR DIALYSIS PATIEN TS. Loan Documentation Specialist ID - BSHEMOGLOBIN AND [id number] 18:29:00 Test Item Value Reference Range Interpretation Comments HEMOGLOBIN (BEAKER) (test code = 10.6 GM/DL 11.2-15.7 L 410) HEMATOCRIT (BEAKER) (test code = 35.1 % 34.1-44.9 411) Loan Documentation Specialist ID - [id number], [id number] 17:31:00Anesthesia:->NoneFINAL REPORT ABDOMINAL AND PELVIS CT DATED 08/30/2019 CLINICAL INFORMATION: Sepsissepsis, hematuria TECHNIQUE: Axial images of the abdomen and pelvis were obtained from diaphragm to the pubic symphysis without GI or intravenous contrast. This exam was performed according to our departmental dose-optimization program, which includes automated exposure control, adjustment of the mA and/or kV according to patient size and/or use of interactive reconstruction technique. COMMENT: Liver and spleen are normal in size without focal abnormality. Gallbladder is contracted. Multiplesmall gallstones are present. No biliary dilatation is noted. Pancreas and adrenals are unremarkable . Both kidneys are normal in size. No hydronephrosis, hydroureter, urolithiasis is seen. A 2.1 x 2.6 cm cyst is seen in the upper pole right kidney. A 1.5 x 2 cm cyst is seen in the inferior pole left kidney. A peripheral calcified hypodense lesion is seen in the inferior pole left kidney measuring 1 .1 cm in size. A 5 x 12 mm stone is seen in the inferior pole left kidney. A 2 mm stone is seen in the inferior pole right kidney. A double-J ureteral stent is seen on the left. No hydronephrosis or hydroureter is seen. Diverticular disease is seen in the large bowel without diverticulitis. Small bowel and appendix are normal in caliber. Wall thickening is seen in the distal sigmoid colon and rectum suggestive of proctocolitis. There is soft tissue stranding in the presacral pelvis and perirectal fascia. IMPRESSION: 1. Findings suggestive of proctocolitis.2. Diverticulosis.3. Bilateral renal cystsand peripheral calcified cystic lesion in the inferior pole left kidney.4. Bilateral renal stones with posterior left ureteral stent without hydronephrosis.5. Cholelithiasis without biliary dilatation.Signed: Theresa Verde MDReport Verified Date/Time: 08/30/2019 17:31:27 Reading Location: [facility] [id number] Body Reading Room CT abdomen/pelvis without iv [id number] 17:31:00Interface, External Ris In - 08/30/2019 5:33 PM CDTFINAL REPORT ABDOMINAL AND PELVIS CT DATED 08/30/2019 CLINICAL INFORMATION: Sepsissepsis, hematuria TECHNIQUE: Axial images of the abdomen and pelvis were obtained from diaphragm to the pubic symphysis without GI or intravenous contrast. This exam was performed according to our departmental dose-optimization program, which i ncludes automated exposure control, adjustment of the mA and/or kV according to patient size and/or use of interactive reconstruction technique. COMMENT: Liver and spleen are normal in size without focal abnormality. Gallbladder is contracted. Multiple small gallstones are present. No biliary dilatation is noted. Pancreas and adrenals are unremarkable. Both kidneys are normal in size. No hydronephrosis, hydroureter, urolithiasis is seen. A 2.1 x 2.6 cm cyst is seen in the upper pole right kidney. A 1.5 x 2 cm cyst is seen in the inferior pole left kidney. A peripheral calcified hypodense lesionis seen in the inferior pole left kidney measuring 1.1 cm in size. A 5 x 12 mm stone is seen in the inferior pole left kidney. A 2 mm stone is seen in the inferior pole right kidney. A double-J ureteral stent is seen on the left. No hydronephrosis or hydroureter is seen. Diverticular disease is seen in the large bowel without diverticulitis. Small bowel and appendix are normal in caliber. Wall thickening is seen in the distal sigmoid colon and rectum suggestive of proctocolitis. There is soft tissuestranding in the presacral pelvis and perirectal fascia. IMPRESSION: 1. Findings suggestive of proctocolitis.2. Diverticulosis.3. Bilateral renal cysts and peripheral calcified cystic lesion in the inferior pole left kidney.4. Bilateral renal stones with posterior left ureteral stent without hydronephrosis.5. Cholelithiasis without biliary dilatation. Signed: Theresa Verde [facility] Verified Date/Time: 08/30/2019 17:31:27 Reading Location: [facility] B1 C013Y CT Body Reading [facility] 2019-08-30 16:20:00Reason for exam:->hematuriaShould this be performed at the bedside?->YesFINAL REPORT TECHNIQUE: Grayscale ultrasound of the kidneys and bladder. INDICATION: hematuria. COMPARISON: None. FINDINGS: RIGHT KIDNEY: The right kidney measures 8.7 x 4.5 x 3.7 cm with a cortical thickness of 0.8 cm. Mildly hyperechoic cortex. No solid mass lesions. No hydronephrosis. Renal artery and vein are patent. A right upper pole anechoic renal lesion with posterior acoustic enhancement measures 2 x 2.7 x 2.2 cm. No routine follow-up imaging is recommended. LEFT KIDNEY: The left kidney measures 9.1 x 5.2 x 4.1 cm with a cortical thickness of 1.1 cm. No solid mass lesions. No hydronephrosis. Renal artery and vein are patent. A hyperechoic focus in the left lower pole with posterior acoustic shadowing measures 1 cm. BLADDER: Not visualized. IMPRESSION: 1.A left lower pole renal stone measures 1 cm. 2.The right kidney is small, and the cortices are mildly hyperechoic. This can be seen with chronic medical renal disease. Signed: Neri Kim [facility] Verified Date/Time: 08/30/2019 16:20:28 Reading Location: [address] Radiology Reading Room US renal [id number] 16:20:00Interface, External Ris In - 08/30/2019 4:22 PM CDTFINAL REPORT TECHNIQUE: Grayscale ultrasound of the kidneys and bladder. INDICATION: hematuria. COMPARISON: None. FINDINGS: RIGHT KIDNEY: The right kidney measures 8.7 x 4.5 x 3.7 cm with a cortical thickness of 0.8 cm. Mildlyhyperechoic cortex. No solid mass lesions. No hydronephrosis. Renal artery and vein are patent. A right upper pole anechoic renal lesion with posterior acoustic enhancement measures 2 x 2.7 x 2.2 cm. No routine follow-up imaging is recommended. LEFT KIDNEY: The left kidney measures 9.1 x 5.2 x 4.1 cm with a cortical thickness of 1.1 cm. No solid mass lesions. No hydronephrosis. Renal artery and vein are patent. A hyperechoic focus in the left lower pole with posterior acoustic shadowing measures 1 cm. BLADDER: Not visualized. IMPRESSION: 1.A left lower pole renal stone measures 1 cm. 2.The right kidney is small, and the cortices are mildly hyperechoic. This can be seen with chronic medical renal disease. Signed: Neri Kim [facility] Verified Date/Time: 08/30/2019 16:20:28 Reading Location: [address] Radiology Reading Room [facility]inal[facility] w/Microscopic + Reflex to [id number] 16:09:00 Test Item Value Reference Range Interpretation Comments Color, UA (test code = [place] 5778-6) Clarity, UA (test code = [place] 5767-9) Specific [place], UA (test 1.016 1.001-1.035 code = 5811-5) pH, UA (test code = 6.5 5.0-8.0 5803-2) Protein, UA (test code = 200 mg/dL Negative A 52773-2) Glucose, UA (test code = Negative Negative 365) Ketones, UA (test code = Trace Negative A 2514-8) Bilirubin, UA (test code = Negative Negative 80486-9) Blood, UA (test code = Large Negative A 46927-3) Nitrite, UA (test code = Negative Negative 5802-4) Leukocytes, UA (test code Large Negative A = 5799-2) Urobilinogen, UA (test 0.2 mg/dL 0.2-1 code = 33558-0) RBC, UA (test code = 701 /HPF 11930-6) WBC, UA (test code = 44 /HPF 5821-4) Mucus (test code = 8247-9) Rare Squam Epithel, UA (test 2 /HPF code = 88547-3) Specimen Source (test code = 2795) LONG (test code = LONG) Loan Documentation Specialist ID - [auto]Loan Documentation Specialist ID - tech Lab Interpretation (test Abnormal code = 96471-3) [facility]FLEX URINE [id number] 16:09:00 Test Item Value Reference Range Interpretation Comments COLOR (BEAKER) (test code = 470) [place] CLARITY (BEAKER) (test code = 469) Hazy SPECIFIC GRAVITY UA (BEAKER) (test 1.016 1.001-1.035 code = 468) PH UA (BEAKER) (test code = 467) 6.5 5.0-8.0 PROTEIN UA (BEAKER) (test code = 200 mg/dL Negative A 464) GLUCOSE UA (BEAKER) (test code = Negative Negative 365) KETONES UA (BEAKER) (test code = Trace Negative A 371) BILIRUBIN UA (BEAKER) (test code = Negative Negative 462) BLOOD UA (BEAKER) (test code = 461) Large Negative A NITRITE UA (BEAKER) (test code = Negative Negative 465) LEUKOCYTE ESTERASE UA (BEAKER) Large Negative A (test code = 466) UROBILINOGEN UA (BEAKER) (test code 0.2 mg/dL 0.2-1.0 = 463) RBC UA (BEAKER) (test code = 519) 701 /HPF WBC UA (BEAKER) (test code = 520) 44 /HPF MUCUS (BEAKER) (test code = 1574) Rare SQUAMOUS EPITHELIAL (BEAKER) (test 2 /HPF code = 516) SOURCE(BEAKER) (test code = 2795) Loan Documentation Specialist ID - [auto]Loan Documentation Specialist ID - techClostridium difficile GDH [id number] 15:45:00 Test Item Value Reference Range Interpretation Comments C. Difficle Toxin Positive Negative A (test code = 2953091528) C. Difficile GDH Positive Negative A Confirms Antigen (test code = Clostri dium 9494657110) difficile-assoc ia wale infection.First line therapy - oral Vancomycin . Continue enteri c isolation until 72 hours after treatment is discontinued an d symptoms have resolved. LONG (test code = Testing performed LONG) by [employer] Rapid Cassette Assay. For GDH, published sensitivity of the assay is 98.7% compared to cytotoxicity testing. For Toxin AB, published sensitivity is 87.8% and specificity 99.4% compared to cytotoxicity testing.Verificati on of kit performance was done by the [facility] Microbiology Lab prior to clinical use. Lab Interpretation Abnormal (test code = 47838-5) [facility]. DIFFICILE GDH [id number] 15:45:00 Test Item Value Reference Range Interpretation Comments CDT TOXIN (test code Positive Negative A = 4699998523) CDT GDH ANTIGEN Positive Negative A Confirms Ledy stridium (test code = difficile-assoc iated 6931746734) infection.First line therapy - oral Vancomycin. Co ntinue enteric isolati on until 72 hours after treatment is discontinued and symptoms have r esolved. Testing performed by [employer] Rapid Cassette Assay. For GDH, published sensitivity of the assay is 98.7% compared to cytotoxicity testing. For Toxin AB, published sensitivity is 87.8% and specificity 99.4% compared to cytotoxicity testing.Verification of kit performance was done by the [facility] Microbiology Lab prior to clinical use.ABORH, [id number] 13:29:00 Test Item Value Reference Range Interpretation Comments ABO Grouping (test code = 2588) O Rh Factor (test code = 2589) POS [facility] HospitalType and screen, [id number] 13:12:00 Test Item Value Reference Range Interpretation Comments ABO/RH AUTOMATED (BEAKER) (test O POSITIVE code = 2260) Ab Scrn (test code = 890-4) NEGATIVE [facility] HospitalBASIC METABOLIC [id number] 12:36:00 Test Item Value Reference Range Interpretation Comments SODIUM (BEAKER) 152 meq/L 136-145 H (test code = 381) POTASSIUM (BEAKER) 3.3 meq/L 3.5-5.1 L (test code = 379) CHLORIDE (BEAKER) 120 meq/L 98-107 H (test code = 382) CO2 (BEAKER) (test 21 meq/L 22-29 L code = 355) BLOOD UREA NITROGEN 31 mg/dL 7-21 H (BEAKER) (test code = 354) CREATININE (BEAKER) 1.62 mg/dL 0.57-1.25 H (test code = 358) GLUCOSE RANDOM 102 mg/dL 70-105 (BEAKER) (test code = 652) CALCIUM (BEAKER) 8.5 mg/dL 8.4-10.2 (test code = 697) EGFR (BEAKER) (test 36 mL/min/1.73 ESTIMA WALE GFR IS code = 1092) sq m NOT ACCURATE CREATININE CLEARANCE IN PREDICTING GLOMERULAR FILTRATION RATE . ESTIMATED GFR I S NOT APPLICABLE FOR DIALYSIS PATIEN TS. Loan Documentation Specialist BURTON MILLER FLACTIC ACID, [id number] 12:34:00 Test Item Value Reference Range Interpretation Comments LACTATE BLOOD VENOUS (2) (BEAKER) 0.79 mmol/L 0.50-2.20 (test code = 2872) Loan Documentation Specialist ID - PAUL FPT/[id number] 12:25:00 Test Item Value Reference Range Interpretation Comments Protime (test code = 18.2 11.9- 14.2 H 5902-2) seconds INR (test code = 1.6 <=5.9 6301-6) PTT (test code = 35.4 22.5- 36.0 77188-8) seconds LONG (test code = LONG) Effective 08/04/2018: PT Reference Range ChangeNew: 11.9-14.2 Previous: 11.7-14.7 RECOMMENDED COUMADIN/WARFARIN INR THERAPY RANGESSTANDARD DOSE: 2.0-3.0 Includes: PROPHYLAXIS for venous thrombosis, systemic embolization; TREATMENT for venous thrombosis and/or pulmonary embolus.HIGH RISK: Target INR is 2.5-3.5 for patients wiht mechanical heart valves. Lab Interpretation Abnormal (test code = 14568-8) [facility] HospitalPT/[id number] 12:25:00 Test Item Value Reference Range Interpretation Comments PROTIME (BEAKER) (test code = 18.2 seconds 11.9-14.2 H 759) INR (BEAKER) (test code = 370) 1.6 <=5.9 PARTIAL THROMBOPLASTIN TIME 35.4 seconds 22.5-36.0 (BEAKER) (test code = 760) Effective 08/04/2018: PT Reference Range ChangeNew: 11.9-14.2 Previous: 11.7- 14.7RECOMMENDED COUMADIN/WARFARIN INR THERAPY RANGESSTANDARD DOSE: 2.0-3.0 Includes: PROPHYLAXIS for venous thrombosis, systemic embolization; TREATMENT for venous thrombosis and/or pulmonary embolus.HIGH RISK: Target INR is2.5-3.5 for patients wiht mechanical heart valves.Prothrombin time/[id number] 12:24:00 Test Item Value Reference Range Interpretation Comments Protime (test code = 18.2 11.9- 14.2 H 5902-2) seconds INR (test code = 1.6 <=5.9 6301-6) LONG (test code = LONG) Effective 08/04/2018: PT Reference Range ChangeNew: 11.9-14.2 Previous: 11.7-14.7 RECOMMENDED COUMADIN/WARFARIN INR THERAPY RANGESSTANDARD DOSE: 2.0-3.0 Includes: PROPHYLAXIS for venous thrombosis, systemic embolization; TREATMENT for venous thrombosis and/or pulmonary embolus.HIGH RISK: Target INR is 2.5-3.5 for patients wiht mechanical heart valves. Lab Interpretation Abnormal (test code = 90212-7) [facility] HospitalPROTHROMBIN TIME/[id number] 12:24:00 Test Item Value Reference Range Interpretation Comments PROTIME (BEAKER) (test code = 18.2 seconds 11.9-14.2 H 759) INR (BEAKER) (test code = 370) 1.6 <=5.9 Effective 08/04/2018: PT Reference Range ChangeNew: 11.9-14.2 Previous: 11.7- 14.7RECOMMENDED COUMADIN/WARFARIN INR THERAPY RANGESSTANDARD DOSE: 2.0-3.0 Includes: PROPHYLAXIS for venous thrombosis, systemic embolization; TREATMENT for venous thrombosis and/or pulmonary embolus.HIGH RISK: Target INR is2.5-3.5 for patients wiht mechanical heart valves.CBC (HEMOGRAM ONLY)2019-08-30 12:17:00 Test Item Value Reference Range Interpretation Comments WHITE BLOOD CELL COUNT (BEAKER) 30.1 K/ L 3.5-10.5 H (test code = 775) RED BLOOD CELL COUNT (BEAKER) 3.98 M/ L 3.93-5.22 (test code = 761) HEMOGLOBIN (BEAKER) (test code = 11.7 GM/DL 11.2-15.7 410) HEMATOCRIT (BEAKER) (test code = 39.0 % 34.1-44.9 411) MEAN CORPUSCULAR VOLUME (BEAKER) 98.0 fL 79.4-94.8 H (test code = 753) MEAN CORPUSCULAR HEMOGLOBIN 29.4 pg 25.6-32.2 (BEAKER) (test code = 751) MEAN CORPUSCULAR HEMOGLOBIN CONC 30.0 GM/DL 32.2-35.5 L (BEAKER) (test code = 752) RED CELL DISTRIBUTION WIDTH 19.2 % 11.7-14.4 H (BEAKER) (test code = 412) PLATELET COUNT (BEAKER) (test 290 K/CU MM 150-450 code = 756) MEAN PLATELET VOLUME (BEAKER) 9.2 fL 9.4-12.3 L (test code = 754) NUCLEATED RED BLOOD CELLS 0 /100 WBC 0-0 (BEAKER) (test code = 413) RAD, CHEST, 1 VIEW, NON [id number] 12:14:00Reason for exam:->arrived from OSH, GI bleed and PICC in placeShould this be performed at the bedside?->Yes FINAL REPORT INDICATION: arrived from OSH, GI bleed and PICC in place COMPARISON: October 25, 2016 TECHNIQUE: Single frontal view of the chest. FINDINGS: Lungs and pleura: Clear lungs. No effusion.Heart and mediastinum: Normal heart size. Unremarkable mediastinal contours.Osseous structures: No acute abnormality.Other: PICC tip overlies right atrium. Retraction of 3-4 cm is suggested.. IMPRESSION: No acute intrathoracic abnormality. Signed: Cristina Méndez Verified Date/Time: 08/30/2019 12:14:27 Reading Location: [facility] Radiology Reading Room XR chest 1 view portable / [id number] 12:14:00Interface, External Ris In - 08/30/2019 12:16 PM CDTFINAL REPORT INDICATION: arrived from OSH, GI bleed and PICC in place COMPARISON: October 25, 2016 TECHNIQUE: Single frontal view of the chest. FINDINGS: Lungs and pleura: Clear lungs. No effusion.Heart and mediastinum: Normal heart size. Unremarkable mediastinal contours.Osseous structures: No acute abnormality.Other: PICC tipoverlies right atrium. Retraction of 3-4 cm is suggested.. IMPRESSION: No acute intrathoracic abnorm ality. Signed: Cristina Méndez Verified Date/Time: 08/30/2019 12:14:27 Reading Location: [facility] Radiology Reading [facility] [id number] 12:11:00 Test Item Value Reference Range Interpretation Comments pH, Vimal (test code = 2746-6) 7.35 7.32-7.42 pCO2, Vimal (test code = 755) 39 41- 51 mmHg L pO2, Vimal (test code = 2705-2) 51 25- 40 mmHg H O2 Sat, Vimal (test code = 2711-0) 84.4 % 40-70 H HCO3, Vimal (test code = 04187-1) 21 mmol/L 21-29 Base Excess, Vimal (test code = -4.3 mmol/L -2-3 L 1927-3) Patient Temperature (test code = 36.8 C 8310-5) FIO2 (test code = 1819) 21 % Lab Interpretation (test code = Abnormal 24004-3) [facility] [id number] 12:11:00 Test Item Value Reference Range Interpretation Comments PH VENOUS (BEAKER) (test code = 7.35 7.32-7.42 701) PCO2 VENOUS (BEAKER) (test code = 39 mmHg 41-51 L 755) PO2 VENOUS (BEAKER) (test code = 51 mmHg 25-40 H 702) O2 SATURATION VENOUS (BEAKER) 84.4 % 40.0-70.0 H (test code = 703) HCO3 VENOUS (BEAKER) (test code = 21 mmol/L 21-29 705) BASE EXCESS VENOUS (BEAKER) (test -4.3 mmol/L -2.0-3.0 L code = 704) PATIENT TEMPERATURE (BEAKER) 36.8 C (test code = 1818) FIO2 (BEAKER) (test code = 1819) 21.0 % SARS-CoV2/RT-PCR ([facility])2019-08-29 20:45:00 Test Item Value Reference Range Interpretation Comments SARS-COV2/RT-PCR Not Detected Not Detected, (test code = Negative 58137-5) SARS-COV-2 [facility] PERFORMING LAB (test code = 25830-5) LONG (test code = Negative results do not LONG) preclude SARS-CoV-2 infection and should not be [...] of the Act. Fact Sheet for Healthcare Providers:https://www.[employer]/Documents/Xper t%20Xpress%20SARS%20CoV- 2/Fact%20Sheets/302-3802 %41FVOL-XCB-7%20HEALTHCA RE%20PROVIDERS%20FACT%20 SHEET.pdf Fact Sheet for Healthcare Patients:https://www.[employer]/Documents/Xpert %20Xpress%20SARS%20CoV-2 /Fact%20Sheets/3023801% 16HJYC-QSJ-6%20PATIENT%2 0FACT%20SHEET.pdf Performing Laboratory:[facility] [place] [address].[place], [place] [address] [place], [place] [address]ARS-COV2/RT-PCR ([facility])2019-08-29 20:45:00 Test Item Value Reference Range Interpretation Comments SARS-COV2/RT-PCR (test Not Detected Not Detected, Negative code = 3617983) SARS-COV-2 PERFORMING LAB [facility] (test code = 2778407) Negative results do not preclude SARS-CoV-2 infection [...] of the Act.Fact Sheet for Healthcare Pro viders:https://www.[employer]/Documents/Xpert%20Xpress%20SARS%20CoV-2/Fact%20Sh eets/302-3802%85WTLY-RKG-2%20HEALTHCARE%20PROVIDERS%20FACT%20SHEET.pdfFact Sheet for Healthcare Patients:https://www.[employer]/Documents/Xpert%20Xpress%20SARS%20CoV-2/Fact%20Sheets/302-3801%20SARS-COV -2%20PATIENT%20FACT%20SHEET.pdfPerforming Laboratory:[facility] [place] [address]OXMY-RWC2/RT-PCR ([facility]) 2019-08-02 05:46:00 Test Item Value Reference Range Interpretation Comments SARS-COV2/RT-PCR (test Not Detected Not Detected, Negative code = 4878797) SARS-COV-2 PERFORMING LAB [facility] (test code = 8958226) Negative results do not preclude SARS-CoV-2 infection [...] of the Act.Fact Sheet for Healthcare Pro viders:https://www.[employer]/Documents/Xpert%20Xpress%20SARS%20CoV-2/Fact%20Sh eets/3023802%21VVQE-PKT-8%20HEALTHCARE%20PROVIDERS%20FACT%20SHEET.pdfFact Sheet for Healthcare Patients:https://www.[employer]/Documents/Xpert%20Xpress%20SARS%20CoV-2/Fact%20Sheets/3023801%20SARS-COV -2%20PATIENT%20FACT%20SHEET.pdfPerforming Laboratory:[place] [address], [place] [address]USSBW [id number] 18:00:00 Test Item Value Reference Range Interpretation Comments CULTURE (BEAKER) (test No growth in 5 days code = 1095) BLOOD [id number] 18:00:00 Test Item Value Reference Range Interpretation Comments CULTURE (BEAKER) (test No growth in 5 days code = 1095) POCT-GLUCOSE [id number] 07:52:00 Test Item Value Reference Range Interpretation Comments POC-GLUCOSE METER 95 mg/dL 70-110 TESTED AT [facility] 67 ([facility]) (test code = [facility] [address] 1538) TSH/FREE T4 IF [id number] 06:35:00 Test Item Value Reference Range Interpretation Comments THYROID STIMULATING HORMONE 1.58 uIU/mL 0.35-4.94 ([employer]) (test code = 772) VITAMIN D, [id number] 05:55:00 Test Item Value Reference Range Interpretation Comments VITAMIN D 25-OH ([employer]) (test code = < ng/mL 13.0-47.8 L 2764) TROPONIN [id number] 05:12:00 Test Item Value Reference Range Interpretation [...] renalfailure, acidosis, acute neurological disease, and persistent tachyarrhythmia.[id number] 05:04:00 Test Item Value Reference Range Interpretation Comments PHOSPHORUS (BEAKER) (test code = 2.9 mg/dL 2.3-4.7 604) [id number] 05:04:00 Test Item Value Reference Range Interpretation Comments MAGNESIUM (BEAKER) (test code = 1.9 mg/dL 1.6-2.6 627) BASIC METABOLIC [id number] 05:04:00 Test Item Value Reference Range Interpretation [...] PATIEN TS. CBC W/PLT COUNT & AUTO [id number] 04:51:00 Test Item Value Reference Range Interpretation [...] % 0-1 PERCENT (BEAKER) (test code = 2802) POCT-GLUCOSE [id number] 23:47:00 Test Item Value Reference Range Interpretation Comments POC-GLUCOSE METER 121 mg/dL 70-110 H TESTED AT [facility] 6720 (BEAKER) (test code = [place] 1538) [address] CBC W/PLT COUNT & AUTO [id number] 07:13:00 Test Item Value Reference Range Interpretation [...] (BEAKER) (test code = 2801) PHENYTOIN LEVEL, [id number] 06:29:00 Test Item Value Reference Range Interpretation Comments PHENYTOIN (DILANTIN) (BEAKER) 21.3 ug/mL 10.0-20.0 H (test code = 605) Prior to morning dose [id number] 06:18:00 Test Item Value Reference Range Interpretation Comments PHOSPHORUS (BEAKER) (test code = 2.8 mg/dL 2.3-4.7 604) [id number] 06:18:00 Test Item Value Reference Range Interpretation Comments MAGNESIUM (BEAKER) (test code = 2.1 mg/dL 1.6-2.6 627) BASIC METABOLIC [id number] 06:18:00 Test Item Value Reference Range Interpretation [...] S NOT APPLICABLE FOR DIALYSIS PATIEN TS. [id number] 06:12:00 Test Item Value Reference Range Interpretation Comments POTASSIUM (BEAKER) 4.0 meq/L 3.5-5.1 Specimen slightly (test code = 379) hemolyzed [id number] 09:55:00 Test Item Value Reference Range Interpretation Comments PHOSPHORUS (BEAKER) (test code = 2.5 mg/dL 2.3-4.7 604) PHENYTOIN LEVEL, [id number] 07:57:00 Test Item Value Reference Range Interpretation Comments PHENYTOIN (DILANTIN) (BEAKER) 20.0 ug/mL 10.0-20.0 (test code = 605) BLOOD GAS, [id number] 05:02:00 Test Item Value Reference Range Interpretation [...] code = 1819) 21.0 % BASIC METABOLIC [id number] 04:34:00 Test Item Value Reference Range Interpretation [...] S NOT APPLICABLE FOR DIALYSIS PATIEN TS. [id number] 04:30:00 Test Item Value Reference Range Interpretation Comments MAGNESIUM (BEAKER) (test code = 2.3 mg/dL 1.6-2.6 627) CBC W/PLT COUNT & AUTO [id number] 04:12:00 Test Item Value Reference Range Interpretation [...] (BEAKER) (test code = 2801) PHENYTOIN LEVEL, [id number] 22:07:00 Test Item Value Reference Range Interpretation Comments PHENYTOIN (DILANTIN) (BEAKER) 14.2 ug/mL 10.0-20.0 (test code = 605) POCT-GLUCOSE [id number] 13:56:00 Test Item Value Reference Range Interpretation Comments POC-GLUCOSE METER 119 mg/dL 70-110 H TESTED AT [facility] 6720 (BEAKER) (test code = [place] 1538) [address] URINE [id number] 11:44:00 Test Item Value Reference Range Interpretation Comments CULTURE (BEAKER) (test code = See comment 1095) <10,000 col/mL Gram Negative rodsSPUTUM CULTURE + GRAM [id number] 09:04:00 Test Item Value Reference Range Interpretation Comments CULTURE (BEAKER) 4+ Normal respiratory (test code = 1095) rachel present GRAM STAIN RESULT 1+ WBCs (BEAKER) (test code = 1123) GRAM STAIN RESULT 0-5 epithelial cells (BEAKER) (test code = 96321) GRAM STAIN RESULT 2+ gram positive cocci (BEAKER) (test code = in chains and pairs 88180) [id number] 05:12:00 Test Item Value Reference Range Interpretation Comments MAGNESIUM (BEAKER) 2.5 mg/dL 1.6-2.6 Specimen slightly (test code = 627) hemolyzed [id number] 05:12:00 Test Item Value Reference Range Interpretation Comments PHOSPHORUS (BEAKER) 2.2 mg/dL 2.3-4.7 L Specimen slightly (test code = 604) hemolyzed BASIC METABOLIC [id number] 05:12:00 Test Item Value Reference Range Interpretation [...] ESTIMATED GFR. CBC W/PLT COUNT & AUTO [id number] 05:01:00 Test Item Value Reference Range Interpretation [...] 0-1 PERCENT (BEAKER) (test code = 2801) [id number] 21:19:00 Test Item Value Reference Range Interpretation Comments POTASSIUM (BEAKER) (test code = 3.8 meq/L 3.5-5.1 379) POCT-GLUCOSE [id number] 18:19:00 Test Item Value Reference Range Interpretation Comments POC-GLUCOSE METER 113 mg/dL 70-110 H TESTED AT [facility] 6720 (BEAKER) (test code = [place] 1538) [address] POCT-GLUCOSE [id number] 13:32:00 Test Item Value Reference Range Interpretation Comments POC-GLUCOSE METER 107 mg/dL 70-110 TESTED AT [facility] 6720 (BEAKER) (test code = [place] 1538) [address] POCT-GLUCOSE [id number] 07:32:00 Test Item Value Reference Range Interpretation Comments POC-GLUCOSE METER 105 mg/dL 70-110 TESTED AT [facility] 6720 (BEAKER) (test code = [place] 1538) [address] BASIC METABOLIC [id number] 05:54:00 Test Item Value Reference Range Interpretation [...] TO CALCULA TE ESTIMATED GFR. BLOOD GAS, [id number] 05:44:00 Test Item Value Reference Range Interpretation [...] (BEAKER) (test code = 1819) 40.0 % [id number] 05:38:00 Test Item Value Reference Range Interpretation Comments MAGNESIUM (BEAKER) 2.4 mg/dL 1.6-2.6 Specimen slightly (test code = 627) hemolyzed [id number] 05:38:00 Test Item Value Reference Range Interpretation Comments PHOSPHORUS (BEAKER) 2.0 mg/dL 2.3-4.7 L Specimen slightly (test code = 604) hemolyzed CBC W/PLT COUNT & AUTO [id number] 05:14:00 Test Item Value Reference Range Interpretation [...] = 2801) RAD, CHEST, 1 VIEW, NON [id number] 03:01:00Reason for exam:->ETT verficiationShould this be performed [...] MDReport Verified Date/Time: 10/25/2016 03:01:35 Reading Location: [address] Reading Room TROPONIN [id number] 02:55:00 Test Item Value Reference Range Interpretation Comments TROPONIN I (BEDELMA) (test code = 0.31 ng/mL 0.00-0.03 397) [...] Previous: 0.0-4.9CK-MB Reference Range:<6.7 Normal6.7-10.0 Borderline>10.0 AbnormalPOCT-GLUCOSE [id number] 00:18:00 Test Item Value Reference Range Interpretation Comments POC-GLUCOSE METER 103 mg/dL 70-110 TESTED AT [facility] 6720 (BEAKER) (test code = [facility] 1538) [address] BASIC METABOLIC [id number] 18:32:00 Test Item Value Reference Range Interpretation [...] m DATA TO CALCULA TE ESTIMATED GFR. [id number] 18:23:00 Test Item Value Reference Range Interpretation Comments PHOSPHORUS (BEAKER) (test code = 1.6 mg/dL 2.3-4.7 L 604) [id number] 18:23:00 Test Item Value Reference Range Interpretation Comments MAGNESIUM (BEAKER) (test code = 1.6 mg/dL 1.6-2.6 627) POCT-GLUCOSE [id number] 18:16:00 Test Item Value Reference Range Interpretation Comments POC-GLUCOSE METER 118 mg/dL 70-110 H TESTED AT [facility] 6720 (BEAKER) (test code = [place] 1538) [address] TROPONIN [id number] 16:10:00 Test Item Value Reference Range Interpretation Comments TROPONIN I (BEAKER) (test code = 0.27 ng/mL 0.00-0.03 HH [...] 0.0-4.9CK-MB Reference Range:<6.7 Normal6.7-10.0 Borderline>10.0 AbnormalURINALYSIS W/ [id number] 15:35:00 Test Item Value Reference Range Interpretation [...] 516) SOURCE(BEAKER) (test code = Urine, Huntley 8118) HEPATIC FUNCTION [id number] 15:06:00 Test Item Value Reference Range Interpretation [...] code = 8 U/L 6-55 347) PROTHROMBIN TIME/[id number] 14:53:00 Test Item Value Reference Range Interpretation Comments PROTIME (BEAKER) (test code = 17.0 seconds 11.7-14.7 H 759) INR (BEAKER) (test code = 370) 1.4 <=5.9 RECOMMENDED COUMADIN/WARFARIN INR THERAPY RANGESSTANDARD DOSE: 2.0 - 3.0 Includes: PROPHYLAXIS forvenous thrombosis, systemic embolization; TREATMENT for venous thrombosis and/or pulmonary embolus.HIGH RISK: Target INR is 2.5-3.5 for patients with mechanical heart valves.[id number] 14:53:00 Test Item Value Reference Range Interpretation Comments PARTIAL THROMBOPLASTIN TIME 33.9 seconds 22.5-36.0 (BEAKER) (test code = 760) BLOOD GAS, [id number] 14:44:00 Test Item Value Reference Range Interpretation [...]
[2019-09-01 23:58] VITALS: BMI 30.2
--- NOTE | 2019-09-02 01:01 | P.HP ---
Certification for Inpatient Patient admitted to: Inpatient With expected LOS: >2 Midnights Practitioner: I am a practitioner with admitting privileges, knowledge of patient current condition, hospital course, and medical plan of care. Services: Services provided to patient in accordance with Admission requirements found in Title 42 Section 412.3 of the Code of Federal Regulations Patient History Date of Service: 09/01/19 Reason for admission: Transfer from [facility]. History of Present Illness: 88-year-old woman with a history of seizure disorder, history of DVT on Eliquis anticoagulation, nephrolithiasis, chronic indwelling Huntley for obstructive uropathy and nephrolithiasis, was transferred from [facility] here to continue treatment for GI bleed. Patient was in the emergency department on August 28 with a complaint of GI bleed. She was transferred from the emergency department to [facility] to be evaluated by GI. She had l eukocytosis with white cell count up to 22,000. Patient was up only diagnosed with C. diff infection. Noted patient was recently treated with antibiotics for recurrent UTI. Endoscopy or colonoscopy not performed. Patient looks quite debilitated. There was also reports of hematuria at [facility]. Huntley catheter was discontinued during her stay had [facility]. Patient is demented, nonverbal and cannot provide any history. She was kept NPO at [facility] due to altered mental status. Allergies nitrofurantoin Allergy (Verified 05/24/19 14:17) unknown Penicillins Allergy (Verified 05/24/19 14:15) UNKNOWN Home Medications: Allopurinol 200 mg PO DAILY 09/02/19 Amlodipine [Norvasc] 10 mg PO DAILY 09/02/19 Atenolol [Tenormin] 50 mg PO DAILY 09/02/19 Benzonatate [Tessalon Perle] 100 mg PO Q6H PRN 09/02/19 Doxycycline Hyclate 100 mg PO BID 09/02/19 Furosemide [Lasix] 60 mg PO DAILY 09/02/19 Rivaroxaban [Xarelto] 20 mg PO DAILY 09/02/19 Sertraline [Zoloft] 25 mg PO DAILY 09/02/19 Tolterodine Tartrate [Detrol] 2 mg PO BID 09/02/19 Valsartan [Diovan] 160 mg PO DAILY 09/02/19 levETIRAcetam [Keppra*] 750 mg PO BID 09/02/19 - Past Medical/Surgical History Diabetic: No -: HTN -: Chronic kidney disease stage 3 -: Coronary disease with previous stent -: Parkinson's -: Chronic allergies -: Seizure disorder -: History of DVT -: A. fibrillation on chronic anti coagulation -: cardiac stents -: castellanos cyst Psychosocial/ Personal History: She is a , has 14 children, she lives at home. Family takes care of her. - Family History Mother -: Diabetes Brother -: Hypertension, Diabetes - Social History Smoking Status: Never smoker Alcohol use: No CD- Drugs: No Caffeine use: Yes Place of Residence: Home Review of Systems is unable to be obtained Physical Examination - Physical Exam General: In no apparent distress, Other (Awake, debilitated,) HEENT: PERRLA, Other (Drying mucous membrane.), Sclerae nonicteric Neck: Supple, JVD not distended Respiratory: Clear to auscultation bilaterally, Normal air movement Cardiovascular: No edema, Regular rate/rhythm, Normal S1 S2 Gastrointestinal: Normal bowel sounds, Soft and benign, Non-distended, No tenderness Musculoskeletal: No swelling, No erythema Integumentary: Other (Sacral decubitus ulcer) Neurological: Other (Moves all extremities spontaneously. Tremors of right hand.), Dementia Assessment and Plan - Problems (Diagnosis) (1) C. difficile colitis Current Visit: Yes Status: Acute (2) Leukocytosis Current Visit: No Status: Acute (3) Sepsis Onset Date: 04/08/18 Current Visit: No Status: Acute Qualifiers: Sepsis type: sepsis due to unspecified organism Qualified Code(s): A41.9 - Sepsis, unspecified organism (4) Chronic renal disease Current Visit: No Status: Chronic Qualifiers: Chronic kidney disease stage: stage 2 (mild) Qualified Code(s): N18.2 - Chronic kidney disease, stage 2 (mild) (5) History of DVT (deep vein thrombosis) Onset Date: 03/11/17 Current Visit: No Status: Chronic (6) Seizure disorder Onset Date: 03/11/17 Current Visit: No Status: Chronic - Plan Admit to the medical floor. IV hydration with normal saline. Keep NPO. Swallow evaluation IV Flagyl for C. diff for now. Transition to oral vancomycin once patient tolerating PO. Hold anticoagulation given GI bleed. Monitor CBC. Poor prognosis and hospice appropriate. Disposition to halfway. - Advance Directives Does patient have a Living Will: No Does patient have a Durable POA for Healthcare: No
[2019-09-02] MEDS ORDERED: ACETAMINOPHEN 650MG/RECT SUPP RECT PRN (01:56)
[2019-09-02] MEDS ORDERED: ONDANSETRON 4 MG/2 ML VIAL IV PRN (01:56)
[2019-09-02] MEDS ORDERED: D5 0.9 NS 1,000 ML IV SCH (02:00)
[2019-09-02] MEDS ORDERED: D5W 1,000 ML IV ONE (02:46)
[2019-09-02] MEDS: METRONIDAZOLE 500mg IVPB 500 MG/100 ML BAG IV SCH ×3 (04:07→16:01)
[2019-09-02 05:02] LABS: Absolute Lymphocytes (CBC) 1.1 K/uL (0.7-4.9); Basophils % 0.6 % (0-1.3); Hematocrit 31.9 % (36.0-45.0); Lymphocytes % 6.4 % (15.3-44.8); MPV 7.2 fL (7.6-11.3); RBC Red Blood Cell Count 3.38 M/uL (3.86-4.86)
[2019-09-02 05:29] LABS: AST/SGOT 12 U/L (15-37); Albumin 1.8 g/dL (3.4-5.0); Alkaline Phosphatase 68 U/L (45-117); BUN Blood Urea Nitrogen 17 mg/dL (7-18); Bicarbonate 22 mmol/L (21-32); Bilirubin Total 0.3 mg/dL (0.2-1.0); Glucose Level 119 mg/dL (74-106); Magnesium 2.6 mg/dL (1.8-2.4); Phosphorus 1.5 mg/dL (2.5-4.9); Potassium 3.6 mmol/L (3.5-5.1); Protein, Total 5.6 g/dL (6.4-8.2); Sodium Level 156 mmol/L (136-145)
[2019-09-02 05:30] LABS: ALT/SGPT < 6 U/L (12-78)
[2019-09-02] MEDS ORDERED: D5 0.45 NS 1,000 ML with POTASSIUM CL 10 MEQ IV SCH ×2 (07:00)
[2019-09-02] MEDS ORDERED: POTASSIUM PHOS IN 0.9 % NACL 15 MMOL/250 ML BAG IV ONE (09:00)
[2019-09-02] MEDS ORDERED: MORPHINE 2 MG/ML SYR IV PRN (10:37)
--- NOTE | 2019-09-02 13:40 | P.CNS ---
Date of Consult: 09/02/19 Reason for Consult: hypernatremia Chief Complaint: Transfer from [facility]. History of Present Illness: Subjective Pt is apoor historian, Hx obtained from chart An 88-year-old AA woman with a history of seizure disorder, DVT on Eliquis , nephrolithiasis with stent placement in 07/2019 and CKD baeline Cr ~1.1 pt was transferred from [facility] here to continue treatment on 08/28 pt [facility] bleeding pt admitted for continuation of care , in ER na 150, WBC 23K , started on D5W, 1/2 NS pt can provide more HX Physical exam general: confused, alert , NAD , obese Neck; Supple, No elevated JVD hear: RRR, normal S1,2 no murmur or rub Chest: CTAB, no rlaes or wheezes Abdomen: Soft , Nt Extremities No edema or ulcer A/P hypernatremia due to dehydration increased with 1/2 NS will switch fluid to D5W CKD III cr at baseline hypokalemia due to poor oral intake replace prn will check Mg and TSH Sepsis due to C.Diff colitis Cont flagyl consider Po vanco Hx of obstructive uropathy Cr stable will monitor prognosis guarded total time spent 45min Allergies nitrofurantoin Allergy (Verified 05/24/19 14:17) unknown Penicillins Allergy (Verified 05/24/19 14:15) UNKNOWN Home Medications: Allopurinol 200 mg PO DAILY 09/02/19 Amlodipine [Norvasc] 10 mg PO DAILY 09/02/19 Atenolol [Tenormin] 50 mg PO DAILY 09/02/19 Benzonatate [Tessalon Perle] 100 mg PO Q6H PRN 09/02/19 Doxycycline Hyclate 100 mg PO BID 09/02/19 Furosemide [Lasix] 60 mg PO DAILY 09/02/19 Rivaroxaban [Xarelto] 20 mg PO DAILY 09/02/19 Sertraline [Zoloft] 25 mg PO DAILY 09/02/19 Tolterodine Tartrate [Detrol] 2 mg PO BID 09/02/19 Valsartan [Diovan] 160 mg PO DAILY 09/02/19 levETIRAcetam [Keppra*] 750 mg PO BID 09/02/19 - Past Medical/Surgical History Diabetic: No -: HTN -: Chronic kidney disease stage 3 -: Coronary disease with previous stent -: Parkinson's -: Chronic allergies -: Seizure disorder -: History of DVT -: A. fibrillation on chronic anti coagulation -: cardiac stents -: castellanos cyst Psychosocial/ Personal History: She is a , has 14 children, she lives at home. Family takes care of her. - Family History Mother Medical History: Diabetes Brother Medical History: Hypertension, Diabetes - Social History Smoking Status: Unknown if ever smoked Alcohol use: No CD- Drugs: No Caffeine use: Yes Place of Residence: Home Review of Systems is unable to be obtained Physical Examination Temp Pulse Resp BP Pulse Ox 96.6 F L 76 16 128/61 99 09/02/19 12:00 09/02/19 12:00 09/02/19 12:00 09/02/19 12:00 09/02/19 12:00 Laboratory Data (last 24 hrs) 09/02/19 04:55: Sodium 156 H, Potassium 3.6, BUN 17, Creatinine 1.24, Glucose 119 H, Phosphorus 1.5 L, Magnesium 2.6 H, Total Bilirubin 0.3, AST 12 L, ALT < 6 L, Alkaline Phosphatase 68 09/02/19 04:45: WBC 17.3 H D, Hgb 9.8 L, Hct 31.9 L, Plt Count 209
[2019-09-02] MEDS: D5W 1,000 ML IV SCH (15:18)
[2019-09-02] MEDS ORDERED: ALTEPLASE 2 MG/VIAL IV SCH (16:00)
[2019-09-02] MEDS ORDERED: WATER FOR INJ,STERILE 10 ML IV SCH (16:00)
--- NOTE | 2019-09-02 16:52 | PN ---
Date of Progress Note: 09/02/2019 History: Patient seen and examined. Chart reviewed and case discussed with RN. No family at the bedside. Patient is demented, unable to participate in history taking. Patient seem to be moaning in pain. Medications: List reviewed. Code Status: Do not attempt resuscitation. Physical Examination: Vital Signs: Temperature 96.7, heart rate 76, blood pressure 118/58, respirations 16, O2 99% on room air. General: Awake, alert, demented female, not oriented, ill-appearing, obese. CV: S1, S2. Regular rate and rhythm. Peripheral pulses present. Respiratory: Diminished breath sounds at the bases. No wheezing or stridor. Gastrointestinal: Abdomen is soft, nondistended. Positive bowel sounds. Extremities: No clubbing or cyanosis. No significant edema. Neuro: The patient unable to follow commands. Moves all 4 extremities. Opens eyes spontaneously, nonverbal, moaning in pain. Skin: No rashes. Normal skin turgor. Patient does have multiple pressure wounds. Psych: Deferred. Laboratory Data: Sodium 156, potassium 3.6, chloride 127, CO2 of 22, BUN 17, creatinine 1.24, glucose 119, calcium 8.3, phosphorus 1.5, magnesium 2.6, albumin 1.8. WBC 17.3, H and H 9.8 and 31.9, platelets 209, neutrophils 86%. Assessment And Plan: 1. Clostridium difficile colitis. We will continue with isolation. Patient not able to tolerate any p.o. at this time due to her mental status. Speech therapy evaluation is underway. We will need to place Dobbhoff. Right now, she is on IV Flagyl. We will need to switch to oral Vancocin once Dobbhoff is in or if tolerating p.o. 2. Sepsis secondary to above. We will continue with antibiotics. Monitor cultures. 3. Chronic kidney disease stage 2. We will consult Nephrology. We will continue to monitor creatinine. 4. Hypernatremia, likely due to lack of free fluid as patient is demented. We will continue on D5W. 5. Hyperchloremia. We will consult Nephrology. Monitor electrolytes. Continue with IV fluids. 6. Recent gastrointestinal bleed. Patient was transferred to [facility] several days ago for gastrointestinal bleed, was seen by GI there, but no endoscopy was done due to Clostridium difficile. We will monitor H and H, transfuse as needed. 7. Hypomagnesemia. 8. Hypophosphatemia. We will replace and monitor. 9. Severe protein-calorie malnutrition. Continue with supplements. Deep vein thrombosis prophylaxis SCDs. No chemical anticoagulation due to bleed. We will contact family regarding end of life care. Patient seems to be hospice appropriate, is severely demented and has multiple comorbidities, currently DNR. Overall poor prognosis. /ALEXX Voice ID: [id number] Report ID: [id number] MTDD
--- NOTE | 2019-09-02 18:20 | RAD REPORT ---
EXAM DESCRIPTION: Jamir Single View09/02/2019 6:08 pm CLINICAL HISTORY: Device placement dobhoff tube placement IMPRESSION: A dobhoff tube is coiled within the distal esophagus/proximal stomach. The tip is pointi ng cranially within the distal esophagus
[2019-09-02] MEDS: VANCOMYCIN ORAL SOLN 250 MG/5 ML OSYR PO SCH (19:00)
[2019-09-02] MEDS ORDERED: LORazepam 2 MG/ML VIAL IV ONE (19:11)
[2019-09-03] MEDS: JEVITY 1.5 CAL LIQUID 1,000 ML BOT FT SCH ×2 (00:45→23:45)
[2019-09-03 04:59] LABS: Absolute Lymphocytes (CBC) 1.1 K/uL (0.7-4.9); Basophils % 0.9 % (0-1.3); Hematocrit 32.2 % (36.0-45.0); Lymphocytes % 6.4 % (15.3-44.8); MPV 7.6 fL (7.6-11.3); RBC Red Blood Cell Count 3.41 M/uL (3.86-4.86)
[2019-09-03] MEDS: VANCOMYCIN ORAL SOLN 250 MG/5 ML OSYR PO SCH ×5 (05:24→23:45)
[2019-09-03] MEDS: D5W 1,000 ML IV SCH (05:28)
[2019-09-03 05:31] LABS: Platelet Estimate ADEQ
[2019-09-03 05:32] LABS: Blood Morphology Comment NOT SEEN (NOT SEEN)
[2019-09-03 05:48] LABS: Albumin 1.8 g/dL (3.4-5.0); Bilirubin Total 0.2 mg/dL (0.2-1.0); Magnesium 2.3 mg/dL (1.8-2.4); Potassium 3.3 mmol/L (3.5-5.1); Protein, Total 5.6 g/dL (6.4-8.2)
[2019-09-03] MEDS ORDERED: POTASSIUM PHOS IN 0.9 % NACL 15 MMOL/250 ML BAG IV ONE (08:00)
[2019-09-03] MEDS ORDERED: POTASSIUM 25 MEQ EFFERV TAB PO ONE (09:00)
[2019-09-03] MEDS: POTASS/SODIUM PHOSPHATE 1 PKT POWD.PACK PO SCH ×3 (09:48→11:53)
--- NOTE | 2019-09-03 14:43 | P.PN ---
Subjective Date of Service: 09/03/19 Chief Complaint: Transfer from [facility]. Subjective: No new changes, Demented Review of Systems is unable to be obtained Physical Examination - Vital Signs Temperature: 97.1 F Blood Pressure: 129/60 Pulse: 78 Respirations: 20 Pulse Ox (%): 97 - Physical Exam General: Demented, Confused HEENT: Atraumatic, Normocephalic (NGT insitu ) Neck: 2+ carotid pulse no bruit, JVD not distended Respiratory: Clear to auscultation bilaterally, Diminished Cardiovascular: Regular rate/rhythm, Normal S1 S2 Gastrointestinal: Normal bowel sounds, Soft and benign, Non-distended Musculoskeletal: No clubbing, No swelling Neurological: Abnormal speech Urinary: Huntley catheter - Studies Laboratory Data (last 24 hrs) 09/03/19 04:45: Sodium 152 H, Potassium 3.3 L, BUN 12, Creatinine 1.11, Glucose 121 H, Phosphorus 2.0 L, Magnesium 2.3, Total Bilirubin 0.2, AST 14 L, ALT 8 L, Alkaline Phosphatase 64 09/03/19 04:45: WBC 16.7 H, Hgb 10.0 L, Hct 32.2 L, Plt Count 224 Assessment & Plan - Problems (Diagnosis) (1) C. difficile colitis Current Visit: Yes Status: Acute (2) Acute deep vein thrombosis of left lower extremity Onset Date: 11/09/14 Current Visit: No Status: Acute (3) Chronic anticoagulation Current Visit: No Status: Acute (4) Leukocytosis Current Visit: No Status: Acute (5) Chronic renal disease Current Visit: No Status: Chronic Qualifiers: Chronic kidney disease stage: stage 2 (mild) Qualified Code(s): N18.2 - Chronic kidney disease, stage 2 (mild) (6) Hypertension Onset Date: 03/11/17 Current Visit: No Status: Chronic Qualifiers: Hypertension type: essential hypertension Qualified Code(s): I10 - Essential (primary) hypertension (7) Seizure disorder Onset Date: 03/11/17 Current Visit: No Status: Chronic (8) Hypokalemia Onset Date: 04/08/18 Current Visit: No Status: Resolved Physician Review: Patient Assessed, Agree with Above Assessment and Plan Physician Review Additional Text: C diff colitis - on IV flagyl - on NGT -will try vanco liquis tid now - monitor leucocytosis trend Dementia - with NPO status - staff report tolerating water intake today -will start full liquis trial -may need swallow eval if aspiration issues CKD -bcr at baseline Hypokalemia - will replete , start D5 WITH KCL Hematuria - resolved DVT hx -on Eliquis , c/w Daughter d/w , follow improvement over the next 24 hrs
[2019-09-03] MEDS ORDERED: D5 0.2 NS 1,000 ML with POTASSIUM CL 40 MEQ IV SCH ×2 (15:00)
[2019-09-03 19:37] LABS: Potassium 3.9 mmol/L (3.5-5.1)
--- NOTE | 2019-09-03 20:39 | RAD REPORT ---
EXAM DESCRIPTION: X-ray single view chest. CLINICAL HISTORY: 88 years Female, ngt placement COMPARISON: 09/02/2019 at 6:02 PM TECHNIQUE: Single portable x-ray view of the chest performed on 09/02/2019 at 10:51 PM FINDINGS: The lungs are hypoinflated. No airspace process is identified. There is no evidence of a p neumothorax. The cardiac silhouette is stable and is mildly prominent. The mediastinal contours are normal. No acute osseous abnormality is identified. There are degenerative changes of the shoulders and spine . No focal soft tissue abnormalities are seen. Lines and tubes: The tip of the Dobbhoff feeding tube projects over the region of the distal stomac h. The right upper extremity PICC line catheter tip overlies the region of the superior vena cava/atr ial junction. IMPRESSION: 1. The tip of the Dobbhoff feeding tube projects over the region of the distal stomach. 2. Hypoinflation of the lungs. 3. The tip of the right upper extremity PICC line catheter projects over the region of the cavoatrial junction. Electronically signed by: Lora Barrientos DO 09/02/2019 11:18 PM CDT Due to temporary technical issues with the PACS/Fluency reporting system, reports are being signed by the in house radiologist without review as a courtesy to ensure prompt reporting. The interpreting r adiologist is fully responsible for the content of the report.
[2019-09-04] MEDS: VANCOMYCIN ORAL SOLN 250 MG/5 ML OSYR PO SCH ×3 (05:14→17:38)
[2019-09-04 05:58] LABS: Absolute Lymphocytes (CBC) 1.3 K/uL (0.7-4.9); Basophils % 0.5 % (0-1.3); Hematocrit 31.1 % (36.0-45.0); Lymphocytes % 9.2 % (15.3-44.8); MPV 7.8 fL (7.6-11.3); RBC Red Blood Cell Count 3.27 M/uL (3.86-4.86)
[2019-09-04 06:27] LABS: Albumin 1.7 g/dL (3.4-5.0); Bilirubin Total 0.2 mg/dL (0.2-1.0); Phosphorus 1.6 mg/dL (2.5-4.9); Potassium 4.1 mmol/L (3.5-5.1); Protein, Total 5.4 g/dL (6.4-8.2)
[2019-09-04] MEDS: POTASS/SODIUM PHOSPHATE 1 PKT POWD.PACK PO SCH ×3 (06:45→10:16)
[2019-09-04] MEDS ORDERED: D5W 1,000 ML with POTASSIUM CL 20 MEQ IV SCH ×2 (11:00)
--- NOTE | 2019-09-04 11:15 | RAD REPORT ---
EXAM DESCRIPTION: XR Abdomen, 1 View CLINICAL HISTORY: Dobhoff cath placement TECHNIQUE: Frontal supine view of the abdomen/pelvis. Images obtained at 9:29 PM. COMPARISON: 6:02 PM the same day. FINDINGS: Gastrointestinal tract: Unremarkable. No dilation. Bones/joints: Unremarkable. Tubes, lines and devices: Radiopaque tip of the nasogastric tube advanced just in the gastric fu ndus. Left ureteral stent in good position. IMPRESSION: Lines and tubes as above. Electronically signed by: Debbie Hendrickson MD 09/02/2019 9:51 PM CDT Due to temporary technical issues with the PACS/Fluency reporting system, reports are being signed by the in house radiologist without review as a courtesy to ensure prompt reporting. The interpreting r adiologist is fully responsible for the content of the report.
--- NOTE | 2019-09-04 14:14 | P.PN ---
Subjective Date of Service: 09/04/19 Chief Complaint: Transfer from [facility]. Subjective: No new changes (-confused but wants NGT tube out - more awake today) Physical Examination - Vital Signs Temperature: 98 F Blood Pressure: 114/64 Pulse: 95 Respirations: 20 Pulse Ox (%): 99 - Physical Exam General: Alert, In no apparent distress, Oriented x2, Confused HEENT: Atraumatic, Normocephalic Neck: Supple, 2+ carotid pulse no bruit, JVD not distended Respiratory: Clear to auscultation bilaterally, Normal air movement Cardiovascular: Regular rate/rhythm, Normal S1 S2 Gastrointestinal: Normal bowel sounds, Soft and benign, Non-distended Integumentary: No rashes, No breakdown - Studies Laboratory Data (last 24 hrs) 09/04/19 05:15: WBC 14.5 H, Hgb 9.6 L, Hct 31.1 L, Plt Count 236 09/04/19 05:15: Sodium 150 H, Potassium 4.1, BUN 11, Creatinine 1.10, Glucose 119 H, Phosphorus 1.6 L, Total Bilirubin 0.2, AST 24, ALT 12, Alkaline Phosphatase 68 09/03/19 18:50: Sodium 150 H, Potassium 3.9, BUN 11, Creatinine 1.20, Glucose 131 H 09/03/19 15:02: Magnesium 2.3 09/03/19 15:02: Potassium 4.1 Assessment And Plan - Current Problems (Diagnosis) (1) C. difficile colitis Current Visit: Yes Status: Acute (2) Acute deep vein thrombosis of left lower extremity Onset Date: 11/09/14 Current Visit: No Status: Acute (3) Chronic anticoagulation Current Visit: No Status: Acute (4) Leukocytosis Current Visit: No Status: Acute (5) Chronic renal disease Current Visit: No Status: Chronic Qualifiers: Chronic kidney disease stage: stage 2 (mild) Qualified Code(s): N18.2 - Chronic kidney disease, stage 2 (mild) (6) Hypertension Onset Date: 03/11/17 Current Visit: No Status: Chronic Qualifiers: Hypertension type: essential hypertension Qualified Code(s): I10 - Essential (primary) hypertension (7) Seizure disorder Onset Date: 03/11/17 Current Visit: No Status: Chronic (8) Hypokalemia Onset Date: 04/08/18 Current Visit: No Status: Resolved Physician Review: Patient Assessed, Agree with Above Assessment and Plan Physician Review Additional Text: C diff colitis - C/w Vanco -improving diarrhea - c/w monitor leucocytosis trend Presumed Dysphagia - on NGT btube but tolerating full liquid - will dc NGT tube today -cw/ full liquids - follow formal speech and swallow eval in am - if unable to tolerated modified diet , will d/w with family about hospice vs peg tube placement Dementia - as above , stable CKD -bcr at baseline Hypokalemia - improved , can dc IVF - D5 WITH KCL Hematuria - resolved DVT hx -on Eliquis , c/w Daughter d/w , follow improvement over the next 24 hrs, if able to tolerated po intake , then plan for dc home
[2019-09-04] MEDS ORDERED: POTASSIUM PHOS 30 MM in NA CHLORIDE 0.9% 500 ML IV ONE (14:15)
[2019-09-04] MEDS: D5W 1,000 ML IV SCH (15:57)
[2019-09-04] MEDS: levETIRAcetam 500 MG TAB PO SCH (20:03)
--- NOTE | 2019-09-04 23:43 | PN ---
Date of Progress Note: 09/03/2019 Chief Complaint: Hypernatremia, hyperosmolar. History Of Present Illness: Patient is 88-year-old woman with history of seizure disorder, DVT on Eliquis, nephrolithiasis with stent placement. Patient underwent stent placement in July 2019. Creatinine baseline is 1.1. Patient is transfer from [facility] were she was on treatment for GI bleeding. She is admitted to this hospital for continued care. She was found to have severe hypernatremia. Her ER workup showed sodium 150. She had leukocytosis at 23,000. She was started on D5 and half-normal saline for treatment and dehydration and hypernatremia. Review of Systems: Unobtainable. Patient is lethargic. She denies any new complaints. Physical Examination: Lungs: Diminished breath sounds at bases. Heart: S1, S2. Abdomen: Soft, benign. Extremities: No edema. No ulcer. Impression And Plan: 1. Hypernatremia due to dehydration. Continue IV fluids. Patient was switched to D5W for hypernatremia treatment. 2. Chronic kidney disease stage 3. Creatinine is at baseline. 3. Hypokalemia. Plan is to check magnesium level and TSH and continue replacement. 4. Sepsis. Antibiotics will be adjusted by primary team. Patient has history of Clostridium difficile colitis. Continue Flagyl. Continue p.o. vancomycin. 5. History of obstructive uropathy. Creatinine stable. Monitor for evidence of urinary retention. EB/MODL Voice ID: [id number] Report ID: [id number] [facility]ITAL[facility]
--- NOTE | 2019-09-05 00:01 | PN ---
Date of Progress Note: 09/04/2019 Chief Complaint: Hypernatremia, hyperosmolar, and dehydration. Patient has multiple medical problems. She was treated at [facility] for GI bleeding. She has obstructive uropathy. Creatinine level remains at baseline. Physical Examination: General: Not in acute distress. Lungs: Clear to auscultation bilaterally. Heart: S1, S2. Abdomen: Soft, benign. Extremities: No edema. Review of Systems: Unobtainable, patient is somewhat confused. Laboratory Data: Blood WORK: WBC 14.5, hemoglobin 9.6, platelet count 236,000. Sodium 150, potassium 4.1, BUN 11, creatinine 1.1, glucose 119. Impression And Plan: 1. Prerenal azotemia with history of dehydration. Continue IV fluids. 2. Hypophosphatemia, replacement was ordered. 3. Clostridium difficile colitis. Continue Flagyl. Consider vancomycin. 4. Acute deep vein thrombosis of lower extremity, management with anticoagulation per primary team. 5. Leukocytosis. Continue antibiotics. Monitor white count and blood pressure. 6. Hypokalemia, resolved. Patient will have replacement as needed. Monitor magnesium level. EB/MODL Voice ID: [id number] Report ID: [id number] [place]
[2019-09-05] MEDS: VANCOMYCIN ORAL SOLN 250 MG/5 ML OSYR PO SCH ×5 (00:19→23:02)
[2019-09-05] MEDS: D5W 1,000 ML IV SCH ×3 (06:23→22:53)
[2019-09-05 07:00] LABS: Absolute Lymphocytes (CBC) 1.9 K/uL (0.7-4.9); Basophils % 0.7 % (0-1.3); Hematocrit 31.3 % (36.0-45.0); Lymphocytes % 16.2 % (15.3-44.8); MPV 8.1 fL (7.6-11.3); RBC Red Blood Cell Count 3.31 M/uL (3.86-4.86)
[2019-09-05 07:16] LABS: Albumin 1.8 g/dL (3.4-5.0); Bilirubin Total 0.3 mg/dL (0.2-1.0); Magnesium 2.2 mg/dL (1.8-2.4); Phosphorus 4.4 mg/dL (2.5-4.9); Potassium 4.5 mmol/L (3.5-5.1); Protein, Total 5.4 g/dL (6.4-8.2)
[2019-09-05] MEDS: RIVAROXABAN 10 MG TABLET PO SCH (09:50)
[2019-09-05] MEDS: levETIRAcetam 500 MG TAB PO SCH ×2 (09:51→21:41)
--- NOTE | 2019-09-05 12:17 | P.PN ---
Subjective Date of Service: 09/05/19 Chief Complaint: Transfer from [facility]. Subjective: No new changes, No C/O voiced <Baltazar Avila - Last Filed: 09/05/19 12:11> Date of Service: 09/05/19 <Gerard Fournier - Last Filed: 09/05/19 18:18> Review of Systems General: Unremarkable Eyes: Unremarkable ENT: Unremarkable Respiratory: Unremarkable Cardiovascular: Unremarkable Gastrointestinal: As per HPI Genitourinary: As per HPI Musculoskeletal: Unremarkable Integumentary: Unremarkable Neurological: Unremarkable Lymphatics: Unremarkable <Baltazar Avila - Last Filed: 09/05/19 12:11> Physical Examination - Vital Signs Temperature: 98.7 F Blood Pressure: 129/59 Pulse: 86 Respirations: 20 Pulse Ox (%): 96 - Physical Exam General: Alert, In no apparent distress HEENT: Atraumatic, Normocephalic Neck: Supple Respiratory: Clear to auscultation bilaterally, Normal air movement Cardiovascular: Normal pulses, Regular rate/rhythm, Normal S1 S2 Capillary refill: <2 Seconds Gastrointestinal: Normal bowel sounds, Soft and benign Musculoskeletal: No erythema, No tenderness, No warmth Integumentary: No significant lesion, No erythema, No warmth Neurological: Normal speech, Abnormal strength - Studies Laboratory Data (last 24 hrs) 09/05/19 14:45: Magnesium Cancelled 09/05/19 05:46: Sodium 148 H, Potassium 4.5, BUN 8, Creatinine 0.81, Glucose 83, Phosphorus 4.4 D, Magnesium 2.2, Total Bilirubin 0.3, AST 22, ALT 12, Alkaline Phosphatase 65 09/05/19 05:46: WBC 11.9 H D, Hgb 9.6 L, Hct 31.3 L, Plt Count 249 09/04/19 15:30: Magnesium 2.3 <Baltazar Avila - Last Filed: 09/05/19 12:11> - Studies Laboratory Data (last 24 hrs) 09/05/19 14:45: Magnesium Cancelled 09/05/19 05:46: Sodium 148 H, Potassium 4.5, BUN 8, Creatinine 0.81, Glucose 83, Phosphorus 4.4 D, Magnesium 2.2, Total Bilirubin 0.3, AST 22, ALT 12, Alkaline Phosphatase 65 09/05/19 05:46: WBC 11.9 H D, Hgb 9.6 L, Hct 31.3 L, Plt Count 249 <Gerard Fournier - Last Filed: 09/05/19 18:18> Assessment & Plan Discharge Plan: Home Plan to discharge in: 48 Hours - Code Status/Comfort Care Code Status Assessed: Yes (Patient is DNR) Physician Review: Patient Assessed, Agree with Above Assessment and Plan Physician Review Additional Text: Assessment C. difficile colitis with leukocytosis Hypernatremia secondary to dehydration Hypophosphatemia and hypokalemia Hypertension Seizure disorder Dementia Dysphagia Acute DVT of left lower extremity on chronic anticoagulation therapy Plan C. difficile colitis with leukocytosis: Will continue with oral vancomycin at this time. Hypernatremia secondary to dehydration: Nephrology has been consulted on this case. Will continue with nephrology recommendations. Patient's sodium is 148 with morning labs today. Anticipate she will require additional 48-72 hr of hospitalization in order to improve the patient's dehydration and hypernatremia. Hypophosphatemia and hypokalemia: These have been replaced, will continue to monitor. Electrolyte protocol in place. Hypertension: Will continue patient's home medications and p.r.n. medications as needed. Will continue to monitor patient's blood pressure during this hospitalization. Seizure disorder: Will continue patient's home medications. Will continue to monitor patient for seizure-like activity. Dementia: Will discuss disposition with patient's family. During previous admission patient stated that they did not wish to have her in a skilled facility due to perception that they can care for her home and risk for Ren virus. Will discuss this further with family. Dysphagia: Speech therapy consult has been completed. Patient with recent MBS. Patient can continue recommendations of thin liquids and pureed diet. Acute DVT of left lower extremity on chronic anticoagulation therapy: Will continue patient's home medications Xarelto. Assessment And Plan - Current Problems (Diagnosis) (1) C. difficile colitis Current Visit: Yes Status: Acute (2) Acute deep vein thrombosis of left lower extremity Onset Date: 11/09/14 Current Visit: No Status: Acute (3) Chronic anticoagulation Current Visit: No Status: Acute (4) Leukocytosis Current Visit: No Status: Acute (5) Chronic renal disease Current Visit: No Status: Chronic Qualifiers: Chronic kidney disease stage: stage 2 (mild) Qualified Code(s): N18.2 - Chronic kidney disease, stage 2 (mild) (6) Hypertension Onset Date: 03/11/17 Current Visit: No Status: Chronic Qualifiers: Hypertension type: essential hypertension Qualified Code(s): I10 - Essential (primary) hypertension (7) Seizure disorder Onset Date: 03/11/17 Current Visit: No Status: Chronic (8) Hypokalemia Onset Date: 04/08/18 Current Visit: No Status: Resolved Physician Review: Patient Assessed, Agree with Above Assessment and Plan Physician Review Additional Text: C diff colitis - C/w Vanco -improving diarrhea - c/w monitor leucocytosis trend Presumed Dysphagia - on NGT btube but tolerating full liquid - will dc NGT tube today -cw/ full liquids - follow formal speech and swallow eval in am - if unable to tolerated modified diet , will d/w with family about hospice vs peg tube placement Dementia - as above , stable CKD -bcr at baseline Hypokalemia - improved , can dc IVF - D5 WITH KCL Hematuria - resolved DVT hx -on Eliquis , c/w Daughter d/w , follow improvement over the next 24 hrs, if able to tolerated po intake , then plan for dc home Critical Care: No Time Spent Managing Pts Care (In Minutes): 55 <Baltazar Avila - Last Filed: 09/05/19 12:11> Physician Review Additional Text: Patient seen and examined. Agree with plan of care. Will continue to reassess and monitor. Will discuss further with nephrology. <Gerard Fournier - Last Filed: 09/05/19 18:18>
[2019-09-05] MEDS: JUVEN PACKET PO SCH ×2 (21:00→21:42)
[2019-09-05] MEDS: ENSURE HIGH PROTEIN 237 ML CAN PO SCH (21:42)
--- NOTE | 2019-09-06 02:30 | PN ---
Date of Progress Note: 09/05/2019 Chief Complaint: Hypernatremia, hyperosmolar, volume depletion, dehydration. History: Patient previously was treated at [facility] for GI bleeding. She has multiple medical problems. She has obstructive uropathy. Creatinine level remains at baseline, although patient was found to have hypernatremia and was started on IV fluids. Patient has hypophosphatemia and replacement was ordered. Review of Systems: Denies new complaints. Physical Examination: Lungs: Diminished breath sounds at bases. Heart: S1, S2. Abdomen: Soft, benign. Extremities: No edema. Blood Work: Hemoglobin 9.6, WBC 11.9, platelet count 249,000. Sodium 148, potassium 4.5, chloride 120, CO2 22, BUN 8, creatinine 0.81, magnesium 2.2, calcium 8.1, phosphorus 4.4. Impression And Plan: 1. Hypernatremia, gradually improving. Continue IV fluids. Patient developed some prerenal azotemia. Creatinine level is stabilizing at baseline. 2. Hypophosphatemia. Replacement was ordered and phosphorus is improving. 3. Clostridium difficile colitis. Continue Flagyl. Consider vancomycin by mouth. 4. Deep vein thrombosis in the lower extremity. Management with anticoagulation per primary team. 5. Hypomagnesemia, resolved. Replacement as needed. Monitor magnesium level. SAMY/ALEXX Voice ID: [id number] Report ID: [id number] MTDD
[2019-09-06 05:27] LABS: Absolute Lymphocytes (CBC) 1.5 K/uL (0.7-4.9); Basophils % 0.7 % (0-1.3); Hematocrit 30.8 % (36.0-45.0); Lymphocytes % 16.4 % (15.3-44.8); MPV 8.3 fL (7.6-11.3); RBC Red Blood Cell Count 3.26 M/uL (3.86-4.86)
[2019-09-06 05:51] LABS: ALT/SGPT 14 U/L (12-78); AST/SGOT 16 U/L (15-37); Albumin 1.7 g/dL (3.4-5.0); Alkaline Phosphatase 64 U/L (45-117); BUN Blood Urea Nitrogen 7 mg/dL (7-18); Bicarbonate 22 mmol/L (21-32); Bilirubin Total 0.3 mg/dL (0.2-1.0); Glucose Level 85 mg/dL (74-106); Potassium 3.9 mmol/L (3.5-5.1); Protein, Total 5.5 g/dL (6.4-8.2); Sodium Level 142 mmol/L (136-145)
[2019-09-06] MEDS: VANCOMYCIN ORAL SOLN 250 MG/5 ML OSYR PO SCH ×2 (05:57→11:51)
[2019-09-06] MEDS: ENSURE HIGH PROTEIN 237 ML CAN PO SCH (09:00)
[2019-09-06] MEDS: JUVEN PACKET PO SCH (09:00)
[2019-09-06] MEDS ORDERED: MEDIHONEY 44 ML TOPICAL TUBE TOP SCH (09:00)
[2019-09-06 09:10] VITALS: O2SAT 94
[2019-09-06] MEDS: levETIRAcetam 500 MG TAB PO SCH (09:16)
[2019-09-06] MEDS: RIVAROXABAN 10 MG TABLET PO SCH (09:16)
--- NOTE | 2019-09-06 11:20 | P.DS ---
Admission Date: 09/01/19 Discharge Date: 09/06/19 Disposition: ROUTINE DISCHARGE Discharge Condition: FAIR Reason for Admission: Transfer from [facility]. Consultations: Nephrology: Dr. Flores Procedures: Chest Xray Reason for Exam: check ng tube placement Report Status: Signed EXAM DESCRIPTION: Jamir Single View09/02/2019 6:08 pm CLINICAL HISTORY: Device placement dobhoff tube placement IMPRESSION: A dobhoff tube is coiled within the distal esophagus/proximal stomach. The tip is pointing cranially within the distal esophagus XR Abdomen CLINICAL HISTORY: Dobhoff cath placement TECHNIQUE: Frontal supine view of the abdomen/pelvis. Images obtained at 9:29 PM. COMPARISON: 6:02 PM the same day. FINDINGS: Gastrointestinal tract: Unremarkable. No dilation. Bones/joints: Unremarkable. Tubes, lines and devices: Radiopaque tip of the nasogastric tube advanced just in the gastric fundus. Left ureteral stent in good position. MPRESSION: Lines and tubes as above. Electronically signed by: Debbie Hendrickson MD 09/02/2019 9:51 PM CDT Due to temporary technical issues with the PACS/Fluency reporting system, reports are being signed by the in house radiologist without review as a courtesy to ensure prompt reporting. The interpreting radiologist is fully responsible for the content of the report. Dictated By: Dong Garcia MD 09/05/19 0814 Signed By: Dong Garcia MD 09/05/19 0815 X-ray single view chest. CLINICAL HISTORY: 88 years Female, ngt placement COMPARISON: 09/02/2019 at 6:02 PM TECHNIQUE: Single portable x-ray view of the chest performed on 09/02/2019 at 10:51 PM FINDINGS: The lungs are hypoinflated. No airspace process is identified. There is no evidence of a pneumothorax. The cardiac silhouette is stable and is mildly prominent. The mediastinal contours are normal. No acute osseous abnormality is identified. There are degenerative changes of the shoulders and spine. No focal soft tissue abnormalities are seen. Lines and tubes: The tip of the Dobbhoff feeding tube projects over the region of the distal stomach. The right upper extremity PICC line catheter tip overlies the region of the superior vena cava/atrial junction. IMPRESSION: 1. The tip of the Dobbhoff feeding tube projects over the region of the distal stomach. 2. Hypoinflation of the lungs. 3. The tip of the right upper extremity PICC line catheter projects over the region of the cavoatrial junction. Medical Problem List C. 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 Patient was in the emergency department on August 28 with a complaint of GI bleed. She was transferred from the emergency department to [facility] to be evaluated by GI. She had leukocytosis with white cell count up to 22,000. Patient was up only diagnosed with C. diff infection and was transferred back to our facility for further management. Hospital Course: 88-year-old woman with a history of seizure disorder, history of DVT on Eliquis anticoagulation, nephrolithiasis, chronic indwelling Huntley for obstructive uropathy and nephrolithiasis, was transferred from [facility] here to continue treatment for GI bleed. Patient was in the emergency department on August 28 with a complaint of GI bleed. She was transferred from the emergency department to [facility] to be evaluated by GI. She had leukocytosis with white cell count up to 22,000. Patient was up only diagnosed with C. diff infection. Noted patient was recently treated with antibiotics for recurrent UTI. Endoscopy or colonoscopy not performed. At the time of admission to [facility] in [place] patient was NPO due to decreased level of consciousness. Patient was transferred back to our facility on the for continuation of her treatment for C. diff. Initially patient was not responsive enough to tolerate oral diet so NG tube was inserted. Patient mentation improved and she was again evaluated by speech therapist. Patient with recent MBS approximately 1 month ago. After evaluation from speech that determination was made that the continue with previous recommendations for patient to have thin liquids and a pureed diet. At this time antibiotics were transitioned to oral for vancomycin 125 mg oral every 6 hr. Patient tolerated this well. Patient was also found to be dehydrated with a sodium level greater than 150. Patient has improved greatly since her admission, sodium is within normal limits, white blood cell count within normal limits. At this time patient is tolerating oral vancomycin well. Patient will be discharged home with family where she has home health coming out to see her as well. Discussed case with family, offered senior care facility and hospice. Patient's family reports that she has sufficient in-home care and that she be discharged home with home health services that are already in place For C. diff infection patient will continue with vancomycin 125 mg oral every 6 hr for an additional 6 days. Patient also noted to have decubitus ulcer to sacrum. Patient will need to initiate care with the wound healing center and continue with their recommendations. Will assure that this is done prior to patient's discharge. Patient with history of hypertension will continue with the previously prescribed medications including amlodipine 10 mg p.o. once daily, atenolol 50 mg p.o. once daily, valsartan 160 mg p.o. once daily. Further adjusted medicati ons can be performed by primary care doctor. Patient with history of seizure disorder, patient to continue with Keppra 750 mg twice daily. Patient will need to follow up with neurology for further a djustment of the medication as needed. Patient with DVT to the left lower extremity currently being treated with Xarelto. Patient is to continue with the Xarelto 20 mg p.o. daily. Vital Signs/Physical Exam: Temp Pulse Resp BP Pulse Ox 97.4 F 85 20 167/79 H 100 09/06/19 08:00 09/06/19 08:00 09/06/19 08:00 09/06/19 08:00 09/06/19 08:00 General: Alert, In no apparent distress, Oriented x3 HEENT: Atraumatic, Normocephalic Neck: Supple Respiratory: Normal air movement Cardiovascular: No edema, Regular rate/rhythm, Normal S1 S2 Capillary refill: <2 Seconds Gastrointestinal: Normal bowel sounds, Soft and benign Musculoskeletal: No contractures, No erythema, No tenderness Integumentary: No breakdown, No significant lesion Neurological: Normal speech, Normal strength at 5/5 x4 extr, Normal tone Laboratory Data at Discharge: WBC 9.4 K/uL (4.3-10.9) D 09/06/19 05:00 Hgb 9.7 g/dL (12.0-15.0) L 09/06/19 05:00 Hct 30.8 % (36.0-45.0) L 09/06/19 05:00 Plt Count 269 K/uL (152-406) 09/06/19 05:00 Sodium 142 mmol/L (136-145) 09/06/19 05:00 Potassium 3.9 mmol/L (3.5-5.1) 09/06/19 05:00 BUN 7 mg/dL (7-18) 09/06/19 05:00 Creatinine 0.68 mg/dL (0.55-1.3) 09/06/19 05:00 Glucose 85 mg/dL (74-106) 09/06/19 05:00 Phosphorus 4.4 mg/dL (2.5-4.9) D 09/05/19 05:46 Magnesium Cancelled 09/05/19 14:45 Total Bilirubin 0.3 mg/dL (0.2-1.0) 09/06/19 05:00 AST 16 U/L (15-37) 09/06/19 05:00 ALT 14 U/L (12-78) 09/06/19 05:00 Alkaline Phosphatase 64 U/L (45-117) 09/06/19 05:00 Home Medications: Allopurinol 200 mg PO DAILY 09/02/19 Amlodipine [Norvasc] 10 mg PO DAILY 09/02/19 Atenolol [Tenormin] 50 mg PO DAILY 09/02/19 Benzonatate [Tessalon Perle] 100 mg PO Q6H PRN 09/02/19 Doxycycline Hyclate 100 mg PO BID 09/02/19 Furosemide [Lasix] 60 mg PO DAILY 09/02/19 Rivaroxaban [Xarelto] 20 mg PO DAILY 09/02/19 Sertraline [Zoloft] 25 mg PO DAILY 09/02/19 Tolterodine Tartrate [Detrol] 2 mg PO BID 09/02/19 Valsartan [Diovan] 160 mg PO DAILY 09/02/19 levETIRAcetam [Keppra*] 750 mg PO BID 09/02/19 Vancomycin Oral Soln [Vancocin HCl*] 125 ml PO Q6HR 6 Days #80 ml 09/06/19 New Medications: Vancomycin Oral Soln [Vancocin HCl*] 125 ml PO Q6HR 6 Days #80 ml Patient Discharge Instructions: 1. Please follow up with her primary care doctor in the next week to follow up this hospitalization. 2. 88-year-old woman with a history of seizure disorder, history of DVT on Eliquis anticoagulation, nephrolithiasis, chronic indwelling Huntley for obstructive uropathy and nephrolithiasis, was transferred from [facility] here to continue treatment for GI bleed. Patient was in the emergency department on August 28 with a complaint of GI bleed. She was transferred from the emergency department to [facility] to be evaluated by GI. She had leukocytosis with white cell count up to 22,000. Patient was up only diagnosed with C. diff infection. Noted patient was recently treated with antibiotics for recurrent UTI. Endoscopy or colonoscopy not performed. At the time of admission to [facility] in [place] patient was NPO due to decreased level of consciousness. Patient was transferred back to our facility on the for continuation of her treatment for C. diff. Initially patient was not responsive enough to tolerate oral diet so NG tube was inserted. Patient mentation improved and she was again evaluated by speech therapist. Patient with recent MBS approximately 1 month ago. After evaluation from speech that determination was made that the continue with previous recommendations for patient to have thin liquids and a pureed diet. At this time antibiotics were transitioned to oral for vancomycin 125 mg oral every 6 hr. Patient tolerated this well. Patient was also found to be dehydrated with a sodium level greater than 150. Patient has improved greatly since her admission, sodium is within normal limits, white blood cell count within normal limits. At this time patient is tolerating oral vancomycin well. Patient will be discharged home with family where she has home health coming out to see her as well. Discussed case with family, offered senior care facility and hospice. Patient's family reports that she has sufficient in-home care and that she be discharged home with home health services that are already in place For C. diff infection patient will continue with vancomycin 125 mg oral every 6 hr for an additional 6 days. Patient also noted to have decubitus ulcer to sacrum. Patient will need to initiate care with the wound healing center and continue with their recommendations. Will assure that this is done prior to patient's discharge. Patient with history of hypertension will continue with the previously prescribed medications including amlodipine 10 mg p.o. once daily, atenolol 50 mg p.o. once daily, valsartan 160 mg p.o. once daily. Further adjusted medicati ons can be performed by primary care doctor. Patient with history of seizure disorder, patient to continue with Keppra 750 mg twice daily. Patient will need to follow up with neurology for further adjustment of the medication as needed. Patient with DVT to the left lower extremity currently being treated with Xarelto. Patient is to continue with the Xarelto 20 mg p.o. daily. Diet: Continue with dietary recommendations including a pureed diet and thin liquids Activity: Bedrest Time spent managing pt's care (in minutes): 55
[2019-09-06 12:50] VITALS: BP 125/69; TEMP 97
--- NOTE | 2019-09-06 16:20 | PN ---
Date of Progress Note: 09/06/2019 Subjective: Patient was admitted with acute kidney injury secondary to prerenal and severe hypernatr emia. After hydration, patient's kidney function normalized. Sodium has largely normalized Physical Examination: Vital Signs: When I saw the patient, blood pressure of 137/67, pulse of 84, afebrile. The patient h ad good urine output. Chest: Clear to auscultation. Heart: S1, S2. Regular. Abdomen: Soft nontender. Extremities: No edema. Neurologic: Alert. No focality. Laboratory Data: Sodium 142, potassium 3.9 bicarb 22, BUN 7, creatinine 0.6, calcium of 8. H and H 9.7/30.8. Current Medications: The patient is on include: 1.Tylenol. 2.Xarelto. 3.Vancomycin oral. 4.Ensure. 5.D5. Assessment And Plan: 1.Acute kidney injury secondary to prerenal, recovered, resolved. 2.Hypernatremia secondary to poor intake, dehydration, resolved. 3.Alkalosis secondary to dehydration, resolved. Patient cleared from the Renal standpoint for disch arge planning, to follow up as outpatient. CIRILO/ALEXX Voice ID: [id number] Report ID: [id number]
[2019-09-07] MEDS ORDERED: RIVAROXABAN 20 MG TABLET PO SCH (09:00)
== END 2019-09-06 14:47 | disposition home health service (06) | DRG 871 ==
LOC: 2ND 22:27
PROVIDERS: ADMIT Internal Medicine; ATTEND Family Medicine
DX: A41.9 Sepsis, unspecified organism (principal); E43 Unspecified severe protein-calorie malnutrition; A04.72 Enterocolitis due to Clostridium difficile, not specified as recurrent; E87.0 Hyperosmolality and hypernatremia; N17.9 Acute kidney failure, unspecified; E87.3 Alkalosis; Z66 Do not resuscitate; Z79.01 Long term (current) use of anticoagulants; Z79.899 Other long term (current) drug therapy; I12.9 Hypertensive chronic kidney disease with stage 1 through stage 4 chronic kidney disease, or unspecified chronic kidney disease; G20 Parkinson's disease; I25.10 Atherosclerotic heart disease of native coronary artery without angina pectoris; Z86.718 Personal history of other venous thrombosis and embolism; Z88.1 Allergy status to other antibiotic agents; N18.2 Chronic kidney disease, stage 2 (mild); E66.9 Obesity, unspecified; Z68.30 Body mass index [BMI] 30.0-30.9, adult; F03.90 Unspecified dementia, unspecified severity, without behavioral disturbance, psychotic disturbance, mood disturbance, and anxiety; E87.8 Other disorders of electrolyte and fluid balance, not elsewhere classified; E83.42 Hypomagnesemia; E83.39 Other disorders of phosphorus metabolism; E86.0 Dehydration; R31.9 Hematuria, unspecified; R13.10 Dysphagia, unspecified; R79.89 Other specified abnormal findings of blood chemistry; L89.159 Pressure ulcer of sacral region, unspecified stage; Z88.0 Allergy status to penicillin
CPT/HCPCS: 36415; 36430; 71045; 74018; 80048; 80053; 80076; 81003; 81015; 82272; 82550; 82947; 83605; 83690; 83735; 84100; 84132; 84145; 84484; 85014; 85018; 85025; 85610; 85730; 86850; 86900; 86901; 87040; 87086; 87088; 87205; 87804; 92610; 93005; 94760; 96365; 96366; 96367; 96368; 99251; 99285; C9113; J2997; J3370; J7030; J7040; J7799; P9016; U0002